=== PATIENT | female | born 1940 | race Caucasian/White ===

== ENCOUNTER 2016-12-11 02:48 | Emergency (ER) | payer MEDICARE, MEDICAID ==
[~2016-12-11] VITALS: Ht 167.6 cm; Wt 68.0 kg
[~2016-12-11 02:48] MED LIST: ACYC800T PO; AMLO10TA82 PO; APIX5TAB PO; APIX5TAB2 PO; ASPI-933 PO; BISO1TAB39 PO; BISO1TAB6 PO; BUME0.5T3 PO; CALC-654 PO; CARV3.12 PO; CIPR500T4; CLN.1T PO; CRV25T PO; DIGO250T PO; DILT120C PO; DILT240C53 PO; DLT120CCR PO; FURO20TA4 PO; HCT25T PO; HYDR-34 PO; HYDR25TA4 PO; IRBE300T13 PO; LOSA100T7 PO; MAGN400C PO; MECL25TA56 PO; METH4TAB PO; METO-333 PO; METO100T2 PO; MINO2.5T PO; NF-VAL40T PO; NITR-65 PO; OMG1KC PO; PITA1TAB2 PO; POTA8TAB6 PO; RT-ALBUINH INH; TIOT4MIS2 INH; VALS80TA30 PO; ZINC50TA51 PO
[2016-12-11] MEDS ORDERED: POTA8TAB6 PO (03:05)
[2016-12-11] MEDS ORDERED: HYDR-3812 PO (03:05)
[2016-12-11] MEDS ORDERED: TIOT4MIS2 INH (03:05)
[2016-12-11] MEDS ORDERED: VALS80TA PO (03:05)
[2016-12-11] MEDS ORDERED: RT-ALBUINH INH (03:05)
[2016-12-11] MEDS ORDERED: cloNIDine 0.1 MG (CATAPRES) TAB PO ONE ×2 (03:15→04:00)
--- NOTE | 2016-12-11 03:20 | ED Cardiac General ---
History of Present Illness General Chief Complaint: Cardiac/General Problems Stated Complaint: HIGH BLOOD PRESSURE Nursing Triage Note: REPORTS HYPERTENSION. Source: patient (SOMEWHAT LIMITED HISTORIAN) History of Present Illness Time seen by provider: 02:55 Initial Comments PT ARRIVES VIA POV FROM HOME C/O ELEVATED BP--WAS 200/100 PT COMPLETELY ASYMPTOMATIC--NO CHEST PAIN, NO PALPITATIONS, NO SHORTNESS OF BREATH, NO HEADACHE, NO VISION CHANGES, NO DIZZINESS, NO NAUSEA/VOMITING, NO PARESTHESIAS OR MOTOR DEFICITS PT STATES SHE TOOK HER BP MEDS AT 0900 YESTERDAY AM, AND SECOND DOSE AN HOUR AGO STATES SHE NORMALLY SLEEPS DURING THE DAY AND IS AWAKE AT NIGHT, WAS GETTING READY TO GO TO BED JUST PRIOR TO ARRIVAL AND DECIDED TO CHECK HER BP AND IT WAS ELEVATED, SO SHE CAME HERE PT HAS LUNG CANCER, AND HAD SURGERY ON RIGHT LUNG 2 1/2 YEARS AGO. NO CHEMO OR RADIATION AT THAT TIME. PT RECENTLY HAS HAD A RECURRENCE AND WAS AT ONCOLOGIST OFFICE YESTERDAY AM AT 10 :00 TO ARRANGE FOR RADIATION TREATMENTS. WAS TOLD HER BP WAS "HIGH" AT THAT TIME , BUT DOES NOT REMEMBER HOW HIGH IT WAS PT HAS A LONG HISTORY OF HTN, CHF AND ATRIAL FIBRILLATION AND TAKES ELIQUIS, ASPIRIN 81 MG, CARDIZEM 240 MG, LASIX 20 MG, METOPROLOL 100 MG BID PT HAS BEEN TO ER SEVERAL TIMES FOR THIS SAME COMPLAINT OF ELEVATED BP PCP: ALCIDES BARNARD CYLINDER HONER: DR. OLIVO ONCOLOGY: INES KEARNEY Allergies and Home Medications Allergies Coded Allergies: Penicillins (Unverified Allergy, Mild, RASH, 09/24/10) RUPAL Inhibitors (Verified Allergy, Unknown, HIVES, 12/11/16) atorvastatin (Verified Allergy, Unknown, HIVES, 12/11/16) iodine (Verified Allergy, Unknown, HIVES, 12/11/16) Home Medications Albuterol Sulfate 18 Gm Hfa.aer.ad #18 1 INHALER INH UD (Reported) Apixaban 5 Mg Tablet 5 MG PO BID (Reported) LAST FILLED #60 6-16 Aspirin 81 Mg Tablet.dr 81 MG PO HS (Reported) Calcium Carbonate/Vitamin D3 1 Each Tablet 1 TAB PO HS (Reported) Diltiazem HCl 240 Mg Cap.er.24h 240 MG PO DAILY (Reported) LAST FILLED #30 6-9-16 Furosemide 20 Mg Tablet #30 20 MG PO DAILY Prescribed by: LICHA ANDERSON on 07/10/16 0953 Hydrocodone/Acetaminophen 1 Each Tablet #60 1 TAB PO UD (Reported) Magnesium Oxide 400 Mg Capsule 800 MG PO HS (Reported) TAKES 2 (400MG) CAPSULES Metoprolol Tartrate 100 Mg Tablet 100 MG PO BID (Reported) LAST FILLED #180 3-6-16 [place] 3 Polyunsat Fatty Acids 1,000 Mg Cap 3,000 MG PO HS (Reported) TAKES 3 (1000MG) CAPSULES Potassium Chloride 8 Meq Tablet.er #30 1 TAB PO UD (Reported) Tiotropium [place] 4 Gm Mist.inhal #4 1 INHALER INH UD (Reported) Valsartan 80 Mg Tablet 80 MG PO UD (Reported) Review of Systems Constitutional: no symptoms reported Respiratory: No Symptoms Reported Cardiovascular: See HPIDenies Chest Pain, Denies Edema, Denies Irregular Heart Rate, Denies Lightheadedness, Denies Palpitations, Denies Syncope Gastrointestinal: No Symptoms Reported Genitourinary: No Symptoms Reported Musculoskeletal: no symptoms reported Skin: no symptoms reported Psychiatric/Neurological: No Symptoms Reported Endocrine: No Symptoms Reported Hematologic/Lymphatic: No Symptoms Reported Past Iovcbzz-Woklmq-Blrnmq Hx Patient Social History Alcohol Use: Denies Use Recreational Drug Use: No Smoking Status: Former Smoker Type Used: Cigarettes Former Smoker/When Quit: Mar 15, 1982 Recent Foreign Travel: No Contact w/Someone Who Travel: No Recent Infectious Disease Expo: No Recent Hopitalizations: No Physical Abuse Screen: No Sexual Abuse: No Immunizations Up To Date Date of Pneumonia Vaccine: Aug 17, 2013 Date of Influenza Vaccine: Sep 07, 2013 Seasonal Allergies Seasonal Allergies: No Surgeries HX Surgeries: Yes (CARDIAC CATH; RIGHT LUNG RESECTION/TUMOR REMOVAL) Surgeries: Cardiac, Gallbladder, Hysterectomy, Lobectomy, Tonsillectomy Respiratory Hx Respiratory Disorders: Yes (+ 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. 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 Genitourinary Hx Genitourinary Disorders: Yes Genitourinary Disorders: Bladder Infection Gastrointestinal Hx Gastrointestinal Disorders: Yes (HAD GALL BLADDER DISEASE - REMOVED A LONG TIME AGO) Gastrointestinal Disorders: Gall Bladder Disease Musculoskeletal Hx Musculoskeletal Disorders: No Endocrine Hx Endocrine Disorders: No HEENT HX ENT Disorders: Yes HEENT Disorders: Cataract Cancer Hx Cancer: Yes (S/P RIGHT LUNG RESECTION) Cancer: Lung Psychosocial Hx Psychiatric Problems: Yes Behavioral Health Disorders: Anxiety, Bipolar, Depression Integumentary HX Skin/Integumentary Disorder: No Blood Transfusions Hx Blood Disorders: No Adverse Reaction to a Blood Tr: No Family Medical History Family Medial History: Patient reports no known family medical history. Physical Exam Vital Signs Vital Sign - Last 12Hours 12/11/16 03:05 Temp 97.8 Pulse 97 Resp 18 B/P 183/97 Pulse Ox 98 O2 Delivery Room Air Capillary Refill : Less Than 3 Seconds General Appearance: No Apparent Distress Anxious HEENT: PERRL/EOMI Neck: Full Range of Motion Normal Inspection Non Tender SuppleNo Carotid Bruit , No JVD Respiratory: Normal Breath Sounds No Accessory Muscle Use No Respiratory Distress Cardiovascular: No Edema No JVD No Murmur Normal Peripheral Pulses Irregularly Irregular Gastrointestinal: Normal Bowel Sounds No Organomegaly No Pulsatile Mass Non Tender Soft Extremity: Normal Capillary Refill Normal Inspection Normal Range of Motion Non Tender No Calf Tenderness Neurologic/Psychiatric: Alert Oriented x3 No Motor/Sensory 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 DTR'S INTACT. ) Skin: Normal Color Warm/Dry Progress/Results/Core Measures Results/Orders My Orders Orders-JASPREET OWENS DO Clonidine Tablet (Catapres Tablet) (12/11/16 03:15) Clonidine Tablet (Catapres Tablet) (12/11/16 04:00) Medications Given in ED Current Medications Medications Dose Ordered Sig/Ayan Route Start Time Stop Time Status Last Admin Dose Admin Clonidine HCl 0.1 mg ONCE ONCE PO 12/11/16 03:15 12/11/16 03:17 DC 12/11/16 03:19 0.1 MG Clonidine HCl 0.1 mg ONCE ONCE PO 12/11/16 04:00 12/11/16 04:01 DC 12/11/16 04:15 0.1 MG Vital Signs/I&O Vital Sign - Last 12Hours 12/11/16 12/11/16 12/11/16 12/11/16 03:05 03:31 03:46 04:00 Temp 97.8 Pulse 97 86 92 91 Resp 18 16 16 23 B/P 183/97 156/99 161/102 155/96 Pulse Ox 98 98 96 97 O2 Delivery Room Air Room Air Room Air Room Air 12/11/16 04:30 Pulse 90 Resp 22 B/P 143/86 Pulse Ox 97 O2 Delivery Room Air Blood Pressure Mean: 125 Progress Note : Progress Note BP DOWN TO 143/86 AT DISMISSAL PT RESTING QUIETLY FOR REMAINDER OF ER STAY Departure Impression Impression: Primary Impression: Hypertensive urgency Disposition: HOME, SELF-CARE Condition: Improved Departure-Patient Inst. Referrals: SANDY MAJANO DO (PCP) Primary Care Physician Patient Instructions: Heart Healthy Diet, High Blood Pressure (DC), High Blood Pressure Emergencies Add. Discharge Instructions: TAKE YOUR MEDICATIONS EXACTLY PRESCRIBED FOLLOW UP WITH DR. OLIVO THIS WEEK FOR FURTHER CARE RETURN TO ER IF PROBLEMS WORSEN All discharge instructions reviewed with patient and/or family. Voiced understanding. JASPREET OWENS DO Dec 11, 2016 03:20
[2016-12-11 03:31] VITALS: BP 156/99
[2016-12-11 03:46] VITALS: BP 161/102
[2016-12-11 04:00] VITALS: BP 155/96
[2016-12-11 04:30] VITALS: BP 143/86
[2016-12-11 04:41] VITALS: BP 143/86
== END 2016-12-11 04:40 | disposition home or self-care (01) ==
LOC: EDUNIT# 02:48 → ER 02:51
DX: I16.0 Hypertensive urgency (principal); I48.2 Chronic atrial fibrillation; I50.9 Heart failure, unspecified; C34.90 Malignant neoplasm of unspecified part of unspecified bronchus or lung; Z87.891 Personal history of nicotine dependence; Z79.82 Long term (current) use of aspirin; Z79.01 Long term (current) use of anticoagulants; Z79.899 Other long term (current) drug therapy
CPT/HCPCS: 99283

== ENCOUNTER 2017-03-06 21:33 | Inpatient (IN) | payer MEDICARE, MEDICAID ==
[~2017-03-06] VITALS: Ht 166.4 cm; Wt 76.3 kg
[~2017-03-06 21:33] MED LIST changes: +HYDR-3812 PO; +VALS80TA PO
[2017-03-06 21:45] VITALS: BP 150/79
--- NOTE | 2017-03-06 21:57 | Diagnostic Imaging Report ---
INDICATION: Right-sided weakness and headache. EXAMINATION: Frontal chest was obtained at 9:51 p.m. COMPARISON: 10/14/16. FINDINGS: There is cardiomegaly. There is minimal central vascular prominence. There is some residual scarring or parenchymal density in the right base which is similar to the prior study. The left lung is clear. There is biapical bullous disease. IMPRESSION: Cardiomegaly. COPD changes. Stable parenchymal scarring or density in the right base compared with 10/14/16. Dictated by: Dictated on workstation # [id number]
--- NOTE | 2017-03-06 21:58 | Diagnostic Imaging Report ---
INDICATION: Right-sided weakness and headache. EXAMINATION: Noncontrast brain CT was performed. COMPARISON: 05/28/13. FINDINGS: There are mild atrophic changes. There is no focal parenchymal abnormality in the brain. There is no extra-axial fluid collection. Ventricles are normal in size and position. Calvarial windows are unremarkable. The visualized portions of the orbits and sinuses appear unremarkable. IMPRESSION: Mild atrophic changes with no acute intracranial abnormality. Stable appearance compared with 05/28/13. Dictated by: Dictated on workstation # [id number]
--- NOTE | 2017-03-06 22:14 | ED Neurological Problem ---
General Chief Complaint: Neuro-Stroke Like Symptoms Stated Complaint: WEAKNESS Source: patient Exam Limitations: no limitations History of Present Illness Time seen by provider: 21:38 Initial Comments This 76 year old woman presents to the ER with headache, dizziness, SOA, and right-sided leg weakness. Last known well time was about 04:00 when she went to bed. The headache, dizziness and shortness of air have been present all day since waking at around 13:00. The right leg weakness/ataxia started about 30 minutes prior to arrival. Patient is on Eliquis and therefore is not a TPA candidate. She has a significant cardiac history including atrial fibrillation and congestive heart failure. She also has a history of lung cancer. 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 Her primary care provider is Dr. Donato in [place]. Her oncologist is Dr. Mejía in [place]. A partial NIH was performed before CT scan with a score of 2 for ataxia and right leg weakness. Upon returning from CT, a full NIH stroke assessment was performed with a score of 2 for right leg ataxia and dysarthria. Patient's reports her speech is a little slurred from usual. The strength in the leg improved while in CT. Allergies and Home Medications Allergies Coded Allergies: Penicillins (Unverified Allergy, Mild, RASH, 09/24/10) RUPAL Inhibitors (Verified Allergy, Unknown, HIVES, 12/11/16) atorvastatin (Verified Allergy, Unknown, HIVES, 12/11/16) iodine (Verified Allergy, Unknown, HIVES, 12/11/16) Home Medications Albuterol Sulfate 18 Gm Hfa.aer.ad, 1 INHALER INH UD, #18 (Reported) Apixaban 5 Mg Tablet, 5 MG PO BID, (Reported) LAST FILLED #60 05-14-16 Aspirin 81 Mg Tablet.dr, 81 MG PO HS, (Reported) Calcium Carbonate/Vitamin D3 1 Each Tablet, 1 TAB PO HS, (Reported) Diltiazem HCl 240 Mg Cap.er.24h, 240 MG PO DAILY, (Reported) LAST FILLED #30 05-03-16 Furosemide 20 Mg Tablet, 20 MG PO DAILY, #30 Ref 11 Prescribed by: LICHA ANDERSON on 07/10/16 0953 Hydrocodone/Acetaminophen 1 Each Tablet, 1 TAB PO UD, #60 (Reported) Magnesium Oxide 400 Mg Capsule, 800 MG PO HS, (Reported) TAKES 2 (400MG) CAPSULES Metoprolol Tartrate 100 Mg Tablet, 100 MG PO BID, (Reported) LAST FILLED #180 3-6-16 [place] 3 Polyunsat Fatty Acids 1,000 Mg Cap, 3,000 MG PO HS, (Reported) TAKES 3 (1000MG) CAPSULES Potassium Chloride 8 Meq Tablet.er, 1 TAB PO UD, #30 (Reported) Tiotropium [place] 4 Gm Mist.inhal, 1 INHALER INH UD, #4 (Reported) Valsartan 80 Mg Tablet, 80 MG PO UD, (Reported) Constitutional: no symptoms reported Eyes: No Symptoms Reported Ears, Nose, Mouth, Throat: no symptoms reported Respiratory: see HPI Cardiovascular: see HPI Gastrointestinal: no symptoms reported Genitourinary: no symptoms reported : No Musculoskeletal: no symptoms reported Skin: no symptoms reported Psychiatric/Neurological: See HPI Endocrine: No Symptoms Reported Hematologic/Lymphatic: No Symptoms Reported Past Bjjfdrw-Nuxuib-Zgmuic Hx Patient Social History Type Used: Cigarettes Former Smoker/When Quit: Mar 15, 1982 Recent Hopitalizations: No Immunizations Up To Date Date of Pneumonia Vaccine: Aug 17, 2013 Date of Influenza Vaccine: Sep 07, 2013 Seasonal Allergies Seasonal Allergies: No Surgeries HX Surgeries: Yes (CARDIAC CATH; RIGHT LUNG RESECTION/TUMOR REMOVAL) Surgeries: Cardiac (cardiac catheter 2012), Gallbladder, Hysterectomy, Lobectomy, Tonsillectomy Respiratory Hx Respiratory Disorders: Yes (+ 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. 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 Genitourinary Hx Genitourinary Disorders: Yes Genitourinary Disorders: Bladder Infection Gastrointestinal Hx Gastrointestinal Disorders: Yes (HAD GALL BLADDER DISEASE - REMOVED A LONG TIME AGO) Gastrointestinal Disorders: Gall Bladder Disease Musculoskeletal Hx Musculoskeletal Disorders: No Endocrine Hx Endocrine Disorders: No HEENT HX ENT Disorders: Yes HEENT Disorders: Cataract Cancer Hx Cancer: Yes (LBBB, LVH, chf, diastolic heart failure) Cancer: Lung Psychosocial Hx Psychiatric Problems: Yes Behavioral Health Disorders: Anxiety, Bipolar, Depression Integumentary HX Skin/Integumentary Disorder: No Blood Transfusions Hx Blood Disorders: No Adverse Reaction to a Blood Tr: No Family Medical History Family Medial History: Patient reports no known family medical history. Physical Exam Vital Signs Vital Sign - Last 12Hours 03/06/17 03/06/17 03/06/17 21:35 21:45 22:03 Temp 99.3 Pulse 72 Resp 18 B/P (MAP) 150/79 Pulse Ox 99 O2 Delivery Nasal Cannula O2 Flow Rate 2.00 Capillary Refill : General Appearance: WD/WN, no apparent distress HEENT: PERRL/EOMI, normal ENT inspection, pharynx normal Neck: normal inspection Respiratory: lungs clear, normal breath sounds, no respiratory distress, no accessory muscle use Cardiovascular: no edema, no murmur, irregularly irregular Gastrointestinal: normal bowel sounds, non tender, soft Extremities: non-tender, normal inspection, no pedal edema Neurologic/Psychiatric: measurement advisor II-XII nml as tested, alert, normal mood/affect, oriented x 3, abnormal cerebellar tests (slight ataxia of the right lower extremity), abnormal gait (unable to coordinate and bear weight appropriately on the right lower extremity), motor weakness (drift of the right lower extremity) Crainal Nerves: normal hearing, PERRL, abnormal speech (slight dysarthria) Coordination/Gait: normal finger to nose, abnormal gait Motor/Sensory: no sensory deficit, no pronator drift Skin: normal color, warm/dry Progress/Results/Core Measures Results/Orders Lab Results Laboratory Tests Test 03/06/17 21:59 03/06/17 22:00 03/06/17 22:16 03/06/17 22:25 Range/Units Glucometer 128 H 70-110 MG/DL White Blood Count 7.7 4.3-11.0 10^3/uL Red Blood Count 4.06 L 4.35-5.85 10^6/uL Hemoglobin 12.0 11.5-16.0 G/DL Hematocrit 38 35-52 % Mean Corpuscular Volume 93 80-99 FL Mean Corpuscular Hemoglobin 30 25-34 PG Mean Corpuscular Hemoglobin Concent 32 32-36 G/DL Red Cell Distribution Width 13.9 10.0-14.5 % Platelet Count 348 130-400 10^3/uL Mean Platelet Volume 9.7 7.4-10.4 FL Neutrophils (%) (Auto) 70 42-75 % Lymphocytes (%) (Auto) 18 12-44 % Monocytes (%) (Auto) 10 0-12 % Eosinophils (%) (Auto) 2 0-10 % Basophils (%) (Auto) 0 0-10 % Neutrophils # (Auto) 5.4 1.8-7.8 X 10^3 Lymphocytes # (Auto) 1.4 1.0-4.0 X 10^3 Monocytes # (Auto) 0.7 0.0-1.0 X 10^3 Eosinophils # (Auto) 0.2 0.0-0.3 10^3/uL Basophils # (Auto) 0.0 0.0-0.1 10^3/uL Sodium Level 138 135-145 MMOL/L Potassium Level 5.7 H 3.6-5.0 MMOL/L Chloride Level 105 98-107 MMOL/L Carbon Dioxide Level 18 L 21-32 MMOL/L Anion Gap 15 H 5-14 MMOL/L Blood Urea Nitrogen 26 H 7-18 MG/DL Creatinine 1.46 H 0.60-1.30 MG/DL Estimat Glomerular Filtration Rate 35 BUN/Creatinine Ratio 18 Glucose Level 116 H 70-105 MG/DL Calcium Level 9.3 8.5-10.1 MG/DL Magnesium Level 2.3 1.8-2.4 MG/DL Total Bilirubin 0.3 0.1-1.0 MG/DL Aspartate Amino Transf (AST/SGOT) 28 5-34 U/L Alanine Aminotransferase (ALT/SGPT) 16 0-55 U/L Alkaline Phosphatase 104 40-136 U/L Troponin I < 0.30 <0.30 NG/ML B-Type Natriuretic Peptide 412.8 H <100.0 PG/ML Total Protein 7.9 6.4-8.2 G/DL Albumin 4.1 3.2-4.5 G/DL Prothrombin Time 13.3 12.2-14.7 SEC INR Comment 1.0 0.8-1.4 Activated Partial Thromboplast Time 30 24-35 SEC D-Dimer 0.33 0.00-0.49 UG/ML Urine Color YELLOW Urine Clarity CLEAR Urine pH 6 5-9 Urine Specific [place] 1.015 L 1.016-1.022 Urine Protein 3+ H NEGATIVE Urine Glucose (UA) NEGATIVE NEGATIVE Urine Ketones NEGATIVE NEGATIVE Urine Nitrite NEGATIVE NEGATIVE Urine Bilirubin NEGATIVE NEGATIVE Urine Urobilinogen NORMAL NORMAL MG/DL Urine Leukocyte Esterase 3+ H NEGATIVE Urine RBC (Auto) NEGATIVE NEGATIVE Urine RBC NONE /HPF Urine WBC 10-25 H /HPF Urine Squamous Epithelial Cells 10-25 H /HPF Urine Crystals PRESENT H /LPF Urine Calcium Oxalate Crystals FEW H /LPF Urine Bacteria FEW H /HPF Urine Casts PRESENT /LPF Urine Hyaline Casts 5-10 H /LPF Urine Mucus NEGATIVE /LPF Urine Culture Indicated YES My Orders Orders - ZULY BRYANT MD Cbc With Automated Diff (03/06/17 21:39) Protime With Inr (03/06/17 21:39) Partial Thromboplastin Time (03/06/17 21:39) Comprehensive Metabolic Panel (03/06/17 21:39) Fibrin Degradation Products (03/06/17 21:39) Troponin I (03/06/17 21:39) Ua Culture If Indicated (03/06/17 21:39) Chest 1 View, Ap/Pa Only (03/06/17 21:39) Ekg Tracing (03/06/17 21:39) Accucheck Stat ONCE (03/06/17 21:39) Saline Lock/Iv-Start (03/06/17 21:39) Saline Lock/Iv-Start (03/06/17 21:39) Vital Signs-Stroke Q1H (03/06/17 21:39) Ct Head Wo-R/O Stroke (03/06/17 21:39) O2 (03/06/17 21:39) Intake & Output 06,14,22 (03/06/17 21:39) Monitor-Rhythm Ecg Trace Only (03/06/17 21:39) Dysphagia Screening Tool (03/06/17 21:39) Magnesium (03/06/17 22:15) BNP (03/06/17 22:15) Ns Iv 1000 Ml (Sodium Chloride 0.9%) (03/06/17 22:46) Urine Culture (03/06/17 22:25) Ciprofloxacin Iv 400mg/200ml (Cipro Iv S (03/06/17 23:30) Acetaminophen Tablet (Tylenol Tablet) (03/06/17 23:30) Aspirin Tablet (Aspirin Tablet) (03/06/17 23:30) Medications Given in ED Current Medications Medications Dose Ordered Sig/Ayan Route Start Time Stop Time Status Last Admin Dose Admin Acetaminophen 1,000 mg ONCE ONCE PO 03/06/17 23:30 03/06/17 23:31 DC 03/06/17 23:36 1,000 MG Aspirin 325 mg ONCE ONCE PO 03/06/17 23:30 03/06/17 23:31 DC 03/06/17 23:35 325 MG Ciprofloxacin/ Dextrose 200 ml @ 200 mls/hr ONCE ONCE IV 03/06/17 23:30 03/07/17 00:29 DC 03/06/17 23:37 200 MLS/HR Sodium Chloride 1,000 ml @ 0 mls/hr Q0M ONCE IV 03/06/17 22:46 03/06/17 22:47 DC 03/06/17 22:55 1,000 MLS/HR Vital Signs/I&O Vital Sign - Last 12Hours 03/06/17 03/06/17 03/06/17 03/06/17 21:35 21:45 22:03 22:15 Temp 99.3 Pulse 72 78 74 Resp 18 18 13 B/P (MAP) 150/79 150/79 150/71 Pulse Ox 99 99 99 O2 Delivery Nasal Cannula Nasal Cannula O2 Flow Rate 2.00 2.00 03/06/17 03/06/17 22:45 23:15 Pulse 58 52 Resp 15 19 B/P (MAP) 173/73 173/73 Pulse Ox 99 96 Point of Care Testing Finger Stick Blood Glucose: 128 Blood Glucose Action Taken: RN NOTIFIED Progress Note #1: Time: 22:48 Progress Note Stroke activation was paged shortly after patient's arrival. CT showed no evidence of CVA or hemorrhage. Patient was found to be hyperkalemic and in acute renal failure. A liter of IV saline was ordered. Progress Note #2: Progress Note Weakness and ataxia of the right lower extremity improved the patient was still unsteady on her feet. Patient was found to have urinary tract infection and Cipro was given. Tylenol was given for headache. ECG Initial ECG Impression Date: Mar 06, 2017 Initial ECG Impression Time: 22:03 Initial ECG Rate: 76 Initial ECG Rhythm: A Fib/Flutter Comment Atrial fibrillation/flutter with controlled rate at 76. No acute ST elevation or depression. Chronic left bundle branch block. Diagnostic Imaging Diagonstic Imaging: CT Plain Films/CT/US/NM/MRI: head Comments CT head viewed by me and report reviewed. See report below: NAME: [facility] REC#: [id number] PT STATUS: REG ER : 1940 PHYSICIAN: ZULY BRYANT MD ADMIT DATE: 03/06/17/ER Signed Date of Exam: 03/06/17 CT HEAD WO-R/O STROKE INDICATION: Right-sided weakness and headache. EXAMINATION: Noncontrast brain CT was performed. COMPARISON: 05/28/13. FINDINGS: There are mild atrophic changes. There is no focal parenchymal abnormality in the brain. There is no extra-axial fluid collection. Ventricles are normal in size and position. Calvarial windows are unremarkable. The visualized portions of the orbits and sinuses appear unremarkable. IMPRESSION: Mild atrophic changes with no acute intracranial abnormality. Stable appearance compared with 05/28/13. Dictated by: Dictated on workstation # [id number] <Dictated by JUN COTA MD> Diagonstic Imaging: Xray Plain Films/CT/US/NM/MRI: chest Comments Chest x-ray viewed by me and report reviewed. See report below: NAME: [facility] REC#: [id number] PT STATUS: REG ER : 1940 PHYSICIAN: ZULY BRYANT MD ADMIT DATE: 03/06/17/ER Signed Date of Exam:03/06/17 CHEST 1 VIEW, AP/PA ONLY INDICATION: Right-sided weakness and headache. EXAMINATION: Frontal chest was obtained at 9:51 p.m. COMPARISON: 10/14/16. FINDINGS: There is cardiomegaly. There is minimal central vascular prominence. There is some residual scarring or parenchymal density in the right base which is similar to the prior study. The left lung is clear. There is biapical bullous disease. IMPRESSION: Cardiomegaly. COPD changes. Stable parenchymal scarring or density in the right base compared with 10/14/16. Dictated by: Dictated on workstation # [id number] Dict: 03/[id number] Trans: 03/06/172158 [facility] [id number] Interpreted by: JUN COTA MD Electronically signed by: JUN COTA MD 03/06/17 [id number] Departure Communication Time/Spoke to Admitting Phy: 23:[address] Lee Communication/Consulting Dr. Rdz was also consulted due to patient's chronic cardiac problems. Impression Impression: Primary Impression: Ataxia Additional Impressions: Hyperkalemia Urinary tract infection Qualified Codes: N39.0 - Urinary tract infection, site not specified Headache Qualified Codes: R51 - Headache Acute renal insufficiency Disposition: ADMITTED INPATIENT Condition: Improved Decision to Admit Reason: Admit from ER (General) Decision to Admit/Date: Mar 06, 2017 Time/Decision to Admit Time: 22:00 Departure-Patient Inst. Referrals: NO,LOCAL PHYSICIAN (PCP/Family) Primary Care Physician ZULY BRYANT MD Mar 06, 2017 22:14
[2017-03-06 22:15] VITALS: BP 150/71
[2017-03-06 22:19] LABS: RED BLOOD COUNT 4.06 10^6/uL (4.35-5.85); WHITE BLOOD COUNT 7.7 10^3/uL (4.3-11.0)
[2017-03-06 22:20] LABS: BASOPHILS % (AUTO) 0 % (0-10); EOSINOPHILS # (AUTO) 0.2 10^3/uL (0.0-0.3); EOSINOPHILS % (AUTO) 2 % (0-10); LYMPHOCYTES # (AUTO) 1.4 X 10^3 (1.0-4.0); LYMPHOCYTES % (AUTO) 18 % (12-44); MEAN CORPUSCULAR HEMOGLOBIN 30 PG (25-34); MEAN CORPUSCULAR HGB CONC 32 G/DL (32-36); MEAN CORPUSCULAR VOLUME 93 FL (80-99); MEAN PLATELET VOLUME 9.7 FL (7.4-10.4); MONOCYTES # (AUTO) 0.7 X 10^3 (0.0-1.0); MONOCYTES % (AUTO) 10 % (0-12); NEUTROPHILS # (AUTO) 5.4 X 10^3 (1.8-7.8); NEUTROPHILS % (AUTO) 70 % (42-75); PLATELET COUNT 348 10^3/uL (130-400); RED CELL DISTRIBUTION WIDTH 13.9 % (10.0-14.5)
[2017-03-06 22:33] LABS: BILIRUBIN,URINE NEGATIVE (NEGATIVE); KETONES,URINE NEGATIVE (NEGATIVE); LEUKOCYTE ESTERASE ,URINE 3+ (NEGATIVE); NITRITE,URINE NEGATIVE (NEGATIVE); PH,URINE 6 (5-9); PROTEIN,URINE 3+ (NEGATIVE); UROBILINOGEN,URINE NORMAL (NORMAL)
[2017-03-06 22:37] LABS: ALANINE AMINOTRANSFERASE 16 U/L (0-55); ALBUMIN 4.1 G/DL (3.2-4.5); ANION GAP 15 MMOL/L (5-14); ASPARTATE AMINO TRANSFERASE 28 U/L (5-34); BILIRUBIN,TOTAL 0.3 MG/DL (0.1-1.0); BLOOD UREA NITROGEN 26 MG/DL (7-18); BUN/CREATININE RATIO 18; CALCIUM 9.3 MG/DL (8.5-10.1); CARBON DIOXIDE 18 MMOL/L (21-32); CHLORIDE 105 MMOL/L (98-107); CREATININE SERUM 1.46 MG/DL (0.60-1.30); GFR ESTIMATED 35; GLUCOSE 116 MG/DL (70-105); POTASSIUM 5.7 MMOL/L (3.6-5.0); SODIUM 138 MMOL/L (135-145); TOTAL PROTEIN 7.9 G/DL (6.4-8.2)
[2017-03-06 22:38] LABS: PROTHROMBIN TIME PATIENT 13.3 SEC (12.2-14.7)
[2017-03-06 22:43] LABS: TROPONIN I < 0.30 NG/ML (<0.30)
[2017-03-06 22:45] VITALS: BP 173/73
[2017-03-06] MEDS ORDERED: NS IV 1000 ML 1,000 ML IV ONE (22:46)
[2017-03-06 22:50] LABS: CALCIUM OXALATE CRYSTALS,UR FEW /LPF
[2017-03-06 23:15] VITALS: BP 173/73
[2017-03-06] MEDS ORDERED: ACETAMINOPHEN 500 MG TAB (TYLENOL) PO ONE (23:30)
[2017-03-06] MEDS ORDERED: CIPROFLOXACIN IV 400MG/200ML 200 ML IV ONE (23:30)
[2017-03-06] MEDS ORDERED: ASPIRIN 325 MG (5 GR) TABLET PO ONE (23:30)
[2017-03-06 23:45] VITALS: BP 169/79
[2017-03-07] VITALS (9 sets, daily range): BP systolic 136–173; BP diastolic 63–82
[2017-03-07] MEDS ORDERED: NS IV 1000 ML 1,000 ML IV SCH (01:15)
[2017-03-07 05:11] LABS: BASOPHILS % (AUTO) 0 % (0-10); EOSINOPHILS # (AUTO) 0.1 10^3/uL (0.0-0.3); EOSINOPHILS % (AUTO) 1 % (0-10); LYMPHOCYTES # (AUTO) 0.8 X 10^3 (1.0-4.0); LYMPHOCYTES % (AUTO) 11 % (12-44); MEAN CORPUSCULAR HEMOGLOBIN 29 PG (25-34); MEAN CORPUSCULAR HGB CONC 32 G/DL (32-36); MEAN CORPUSCULAR VOLUME 92 FL (80-99); MEAN PLATELET VOLUME 9.6 FL (7.4-10.4); MONOCYTES # (AUTO) 0.3 X 10^3 (0.0-1.0); MONOCYTES % (AUTO) 4 % (0-12); NEUTROPHILS # (AUTO) 6.4 X 10^3 (1.8-7.8); NEUTROPHILS % (AUTO) 84 % (42-75); PLATELET COUNT 273 10^3/uL (130-400); RED BLOOD COUNT 3.54 10^6/uL (4.35-5.85); RED CELL DISTRIBUTION WIDTH 13.7 % (10.0-14.5); WHITE BLOOD COUNT 7.6 10^3/uL (4.3-11.0)
[2017-03-07 05:26] LABS: CALCIUM 8.3 MG/DL (8.5-10.1); MAGNESIUM 1.7 MG/DL (1.8-2.4); POTASSIUM 4.4 MMOL/L (3.6-5.0)
[2017-03-07] MEDS: CIPROFLOXACIN 400 MG/D5W 200 ML (PRE-MIX) IV SCH ×2 (08:32→20:50)
[2017-03-07] MEDS ORDERED: meTOprolol TARTRATE 50 MG (LOPRESSOR) TAB PO SCH (09:00)
[2017-03-07] MEDS ORDERED: APIXABAN 5 MG (ELIQUIS) TABLET PO SCH (09:00)
[2017-03-07] MEDS ORDERED: DILTIAZEM 240 MG (CARDIZEM CD) CAP PO SCH (09:00)
[2017-03-07] MEDS ORDERED: ASPI325T32 PO (09:17)
[2017-03-07] MEDS ORDERED: FURO20TA4 PO (09:17)
[2017-03-07] MEDS ORDERED: TIOT4MIS2 IH (09:17)
[2017-03-07] MEDS ORDERED: VALS80TA30 PO (09:17)
[2017-03-07] MEDS ORDERED: BUDE10.2 INH (09:17)
[2017-03-07] MEDS ORDERED: RT-ALBUTEROL SULF 2.5 MG/3 ML PRE-MIX VIAL IH PRN (10:15)
[2017-03-07] MEDS ORDERED: HYDROcodone/APAP 5 MG/325 MG (LORTAB) TAB PO PRN (10:15)
--- NOTE | 2017-03-07 10:39 | Consultation-Cardiology ---
HPI-Cardiology Cardiology Consultation: Date of Consultation 03/07/17 Date of Admission Attending Physician Anita Lee DO Admitting Physician Amanda,Local Physician Consulting Physician Barber RDZ MD HPI: Chief Complaint: Stroke This is a 76-year-old lady with history of [id number] coronary artery disease, paroxysmal atrial fibrillation, diastolic congestive heart failure who presents with TIA/stroke. There is no residual neurological deficit at the time of my interview. She denies any significant chest pain however complains of mild shortness of breath. She denies any syncope, near-syncope or palpitations. She has been compliant with her Eliquis therapy. Review of Systems-Cardiology Review of Systems Constitutional: No As described under HPI, No no symptoms reported, No chills, No fever, No lightheadedness, No malaise, No tiredness, No weight loss, No weight gain, No other Eyes: No As described under HPI, No no symptoms reported, No blindness, No blurred vision, No contact lenses, No drainage, No decreased acuity, No foreign body sensation, No glasses, No inflammation, No pain, No photophobia, No previous injury, No shadows, No tunnel vision, No other, No vision change Ears/Nose/Throat: No As described under HPI, No no symptoms reported, No chronic hearing loss, No epistaxis, No ear discharge, No ear pain, No loose teeth, No mouth pain, No mouth swelling, No nasal drainage, No nose pain, No recent hearing loss, No throat pain, No throat swelling, No ulcerations, No other Respiratory: No no symptoms reported, No As described under HPI, No cough, No orthopnea, No shortness of breath, SOB with excertion, No SOB at rest, No stridor, No wheezing, No other Cardiovascular: No no symptoms reported, No As described under HPI, No chest pain, No edema, No irregular heart rate, No lightheadedness, No palpitations, No syncope, No other Gastrointestinal: No no symptoms reported, No As described under HPI, No abdomen distended, No abdominal pain, No blood streaked bowels, No constipation , No diarrhea, No difficulty swallowing, No nausea, No poor appetite, No poor fluid intake, No rectal bleeding, No vomiting, No other, No nausea/vomiting/ diarrhea, No stool coloration changes Genitourinary: No no symptoms reported, No As described under HPI, No burning, No dysuria, No discharge, No frequency, No flank pain, No hematuria, No incontinence, No pain, No urgency, No other, No urine frequency changes, No urine coloration changes : No Musculoskeletal: No no symptoms reported, No As describe under HPI, No back pain, No gout, No joint pain, No joint swelling, No muscle pain, No muscle stiffness, No neck pain, No other Skin: No no symptoms reported, No As described under HPI, No change in color, No change in hair/nails, No dryness, No lesions, No lumps, No rash, No other, No skin related problems, No ulcerations, No rash on exposed areas, No ulcerations on exposed areas Psychiatric/Neurological: As described under HPI Hematologic: No no symptoms reported, No As described under HPI, No anemia, No blood clots, No easy bleeding, No easy bruising, No swollen glands, No other, No bleeding abnormalities [id number] Hx Patient Social History Alcohol Use: Denies Use Recreational Drug Use: No Smoking Status: Former Smoker Former smoker/When Quit: Mar 15, 1982 Type Used: Cigarettes Recent Foreign Travel: No Recent Infectious Disease Expo: No Physical Abuse Screen: No Sexual Abuse: No Immunizations Up To Date Date of Pneumonia Vaccine: Aug 17, 2013 Date of Influenza Vaccine: Sep 07, 2013 Past Medical History PMH As described under Assessment. Family Medical History Family History: Patient reports no known family medical history. Allergies and Home Medications Allergies Coded Allergies: Penicillins (Unverified Allergy, Mild, RASH, 09/24/10) RUPAL Inhibitors (Verified Allergy, Unknown, HIVES, 12/11/16) atorvastatin (Verified Allergy, Unknown, HIVES, 12/11/16) iodine (Verified Allergy, Unknown, HIVES, 12/11/16) Home Medications Albuterol Sulfate 18 Gm Hfa.aer.ad, 2 PUFF INH Q4H PRN for SHORTNESS OF BREATH, (Reported) Apixaban 5 Mg Tablet, 5 MG PO BID, (Reported) LAST FILLED #60 01-20-17 Aspirin 325 Mg Tablet.dr, 325 MG PO DAILY, (Reported) Budesonide/Formoterol Fumarate 10.2 Gm Hfa.aer.ad, 2 PUFF INH BID, (Reported) Diltiazem HCl 240 Mg Cap.er.24h, 240 MG PO DAILY, (Reported) Furosemide 20 Mg Tablet, 20 MG PO DAILY, (Reported) LAST FILLED #60 01-06-17 Hydrocodone/Acetaminophen 1 Each Tablet, 1 TAB PO DAILY PRN for PAIN-SEVERE, ( Reported) Metoprolol Tartrate 100 Mg Tablet, 100 MG PO BID, (Reported) Potassium Chloride 8 Meq Tablet.er, 8 MEQ PO DAILY, (Reported) Tiotropium [place] 4 Gm Mist.inhal, 2 PUFF IH DAILY, (Reported) Valsartan 80 Mg Tablet, 80 MG PO BID, (Reported) LAST FILLED #60 01-13-17 Physical Exam-Cardiology Physical Exam Vital Signs/I&O Vital Sign - Last 12Hours 03/07/17 03/07/17 03/07/17 03/07/17 04:00 07:00 08:00 09:00 Temp 97.5 96.5 Pulse 56 58 58 Resp 18 20 B/P (MAP) 164/82 165/77 Pulse Ox 93 95 95 O2 Delivery Room Air Room Air Nasal Cannula O2 Flow Rate 2.00 03/07/17 03/07/17 03/07/17 11:15 12:00 13:00 Temp 97.5 Pulse 56 61 45 Resp 18 20 B/P (MAP) 139/70 154/69 Pulse Ox 96 92 O2 Delivery Room Air Nasal Cannula O2 Flow Rate 2.00 Capillary Refill : Less Than 3 Seconds Constitutional: No appears stated age, No AAO x 3, No apparent distress, No PERRL, No well-developed, No well-nourished, No other HEENT: No PERRL, No normal ENT inspection, No TMs normal, No pharynx normal, No scleral icterus (R), No scleral icterus (L), No pale conjunctivae (R), No pale conjunctivae (L), No photophobia, No TM abnormal (R), No TM abnormal (L), No pharyngeal erythema, No tonsillar exudate, No other, No discharge, No EOMI, No hearing is well preserved, No hard of hearing, No oral hygience is good, No ulceration, No xanthelasmas are seen Neck: No non-tender, No full range of motion, No supple, No normal inspection, No carotid bruit, No limited range of motion, No lymphadenopathy (R), No lymphadenopathy (L), No tender lateral, No tender midline, No thyromegaly, No other, No carotid pulses are 2 + bilaterally, No with good upstrokes Respiratory: No accessory muscle use, No respiratory distress, No chest tender , No chest expansion is symmetric, No chest is bilaterally symmetric, No lungs clear to percussion, No lungs clear to auscultation, No crackles, No rhonchi, No rales, No stridor, No wheezing, No pleural rub, No other Cardiovascular: No regular rate-rhythm, No irregularly irregular, No extra beats, No parasternal heave is noted, No JVD, No edema, No bradycardia, No tachycardia, No point of maximal impulse, No cardiac thrills are palpable, No S1 and S2, No gallop/S3, No gallop/S4, No diastolic murmur, No systolic murmur, No friction rub, No click, No other Gastrointestinal: No tender, No soft, No round, No distended, No pulsatile mass , No organomegaly, No guarding, No rebound, No tenderness, No hernia, No mass, No audible bowel sounds, No abnormal bowel sounds, No abdominal bruits, No spleenomegaly, No other Rectal: deferred Extremities: No normal range of motion, No non-tender, No normal inspection, No pedal edema, No calf tenderness, No normal capillary refill, No pelvis stable , No calf tenderness, No inflammation, No pedal edema, No slow capillary refill , No swelling, No other, No abrasion, No clubbing, No cyanosis, No ecchymosis, No laceration, No no lower extremity edema bilateral, No significant edema, No tenderness, No wound Neurologic/Psychiatric: alert, normal mood/affect, oriented x 3 Skin: No normal color, No warm/dry, No cyanosis, No cool, No diaphoresis, No damp, No ecchymosis, No jaundice, No mottled, No pallor, No rash, No tattoos/ piercings, No ulcerations, No rash on exposed areas, No ulcerations on exposed areas, No other Data Review Labs Laboratory Tests 03/06/17 21:59: Glucometer 128H 03/06/17 22:00: White Blood Count 7.7, Red Blood Count 4.06L, Hemoglobin 12.0, Hematocrit 38, Mean Corpuscular Volume 93, Mean Corpuscular Hemoglobin 30, Mean Corpuscular Hemoglobin Concent 32, Red Cell Distribution Width 13.9, Platelet Count 348, Mean Platelet Volume 9.7, Neutrophils (%) (Auto) 70, Lymphocytes (%) (Auto) 18, Monocytes (%) (Auto) 10, Eosinophils (%) (Auto) 2, Basophils (%) (Auto) 0, Neutrophils # (Auto) 5.4, Lymphocytes # (Auto) 1.4, Monocytes # (Auto) 0.7, Eosinophils # (Auto) 0.2, Basophils # (Auto) 0.0, Sodium Level 138, Potassium Level 5.7H, Chloride Level 105, Carbon Dioxide Level 18L, Anion Gap 15H, Blood Urea Nitrogen 26H, Creatinine 1.46H, Estimat Glomerular Filtration Rate 35, BUN/ Creatinine Ratio 18, Glucose Level 116H, Calcium Level 9.3, Magnesium Level 2.3 , Total Bilirubin 0.3, Aspartate Amino Transf (AST/SGOT) 28, Alanine Aminotransferase (ALT/SGPT) 16, Alkaline Phosphatase 104, Troponin I < 0.30, B- Type Natriuretic Peptide 412.8H, Total Protein 7.9, Albumin 4.1 03/06/17 22:16: Prothrombin Time 13.3, INR Comment 1.0, Activated Partial Thromboplast Time 30, D-Dimer 0.33 03/06/17 22:25: Urine Color YELLOW, Urine Clarity CLEAR, Urine pH 6, Urine Specific [place] 1.015L, Urine Protein 3+H, Urine Glucose (UA) NEGATIVE, Urine Ketones NEGATIVE, Urine Nitrite NEGATIVE, Urine Bilirubin NEGATIVE, Urine Urobilinogen NORMAL, Urine Leukocyte Esterase 3+H, Urine RBC (Auto) NEGATIVE, Urine RBC NONE, Urine WBC 10-25H, Urine Squamous Epithelial Cells 10-25H, Urine Crystals PRESENTH, Urine Calcium Oxalate Crystals FEWH, Urine Bacteria FEWH, Urine Casts PRESENT, Urine Hyaline Casts 5-10H, Urine Mucus NEGATIVE, Urine Culture Indicated YES 03/07/17 04:55: White Blood Count 7.6, Red Blood Count 3.54L, Hemoglobin 10.3L, Hematocrit 33L, Mean Corpuscular Volume 92, Mean Corpuscular Hemoglobin 29, Mean Corpuscular Hemoglobin Concent 32, Red Cell Distribution Width 13.7, Platelet Count 273, Mean Platelet Volume 9.6, Neutrophils (%) (Auto) 84H, Lymphocytes (%) (Auto) 11L , Monocytes (%) (Auto) 4, Eosinophils (%) (Auto) 1, Basophils (%) (Auto) 0, Neutrophils # (Auto) 6.4, Lymphocytes # (Auto) 0.8L, Monocytes # (Auto) 0.3, Eosinophils # (Auto) 0.1, Basophils # (Auto) 0.0, Sodium Level 138, Potassium Level 4.4, Chloride Level 107, Carbon Dioxide Level 21, Anion Gap 10, Blood Urea Nitrogen 21H, Creatinine 1.00, Estimat Glomerular Filtration Rate 54, BUN/ Creatinine Ratio 21, Glucose Level 117H, Calcium Level 8.3L, Magnesium Level 1.7L, B-Type Natriuretic Peptide 509.5H Radiology Echo 06/2016 IN CONCLUSION: 1. Normal left ventricular size and systolic function. Estimated ejection fraction 65%. Diastolic dysfunction is suggested by Doppler. 2. 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 3. Aortic valve sclerosis. No aortic stenosis. 4. Estimated pulmonary artery pressure of 10 mmHg. Nuclear stress test 12/2015: No perfusion abnormalities, normal LV function. ECG Impression ECG Initial ECG Rhythm: Normal Sinus A/P-Cardiology Assessment/Admission Diagnosis Acute stroke - unclear source. History of Acute CHF, diastolic (per echocardiogram of 07-09-16, LVEF 65%) - clinically compensated Normal left ventricular size and systolic function. Estimated ejection fraction 65%. Diastolic dysfunction is suggested by Doppler. 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 Aortic valve sclerosis. No aortic stenosis. Estimated pulmonary artery pressure of 10 mmHg. Per echocardiogram of June by Dr. Kmi Coronary artery disease, moderate in the left coronary system and moderate to moderately severe in the right coronary system on cardiac catheterization of . MPI of 01/17/16 did not show any significant ischemia and LVEF was 64%. 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 The patient is following with Dr Bradford of the Oncology services at [facility] History of hyperlipidemia being treated with statin therapy. Left bundle branch block. No evidence of any significant valvular heart disease on echocardiography of July 2013 Paroxysmal A. Fib, s/p elec cardioversion to sinus rhythm on09/06/13. Documented again on a visit of 05/20/14. Holter of 05/26/14 showed NSR with PACs and PVCs and episodes of PAF with ventricular rates upto 110 bpm and average vent rate 84 bpm. There was no VT or siginificant bradycardia. Presentation to ER on 03/02/15 with A fib/flutter with RVR, improved after addition of long- acting dilt to regimen Apixaban therapy for stroke prophylaxis Plan Patient with history of diastolic congestive heart failure, atrial fibrillation who presents with acute stroke with significant residual neurological deficit at this point in time. She has been on Eliquis for stroke prophylaxis. It is therefore unlikely that atrial fibrillation is the reason for her stroke. Other causes need to be evaluated. We repeated an echocardiogram with bubble study as well as contrast imaging. There was no evidence of intracardiac shunting. Contrast echocardiogram also did not reveal any LV clot. We'll recommend continuing current medical therapy which includes Eliquis. Thank you for your consultation. Please call me if you have any questions. Roc Rdz MD, FACP, FACC, FSCAI, FHRS, CCDS Interventional Cardiology Cardiac Electrophysiology Vascular Medicine and Endovascular Interventions Clinical Quality Measures DVT/VTE Risk/Contraindication: Risk Factor Score Per Nursin RFS Level Per Nursing on Admit: 4+=Very High Barber RDZ MD Mar 07, 2017 10:39 am
--- NOTE | 2017-03-07 10:41 | History & Physical-Hospitalist ---
HPI History of Present Illness: HPI/Chief Complaint CC: Ataxia with UTI HPI: This is a 76[address] pt of [address] Donato that presents to ER with dizziness and COLEY with right sided leg weakness. She has AF and on Eliquis and was not a TPA candidate. 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 Pt sees Dr. Cruz regularly for AF. Pt confirms hx of lung CA but states that radiology was effective in resolving CA. Pt is previous smoker. Pt confirms that Dr. Donato is PCP. Pt uses [facility]. Pt states that she vomited last night, and she still has some nausea and a minor COLEY. Pt also feels slightly dizzy. Pt congested. Pt denies hx of migraines. Physical exam stable. 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 Pt lives with at home. Pt received walker from PT, but does not have a walker at home. Pt does not have pacemaker or any metal in body. Pt previously had MRIs during CA treatment. Dr. Velasquez discusses obtaining MRI of brain, and pt is agreeable with this. Pt has not yet seen Dr. Rdz today. Scribed by Aleksander Rivas under the direct supervision of Dr. Velasquez. Source: patient, caregiver Date Seen 03/07/17 Attending Physician Anita Velasquez DO PCP No,Local Physician Referring Physician Date of Admission Mar 06, 2017 at 23:34 Home Medications & Allergies Home Medications Reviewed patient Home Medication Reconciliation Form Allergies Allergies Coded Allergies Penicillins (Unverified Allergy, Mild, RASH, 09/24/10) RUPAL Inhibitors (Verified Allergy, Unknown, HIVES, 12/11/16) atorvastatin (Verified Allergy, Unknown, HIVES, 12/11/16) iodine (Verified Allergy, Unknown, HIVES, 12/11/16) Past Udtnbuc-[id number]-Ttlfxo Hx Patient Social History Marrital Status: Employed/Student: retired ([place] mentally handic[employer] ) Alcohol Use: Denies Use Recreational Drug Use: No Smoking Status: Former Smoker Former smoker/When Quit: Mar 15, 1982 Type Used: Cigarettes Physical Abuse Screen: No Sexual Abuse: No Recent Foreign Travel: No Contact w/other who traveled: No Recent Hopitalizations: No Recent Infectious Disease Expo: No Immunizations Up To Date Date of Pneumonia Vaccine: Aug 17, 2013 Date of Influenza Vaccine: Sep 07, 2013 Seasonal Allergies Seasonal Allergies: No Surgeries HX Surgeries: Yes (CARDIAC CATH; RIGHT LUNG RESECTION/TUMOR REMOVAL) Surgeries: Cardiac (cardiac catheter 2012), Gallbladder, Hysterectomy, Lobectomy, Tonsillectomy Respiratory Hx Respiratory Disorders: Yes (+ 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. ) Cardiovascular Hx Cardiovascular Disorders: Yes (LBBB, LVH, chf) Cardiac Disorders: Atrial Fibrillation, Coronary Artery Disease, Hypertension Neurological Hx Neurological Disorders: No Reproductive System Hx Reproductive Disorders: No Sexually Transmitted Disease: No HIV/AIDS: No Genitourinary Hx Genitourinary Disorders: Yes Genitourinary Disorders: Bladder Infection Gastrointestinal Hx Gastrointestinal Disorders: Yes (HAD GALL BLADDER DISEASE - REMOVED A LONG TIME AGO) Gastrointestinal Disorders: Gall Bladder Disease Musculoskeletal Hx Musculoskeletal Disorders: No Endocrine Hx Endocrine Disorders: No HEENT HX ENT Disorders: Yes HEENT Disorders: Cataract Cancer Hx Cancer: Yes (LBBB, LVH, chf, diastolic heart failure) Cancer: Lung Psychosocial Hx Psychiatric Problems: Yes Behavioral Health Disorders: Anxiety, Bipolar, Depression Integumentary HX Skin/Integumentary Disorder: No Blood Transfusions Hx Blood Disorders: No Adverse Reaction to a Blood Tr: No Family Medical History Family Hx: Patient reports no known family medical history. Review of Systems Constitutional: see HPI EENTM: no symptoms reported Respiratory: no symptoms reported Cardiovascular: no symptoms reported Gastrointestinal: no symptoms reported Genitourinary: no symptoms reported Musculoskeletal: back pain Skin: no symptoms reported Psychiatric/Neurological: Numbness, Paresthesia, Tingling, Tremors, Weakness All Other Systems Reviewed Negative Unless Noted: Yes Physical Exam Physical Exam Vital Signs Vital Sign - Last 12Hours 03/06/17 03/06/17 03/06/17 21:35 21:45 22:03 Temp 99.3 Pulse 72 Resp 18 B/P (MAP) 150/79 Pulse Ox 99 O2 Delivery Nasal Cannula O2 Flow Rate 2.00 Capillary Refill : Less Than 3 Seconds General Appearance: No Apparent Distress, WD/WN, Chronically ill Eyes: Bilateral Eye Normal Inspection, Bilateral Eye PERRL HEENT: PERRL/EOMI, Normal ENT Inspection, Pharynx Normal Neck: Full Range of Motion, Normal Inspection, Non Tender, Supple, Carotid Bruit Respiratory: Chest Non Tender, No Accessory Muscle Use, No Respiratory Distress , Crackles, Decreased Breath Sounds Cardiovascular: No Edema, No Gallop, No JVD, No Murmur, Normal Peripheral Pulses, Irregularly Irregular Gastrointestinal: Normal Bowel Sounds, No Organomegaly, No Pulsatile Mass, Non Tender, Soft Back: Normal Inspection, No CVA Tenderness, No Vertebral Tenderness Extremity: Normal Capillary Refill, Normal Inspection, Normal Range of Motion, Non Tender, No Calf Tenderness, No Pedal Edema Neurologic/Psychiatric: Alert, Oriented x3, No Motor/Sensory Deficits, Normal Mood/Affect, Motor Weakness (slight weakness in right leg 4/5) Skin: Normal Color, Warm/Dry Lymphatic: No Adenopathy Results Results/Procedures Lab Laboratory Tests 03/06/17 22:00 03/07/17 04:55 Assessment/Plan Admission Diagnosis Assessment: Acute CVA with right leg paralysis now resolving but ataxia remains UTI Hyperkalemia now resolved Lung CA AF on Eliquis CHF with elevated BNP ARF Creat 1.46 now 1.0 Assessment and Plan Plan: Stop IV fluid due to volume overload tendency MRI of brain with and without IV contrast Check labs in AM Maintain telemetry Speech therapy Restart home meds Consult Dr. Rdz. Possible DC tomorrow Clinical Quality Measures DVT/VTE Risk/Contraindication: Risk Factor Score Per Nursin RFS Level Per Nursing on Admit: 4+=Very High ANITA VELASQUEZ DO Mar 07, 2017 10:41
[2017-03-07] MEDS ORDERED: FUROSEMIDE 20 MG (LASIX) TAB ONE (10:50)
[2017-03-07] MEDS: FUROSEMIDE 20 MG (LASIX) TAB PO SCH (10:53)
--- NOTE | 2017-03-07 10:57 | Physical Therapy Evaluation ---
PT Evaluation-General Medical Diagnosis Admission Date Mar 06, 2017 at 23:34 Medical Diagnosis: right LE ataxia/UTI Onset Date: Mar 06, 2017 Therapy Diagnosis Therapy Diagnosis: generalized weakness Height/Weight Height (Feet): 5 Height (Inches): 5.50 Weight (Pounds): 168 Weight (Ounces): 5.0 Precautions Precautions/Isolations: Standard Precautions Referral Physician: Rosa Reason for Referral: Evaluation/Treatment Medical History Pertinent Medical History: Atrial Fib, CAD, COPD, Heart Failure, HTN Additional Medical History lung cancer Current History to ER with COLEY, SOA, dizziness and right LE weakness/ataxia Reviewed History: Yes Social History Home: Apartment Current Living Status: Significant Other Entry Into Home: Level Entry Prior/Core FIM Prior Level of Function Functional [place] Measure 0=Not Assessed/NA 4=Minimal Assistance 1=Total Assistance 5=Supervision or Setup 2=Maximal Assistance 6=Modified [place] 3=Moderate Assistance 7=Complete [place] Bed Mobility: 7 Transfers (B,C,W/C) (FIM): 7 Gait: 7 PT Evaluation-Current Subjective Patient states, "I'm getting back to normal." Patient agrees to PT. Pain Numeric Pain Scale: 0-No Pain Location: No Pain Reported Objective Patient Orientation: Normal For Age Problem Solving: Good Attachments: IV ROM/Strength ROM Lower Extremities bilateral LE WFL Strenght Lower Extremities right knee flexion/extension 5/5; hip flexion 5/5; ankle dorsi/plantarflexion 5/ 5 left knee flexion/extension 5/5; hip flexion 5/5; ankle dorsi/plantarflexion 5/5 Integumentary/Posture Integumentary refer to nursing notes Bowel Incontinence: No Bladder Incontinence: No Posture WNL Neuromuscular (Tone, Coordination, Reflexes) diminished coordination with ambulation with episodes of LOB with self correction. Sensory Vision: Functional Hearing: Functional Sensation Right Lower Extremit: Intact Sensation Left Lower Extremity: Intact Transfers Functional [place] Measure 0=Not Assessed/NA 4=Minimal Assistance 1=Total Assistance 5=Supervision or Setup 2=Maximal Assistance 6=Modified [place] 3=Moderate Assistance 7=Complete [place] Transfers (B, C, W/C) (FIM): 6 Scootin Sit to/from Stand: 6 Gait Mode of Locomotion: Walk Anticipated Mode of Locomotion: Walk Gait (FIM): 5 Distance (FIM): 3=150 ft Distance: 275' Gait Level of Assist: 5 Gait Persons Needed: 1 Gait Assistive Device: FWW Comments/Gait Description Patient displays unsteady gait without FWW; with FWW improvement noted with safe and functional gait sequence Balance Sitting Static: Normal Sitting Dynamic: Normal Standing Static: Fair Standing Dynamic: Fair Assessment/Needs 76 y.o. female, will benefit from skilled PT to address functional mobility to improve current LOF. Patient displays increase in LOB and unsteady gait without AD. This PT recommends a FWW or 4WW upon dismissal from hospital to improve safety concerns. Rehab Potential: Good PT Short Term Goals Short Term Goals Time Frame: Mar 12, 2017 Transfers (B,C,W/C) (FIM): 6 Gait (FIM): 6 Distance (FIM): 3=150 ft Gait Level of Assist: 6 PT Plan Problem List Problem List: Balance Treatment/Plan Treatment Plan: Continue Plan of Care Treatment Plan: Education, Functional Activity Phil, Functional Strength, Gait , Safety, Therapeutic Exercise, Transfers Treatment Duration: Mar 12, 2017 # of days/week 5 Visits Per Week: 5 Pt/Family Agrees w/Plan: Yes Safety Risks/Education Patient Education: Gait Training, Safety Issues Teaching Recipient: Patient, Family Teaching Methods: Demonstration, Discussion Response to Teaching: Verbalize Understanding, Return Demonstration Discharge Recommendations Therapy D/C Recommendations: Home w/ Family Support Equpiment Recommendations-D/C: Front Wheeled Walker Time/GCodes Time In: 935 Time Out: 950 Total Billed Treatment Time: 15 Total Billed Treatment 1 visit EVLowC 15 min LYLE SUAZO PT Mar 07, 2017 10:56
--- NOTE | 2017-03-07 13:27 | ST Dysphagia Evaluation ---
Speech Evaluation-General Medical Diagnosis right LE ataxia/UTI Onset Date: Mar 06, 2017 Therapy Diagnosis Therapy Diagnosis: Oropharyngeal Swallow WFL Precautions Precautions/Isolations: Standard Precautions Referral Referring Physician: Dr. Anita Lee Reason for Referral: Evaluation/Treatment Clinical Bedside Swallowing Evaluation Medical History Pertinent Medical History: Atrial Fib, CAD, COPD, Heart Failure, HTN Lung CA Reviewed History: Yes Social History Current Living Status: Significant Other Speech PLF/Current-Dysphagia Prior Level of Function The patient reported intermittent difficulty swallowing large pills at home. Per patient, her vitamins appear to "stick" in her throat upon swallowing. The patient reports she is able to clear the lodged material with a subsequent swallow of thin liquid. The patient currently consumes a regular diet with thin liquids at home. Subjective The patient was recently admitted to [facility] with a diagnosis of right lower extremity ataxia, acute renal insufficiency, and an UTI. The patient and greeted the clinician appropriately upon entrance. The patient was agreeable to the dysphagia evaluation on this date. CXR: 03/06/17: Cardiomegaly. COPD changes. Stable parenchymal scarring or density in the right base. Cognitive Status Patient Orientation: Person, Place Oral Motor Skills Dentition: Natural Current Food Consistancy: Regular (Heart Healthy), Thin Liquids Ability to Follow Directions: Good Oral Expression Ability: Mild Impairment Voice Voice Phonatory-Based Quality: [place] Voice Pitch: Normal Voice Loudness: Normal Face Facial Symmetry: Symmetrical Oral-Facial Assessment Oral-Facial Dentition: Normal Labial Seal Description: Normal Smile: Normal Puff Cheeks: Normal Lingual Protrusion: Normal Lingual ROM: Normal Lingual Strength: Normal Pharynx Velopharyngeal Move.: Normal Volitional Dry Swallow: Yes Voluntary Cough: Yes Dysphagia Evaluation Consistencies Presented: Regular, Thin Liquid, Pureed - No oral phase impairments were noted during the assessment. - No pharyngeal stage impairments were noted throughout the evaluation. - No signs/symptoms of aspiration were demonstrated with multiple boluses of thin liquid (via teaspoon, cup sip, straw), puree, or solid consistencies tested. The patient's vocal quality remained clear throughout the evaluation. Dietary Recommendations: Regular Liquid Recommendations: Thin Swallowing Precautions: Small Bites and Sips, Sitting 90 Degrees 30 Post Intake 1. Crush large medication and place in puree for administration. Dysphagia Evaluation Summary The patient demonstrated an oropharyngeal swallow function grossly within normal limits. Speech-Plan Treatment Plan Speech Therapy Treatment Plan: Discontinue ST Evaluation, only. Rehab Potential: Good Safety Risks/Education Teaching Recipient: Patient, Significant Other Teaching Methods: Discussion Response to Teaching: Verbalize Understanding Education Topics Provided: Results, Recommendations, Plan of Care Time Speech Therapy Time In: 10:50 Speech Therapy Time Out: 11:10 Total Billed Time: 20 Billed Treatment Time 1, ZAY FLANAGAN Mar 07, 2017 13:27
--- NOTE | 2017-03-07 14:01 | Occupational Therapy Eval ---
OT Evaluation-General/PLF Medical Diagnosis Admission Date Mar 06, 2017 at 23:34 Medical Diagnosis: right LE ataxia/UTI Onset Date: Mar 06, 2017 Therapy Diagnosis Therapy Diagnosis: decreased self care Height/Weight Height (Feet): 5 Height (Inches): 5.50 Weight (Pounds): 168 Weight (Ounces): 5.0 Precautions Precautions/Isolations: Standard Precautions Safety Interventions: Bed Exit Alarm Referral Physician: Rosa Medical History Pertinent Medical History: Atrial Fib, CAD, COPD, Heart Failure, HTN Additional Medical History lung cancer, anxiety, depression Social History Home: Multilevel Current Living Status: Spouse Entry Into Home: Stairs With Railing Steps Into Home: 2 ADL-Prior Level of Function ADL PLOF Comments Pt reports being independent with basic self care and mobility DME/Equipment: Tub/Shower Drive Self: Yes OT Current Status Subjective Pt sitting in chair, agrees to treatment. Pt states she is feeling better today. Mental Status/Objective Patient Orientation: Person, Place, Situation Attachments: IV Current Glasses/Contacts: Yes Hand Dominance: Right Upper Extremity ROM Grossly WFL Upper Extremity Coordination Intact Upper Extremity Strength Grossly WFL ADL-Treatment ADL-Current Pt participated in UE assessment while seated in chair. Pt states she has already completed grooming tasks after set up. Pt states she requires assist to open some packages during meals, but then is able to feed herself. Pt demonstrated ability to doff/don sock and shoes with SBA. Pt performed sit to stand and transfers with SBA using FWW. Pt sitting in chair with needs met and spouse present after session. Functional [place] Measure 0=Not Assessed/NA 4=Minimal Assistance 1=Total Assistance 5=Supervision or Setup 2=Maximal Assistance 6=Modified [place] 3=Moderate Assistance 7=Complete IndependenceIRFPAI Quality Coding Scale 6 Independent with activity with or without an assistive device 5 Patient requires set up or clean up by helper. Patient completes activity by themselves 4 Supervision or touching assist (CGA). [place] provide cues , steadying assist 3 The helper provides less than half the effort to complete the activity 2 The helper provides more than half the effort to complete the activity 1 Dependent. The helper does all the effort to complete an activity 7 Patient refused to complete or attempt activity 9 The patient did not perform the activity before the current illness or injury 88 Not attempted due to Medical conditions or safety concerns Eating (FIM): 5 (by report) Grooming (FIM): 5 (by report) Lower Body Dressing (FIM): 5 (socks and shoes only) Education OT Patient Education: Rehab process Teaching Recipient: Patient Teaching Methods: Discussion Response to Teaching: Verbalize Understanding OT Short Term Goals Short Term Goals Transfers (B,C,W/C) (FIM): 6 1=Demonstrate adherence to instructed precautions during ADL tasks. 2=Patient will verbalize/demonstrate understanding of assistive devices/ modifications for ADL. 3=Patient will improve strength/tolerance for activity to enable patient to perform ADL's. OT Skilled Nursing Goals Skilled Nursing Goals Time Frame: Mar 14, 2017 Eating (FIM): 6 Grooming(FIM): 6 Upper Body Dressing(FIM): 6 Lower Body Dressing(FIM): 6 Toileting(FIM): 6 Toilet/Commode Transfer(FIM): 6 1=Demonstrate adherence to instructed precautions during ADL tasks. 2=Patient will verbalize/demonstrate understanding of assistive devices/ modifications for ADL. 3=Patient will improve strength/tolerance for activity to enable patient to perform ADL's. OT Education/Plan Problem List/Assessment Assessment: Dependent Transfers, Impaired Self-Care Skills Pt to benefit from skilled OT intervention for ADL training, transfers, strengthening, and home safety education to maximize level of function and allow safe return home. Discharge Recommendations Plan/Recommendations: Continue POC Treatment Plan/Plan of Care Treatment,Training & Education: Yes Patient would benefit from OT for education, treatment and training to promote independence in ADL's, mobility, safety and/or upper extremity function for ADL' s. Plan of Care: ADL Retraining, Functional Mobility, UE Funct Exercise/Act Treatment Duration: Mar 14, 2017 # of days/week 5 Visits Per Week: 5 Agreement: Yes Rehab Potential: Good Time/GCodes Start Time: 10:10 Stop Time: 10:30 Total Time Billed (hr/min): 20 Billed Treatment Time 1 visit, PARISA(20minutes) MIREYA GODOY OT Mar 07, 2017 14:01
[2017-03-07] MEDS ORDERED: GADOBUTROL 7.5 MMOL/7.5 ML (GADAVIST) VIAL IV ONE (15:00)
--- NOTE | 2017-03-07 17:31 | Diagnostic Imaging Report ---
PROCEDURE: MR imaging of the brain with and without contrast. TECHNIQUE: Multiplanar, multisequence MR imaging of the brain was performed with and without contrast. INDICATION: Headache, dizziness and nausea. History of lung cancer. 7 mL of Gadovist is administered intravenously. FINDINGS: There is no diffusion restriction to suggest an acute infarct or other diffusion abnormality. There are periventricular, deep and subcortical white matter T2 hyperintense signal abnormalities not associated with mass effect or postcontrast enhancement. These are compatible with chronic microvascular ischemic changes and are commonly seen at the patient's age. There is no hydrocephalus. The pituitary gland is normal in size. No hypothalamic or pineal region mass. Central vascular flow voids appear grossly unremarkable. The internal auditory canals and inner ear structures appear unremarkable. No hydrocephalus. No extra-axial fluid collection is seen. No enhancing mass. The orbits and the paranasal sinuses appear grossly unremarkable. IMPRESSION: No acute infarct or enhancing mass. Dictated by: Dictated on workstation # [id number]
[2017-03-07] MEDS: RT-ADVAIR HFA 115/21 MCG PER PUFF IH SCH (19:24)
[2017-03-07] MEDS: meTOprolol TARTRATE 50 MG (LOPRESSOR) TAB PO SCH (20:50)
[2017-03-07] MEDS: APIXABAN 5 MG (ELIQUIS) TABLET PO SCH (20:50)
[2017-03-07] MEDS: VALSARTAN 80 MG (DIOVAN) TAB PO SCH (20:50)
[2017-03-08 00:16] VITALS: BP 123/65
[2017-03-08 04:00] VITALS: BP 125/62
[2017-03-08 04:56] LABS: BASOPHILS % (AUTO) 0 % (0-10); EOSINOPHILS # (AUTO) 0.2 10^3/uL (0.0-0.3); EOSINOPHILS % (AUTO) 3 % (0-10); LYMPHOCYTES # (AUTO) 1.4 X 10^3 (1.0-4.0); LYMPHOCYTES % (AUTO) 19 % (12-44); MEAN CORPUSCULAR HEMOGLOBIN 29 PG (25-34); MEAN CORPUSCULAR HGB CONC 32 G/DL (32-36); MEAN CORPUSCULAR VOLUME 92 FL (80-99); MEAN PLATELET VOLUME 9.4 FL (7.4-10.4); MONOCYTES # (AUTO) 0.7 X 10^3 (0.0-1.0); MONOCYTES % (AUTO) 9 % (0-12); NEUTROPHILS # (AUTO) 5.1 X 10^3 (1.8-7.8); NEUTROPHILS % (AUTO) 69 % (42-75); PLATELET COUNT 282 10^3/uL (130-400); RED BLOOD COUNT 3.71 10^6/uL (4.35-5.85); RED CELL DISTRIBUTION WIDTH 13.6 % (10.0-14.5); WHITE BLOOD COUNT 7.3 10^3/uL (4.3-11.0)
[2017-03-08 05:12] LABS: ANION GAP 9 MMOL/L (5-14); BLOOD UREA NITROGEN 14 MG/DL (7-18); CARBON DIOXIDE 23 MMOL/L (21-32); CHLORIDE 107 MMOL/L (98-107); POTASSIUM 3.6 MMOL/L (3.6-5.0); SODIUM 139 MMOL/L (135-145)
[2017-03-08 05:13] LABS: ALANINE AMINOTRANSFERASE 14 U/L (0-55); ALBUMIN 3.4 G/DL (3.2-4.5); ASPARTATE AMINO TRANSFERASE 16 U/L (5-34); BILIRUBIN,TOTAL 0.6 MG/DL (0.1-1.0); BUN/CREATININE RATIO 16; CALCIUM 8.8 MG/DL (8.5-10.1); CHOLESTEROL 198 MG/DL (< 200); CREATININE SERUM 0.87 MG/DL (0.60-1.30); DIRECT LDL 119 MG/DL (1-129); GFR ESTIMATED > 60; GLUCOSE 94 MG/DL (70-105); TOTAL PROTEIN 6.3 G/DL (6.4-8.2); TRIGLYCERIDES 105 MG/DL (<150); VLDL CHOLESTEROL 21 MG/DL (5-40)
[2017-03-08] MEDS: RT-ADVAIR HFA 115/21 MCG PER PUFF IH SCH (06:59)
[2017-03-08] MEDS ORDERED: KCL 8 MEQ (MICRO K) TABLET PO SCH (07:00)
[2017-03-08 08:00] VITALS: BP 151/72
[2017-03-08] MEDS ORDERED: UMECLIDINIUM BROMIDE (INCRUSE ELLIPTA) 7'S IH SCH (08:00)
--- NOTE | 2017-03-08 08:45 | ECHOCARDIOGRAPHY REPORT ---
DATE OF SERVICE: 2D ECHOCARDIOGRAM DATE OF SERVICE: 03/07/2017 ATTENDING PHYSICIAN: Dr. Anita Lee. ORDERING PHYSICIAN: Dr. Roc Rdz. DIAGNOSIS: Possible cerebrovascular accident. FINDINGS: 1. Sinus rhythm. 2. Left atrial dimensions are enlarged. Left atrial diameter is 5.4 cm. 3. Aortic root dimensions are normal. 4. Left ventricular systolic function is normal. Left ventricular ejection fraction is 60%. Mild concentric LVH is present with diastolic interventricular septal diameter 1.2 cm. 5. Normal wall motions. 6. Right heart size and function is normal. 7. Complete diastolic evaluation was not performed. 8. IVC is dilated with a diameter of 2.7 cm which may suggest increased right atrial pressure. VALVULAR STRUCTURES OF THE HEART There is mild tricuspid regurgitation with RVSP of 55 mmHg. There is at least moderate mitral regurgitation with peak velocity of 4.92 meters per second. There is no significant aortic or pulmonary valve pathology. Bubble study was performed which was negative. Contrast was also given which did not show any LV thrombus. CONCLUSION: 1. Left ventricular size and function is normal. 2. Left ventricular function is 60%. 3. Mild concentric left ventricular hypertrophy with left atrial enlargement. 4. There is moderate to severe pulmonary hypertension with RVSP of 55 mmHg. 5. There is at least moderate mitral regurgitation with velocity of 4.92 meters per second. The severity of mitral regurgitation may be underestimated. 6. There is right atrial enlargement as well. 7. Bubble study was negative, contrast echocardiogram showed no left ventricular thrombus. 8. Transthoracic echocardiogram has moderate sensitivity and specificity to rule out cardiac etiology of possible stroke. Transesophageal echocardiogram is recommended if there is no other source of the stroke. Job ID: [id number] DocumentID: [id number] Dictated Date: 03/07/2017 16:24:28 [employer] Date: 03/07/2017 17:16:47 Dictated By: WIN RDZ MD
[2017-03-08] MEDS ORDERED: CIPROFLOXACIN 500 MG (CIPRO) TABLET PO SCH (09:00)
[2017-03-08] MEDS ORDERED: DILTIAZEM 240 MG (CARDIZEM CD) CAP PO SCH (09:00)
[2017-03-08] MEDS ORDERED: ASPIRIN E.C. 325 MG (ECOTRIN) TABLET PO SCH (09:00)
[2017-03-08] MEDS: VALSARTAN 80 MG (DIOVAN) TAB PO SCH (09:09)
[2017-03-08] MEDS: APIXABAN 5 MG (ELIQUIS) TABLET PO SCH (09:10)
[2017-03-08] MEDS: meTOprolol TARTRATE 50 MG (LOPRESSOR) TAB PO SCH (09:10)
[2017-03-08] MEDS: FUROSEMIDE 20 MG (LASIX) TAB PO SCH (09:10)
--- NOTE | 2017-03-08 09:53 | Discharge Instructions ---
Discharge Instructions Discharge Medications New, Converted or Re-Newed RX: Other (no new meds) Continued Medications: Albuterol Sulfate (Ventolin Hfa) 18 Gm Hfa.aer.ad 2 PUFF INH Q4H PRN for SHORTNESS OF BREATH, INHALER Apixaban (Eliquis) 5 Mg Tablet 5 MG PO BID, TAB LAST FILLED #60 01-20-17 Aspirin (Aspirin EC) 325 Mg Tablet.dr 325 MG PO DAILY, TAB Budesonide/Formoterol Fumarate (Symbicort 160-4.5 Mcg Inhaler) 10.2 Gm Hfa.aer.ad 2 PUFF INH BID, INHALER Diltiazem HCl (Cartia Xt) 240 Mg Cap.er.24h 240 MG PO DAILY, CAP Furosemide (Furosemide) 20 Mg Tablet 20 MG PO DAILY, TAB LAST FILLED #60 01-06-17 Hydrocodone/Acetaminophen (Hydrocodon -Acetaminophen 5-325) 1 Each Tablet 1 TAB PO DAILY PRN for PAIN-SEVERE, TAB Metoprolol Tartrate (Metoprolol Tartrate) 100 Mg Tablet 100 MG PO BID, TAB Potassium Chloride (Potassium Chloride) 8 Meq Tablet.er 8 MEQ PO DAILY, TAB Tiotropium [place] (Spiriva Respimat) 4 Gm Mist.inhal 2 PUFF IH DAILY, INH Valsartan (Valsartan) 80 Mg Tablet 80 MG PO BID, TAB LAST FILLED #60 01-13-17 Patient Instructions Goal/Follow Up Appt: Obtain appointment with Dr. Donato in 1 week Activity & Diet Discharge Diet: Cardiac Diet Activity as Tolerated: Yes MARIA GUADALUPE VELASQUEZ DO Mar 08, 2017 09:53
--- NOTE | 2017-03-08 09:55 | Discharge Summary-Hospitalist ---
Diagnosis/Chief Complaint Date of Admission Mar 06, 2017 at 23:34 Date of Discharge Discharge Date: Mar 08, 2017 Admission Diagnosis Assessment: Acute CVA with right leg paralysis now resolving but ataxia remains UTI Hyperkalemia now resolved Lung CA AF on Eliquis CHF with elevated BNP ARF Creat 1.46 now 1.0 Discharge Diagnosis Assessment: TIA versus migraine headache w/right leg paresis now resolved with normal MRI UTI Hyperkalemia now resolved Lung CA AF on Eliquis CHF with elevated BNP ARF Creat 1.46 now 1.0 Plan: Stop IV fluid due to volume overload tendency MRI of brain with and without IV contrast Check labs in AM Maintain telemetry Speech therapy Restart home meds Consult Dr. Rdz. Possible DC tomorrow Reason Hospital Visit/Course CC: Ataxia with UTI HPI: This is a 76[address]WF pt of Dr. Donato that presents to ER with dizziness and COLEY with right sided leg weakness. She has AF and on Eliquis and was not a TPA candidate. 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 Pt sees Dr. Cruz regularly for AF. Pt confirms hx of lung CA but states that radiology was effective in resolving CA. Pt is previous smoker. Pt confirms that Dr. Donato is PCP. Pt uses [facility]. Pt states that she vomited last night, and she still has some nausea and a minor COLEY. Pt also feels slightly dizzy. Pt congested. Pt denies hx of migraines. Physical exam stable. 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 Pt lives with at home. Pt received walker from PT, but does not have a walker at home. Pt does not have pacemaker or any metal in body. Pt previously had MRIs during CA treatment. Dr. Velasquez discusses obtaining MRI of brain, and pt is agreeable with this. Pt has not yet seen Dr. Rdz today. Scribed by Aleksander Rivas under the direct supervision of Dr. Velasquez. Note from 03/08/17: Patient doing well and has had complete resolution of the leg weakness and able to walk without difficulty and does not even require a walker. I updated her on the results bit her episode could've been due to a TIA versus a migraine headache since she had presented with headache and dizziness and nausea but unclear exactly what the episode was from considering MRI was negative for any type of stroke and the fact that she has complete resolution of symptoms I am labeling this is a TIA versus a migraine variant. She is been maintained on anticoagulation and aspirin therapy per cardiology so she is been optimized to try to prevent any additional neurological deficits issue of a close follow-up with Dr. Donato for further evaluation. Discharge Summary Discharge Physical Examination Allergies: Coded Allergies: Penicillins (Unverified Allergy, Mild, RASH, 09/24/10) RUPAL Inhibitors (Verified Allergy, Unknown, HIVES, 12/11/16) atorvastatin (Verified Allergy, Unknown, HIVES, 12/11/16) iodine (Verified Allergy, Unknown, HIVES, 12/11/16) Vitals & I&Os Vital Signs Date Time Temp Pulse Resp B/P (MAP) Pulse Ox O2 Delivery O2 Flow Rate FiO2 03/08/17 09:09 69 03/08/17 08:00 97.0 20 151/72 97 Nasal Cannula 2.00 Hospital Course Labs (last 24 hrs) Laboratory Tests 03/08/17 04:40: White Blood Count 7.3, Red Blood Count 3.71L, Hemoglobin 10.8L, Hematocrit 34L, Mean Corpuscular Volume 92, Mean Corpuscular Hemoglobin 29, Mean Corpuscular Hemoglobin Concent 32, Red Cell Distribution Width 13.6, Platelet Count 282, Mean Platelet Volume 9.4, Neutrophils (%) (Auto) 69, Lymphocytes (%) (Auto) 19, Monocytes (%) (Auto) 9, Eosinophils (%) (Auto) 3, Basophils (%) (Auto) 0, Neutrophils # (Auto) 5.1, Lymphocytes # (Auto) 1.4, Monocytes # (Auto) 0.7, Eosinophils # (Auto) 0.2, Basophils # (Auto) 0.0, Sodium Level 139, Potassium Level 3.6, Chloride Level 107, Carbon Dioxide Level 23, Anion Gap 9, Blood Urea Nitrogen 14, Creatinine 0.87, Estimat Glomerular Filtration Rate > 60, BUN/ Creatinine Ratio 16, Glucose Level 94, Calcium Level 8.8, Total Bilirubin 0.6, Aspartate Amino Transf (AST/SGOT) 16, Alanine Aminotransferase (ALT/SGPT) 14, Alkaline Phosphatase 91, Total Protein 6.3L, Albumin 3.4, Triglycerides Level 105, Cholesterol Level 198, LDL Cholesterol Direct 119, VLDL Cholesterol 21, HDL Cholesterol 53 Microbiology 03/06/17 Urine Culture - Preliminary, Resulted NO GROWTH Pending Labs Laboratory Tests 03/08/17 04:40: White Blood Count 7.3, Red Blood Count 3.71, Hemoglobin 10.8, Hematocrit 34, Mean Corpuscular Volume 92, Mean Corpuscular Hemoglobin 29, Mean Corpuscular Hemoglobin Concent 32, Red Cell Distribution Width 13.6, Platelet Count 282, Mean Platelet Volume 9.4, Neutrophils (%) (Auto) 69, Lymphocytes (%) (Auto) 19, Monocytes (%) (Auto) 9, Eosinophils (%) (Auto) 3, Basophils (%) (Auto) 0, Neutrophils # (Auto) 5.1, Lymphocytes # (Auto) 1.4, Monocytes # (Auto) 0.7, Eosinophils # (Auto) 0.2, Basophils # (Auto) 0.0, Sodium Level 139, Potassium Level 3.6, Chloride Level 107, Carbon Dioxide Level 23, Anion Gap 9, Blood Urea Nitrogen 14, Creatinine 0.87, Estimat Glomerular Filtration Rate > 60, BUN/ Creatinine Ratio 16, Glucose Level 94, Calcium Level 8.8, Total Bilirubin 0.6, Aspartate Amino Transf (AST/SGOT) 16, Alanine Aminotransferase (ALT/SGPT) 14, Alkaline Phosphatase 91, Total Protein 6.3, Albumin 3.4, Triglycerides Level 105 , Cholesterol Level 198, LDL Cholesterol Direct 119, VLDL Cholesterol 21, HDL Cholesterol 53 Discharge Home Medications: Active Scripts Active Reported Valsartan 80 Mg Tablet 80 Mg PO BID LAST FILLED #60 01-13-17 Aspirin EC (Aspirin) 325 Mg Tablet.dr 325 Mg PO DAILY Spiriva Respimat (Tiotropium [place]) 4 Gm Mist.inhal 2 Puff IH DAILY Symbicort 160-4.5 Mcg Inhaler (Budesonide/Formoterol Fumarate) 10.2 Gm Hfa.aer.ad 2 Puff INH BID Furosemide 20 Mg Tablet 20 Mg PO DAILY LAST FILLED #60 01-06-17 Ventolin Hfa (Albuterol Sulfate) 18 Gm Hfa.aer.ad 2 Puff INH Q4H PRN Hydrocodon -Acetaminophen 5-325 (Hydrocodone/Acetaminophen) 1 Each Tablet 1 Tab PO DAILY PRN Potassium Chloride 8 Meq Tablet.er 8 Meq PO DAILY Metoprolol Tartrate 100 Mg Tablet 100 Mg PO BID Cartia Xt (Diltiazem HCl) 240 Mg Cap.er.24h 240 Mg PO DAILY Eliquis (Apixaban) 5 Mg Tablet 5 Mg PO BID LAST FILLED #60 2-26-17 Instructions to patient/family Please see electonic discharge instructions given to patient. Clinical Quality Measures DVT/VTE Risk/Contraindication: Risk Factor Score Per Nursin RFS Level Per Nursing on Admit: 4+=Very High MARIA GUADALUPE VELASQUEZ DO Mar 08, 2017 09:55
--- NOTE | 2017-03-08 11:24 | Physical Therapy Daily Note ---
PT Daily Note-Current Subjective Patient agrees to therapy and states she is going home on this date. Pain Numeric Pain Scale: 0-No Pain Location: No Pain Reported Mental Status Patient Orientation: Normal For Age Transfers Functional [place] Measure 0=Not Assessed/NA 4=Minimal Assistance 1=Total Assistance 5=Supervision or Setup 2=Maximal Assistance 6=Modified [place] 3=Moderate Assistance 7=Complete IndependenceIRFPAI Quality Coding Scale 6 Independent with activity with or without an assistive device 5 Patient requires set up or clean up by helper. Patient completes activity by themselves 4 Supervision or touching assist (CGA). [place] provide cues , steadying assist 3 The helper provides less than half the effort to complete the activity 2 The helper provides more than half the effort to complete the activity 1 Dependent. The helper does all the effort to complete an activity 7 Patient refused to complete or attempt activity 9 The patient did not perform the activity before the current illness or injury 88 Not attempted due to Medical conditions or safety concerns Transfers (B, C, W/C) (FIM): 7 Scootin Rollin Supine to/from Sit: 7 Sit to/from Stand: 7 Gait Training Gait (FIM): 7 Distance (FIM): 3=150 ft Distance: 500' Gait Level of Assist: 7 Gait Assistive Device: None Good balance and functional gait sequence. Assessment Patient is currently at independent LOF and will dismiss to home on this date with goals met. PT Short Term Goals Short Term Goals Time Frame: Mar 12, 2017 Transfers (B,C,W/C) (FIM): 6 Gait (FIM): 6 Distance (FIM): 3=150 ft Gait Level of Assist: 6 PT Plan Treatment/Plan Treatment Plan: Discontinue PT, goals met Treatment Plan: Education, Functional Activity Phil, Functional Strength, Gait , Safety, Therapeutic Exercise, Transfers Treatment Duration: Mar 12, 2017 Visits Per Week: 5 Time/GCodes Time In: 1040 Time Out: 1050 Total Billed Treatment Time: 10 Total Billed Treatment 1 visit FA 10 min LYLE SUAZO PT Mar 08, 2017 11:24
--- NOTE | 2017-03-08 12:41 | Cardiology Progress Note ---
Cardiology SOAP Progress Note Subjective: no cardiac complaints Objective: I&O/Vital Signs Vital Sign - Last 12Hours 03/08/17 03/08/17 03/08/17 03/08/17 01:21 04:00 07:00 07:05 Temp 96.7 Pulse 76 85 Resp 16 B/P (MAP) 125/62 Pulse Ox 96 95 95 O2 Delivery Nasal Cannula O2 Flow Rate 2.00 03/08/17 03/08/17 03/08/17 07:07 08:00 09:09 Temp 97.0 Pulse 93 55 69 Resp 20 B/P (MAP) 151/72 Pulse Ox 97 O2 Delivery Nasal Cannula O2 Flow Rate 2.00 Intake and Output 03/08/17 00:00 Intake Total 2560 ml Output Total 2400 ml Balance 160 ml Weight (Pounds): 168 Weight (Ounces): 2.0 Weight (Calculated Kilograms): [id number] Constitutional: No appears stated age, No AAO x 3, No apparent distress, No PERRL, No well-developed, No well-nourished, No other Respiratory: No accessory muscle use, No respiratory distress, No chest tender , No chest expansion is symmetric, No chest is bilaterally symmetric, No lungs clear to percussion, No lungs clear to auscultation, No crackles, No rhonchi, No rales, No stridor, No wheezing, No pleural rub, No other Cardiovascular: No regular rate-rhythm, No irregularly irregular, No extra beats, No parasternal heave is noted, No JVD, No edema, No bradycardia, No tachycardia, No point of maximal impulse, No cardiac thrills are palpable, No S1 and S2, No gallop/S3, No gallop/S4, No diastolic murmur, No systolic murmur, No friction rub, No click, No other Gastrointestional: No tender, No soft, No round, No distended, No pulsatile mass, No organomegaly, No guarding, No rebound, No tenderness, No hernia, No mass, No audible bowel sounds, No abnormal bowel sounds, No abdominal bruits, No spleenomegaly, No other Extremities: No normal range of motion, No non-tender, No normal inspection, No pedal edema, No calf tenderness, No normal capillary refill, No pelvis stable , No calf tenderness, No inflammation, No pedal edema, No slow capillary refill , No swelling, No other, No abrasion, No clubbing, No cyanosis, No ecchymosis, No laceration, No no lower extremity edema bilateral, No significant edema, No tenderness, No wound Neurologic/Psychiatric: alert, normal mood/affect, oriented x 3 Skin: No normal color, No warm/dry, No cyanosis, No cool, No diaphoresis, No damp, No ecchymosis, No jaundice, No mottled, No pallor, No rash, No tattoos/ piercings, No ulcerations, No rash on exposed areas, No ulcerations on exposed areas, No other Results/Procedures: Labs Laboratory Tests 03/08/17 04:40: White Blood Count 7.3, Red Blood Count 3.71L, Hemoglobin 10.8L, Hematocrit 34L, Mean Corpuscular Volume 92, Mean Corpuscular Hemoglobin 29, Mean Corpuscular Hemoglobin Concent 32, Red Cell Distribution Width 13.6, Platelet Count 282, Mean Platelet Volume 9.4, Neutrophils (%) (Auto) 69, Lymphocytes (%) (Auto) 19, Monocytes (%) (Auto) 9, Eosinophils (%) (Auto) 3, Basophils (%) (Auto) 0, Neutrophils # (Auto) 5.1, Lymphocytes # (Auto) 1.4, Monocytes # (Auto) 0.7, Eosinophils # (Auto) 0.2, Basophils # (Auto) 0.0, Sodium Level 139, Potassium Level 3.6, Chloride Level 107, Carbon Dioxide Level 23, Anion Gap 9, Blood Urea Nitrogen 14, Creatinine 0.87, Estimat Glomerular Filtration Rate > 60, BUN/ Creatinine Ratio 16, Glucose Level 94, Calcium Level 8.8, Total Bilirubin 0.6, Aspartate Amino Transf (AST/SGOT) 16, Alanine Aminotransferase (ALT/SGPT) 14, Alkaline Phosphatase 91, Total Protein 6.3L, Albumin 3.4, Triglycerides Level 105, Cholesterol Level 198, LDL Cholesterol Direct 119, VLDL Cholesterol 21, HDL Cholesterol 53 Microbiology 03/06/17 Urine Culture - Final, Complete A/P: Assessment/Dx: Acute stroke - unclear source. History of Acute CHF, diastolic (per echocardiogram of 07-09-16, LVEF 65%) - clinically compensated Normal left ventricular size and systolic function. Estimated ejection fraction 65%. Diastolic dysfunction is suggested by Doppler. 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 Aortic valve sclerosis. No aortic stenosis. Estimated pulmonary artery pressure of 10 mmHg. Per echocardiogram of June by Dr. Kim Coronary artery disease, moderate in the left coronary system and moderate to moderately severe in the right coronary system on cardiac catheterization of . MPI of 01/17/16 did not show any significant ischemia and LVEF was 64%. 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 The patient is following with Dr Bradford of the Oncology services at [facility] History of hyperlipidemia being treated with statin therapy. Left bundle branch block. No evidence of any significant valvular heart disease on echocardiography of July 2013 Paroxysmal A. Fib, s/p elec cardioversion to sinus rhythm on09/06/13. Documented again on a visit of 05/20/14. Holter of 05/26/14 showed NSR with PACs and PVCs and episodes of PAF with ventricular rates upto 110 bpm and average vent rate 84 bpm. There was no VT or siginificant bradycardia. Presentation to ER on 03/02/15 with A fib/flutter with RVR, improved after addition of long- acting dilt to regimen Apixaban therapy for stroke prophylaxis Plan: Patient with history of diastolic congestive heart failure, atrial fibrillation who presents with acute stroke with significant residual neurological deficit at this point in time. She has been on Eliquis for stroke prophylaxis. It is therefore unlikely that atrial fibrillation is the reason for her stroke. Other causes need to be evaluated. We repeated an echocardiogram with bubble study as well as contrast imaging. There was no evidence of intracardiac shunting. Contrast echocardiogram also did not reveal any LV clot. We'll recommend continuing current medical therapy which includes Eliquis. she can be discharged to follow-up with Dr. Cruz as an outpatient. Thank you for your consultation. Please call me if you have any questions. Roc Rdz MD, FACP, FACC, FSCAI, FHRS, CCDS Interventional Cardiology Cardiac Electrophysiology Vascular Medicine and Endovascular Interventions Barber RDZ MD Mar 08, 2017 12:41 pm
== END 2017-03-08 13:15 | disposition home or self-care (01) | DRG 69 ==
LOC: EDUNIT# 21:33 → ER 21:35 → 4TH 23:34
PROVIDERS: ADMIT Internal Medicine; ATTEND Internal Medicine
DX: G45.9 Transient cerebral ischemic attack, unspecified (principal); G43.909 Migraine, unspecified, not intractable, without status migrainosus; G81.91 Hemiplegia, unspecified affecting right dominant side; N39.0 Urinary tract infection, site not specified; I11.0 Hypertensive heart disease with heart failure; I50.31 Acute diastolic (congestive) heart failure; N17.9 Acute kidney failure, unspecified; I48.92 Unspecified atrial flutter; R47.1 Dysarthria and anarthria; R27.0 Ataxia, unspecified; I48.91 Unspecified atrial fibrillation; R29.702 NIHSS score 2; J44.9 Chronic obstructive pulmonary disease, unspecified; I25.10 Atherosclerotic heart disease of native coronary artery without angina pectoris; N28.9 Disorder of kidney and ureter, unspecified; E87.5 Hyperkalemia; F41.9 Anxiety disorder, unspecified; F31.9 Bipolar disorder, unspecified; Z85.118 Personal history of other malignant neoplasm of bronchus and lung; Z90.2 Acquired absence of lung [part of]; Z79.01 Long term (current) use of anticoagulants; Z87.891 Personal history of nicotine dependence
CPT/HCPCS: 36415; 70450; 70553; 71010; 80048; 80053; 80061; 81000; 82962; 83735; 83880; 84484; 85025; 85379; 85610; 85730; 87088; 93005; 93041; 94640; 94664; 94760; 96365

== ENCOUNTER 2017-03-27 23:29 | Emergency (ER) | payer MEDICARE, MEDICAID ==
[~2017-03-27] VITALS: Ht 167.6 cm; Wt 67.1 kg
[~2017-03-27 23:29] MED LIST changes: +ASPI325T32 PO; +BUDE10.2 INH; +TIOT4MIS2 IH
--- NOTE | 2017-03-28 00:10 | ED General ---
General Chief Complaint: Glucose Problems Stated Complaint: HIGH BLOOD PRESSURE Nursing Triage Note: PT TO ED 7 W/ C/O ELEVATED BP ONSET THIS AM, WORSE TONIGHT. DOES REPORT TAKING HER MEDS BUT DENIES IMPROVEMENT Nursing Sepsis Screen: No Definite Risk Source of Information: Patient (VERY VAGUE AND DIFFICULT AND LIMITED HISTORIAN) History of Present Illness Time Seen by Provider: 23:50 Initial Comments PT ARRIVES VIA POV FROM HOME C/O ELEVATED BP STATES SHE CHECKS HER BP EVERY DAY STATES THIS AM, AND THINKS IT WAS AROUND 170 SYSTOLIC-"LESS THAN 200", AND DOES NOT KNOWN WHAT DIASTOLIC READING WAS BUT THINKS IT WAS "LESS THAN 100" , THEN TOOK HER REGULAR MEDICATIONS THIS AM USUAL STATES SHE CHECKED HER BP 20 MINUTES AGO "TO SEE IF IT HAD COME DOWN" AND > 200 SYSTOLIC / > 100 DIASTOLIC--PT UNABLE TO GIVE MORE EXACT READINGS PT STATES SHE HAS NOT HAD ANY OF HER MEDICATIONS OR DOSES CHANGED RECENTLY PT STATES SHE HAS BEEN A LITTLE SHORT OF BREATH, AND "MAYBE" FEELS A LITTLE PRESSURE IN HER CHEST, AND HAS BEEN DIZZY--"MAYBE WHEN I WALK" NO HEADACHE NO VISION CHANGES NO PARESTHESIAS OR MOTOR DEFICITS NO NAUSEA/VOMITING NO SWELLING IN LEGS/ FEET OR PAIN IN CALVES PT STATES SHE HAD LUNG CANCER, HAD RIGHT LUNG RESECTION, THEN HAD A RECURRENCE AND TREATED WITH RADIATION, WHICH SHE COMPLETED EARLIER THIS YEAR PT HAS HAD MULTIPLE ER VISITS FOR THIS SAME COMPLAINT OF ELEVATED BP PT ADMITTED 03/06-03/08 FOR POSSIBLE TIA HAD RIGHT LEG PARALYSIS/ATAXIA-THOSE SYMPTOMS HAVE RESOLVED PT DENIES FEELING ANXIOUS, BUT APPEARS TO BE VERY ANXIOUS. PT STATES SHE SAW DR. ALMARAZ AT [facility], EARLIER TODAY--FOR SECOND VISIT. PT DENIES SHE HAS ANY MENTAL HEALTH PROBLEMS, AND DOES NOT KNOW WHY SHE WAS REFERRED THERE STATES > 10 YEARS AGO A DX HER WITH BIPOLAR, BUT PT STATES SHE WAS HAVING DOMESTIC PROBLEMS WITH HER SPOUSE AT THAT TIME AND THAT IS WHY THEY DX HER WITH BEING BIPOLAR. 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 OLIVO Allergies and Home Medications Allergies Coded Allergies: Penicillins (Unverified Allergy, Mild, RASH, 09/24/10) RUPAL Inhibitors (Verified Allergy, Unknown, HIVES, 12/11/16) atorvastatin (Verified Allergy, Unknown, HIVES, 12/11/16) iodine (Verified Allergy, Unknown, HIVES, 12/11/16) Home Medications Albuterol Sulfate 18 Gm Hfa.aer.ad, 2 PUFF INH Q4H PRN for SHORTNESS OF BREATH, (Reported) Apixaban 5 Mg Tablet, 5 MG PO BID, (Reported) LAST FILLED #60 01-20-17 Aspirin 325 Mg Tablet.dr, 325 MG PO DAILY, (Reported) Budesonide/Formoterol Fumarate 10.2 Gm Hfa.aer.ad, 2 PUFF INH BID, (Reported) Diltiazem HCl 240 Mg Cap.er.24h, 240 MG PO DAILY, (Reported) Furosemide 20 Mg Tablet, 20 MG PO DAILY, (Reported) LAST FILLED #60 01-06-17 Hydrocodone/Acetaminophen 1 Each Tablet, 1 TAB PO DAILY PRN for PAIN-SEVERE, ( Reported) Metoprolol Tartrate 100 Mg Tablet, 100 MG PO BID, (Reported) Potassium Chloride 8 Meq Tablet.er, 8 MEQ PO DAILY, (Reported) Tiotropium [employer] 4 Gm Mist.inhal, 2 PUFF IH DAILY, (Reported) Valsartan 80 Mg Tablet, 80 MG PO BID, (Reported) LAST FILLED #60 01-13-17 Constitutional: dizziness EENTM: no symptoms reported Respiratory: see HPI, dyspnea on exertion Cardiovascular: see HPI, chest pain, No edema, No palpitations, No syncope Gastrointestinal: no symptoms reported Genitourinary: no symptoms reported Musculoskeletal: no symptoms reported Skin: no symptoms reported Psychiatric/Neurological: Anxiety, Denies Headache, Denies Numbness, Denies Paresthesia, Denies Weakness Hematologic/Lymphatic: No Symptoms Reported Immunological/Allergic: no symptoms reported Past Otddglf-Rpoprl-Grdync Hx Patient Social History Alcohol Use: Denies Use Recreational Drug Use: No Smoking Status: Former Smoker Type Used: Cigarettes Former Smoker/When Quit: Mar 15, 1982 Recent Foreign Travel: No Contact w/Someone Who Travel: No Recent Infectious Disease Expo: No Recent Hopitalizations: No Immunizations Up To Date Date of Pneumonia Vaccine: Aug 17, 2013 Date of Influenza Vaccine: Sep 07, 2013 Seasonal Allergies Seasonal Allergies: No Surgeries HX Surgeries: Yes (CARDIAC CATH; RIGHT LUNG RESECTION/TUMOR REMOVAL) Surgeries: Cardiac, Gallbladder, Hysterectomy, Lobectomy, Tonsillectomy Respiratory Hx Respiratory Disorders: Yes (+ 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. 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 Genitourinary Hx Genitourinary Disorders: Yes Genitourinary Disorders: Bladder Infection Gastrointestinal Hx Gastrointestinal Disorders: Yes (S/P SOCORRO) Gastrointestinal Disorders: Gall Bladder Disease Musculoskeletal Hx Musculoskeletal Disorders: No Endocrine Hx Endocrine Disorders: No HEENT HX ENT Disorders: Yes HEENT Disorders: Cataract Cancer Hx Cancer: Yes (LUNG CA--S/P RIGHT LUNG RESECTION, LATER RECURRENCE AND COMPLETED RADIATION TREATMENTS EARLY 2016) Cancer: Lung Psychosocial Hx Psychiatric Problems: Yes Behavioral Health Disorders: Anxiety, Bipolar, Depression Integumentary HX Skin/Integumentary Disorder: No Blood Transfusions Hx Blood Disorders: No Adverse Reaction to a Blood Tr: No Family Medical History Family Medial History: Patient reports no known family medical history. Physical Exam Vital Signs Vital Sign - Last 12Hours 03/27/17 23:45 Temp 98.6 Pulse 67 Resp 20 B/P (MAP) 234/119 Pulse Ox 99 O2 Delivery Room Air Capillary Refill : Less Than 3 Seconds General Appearance: No Apparent Distress, WD/WN, Anxious (VERY ANXIOUS, WITH CONSTANT MOVEMENTS OF HANDS AND FEET AND ALSO FACIAL MUSCLES OF EYEBROWS AND MOUTH), Other (TALKS NON-STOP AT LENGTH. ) Neck: Full Range of Motion, Normal Inspection, Non Tender, Supple, No Carotid Bruit, No JVD Respiratory: Normal Breath Sounds, No Accessory Muscle Use, No Respiratory Distress Cardiovascular: Regular Rate, Rhythm, No Edema, No JVD, No Murmur, Normal Peripheral Pulses Gastrointestinal: Normal Bowel Sounds, No Organomegaly, No Pulsatile Mass, Non Tender, Soft Back: No CVA Tenderness Extremity: Normal Capillary Refill, Normal Inspection, Normal Range of Motion, Non Tender, No Calf Tenderness, No Pedal Edema Neurologic/Psychiatric: Alert, Oriented x3, No Motor/Sensory Deficits, yarn man II- XII Norm as Tested, Other (ANXIOUS) Skin: Normal Color, Warm/Dry Progress/Results/Core Measures Results/Orders Lab Results Laboratory Tests Test 03/28/17 00:30 Range/Units White Blood Count 4.5 4.3-11.0 10^3/uL Red Blood Count 3.95 L 4.35-5.85 10^6/uL Hemoglobin 11.8 11.5-16.0 G/DL Hematocrit 36 35-52 % Mean Corpuscular Volume 90 80-99 FL Mean Corpuscular Hemoglobin 30 25-34 PG Mean Corpuscular Hemoglobin Concent 33 32-36 G/DL Red Cell Distribution Width 13.5 10.0-14.5 % Platelet Count 266 130-400 10^3/uL Mean Platelet Volume 9.6 7.4-10.4 FL Neutrophils (%) (Auto) 62 42-75 % Lymphocytes (%) (Auto) 24 12-44 % Monocytes (%) (Auto) 10 0-12 % Eosinophils (%) (Auto) 5 0-10 % Basophils (%) (Auto) 0 0-10 % Neutrophils # (Auto) 2.8 1.8-7.8 X 10^3 Lymphocytes # (Auto) 1.1 1.0-4.0 X 10^3 Monocytes # (Auto) 0.4 0.0-1.0 X 10^3 Eosinophils # (Auto) 0.2 0.0-0.3 10^3/uL Basophils # (Auto) 0.0 0.0-0.1 10^3/uL Prothrombin Time 13.6 12.2-14.7 SEC INR Comment 1.1 0.8-1.4 Activated Partial Thromboplast Time 32 24-35 SEC Sodium Level 140 135-145 MMOL/L Potassium Level 4.0 3.6-5.0 MMOL/L Chloride Level 105 98-107 MMOL/L Carbon Dioxide Level 25 21-32 MMOL/L Anion Gap 10 5-14 MMOL/L Blood Urea Nitrogen 18 7-18 MG/DL Creatinine 0.84 0.60-1.30 MG/DL Estimat Glomerular Filtration Rate > 60 BUN/Creatinine Ratio 21 Glucose Level 118 H 70-105 MG/DL Calcium Level 9.5 8.5-10.1 MG/DL Magnesium Level 1.8 1.8-2.4 MG/DL Total Bilirubin 0.4 0.1-1.0 MG/DL Aspartate Amino Transf (AST/SGOT) 22 5-34 U/L Alanine Aminotransferase (ALT/SGPT) 11 0-55 U/L Alkaline Phosphatase 94 40-136 U/L Troponin I < 0.30 <0.30 NG/ML B-Type Natriuretic Peptide 534.0 H <100.0 PG/ML Total Protein 7.3 6.4-8.2 G/DL Albumin 4.0 3.2-4.5 G/DL Free Thyroxine 1.10 0.70-1.48 NG/DL TSH Gila Testing 0.17 L 0.35-4.94 UIU/ML My Orders Orders - JASPREET OWENS DO Saline Lock/Iv-Start (03/28/17 00:08) Ekg Tracing (03/28/17 00:08) Monitor-Rhythm Ecg Trace Only (03/28/17 00:08) BNP (03/28/17 00:08) Cbc With Automated Diff (03/28/17:08) Comprehensive Metabolic Panel (03/28/17 00:08) Magnesium (03/28/17 00:08) Protime With Inr (03/28/17 00:08) Partial Thromboplastin Time (03/28/17 00:08) Thyroid Analyzer (03/28/17 00:08) Troponin I (03/28/17 00:08) Chest Pa/Lat (2 View) (03/28/17 00:08) Nitroglycerin Ointment (Nitrobid Ointme (03/28/17 00:15) Free T4 (Free Thyroxine) (03/28/17 00:30) Medications Given in ED Current Medications Medications Dose Ordered Sig/Ayan Route Start Time Stop Time Status Last Admin Dose Admin Nitroglycerin 1 inch ONCE ONCE TOP 03/28/17 00:15 03/28/17 00:16 DC 03/28/17 00:13 1 INCH Vital Signs/I&O Vital Sign - Last 12Hours 03/27/17 03/28/17 23:45 02:14 Temp 98.6 Pulse 67 57 Resp 20 18 B/P (MAP) 234/119 Pulse Ox 99 98 O2 Delivery Room Air Blood Pressure Mean: 157 Progress Note : Progress Note PT DID GO IN AND OUT OF ATRIAL FIBRILLATION DURING ER STAY BP DOWN WITH NITROPASTE, AND PT COMFORTABLE GOING HOME PT HAD NO SYMPTOMS OF ANY KIND DURING ER STAY ECG Initial ECG Impression Time: 00:18 Initial ECG Rate: 61 Initial ECG Rhythm: Normal Sinus (LBBB) Initial ECG Comparisson: Unchanged Departure Impression Impression: Primary Impression: Hypertensive urgency Additional Impressions: Anxiety CHRONIC INTERMITTENT ATRIAL FIBRILLATION Low TSH level Disposition: 01 HOME, SELF-CARE Condition: Improved Departure-Patient Inst. Referrals: JIM OLIVO MD FACP FAC CCDS NO,LOCAL PHYSICIAN (PCP) Primary Care Physician Patient Instructions: Anxiety, Adult (DC), DASH Diet, High Blood Pressure (DC) , Thyroid Stimulating Hormone Test Add. Discharge Instructions: CONTINUE YOUR MEDICATIONS PRESCRIBED FOLLOW UP WITH DR. OLIVO THIS WEEK FOR FURTHER CARE OF BLOOD PRESSURE FOLLOW UP WITH DR. MAJANO THIS WEEK FOR FURTHER CARE AND TO RECHECK THYROID All discharge instructions reviewed with patient and/or family. Voiced understanding. JASPREET OWENS DO March 28, 2017 00:10
[2017-03-28] MEDS: NITROGLYCERIN 2% OINT 1 GM UNIT DOSE PACKET TOP ONE (00:13)
[2017-03-28 00:43] LABS: BASOPHILS % (AUTO) 0 % (0-10); EOSINOPHILS # (AUTO) 0.2 10^3/uL (0.0-0.3); EOSINOPHILS % (AUTO) 5 % (0-10); LYMPHOCYTES # (AUTO) 1.1 X 10^3 (1.0-4.0); LYMPHOCYTES % (AUTO) 24 % (12-44); MEAN CORPUSCULAR HEMOGLOBIN 30 PG (25-34); MEAN CORPUSCULAR HGB CONC 33 G/DL (32-36); MEAN CORPUSCULAR VOLUME 90 FL (80-99); MEAN PLATELET VOLUME 9.6 FL (7.4-10.4); MONOCYTES # (AUTO) 0.4 X 10^3 (0.0-1.0); MONOCYTES % (AUTO) 10 % (0-12); NEUTROPHILS # (AUTO) 2.8 X 10^3 (1.8-7.8); NEUTROPHILS % (AUTO) 62 % (42-75); PLATELET COUNT 266 10^3/uL (130-400); RED BLOOD COUNT 3.95 10^6/uL (4.35-5.85); RED CELL DISTRIBUTION WIDTH 13.5 % (10.0-14.5); WHITE BLOOD COUNT 4.5 10^3/uL (4.3-11.0)
[2017-03-28 00:47] LABS: INR 1.1 (0.8-1.4); PROTHROMBIN TIME PATIENT 13.6 SEC (12.2-14.7)
[2017-03-28 00:56] LABS: ALANINE AMINOTRANSFERASE 11 U/L (0-55); ANION GAP 10 MMOL/L (5-14); ASPARTATE AMINO TRANSFERASE 22 U/L (5-34); BILIRUBIN,TOTAL 0.4 MG/DL (0.1-1.0); BLOOD UREA NITROGEN 18 MG/DL (7-18); BUN/CREATININE RATIO 21; CALCIUM 9.5 MG/DL (8.5-10.1); CARBON DIOXIDE 25 MMOL/L (21-32); CHLORIDE 105 MMOL/L (98-107); CREATININE SERUM 0.84 MG/DL (0.60-1.30); GFR ESTIMATED > 60; GLUCOSE 118 MG/DL (70-105); MAGNESIUM 1.8 MG/DL (1.8-2.4); SODIUM 140 MMOL/L (135-145); TOTAL PROTEIN 7.3 G/DL (6.4-8.2)
[2017-03-28 01:15] LABS: TROPONIN I < 0.30 NG/ML (<0.30)
[2017-03-28 02:14] VITALS: BP 195/85
--- NOTE | 2017-03-28 07:28 | Diagnostic Imaging Report ---
INDICATION: Shortness of breath. COMPARISON: 03/06/2017 and correlated with chest CT performed 07/08/2016. FINDINGS: An irregular parenchymal opacity in the right lower lobe is more dense and conspicuous radiographically than compared with prior roughly 2.3 cm. Air trapping and COPD chronic. Upper limits heart size stable. No vascular congestion. No effusion or pneumothorax. IMPRESSION: Irregular parenchymal opacity in the right lower lobe more conspicuous radiographically than when compared with the recent chest radiograph mass at that level noted on the older CT. COPD chronic. No failure. Dictated by: Dictated on workstation # [id number]
== END 2017-03-28 02:14 | disposition home or self-care (01) ==
LOC: EDUNIT# 23:29 → ER 23:31
DX: I16.0 Hypertensive urgency (principal); I48.2 Chronic atrial fibrillation; F41.9 Anxiety disorder, unspecified; R94.8 Abnormal results of function studies of other organs and systems; F17.210 Nicotine dependence, cigarettes, uncomplicated; Z85.118 Personal history of other malignant neoplasm of bronchus and lung; F31.9 Bipolar disorder, unspecified; I25.10 Atherosclerotic heart disease of native coronary artery without angina pectoris
CPT/HCPCS: 36415; 71020; 80053; 83735; 83880; 84439; 84443; 84484; 85025; 85610; 85730; 93005

== ENCOUNTER 2017-04-13 14:48 | Emergency (ER) | payer MEDICARE, MEDICAID ==
[~2017-04-13] VITALS: Ht 167.6 cm; Wt 65.8 kg
[2017-04-13 15:17] LABS: BASOPHILS % (AUTO) 0 % (0-10); EOSINOPHILS # (AUTO) 0.2 10^3/uL (0.0-0.3); EOSINOPHILS % (AUTO) 4 % (0-10); LYMPHOCYTES # (AUTO) 0.8 X 10^3 (1.0-4.0); LYMPHOCYTES % (AUTO) 17 % (12-44); MEAN CORPUSCULAR HEMOGLOBIN 29 PG (25-34); MEAN CORPUSCULAR HGB CONC 33 G/DL (32-36); MEAN CORPUSCULAR VOLUME 90 FL (80-99); MEAN PLATELET VOLUME 9.6 FL (7.4-10.4); MONOCYTES # (AUTO) 0.3 X 10^3 (0.0-1.0); MONOCYTES % (AUTO) 7 % (0-12); NEUTROPHILS # (AUTO) 3.3 X 10^3 (1.8-7.8); NEUTROPHILS % (AUTO) 72 % (42-75); PLATELET COUNT 340 10^3/uL (130-400); RED BLOOD COUNT 4.29 10^6/uL (4.35-5.85); RED CELL DISTRIBUTION WIDTH 13.5 % (10.0-14.5); WHITE BLOOD COUNT 4.6 10^3/uL (4.3-11.0)
[2017-04-13 15:34] LABS: ANION GAP 12 MMOL/L (5-14); ASPARTATE AMINO TRANSFERASE 21 U/L (5-34); BILIRUBIN,TOTAL 0.7 MG/DL (0.1-1.0); BLOOD UREA NITROGEN 21 MG/DL (7-18); BUN/CREATININE RATIO 22; CALCIUM 9.9 MG/DL (8.5-10.1); CARBON DIOXIDE 22 MMOL/L (21-32); CHLORIDE 107 MMOL/L (98-107); CREATININE SERUM 0.94 MG/DL (0.60-1.30); GFR ESTIMATED 58; GLUCOSE 112 MG/DL (70-105); POTASSIUM 3.9 MMOL/L (3.6-5.0); SODIUM 141 MMOL/L (135-145)
[2017-04-13 15:35] LABS: ALANINE AMINOTRANSFERASE 14 U/L (0-55); ALBUMIN 4.1 G/DL (3.2-4.5); TOTAL PROTEIN 7.3 G/DL (6.4-8.2)
[2017-04-13 15:40] LABS: TROPONIN I < 0.30 NG/ML (<0.30)
--- NOTE | 2017-04-13 15:49 | ED Cardiac General ---
History of Present Illness General Chief Complaint: Respiratory Problems Stated Complaint: SOA/ANXIETY Nursing Triage Note: TO ROOM 08 VIA AMBULANCE FROM HOME. CALLED DUE TO SOA. EMS REPORTS PT BEING IN AFIB WHEN THEY PICKED HER UP ET SHE CONVERTED ON THE WAY TO HOSPITAL. PT STATES SHE FEELS FINE NOW. Source: patient Exam Limitations: no limitations History of Present Illness Time seen by provider: 15:15 Initial Comments The patient is a 76-year-old white female who reports that she felt her heart pounding at home. She felt very anxious and in fact noted a sense of impending doom. She feared that she would . She was admitted here approximately one month ago and that was noted to have atrial fibrillation at that time. She was placed on Eliquis and a beta coby. Monitor strips from the ambulance showed atrial fibrillation at a rate of 135-150. Shortly after arriving here she converted to a sinus rhythm and feels much better. Timing/Duration: 1-3 hours Activities at Onset: none Allergies and Home Medications Allergies Coded Allergies: Penicillins (Unverified Allergy, Mild, RASH, 09/24/10) RUPAL Inhibitors (Verified Allergy, Unknown, HIVES, 12/11/16) atorvastatin (Verified Allergy, Unknown, HIVES, 12/11/16) iodine (Verified Allergy, Unknown, HIVES, 12/11/16) Home Medications Albuterol Sulfate 18 Gm Hfa.aer.ad, 2 PUFF INH Q4H PRN for SHORTNESS OF BREATH, (Reported) Apixaban 5 Mg Tablet, 5 MG PO BID, (Reported) LAST FILLED #60 01-20-17 Aspirin 325 Mg Tablet.dr, 325 MG PO DAILY, (Reported) Budesonide/Formoterol Fumarate 10.2 Gm Hfa.aer.ad, 2 PUFF INH BID, (Reported) Diltiazem HCl 240 Mg Cap.er.24h, 240 MG PO DAILY, (Reported) Furosemide 20 Mg Tablet, 20 MG PO DAILY, (Reported) LAST FILLED #60 17 Hydrocodone/Acetaminophen 1 Each Tablet, 1 TAB PO DAILY PRN for PAIN-SEVERE, ( Reported) Metoprolol Tartrate 100 Mg Tablet, 100 MG PO BID, (Reported) Potassium Chloride 8 Meq Tablet.er, 8 MEQ PO DAILY, (Reported) Tiotropium [place] 4 Gm Mist.inhal, 2 PUFF IH DAILY, (Reported) Valsartan 80 Mg Tablet, 80 MG PO BID, (Reported) LAST FILLED #60 01-13-17 Review of Systems Constitutional: see HPI EENTM: No Symptoms Reported Respiratory: SOA With Exertion Cardiovascular: Palpitations Gastrointestinal: No Symptoms Reported Genitourinary: No Symptoms Reported Musculoskeletal: no symptoms reported Skin: no symptoms reported Psychiatric/Neurological: No Symptoms Reported Endocrine: No Symptoms Reported Hematologic/Lymphatic: No Symptoms Reported Past Djemgrf-Sbnyri-Udnckp Hx Patient Social History Alcohol Use: Denies Use Recreational Drug Use: No Smoking Status: Former Smoker Type Used: Cigarettes Former Smoker/When Quit: Mar 15, 1982 Recent Foreign Travel: No Contact w/Someone Who Travel: No Recent Infectious Disease Expo: No Recent Hopitalizations: Yes Immunizations Up To Date Date of Pneumonia Vaccine: Aug 17, 2013 Date of Influenza Vaccine: Sep 07, 2013 Seasonal Allergies Seasonal Allergies: No Surgeries HX Surgeries: Yes (CARDIAC CATH; RIGHT LUNG RESECTION/TUMOR REMOVAL) Surgeries: Cardiac, Gallbladder, Hysterectomy, Lobectomy, Tonsillectomy Respiratory Hx Respiratory Disorders: Yes (+ 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. 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 Genitourinary Hx Genitourinary Disorders: Yes Genitourinary Disorders: Bladder Infection Gastrointestinal Hx Gastrointestinal Disorders: Yes (S/P SOCORRO) Gastrointestinal Disorders: Gall Bladder Disease Musculoskeletal Hx Musculoskeletal Disorders: No Endocrine Hx Endocrine Disorders: No HEENT HX ENT Disorders: Yes HEENT Disorders: Cataract Cancer Hx Cancer: Yes Cancer: Lung Psychosocial Hx Psychiatric Problems: Yes Behavioral Health Disorders: Anxiety, Bipolar, Depression Integumentary HX Skin/Integumentary Disorder: No Blood Transfusions Hx Blood Disorders: No Adverse Reaction to a Blood Tr: No Family Medical History Family Medial History: Patient reports no known family medical history. Physical Exam Vital Signs Vital Sign - Last 12Hours 04/13/17 14:53 Pulse 93 Resp 16 B/P (MAP) 142/80 Pulse Ox 96 Capillary Refill : Less Than 3 Seconds General Appearance: No Apparent Distress, WD/WN HEENT: Normal ENT Inspection Neck: Normal Inspection Respiratory: Chest Non Tender, Lungs Clear, Normal Breath Sounds, No Accessory Muscle Use, No Respiratory Distress Cardiovascular: Regular Rate, Rhythm, No Edema, No Gallop, No JVD, No Murmur, Normal Peripheral Pulses Gastrointestinal: Normal Bowel Sounds, No Organomegaly, No Pulsatile Mass, Non Tender Extremity: Normal Capillary Refill, Normal Inspection, Normal Range of Motion, Non Tender, No Calf Tenderness, No Pedal Edema Neurologic/Psychiatric: Alert, Oriented x3, No Motor/Sensory Deficits, Normal Mood/Affect Skin: Normal Color, Warm/Dry Lymphatic: No Adenopathy Progress/Results/Core Measures Results/Orders Lab Results Laboratory Tests Test 04/13/17 15:08 Range/Units White Blood Count 4.6 4.3-11.0 10^3/uL Red Blood Count 4.29 L 4.35-5.85 10^6/uL Hemoglobin 12.6 11.5-16.0 G/DL Hematocrit 39 35-52 % Mean Corpuscular Volume 90 80-99 FL Mean Corpuscular Hemoglobin 29 25-34 PG Mean Corpuscular Hemoglobin Concent 33 32-36 G/DL Red Cell Distribution Width 13.5 10.0-14.5 % Platelet Count 340 130-400 10^3/uL Mean Platelet Volume 9.6 7.4-10.4 FL Neutrophils (%) (Auto) 72 42-75 % Lymphocytes (%) (Auto) 17 12-44 % Monocytes (%) (Auto) 7 0-12 % Eosinophils (%) (Auto) 4 0-10 % Basophils (%) (Auto) 0 0-10 % Neutrophils # (Auto) 3.3 1.8-7.8 X 10^3 Lymphocytes # (Auto) 0.8 L 1.0-4.0 X 10^3 Monocytes # (Auto) 0.3 0.0-1.0 X 10^3 Eosinophils # (Auto) 0.2 0.0-0.3 10^3/uL Basophils # (Auto) 0.0 0.0-0.1 10^3/uL Sodium Level 141 135-145 MMOL/L Potassium Level 3.9 3.6-5.0 MMOL/L Chloride Level 107 98-107 MMOL/L Carbon Dioxide Level 22 21-32 MMOL/L Anion Gap 12 5-14 MMOL/L Blood Urea Nitrogen 21 H 7-18 MG/DL Creatinine 0.94 0.60-1.30 MG/DL Estimat Glomerular Filtration Rate 58 BUN/Creatinine Ratio 22 Glucose Level 112 H 70-105 MG/DL Calcium Level 9.9 8.5-10.1 MG/DL Total Bilirubin 0.7 0.1-1.0 MG/DL Aspartate Amino Transf (AST/SGOT) 21 5-34 U/L Alanine Aminotransferase (ALT/SGPT) 14 0-55 U/L Alkaline Phosphatase 93 40-136 U/L Troponin I < 0.30 <0.30 NG/ML B-Type Natriuretic Peptide 79.4 <100.0 PG/ML Total Protein 7.3 6.4-8.2 G/DL Albumin 4.1 3.2-4.5 G/DL Vital Signs/I&O Vital Sign - Last 12Hours 04/13/17 14:53 Pulse 93 Resp 16 B/P (MAP) 142/80 Pulse Ox 96 Blood Pressure Mean: 100 Departure Communication Progress Notes [id number] discussed with JIM Corona. The patient is currently in sinus rhythm. She is chronically on Eliquis. She will be discharged on an increased dose of metoprolol and asked to see him in the office on Saturday Impression Impression: Primary Impression: atrial fibrillation with rapid ventricular response Additional Impression: conversion to sinus rhythm Disposition: 01 HOME, SELF-CARE Condition: Improved Departure-Patient Inst. Referrals: NO,LOCAL PHYSICIAN (PCP/Family) Primary Care Physician Add. Discharge Instructions: All discharge instructions reviewed with patient and/or family. Voiced understanding. Increase metoprolol to 200 mg twice daily Call JIM Corona's office, [phone] on Saturday for appointment to see him on Saturday DARIUS LAW MD April 13, 2017 15:49
--- NOTE | 2017-04-13 15:59 | Diagnostic Imaging Report ---
INDICATION: Shortness of breath. COMPARISON: 03/28/2017. FINDINGS: Upright portable view of the chest is obtained. Heart size is enlarged but unchanged. There is no central venous congestion or evidence of failure. No pneumothorax or pleural fluid. The irregular parenchymal density in the right lower chest is moderately improved when compared to the prior study. There is a persistent 1.6 cm nodular focus at the center of this density, possibly scarring or infection. However, continued followup is suggested to document complete resolution as underlying nodule is not excluded. The left lung remains clear. No new abnormality is seen. IMPRESSION: Irregular parenchymal density in the right lower lobe has improved since the recent prior study; however, there is some residual nodular density centrally within this region. This may represent some resolving infiltrate and/or some underlying chronic scarring. Focal pulmonary nodule is not excluded, however, and continued followup is suggested. No new abnormality is seen. Dictated by: Dictated on workstation # [id number]
[2017-04-13 16:04] VITALS: BP 123/62
== END 2017-04-13 16:04 | disposition home or self-care (01) ==
LOC: EDUNIT# 14:48 → ER 14:49
DX: I48.2 Chronic atrial fibrillation (principal); I10 Essential (primary) hypertension; I25.10 Atherosclerotic heart disease of native coronary artery without angina pectoris; J44.9 Chronic obstructive pulmonary disease, unspecified; Z79.01 Long term (current) use of anticoagulants; Z79.82 Long term (current) use of aspirin; Z79.899 Other long term (current) drug therapy; Z87.891 Personal history of nicotine dependence
CPT/HCPCS: 36415; 71010; 80053; 83880; 84484; 85025; 93005

== ENCOUNTER 2017-04-20 15:16 | Inpatient (IN) | payer MEDICARE, MEDICAID ==
[~2017-04-20] VITALS: Ht 167.6 cm; Wt 70.3 kg
--- NOTE | 2017-04-20 16:04 | ED Cardiac General ---
History of Present Illness General Chief Complaint: Cardiac/General Problems Stated Complaint: SOB/DIZZY Nursing Triage Note: C/O RAPID HEART RATE (RESOLVED) X 90MIN. Source: patient Exam Limitations: no limitations History of Present Illness Time seen by provider: 16:04 Initial Comments 76-year-old female patient presents to the emergency department complaints of palpitations for approximately 90 minutes. Patient reports symptoms worse with ambulation. States she tried to walk down to the cafeteria before checking in to see if symptoms resolve, but states she had to stop several times for shortness of air on the way to and from the cafeteria. States she is diagnosed with atrial fibrillation approximately 3 weeks ago. Just prior to symptoms occurring, patient states her . Patient reports she has not been sleeping well due to worrying about not waking up in the morning. Patient was seen here on April 13 for recurrent symptoms and was discharged to home after increasing her metoprolol. Timing/Duration: 1-3 hours, gone now Activities at Onset: none Prior CP/Workup: echocardiography Modifying Factors: worse with exercise, improves with rest NTG SL KICK BOXER: No ASA po KICK BOXER: No Allergies and Home Medications Allergies Coded Allergies: Penicillins (Unverified Allergy, Mild, RASH, 09/24/10) RUPAL Inhibitors (Verified Allergy, Unknown, HIVES, 12/11/16) atorvastatin (Verified Allergy, Unknown, HIVES, 12/11/16) iodine (Verified Allergy, Unknown, HIVES, 12/11/16) Home Medications Albuterol Sulfate 18 Gm Hfa.aer.ad, 2 PUFF INH Q4H PRN for SHORTNESS OF BREATH, (Reported) Apixaban 5 Mg Tablet, 5 MG PO BID, (Reported) LAST FILLED #60 01-20-17 Aspirin 325 Mg Tablet.dr, 325 MG PO DAILY, (Reported) Budesonide/Formoterol Fumarate 10.2 Gm Hfa.aer.ad, 2 PUFF INH BID, (Reported) Diltiazem HCl 240 Mg Cap.er.24h, 240 MG PO DAILY, (Reported) Furosemide 20 Mg Tablet, 20 MG PO DAILY, (Reported) LAST FILLED #60 01-06-17 Metoprolol Tartrate 100 Mg Tablet, 100 MG PO BID, (Reported) Potassium Chloride 8 Meq Tablet.er, 8 MEQ PO DAILY, (Reported) Tiotropium [place] 4 Gm Mist.inhal, 2 PUFF IH DAILY, (Reported) Valsartan 80 Mg Tablet, 80 MG PO BID, (Reported) LAST FILLED #60 01-13-17 Review of Systems Constitutional: No chills, No diaphoresis, No dizziness, No fever, No malaise, weakness EENTM: No Symptoms Reported Respiratory: Denies Cough, Denies Orthopnea, SOA With Exertion, Denies SOA at Rest Cardiovascular: Denies Chest Pain, Denies Edema, Irregular Heart Rate, Denies Lightheadedness, Palpitations, Denies Syncope Gastrointestinal: No Symptoms Reported Genitourinary: No Symptoms Reported Musculoskeletal: no symptoms reported Skin: no symptoms reported Psychiatric/Neurological: Denies Headache, Denies Numbness, Denies Paresthesia , Denies Seizure, Denies Tingling, Denies Weakness All Other Systems Reviewed Negative Unless Noted: Yes (Negative excepted noted.) Past Hqcwdvk-Irgcma-Unurlz Hx Patient Social History Alcohol Use: Denies Use Recreational Drug Use: No Smoking Status: Former Smoker Type Used: Cigarettes Former Smoker/When Quit: Mar 15, 1982 2nd Hand Smoke Exposure: No Recent Foreign Travel: No Contact w/Someone Who Travel: No Recent Infectious Disease Expo: No Recent Hopitalizations: No Immunizations Up To Date Date of Pneumonia Vaccine: Aug 17, 2013 Date of Influenza Vaccine: Sep 07, 2013 Seasonal Allergies Seasonal Allergies: No Surgeries HX Surgeries: Yes (CARDIAC CATH; RIGHT LUNG RESECTION/TUMOR REMOVAL) Surgeries: Cardiac, Gallbladder, Hysterectomy, Lobectomy, Tonsillectomy Respiratory Hx Respiratory Disorders: Yes (+ 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. 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 Genitourinary Hx Genitourinary Disorders: Yes Genitourinary Disorders: Bladder Infection Gastrointestinal Hx Gastrointestinal Disorders: Yes (S/P SOCORRO) Gastrointestinal Disorders: Gall Bladder Disease Musculoskeletal Hx Musculoskeletal Disorders: No Endocrine Hx Endocrine Disorders: No HEENT HX ENT Disorders: Yes HEENT Disorders: Cataract Cancer Hx Cancer: Yes Cancer: Lung Psychosocial Hx Psychiatric Problems: Yes Behavioral Health Disorders: Anxiety, Bipolar, Depression Integumentary HX Skin/Integumentary Disorder: No Blood Transfusions Hx Blood Disorders: No Adverse Reaction to a Blood Tr: No Reviewed Nursing Assessment Reviewed/Agree w Nursing PMH: Yes Family Medical History Significant Family History: No Pertinent Family Hx Family Medial History: Patient reports no known family medical history. Physical Exam Vital Signs Vital Sign - Last 12Hours 04/20/17 04/20/17 08:05 15:37 Temp 97.4 Pulse 87 Resp 18 B/P (MAP) 98/71 Pulse Ox 97 O2 Delivery Room Air Capillary Refill : Less Than 3 Seconds General Appearance: Anxious, Chronically ill HEENT: PERRL/EOMI, TMs Normal, Normal ENT Inspection, Pharynx Normal Neck: Normal Inspection, Supple Respiratory: Lungs Clear, Normal Breath Sounds, No Accessory Muscle Use, No Respiratory Distress Cardiovascular: No Edema, No Murmur, Normal Peripheral Pulses, Irregularly Irregular Gastrointestinal: Normal Bowel Sounds, No Organomegaly, No Pulsatile Mass, Non Tender, Soft, No Distended Extremity: Normal Capillary Refill, No Calf Tenderness, No Pedal Edema Neurologic/Psychiatric: Alert, Oriented x3, No Motor/Sensory Deficits, shirt marker II- XII Norm as Tested, Other (anxious) Skin: Normal Color, Warm/Dry Progress/Results/Core Measures Results/Orders Lab Results Laboratory Tests Test 04/20/17 15:50 Range/Units White Blood Count 7.8 4.3-11.0 10^3/uL Red Blood Count 4.56 4.35-5.85 10^6/uL Hemoglobin 13.3 11.5-16.0 G/DL Hematocrit 41 35-52 % Mean Corpuscular Volume 90 80-99 FL Mean Corpuscular Hemoglobin 29 25-34 PG Mean Corpuscular Hemoglobin Concent 32 32-36 G/DL Red Cell Distribution Width 13.9 10.0-14.5 % Platelet Count 348 130-400 10^3/uL Mean Platelet Volume 9.8 7.4-10.4 FL Neutrophils (%) (Auto) 79 H 42-75 % Lymphocytes (%) (Auto) 13 12-44 % Monocytes (%) (Auto) 6 0-12 % Eosinophils (%) (Auto) 2 0-10 % Basophils (%) (Auto) 0 0-10 % Neutrophils # (Auto) 6.2 1.8-7.8 X 10^3 Lymphocytes # (Auto) 1.0 1.0-4.0 X 10^3 Monocytes # (Auto) 0.5 0.0-1.0 X 10^3 Eosinophils # (Auto) 0.2 0.0-0.3 10^3/uL Basophils # (Auto) 0.0 0.0-0.1 10^3/uL Sodium Level 138 135-145 MMOL/L Potassium Level 4.4 3.6-5.0 MMOL/L Chloride Level 105 98-107 MMOL/L Carbon Dioxide Level 17 L 21-32 MMOL/L Anion Gap 16 H 5-14 MMOL/L Blood Urea Nitrogen 23 H 7-18 MG/DL Creatinine 1.21 0.60-1.30 MG/DL Estimat Glomerular Filtration Rate 43 BUN/Creatinine Ratio 19 Glucose Level 112 H 70-105 MG/DL Calcium Level 9.8 8.5-10.1 MG/DL Total Bilirubin 0.5 0.1-1.0 MG/DL Aspartate Amino Transf (AST/SGOT) 23 5-34 U/L Alanine Aminotransferase (ALT/SGPT) 15 0-55 U/L Alkaline Phosphatase 92 40-136 U/L Troponin I < 0.30 <0.30 NG/ML Total Protein 7.9 6.4-8.2 G/DL Albumin 4.1 3.2-4.5 G/DL Free Thyroxine 1.33 0.70-1.48 NG/DL TSH [place] Testing 0.02 L 0.35-4.94 UIU/ML My Orders Orders - MECHE MCARTHUR Saline Lock/Iv-Start (04/20/17 15:42) Ekg Tracing (04/20/17 15:42) Monitor-Rhythm Ecg Trace Only (04/20/17 15:42) Troponin I (04/20/17 15:42) Chest 1 View, Ap/Pa Only (04/20/17 15:42) Cbc With Automated Diff (04/20/17 15:42) Comprehensive Metabolic Panel (04/20/17 15:42) Thyroid Analyzer (04/20/17 17:03) Free T4 (Free Thyroxine) (04/20/17 15:50) Vital Signs/I&O Vital Sign - Last 12Hours 04/20/17 04/20/17 04/20/17 08:05 15:37 18:28 Temp 97.4 Pulse 87 112 89 Resp 18 13 B/P (MAP) 98/71 138/76 Pulse Ox 97 O2 Delivery Room Air Room Air Blood Pressure Mean: 80 ECG Initial ECG Impression Date: April 20, 2017 Initial ECG Impression Time: 15:42 Initial ECG Rate: 97 Initial ECG Rhythm: A Fib/Flutter Initial ECG Comparisson: Unchanged Comment Atrial flutter and left bundle branch block. Similar to ECG from 03/06/17. ECG reviewed and discussed with Dr. Jered Coats. Diagnostic Imaging Diagonstic Imaging: Xray Plain Films/CT/US/NM/MRI: chest Comments FINDINGS: Heart size is normal. The pulmonary vessels appear unremarkable. There is no pneumothorax or pleural fluid suspected. Irregular parenchymal density in the right lower lobe persists, perhaps minimally improved from the prior study. There are postoperative changes of the right midlung, which are unchanged. The left lung remains well-aerated. No significant new abnormality is seen. IMPRESSION: Perhaps minimally improved but persistent irregular parenchymal density in the right mid to lower chest may represent scarring or resolving pneumonia. No significant new abnormality is demonstrated. Dictated by : Dictated on workstation # [id number] Reviewed: Reviewed by Me (radiology report reviewed by me) Departure Communication Time/Spoke to Admitting Phy: 18:[address] Quiñonez graciously accepts this patient to her internal medicine service for IV fluids, thyroid ultrasound in a.m., and further management. Request consult of cardiology. Time/Spoke to Consulting Physi: 18:45 Communication/Consulting Dr. Rdz notified of consult Progress Notes All laboratory findings, diagnostic study findings, plan for admission discussed with the patient. Patient voices understanding and wishes to proceed. Patient case discussed with Dr. Mooney, he agrees with the plan of care. Impression Impression: Primary Impression: Atrial fibrillation Qualified Codes: I48.0 - Paroxysmal atrial fibrillation Additional Impressions: VIRK (dyspnea on exertion) Hyperthyroidism Anxiety Disposition: 09 ADMITTED INPATIENT Condition: Stable Decision to Admit Reason: Admit from ER (General) Decision to Admit/Date: April 20, 2017 Time/Decision to Admit Time: 18:20 Departure-Patient Inst. Referrals: NO,LOCAL PHYSICIAN (PCP/Family) Primary Care Physician MECHE MCARTHUR April 20, 2017 16:04
[2017-04-20 16:06] LABS: BASOPHILS % (AUTO) 0 % (0-10); EOSINOPHILS # (AUTO) 0.2 10^3/uL (0.0-0.3); EOSINOPHILS % (AUTO) 2 % (0-10); LYMPHOCYTES % (AUTO) 13 % (12-44); MEAN CORPUSCULAR HEMOGLOBIN 29 PG (25-34); MEAN CORPUSCULAR HGB CONC 32 G/DL (32-36); MEAN CORPUSCULAR VOLUME 90 FL (80-99); MEAN PLATELET VOLUME 9.8 FL (7.4-10.4); MONOCYTES # (AUTO) 0.5 X 10^3 (0.0-1.0); MONOCYTES % (AUTO) 6 % (0-12); NEUTROPHILS # (AUTO) 6.2 X 10^3 (1.8-7.8); NEUTROPHILS % (AUTO) 79 % (42-75); PLATELET COUNT 348 10^3/uL (130-400); RED BLOOD COUNT 4.56 10^6/uL (4.35-5.85); RED CELL DISTRIBUTION WIDTH 13.9 % (10.0-14.5); WHITE BLOOD COUNT 7.8 10^3/uL (4.3-11.0)
--- NOTE | 2017-04-20 16:20 | Diagnostic Imaging Report ---
INDICATION: History of lung cancer. CHF. Rapid heart rate. COMPARISON: 04/13/2017. EXAMINATION: Upright portable view of the chest was obtained. FINDINGS: Heart size is normal. The pulmonary vessels appear unremarkable. There is no pneumothorax or pleural fluid suspected. Irregular parenchymal density in the right lower lobe persists, perhaps minimally improved from the prior study. There are postoperative changes of the right midlung, which are unchanged. The left lung remains well-aerated. No significant new abnormality is seen. IMPRESSION: Perhaps minimally improved but persistent irregular parenchymal density in the right mid to lower chest may represent scarring or resolving pneumonia. No significant new abnormality is demonstrated. Dictated by: Dictated on workstation # [id number]
[2017-04-20 16:24] LABS: ALBUMIN 4.1 G/DL (3.2-4.5); BILIRUBIN,TOTAL 0.5 MG/DL (0.1-1.0); CALCIUM 9.8 MG/DL (8.5-10.1); CREATININE SERUM 1.21 MG/DL (0.60-1.30); POTASSIUM 4.4 MMOL/L (3.6-5.0); TOTAL PROTEIN 7.9 G/DL (6.4-8.2)
[2017-04-20] MEDS ORDERED: ONDANSETRON 4 MG/2 ML (SDV) Z0FRAN IV PRN (20:15)
[2017-04-20 20:16] VITALS: BP 128/68
[2017-04-20] MEDS ORDERED: CATHETER FLUSH 10 ML SYR IV PRN (20:30)
[2017-04-20] MEDS: CATHETER FLUSH 10 ML SYR IV SCH (21:07)
[2017-04-20] MEDS: NS IV 1000 ML 1,000 ML IV SCH (21:07)
[2017-04-20] MEDS ORDERED: meTOprolol TARTRATE 50 MG (LOPRESSOR) TAB ONE (21:43)
[2017-04-20] MEDS ORDERED: APIXABAN 5 MG (ELIQUIS) TABLET ONE (21:43)
[2017-04-20] MEDS: APIXABAN 5 MG (ELIQUIS) TABLET PO SCH (21:50)
[2017-04-20] MEDS: meTOprolol TARTRATE 25 MG (LOPRESSOR) TABLET PO SCH (21:51)
[2017-04-21] VITALS: BP 113/55
[2017-04-21 04:00] VITALS: BP 110/56
[2017-04-21] MEDS: NS IV 1000 ML 1,000 ML IV SCH ×3 (04:39→20:05)
[2017-04-21] MEDS: CATHETER FLUSH 10 ML SYR IV SCH ×3 (05:25→20:05)
[2017-04-21 06:34] LABS: BASOPHILS % (AUTO) 0 % (0-10); EOSINOPHILS # (AUTO) 0.3 10^3/uL (0.0-0.3); EOSINOPHILS % (AUTO) 5 % (0-10); LYMPHOCYTES # (AUTO) 1.3 X 10^3 (1.0-4.0); LYMPHOCYTES % (AUTO) 22 % (12-44); MEAN CORPUSCULAR HEMOGLOBIN 30 PG (25-34); MEAN CORPUSCULAR HGB CONC 33 G/DL (32-36); MEAN CORPUSCULAR VOLUME 91 FL (80-99); MEAN PLATELET VOLUME 10.1 FL (7.4-10.4); MONOCYTES # (AUTO) 0.4 X 10^3 (0.0-1.0); MONOCYTES % (AUTO) 8 % (0-12); NEUTROPHILS # (AUTO) 3.7 X 10^3 (1.8-7.8); NEUTROPHILS % (AUTO) 65 % (42-75); PLATELET COUNT 280 10^3/uL (130-400); RED CELL DISTRIBUTION WIDTH 13.8 % (10.0-14.5); WHITE BLOOD COUNT 5.7 10^3/uL (4.3-11.0)
[2017-04-21 06:51] LABS: ALBUMIN 3.5 G/DL (3.2-4.5); BILIRUBIN,TOTAL 0.6 MG/DL (0.1-1.0); CALCIUM 9.1 MG/DL (8.5-10.1); CREATININE SERUM 0.93 MG/DL (0.60-1.30); POTASSIUM 3.7 MMOL/L (3.6-5.0); TOTAL PROTEIN 6.5 G/DL (6.4-8.2)
[2017-04-21 08:00] VITALS: BP 133/60
[2017-04-21] MEDS: meTOprolol TARTRATE 25 MG (LOPRESSOR) TABLET PO SCH ×2 (08:55→16:22)
[2017-04-21] MEDS: APIXABAN 5 MG (ELIQUIS) TABLET PO SCH ×2 (09:34→20:05)
--- NOTE | 2017-04-21 09:58 | History & Physical-Hospitalist ---
HPI History of Present Illness: HPI/Chief Complaint Pt is a 76yoCF with PMH of a-fib, subclinical hyperthyroidism, and lung cancer s /p lobectomy and radiation who presented to the ER with CC of SULLY. She has been seen in the ER multiple times for palpitations mostly recently 04/13 where her metoprolol dose was increased. She suddenly felt short of breath yesterday and felt her "heart was jumping out of her chest.' It improved with rest on the drive her but then worsened with ambulation to the cafeteria. She was found to be in a-fib with RVR and admitted for further management as she was persistently symptomatic. Source: patient, RN/MD, old records Exam Limitations: no limitations Date Seen 04/21/17 Attending Physician Anita Lee DO PCP No,Local Physician Referring Physician Date of Admission April 20, 2017 at 18:45 Home Medications & Allergies Home Medications Reviewed patient Home Medication Reconciliation Form Allergies Allergies Coded Allergies Penicillins (Unverified Allergy, Mild, RASH, 09/24/10) RUPAL Inhibitors (Verified Allergy, Unknown, HIVES, 12/11/16) atorvastatin (Verified Allergy, Unknown, HIVES, 12/11/16) iodine (Verified Allergy, Unknown, HIVES, 12/11/16) Past Jxbffso-Zfdmaf-Groywv Hx Patient Social History Marrital Status: Alcohol Use: Denies Use Recreational Drug Use: No Smoking Status: Former Smoker Former smoker/When Quit: Mar 15, 1982 Type Used: Cigarettes 2nd Hand Smoke Exposure: No Physical Abuse Screen: No Sexual Abuse: No Recent Foreign Travel: No Contact w/other who traveled: No Recent Hopitalizations: Yes Recent Infectious Disease Expo: No Immunizations Up To Date Date of Pneumonia Vaccine: Aug 17, 2013 Date of Influenza Vaccine: Sep 07, 2013 Seasonal Allergies Seasonal Allergies: No Surgeries HX Surgeries: Yes (CARDIAC CATH; RIGHT LUNG RESECTION/TUMOR REMOVAL) Surgeries: Cardiac, Gallbladder, Hysterectomy, Lobectomy, Tonsillectomy Respiratory Hx Respiratory Disorders: Yes (+ 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, s/p lobectomy) Cardiovascular Hx Cardiovascular Disorders: Yes (LBBB, LVH, CHF) Cardiac Disorders: Atrial Fibrillation, Coronary Artery Disease, Hypertension, Palpitations Neurological Hx Neurological Disorders: Yes Neurological Disorders: TIA Reproductive System Hx Reproductive Disorders: No Sexually Transmitted Disease: No HIV/AIDS: No Genitourinary Hx Genitourinary Disorders: Yes Genitourinary Disorders: Bladder Infection Gastrointestinal Hx Gastrointestinal Disorders: Yes (S/P SOCORRO) Gastrointestinal Disorders: Gall Bladder Disease (s/p cholectomy) Musculoskeletal Hx Musculoskeletal Disorders: No Musculoskeletal Disorders: Arthritis, Chronic Back Pain Endocrine Hx Endocrine Disorders: Yes Endocrine Disorders: Hyperthyroidism HEENT HX ENT Disorders: Yes HEENT Disorders: Cataract Cancer Hx Cancer: Yes Cancer: Lung Psychosocial Hx Psychiatric Problems: Yes Behavioral Health Disorders: Anxiety, Depression Integumentary HX Skin/Integumentary Disorder: No Blood Transfusions Hx Blood Disorders: No Adverse Reaction to a Blood Tr: No Reviewed Nursing Assessment Reviewed/Agree w Nursing PMH: Yes Family Medical History Significant Family History: No Pertinent Family Hx Other Significan Family Hx: Mother: 95yo alive and well, sister 71yo alive and well Review of Systems Constitutional: No diaphoresis, dizziness, No fever, weakness EENTM: No blurred vision, No vision loss Respiratory: No cough, dyspnea on exertion, No phlegm, short of breath Cardiovascular: No chest pain, No edema, palpitations Gastrointestinal: No diarrhea, nausea, No vomiting Genitourinary: No dysuria Musculoskeletal: back pain Psychiatric/Neurological: Anxiety Physical Exam Physical Exam Vital Signs Vital Sign - Last 12Hours 04/20/17 04/20/17 08:05 15:37 Temp 97.4 Pulse 87 Resp 18 B/P (MAP) 98/71 Pulse Ox 97 O2 Delivery Room Air Capillary Refill : Less Than 3 Seconds General Appearance: No Apparent Distress, WD/WN HEENT: PERRL/EOMI, No Scleral Icterus (L), No Scleral Icterus (R) Neck: Non Tender, Supple, No Thyromegaly Respiratory: Chest Non Tender, Normal Breath Sounds, No Accessory Muscle Use, No Respiratory Distress Cardiovascular: No No JVD, No No Murmur, Bradycardia Gastrointestinal: Normal Bowel Sounds, Non Tender, Soft Back: Normal Inspection Neurologic/Psychiatric: Alert, Oriented x3, Other (tangential) Skin: Normal Color, Warm/Dry Results Results/Procedures Lab Laboratory Tests 04/20/17 15:50 04/21/17 06:10 Assessment/Plan Admission Diagnosis A-fib with RVR Assessment and Plan A-fib with RVR - Bradycardiac now, sounds regular on my exam will get EKG to change for a-fib with slow ventricular rate vs bradycardia - Cardiology consulted, appreciate recs - Hold metoprolol and HR dropped to 38 this AM (pt asymptomatic) Subclinical hyperthyroidism - TSH low but normal T4 - Will get thyroid usg - No indicate for medications but will need to follow with her PCP for monitoring h/o Lung Ca - reports in remission HTN, currently hypo/normotensive - reports labile at home between 90/60 and 200/110 - Monitor here, holding metoprolol/diltiazem for bradycardia - Hold parameters in place Dispo: Await cardiology recs. Judson Quiñonez MD Clinical Quality Measures AMI/AHF: ASA po Prior to arrival: No DVT/VTE Risk/Contraindication: Risk Factor Score Per Nursin RFS Level Per Nursing on Admit: 2=Moderate JUDSON QUIÑONEZ MD April 21, 2017 09:58
--- NOTE | 2017-04-21 10:16 | Diagnostic Imaging Report ---
PROCEDURE: US Thyroid. TECHNIQUE: Multiple real-time grayscale images were obtained of the thyroid in various projections. INDICATION: Hypothyroidism. COMPARISON: No priors. FINDINGS: Right thyroid lobe 4.5 x 2.0 x 1.9 cm, left lobe 4.4 x 1.8 x 1.6 cm. Both lobes are within normal limits. No abnormal elevated color Doppler blood flow. There are multiple bilateral thyroid nodules predominantly solid some of which showing elements of intralesional cystic degeneration. The largest on the right is in the lower pole 2.6 x 1.8 x 1.7 cm with an upper pole nodule on the right measuring long axis of 1.3 cm. The largest mass on the left measures 1.0 x 2.0 x 1.3 cm. Additional 1-1.5 cm nodules at its mid and upper pole present. IMPRESSION: Multiple bilateral thyroid nodules predominately solid and showed varying degrees of elements of intralesional cystic degeneration. Their multiplicity and appearance is most suggestive of multiple adenomas and goiterous disease. The dominant mass in the lower pole of the right lobe shows some lobulation of its fairly well-defined borders as well as some coarse intralesional calcifications. I would suggest either short-term followup in 6-12 months versus consideration for needle sampling of that mass as further workup. Dictated by: Dictated on workstation # [id number]
[2017-04-21 12:00] VITALS: BP 130/78
--- NOTE | 2017-04-21 12:42 | Consultation-Cardiology ---
HPI-Cardiology Cardiology Consultation: Date of Consultation 04/21/17 Date of Admission Attending Physician Anita Lee DO Admitting Physician Amanda,Local Physician Consulting Physician Barber RDZ MD HPI: Chief Complaint: Atrial fibrillation This is a 76-year-old lady with history of lung cancer, paroxysmal atrial fibrillation, [id number] coronary artery disease, recent TIA. She presented with the complaints of shortness of breath and palpitations. She was found to be in atrial fibrillation. She continues to be on metoprolol and Eliquis. Overnight she was noted to have bradycardia with heart rates of 38 bpm. The patient complains of occasional dizziness. Review of Systems-Cardiology Review of Systems Constitutional: No As described under HPI, No no symptoms reported, No chills, No fever, No lightheadedness, No malaise, No tiredness, No weight loss, No weight gain, No other Eyes: No As described under HPI, No no symptoms reported, No blindness, No blurred vision, No contact lenses, No drainage, No decreased acuity, No foreign body sensation, No glasses, No inflammation, No pain, No photophobia, No previous injury, No shadows, No tunnel vision, No other, No vision change Ears/Nose/Throat: No As described under HPI, No no symptoms reported, No chronic hearing loss, No epistaxis, No ear discharge, No ear pain, No loose teeth, No mouth pain, No mouth swelling, No nasal drainage, No nose pain, No recent hearing loss, No throat pain, No throat swelling, No ulcerations, No other Respiratory: shortness of breath Cardiovascular: palpitations Gastrointestinal: No no symptoms reported, No As described under HPI, No abdomen distended, No abdominal pain, No blood streaked bowels, No constipation , No diarrhea, No difficulty swallowing, No nausea, No poor appetite, No poor fluid intake, No rectal bleeding, No vomiting, No other, No nausea/vomiting/ diarrhea, No stool coloration changes Genitourinary: No no symptoms reported, No As described under HPI, No burning, No dysuria, No discharge, No frequency, No flank pain, No hematuria, No incontinence, No pain, No urgency, No other, No urine frequency changes, No urine coloration changes Musculoskeletal: No no symptoms reported, No As describe under HPI, No back pain, No gout, No joint pain, No joint swelling, No muscle pain, No muscle stiffness, No neck pain, No other Skin: No no symptoms reported, No As described under HPI, No change in color, No change in hair/nails, No dryness, No lesions, No lumps, No rash, No other, No skin related problems, No ulcerations, No rash on exposed areas, No ulcerations on exposed areas All Other Systems Reviewed Negative Unless Noted: Yes (Negative excepted noted.) [id number]-Ncgjqb Hx Patient Social History Marrital Status: Alcohol Use: Denies Use Recreational Drug Use: No Smoking Status: Former Smoker Former smoker/When Quit: Mar 15, 1982 Type Used: Cigarettes 2nd Hand Smoke Exposure: No Recent Foreign Travel: No Recent Infectious Disease Expo: No Hospitalization with Isolation: Denies Physical Abuse Screen: No Sexual Abuse: No Immunizations Up To Date Date of Pneumonia Vaccine: Aug 17, 2013 Date of Influenza Vaccine: Sep 07, 2013 Past Medical History PMH As described under Assessment. Family Medical History Family History: Patient reports no known family medical history. Allergies and Home Medications Allergies Coded Allergies: Penicillins (Unverified Allergy, Mild, RASH, 09/24/10) RUPAL Inhibitors (Verified Allergy, Unknown, HIVES, 12/11/16) atorvastatin (Verified Allergy, Unknown, HIVES, 12/11/16) iodine (Verified Allergy, Unknown, HIVES, 12/11/16) Home Medications Albuterol Sulfate 18 Gm Hfa.aer.ad, 2 PUFF INH Q4H PRN for SHORTNESS OF BREATH, (Reported) Apixaban 5 Mg Tablet, 5 MG PO BID, (Reported) LAST FILLED #60 01-20-17 Aspirin 325 Mg Tablet.dr, 325 MG PO DAILY, (Reported) Budesonide/Formoterol Fumarate 10.2 Gm Hfa.aer.ad, 2 PUFF INH BID, (Reported) Diltiazem HCl 240 Mg Cap.er.24h, 240 MG PO DAILY, (Reported) Furosemide 20 Mg Tablet, 20 MG PO DAILY, (Reported) LAST FILLED #60 01-06-17 Metoprolol Tartrate 100 Mg Tablet, 100 MG PO BID, (Reported) Potassium Chloride 8 Meq Tablet.er, 8 MEQ PO DAILY, (Reported) Tiotropium [place] 4 Gm Mist.inhal, 2 PUFF IH DAILY, (Reported) Valsartan 80 Mg Tablet, 80 MG PO BID, (Reported) LAST FILLED #60 01-13-17 Physical Exam-Cardiology Physical Exam Vital Signs/I&O Vital Sign - Last 12Hours 04/21/17 04/21/17 04/21/17 04/21/17 01:00 04:00 08:00 08:20 Temp 98.0 97.7 Pulse 43 47 50 40 Resp 18 18 B/P (MAP) 110/56 133/60 Pulse Ox 98 97 04/21/17 12:00 Temp 97.6 Pulse 59 Resp 18 B/P (MAP) 130/78 Pulse Ox 98 Intake and Output 04/20/17 23:59 Intake Total 240 ml Output Total 0 ml Balance 240 ml Capillary Refill : Less Than 3 Seconds Constitutional: No appears stated age, No AAO x 3, No apparent distress, No PERRL, No well-developed, No well-nourished, No other HEENT: No PERRL, No normal ENT inspection, No TMs normal, No pharynx normal, No scleral icterus (R), No scleral icterus (L), No pale conjunctivae (R), No pale conjunctivae (L), No photophobia, No TM abnormal (R), No TM abnormal (L), No pharyngeal erythema, No tonsillar exudate, No other, No discharge, No EOMI, No hearing is well preserved, No hard of hearing, No oral hygience is good, No ulceration, No xanthelasmas are seen Neck: No non-tender, No full range of motion, No supple, No normal inspection, No carotid bruit, No limited range of motion, No lymphadenopathy (R), No lymphadenopathy (L), No tender lateral, No tender midline, No thyromegaly, No other, No carotid pulses are 2 + bilaterally, No with good upstrokes Respiratory: No accessory muscle use, No respiratory distress, No chest tender , No chest expansion is symmetric, No chest is bilaterally symmetric, No lungs clear to percussion, No lungs clear to auscultation, No crackles, No rhonchi, No rales, No stridor, No wheezing, No pleural rub, No other Cardiovascular: No regular rate-rhythm, irregularly irregular, No extra beats, No parasternal heave is noted, No JVD, No edema, No bradycardia, No tachycardia , No point of maximal impulse, No cardiac thrills are palpable, S1 and S2, No gallop/S3, No gallop/S4, No diastolic murmur, No systolic murmur, No friction rub, No click, No other Gastrointestinal: No tender, No soft, No round, No distended, No pulsatile mass , No organomegaly, No guarding, No rebound, No tenderness, No hernia, No mass, No audible bowel sounds, No abnormal bowel sounds, No abdominal bruits, No spleenomegaly, No other Rectal: deferred Extremities: No normal range of motion, No non-tender, No normal inspection, No pedal edema, No calf tenderness, No normal capillary refill, No pelvis stable , No calf tenderness, No inflammation, No pedal edema, No slow capillary refill , No swelling, No other, No abrasion, No clubbing, No cyanosis, No ecchymosis, No laceration, No no lower extremity edema bilateral, No significant edema, No tenderness, No wound Neurologic/Psychiatric: No hearing officer II-XII nml as tested, No no motor/sensory deficits, No alert, No normal mood/affect, No oriented x 3, No abnormal cerebellar tests, No abnormal hearing officer II-XII, No abnormal gait, No aphasia, No EOM palsy, No facial droop, No motor weakness, No sensory deficit, No depressed affect, No disoriented x 3, No other, No grossly intact, No power is 5/5 both on sides Skin: No normal color, No warm/dry, No cyanosis, No cool, No diaphoresis, No damp, No ecchymosis, No jaundice, No mottled, No pallor, No rash, No tattoos/ piercings, No ulcerations, No rash on exposed areas, No ulcerations on exposed areas, No other Data Review Labs Laboratory Tests 04/20/17 15:50: White Blood Count 7.8, Red Blood Count 4.56, Hemoglobin 13.3, Hematocrit 41, Mean Corpuscular Volume 90, Mean Corpuscular Hemoglobin 29, Mean Corpuscular Hemoglobin Concent 32, Red Cell Distribution Width 13.9, Platelet Count 348, Mean Platelet Volume 9.8, Neutrophils (%) (Auto) 79H, Lymphocytes (%) (Auto) 13 , Monocytes (%) (Auto) 6, Eosinophils (%) (Auto) 2, Basophils (%) (Auto) 0, Neutrophils # (Auto) 6.2, Lymphocytes # (Auto) 1.0, Monocytes # (Auto) 0.5, Eosinophils # (Auto) 0.2, Basophils # (Auto) 0.0, Sodium Level 138, Potassium Level 4.4, Chloride Level 105, Carbon Dioxide Level 17L, Anion Gap 16H, Blood Urea Nitrogen 23H, Creatinine 1.21, Estimat Glomerular Filtration Rate 43, BUN/ Creatinine Ratio 19, Glucose Level 112H, Calcium Level 9.8, Total Bilirubin 0.5 , Aspartate Amino Transf (AST/SGOT) 23, Alanine Aminotransferase (ALT/SGPT) 15, Alkaline Phosphatase 92, Troponin I < 0.30, Total Protein 7.9, Albumin 4.1, Free Thyroxine 1.33, TSH [place] Testing 0.02L 04/21/17 06:10: White Blood Count 5.7, Red Blood Count 4.00L, Hemoglobin 11.9, Hematocrit 37, Mean Corpuscular Volume 91, Mean Corpuscular Hemoglobin 30, Mean Corpuscular Hemoglobin Concent 33, Red Cell Distribution Width 13.8, Platelet Count 280, Mean Platelet Volume 10.1, Neutrophils (%) (Auto) 65, Lymphocytes (%) (Auto) 22 , Monocytes (%) (Auto) 8, Eosinophils (%) (Auto) 5, Basophils (%) (Auto) 0, Neutrophils # (Auto) 3.7, Lymphocytes # (Auto) 1.3, Monocytes # (Auto) 0.4, Eosinophils # (Auto) 0.3, Basophils # (Auto) 0.0, Sodium Level 139, Potassium Level 3.7, Chloride Level 107, Carbon Dioxide Level 20L, Anion Gap 12, Blood Urea Nitrogen 24H, Creatinine 0.93, Estimat Glomerular Filtration Rate 59, BUN/ Creatinine Ratio 26, Glucose Level 87, Calcium Level 9.1, Total Bilirubin 0.6, Aspartate Amino Transf (AST/SGOT) 18, Alanine Aminotransferase (ALT/SGPT) 13, Alkaline Phosphatase 77, Total Protein 6.5, Albumin 3.5 ECG Impression ECG Initial ECG Impression: Atrial Fibrillation A/P-Cardiology Assessment/Admission Diagnosis Paroxysmal atrial fibrillation with bradycardia History of Acute CHF, diastolic (per echocardiogram of 07-09-16, LVEF 65%) - clinically compensated Normal left ventricular size and systolic function. Estimated ejection fraction 65%. Diastolic dysfunction is suggested by Doppler. 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 Aortic valve sclerosis. No aortic stenosis. Estimated pulmonary artery pressure of 10 mmHg. Per echocardiogram of June by Dr. Kim Coronary artery disease, moderate in the left coronary system and moderate to moderately severe in the right coronary system on cardiac catheterization of . MPI of 01/17/16 did not show any significant ischemia and LVEF was 64%. 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 The patient is following with Dr Bradford of the Oncology services at [facility] History of hyperlipidemia being treated with statin therapy. Left bundle branch block. No evidence of any significant valvular heart disease on echocardiography of July 2013 Paroxysmal A. Fib, s/p elec cardioversion to sinus rhythm on09/06/13. Documented again on a visit of 05/20/14. Holter of 05/26/14 showed NSR with PACs and PVCs and episodes of PAF with ventricular rates upto 110 bpm and average vent rate 84 bpm. There was no VT or significant bradycardia. Presentation to ER on 03/02/15 with A fib/flutter with RVR, improved after addition of long- acting dilt to regimen Apixaban therapy for stroke prophylaxis Plan Atrial fibrillation with bradycardia: Symptomatic with dizziness. Will hold metoprolol. Since morning her heart rate has improved in the late 50s and early 60s. We'll do an event monitor for 30 days if she continues to have episodes of bradycardia with symptoms despite discontinuing metoprolol, then she 'll be a candidate for dual-chamber permanent pacemaker. She will continue Eliquis. History of diastolic heart failure: Compensated. Recent history of acute stroke: No further issues. Mild to moderate coronary artery disease: Continue outpatient medical therapy including statin. Follow-up with outpatient buck presser. Thank you for your consultation. Please call me if you have any questions. Roc Rdz MD, FACP, FACC, FSCAI, FHRS, CCDS Interventional Cardiology Cardiac Electrophysiology Vascular Medicine and Endovascular Interventions Clinical Quality Measures AMI/AHF: ASA po Prior to arrival: No DVT/VTE Risk/Contraindication: Risk Factor Score Per Nursin RFS Level Per Nursing on Admit: 2=Moderate Barber RDZ MD April 21, 2017 12:42 pm
[2017-04-21 16:00] VITALS: BP 135/65
[2017-04-21 20:02] VITALS: BP 149/77
[2017-04-22] VITALS (29 sets, daily range): BP systolic 105–170; BP diastolic 54–125
[2017-04-22] MEDS: CATHETER FLUSH 10 ML SYR IV SCH ×3 (04:00→22:00)
[2017-04-22] MEDS: NS IV 1000 ML 1,000 ML IV SCH ×3 (04:21→20:07)
[2017-04-22] MEDS: LORazepam INJ 2 MG/ML (ATIVAN) VIAL IV PRN (04:51)
[2017-04-22] MEDS ORDERED: amLODIPine 10 MG (NORVASC) TAB PO ONE (05:15)
[2017-04-22] MEDS ORDERED: meTOprolol 5 MG/5 ML (LOPRESSOR) VIAL IV ONE ×2 (05:15→18:00)
[2017-04-22] MEDS ORDERED: NITROGLYCERIN SUBLINGUAL 0.4 MG TAB (NITROSTAT) SL ONE ×2 (05:24→05:45)
[2017-04-22 05:28] LABS: BASOPHILS % (AUTO) 0 % (0-10); EOSINOPHILS # (AUTO) 0.3 10^3/uL (0.0-0.3); EOSINOPHILS % (AUTO) 5 % (0-10); LYMPHOCYTES # (AUTO) 1.6 X 10^3 (1.0-4.0); LYMPHOCYTES % (AUTO) 29 % (12-44); MEAN CORPUSCULAR HEMOGLOBIN 30 PG (25-34); MEAN CORPUSCULAR HGB CONC 33 G/DL (32-36); MEAN CORPUSCULAR VOLUME 90 FL (80-99); MEAN PLATELET VOLUME 9.6 FL (7.4-10.4); MONOCYTES # (AUTO) 0.5 X 10^3 (0.0-1.0); MONOCYTES % (AUTO) 10 % (0-12); NEUTROPHILS # (AUTO) 3.1 X 10^3 (1.8-7.8); NEUTROPHILS % (AUTO) 56 % (42-75); PLATELET COUNT 280 10^3/uL (130-400); RED CELL DISTRIBUTION WIDTH 13.7 % (10.0-14.5); WHITE BLOOD COUNT 5.5 10^3/uL (4.3-11.0)
[2017-04-22] MEDS ORDERED: NITROGLYCERIN DRIP 25 MG/D5W 250 ML IV ONE (05:28)
[2017-04-22 05:46] LABS: BAND NEUTROPHILS 0 %; BASOPHILS % (MANUAL) 0 %; EOSINOPHILS % (MANUAL) 6 %; LYMPHOCYTES % (MANUAL) 18 %; NEUTROPHILS % (MANUAL) 62 %; REACTIVE LYMPHOCYTES 9 %
[2017-04-22] MEDS: NITROGLYCERIN DRIP 25 MG/D5W 250 ML IV SCH (05:46)
[2017-04-22 05:48] LABS: ALANINE AMINOTRANSFERASE 14 U/L (0-55); ALBUMIN 3.9 G/DL (3.2-4.5); ANION GAP 13 MMOL/L (5-14); ASPARTATE AMINO TRANSFERASE 19 U/L (5-34); BILIRUBIN,TOTAL 0.5 MG/DL (0.1-1.0); BLOOD UREA NITROGEN 18 MG/DL (7-18); BUN/CREATININE RATIO 21; CALCIUM 9.2 MG/DL (8.5-10.1); CARBON DIOXIDE 17 MMOL/L (21-32); CHLORIDE 109 MMOL/L (98-107); CREATININE SERUM 0.87 MG/DL (0.60-1.30); GFR ESTIMATED > 60; GLUCOSE 97 MG/DL (70-105); POTASSIUM 3.4 MMOL/L (3.6-5.0); SODIUM 139 MMOL/L (135-145); TOTAL PROTEIN 7.2 G/DL (6.4-8.2)
[2017-04-22] MEDS ORDERED: methylPREDNISolone 125 MG (Solu-MEDROL) VIAL IVP ONE (06:15)
[2017-04-22] MEDS ORDERED: diphenhydrAMINE 50 MG/ML INJ (BENADRYL) IVP ONE (06:15)
[2017-04-22] MEDS ORDERED: NS 100 ML (IVPB) BAG IV ONE (07:00)
[2017-04-22] MEDS ORDERED: IOHEXOL 350 MG/ML 150 ML (OMNIPAQUE 350) VIAL IV ONE (07:00)
--- NOTE | 2017-04-22 07:29 | Diagnostic Imaging Report ---
INDICATION: Chest pain COMPARISON: 04/20/2017 FINDINGS: Single frontal view of the chest obtained. Heart size and pulmonary vasculature are stable. There is no pneumothorax or pleural fluid demonstrated. Irregular coarse opacities seen within the right midlung persists, fairly similar to the recent prior study. There are postoperative changes demonstrated here as well. This may represent underlying scarring that is nonspecific. The lungs are otherwise clear. No significant new abnormality is demonstrated in the chest. IMPRESSION: Overall, fairly stable chest compared to the recent prior study. The irregular opacity in the right midlung with adjacent postoperative findings are stable. This could be related to some underlying scarring or residual infiltrate. No new abnormality is seen. Dictated by: Dictated on workstation # [id number]
[2017-04-22] MEDS ORDERED: KCL 20 MEQ TAB (K-DUR) PO NR (07:45)
--- NOTE | 2017-04-22 08:02 | Diagnostic Imaging Report ---
PROCEDURE: CT angiography of the chest with contrast. TECHNIQUE: Multiple contiguous axial images were obtained through the chest after uneventful bolus administration of intravenous contrast. Reconstructed CTA MIP acquisitions were also performed. INDICATION: History of lung cancer. Chest pain. Possible aortic dissection. COMPARISON: 07/08/2016 FINDINGS: There is no evidence of pulmonary embolus or thoracic aortic dissection. There is mild atherosclerosis of the thoracic aorta without aneurysm. Coronary artery calcifications are noted. There are multiple low-density nodules with calcifications in the thyroid gland, nonspecific. There is no significant mediastinal, hilar or axillary adenopathy. There is no pneumothorax. Although this is moderately decreased from the prior study. Some coarse linear areas of scarring or atelectasis are again noted. No significant new pulmonary parenchymal abnormality is suspected. There is patchy bilateral basilar atelectasis. There are postoperative changes of the right lower lobe. There is an ill-defined 3.2 cm x 2.7 cm parenchymal density associated with the postoperative changes best seen on series 4 image 90, which is unchanged from the prior CT. Some minimal pleural fluid here. IMPRESSION: 1. No evidence of thoracic aortic dissection or other acute vascular abnormality. 2. Postoperative findings in the right chest with irregular parenchymal density along the suture line similar to the prior exam. Interval decrease in size of a small right pleural effusion 3. No significant new abnormality is suspected when compared to the prior CT. Dictated by: Dictated on workstation # [id number]
--- NOTE | 2017-04-22 08:10 | Pulmonary Consultation ---
History of Present Illness History of Present Illness Date of Consultation 04/22/17 08:05 Date of Admission History of Present Illness 76yo with hx of lung cancer s/p lobectomy, radiation therapy presented to ED secondary to worsening palpitaions and SOB especially with exertion. Pt does have a hx of Afib and cardiology is consulted. She was in AFIB RVR upon ED admission. I am consulted for ICU management. Labs and radiology reviewed. Allergies and Home Medications Allergies Coded Allergies: Penicillins (Unverified Allergy, Mild, RASH, 09/24/10) RUPAL Inhibitors (Verified Allergy, Unknown, HIVES, 12/11/16) atorvastatin (Verified Allergy, Unknown, HIVES, 12/11/16) iodine (Verified Allergy, Unknown, HIVES, 12/11/16) Home Medications Albuterol Sulfate 18 Gm Hfa.aer.ad, 2 PUFF INH Q4H PRN for SHORTNESS OF BREATH, (Reported) Apixaban 5 Mg Tablet, 5 MG PO BID, (Reported) LAST FILLED #60 01-20-17 Aspirin 325 Mg Tablet.dr, 325 MG PO DAILY, (Reported) Budesonide/Formoterol Fumarate 10.2 Gm Hfa.aer.ad, 2 PUFF INH BID, (Reported) Diltiazem HCl 240 Mg Cap.er.24h, 240 MG PO DAILY, (Reported) Furosemide 20 Mg Tablet, 20 MG PO DAILY, (Reported) LAST FILLED #60 01-06-17 Metoprolol Tartrate 100 Mg Tablet, 100 MG PO BID, (Reported) Potassium Chloride 8 Meq Tablet.er, 8 MEQ PO DAILY, (Reported) Tiotropium Gallion 4 Gm Mist.inhal, 2 PUFF IH DAILY, (Reported) Valsartan 80 Mg Tablet, 80 MG PO BID, (Reported) LAST FILLED #60 01-13-17 Past Gqjonib-Csagod-Sfivbz Hx Patient Social History Alcohol Use: Denies Use Recreational Drug Use: No Smoking Status: Former Smoker Type Used: Cigarettes Former Smoker/When Quit: Mar 15, 1982 2nd Hand Smoke Exposure: No Recent Foreign Travel: No Contact w/Someone Who Travel: No Recent Infectious Disease Expo: No Recent Hopitalizations: Yes Physical Abuse Screen: No Sexual Abuse: No Immunizations Up To Date Date of Pneumonia Vaccine: Aug 17, 2013 Date of Influenza Vaccine: Sep 07, 2013 Seasonal Allergies Seasonal Allergies: No Surgeries HX Surgeries: Yes (CARDIAC CATH; RIGHT LUNG RESECTION/TUMOR REMOVAL) Surgeries: Cardiac, Gallbladder, Hysterectomy, Lobectomy, Tonsillectomy Respiratory Hx Respiratory Disorders: Yes (+ 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, s/p lobectomy) Respiratory Disorders: COPD, Emphysema Cardiovascular Hx Cardiac Disorders: Yes (LBBB, LVH, CHF) Cardiac Disorders: Atrial Fibrillation, Coronary Artery Disease, Hypertension, Palpitations Neurological Hx Neurological Disorders: Yes Neurological Disorders: TIA Reproductive System Hx Reproductive Disorders: No Sexually Transmitted Disease: No HIV/AIDS: No RIDE ATTENDANT History: Menopausal Genitourinary Hx Genitourinary Disorders: Yes Genitourinary Disorders: Bladder Infection Gastrointestinal Hx Gastrointestinal Disorders: Yes (S/P SOCORRO) Gastrointestinal Disorders: Gall Bladder Disease (s/p cholectomy) Musculoskeletal Hx Musculoskeletal Disorders: No Musculoskeletal Disorders: Arthritis, Chronic Back Pain Endocrine Hx Endocrine Disorders: Yes Endocrine Disorders: Hyperthyroidism HEENT HX ENT Disorders: Yes HEENT Disorders: Cataract Cancer Hx Cancer: Yes Cancer: Lung Psychosocial Hx Psychiatric Problems: Yes Behavioral Health Disorders: Anxiety, Depression Integumentary HX Skin/Integumentary Disorder: No Blood Transfusions Hx Blood Disorders: No Adverse Reaction to a Blood Tr: No Reviewed Nursing Assessment Reviewed/Agree w Nursing PMH: Yes Family Medical History Significant Family History: No Pertinent Family Hx Family Medial History: Patient reports no known family medical history. Review of Systems Constitutional: Malaise, Sweats, Weakness Eyes: No: Conjunctivae inflammation, Eyelid inflammation, Other, Pain, Redness , Vision change ENT: Nose congestion, No: Ear discharge, Ear pain, Mouth pain, Mouth swelling, Nose discharge, Nose pain, Other, Throat pain, Throat swelling Respiratory: Cough, Dry, SOB with excertion, Shortness of breath Cardiovascular: Chest Pain, Lt Headedness, Orthopnea, Palpitations, Paroxysmal Noc. Dyspnea Gastrointestinal: No: Abdominal Pain, Constipation, Diarrhea, Hematochezia, Melena, Nausea, Other, Vomiting Genitourinary: No Dysuria, No Frequency, No Incontinence, No Hematuria, No Retention, No Other Neurological: Confusion, Incoordination Exam Exam Vital Signs Date Time Temp Pulse Resp B/P (MAP) Pulse Ox O2 Delivery O2 Flow Rate FiO2 04/22/17 07:40 3.00 04/22/17 06:00 80 19 135/69 99 04/22/17 05:46 101 137/84 04/22/17 05:33 108 04/22/17 05:33 108 20 137/84 99 04/22/17 04:19 96.7 96 18 160/81 96 04/22/17 01:00 68 04/22/17 00:14 97.0 86 20 166/75 96 04/21/17 20:02 98.1 94 18 149/77 99 04/21/17 19:00 91 04/21/17 16:00 98.5 76 18 135/65 97 04/21/17 12:00 97.6 59 18 130/78 98 04/21/17 08:20 40 I & O 04/22/17 07:00 Intake Total 2950 ml Output Total 1950 ml Balance 1000 ml General Appearance: No Apparent Distress, WD/WN HEENT: PERRL/EOMI, No Scleral Icterus (L), No Scleral Icterus (R) Neck: Non Tender, Supple, No Thyromegaly Respiratory: Chest Non Tender, Normal Breath Sounds, No Accessory Muscle Use, No Respiratory Distress Cardiovascular: No No JVD, No No Murmur, Bradycardia Capillary Refill: Less Than 3 Seconds Extremity: Normal Capillary Refill, No Calf Tenderness, No Pedal Edema Neurologic/Psychiatric: Alert, Oriented x3, Other (tangential) Skin: Normal Color, Warm/Dry Results Lab Laboratory Tests 04/20/17 15:50 04/21/17 06:10 04/22/17 05:18 Assessment/Plan Assessment/Plan Afib RVR -Cardilogy consulted Hx of lung cancer -monitor 254 Clinical Quality Measures AMI/AHF: ASA po Prior to arrival: No DVT/VTE Risk/Contraindication: Risk Factor Score Per Nursin RFS Level Per Nursing on Admit: 2=Moderate DAVION ZAMORA DO April 22, 2017 08:10
[2017-04-22] MEDS: APIXABAN 5 MG (ELIQUIS) TABLET PO SCH ×2 (08:30→21:02)
--- NOTE | 2017-04-22 10:10 | Progress Note-Hospitalist ---
Progress Note HPI/CC on Admission Pt is a 76yoCF with PMH of a-fib, subclinical hyperthyroidism, and lung cancer s /p lobectomy and radiation who presented to the ER with CC of VIRK. She has been seen in the ER multiple times for palpitations mostly recently 04/13 where her metoprolol dose was increased. She suddenly felt short of breath yesterday and felt her "heart was jumping out of her chest.' It improved with rest on the drive her but then worsened with ambulation to the cafeteria. She was found to be in a-fib with RVR and admitted for further management as she was persistently symptomatic. Progress Notes/Assess & Plan Date Seen 04/22/17 Diagonsis/Assessment & Plan Patient is doing much better but transferred up to the ICU for atrophic fibrillation with rapid ventricular response Currently stable but weak and overall Patient appears to be very frail and chronically ill will likely need disposition prior to discharge Prognosis is poor given the advanced comorbidity she has including lung cancer that she reports she is in remission No fever, vital signs stable, pleasant, flat affect, frail, chronically ill Irregular irregular rhythm with tachycardia, clear to auscultation bilaterally diminished in the bases No edema Laboratory Tests 04/22/17 05:18 A-fib with RVR -required transfer to ICU last night per Cardiology Dyspnea- CT chest angiogram revealed no PE Subclinical hyperthyroidism - TSH low but normal T4 - Will get thyroid usg when stable - No indicate for medications but will need to follow with her PCP for monitoring h/o Lung Ca - reports in remission? HTN, labile Hypokalemia Plan: Appreciate Cardiology and Pulmonology Monitor labs OOB if possible Prognosis is poor PCP is on [facility] Change to in-pt MARIA GUADALUPE VELASQUEZ DO April 22, 2017 10:10
--- NOTE | 2017-04-22 12:44 | Cardiology Progress Note ---
Cardiology SOAP Progress Note Subjective: events of overnight noted. Patient is not having any symptoms on my history. She denies any chest pain. Objective: I&O/Vital Signs Vital Sign - Last 12Hours 04/22/17 04/22/17 04/22/17 04/22/17 01:00 04:19 05:33 05:33 Temp 96.7 Pulse 68 96 108 108 Resp 18 20 B/P (MAP) 160/81 137/84 Pulse Ox 96 99 04/22/17 04/22/17 04/22/17 04/22/17 05:46 06:00 07:00 07:00 Pulse 101 80 95 96 Resp 19 23 B/P (MAP) 137/84 135/69 154/82 Pulse Ox 99 99 04/22/17 04/22/17 04/22/17 04/22/17 07:40 08:00 08:00 08:30 Pulse 97 Resp 21 B/P (MAP) 105/54 102/59 Pulse Ox 99 99 O2 Flow Rate 3.00 2.00 04/22/17 04/22/17 04/22/17 04/22/17 08:35 09:00 09:31 10:00 Pulse 98 98 Resp 19 17 B/P (MAP) 115/62 124/66 118/65 123/67 Pulse Ox 99 99 O2 Flow Rate 2.00 2.00 04/22/17 04/22/17 04/22/17 04/22/17 11:00 11:53 11:58 12:00 Temp 98.9 Pulse 101 100 Resp 19 20 B/P (MAP) 154/78 129/80 Pulse Ox 99 99 100 99 O2 Flow Rate 2.00 2.00 2.00 2.00 Intake and Output 04/22/17 00:00 Intake Total 1250 ml Output Total 750 ml Balance 500 ml Weight (Pounds): 147 Weight (Ounces): 7.0 Weight (Calculated Kilograms): [id number] Constitutional: No appears stated age, No AAO x 3, No apparent distress, No PERRL, No well-developed, No well-nourished, No other Respiratory: No accessory muscle use, No respiratory distress, No chest tender , No chest expansion is symmetric, No chest is bilaterally symmetric, No lungs clear to percussion, No lungs clear to auscultation, No crackles, No rhonchi, No rales, No stridor, No wheezing, No pleural rub, No other Cardiovascular: No regular rate-rhythm, irregularly irregular, No extra beats, No parasternal heave is noted, No JVD, No edema, No bradycardia, No tachycardia , No point of maximal impulse, No cardiac thrills are palpable, S1 and S2, No gallop/S3, No gallop/S4, No diastolic murmur, No systolic murmur, No friction rub, No click, No other Gastrointestional: No tender, No soft, No round, No distended, No pulsatile mass, No organomegaly, No guarding, No rebound, No tenderness, No hernia, No mass, No audible bowel sounds, No abnormal bowel sounds, No abdominal bruits, No spleenomegaly, No other Extremities: No normal range of motion, No non-tender, No normal inspection, No pedal edema, No calf tenderness, No normal capillary refill, No pelvis stable , No calf tenderness, No inflammation, No pedal edema, No slow capillary refill , No swelling, No other, No abrasion, No clubbing, No cyanosis, No ecchymosis, No laceration, No no lower extremity edema bilateral, No significant edema, No tenderness, No wound Neurologic/Psychiatric: No patient observation assistant II-XII nml as tested, No no motor/sensory deficits, No alert, No normal mood/affect, No oriented x 3, No abnormal cerebellar tests, No abnormal patient observation assistant II-XII, No abnormal gait, No aphasia, No EOM palsy, No facial droop, No motor weakness, No sensory deficit, No depressed affect, No disoriented x 3, No other, No grossly intact, No power is 5/5 both on sides Skin: No normal color, No warm/dry, No cyanosis, No cool, No diaphoresis, No damp, No ecchymosis, No jaundice, No mottled, No pallor, No rash, No tattoos/ piercings, No ulcerations, No rash on exposed areas, No ulcerations on exposed areas, No other Results/Procedures: Labs Laboratory Tests 04/22/17 05:18: White Blood Count 5.5, Red Blood Count 4.20L, Hemoglobin 12.5, Hematocrit 38, Mean Corpuscular Volume 90, Mean Corpuscular Hemoglobin 30, Mean Corpuscular Hemoglobin Concent 33, Red Cell Distribution Width 13.7, Platelet Count 280, Mean Platelet Volume 9.6, Neutrophils (%) (Auto) 56, Lymphocytes (%) (Auto) 29, Monocytes (%) (Auto) 10, Eosinophils (%) (Auto) 5, Basophils (%) (Auto) 0, Neutrophils # (Auto) 3.1, Lymphocytes # (Auto) 1.6, Monocytes # (Auto) 0.5, Eosinophils # (Auto) 0.3, Basophils # (Auto) 0.0, Neutrophils % (Manual) 62, Lymphocytes % (Manual) 18, Monocytes % (Manual) 5, Eosinophils % (Manual) 6, Basophils % (Manual) 0, Band Neutrophils 0, Reactive Lymphocytes 9, Blood Morphology Comment NORMAL, Sodium Level 139, Potassium Level 3.4L, Chloride Level 109H, Carbon Dioxide Level 17L, Anion Gap 13, Blood Urea Nitrogen 18, Creatinine 0.87, Estimat Glomerular Filtration Rate > 60, BUN/Creatinine Ratio 21, Glucose Level 97, Calcium Level 9.2, Total Bilirubin 0.5, Aspartate Amino Transf (AST/SGOT) 19, Alanine Aminotransferase (ALT/SGPT) 14, Alkaline Phosphatase 87, Troponin I < 0.30, Total Protein 7.2, Albumin 3.9 04/22/17 11:38: Troponin I < 0.30 A/P: Assessment/Dx: Paroxysmal atrial fibrillation with bradycardia severe chest pain with significantly increased blood pressure this morning. History of Acute CHF, diastolic (per echocardiogram of 07-09-16, LVEF 65%) - clinically compensated Normal left ventricular size and systolic function. Estimated ejection fraction 65%. Diastolic dysfunction is suggested by Doppler. 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 Aortic valve sclerosis. No aortic stenosis. Estimated pulmonary artery pressure of 10 mmHg. Per echocardiogram of June by Dr. Kim Coronary artery disease, moderate in the left coronary system and moderate to moderately severe in the right coronary system on cardiac catheterization of . MPI of 01/17/16 did not show any significant ischemia and LVEF was 64%. 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 The patient is following with Dr Bradford of the Oncology services at [facility] History of hyperlipidemia being treated with statin therapy. Left bundle branch block. No evidence of any significant valvular heart disease on echocardiography of July 2013 Paroxysmal A. Fib, s/p elec cardioversion to sinus rhythm on09/06/13. Documented again on a visit of 05/20/14. Holter of 05/26/14 showed NSR with PACs and PVCs and episodes of PAF with ventricular rates upto 110 bpm and average vent rate 84 bpm. There was no VT or significant bradycardia. Presentation to ER on 03/02/15 with A fib/flutter with RVR, improved after addition of long- acting dilt to regimen Apixaban therapy for stroke prophylaxis Plan: Atrial fibrillation with bradycardia: Symptomatic with dizziness. Will hold metoprolol. Since morning her heart rate has improved in the late 50s and early 60s. We'll do an event monitor for 30 days if she continues to have episodes of bradycardia with symptoms despite discontinuing metoprolol, then she 'll be a candidate for dual-chamber permanent pacemaker. She will continue Eliquis. severe chest pain this morning with significantly elevated blood pressure; atrial fibrillation with rapid ventricular rate. CT chest angiography was negative for PE and aortic dissection. First troponin was negative. She will require nuclear stress test tomorrow. EKG shows atrial fibrillation with left bundle branch block; this is not a new left bundle branch block. she was started on a nitro drip. Blood pressure much better today. I will start Norvasc 10 mg daily. Discontinue nitro drip. History of diastolic heart failure: Compensated. Recent history of acute stroke: No further issues. Mild to moderate coronary artery disease: Continue outpatient medical therapy including statin. stress test tomorrow. Follow-up with outpatient properties supervisor. Thank you for your consultation. Please call me if you have any questions. Roc Rdz MD, FACP, FACC, FSCAI, FHRS, CCDS Interventional Cardiology Cardiac Electrophysiology Vascular Medicine and Endovascular Interventions Clinical Quality Measures AMI/AHF: ASA po Prior to arrival: Barber Cormier MD April 22, 2017 12:44 pm
[2017-04-22] MEDS ORDERED: ALPRAZolam 0.25 MG (XANAX) TAB PO SCH (22:00)
[2017-04-22] MEDS ORDERED: DILTIAZEM 100 MG/VIAL (CARDIZEM) ADD-VANTAGE IV ONE (22:01)
[2017-04-22] MEDS ORDERED: SODIUM CHLORIDE (ADD-VANTAGE) 100 ML IV ONE (22:02)
[2017-04-22] MEDS ORDERED: DILTIAZEM DRIP 100 MG in SODIUM CHLORIDE (ADD-VANTAGE) 100 ML IV SCH (22:15)
[2017-04-22] MEDS ORDERED: VALSARTAN 80 MG (DIOVAN) TAB PO ONE (22:15)
[2017-04-23] VITALS (42 sets, daily range): BP systolic 122–163; BP diastolic 70–99
[2017-04-23] MEDS: NS IV 1000 ML 1,000 ML IV SCH ×2 (04:29→12:25)
[2017-04-23 04:43] LABS: BASOPHILS % (AUTO) 0 % (0-10); EOSINOPHILS % (AUTO) 0 % (0-10); LYMPHOCYTES # (AUTO) 0.6 X 10^3 (1.0-4.0); LYMPHOCYTES % (AUTO) 6 % (12-44); MEAN CORPUSCULAR HEMOGLOBIN 30 PG (25-34); MEAN CORPUSCULAR HGB CONC 33 G/DL (32-36); MEAN CORPUSCULAR VOLUME 91 FL (80-99); MONOCYTES # (AUTO) 0.5 X 10^3 (0.0-1.0); MONOCYTES % (AUTO) 5 % (0-12); NEUTROPHILS # (AUTO) 8.7 X 10^3 (1.8-7.8); NEUTROPHILS % (AUTO) 89 % (42-75); PLATELET COUNT 259 10^3/uL (130-400); RED BLOOD COUNT 3.78 10^6/uL (4.35-5.85); RED CELL DISTRIBUTION WIDTH 13.8 % (10.0-14.5); WHITE BLOOD COUNT 9.9 10^3/uL (4.3-11.0)
[2017-04-23 05:16] LABS: ANION GAP 10 MMOL/L (5-14); BLOOD UREA NITROGEN 21 MG/DL (7-18); BUN/CREATININE RATIO 26; CALCIUM 9.2 MG/DL (8.5-10.1); CARBON DIOXIDE 18 MMOL/L (21-32); CHLORIDE 110 MMOL/L (98-107); CREATININE SERUM 0.81 MG/DL (0.60-1.30); GFR ESTIMATED > 60; GLUCOSE 125 MG/DL (70-105); MAGNESIUM 1.6 MG/DL (1.8-2.4); POTASSIUM 4.4 MMOL/L (3.6-5.0); SODIUM 138 MMOL/L (135-145)
[2017-04-23 05:32] LABS: ANISOCYTOSIS SLIGHT; BAND NEUTROPHILS 0 %; BASOPHILS % (MANUAL) 0 %; EOSINOPHILS % (MANUAL) 0 %; LYMPHOCYTES % (MANUAL) 4 %; MICROCYTOSIS SLIGHT; NEUTROPHILS % (MANUAL) 90 %
[2017-04-23] MEDS: NITROGLYCERIN DRIP 25 MG/D5W 250 ML IV SCH (05:45)
[2017-04-23] MEDS: KCL 20 MEQ TAB (K-DUR) PO SCH (06:00)
[2017-04-23] MEDS ORDERED: POTASSIUM CL 10MEQ/50ML IVPB 50 ML IV SCH (06:00)
[2017-04-23] MEDS ORDERED: MAGNESIUM 1 GM/100 ML IVPB 100 ML IV SCH (06:00)
[2017-04-23] MEDS: CATHETER FLUSH 10 ML SYR IV SCH ×2 (06:00→14:27)
[2017-04-23] MEDS: MAGNESIUM 1 GM/100 ML IVPB 100 ML IV SCH ×2 (06:01→07:23)
--- NOTE | 2017-04-23 07:16 | Pulmonary Progress Note ---
Subjective Subjective/Events-last exam Pt is still on Cardizem she has no complaints. Exam Exam Vital Signs Date Time Temp Pulse Resp B/P (MAP) Pulse Ox O2 Delivery O2 Flow Rate FiO2 04/23/17 06:45 99 17 131/76 99 2.00 04/23/17 06:30 101 19 139/79 99 2.00 04/23/17 06:15 101 18 147/78 99 2.00 04/23/17 06:00 101 19 148/78 99 2.00 04/23/17 05:45 101 17 143/80 98 2.00 04/23/17 05:30 101 18 138/75 99 2.00 04/23/17 05:15 98 18 144/75 99 2.00 04/23/17 05:00 101 17 141/75 100 2.00 04/23/17 04:45 101 15 138/72 98 2.00 04/23/17 04:30 102 8 151/81 99 2.00 04/23/17 04:15 101 8 153/75 99 2.00 04/23/17 04:00 97.0 99 16 154/83 99 2.00 04/23/17 04:00 100 2.00 04/23/17 03:45 100 12 142/75 99 2.00 04/23/17 03:30 101 18 136/74 99 2.00 04/23/17 03:15 101 18 134/72 99 2.00 04/23/17 03:00 100 16 137/73 98 2.00 04/23/17 02:45 101 6 130/77 98 2.00 04/23/17 02:30 101 21 122/93 95 2.00 04/23/17 02:15 99 6 128/71 94 2.00 04/23/17 02:00 100 11 137/73 96 2.00 04/23/17 01:45 99 24 144/71 95 2.00 04/23/17 01:30 99 20 144/71 96 2.00 04/23/17 01:15 99 20 154/70 99 2.00 04/23/17 01:00 100 04/23/17 01:00 98 18 141/76 99 2.00 04/23/17 00:45 100 19 142/73 99 2.00 04/23/17 00:30 103 18 146/74 100 2.00 5/30/17 00:15 98 19 136/75 98 2.00 04/23/17 00:00 97.4 96 18 141/77 98 2.00 04/23/17 00:00 100 2.00 04/22/17 23:45 100 17 144/74 100 2.00 04/22/17 23:30 99 18 135/75 98 2.00 04/22/17 23:15 101 25 146/76 99 2.00 04/22/17 23:00 98 19 131/69 98 2.00 04/22/17 22:45 100 19 126/65 98 2.00 04/22/17 22:30 99 23 143/69 98 2.00 04/22/17 22:15 120 14 149/81 98 2.00 04/22/17 22:13 115 27 147/98 99 2.00 04/22/17 22:00 144 11 170/81 99 2.00 04/22/17 21:45 111 16 170/81 99 2.00 04/22/17 21:30 130 56 154/125 98 2.00 04/22/17 21:00 100 22 132/74 99 3.00 04/22/17 20:53 86 04/22/17 20:00 98.6 99 16 146/81 100 3.00 04/22/17 20:00 100 2.00 04/22/17 19:00 110 25 167/79 100 3.00 04/22/17 19:00 117 04/22/17 18:00 106 25 145/96 100 2.00 04/22/17 17:00 98 16 151/78 100 2.00 04/22/17 16:05 100 2.00 04/22/17 16:05 98.4 100 2.00 04/22/17 16:00 98 17 130/71 99 2.00 04/22/17 15:00 95 17 134/81 99 2.00 04/22/17 14:00 101 16 125/78 99 2.00 04/22/17 13:00 100 17 138/78 100 2.00 04/22/17 13:00 100 04/22/17 12:00 100 20 129/80 99 2.00 04/22/17 11:58 98.9 100 2.00 04/22/17 11:53 99 2.00 04/22/17 11:00 101 19 154/78 99 2.00 04/22/17 10:00 98 17 123/67 99 2.00 04/22/17 09:31 118/65 04/22/17 09:00 98 19 124/66 99 2.00 04/22/17 08:35 115/62 04/22/17 08:30 102/59 04/22/17 08:00 99 2.00 04/22/17 08:00 97 21 105/54 99 04/22/17 08:00 98.3 2.00 04/22/17 07:40 3.00 I & O 04/23/17 07:00 Intake Total 2880 ml Output Total 2550 ml Balance 330 ml General Appearance: No Apparent Distress, WD/WN HEENT: PERRL/EOMI, No Scleral Icterus (L), No Scleral Icterus (R) Neck: Non Tender, Supple, No Thyromegaly Respiratory: Chest Non Tender, Normal Breath Sounds, No Accessory Muscle Use, No Respiratory Distress Cardiovascular: No No JVD, No No Murmur, Bradycardia Capillary Refill: Less Than 3 Seconds Extremity: Normal Capillary Refill, No Calf Tenderness, No Pedal Edema Neurologic/Psychiatric: Alert, Oriented x3, Other (tangential) Skin: Normal Color, Warm/Dry Results Lab Laboratory Tests 04/22/17 05:18 04/23/17 04:15 Assessment/Plan Assessment/Plan Afib RVR -Cardilogy consulted ?hyperthyriod -hospitalist management Hx of lung cancer - CT scan shows irregular mass - possibly secondary to surgical changes -Pt will need out patient F/u 232 Clinical Quality Measures AMI/AHF: ASA po Prior to arrival: No DVT/VTE Risk/Contraindication: Risk Factor Score Per Nursin RFS Level Per Nursing on Admit: 2=Moderate DAVION ZAMORA DO April 23, 2017 07:16
--- NOTE | 2017-04-23 08:01 | Diagnostic Imaging Report ---
INDICATION: Shortness of breath. Portable chest 5:10 AM FINDINGS: Heart size and pulmonary vascularity are normal. There is a focal area of consolidation in the right lower lung. Left lung is clear. IMPRESSION: Focal area of consolidation right lower lung approximately 3.5 cm in diameter. This appears similar to the previous days comparison exam. Dictated by: Dictated on workstation # [id number]
[2017-04-23] MEDS ORDERED: amLODIPine 10 MG (NORVASC) TAB PO SCH ×2 (09:00)
[2017-04-23] MEDS ORDERED: REGADENOSON 0.4 MG/5 ML SYR (LEXISCAN) IV ONE ×2 (09:07→09:45)
--- NOTE | 2017-04-23 09:13 | Progress Note-Cardiology ---
Cardiology SOAP Progress Note Subjective: C/O feeling generally unwell. C/O back pain. Anxious. No c/o CP. C/O palpitations and dyspnea. Objective: I&O/Vital Signs Vital Sign - Last 12Hours 04/23/17 04/23/17 04/23/17 04/23/17 02:15 02:30 02:45 03:00 Pulse 99 101 101 100 Resp 6 21 6 16 B/P (MAP) 128/71 122/93 130/77 137/73 Pulse Ox 94 95 98 98 O2 Flow Rate 2.00 2.00 2.00 2.00 04/23/17 04/23/17 04/23/17 04/23/17 03:15 03:30 03:45 04:00 Pulse 101 101 100 Resp 18 18 12 B/P (MAP) 134/72 136/74 142/75 Pulse Ox 99 99 99 100 O2 Flow Rate 2.00 2.00 2.00 2.00 04/23/17 04/23/17 04/23/17 04/23/17 04:00 04:15 04:30 04:45 Temp 97.0 Pulse 99 101 102 101 Resp 16 8 8 15 B/P (MAP) 154/83 153/75 151/81 138/72 Pulse Ox 99 99 99 98 O2 Flow Rate 2.00 2.00 2.00 2.00 04/23/17 04/23/17 04/23/17 04/23/17 05:00 05:15 05:30 05:45 Pulse 101 98 101 101 Resp 17 18 18 17 B/P (MAP) 141/75 144/75 138/75 143/80 Pulse Ox 100 99 99 98 O2 Flow Rate 2.00 2.00 2.00 2.00 04/23/17 04/23/17 04/23/17 04/23/17 06:00 06:15 06:30 06:45 Pulse 101 101 101 99 Resp 19 18 19 17 B/P (MAP) 148/78 147/78 139/79 131/76 Pulse Ox 99 99 99 99 O2 Flow Rate 2.00 2.00 2.00 2.00 04/23/17 04/23/17 04/23/17 04/23/17 07:00 08:00 08:26 09:31 Temp 97.7 Pulse 101 102 B/P (MAP) 163/77 Pulse Ox 99 O2 Flow Rate 2.00 04/23/17 04/23/17 04/23/17 04/23/17 09:35 09:38 12:00 12:54 Temp 98.1 Pulse 104 103 B/P (MAP) 147/74 162/82 Pulse Ox 99 99 99 O2 Flow Rate 2.00 04/23/17 12:54 Temp 98.1 Intake and Output 04/23/17 00:00 Intake Total 1385 ml Output Total 450 ml Balance 935 ml Weight (Pounds): 150 Weight (Ounces): 1.6 Weight (Calculated Kilograms): 68.414995 Constitutional: AAO x 3 (but mildly confused) Respiratory: lungs clear to auscultation Cardiovascular: irregularly irregular, S1 and S2 Gastrointestional: soft, audible bowel sounds Extremities: no lower extremity edema bilateral Neurologic/Psychiatric: grossly intact Skin: No rash, No ulcerations Results/Procedures: Labs Laboratory Tests 04/23/17 04:15: White Blood Count 9.9, Red Blood Count 3.78L, Hemoglobin 11.2L, Hematocrit 34L, Mean Corpuscular Volume 91, Mean Corpuscular Hemoglobin 30, Mean Corpuscular Hemoglobin Concent 33, Red Cell Distribution Width 13.8, Platelet Count 259, Mean Platelet Volume 10.0, Neutrophils (%) (Auto) 89H, Lymphocytes (%) (Auto) 6L , Monocytes (%) (Auto) 5, Eosinophils (%) (Auto) 0, Basophils (%) (Auto) 0, Neutrophils # (Auto) 8.7H, Lymphocytes # (Auto) 0.6L, Monocytes # (Auto) 0.5, Eosinophils # (Auto) 0.0, Basophils # (Auto) 0.0, Neutrophils % (Manual) 90, Lymphocytes % (Manual) 4, Monocytes % (Manual) 6, Eosinophils % (Manual) 0, Basophils % (Manual) 0, Band Neutrophils 0, Anisocytosis SLIGHT, Microcytosis SLIGHT, Elliptocytes SLIGHT, Sodium Level 138, Potassium Level 4.4, Chloride Level 110H, Carbon Dioxide Level 18L, Anion Gap 10, Blood Urea Nitrogen 21H, Creatinine 0.81, Estimat Glomerular Filtration Rate > 60, BUN/Creatinine Ratio 26, Glucose Level 125H, Calcium Level 9.2, Phosphorus Level 3.0, Magnesium Level 1.6L, Free Thyroxine 1.04 Laboratory Tests 04/22/17 05:18 04/23/17 04:15 Procedures NAME: BILLY FERRARA [facility] REC#: [id number] PT STATUS: ADM Ren : 1940 PHYSICIAN: JUDSON MICHAEL MD ADMIT DATE: 04/20/17/ Signed Date of Exam: 04/21/17 US THYROID [id number] PROCEDURE: US Thyroid. TECHNIQUE: Multiple real-time grayscale images were obtained of the thyroid in various projections. INDICATION: Hypothyroidism. COMPARISON: No priors. FINDINGS: Right thyroid lobe 4.5 x 2.0 x 1.9 cm, left lobe 4.4 x 1.8 x 1.6 cm. Both lobes are within normal limits. No abnormal elevated color Doppler blood flow. There are multiple bilateral thyroid nodules predominantly solid some of which showing elements of intralesional cystic degeneration. The largest on the right is in the lower pole 2.6 x 1.8 x 1.7 cm with an upper pole nodule on the right measuring long axis of 1.3 cm. The largest mass on the left measures 1.0 x 2.0 x 1.3 cm. Additional 1-1.5 cm nodules at its mid and upper pole present. IMPRESSION: Multiple bilateral thyroid nodules predominately solid and showed varying degrees of elements of intralesional cystic degeneration. Their multiplicity and appearance is most suggestive of multiple adenomas and goiterous disease. The dominant mass in the lower pole of the right lobe shows some lobulation of its fairly well-defined borders as well as some coarse intralesional calcifications. I would suggest either short-term followup in 6-12 months versus consideration for needle sampling of that mass as further workup. Dictated by: Dictated on workstation # [id number] Dict: 04/21/17 1009 Trans: 04/21/17 1032 Interpreted by: GRABIEL FOSTER Electronically signed by: GRABIEL FOSTER 04/21/17 1032 NAME: BILLY FERRARA [facility] REC#: [id number] PT STATUS: ADM IN : 1940 PHYSICIAN: WIN RDZ MD ADMIT DATE: 04/22/17/ICU Signed Date of Exam: 04/22/17 CT ANGIO CHEST W PROCEDURE: CT angiography of the chest with contrast. TECHNIQUE: Multiple contiguous axial images were obtained through the chest after uneventful bolus administration of intravenous contrast. Reconstructed CTA MIP acquisitions were also performed. INDICATION: History of lung cancer. Chest pain. Possible aortic dissection. COMPARISON: 07/08/2016 FINDINGS: There is no evidence of pulmonary embolus or thoracic aortic dissection. There is mild atherosclerosis of the thoracic aorta without aneurysm. Coronary artery calcifications are noted. There are multiple low-density nodules with calcifications in the thyroid gland, nonspecific. There is no significant mediastinal, hilar or axillary adenopathy. There is no pneumothorax. Although this is moderately decreased from the prior study. Some coarse linear areas of scarring or atelectasis are again noted. No significant new pulmonary parenchymal abnormality is suspected. There is patchy bilateral basilar atelectasis. There are postoperative changes of the right lower lobe. There is an ill-defined 3.2 cm x 2.7 cm parenchymal density associated with the postoperative changes best seen on series 4 image 90, which is unchanged from the prior CT. Some minimal pleural fluid here. IMPRESSION: 1. No evidence of thoracic aortic dissection or other acute vascular abnormality. 2. Postoperative findings in the right chest with irregular parenchymal density along the suture line similar to the prior exam. Interval decrease in size of a small right pleural effusion 3. No significant new abnormality is suspected when compared to the prior CT. Dictated by: Dictated on workstation # [id number] Dict: 04/22/17 0715 Trans: 04/22/17 1106 Interpreted by: ALENA OBANDO DO Electronically signed by: ALENA OBANDO DO 04/22/17 1106 NAME: [facility] REC#: [id number] PT STATUS: ADM IN : 1940 PHYSICIAN: MARIA GUADALUPE VELASQUEZ DO ADMIT DATE: 04/22/17/ICU Signed Date of Exam: 04/23/17 CHEST 1 VIEW, AP/PA ONLY INDICATION: Shortness of breath. Portable chest 5:10 AM FINDINGS: Heart size and pulmonary vascularity are normal. There is a focal area of consolidation in the right lower lung. Left lung is clear. IMPRESSION: Focal area of consolidation right lower lung approximately 3.5 cm in diameter. This appears similar to the previous days comparison exam. Dictated by: Dictated on workstation # [id number] Dict: 04/23/17 0755 Trans: 04/23/17823 Interpreted by: PHI HOPE Electronically signed by: PHI HOPE 04/23/17823 A/P: Assessment: A-fib with RVR (except one documented bradycardia in the early hours of 04-21-17 (HR 43); no recurrence) Marked hyperthyroidism, based on low TSH (0.17) of 03/28/17 and again TSH of (0.02 ) on lab of 04/20/17 Thryroid goiter: Thyroid u/s of 04/21/17: Multiple bilateral thyroid nodules predominately solid and showed varying degrees of elements of intralesional cystic degeneration. Their multiplicity and appearance is most suggestive of multiple adenomas and goiterous disease. The dominant mass in the lower pole of the right lobe shows some lobulation of its fairly well-defined borders as well as some coarse intralesional calcifications H/o Paroxysmal A. Fib, s/p elec cardioversion to sinus rhythm on09/06/13. Documented again on a visit of 05/20/14. Presentation to ER on 03/02/15 with A fib/ flutter with RVR again in February 2017, had improved after addition of long- acting dilt to regimen Coronary artery disease, moderate in the left coronary system and moderate to moderately severe in the right coronary system on cardiac catheterization of . MPI of 04/23/17 did not show any significant ischemia and LVEF was normal. Last echo of 03/07/[address] Rdz: LVEF 60%, mod to sev pulm htn with RVSP 55 mmHg, mod MR, NATASHA, no evidence of intracardiac shunt. H/o diastolic congestive heart failure which currently appears compensated. Hypertension with left ventricular hypertrophy Hypertension, labile. History of R lung wedge [facility] for [facility]-small cell carcinoma [facility] [address] [facility] The patient is following with Dr Mejía of the Oncology services at [facility] History of hyperlipidemia being treated with statin therapy. Left bundle branch block. 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 She has again had recurrent a-fib/flutter with RVR. Cardizem gtt has been initiated, rate improved. We will start oral Cardizem The other issue is that of BP. She is currently hypertensive, however on previous dose of Metoprolol (100mg BID) she had a documented episode of bradycardia (HR 43) around 7:00 a.m. for which no correlating symptoms were documented. We will restart BB for HR and BP control, however at a lower dose We will restart ARB She does report chest pressure with episodes of elevated HR - MPI earlier this morning - results pending Continue OAC Hyperthyroidism according to TSH of 03-28-17 and again on 04-20-17. Thyroid u/s of 04-21-17 showed multiple nodules suggestive of goitrous disease - medical services managing Replace magnesium Monitor lab closely Physician Assessment Physician Assessment Mildly confused Lungs: good bilat air entry Cor: irreg with a somewhat rapid vent response MPI today: WNL A&R * As documented in our note above that I updated at the time of this dictation * We have made several recommendations to the Medical Service taking care of her during this hosp: 1) consider pharmacologic treatment of hyperthyroidism; without that it will be very difficult to control heart rate and blood pressure ; 2) consider a work up for multiple endocrine neoplasia; consider Oncology consultation; 3) consider a work up for mental status changes (confusion) * Monitor closely for now Clinical Quality Measures AMI/AHF: ASA po Prior to arrival: MARIZA Eastman WELFARE WORKER April 23, 2017 09:13 JIM OLIVO MD FACP FAC CCDS April 23, 2017 14:14
[2017-04-23] MEDS: ACETAMINOPHEN 325 MG TABLET/CAPLET (TYLENOL) PO PRN (09:55)
[2017-04-23] MEDS ORDERED: ASPI-983 PO (11:14)
[2017-04-23] MEDS ORDERED: OMG1KC PO (11:14)
[2017-04-23] MEDS ORDERED: CALC-6 PO (11:14)
[2017-04-23] MEDS ORDERED: FURO20TA4 PO (11:22)
[2017-04-23] MEDS ORDERED: DILTIAZEM 240 MG (CARDIZEM CD) CAP PO NR (11:30)
[2017-04-23] MEDS ORDERED: VALSARTAN 80 MG (DIOVAN) TAB PO NR (11:30)
[2017-04-23] MEDS ORDERED: meTOprolol TARTRATE 50 MG (LOPRESSOR) TAB PO NR (11:30)
[2017-04-23] MEDS: APIXABAN 5 MG (ELIQUIS) TABLET PO SCH ×2 (11:33→20:04)
--- NOTE | 2017-04-23 15:37 | Progress Note-Hospitalist ---
Standard Progress Note Progress Notes/Assess & Plan Date Seen 04/23/17 Diagnosis A-fib with RVR Assess & Plan/Chief Complaint The patient is a 76-year-old white female known to me. I last saw her on 04/13 in the emergency room when she presented with atrial fibrillation and RVR. This rate disturbance resolved and her metoprolol was increased in hopes of controlling this. Subsequently she returned again on 04/21 and was admitted for A. fib plus RVR. Her rate is presently controlled. Of particular interest is the observation of a TSH of 0.02 suggesting hyperthyroidism. An ultrasound of the thyroid showed multiple nodules consistent with adenomas and therefore goiter. The free T4 was initially 1.33 and on repeat 1.04 which is in the mid to lower normal range. This would be of interest as hyperthyroidism might be a co factor for RVR. An attempt has been made this afternoon to contact a [place] brim shaper, and effort at this point not fruitful Physical exam: We have an elderly white female who was sleeping when I entered the room. Lungs were clear to auscultation. CV showed an irregular rhythm with atrial fibrillation on the monitor. The rate was controlled at less than 100 bpm. Impression: 1.atrial fibrillation with recurrent RVR. 2.history non-small cell carcinoma lung treated beginning in 2013. 3.suspicious thyroid dysfunction Plan: Transfer to floor. Labs Laboratory Tests 04/22/17 05:18 04/23/17 04:15 DARIUS LAW MD April 23, 2017 15:37
--- NOTE | 2017-04-23 19:09 | STRESS TEST ---
DATE OF SERVICE: 04/23/2017 RESTING AND POST REGADENOSON TECHNETIUM 99M SPECT CT IMAGING ORDERING PHYSICIAN: Saul Rdz MD PRIMARY PHYSICIAN: Shivam Lee MD CLINICAL DIAGNOSIS: Chest pain, atrial fibrillation. Baseline images were carried out after injection of 10.66 mCi of technetium 99M Tetrofosmin This was followed by 0.4 mCi of adenosine and 31.9 mCi of technetium 99M Tetrofosmin for stress imaging. The electrocardiogram showed atrial fibrillation/flutter with a somewhat rapid ventricular response throughout the study. There was bundle branch block present. The electrocardiogram did not change significantly with the regadenoson infusion. Review of images at rest and following stress does not indicate any significant perfusion defects consistent with significant myocardial ischemia or infarction. Gated images show normal global left ventricular systolic function with normal regional wall motion. Left ventricular ejection fraction is calculated to be 69%. Left ventricular end diastolic volume is 50 mL. TID is absent (1.1). CONCLUSIONS: 1. No evidence of any significant myocardial ischemia or infarction on this study. 2. Normal regional wall motion. 3. Normal global left ventricular systolic function with a calculated ejection fraction of 69%. 4. Normal left ventricular cavity size. Job ID: [id number] DocumentID: [id number] Dictated Date: 04/23/2017 13:20:57 Bundle Person Date: 04/23/2017 17:01:00 Dictated By: JIM OLIVO MD, MA, FACP, FACC,
[2017-04-23] MEDS: meTOprolol TARTRATE 50 MG (LOPRESSOR) TAB PO SCH (20:04)
[2017-04-23] MEDS: VALSARTAN 80 MG (DIOVAN) TAB PO SCH (20:04)
[2017-04-23] MEDS: LORazepam INJ 2 MG/ML (ATIVAN) VIAL IV PRN (22:41)
[2017-04-23] MEDS ORDERED: FUROSEMIDE 40 MG (LASIX) TAB PO ONE (23:15)
[2017-04-24 00:59] VITALS: BP 157/72
[2017-04-24] MEDS: meTOprolol TARTRATE 50 MG (LOPRESSOR) TAB PO SCH (02:19)
[2017-04-24] MEDS: NS IV 1000 ML 1,000 ML IV SCH (02:52)
[2017-04-24] MEDS: ACETAMINOPHEN 325 MG TABLET/CAPLET (TYLENOL) PO PRN (03:06)
[2017-04-24 04:12] VITALS: BP 125/63
[2017-04-24] MEDS: KCL 20 MEQ TAB (K-DUR) PO SCH (05:16)
[2017-04-24] MEDS: LORazepam INJ 2 MG/ML (ATIVAN) VIAL IV PRN (05:26)
[2017-04-24 07:00] LABS: ANION GAP 13 MMOL/L (5-14); BLOOD UREA NITROGEN 17 MG/DL (7-18); BUN/CREATININE RATIO 22; CALCIUM 9.3 MG/DL (8.5-10.1); CARBON DIOXIDE 19 MMOL/L (21-32); CHLORIDE 105 MMOL/L (98-107); CREATININE SERUM 0.76 MG/DL (0.60-1.30); GFR ESTIMATED > 60; GLUCOSE 87 MG/DL (70-105); POTASSIUM 3.9 MMOL/L (3.6-5.0); SODIUM 137 MMOL/L (135-145)
--- NOTE | 2017-04-24 08:32 | Pulmonary Progress Note ---
Exam Exam Vital Signs Date Time Temp Pulse Resp B/P (MAP) Pulse Ox O2 Delivery O2 Flow Rate FiO2 04/24/17 04:12 99.2 99 22 125/63 94 2.00 04/24/17 00:59 98.4 94 20 157/72 98 2.00 04/24/17 00:48 98 04/23/17 23:24 2.00 04/23/17 22:00 98.8 104 22 146/77 96 2.00 04/23/17 21:16 101 04/23/17 20:00 2.00 04/23/17 19:34 98.2 87 18 139/79 100 04/23/17 16:21 2.00 04/23/17 15:25 97.0 101 18 142/81 94 04/23/17 15:00 101 15 151/81 96 2.00 04/23/17 15:00 101 15 151/81 96 2.00 04/23/17 14:00 100 17 128/74 93 2.00 04/23/17 13:00 100 04/23/17 13:00 96 17 142/92 99 2.00 04/23/17 12:54 98.1 04/23/17 12:54 98.1 04/23/17 12:00 99 2.00 04/23/17 12:00 100 16 144/79 100 2.00 04/23/17 11:00 101 17 148/74 04/23/17 10:00 143/75 04/23/17 09:38 103 162/82 99 04/23/17 09:35 104 147/74 99 04/23/17 09:31 102 163/77 I & O 04/24/17 07:00 Intake Total 3354 ml Output Total 2800 ml Balance 554 ml General Appearance: No Apparent Distress, WD/WN HEENT: PERRL/EOMI, No Scleral Icterus (L), No Scleral Icterus (R) Neck: Non Tender, Supple, No Thyromegaly Respiratory: Chest Non Tender, Normal Breath Sounds, No Accessory Muscle Use, No Respiratory Distress Cardiovascular: No No JVD, No No Murmur, Bradycardia Capillary Refill: Less Than 3 Seconds Extremity: Normal Capillary Refill, No Calf Tenderness, No Pedal Edema Neurologic/Psychiatric: Alert, Oriented x3, Other (tangential) Skin: Normal Color, Warm/Dry Results Lab Laboratory Tests 04/23/17 04:15 04/24/17 05:24 Assessment/Plan Assessment/Plan Afib -Cardilogy consulted ?hyperthyriod -hospitalist management Hx of lung cancer - CT scan shows irregular mass - possibly secondary to surgical changes hx of right lung wedge resection 04/07 -Pt will need out patient F/u -Pt follows with oncology at [place] [address] Clinical Quality Measures AMI/AHF: ASA po Prior to arrival: No DVT/VTE Risk/Contraindication: Risk Factor Score Per Nursin RFS Level Per Nursing on Admit: 2=Moderate DAVION ZAMORA DO April 24, 2017 08:32
[2017-04-24 09:00] VITALS: BP 137/78
[2017-04-24] MEDS ORDERED: DILTIAZEM 240 MG (CARDIZEM CD) CAP PO SCH (09:00)
[2017-04-24] MEDS: VALSARTAN 80 MG (DIOVAN) TAB PO SCH (09:33)
[2017-04-24] MEDS: APIXABAN 5 MG (ELIQUIS) TABLET PO SCH (09:33)
--- NOTE | 2017-04-24 09:51 | Progress Note-Cardiology ---
Cardiology SOAP Progress Note Subjective: Denies cp or palp or syncope Feels weak Objective: I&O/Vital Signs Vital Sign - Last 12Hours 04/23/17 04/23/17 04/24/17 04/24/17 22:00 23:24 00:48 00:59 Temp 98.8 98.4 Pulse 104 98 94 Resp 22 20 B/P (MAP) 146/77 157/72 Pulse Ox 96 98 O2 Flow Rate 2.00 2.00 2.00 04/24/17 04/24/17 04:12 07:35 Temp 99.2 Pulse 99 101 Resp 22 B/P (MAP) 125/63 Pulse Ox 94 O2 Flow Rate 2.00 Intake and Output 04/24/17 00:00 Intake Total 2954 ml Output Total 1600 ml Balance 1354 ml Weight (Pounds): 155 Weight (Ounces): 0.5 Weight (Calculated Kilograms): 70.967387 Constitutional: AAO x 3 (but mildly confused) Respiratory: lungs clear to auscultation Cardiovascular: irregularly irregular, S1 and S2 Gastrointestional: soft, audible bowel sounds Extremities: no lower extremity edema bilateral Neurologic/Psychiatric: grossly intact Skin: No rash, No ulcerations Results/Procedures: Labs Laboratory Tests 04/24/17 05:24: Sodium Level 137, Potassium Level 3.9, Chloride Level 105, Carbon Dioxide Level 19L, Anion Gap 13, Blood Urea Nitrogen 17, Creatinine 0.76, Estimat Glomerular Filtration Rate > 60, BUN/Creatinine Ratio 22, Glucose Level 87, Calcium Level 9.3 Microbiology 04/22/17 MRSA Screen - Final, Complete MRSA not isolated Laboratory Tests 04/23/17 04:15 04/24/17 05:24 A/P: Assessment: Mild confusion (mental status change) A-fib with RVR (except one documented bradycardia in the early hours of 04-21-17 (HR 43); no recurrence) Marked hyperthyroidism, based on low TSH (0.17) of 03/28/17 and again TSH of (0.02 ) on lab of 04/20/17 Thryroid goiter: Thyroid u/s of 04/21/17: Multiple bilateral thyroid nodules predominately solid and showed varying degrees of elements of intralesional cystic degeneration. Their multiplicity and appearance is most suggestive of multiple adenomas and goiterous disease. The dominant mass in the lower pole of the right lobe shows some lobulation of its fairly well-defined borders as well as some coarse intralesional calcifications H/o Paroxysmal A. Fib, s/p elec cardioversion to sinus rhythm on09/06/13. Documented again on a visit of 05/20/14. Presentation to ER on 03/02/15 with A fib/ flutter with RVR again in February 2017, had improved after addition of long- acting dilt to regimen Coronary artery disease, moderate in the left coronary system and moderate to moderately severe in the right coronary system on cardiac catheterization of . MPI of 04/23/17 did not show any significant ischemia and LVEF was normal. Last echo of 03/07/[address] Rdz: LVEF 60%, mod to sev pulm htn with RVSP 55 mmHg, mod MR, NATASHA, no evidence of intracardiac shunt. H/o diastolic congestive heart failure which currently appears compensated. Hypertension with left ventricular hypertrophy Hypertension, labile. History of R lung wedge resection for non-small cell carcinoma in March [address] Mccord at [facility]. The patient is following with Dr Mejía of the Oncology services at [facility] History of hyperlipidemia being treated with statin therapy. Left bundle branch block. 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 Dr Coats will make that decision * We will order CT head with contrast, given mental status changes * Monitor labs * Increase Dilt to provide better heart rate control Clinical Quality Measures AMI/AHF: ASA po Prior to arrival: JIM Donnelly MD FACP FAC CCDS April 24, 2017 09:51
[2017-04-24] MEDS ORDERED: CATHETER FLUSH 10 ML SYR IV PRN ×2 (10:00→12:45)
[2017-04-24] MEDS ORDERED: NS 100 ML (IVPB) BAG IV ONE ×2 (10:00→12:45)
[2017-04-24] MEDS ORDERED: methylPREDNISolone 125 MG (Solu-MEDROL) VIAL IM ONE (10:00)
[2017-04-24] MEDS ORDERED: diphenhydrAMINE 50 MG/ML INJ (BENADRYL) IVP ONE (10:00)
[2017-04-24] MEDS ORDERED: IOHEXOL 350 MG/ML 100 ML (OMNIPAQUE 350) VIAL IV ONE ×2 (10:00→12:45)
[2017-04-24] MEDS ORDERED: DILTIAZEM 120 MG (CARDIZEM CD) CAP PO NR (10:03)
--- NOTE | 2017-04-24 11:49 | Progress Note-Hospitalist ---
Standard Progress Note Progress Notes/Assess & Plan Date Seen 04/24/17 Diagnosis A-fib with RVR Assess & Plan/Chief Complaint The patient reports she is feeling better today. She believes that her energy level is down. There has been no recurrence of her tachycardia arrhythmia. Although her TSH is low and would suggest the possibility of hyperthyroidism, her free T4 is normal and her T3 is low. This certainly does not speak to clinical hyperthyroidism. Her ultrasound suggested adenoma or goiter. Outpatient endocrinology evaluation would appear to be reasonable. This does not present a convincing picture for an aggravating factor to her recurrent RVR. Accordingly she will be discharged after completion of her CT scan of the head today. Physical exam: She was sleeping when I entered the room. Lungs are clear to auscultation. CV is irregular but with a controlled rate. Ankles show no pedal edema. Vital signs are appropriate. Impression: Atrial fibrillation with recurrent RVR now controlled. 2.past history of a non-small cell carcinoma of the lung. 3.thyroid abnormalities as detailed above. Plan: Discharge. Follow-up with JIM Corona relative to atrial fibrillation and bradycardia and hypotension concerns. She was strongly urged to affiliate with a local physician in order to address her other issues. Labs Laboratory Tests 04/23/17 04:15 04/24/17 05:24 Final Diagnosis 1.atrial fibrillation with rapid ventricular response. 2.thyroid/pituitary dysfunction. 3.past history non-small cell carcinoma of the lung. DARIUS LAW MD April 24, 2017 11:49
--- NOTE | 2017-04-24 11:55 | Discharge Instructions ---
Discharge Instructions Patient Instructions Goal/Follow Up Appt: Take medications as detailed on your discharge sequence. Your strongly encouraged to establish a local physician. Dr. Raciel Dias, phone number [phone]. It would be our recommendation that an outpatient appointment be made with an storage facility housekeeper to evaluate your thyroid function. Return to The Hospital For: Recurrence of symptoms Activity & Diet Discharge Diet: No Restrictions Activity as Tolerated: Yes DARIUS LAW MD April 24, 2017 11:55
[2017-04-24 12:00] VITALS: BP 154/78
[2017-04-24] MEDS ORDERED: diphenhydrAMINE 50 MG/ML INJ (BENADRYL) IVP NR (14:29)
[2017-04-24] MEDS ORDERED: methylPREDNISolone 125 MG (Solu-MEDROL) VIAL IM NR (14:29)
--- NOTE | 2017-04-24 15:10 | Diagnostic Imaging Report ---
PROCEDURE: CT head with and without contrast. TECHNIQUE: Multiple contiguous axial images were obtained through the brain before and after the administration of intravenous contrast. INDICATION: Confusion. 80 mL of Omnipaque 350 is administered intravenously. FINDINGS: The unenhanced phase demonstrates no intracranial hemorrhage, edema or mass effect. There is periventricular and deep white hypodensities without associated contrast enhancement to suggest an underlying mass, suggestive of chronic microvascular ischemic changes. No hydrocephalus. No extra-axial fluid collection is seen. The calvarium, the paranasal sinuses and orbits visualized portions appear grossly unremarkable. IMPRESSION: White matter findings are suggestive of chronic microvascular ischemic changes. No enhancing mass. Dictated by: Dictated on workstation # [id number]
[2017-04-24 15:18] VITALS: BP 143/72
[2017-04-24] MEDS ORDERED: METO50TA2 PO (16:25)
[2017-04-24] MEDS ORDERED: DILT180C64 PO (16:25)
[2017-04-24 18:05] VITALS: BP 143/72
[2017-04-25] MEDS ORDERED: DILTIAZEM 180 MG (CARDIZEM CD) CAP PO SCH (09:00)
== END 2017-04-24 18:05 | disposition home or self-care (01) | DRG 309 ==
LOC: EDUNIT# 15:16 → ER 15:17 → 4TH 18:45 → UNDOADMOB 18:45 → 4TH 19:25 → ICU 04-22 06:01 → INTOOBSV 04-22 10:00 → OBSVTOIN 04-22 10:00 → 4TH 04-23 15:24
PROVIDERS: ADMIT Internal Medicine; ATTEND Internal Medicine
DX: I48.0 Paroxysmal atrial fibrillation (principal); R00.1 Bradycardia, unspecified; J44.9 Chronic obstructive pulmonary disease, unspecified; I11.0 Hypertensive heart disease with heart failure; I50.32 Chronic diastolic (congestive) heart failure; E05.20 Thyrotoxicosis with toxic multinodular goiter without thyrotoxic crisis or storm; I25.10 Atherosclerotic heart disease of native coronary artery without angina pectoris; F41.9 Anxiety disorder, unspecified; F32.9 Major depressive disorder, single episode, unspecified; M19.91 Primary osteoarthritis, unspecified site; M54.9 Dorsalgia, unspecified; I44.7 Left bundle-branch block, unspecified; I08.1 Rheumatic disorders of both mitral and tricuspid valves; E78.5 Hyperlipidemia, unspecified; E87.6 Hypokalemia; E83.42 Hypomagnesemia; Z85.118 Personal history of other malignant neoplasm of bronchus and lung; Z90.2 Acquired absence of lung [part of]; Z87.891 Personal history of nicotine dependence; Z86.73 Personal history of transient ischemic attack (TIA), and cerebral infarction without residual deficits
CPT/HCPCS: 36415; 70470; 71010; 71275; 76536; 78452; 80048; 80053; 83735; 84100; 84439; 84443; 84481; 84484; 85007; 85025; 85027; 87081; 93005; 93017; 93041; G0378

== ENCOUNTER 2017-05-16 09:57 | Emergency (ER) | payer MEDICARE, MEDICAID ==
[~2017-05-16] VITALS: Ht 167.6 cm; Wt 61.2 kg
[~2017-05-16 09:57] MED LIST changes: +ASPI-983 PO; +CALC-6 PO; +DILT180C64 PO; +METO50TA2 PO
[2017-05-16 11:02] LABS: BASOPHILS % (AUTO) 0 % (0-10); EOSINOPHILS # (AUTO) 0.2 10^3/uL (0.0-0.3); EOSINOPHILS % (AUTO) 4 % (0-10); LYMPHOCYTES # (AUTO) 0.6 X 10^3 (1.0-4.0); LYMPHOCYTES % (AUTO) 12 % (12-44); MEAN CORPUSCULAR HEMOGLOBIN 30 PG (25-34); MEAN CORPUSCULAR HGB CONC 33 G/DL (32-36); MEAN CORPUSCULAR VOLUME 91 FL (80-99); MEAN PLATELET VOLUME 9.6 FL (7.4-10.4); MONOCYTES # (AUTO) 0.4 X 10^3 (0.0-1.0); MONOCYTES % (AUTO) 9 % (0-12); NEUTROPHILS # (AUTO) 3.4 X 10^3 (1.8-7.8); NEUTROPHILS % (AUTO) 74 % (42-75); PLATELET COUNT 312 10^3/uL (130-400); RED BLOOD COUNT 3.83 10^6/uL (4.35-5.85); RED CELL DISTRIBUTION WIDTH 14.4 % (10.0-14.5); WHITE BLOOD COUNT 4.6 10^3/uL (4.3-11.0)
--- NOTE | 2017-05-16 11:04 | ED Cardiac General ---
History of Present Illness General Chief Complaint: Cardiac/General Problems Stated Complaint: PALPITATIONS Nursing Triage Note: EMS CALLED TO PT'S HOME FOR PALPITATIONS WHICH WAS NOTICIECD WHEN SHE WOKE UP. EMS REPORTS PT BEING IN AFIB THAT RESOLVED IN ROUTE. PT STATES SHE FEELS FINE AT THIS TIME. Source: patient Exam Limitations: no limitations History of Present Illness Time seen by provider: 11:02 Initial Comments To ER per EMS from home with reports of shakiness and high blood pressure. Patient states that she saw Dr. Mccord in [place] for follow-up as he removed part of her lung after her lung cancer years ago. This morning she felt very shaky and noticed her blood pressure to be high, she states that it was 280/ 160. Yesterday Dr. Whalen office she states it was 60/40. EMS noted a brief appearance of atrial fibrillation on the complementary health therapists which resolved. Upon arrival to ER patient reports that she feels back to normal with no chest pain, no shortness of breath and no palpitations. Blood pressure 160/87. Heart rate 70s sinus. She is on Eliquis, Cardizem, metoprolol, Lasix for history of atrial fibrillation and congestive heart failure. Timing/Duration: 1-2 days Severity: moderate NTG SL OPERATING ROOM REGISTERED NURSE: No ASA po OPERATING ROOM REGISTERED NURSE: No Associated Systoms: No Chest Pain Allergies and Home Medications Allergies Coded Allergies: Penicillins (Unverified Allergy, Mild, RASH, 09/24/10) RUPAL Inhibitors (Verified Allergy, Unknown, HIVES, 12/11/16) atorvastatin (Verified Allergy, Unknown, HIVES, 12/11/16) iodine (Verified Allergy, Unknown, HIVES, 12/11/16) Home Medications Albuterol Sulfate 18 Gm Hfa.aer.ad, 2 PUFF INH Q4H PRN for SHORTNESS OF BREATH, (Reported) Apixaban 5 Mg Tablet, 5 MG PO BID, (Reported) LAST FILLED #60 17 Aspirin 81 Mg Tablet.dr, 81 MG PO DAILY, (Reported) Budesonide/Formoterol Fumarate 10.2 Gm Hfa.aer.ad, 2 PUFF INH BID, (Reported) Calcium Carbonate/Vitamin D3 1 Each Tablet, 1 TAB PO DAILY, (Reported) Diltiazem HCl 240 Mg Cap.er.24h, 240 MG PO DAILY, (Reported) LAST FILLED 02-28-17 #30 Diltiazem HCl 180 Mg Cap.er.24h, 360 MG PO DAILY, #30 Prescribed by: SANDY VASQUEZ on 04/24/17 1625 Furosemide 20 Mg Tablet, 20 MG PO DAILY, (Reported) Furosemide 20 Mg Tablet, 20 MG PO HS PRN for SWELLING , (Reported) Metoprolol Tartrate 50 Mg Tablet, 50 MG PO BID, #60 Prescribed by: SANDY VASQUEZ on 04/24/17 1625 [place] 3 Polyunsat Fatty Acids 1,000 Mg Cap, 3,000 MG PO DAILY, (Reported) TAKES 3 (1000MG) CAPSULES Potassium Chloride 8 Meq Tablet.er, 8 MEQ PO HS PRN for IF TAKING 2ND DOSE FUROSEMIDE, (Reported) LAST FILLED #30 02-27-17 Tiotropium [place] 4 Gm Mist.inhal, 2 PUFF IH DAILY, (Reported) Valsartan 80 Mg Tablet, 80 MG PO BID, (Reported) LAST FILLED #60 03-10-17 Review of Systems Constitutional: see HPI EENTM: No Symptoms Reported Respiratory: No Symptoms Reported Cardiovascular: See HPI, Denies Chest Pain, Denies Edema, Irregular Heart Rate , Denies Lightheadedness, Palpitations, Denies Syncope Gastrointestinal: See HPI Genitourinary: No Symptoms Reported Musculoskeletal: no symptoms reported, No back pain Skin: no symptoms reported Psychiatric/Neurological: No Symptoms Reported Past Sxkwueg-Oyrnsx-Nciqpk Hx Patient Social History Alcohol Use: Denies Use Recreational Drug Use: No Smoking Status: Former Smoker Type Used: Cigarettes Former Smoker/When Quit: Mar 15, 1982 2nd Hand Smoke Exposure: No Recent Foreign Travel: No Contact w/Someone Who Travel: No Recent Infectious Disease Expo: No Recent Hopitalizations: Yes Immunizations Up To Date Tetanus Booster (TDap): Unknown Date of Pneumonia Vaccine: Aug 17, 2013 Date of Influenza Vaccine: Sep 07, 2013 Seasonal Allergies Seasonal Allergies: No Surgeries HX Surgeries: Yes (CARDIAC CATH; RIGHT LUNG RESECTION/TUMOR REMOVAL) Surgeries: Cardiac, Gallbladder, Hysterectomy, Lobectomy, Tonsillectomy Respiratory Hx Respiratory Disorders: Yes (+ 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 Genitourinary Hx Genitourinary Disorders: Yes Genitourinary Disorders: Bladder Infection Gastrointestinal Hx Gastrointestinal Disorders: Yes (S/P SOCORRO) Gastrointestinal Disorders: Gall Bladder Disease Musculoskeletal Hx Musculoskeletal Disorders: No Musculoskeletal Disorders: Arthritis, Chronic Back Pain Endocrine Hx Endocrine Disorders: Yes Endocrine Disorders: Hyperthyroidism HEENT HX ENT Disorders: Yes HEENT Disorders: Cataract Cancer Hx Cancer: Yes Cancer: Lung Psychosocial Hx Psychiatric Problems: Yes Behavioral Health Disorders: Anxiety, Depression Integumentary HX Skin/Integumentary Disorder: No Blood Transfusions Hx Blood Disorders: No Adverse Reaction to a Blood Tr: No Family Medical History Significant Family History: No Pertinent Family Hx Family Medial History: Patient reports no known family medical history. Physical Exam Vital Signs Vital Sign - Last 12Hours 05/16/17 09:57 Temp 98.2 Pulse 74 Resp 18 B/P (MAP) 160/70 Pulse Ox 97 O2 Delivery Room Air Capillary Refill : Less Than 3 Seconds General Appearance: WD/WN HEENT: PERRL/EOMI, TMs Normal Neck: Full Range of Motion, Normal Inspection Respiratory: Normal Breath Sounds, No Accessory Muscle Use, No Respiratory Distress Cardiovascular: Regular Rate, Rhythm, Normal Peripheral Pulses Gastrointestinal: Normal Bowel Sounds, Non Tender, Soft Extremity: Normal Capillary Refill, Normal Inspection Neurologic/Psychiatric: Alert, Oriented x3 Skin: Normal Color, Warm/Dry Progress/Results/Core Measures Results/Orders Lab Results Laboratory Tests Test 05/16/17 10:53 Range/Units White Blood Count 4.6 4.3-11.0 10^3/uL Red Blood Count 3.83 L 4.35-5.85 10^6/uL Hemoglobin 11.5 11.5-16.0 G/DL Hematocrit 35 35-52 % Mean Corpuscular Volume 91 80-99 FL Mean Corpuscular Hemoglobin 30 25-34 PG Mean Corpuscular Hemoglobin Concent 33 32-36 G/DL Red Cell Distribution Width 14.4 10.0-14.5 % Platelet Count 312 130-400 10^3/uL Mean Platelet Volume 9.6 7.4-10.4 FL Neutrophils (%) (Auto) 74 42-75 % Lymphocytes (%) (Auto) 12 12-44 % Monocytes (%) (Auto) 9 0-12 % Eosinophils (%) (Auto) 4 0-10 % Basophils (%) (Auto) 0 0-10 % Neutrophils # (Auto) 3.4 1.8-7.8 X 10^3 Lymphocytes # (Auto) 0.6 L 1.0-4.0 X 10^3 Monocytes # (Auto) 0.4 0.0-1.0 X 10^3 Eosinophils # (Auto) 0.2 0.0-0.3 10^3/uL Basophils # (Auto) 0.0 0.0-0.1 10^3/uL Sodium Level 140 135-145 MMOL/L Potassium Level 3.5 L 3.6-5.0 MMOL/L Chloride Level 105 98-107 MMOL/L Carbon Dioxide Level 26 21-32 MMOL/L Anion Gap 9 5-14 MMOL/L Blood Urea Nitrogen 25 H 7-18 MG/DL Creatinine 1.08 0.60-1.30 MG/DL Estimat Glomerular Filtration Rate 49 BUN/Creatinine Ratio 23 H 0-20 Glucose Level 105 70-105 MG/DL Calcium Level 9.8 8.5-10.1 MG/DL Magnesium Level 1.6 L 1.8-2.4 MG/DL Total Bilirubin 0.4 0.1-1.0 MG/DL Aspartate Amino Transf (AST/SGOT) 21 5-34 U/L Alanine Aminotransferase (ALT/SGPT) 15 0-55 U/L Alkaline Phosphatase 91 40-136 U/L Troponin I < 0.30 <0.30 NG/ML Total Protein 7.3 6.4-8.2 GM/DL Albumin 3.9 3.2-4.5 GM/DL Thyroid Stimulating Hormone (TSH) 0.31 L 0.35-4.94 UIU/ML My Orders Orders - ZAYNAB AVILA APRN Cbc With Automated Diff (05/16/17 10:39) Comprehensive Metabolic Panel (05/16/17 10:39) Chest 1 View, Ap/Pa Only (05/16/17 10:39) Magnesium (05/16/17 10:39) Troponin I (05/16/17 10:39) Thyroid Stimulating Hormone (05/16/17 10:39) Free T4 (Free Thyroxine) (05/16/17 11:52) Vital Signs/I&O Vital Sign - Last 12Hours 05/16/17 09:57 Temp 98.2 Pulse 74 Resp 18 B/P (MAP) 160/70 Pulse Ox 97 O2 Delivery Room Air Blood Pressure Mean: 100 Diagnostic Imaging Diagonstic Imaging: CT Comments NAME: BILLY FERRARA [facility] REC#: [id number] PT STATUS: REG ER : 1940 PHYSICIAN: ZAYNAB AVILA APRN ADMIT DATE: 05/16/17/ER Draft Date of Exam:05/16/17 CHEST 1 VIEW, AP/PA ONLY EXAMINATION: Portable upright radiograph of the chest. INDICATION: Atrial fibrillation. Palpitations. FINDINGS: The lungs are hyperinflated. The heart size is enlarged. There is a similar slightly smaller opacity seen in the right infrahilar region noted when compared to 04/23/2017. This is seen on older exams including 08/14/2016 and could potentially relate to a nodule or scarring. No effusion or pneumothorax. Mediastinum and david appear unremarkable. IMPRESSION: Cardiomegaly. COPD. Slightly smaller right infrahilar opacity seen on multiple prior exams could relate to a nodule or scarring. Dictated on workstation # [id number] Dict: 05/16/17 1105 Trans: 05/16/17 1115 [facility] [id number] Interpreted by: CHUCK SAM MD Electronically signed by: Departure Impression Impression: Primary Impression: Paroxysmal atrial fibrillation Disposition: 01 HOME, SELF-CARE Condition: Stable Departure-Patient Inst. Decision time for Depature: 11:53 Referrals: NO,LOCAL PHYSICIAN (PCP/Family) Primary Care Physician Patient Instructions: NO INSTRUCTIONS GIVEN Copy Copies To 1: JIM OLIVO MD FACP [facility]; LUI KRUEGER MD, PETER J APRN May 16, 2017 11:04
--- NOTE | 2017-05-16 11:16 | Diagnostic Imaging Report ---
EXAMINATION: Portable upright radiograph of the chest. INDICATION: Atrial fibrillation. Palpitations. FINDINGS: The lungs are hyperinflated. The heart size is enlarged. There is a similar slightly smaller opacity seen in the right infrahilar region noted when compared to 04/23/2017. This is seen on older exams including 08/14/2016 and could potentially relate to a nodule or scarring. No effusion or pneumothorax. Mediastinum and david appear unremarkable. IMPRESSION: Cardiomegaly. COPD. Slightly smaller right infrahilar opacity seen on multiple prior exams could relate to a nodule or scarring. Dictated by: Dictated on workstation # [id number]
[2017-05-16 11:23] LABS: ALANINE AMINOTRANSFERASE 15 U/L (0-55); ALBUMIN 3.9 GM/DL (3.2-4.5); ANION GAP 9 MMOL/L (5-14); ASPARTATE AMINO TRANSFERASE 21 U/L (5-34); BILIRUBIN,TOTAL 0.4 MG/DL (0.1-1.0); BLOOD UREA NITROGEN 25 MG/DL (7-18); BUN/CREATININE RATIO 23 (0-20); CALCIUM 9.8 MG/DL (8.5-10.1); CARBON DIOXIDE 26 MMOL/L (21-32); CHLORIDE 105 MMOL/L (98-107); CREATININE SERUM 1.08 MG/DL (0.60-1.30); GFR ESTIMATED 49; GLUCOSE 105 MG/DL (70-105); HEMOLYSIS 2 (-100-29); ICTERUS 0.6 (-100-1.9); LIPEMIA 14 (-100-49); MAGNESIUM 1.6 MG/DL (1.8-2.4); POTASSIUM 3.5 MMOL/L (3.6-5.0); SODIUM 140 MMOL/L (135-145); TOTAL PROTEIN 7.3 GM/DL (6.4-8.2)
[2017-05-16 11:43] LABS: THYROID STIMULATING HORMONE 0.31 UIU/ML (0.35-4.94); TROPONIN I < 0.30 NG/ML (<0.30)
[2017-05-16 12:11] VITALS: BP 159/85
--- OUTSIDE RECORDS SUMMARY | 2017-05-20 13:38 | XMS REPORT | Continuity of Care Document ---
Author Author [facility] Organization [facility] Address Unknown Phone Unavailable Allergies Active Description Code Type Severity Reaction Onset Reported/Identified Relationship to Patient Clinical Status Yes Penicillins [id number] Drug Allergy Mild RASH 09/24/2010 Yes RUPAL Inhibitors [id number] Drug Allergy Unknown HIVES 2016 Yes atorvastatin [id number] Drug Allergy Unknown HIVES 2016 Yes iodine [id number] Drug Allergy Unknown HIVES 2016 Medications Problems Date Dx Coded Attending Type Code Diagnosis Diagnosed By 10/24/1140 SANDY MAJANO DO Ot M54.5 LOW BACK PAIN 10/24/1699 SANDY MAJANO DO Ot M54.5 LOW BACK PAIN 09/24/2010 Ot 053.9 09/24/2010 Ot 782.1 10/15/2012 Ot 729.81 SWELLING OF LIMB 10/15/2012 Ot 782.3 EDEMA 10/15/2012 Ot 793.19 OTHER NONSPECIFIC ABNORMAL FINDING OF GABY 05/28/2013 GISELLA HANLEY, KEVIN Hansen Ot 401.9 HYPERTENSION NOS 05/28/2013 KEVIN OBANDO MD Ot 780.4 DIZZINESS AND GIDDINESS 05/28/2013 KEVIN OBANDO MD Ot V58.69 OTH MED,LT,CURRENT USE 07/07/2013 ANNETTE HANLEY, ZULY Meade Ot 401.9 HYPERTENSION NOS 08/10/2013 MARLON STERLING MD Ot 241.0 NONTOX UNINODULAR GOITER 08/10/2013 MARLON STERLING MD Ot 272.4 HYPERLIPIDEMIA NEC/NOS 08/10/2013 MARLON STERLING MD Ot 275.2 DIS MAGNESIUM METABOLISM 08/10/2013 MARLON STERLING MD Ot 300.00 ANXIETY STATE NOS 08/10/2013 MARLON STERLING MD Ot 401.9 HYPERTENSION NOS 08/10/2013 MARLON STERLING MD Ot 414.01 CORONARY ATHEROSCLEROSIS OF [place] CORON 08/10/2013 MARLON STERLING MD Ot 426.3 LEFT BB BLOCK NEC 08/10/2013 MARLON STERLING MD Ot 428.0 CONGESTIVE HEART FAILURE NOS 08/10/2013 MARLON STERLING MD Ot 428.31 ACUTE DIASTOLIC HRT FAILURE 08/10/2013 MARLON STERLING MD Ot 593.9 RENAL URETERAL DIS NOS 08/10/2013 MARLON STERLING MD Ot 786.59 CHEST PAIN NEC 08/10/2013 MARLON STERLING MD Ot 793.11 SOLITARY PULMONARY NODULE 08/10/2013 MARLON STERLING MD Ot V03.82 PROPHYLACTIC VACC AGAINST STREPTOCOCCUS 08/10/2013 MARLON STERLING MD Ot V15.82 HISTORY OF TOBACCO USE 08/11/2013 KEVIN OBANDO MD Ot 401.9 HYPERTENSION NOS 08/13/2013 KEVIN OBANDO MD Ot 401.9 HYPERTENSION NOS 09/07/2013 MICHELLE MACHUCA MD Ot 272.4 HYPERLIPIDEMIA NEC/NOS 09/07/2013 MICHELLE MACHUCA MD Ot 275.2 DIS MAGNESIUM METABOLISM 09/07/2013 MICHELLE MAHCUCA MD Ot 285.9 ANEMIA NOS 09/07/2013 MICHELLE MACHUCA MD Ot 401.9 HYPERTENSION NOS 09/07/2013 MICHELLE MACHUCA MD Ot 414.01 CORONARY ATHEROSCLEROSIS OF [place] CORON 09/07/2013 MICHELLE MACHUCA MD Ot 427.31 ATRIAL FIBRILLATION 09/07/2013 MICHELLE MACHUCA MD Ot 428.0 CONGESTIVE HEART FAILURE NOS 09/07/2013 MICHELLE MACHUCA MD Ot 428.33 ACUTE CHRONIC DIASTOLIC HRT FAILURE 09/07/2013 MICHELLE MACHUCA MD Ot 458.9 HYPOTENSION NOS 09/07/2013 MICHELLE MACHUCA MD Ot 790.5 ABN SERUM ENZY LEVEL NEC 09/07/2013 MICHELLE MACHUCA MD Ot V04.81 ND FOR PROPHYLACTIC VACCIN AND INOCULATI 10/27/2013 SANDY MAJANO DO Ot 401.9 HYPERTENSION NOS 11/12/2014 GEOVANI HANLEY FACC, JIM OLIVIAP CCDS Ot 162.9 11/12/2014 GEOVANI HANLEY FACC, ALI FACP CCDS Ot 272.4 11/12/2014 GEOVANI HANLEY FACC, ALI FACP CCDS Ot 402.90 11/12/2014 GEOVANI HANLEY FACC, ALI FACP CCDS Ot 414.00 11/12/2014 GEOVANI HANLEY FACC, ALI FACP CCDS Ot 426.3 11/12/2014 GEOVANI HANLEY FACC, ALI FACP CCDS Ot 427.31 11/12/2014 GEOVANI HANLEY FACC, ALI FACP CCDS Ot 427.89 03/02/2015 KEVIN OBANDO MD Ot 401.9 HYPERTENSION NOS 03/02/2015 KEVIN OBANDO MD Ot 427.31 ATRIAL FIBRILLATION 05/05/2015 GEOVANI HANLEY FACC, ALI FACP CCDS Ot 272.4 05/05/2015 GEOVANI HANLEY FACC, ALI FACP CCDS Ot 402.90 05/05/2015 GEOVANI HANLEY FACC, ALI FACP CCDS Ot 414.00 05/05/2015 GEOVANI HANLEY FACC, ALI FACP CCDS Ot 426.3 05/05/2015 GEOVANI HANLEY FACC, ALI FACP CCDS Ot 427.31 01/05/2016 GEOVANI HANLEY FACC, ALI FACP CCDS Ot I10 01/05/2016 GEOVANI HANLEY FACC, ALI FACP CCDS Ot I25.10 01/05/2016 GEOVANI HANLEY FACC, ALI FACP CCDS Ot I44.7 01/05/2016 GEOVANI HANLEY FACC, ALI FACP CCDS Ot I48.0 01/05/2016 GEOVANI HANLEY FACC, ALI FACP CCDS Ot R00.2 01/17/2016 Ot 413.9 01/17/2016 Ot 785.2 01/17/2016 Ot 786.09 01/17/2016 Ot 786.50 01/17/2016 GEOVANI HANLEY FACC, ALI FACP CCDS Ot 272.4 01/17/2016 GEOVANI HANLEY FACC, ALI FACP CCDS Ot 401.9 01/17/2016 GEOVANI HANLEY FACC, ALI FACP CCDS Ot 414.01 01/17/2016 GEOVANI HANLEY FACC, ALI FACP CCDS Ot 786.09 01/17/2016 GEOVANI HANLEY FACC, ALI FACP CCDS Ot V58.69 01/17/2016 MARIZA BAEZ BOTTOM TURNER Ot 414.00 01/17/2016 MARIZA BAEZ BOTTOM TURNER Ot 426.3 01/17/2016 MAIRZA BAEZP Ot 427.1 01/17/2016 JAMSHIDMARIZA RUSESLL BOTTOM TURNER Ot 428.31 01/17/2016 Ot 401.9 01/17/2016 GEOVANI HANLEY FACC, ALI FACP CCDS Ot 402.90 01/17/2016 GEOVANI HANLEY FACC, ALI FACP CCDS Ot 414.00 01/17/2016 GEOVANI HANLEY FACC, ALI FACP CCDS Ot 426.3 01/17/2016 GEOVANI HANLEY FACC, ALI FACP CCDS Ot 427.31 01/17/2016 GEOVANI HANLEY FACC, ALI FACP CCDS Ot 272.4 01/17/2016 GEOVANI HANLEY FACC, ALI FACP CCDS Ot 402.90 01/17/2016 GEOVANI HANLEY FACC, ALI FACP CCDS Ot 414.00 01/17/2016 GEOVANI HANLEY FACC, ALI FACP CCDS Ot 426.3 01/17/2016 GEOVANI HANLEY FACC, ALI FACP CCDS Ot 427.31 01/17/2016 GEOVANI HANLEY FACC, ALI FACP CCDS Ot 414.00 01/17/2016 GEOVANI HANLEY FACC, ALI FACP CCDS Ot 426.3 01/17/2016 GEOVANI HANLEY FACC, ALI FACP CCDS Ot 427.31 01/17/2016 GEOVANI HANLEY FACC, ALI FACP CCDS Ot 785.1 01/17/2016 GEOVANI HANLEY FACC, ALI FACP CCDS Ot 272.4 01/17/2016 GEOVANI HANLEY FACC, ALI FACP CCDS Ot 402.90 01/17/2016 GEOVANI HANLEY FACC, ALI FACP CCDS Ot 414.00 01/17/2016 GEOVANI HANLEY FACC, ALI FACP CCDS Ot 426.3 01/17/2016 GEOVANI HANLEY FACC, ALI FACP CCDS Ot 427.31 01/17/2016 GEOVANI HANLEY FACC, ALI FACP CCDS Ot 785.1 01/17/2016 GEOVANI HANLEY FACC, ALI FACP CCDS Ot 162.9 01/17/2016 GEOVANI HANLEY FACC, ALI FACP CCDS Ot 272.4 01/17/2016 GEOVANI HANLEY FACC, ALI FACP CCDS Ot 402.90 01/17/2016 GEOVANI HANLEY FACC, ALI FACP CCDS Ot 414.00 01/17/2016 GEOVANI HANLEY FAC, ALI FACP CCDS Ot 426.3 01/17/2016 GEOVANI HANLEY FACC, ALI FACP CCDS Ot 427.31 01/17/2016 GEOVANI HANLEY FACC, ALI FACP CCDS Ot 427.89 01/17/2016 GEOVANI HANLEY FACC, ALI FACP CCDS Ot I10 01/17/2016 GEOVANI HANLEY FACC, ALI FACP CCDS Ot I25.10 01/17/2016 GEOVANI HANLEY FAC, ALI FACP CCDS Ot I44.7 01/17/2016 GEOVANI HANLEY FAC, ALI FACP CCDS Ot I48.0 01/17/2016 GEOVANI HANLEY FAC, ALI FACP CCDS Ot R00.2 01/25/2016 GEOVANI HANLEY FAC, ALI FACP CCDS Ot I10 01/25/2016 GEOVANI HANLEY FAC, ALI FACP CCDS Ot I25.10 01/25/2016 GEOVANI HANLEY FAC, ALI FACP CCDS Ot I44.7 01/25/2016 GEOVANI HANLEY FAC, ALI FACP CCDS Ot I48.0 01/25/2016 GEOVANI HANLEY FAC, ALI FACP CCDS Ot R00.2 02/02/2016 GEOVANI HANLEY FAC, ALI FACP CCDS Ot I10 02/02/2016 GEOVANI HANLEY [facility], ALI FACP CCDS Ot I25.10 02/02/2016 GEOVANI HANLEY FAC, ALI FACP CCDS Ot I44.7 02/02/2016 GEOVANI HANLEY FAC, ALI FACP CCDS Ot I48.0 02/02/2016 GEOVANI HANLEY FAC, ALI FACP CCDS Ot R00.2 02/09/2016 GEOVANI HANLEY FAC, ALI FACP CCDS Ot E78.4 02/09/2016 GEOVANI HANLEY FACC, ALI FACP CCDS Ot I10 02/09/2016 GEOVANI HANLEY FACC, ALI FACP CCDS Ot I25.10 02/09/2016 GEOVANI HANLEY FACC, ALI FACP CCDS Ot I48.0 02/21/2016 GEOVNAI HANLEY FACC, ALI FACP CCDS Ot E78.4 02/21/2016 GEOVANI HANLEY FACC, ALI FACP CCDS Ot I10 02/21/2016 GEOVANI HANLEY FACC, ALI FACP CCDS Ot I25.10 02/21/2016 GEOVANI HANLEY FACC, ALI FACP CCDS Ot I48.0 07/10/2016 DARIUS LAW MD Ot 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 07/10/2016 DARIUS LAW MD Ot E78.5 HYPERLIPIDEMIA, UNSPECIFIED 07/10/2016 DARIUS LAW MD Ot I10 ESSENTIAL (PRIMARY) HYPERTENSION 07/10/2016 DARIUS LAW MD Ot I11.0 HYPERTENSIVE HEART DISEASE WITH HEART FA 07/10/2016 DARIUS LAW MD Ot I25.10 ATHSCL HEART DISEASE OF [place] CORONARY 07/10/2016 DARIUS LAW MD Ot I44.7 LEFT BUNDLE-BRANCH BLOCK, UNSPECIFIED 07/10/2016 DARIUS LAW MD Ot I48.0 PAROXYSMAL ATRIAL FIBRILLATION 07/10/2016 DARIUS LAW MD Ot I50.33 ACUTE ON CHRONIC DIASTOLIC (CONGESTIVE) 07/10/2016 DARIUS LAW MD Ot J44.9 CHRONIC OBSTRUCTIVE PULMONARY DISEASE, U 07/10/2016 DARIUS LAW MD Ot J45.909 UNSPECIFIED ASTHMA, UNCOMPLICATED 07/10/2016 DARIUS LAW MD Ot R59.1 GENERALIZED ENLARGED LYMPH NODES 07/10/2016 DARIUS LAW MD Ot R91.8 OTHER NONSPECIFIC ABNORMAL FINDING OF GABY 07/10/2016 DARIUS LAW MD Ot Z85.118 PERSONAL HISTORY OF MALIGNANT NEOPLASM O 07/10/2016 DARIUS LAW MD Ot Z87.891 PERSONAL HISTORY OF NICOTINE DEPENDENCE 07/10/2016 DARIUS LAW MD Ot Z90.2 ACQUIRED ABSENCE OF LUNG [PART OF] 07/13/2016 GISELLA HANLEY, KEVIN A Ot I10 ESSENTIAL (PRIMARY) HYPERTENSION 07/13/2016 KEVIN OBANDO MD A Ot I50.32 CHRONIC DIASTOLIC (CONGESTIVE) HEART [place] 07/16/2016 KEVIN OBANDO MD A Ot I10 ESSENTIAL (PRIMARY) HYPERTENSION 07/16/2016 JUAN DIEGO OBANDO MDNT A Ot I50.32 CHRONIC DIASTOLIC (CONGESTIVE) HEART [place] 07/16/2016 KEVIN OBANDO MD A Ot I10 ESSENTIAL (PRIMARY) HYPERTENSION 07/16/2016 JUAN DIEGO OBANDO MDNT A Ot I50.32 CHRONIC DIASTOLIC (CONGESTIVE) HEART [place] 07/21/2016 KEVIN OBANDO MD Ot I10 ESSENTIAL (PRIMARY) HYPERTENSION 07/21/2016 KEVIN OBANDO MD Ot I50.32 CHRONIC DIASTOLIC (CONGESTIVE) HEART [place] 08/03/2016 KEVIN OBANDO MD A Ot I10 ESSENTIAL (PRIMARY) HYPERTENSION 08/03/2016 KEVIN OBANDO MD A Ot J44.9 CHRONIC OBSTRUCTIVE PULMONARY DISEASE, U 08/03/2016 KEVIN OBANDO MD A Ot N39.0 URINARY TRACT INFECTION, SITE NOT SPECIF 08/03/2016 KEVIN OBANDO MD A Ot Z79.82 FDC (CURRENT) USE OF ASPIRIN 08/03/2016 KEVIN OBANDO MD A Ot Z79.899 OTHER FDC (CURRENT) DRUG THERAPY 08/03/2016 KEVIN OBANDO MD A Ot Z87.891 PERSONAL HISTORY OF NICOTINE DEPENDENCE 08/06/2016 KEVIN OBANDO MD Ot I10 ESSENTIAL (PRIMARY) HYPERTENSION 08/06/2016 KEVIN OBANDO MD Ot J44.9 CHRONIC OBSTRUCTIVE PULMONARY DISEASE, U 08/06/2016 KEVIN OBANDO MD Ot N39.0 URINARY TRACT INFECTION, SITE NOT SPECIF 08/06/2016 KEVIN OBANDO MD Ot Z79.82 FDC (CURRENT) USE OF ASPIRIN 08/06/2016 KEVIN OBANDO MD A Ot Z79.899 OTHER WALLPAPER HANGER (CURRENT) DRUG THERAPY 08/06/2016 JUAN DIEGO OBANDO MDNT A Ot Z87.891 PERSONAL HISTORY OF NICOTINE DEPENDENCE 08/14/2016 Ot 413.9 ANGINA PECTORIS NEC/NOS 08/14/2016 Ot 785.2 CARDIAC MURMURS NEC 08/14/2016 Ot 786.09 RESPIRATORY ABNORM NEC 08/14/2016 Ot 786.50 CHEST PAIN NOS 08/14/2016 GEOVANI HANLEY FACC, JIM FACP CCDS Ot 272.4 HYPERLIPIDEMIA NEC/NOS 08/14/2016 GEOVANI HANLEY FACC, JIM FACP CCDS Ot 401.9 HYPERTENSION NOS 08/14/2016 JIM OLIVO MD, FACC FACP CCDS Ot 414.01 CORONARY ATHEROSCLEROSIS OF [place] CORON 08/14/2016 JIM OLIVO MD, FACC FACP CCDS Ot 786.09 RESPIRATORY ABNORM NEC 08/14/2016 JIM OLIVO MD, FACC FACP CCDS Ot V58.69 OTH MED,LT,CURRENT USE 08/14/2016 MARIZA BAEZ BOTTOM TURNER Ot 414.00 CORON ATHEROSCLER NOS TYPE VESSEL, NATIV 08/14/2016 MARIZA BAEZ BOTTOM TURNER Ot 426.3 LEFT BB BLOCK NEC 08/14/2016 MARIZA BAEZ BOTTOM TURNER Ot 427.1 PAROX VENTRIC TACHYCARD 08/14/2016 MARIZA BAEZ BOTTOM TURNER Ot 428.31 ACUTE DIASTOLIC HRT FAILURE 08/14/2016 Ot 401.9 HYPERTENSION NOS 08/14/2016 GEOVANI HANLEY FACC, ALI FACP CCDS Ot 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 08/14/2016 GEOVANI OLIVIAC, ALI FACP CCDS Ot 414.00 CORON ATHEROSCLER NOS TYPE VESSEL, NATIV 08/14/2016 GEOVANI HANLEY FACC, ALI FACP CCDS Ot 426.3 LEFT BB BLOCK NEC 08/14/2016 GEOVANI HANLEY FACC, ALI FACP CCDS Ot 427.31 ATRIAL FIBRILLATION 08/14/2016 GEOVANI HANLEY FACC, ALI FACP CCDS Ot 272.4 HYPERLIPIDEMIA NEC/NOS 08/14/2016 GEOVANI HANLEY FACC, ALI FACP CCDS Ot 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 08/14/2016 GEOVANI OLIVIAC, ALI FACP CCDS Ot 414.00 CORON ATHEROSCLER NOS TYPE VESSEL, NATIV 08/14/2016 GEOVANI HANLEY FACC, ALI FACP CCDS Ot 426.3 LEFT BB BLOCK NEC 08/14/2016 GEOVANI HANLEY FACC, ALI FACP CCDS Ot 427.31 ATRIAL FIBRILLATION 08/14/2016 GEOVANI HANLEY FACC, ALI FACP CCDS Ot 414.00 CORON ATHEROSCLER NOS TYPE VESSEL, NATIV 08/14/2016 GEOVANI HANLEY FACC, ALI FACP CCDS Ot 426.3 LEFT BB BLOCK NEC 08/14/2016 GEOVANI OLIVIAC, ALI FACP CCDS Ot 427.31 ATRIAL FIBRILLATION 08/14/2016 GEOVANI HANLEY FACC, ALI FACP CCDS Ot 785.1 PALPITATIONS 08/14/2016 GEOVANI OLIVIAC, ALI FACP CCDS Ot 272.4 HYPERLIPIDEMIA NEC/NOS 08/14/2016 GEOVANI HANLEY FACC, ALI FACP CCDS Ot 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 08/14/2016 GEOVANI HANLEY FACC, ALI FACP CCDS Ot 414.00 CORON ATHEROSCLER NOS TYPE VESSEL, NATIV 08/14/2016 GEOVANI HANLEY FACC, ALI FACP CCDS Ot 426.3 LEFT BB BLOCK NEC 08/14/2016 GEOVANI OLIVIAC, ALI FACP CCDS Ot 427.31 ATRIAL FIBRILLATION 08/14/2016 GEOVANI HANLEY FACC, ALI FACP CCDS Ot 785.1 PALPITATIONS 08/14/2016 GEOVANI OLIVIAC, ALI FACP CCDS Ot 162.9 MAL DEBBIE BRONCH/LUNG NOS 08/14/2016 GEOVANI OLIVIAC, ALI FACP CCDS Ot 272.4 HYPERLIPIDEMIA NEC/NOS 08/14/2016 GEOVANI HANLEY FACC, ALI FACP CCDS Ot 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 08/14/2016 GEOVANI HANLEY FACC, ALI FACP CCDS Ot 414.00 CORON ATHEROSCLER NOS TYPE VESSEL, NATIV 08/14/2016 GEOVANI HANLEY FACC, ALI FACP CCDS Ot 426.3 LEFT BB BLOCK NEC 08/14/2016 GEOVANI HANLEY FACC, ALI FACP CCDS Ot 427.31 ATRIAL FIBRILLATION 08/14/2016 GEOVANI HANLEY FACC, ALI FACP CCDS Ot 427.89 CARDIAC DYSRHYTHMIAS NEC 08/14/2016 GEOVANI HANLEY FACC, ALI FACP CCDS Ot I10 ESSENTIAL (PRIMARY) HYPERTENSION 08/14/2016 GEOVANI HANLEY FACC, ALI FACP CCDS Ot I25.10 ATHSCL HEART DISEASE OF [place] CORONARY 08/14/2016 GEOVANI HANLEY FACC ALI FACP CCDS Ot I44.7 LEFT BUNDLE-BRANCH BLOCK, UNSPECIFIED 08/14/2016 GEOVANI HANLEY FACC, ALI FACP CCDS Ot I48.0 PAROXYSMAL ATRIAL FIBRILLATION 08/14/2016 GEOVANI HANLEY FACC, ALI FACP CCDS Ot R00.2 PALPITATIONS 08/14/2016 GEOVANI HANLEY FACC, ALI FACP CCDS Ot E78.4 OTHER HYPERLIPIDEMIA 08/14/2016 GEOVANI HANLEY FACC, ALI FACP CCDS Ot I10 ESSENTIAL (PRIMARY) HYPERTENSION 08/14/2016 GEOVANI HANLEY FACC, ALI FACP CCDS Ot I25.10 ATHSCL HEART DISEASE OF [place] CORONARY 08/14/2016 GEOVANI HANLEY FACC, ALI FACP CCDS Ot I48.0 PAROXYSMAL ATRIAL FIBRILLATION 08/15/2016 SANDY MAJANO DO Ot I50.21 ACUTE SYSTOLIC (CONGESTIVE) HEART FAILUR 08/15/2016 MELECIO PATTON, SANDY S Ot M54.5 LOW BACK PAIN 08/20/2016 MELECIO DO, SANDY S Ot M54.5 LOW BACK PAIN 08/24/2016 MELECIO DO, SANDY Butler Ot M54.5 LOW BACK PAIN 08/29/2016 MELECIO PATTON, SANDY Butler Ot M54.5 LOW BACK PAIN 09/05/2016 SANDY MAJANO DO Ot I50.21 ACUTE SYSTOLIC (CONGESTIVE) HEART FAILUR 09/05/2016 MELECIO PATTON, SANDY Butler Ot M54.5 LOW BACK PAIN 09/12/2016 MELECIO PATTON, SANDY Butler Ot I50.21 ACUTE SYSTOLIC (CONGESTIVE) HEART FAILUR 09/12/2016 SANDY MAJANO DO Ot M54.5 LOW BACK PAIN 09/18/2016 SANDY MAJANO DO Ot M54.5 LOW BACK PAIN 10/14/2016 ZAYNAB AVILA APRN Ot I10 ESSENTIAL (PRIMARY) HYPERTENSION 10/14/2016 ZAYNAB AVILA HOST/HOSTESS Ot I16.0 HYPERTENSIVE URGENCY 10/14/2016 ZAYNAB AVILA HOST/HOSTESS Ot J44.9 CHRONIC OBSTRUCTIVE PULMONARY DISEASE, U 10/14/2016 ZAYNAB AVILA HOST/HOSTESS Ot Z79.82 WALLPAPER HANGER (CURRENT) USE OF ASPIRIN 10/14/2016 ZAYNAB AVILA HOST/HOSTESS Ot Z79.899 OTHER FDC (CURRENT) DRUG THERAPY 10/14/2016 ZAYNAB AVILA HOST/HOSTESS Ot Z85.118 PERSONAL HISTORY OF MALIGNANT NEOPLASM O 10/16/2016 SANDY MAJANO DO S Ot M54.5 LOW BACK PAIN 10/24/2016 SANDY MAJANO DO S Ot M54.5 LOW BACK PAIN 10/31/2016 MELECIO PATTON, SANDY S Ot M54.5 LOW BACK PAIN 11/15/2016 SANDY MAJANO DO Ot M54.5 LOW BACK PAIN 2016 Ot 413.9 ANGINA PECTORIS NEC/NOS 2016 Ot 785.2 CARDIAC MURMURS NEC 2016 Ot 786.09 RESPIRATORY ABNORM NEC 2016 Ot 786.50 CHEST PAIN NOS 2016 GEOVANI HANLEY FACC, JIM SCHULTE CCDS Ot 272.4 HYPERLIPIDEMIA NEC/NOS 2016 GEOVANI HANLEY FACC, JIM SCHULTE CCDS Ot 401.9 HYPERTENSION NOS 2016 GEOVANI HANLEY FACC, ALI FACP CCDS Ot 414.01 CORONARY ATHEROSCLEROSIS OF [place] CORON 2016 GEOVANI HANLEY FACC, ALI FACP CCDS Ot 786.09 RESPIRATORY ABNORM NEC 2016 GEOVANI HANLEY FACC, ALI FACP CCDS Ot V58.69 OTH MED,LT,CURRENT USE 2016 BAIMA, MARIZA L BOTTOM TURNER Ot 414.00 CORON ATHEROSCLER NOS TYPE VESSEL, NATIV 2016 BAIMA, MARIZA L BOTTOM TURNER Ot 426.3 LEFT BB BLOCK NEC 2016 BAIMA, MARIZA L BOTTOM TURNER Ot 427.1 PAROX VENTRIC TACHYCARD 2016 BAIMA, MARIZA L BOTTOM TURNER Ot 428.31 ACUTE DIASTOLIC HRT FAILURE 2016 Ot 401.9 HYPERTENSION NOS 2016 GEOVANI HANLEY FACC, ALI FACP CCDS Ot 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 2016 GEOVANI HANLEY FACC, ALI FACP CCDS Ot 414.00 CORON ATHEROSCLER NOS TYPE VESSEL, NATIV 2016 GEOVANI HANLEY FACC, ALI FACP CCDS Ot 426.3 LEFT BB BLOCK NEC 2016 GEOVANI HANLEY FACC, ALI FACP CCDS Ot 427.31 ATRIAL FIBRILLATION 2016 GEOVANI HANLEY FACC, ALI FACP CCDS Ot 272.4 HYPERLIPIDEMIA NEC/NOS 2016 GEOVANI HANLEY FACC, ALI FACP CCDS Ot 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 2016 GEOVANI HANLEY FACC, JIM FACP CCDS Ot 414.00 CORON ATHEROSCLER NOS TYPE VESSEL, NATIV 2016 GEOVANI HANLEY FACC, ALI FACP CCDS Ot 426.3 LEFT BB BLOCK NEC 2016 GEOVANI HANLEY FACC, ALI FACP CCDS Ot 427.31 ATRIAL FIBRILLATION 2016 GEOVANI HANLEY FACC, ALI FACP CCDS Ot 414.00 CORON ATHEROSCLER NOS TYPE VESSEL, NATIV 2016 GEOVANI HANLEY FACC, ALI FACP CCDS Ot 426.3 LEFT BB BLOCK NEC 2016 GEOVANI HANLEY FACC, ALI FACP CCDS Ot 427.31 ATRIAL FIBRILLATION 2016 GEOVANI HANLEY FACC, ALI FACP CCDS Ot 785.1 PALPITATIONS 2016 GEOVANI HANLEY FACC, ALI FACP CCDS Ot 272.4 HYPERLIPIDEMIA NEC/NOS 2016 GEOVANI HANLEY FACC, ALI FACP CCDS Ot 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 2016 GEOVANI OLIVIAC, ALI FACP CCDS Ot 414.00 CORON ATHEROSCLER NOS TYPE VESSEL, NATIV 2016 GEOVANI OLIVIAC, ALI FACP CCDS Ot 426.3 LEFT BB BLOCK NEC 2016 GEOVANI HANLEY FACC, ALI FACP CCDS Ot 427.31 ATRIAL FIBRILLATION 2016 GEOVANI HANLEY FACC, ALI FACP CCDS Ot 785.1 PALPITATIONS 2016 GEOVANI HANLEY FACC, ALI FACP CCDS Ot 162.9 MAL DEBBIE BRONCH/LUNG NOS 2016 GEOVANI HANLEY FACC, ALI FACP CCDS Ot 272.4 HYPERLIPIDEMIA NEC/NOS 2016 GEOVANI HANLEY FACC, ALI FACP CCDS Ot 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 2016 GEOVANI HANLEY FACC, ALI FACP CCDS Ot 414.00 CORON ATHEROSCLER NOS TYPE VESSEL, NATIV 2016 GEOVANI HANLEY FACC, ALI FACP CCDS Ot 426.3 LEFT BB BLOCK NEC 2016 GEOVANI HANLEY FACC, ALI FACP CCDS Ot 427.31 ATRIAL FIBRILLATION 2016 GEOVANI HANLEY FACC, ALI FACP CCDS Ot 427.89 CARDIAC DYSRHYTHMIAS NEC 2016 GEOVANI HANLEY FACC, JIM FACP CCDS Ot I10 ESSENTIAL (PRIMARY) HYPERTENSION 2016 GEOVANI HANLEY FACC, ALI FACP CCDS Ot I25.10 ATHSCL HEART DISEASE OF [place] CORONARY 2016 GEOVANI HANLEY FACC, ALI FACP CCDS Ot I44.7 LEFT BUNDLE-BRANCH BLOCK, UNSPECIFIED 2016 GEOVANI HANLEY FACC, ALI FACP CCDS Ot I48.0 PAROXYSMAL ATRIAL FIBRILLATION 2016 GEOVANI HANLEY FACC, ALI FACP CCDS Ot R00.2 PALPITATIONS 2016 GEOVANI HANLEY FACC, ALI FACP CCDS Ot E78.4 OTHER HYPERLIPIDEMIA 2016 GEOVANI HANLEY FACC, ALI FACP CCDS Ot I10 ESSENTIAL (PRIMARY) HYPERTENSION 2016 GEOVANI HANLEY [facility] CCDS Ot I25.10 ATHSCL HEART DISEASE OF [place] CORONARY 2016 GEOVANI HANLEY [facility] CCDS Ot I48.0 PAROXYSMAL ATRIAL FIBRILLATION 2016 SANDY MAJANO DO Ot I50.21 ACUTE SYSTOLIC (CONGESTIVE) HEART FAILUR 2016 SANDY MAJANO DO Ot M54.5 LOW BACK PAIN 2016 Ot 401.9 HYPERTENSION NOS 2016 ROMAN DO, JASPREET K Ot C34.90 MALIGNANT NEOPLASM OF [facility] PART OF [facility] 2016 ROMAN DO, JASPREET K Ot I10 ESSENTIAL (PRIMARY) HYPERTENSION 2016 ROMAN DO, JASPREET K Ot I16.0 HYPERTENSIVE URGENCY 2016 ROMAN DO, JASPREET K Ot I48.2 CHRONIC ATRIAL FIBRILLATION 2016 ROMAN DO, JASPREET K Ot I50.9 HEART FAILURE, UNSPECIFIED 2016 ROMAN DO, JASPREET K Ot Z79.01 WALLPAPER HANGER (CURRENT) USE OF ANTICOAGULANT 2016 ROMAN DO, JASPREET K Ot Z79.82 FDC (CURRENT) USE OF ASPIRIN 2016 ROMAN DO, JASPREET K Ot Z79.899 OTHER WALLPAPER HANGER (CURRENT) DRUG THERAPY 2016 ROMAN DO, JASPREET K Ot Z87.891 PERSONAL HISTORY OF NICOTINE DEPENDENCE 12/12/2016 ROMAN DO, JASPREET K Ot C34.90 MALIGNANT NEOPLASM OF [facility] 12/12/2016 ROMAN DO, JASPREET K Ot I10 ESSENTIAL (PRIMARY) HYPERTENSION 12/12/2016 ROMAN DO, JASPREET K Ot I16.0 HYPERTENSIVE URGENCY 12/12/2016 ROMAN DO, JASPREET K Ot I48.2 CHRONIC ATRIAL FIBRILLATION 12/12/2016 ROMAN DO, JASPREET K Ot I50.9 HEART FAILURE, UNSPECIFIED 12/12/2016 ROMAN DO, JASPREET K Ot Z79.01 FDC (CURRENT) USE OF ANTICOAGULANT 12/12/2016 ROMAN DO, JASPREET K Ot Z79.82 WALLPAPER HANGER (CURRENT) USE OF ASPIRIN 12/12/2016 ROMAN DO, JASPREET K Ot Z79.899 OTHER FDC (CURRENT) DRUG THERAPY 12/12/2016 ROMAN JASPREET Ot Z87.891 PERSONAL HISTORY OF NICOTINE DEPENDENCE 03/08/2017 MARIA GUADALUPE VELASQUEZ DO Ot E87.5 HYPERKALEMIA 03/08/2017 MARIA GUADALUPE VELASQUEZ DO Ot F31.9 BIPOLAR DISORDER, UNSPECIFIED 03/08/2017 MARIA GUADALUPE VELASQUEZ DO Ot F41.9 ANXIETY DISORDER, UNSPECIFIED 03/08/2017 MARIA GUADALUPE VELASQUEZ DO Ot G81.91 HEMIPLEGIA, UNSPECIFIED AFFECTING RIGHT 03/08/2017 MARIA GUADALUPE VELASQUEZ DO Ot I11.0 HYPERTENSIVE HEART DISEASE WITH HEART FA 03/08/2017 MARIA GUADALUPE VELASQUEZ DO Ot I25.10 ATHSCL HEART DISEASE OF [place] CORONARY 03/08/2017 MARIA GUADALUPE VELASQUEZ DO Ot I48.91 UNSPECIFIED ATRIAL FIBRILLATION 03/08/2017 AMRITA VELASQUEZ DOI Ot I48.92 UNSPECIFIED ATRIAL FLUTTER 03/08/2017 MARIA GUADALUPE VELASQUEZ DO Ot I50.30 UNSPECIFIED DIASTOLIC (CONGESTIVE) HEART 03/08/2017 MARIA GUADALUPE VELASQUEZ DO Ot J44.9 CHRONIC OBSTRUCTIVE PULMONARY DISEASE, U 03/08/2017 MARIA GUADALUPE VELASQUEZ DO Ot N28.9 DISORDER OF KIDNEY AND URETER, UNSPECIFI 03/08/2017 MARIA GUADALUPE VELASQUEZ DO Ot N39.0 URINARY TRACT INFECTION, SITE NOT SPECIF 03/08/2017 MARIA GUADALUPE VELASQUEZ DO Ot R06.02 SHORTNESS OF BREATH 03/08/2017 MARIA GUADALUPE VELASQUEZ DO Ot R27.0 ATAXIA, UNSPECIFIED 03/08/2017 MARIA GUADALUPE VELASQUEZ DO Ot R29.702 NIHSS SCORE 2 03/08/2017 MARIA GUADALUPE VELASQUEZ DO Ot R42 DIZZINESS AND GIDDINESS 03/08/2017 MARIA GUADALUPE VELASQUEZ DO Ot R47.1 DYSARTHRIA AND ANARTHRIA 03/08/2017 MARIA GUADALUPE VELASQUEZ DO Ot R51 HEADACHE 03/08/2017 MARIA GUADALUPE VELASQUEZ DO Ot Z79.01 WALLPAPER HANGER (CURRENT) USE OF ANTICOAGULANT 03/08/2017 MARIA GUADALUPE VELASQUEZ DO Ot Z85.118 PERSONAL HISTORY OF MALIGNANT NEOPLASM O 03/08/2017 MARIA GUADALUPE VELASQUEZ DO Ot Z87.891 PERSONAL HISTORY OF NICOTINE DEPENDENCE 03/08/2017 MARIA GUADALUPE VELASQUEZ DO Ot Z90.2 ACQUIRED ABSENCE OF LUNG [PART OF] 03/08/2017 MARIA GUADALUPE VELASQUEZ DO Ot E87.5 HYPERKALEMIA 03/08/2017 MARIA GUADALUPE VELASQUEZ DO Ot F31.9 BIPOLAR DISORDER, UNSPECIFIED 03/08/2017 MARIA GUADALUPE VELASQUEZ DO Ot F41.9 ANXIETY DISORDER, UNSPECIFIED 03/08/2017 MARIA GUADALUPE VELASQUEZ DO Ot G43.909 MIGRAINE, UNSP, NOT INTRACTABLE, WITHOUT 03/08/2017 AMRITA VELASQUEZ DOI Ot G45.9 TRANSIENT CEREBRAL ISCHEMIC ATTACK, UNSP 03/08/2017 AMRITA VELASQUEZ DOI Ot G81.91 HEMIPLEGIA, UNSPECIFIED AFFECTING RIGHT 03/08/2017 AMRITA VELASQUEZ DOI Ot I11.0 HYPERTENSIVE HEART DISEASE WITH HEART FA 03/08/2017 MARIA GUADALUPE VELASQUEZ DO Ot I25.10 ATHSCL HEART DISEASE OF [place] CORONARY 03/08/2017 AMRITA VELASQUEZ DOI Ot I48.91 UNSPECIFIED ATRIAL FIBRILLATION 03/08/2017 AMRITA VELASQUEZ DOI Ot I48.92 UNSPECIFIED ATRIAL FLUTTER 03/08/2017 AMRITA VELASQUEZ DOI Ot I50.30 UNSPECIFIED DIASTOLIC (CONGESTIVE) HEART 03/08/2017 AMRITA VELASQUEZ DOI Ot I50.31 ACUTE DIASTOLIC (CONGESTIVE) HEART FAILU 03/08/2017 MARIA GUADALUPE VELASQUEZ DO Ot J44.9 CHRONIC OBSTRUCTIVE PULMONARY DISEASE, U 03/08/2017 AMRITA VELASQUEZ DOI Ot N17.9 ACUTE KIDNEY FAILURE, UNSPECIFIED 03/08/2017 AMRITA VELASQUEZ DOI Ot N28.9 DISORDER OF KIDNEY AND URETER, UNSPECIFI 03/08/2017 MARIA GUADALUPE VELASQUEZ DO Ot N39.0 URINARY TRACT INFECTION, SITE NOT SPECIF 03/08/2017 MARIA GUADALUPE VELASQUEZ DO Ot R06.02 SHORTNESS OF BREATH 03/08/2017 AMRITA VELASQUEZ DOI Ot R27.0 ATAXIA, UNSPECIFIED 03/08/2017 MARIA GUADALUPE VELASQUEZ DO Ot R29.702 NIHSS SCORE 2 03/08/2017 MARIA GUADALUPE VELASQUEZ DO Ot R42 DIZZINESS AND GIDDINESS 03/08/2017 MARIA GUADALUPE VELASQUEZ DO Ot R47.1 DYSARTHRIA AND ANARTHRIA 03/08/2017 AMRITA VELASQUEZ DOI Ot R51 HEADACHE 03/08/2017 MARIA GUADALUPE VELASQUEZ DO Ot Z79.01 WALLPAPER HANGER (CURRENT) USE OF ANTICOAGULANT 03/08/2017 MARIA GUADALUPE VELASQUEZ DO Ot Z85.118 PERSONAL HISTORY OF MALIGNANT NEOPLASM O 03/08/2017 MARIA GUADALUPE VELASQUEZ DO Ot Z87.891 PERSONAL HISTORY OF NICOTINE DEPENDENCE 03/08/2017 MARIA GUADALUPE VELASQUEZ DO Ot Z90.2 ACQUIRED ABSENCE OF LUNG [PART OF] 03/28/2017 JASPREET OWENS DO K Ot F17.210 NICOTINE DEPENDENCE, CIGARETTES, UNCOMPL 03/28/2017 SHABBIR OWENS DOA K Ot F31.9 BIPOLAR DISORDER, UNSPECIFIED 03/28/2017 ROMAN PATTON, JASPREET K Ot F41.9 ANXIETY DISORDER, UNSPECIFIED 03/28/2017 SHABBIR OWENS DOA K Ot I16.0 HYPERTENSIVE URGENCY 03/28/2017 ROMAN PATTON, JASPREET K Ot I25.10 ATHSCL HEART DISEASE OF [place] CORONARY 03/28/2017 ROMAN PATTON JASPREET K Ot I48.2 CHRONIC ATRIAL FIBRILLATION 03/28/2017 ROMAN PATTON JASPREET K Ot R94.8 ABNORMAL RESULTS OF FUNCTION STUDIES OF 03/28/2017 JASPREET OWENS DO K Ot Z85.118 PERSONAL HISTORY OF MALIGNANT NEOPLASM O 03/31/2017 JASPREET OWENS DO K Ot F17.210 NICOTINE DEPENDENCE, CIGARETTES, UNCOMPL 03/31/2017 SHABBIR OWENS DOA K Ot F31.9 BIPOLAR DISORDER, UNSPECIFIED 03/31/2017 ROMAN PATTON, JASPREET K Ot F41.9 ANXIETY DISORDER, UNSPECIFIED 03/31/2017 ROMAN PATTON, JASPREET K Ot I16.0 HYPERTENSIVE URGENCY 03/31/2017 ROMAN PATTON, JASPREET K Ot I25.10 ATHSCL HEART DISEASE OF [place] CORONARY 03/31/2017 ROMAN PATTON, JASPREET K Ot I48.2 CHRONIC ATRIAL FIBRILLATION 03/31/2017 ROMAN , JASPREET K Ot R94.8 ABNORMAL RESULTS OF FUNCTION STUDIES OF 03/31/2017 JASPREET OWENS DO K Ot Z85.118 PERSONAL HISTORY OF MALIGNANT NEOPLASM O 04/13/2017 DARIUS LAW MD Ot I10 ESSENTIAL (PRIMARY) HYPERTENSION 04/13/2017 DARIUS LAW MD, Ot I25.10 ATHSCL HEART DISEASE OF [place] CORONARY 04/13/2017 DARIUS LAW MD Ot I48.2 CHRONIC ATRIAL FIBRILLATION 04/13/2017 DARIUS LAW MD Ot J44.9 CHRONIC OBSTRUCTIVE PULMONARY DISEASE, U 04/13/2017 DARIUS LAW MD Ot Z79.01 W[employer] HANGER (CURRENT) USE OF ANTICOAGULANT 04/13/2017 DARIUS LAW MD Ot Z79.82 [facility] (CURRENT) USE OF ASPIRIN 04/13/2017 DARIUS LAW MD Ot Z79.899 OTHER [facility] (CURRENT) DRUG THERAPY 04/13/2017 DARIUS LAW MD Ot Z87.891 PERSONAL HISTORY OF NICOTINE DEPENDENCE 04/24/2017 MARIA GUADALUPE VELASQUEZ DO Ot 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 04/24/2017 MARIA GUADALUPE VELASQUEZ DO Ot E78.5 HYPERLIPIDEMIA, UNSPECIFIED 04/24/2017 MARIA GUADALUPE VELASQUEZ DO Ot E83.42 HYPOMAGNESEMIA 04/24/2017 AMRITA VELASQUEZ DOI Ot E87.6 HYPOKALEMIA 04/24/2017 MARIA GUADALUPE VELASQUEZ DO Ot F32.9 MAJOR DEPRESSIVE DISORDER, SINGLE EPISOD 04/24/2017 MARIA GUADALUPE VELASQUEZ DO Ot F41.9 ANXIETY DISORDER, UNSPECIFIED 04/24/2017 MARIA GUADALUPE VELASQUEZ DO Ot I08.1 RHEUMATIC DISORDERS OF BOTH [place] AND T 04/24/2017 AMRITA VELASQUEZ DOI Ot I11.0 HYPERTENSIVE HEART DISEASE WITH HEART FA 04/24/2017 AMRITA VELASQUEZ DOI Ot I25.10 ATHSCL HEART DISEASE OF [place] CORONARY 04/24/2017 AMRITA VELASQUEZ DOI Ot I44.7 LEFT BUNDLE-BRANCH BLOCK, UNSPECIFIED 04/24/2017 MARIA GUADALUPE VELASQUEZ DO Ot I48.0 PAROXYSMAL ATRIAL FIBRILLATION 04/24/2017 AMRITA VELASQUEZ DOI Ot I50.32 CHRONIC DIASTOLIC (CONGESTIVE) HEART [place] 04/24/2017 MARIA GUADALUPE VELASQUEZ DO Ot J44.9 CHRONIC OBSTRUCTIVE PULMONARY DISEASE, U 04/24/2017 MARIA GUADALUPE VELASQUEZ DO Ot M19.91 PRIMARY OSTEOARTHRITIS, UNSPECIFIED SITE 04/24/2017 MARIA GUADALUPE VELASQUEZ DO Ot M54.9 DORSALGIA, UNSPECIFIED 04/24/2017 MARIA GUADALUPE VELASQUEZ DO Ot R00.1 BRADYCARDIA, UNSPECIFIED 04/24/2017 MARIA GUADALUPE VELASQUEZ DO Ot Z85.118 PERSONAL HISTORY OF MALIGNANT NEOPLASM O 04/24/2017 VELASQUEZ DO, MARIA GUADALUPE Ot Z86.73 PRSNL HX OF TIA (TIA), AND CEREB INFRC W 04/24/2017 VELASQUEZ DO MARIA GUADALUPE Ot Z87.891 PERSONAL HISTORY OF NICOTINE DEPENDENCE 04/24/2017 RON PATTON MARIA GUADALUPE Ot Z90.2 ACQUIRED ABSENCE OF LUNG [PART OF] 04/29/2017 RON PATTON MARIA GUADALUPE Ot 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 04/29/2017 RON DO MARIA GUADALUPE Ot E78.5 HYPERLIPIDEMIA, UNSPECIFIED 04/29/2017 VELASQUEZ DO MARIA GUADALUPE Ot E83.42 HYPOMAGNESEMIA 04/29/2017 VELASQUEZ DO MARIA GUADALUPE Ot E87.6 HYPOKALEMIA 04/29/2017 RON PATTON MARIA GUADALUPE Ot F32.9 MAJOR DEPRESSIVE DISORDER, SINGLE EPISOD 04/29/2017 RON DO MARIA GUADALUPE Ot F41.9 ANXIETY DISORDER, UNSPECIFIED 04/29/2017 RON PATTON MARIA GUADALUPE Ot I08.1 RHEUMATIC DISORDERS OF BOTH [place] AND T 04/29/2017 RON DO MARIA GUADALUPE Ot I11.0 HYPERTENSIVE HEART DISEASE WITH HEART FA 04/29/2017 RON PATTON MARIA GUADALUPE Ot I25.10 ATHSCL HEART DISEASE OF [place] CORONARY 04/29/2017 RON PATTON MARIA GUADALUPE Ot I44.7 LEFT BUNDLE-BRANCH BLOCK, UNSPECIFIED 04/29/2017 RON PATTON MARIA GUADALUPE Ot I48.0 PAROXYSMAL ATRIAL FIBRILLATION 04/29/2017 RON PATTON MARIA GUADALUPE Ot I50.32 CHRONIC DIASTOLIC (CONGESTIVE) HEART DOMING[place] 04/29/2017 RON PATTON MARIA GUADALUPE Ot J44.9 CHRONIC OBSTRUCTIVE PULMONARY DISEASE, U 04/29/2017 RON DO MARIA GUADALUPE Ot M19.91 PRIMARY OSTEOARTHRITIS, UNSPECIFIED SITE 04/29/2017 VELASQUEZ DO MARIA GUADALUPE Ot M54.9 DORSALGIA, UNSPECIFIED 04/29/2017 RON DO MARIA GUADALUPE Ot R00.1 BRADYCARDIA, UNSPECIFIED 04/29/2017 RON DO MARIA GUADALUPE Ot Z85.118 PERSONAL HISTORY OF MALIGNANT NEOPLASM O 04/29/2017 RON DO MARIA GUADALUPE Ot Z86.73 PRSNL HX OF TIA (TIA), AND CEREB INFRC W 04/29/2017 RON DO MARIA GUADALUPE Ot Z87.891 PERSONAL HISTORY OF NICOTINE DEPENDENCE 04/29/2017 AMRITA VELASQUEZ DOI Ot Z90.2 ACQUIRED ABSENCE OF LUNG [PART OF] 04/29/2017 AMRITA VELASQUEZ DOI Ot 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 04/29/2017 AMRITA VELASQUEZ DOI Ot E78.5 HYPERLIPIDEMIA, UNSPECIFIED 04/29/2017 AMRITA VELASQUEZ DOI Ot E83.42 HYPOMAGNESEMIA 04/29/2017 AMRITA VELASQUEZ DOI Ot E87.6 HYPOKALEMIA 04/29/2017 AMRITA VELASQUEZ DOI Ot F32.9 MAJOR DEPRESSIVE DISORDER, SINGLE EPISOD 04/29/2017 RON PATTON MARIA GUADALUPE Ot F41.9 ANXIETY DISORDER, UNSPECIFIED 04/29/2017 AMRITA VELASQUEZ DOI Ot I08.1 RHEUMATIC DISORDERS OF BOTH [place] AND T 04/29/2017 AMRITA VELASQUEZ DOI Ot I11.0 HYPERTENSIVE HEART DISEASE WITH HEART FA 04/29/2017 AMRITA VELASQUEZ DOI Ot I25.10 ATHSCL HEART DISEASE OF [place] CORONARY 04/29/2017 AMRITA VELASQUEZ DOI Ot I44.7 LEFT BUNDLE-BRANCH BLOCK, UNSPECIFIED 04/29/2017 AMRITA VELASQUEZ DOI Ot I48.0 PAROXYSMAL ATRIAL FIBRILLATION 04/29/2017 AMRITA VELASQUEZ DOI Ot I50.32 CHRONIC DIASTOLIC (CONGESTIVE) HEART [place] 04/29/2017 AMRITA VELASQUEZ DOI Ot J44.9 CHRONIC OBSTRUCTIVE PULMONARY DISEASE, U 04/29/2017 AMRITA VELASQUEZ DOI Ot M19.91 PRIMARY OSTEOARTHRITIS, UNSPECIFIED SITE 04/29/2017 MARIA GUADALUPE VELASQUEZ DO Ot M54.9 DORSALGIA, UNSPECIFIED 04/29/2017 MARIA GUADALUPE VELASQUEZ DO Ot R00.1 BRADYCARDIA, UNSPECIFIED 04/29/2017 RON PATTON MARIA GUADALUPE Ot Z85.118 PERSONAL HISTORY OF MALIGNANT NEOPLASM O 04/29/2017 AMRITA VELASQUEZ DOI Ot Z86.73 PRSNL HX OF TIA (TIA), AND CEREB INFRC W 04/29/2017 AMRITA VELASQUEZ DOI Ot Z87.891 PERSONAL HISTORY OF NICOTINE DEPENDENCE 04/29/2017 MARIA GUADALUPE VELASQUEZ DO Ot Z90.2 ACQUIRED ABSENCE OF LUNG [PART OF] 04/29/2017 AMRITA VELASQUEZ DOI Ot 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 04/29/2017 RON PATTON MARIA GUADALUPE Ot E78.5 HYPERLIPIDEMIA, UNSPECIFIED 04/29/2017 RON PATTON MARIA GUADALUPE Ot E83.42 HYPOMAGNESEMIA 04/29/2017 RON PATTON MARIA GUADALUPE Ot E87.6 HYPOKALEMIA 04/29/2017 RON PATTON MARIA GUADALUPE Ot F32.9 MAJOR DEPRESSIVE DISORDER, SINGLE EPISOD 04/29/2017 RON PATTON MARIA GUADALUPE Ot F41.9 ANXIETY DISORDER, UNSPECIFIED 04/29/2017 RON PATTON MARIA GUADALUPE Ot I08.1 RHEUMATIC DISORDERS OF BOTH [place] AND T 04/29/2017 RON PATTON MARIA GUADALUPE Ot I11.0 HYPERTENSIVE HEART DISEASE WITH HEART FA 04/29/2017 RON PATTON MARIA GUADALUPE Ot I25.10 ATHSCL HEART DISEASE OF [place] CORONARY 04/29/2017 RON PATTON MARIA GUADALUPE Ot I44.7 LEFT BUNDLE-BRANCH BLOCK, UNSPECIFIED 04/29/2017 RON PATTON MARIA GUADALUPE Ot I48.0 PAROXYSMAL ATRIAL FIBRILLATION 04/29/2017 RON PATTON MARIA GUADALUPE Ot I50.32 CHRONIC DIASTOLIC (CONGESTIVE) HEART DOMINGUEZ 04/29/2017 RON PATTON MARIA GUADALUPE Ot J44.9 CHRONIC OBSTRUCTIVE PULMONARY DISEASE, U 04/29/2017 RON PATTON MARIA GUADALUPE Ot M19.91 PRIMARY OSTEOARTHRITIS, UNSPECIFIED SITE 04/29/2017 RON PATTON MARIA GUADALUPE Ot M54.9 DORSALGIA, UNSPECIFIED 04/29/2017 RON PATTON MARIA GUADALUPE Ot R00.1 BRADYCARDIA, UNSPECIFIED 04/29/2017 RON PATTON MARIA GUADALUPE Ot Z85.118 PERSONAL HISTORY OF MALIGNANT NEOPLASM O 04/29/2017 RON PATTON MARIA GUADALUPE Ot Z86.73 PRSNL HX OF TIA (TIA), AND CEREB INFRC W 04/29/2017 RON PATTON MARIA GUADALUPE Ot Z87.891 PERSONAL HISTORY OF NICOTINE DEPENDENCE 04/29/2017 RON PATTON MARIA GUADALUPE Ot Z90.2 ACQUIRED ABSENCE OF LUNG [PART OF] 04/29/2017 RON PATTON MARIA GUADALUPE Ot 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 04/29/2017 RON PATTON MARIA GUADALUPE Ot E78.5 HYPERLIPIDEMIA, UNSPECIFIED 04/29/2017 RON PATTON MARIA GUADALUPE Ot E83.42 HYPOMAGNESEMIA 04/29/2017 RON PATTON MARIA GUADALUPE Ot E87.6 HYPOKALEMIA 04/29/2017 RON PATTON MARIA GUADALUPE Ot F32.9 MAJOR DEPRESSIVE DISORDER, SINGLE EPISOD 04/29/2017 RON PATTON MARIA GUADALUPE Ot F41.9 ANXIETY DISORDER, UNSPECIFIED 04/29/2017 RON PATTON MARIA GUADALUPE Ot I08.1 RHEUMATIC DISORDERS OF BOTH [place] AND T 04/29/2017 RON PATTON MARIA GUADALUPE Ot I11.0 HYPERTENSIVE HEART DISEASE WITH HEART FA 04/29/2017 RON PATTON MARIA GUADALUPE Ot I25.10 ATHSCL HEART DISEASE OF [place] CORONARY 04/29/2017 RON PATTON MARIA GUADALUPE Ot I44.7 LEFT BUNDLE-BRANCH BLOCK, UNSPECIFIED 04/29/2017 RON PATTON MARIA GUADALUPE Ot I48.0 PAROXYSMAL ATRIAL FIBRILLATION 04/29/2017 RON PATTON MARIA GUADALUPE Ot I50.32 CHRONIC DIASTOLIC (CONGESTIVE) HEART DOMINGEUZ 04/29/2017 AMRITA VELASQUEZ DOI Ot J44.9 CHRONIC OBSTRUCTIVE PULMONARY DISEASE, U 04/29/2017 AMRITA VELASQUEZ DOI Ot M19.91 PRIMARY OSTEOARTHRITIS, UNSPECIFIED SITE 04/29/2017 RON PATTON MARIA GUADALUPE Ot M54.9 DORSALGIA, UNSPECIFIED 04/29/2017 RON PATTON MARIA GUADALUPE Ot R00.1 BRADYCARDIA, UNSPECIFIED 04/29/2017 RON PATTON MARIA GUADALUPE Ot Z85.118 PERSONAL HISTORY OF MALIGNANT NEOPLASM O 04/29/2017 RON PATTON MARIA GUADALUPE Ot Z86.73 PRSNL HX OF TIA (TIA), AND CEREB INFRC W 04/29/2017 AMRITA VELASQUEZ DOI Ot Z87.891 PERSONAL HISTORY OF NICOTINE DEPENDENCE 04/29/2017 RON PATTON MARIA GUADALUPE Ot Z90.2 ACQUIRED ABSENCE OF LUNG [PART OF] Procedures Code Description Performed By Performed On 37.23 RT/LEFT HEART CARD CATH 08/10/2013 88.54 RT LT HEART ANGIOCARD 08/10/2013 88.56 CORONAR ARTERIOGR-2 CATH 08/10/2013 99.62 HEART COUNTERSHOCK NEC 09/06/2013 Results Test Result Range Complete blood count (CBC) with automated white blood cell (WBC) differential - 07/08/16 19:40 Blood leukocytes automated count (number/volume) 7.4 10*3/ uL 4.3-11.0 Blood erythrocytes automated count (number/volume) 3.86 10*6 /uL 4.35-5.85 Venous blood hemoglobin measurement (mass/volume) 11.7 g/dL 11.5-16.0 Blood hematocrit (volume fraction) 35 % 35-52 Automated erythrocyte mean corpuscular volume 92 [foz_us] 80-99 Automated erythrocyte mean corpuscular hemoglobin (mass per erythrocyte) 30 pg 25-34 Automated erythrocyte mean corpuscular hemoglobin concentration measurement ( mass/volume) 33 g/dL 32-36 Automated erythrocyte distribution width ratio 13.5 % 10.0-14.5 Automated blood platelet count (count/volume) 343 10*3/uL 130-400 Automated blood platelet mean volume measurement 9.7 [foz_us ] 7.4-10.4 Automated blood neutrophils/100 leukocytes 72 % 42-75 Automated blood lymphocytes/100 leukocytes 17 % 12-44 Blood monocytes/100 leukocytes 7 % 0-12 Automated blood eosinophils/100 leukocytes 4 % 0-10 Automated blood basophils/100 leukocytes 0 % 0-10 Blood neutrophils automated count (number/volume) 5.3 10*3 1.8-7.8 Blood lymphocytes automated count (number/volume) 1.2 10*3 1.0-4.0 Blood monocytes automated count (number/volume) 0.5 10*3 0.0-1.0 Automated eosinophil count 0.3 10*3/uL 0.0-0.3 Automated blood basophil count (count/volume) 0.0 10*3/uL 0.0-0.1 Comprehensive metabolic panel - 07/08/16 19:40 Serum or plasma sodium measurement (moles/volume) 140 mmol/ L 135-145 Serum or plasma potassium measurement (moles/volume) 4.3 mmol/L 3.6-5.0 Serum or plasma chloride measurement (moles/volume) 109 mmol /L 98-107 Carbon dioxide 21 mmol/L 21-32 Serum or plasma anion gap determination (moles/volume) 10 mmol/L 5-14 Serum or plasma urea nitrogen measurement (mass/volume) 14 mg/dL 7-18 Serum or plasma creatinine measurement (mass/volume) 0.89 mg /dL 0.60-1.30 Serum or plasma urea nitrogen/creatinine mass ratio 16 NRG Serum or plasma creatinine measurement with calculation of estimated glomerular filtration rate > NRG Serum or plasma glucose measurement (mass/volume) 103 mg/dL 70-105 Serum or plasma calcium measurement (mass/volume) 9.2 mg/dL 8.5-10.1 Serum or plasma total bilirubin measurement (mass/volume) 0.3 mg/dL 0.1-1.0 Serum or plasma alkaline phosphatase measurement (enzymatic activity/volume) 126 U/L 40-136 Serum or plasma aspartate aminotransferase measurement (enzymatic activity/ volume) 96 U/L 5-34 Serum or plasma alanine aminotransferase measurement (enzymatic activity/volume ) 58 U/L 0-55 Serum or plasma protein measurement (mass/volume) 7.1 g/dL 6.4-8.2 Serum or plasma albumin measurement (mass/volume) 3.9 g/dL 3.2-4.5 Magnesium - 07/08/16 19:40 Magnesium 2.1 mg/dL 1.8-2.4 Serum or plasma troponin i.cardiac measurement (mass/volume) - 07/08/16 19:40 Serum or plasma troponin i.cardiac measurement (mass/volume) < ng/mL <0.30 Fibrin D-dimer FEU measurement in platelet poor plasma (mass/volume) - 20:33 Fibrin D-dimer FEU measurement in platelet poor plasma (mass/volume) 0.61 ug/mL 0.00-0.49 Serum or plasma lithium measurement (moles/volume) - 07/08/16 20:33 BNP level 678.5 pg/mL <100.0 Complete urinalysis with reflex to culture - 07/08/16 21:10 Urine color determination YELLOW NRG Urine clarity determination CLEAR NRG Urine pH measurement by test strip 7 5- 9 Specific gravity of urine by test strip 1.005 1.016-1.022 Urine protein assay by test strip, semi-quantitative 2+ NEGATIVE Urine glucose detection by automated test strip NEGATIVE NEGATIVE Erythrocytes detection in urine sediment by light microscopy NEGATIVE NEGATIVE Urine ketones detection by automated test strip NEGATIVE NEGATIVE Urine nitrite detection by test strip NEGATIVE NEGATIVE Urine total bilirubin detection by test strip NEGATIVE NEGATIVE Urine urobilinogen measurement by automated test strip (mass/volume) NORMAL NORMAL Urine leukocyte esterase detection by dipstick NEGATIVE NEGATIVE Automated urine sediment erythrocyte count by microscopy (number/high power field) NONE NRG Automated urine sediment leukocyte count by microscopy (number/high power field ) RARE NRG Bacteria detection in urine sediment by light microscopy NONE NRG Squamous epithelial cells detection in urine sediment by light microscopy 0-2 NRG Crystals detection in urine sediment by light microscopy NONE NRG Casts detection in urine sediment by light microscopy NONE NRG Mucus detection in urine sediment by light microscopy NEGATIVE NRG Complete urinalysis with reflex to culture NO NRG Complete blood count (CBC) with automated white blood cell (WBC) differential - 07/10/16 05:34 Blood leukocytes automated count (number/volume) 5.7 10*3/ uL 4.3-11.0 Blood erythrocytes automated count (number/volume) 3.67 10*6 /uL 4.35-5.85 Venous blood hemoglobin measurement (mass/volume) 11.0 g/dL 11.5-16.0 Blood hematocrit (volume fraction) 33 % 35-52 Automated erythrocyte mean corpuscular volume 90 [foz_us] 80-99 Automated erythrocyte mean corpuscular hemoglobin (mass per erythrocyte) 30 pg 25-34 Automated erythrocyte mean corpuscular hemoglobin concentration measurement ( mass/volume) 33 g/dL 32-36 Automated erythrocyte distribution width ratio 13.4 % 10.0-14.5 Automated blood platelet count (count/volume) 296 10*3/uL 130-400 Automated blood platelet mean volume measurement 10.1 [foz_ us] 7.4-10.4 Automated blood neutrophils/100 leukocytes 59 % 42-75 Automated blood lymphocytes/100 leukocytes 26 % 12-44 Blood monocytes/100 leukocytes 10 % 0-12 Automated blood eosinophils/100 leukocytes 5 % 0-10 Automated blood basophils/100 leukocytes 0 % 0-10 Blood neutrophils automated count (number/volume) 3.4 10*3 1.8-7.8 Blood lymphocytes automated count (number/volume) 1.5 10*3 1.0-4.0 Blood monocytes automated count (number/volume) 0.6 10*3 0.0-1.0 Automated eosinophil count 0.3 10*3/uL 0.0-0.3 Automated blood basophil count (count/volume) 0.0 10*3/uL 0.0-0.1 Comprehensive metabolic panel - 07/10/16 05:34 Serum or plasma sodium measurement (moles/volume) 136 mmol/ L 135-145 Serum or plasma potassium measurement (moles/volume) 3.8 mmol/L 3.6-5.0 Serum or plasma chloride measurement (moles/volume) 101 mmol /L 98-107 Carbon dioxide 24 mmol/L 21-32 Serum or plasma anion gap determination (moles/volume) 11 mmol/L 5-14 Serum or plasma urea nitrogen measurement (mass/volume) 21 mg/dL 7-18 Serum or plasma creatinine measurement (mass/volume) 0.91 mg /dL 0.60-1.30 Serum or plasma urea nitrogen/creatinine mass ratio 23 NRG Serum or plasma creatinine measurement with calculation of estimated glomerular filtration rate 60 NRG Serum or plasma glucose measurement (mass/volume) 92 mg/dL 70-105 Serum or plasma calcium measurement (mass/volume) 9.0 mg/dL 8.5-10.1 Serum or plasma total bilirubin measurement (mass/volume) 0.5 mg/dL 0.1-1.0 Serum or plasma alkaline phosphatase measurement (enzymatic activity/volume) 96 U/L 40-136 Serum or plasma aspartate aminotransferase measurement (enzymatic activity/ volume) 25 U/L 5-34 Serum or plasma alanine aminotransferase measurement (enzymatic activity/volume ) 28 U/L 0-55 Serum or plasma protein measurement (mass/volume) 6.2 g/dL 6.4-8.2 Serum or plasma albumin measurement (mass/volume) 3.5 g/dL 3.2-4.5 Serum or plasma lithium measurement (moles/volume) - 07/10/16 05:34 BNP level 139.9 pg/mL <100.0 Complete blood count (CBC) with automated white blood cell (WBC) differential - 07/13/16 10:36 Blood leukocytes automated count (number/volume) 6.0 10*3/ uL 4.3-11.0 Blood erythrocytes automated count (number/volume) 4.29 10*6 /uL 4.35-5.85 Venous blood hemoglobin measurement (mass/volume) 12.7 g/dL 11.5-16.0 Blood hematocrit (volume fraction) 39 % 35-52 Automated erythrocyte mean corpuscular volume 91 [foz_us] 80-99 Automated erythrocyte mean corpuscular hemoglobin (mass per erythrocyte) 30 pg 25-34 Automated erythrocyte mean corpuscular hemoglobin concentration measurement ( mass/volume) 33 g/dL 32-36 Automated erythrocyte distribution width ratio 13.4 % 10.0-14.5 Automated blood platelet count (count/volume) 396 10*3/uL 130-400 Automated blood platelet mean volume measurement 9.9 [foz_us ] 7.4-10.4 Automated blood neutrophils/100 leukocytes 59 % 42-75 Automated blood lymphocytes/100 leukocytes 23 % 12-44 Blood monocytes/100 leukocytes 12 % 0-12 Automated blood eosinophils/100 leukocytes 6 % 0-10 Automated blood basophils/100 leukocytes 0 % 0-10 Blood neutrophils automated count (number/volume) 3.5 10*3 1.8-7.8 Blood lymphocytes automated count (number/volume) 1.4 10*3 1.0-4.0 Blood monocytes automated count (number/volume) 0.7 10*3 0.0-1.0 Automated eosinophil count 0.3 10*3/uL 0.0-0.3 Automated blood basophil count (count/volume) 0.0 10*3/uL 0.0-0.1 Comprehensive metabolic panel - 07/13/16 10:36 Serum or plasma sodium measurement (moles/volume) 135 mmol/ L 135-145 Serum or plasma potassium measurement (moles/volume) 4.3 mmol/L 3.6-5.0 Serum or plasma chloride measurement (moles/volume) 102 mmol /L 98-107 Carbon dioxide 24 mmol/L 21-32 Serum or plasma anion gap determination (moles/volume) 9 mmol/L 5-14 Serum or plasma urea nitrogen measurement (mass/volume) 26 mg/dL 7-18 Serum or plasma creatinine measurement (mass/volume) 1.07 mg /dL 0.60-1.30 Serum or plasma urea nitrogen/creatinine mass ratio 24 NRG Serum or plasma creatinine measurement with calculation of estimated glomerular filtration rate 50 NRG Serum or plasma glucose measurement (mass/volume) 100 mg/dL 70-105 Serum or plasma calcium measurement (mass/volume) 10.0 mg/ dL 8.5-10.1 Serum or plasma total bilirubin measurement (mass/volume) 0.3 mg/dL 0.1-1.0 Serum or plasma alkaline phosphatase measurement (enzymatic activity/volume) 128 U/L 40-136 Serum or plasma aspartate aminotransferase measurement (enzymatic activity/ volume) 28 U/L 5-34 Serum or plasma alanine aminotransferase measurement (enzymatic activity/volume ) 27 U/L 0-55 Serum or plasma protein measurement (mass/volume) 8.0 g/dL 6.4-8.2 Serum or plasma albumin measurement (mass/volume) 4.3 g/dL 3.2-4.5 Magnesium - 07/13/16 10:36 Magnesium 2.4 mg/dL 1.8-2.4 Serum or plasma troponin i.cardiac measurement (mass/volume) - 07/13/16 10:36 Serum or plasma troponin i.cardiac measurement (mass/volume) < ng/mL <0.30 Myoglobin, serum - 07/13/16 10:36 Myoglobin, serum 51.9 ng/mL 10.0-92.0 Serum or plasma lithium measurement (moles/volume) - 07/13/16 10:36 BNP level 392.3 pg/mL <100.0 Comprehensive metabolic panel - 08/14/16 14:23 Serum or plasma sodium measurement (moles/volume) 138 mmol/ L 135-145 Serum or plasma potassium measurement (moles/volume) 4.5 mmol/L 3.6-5.0 Serum or plasma chloride measurement (moles/volume) 106 mmol /L 98-107 Carbon dioxide 22 mmol/L 21-32 Serum or plasma anion gap determination (moles/volume) 10 mmol/L 5-14 Serum or plasma urea nitrogen measurement (mass/volume) 34 mg/dL 7-18 Serum or plasma creatinine measurement (mass/volume) 1.19 mg /dL 0.60-1.30 Serum or plasma urea nitrogen/creatinine mass ratio 29 NRG Serum or plasma creatinine measurement with calculation of estimated glomerular filtration rate 44 NRG Serum or plasma glucose measurement (mass/volume) 100 mg/dL 70-105 Serum or plasma calcium measurement (mass/volume) 10.0 mg/ dL 8.5-10.1 Serum or plasma total bilirubin measurement (mass/volume) 0.5 mg/dL 0.1-1.0 Serum or plasma alkaline phosphatase measurement (enzymatic activity/volume) 118 U/L 40-136 Serum or plasma aspartate aminotransferase measurement (enzymatic activity/ volume) 22 U/L 5-34 Serum or plasma alanine aminotransferase measurement (enzymatic activity/volume ) 15 U/L 0-55 Serum or plasma protein measurement (mass/volume) 7.2 g/dL 6.4-8.2 Serum or plasma albumin measurement (mass/volume) 4.2 g/dL 3.2-4.5 Serum or plasma lithium measurement (moles/volume) - 08/14/16 14:23 BNP level 204.8 pg/mL <100.0 Complete blood count (CBC) with automated white blood cell (WBC) differential - 10/14/16 21:08 Blood leukocytes automated count (number/volume) 6.2 10*3/ uL 4.3-11.0 Blood erythrocytes automated count (number/volume) 3.52 10*6 /uL 4.35-5.85 Venous blood hemoglobin measurement (mass/volume) 10.4 g/dL 11.5-16.0 Blood hematocrit (volume fraction) 33 % 35-52 Automated erythrocyte mean corpuscular volume 93 [foz_us] 80-99 Automated erythrocyte mean corpuscular hemoglobin (mass per erythrocyte) 30 pg 25-34 Automated erythrocyte mean corpuscular hemoglobin concentration measurement ( mass/volume) 32 g/dL 32-36 Automated erythrocyte distribution width ratio 13.8 % 10.0-14.5 Automated blood platelet count (count/volume) 352 10*3/uL 130-400 Automated blood platelet mean volume measurement 9.8 [foz_us ] 7.4-10.4 Automated blood neutrophils/100 leukocytes 66 % 42-75 Automated blood lymphocytes/100 leukocytes 22 % 12-44 Blood monocytes/100 leukocytes 6 % 0-12 Automated blood eosinophils/100 leukocytes 6 % 0-10 Automated blood basophils/100 leukocytes 1 % 0-10 Blood neutrophils automated count (number/volume) 4.1 10*3 1.8-7.8 Blood lymphocytes automated count (number/volume) 1.3 10*3 1.0-4.0 Blood monocytes automated count (number/volume) 0.4 10*3 0.0-1.0 Automated eosinophil count 0.4 10*3/uL 0.0-0.3 Automated blood basophil count (count/volume) 0.0 10*3/uL 0.0-0.1 Whole blood basic metabolic panel - 10/14/16 21:08 Serum or plasma sodium measurement (moles/volume) 138 mmol/ L 135-145 Serum or plasma potassium measurement (moles/volume) 4.4 mmol/L 3.6-5.0 Serum or plasma chloride measurement (moles/volume) 104 mmol /L 98-107 Carbon dioxide 24 mmol/L 21-32 Serum or plasma anion gap determination (moles/volume) 10 mmol/L 5-14 Serum or plasma urea nitrogen measurement (mass/volume) 26 mg/dL 7-18 Serum or plasma creatinine measurement (mass/volume) 1.11 mg /dL 0.60-1.30 Serum or plasma urea nitrogen/creatinine mass ratio 23 NRG Serum or plasma creatinine measurement with calculation of estimated glomerular filtration rate 48 NRG Serum or plasma glucose measurement (mass/volume) 95 mg/dL 70-105 Serum or plasma calcium measurement (mass/volume) 9.7 mg/dL 8.5-10.1 Capillary blood glucose measurement by glucometer (mass/volume) - 03/06/17 21: 59 Capillary blood glucose measurement by glucometer (mass/volume) 128 mg/dL 70-110 Complete blood count (CBC) with automated white blood cell (WBC) differential - 03/06/17 22:00 Blood leukocytes automated count (number/volume) 7.7 10*3/ uL 4.3-11.0 Blood erythrocytes automated count (number/volume) 4.06 10*6 /uL 4.35-5.85 Venous blood hemoglobin measurement (mass/volume) 12.0 g/dL 11.5-16.0 Blood hematocrit (volume fraction) 38 % 35-52 Automated erythrocyte mean corpuscular volume 93 [foz_us] 80-99 Automated erythrocyte mean corpuscular hemoglobin (mass per erythrocyte) 30 pg 25-34 Automated erythrocyte mean corpuscular hemoglobin concentration measurement ( mass/volume) 32 g/dL 32-36 Automated erythrocyte distribution width ratio 13.9 % 10.0-14.5 Automated blood platelet count (count/volume) 348 10*3/uL 130-400 Automated blood platelet mean volume measurement 9.7 [foz_us ] 7.4-10.4 Automated blood neutrophils/100 leukocytes 70 % 42-75 Automated blood lymphocytes/100 leukocytes 18 % 12-44 Blood monocytes/100 leukocytes 10 % 0-12 Automated blood eosinophils/100 leukocytes 2 % 0-10 Automated blood basophils/100 leukocytes 0 % 0-10 Blood neutrophils automated count (number/volume) 5.4 10*3 1.8-7.8 Blood lymphocytes automated count (number/volume) 1.4 10*3 1.0-4.0 Blood monocytes automated count (number/volume) 0.7 10*3 0.0-1.0 Automated eosinophil count 0.2 10*3/uL 0.0-0.3 Automated blood basophil count (count/volume) 0.0 10*3/uL 0.0-0.1 Comprehensive metabolic panel - 03/06/17 22:00 Serum or plasma sodium measurement (moles/volume) 138 mmol/ L 135-145 Serum or plasma potassium measurement (moles/volume) 5.7 mmol/L 3.6-5.0 Serum or plasma chloride measurement (moles/volume) 105 mmol /L 98-107 Carbon dioxide 18 mmol/L 21-32 Serum or plasma anion gap determination (moles/volume) 15 mmol/L 5-14 Serum or plasma urea nitrogen measurement (mass/volume) 26 mg/dL 7-18 Serum or plasma creatinine measurement (mass/volume) 1.46 mg /dL 0.60-1.30 Serum or plasma urea nitrogen/creatinine mass ratio 18 NRG Serum or plasma creatinine measurement with calculation of estimated glomerular filtration rate 35 NRG Serum or plasma glucose measurement (mass/volume) 116 mg/dL 70-105 Serum or plasma calcium measurement (mass/volume) 9.3 mg/dL 8.5-10.1 Serum or plasma total bilirubin measurement (mass/volume) 0.3 mg/dL 0.1-1.0 Serum or plasma alkaline phosphatase measurement (enzymatic activity/volume) 104 U/L 40-136 Serum or plasma aspartate aminotransferase measurement (enzymatic activity/ volume) 28 U/L 5-34 Serum or plasma alanine aminotransferase measurement (enzymatic activity/volume ) 16 U/L 0-55 Serum or plasma protein measurement (mass/volume) 7.9 g/dL 6.4-8.2 Serum or plasma albumin measurement (mass/volume) 4.1 g/dL 3.2-4.5 Magnesium - 03/06/17 22:00 Magnesium 2.3 mg/dL 1.8-2.4 Serum or plasma troponin i.cardiac measurement (mass/volume) - 03/06/17 22:00 Serum or plasma troponin i.cardiac measurement (mass/volume) < ng/mL <0.30 Serum or plasma lithium measurement (moles/volume) - 03/06/17 22:00 BNP level 412.8 pg/mL <100.0 PT panel in platelet poor plasma by coagulation assay - 03/06/17 22:16 Prothrombin time (PT) in platelet poor plasma by coagulation assay 13.3 s 12.2-14.7 INR in platelet poor plasma or blood by coagulation assay 1.0 0.8-1.4 Activated partial thromboplastin time (aPTT) in platelet poor plasma bycoagulation assay - 03/06/17 22:16 Activated partial thromboplastin time (aPTT) in platelet poor plasma bycoagulation assay 30 s 24-35 Fibrin D-dimer FEU measurement in platelet poor plasma (mass/volume) - 22:16 Fibrin D-dimer FEU measurement in platelet poor plasma (mass/volume) 0.33 ug/mL 0.00-0.49 Complete urinalysis with reflex to culture - 03/06/17 22:25 Urine color determination YELLOW NRG Urine clarity determination CLEAR NRG Urine pH measurement by test strip 6 5- 9 Specific gravity of urine by test strip 1.015 1.016-1.022 Urine protein assay by test strip, semi-quantitative 3+ NEGATIVE Urine glucose detection by automated test strip NEGATIVE NEGATIVE Erythrocytes detection in urine sediment by light microscopy NEGATIVE NEGATIVE Urine ketones detection by automated test strip NEGATIVE NEGATIVE Urine nitrite detection by test strip NEGATIVE NEGATIVE Urine total bilirubin detection by test strip NEGATIVE NEGATIVE Urine urobilinogen measurement by automated test strip (mass/volume) NORMAL NORMAL Urine leukocyte esterase detection by dipstick 3+ NEGATIVE Automated urine sediment erythrocyte count by microscopy (number/high power field) NONE NRG Automated urine sediment leukocyte count by microscopy (number/high power field ) [HPF] NRG Bacteria detection in urine sediment by light microscopy FEW NRG Squamous epithelial cells detection in urine sediment by light microscopy 10-25 NRG Crystals detection in urine sediment by light microscopy PRESENT NRG Casts detection in urine sediment by light microscopy PRESENT NRG Mucus detection in urine sediment by light microscopy NEGATIVE NRG Complete urinalysis with reflex to culture YES NRG Hyaline casts detection in urine sediment by light microscopy 5-10 NRG Calcium oxalate crystals detection in urine sediment by light microscopy FEW NRG Bacterial urine culture - 03/06/17 22:25 URINE CULTURE RESULTS <10,000/ML NRG Complete blood count (CBC) with automated white blood cell (WBC) differential - 03/07/17 04:55 Blood leukocytes automated count (number/volume) 7.6 10*3/ uL 4.3-11.0 Blood erythrocytes automated count (number/volume) 3.54 10*6 /uL 4.35-5.85 Venous blood hemoglobin measurement (mass/volume) 10.3 g/dL 11.5-16.0 Blood hematocrit (volume fraction) 33 % 35-52 Automated erythrocyte mean corpuscular volume 92 [foz_us] 80-99 Automated erythrocyte mean corpuscular hemoglobin (mass per erythrocyte) 29 pg 25-34 Automated erythrocyte mean corpuscular hemoglobin concentration measurement ( mass/volume) 32 g/dL 32-36 Automated erythrocyte distribution width ratio 13.7 % 10.0-14.5 Automated blood platelet count (count/volume) 273 10*3/uL 130-400 Automated blood platelet mean volume measurement 9.6 [foz_us ] 7.4-10.4 Automated blood neutrophils/100 leukocytes 84 % 42-75 Automated blood lymphocytes/100 leukocytes 11 % 12-44 Blood monocytes/100 leukocytes 4 % 0-12 Automated blood eosinophils/100 leukocytes 1 % 0-10 Automated blood basophils/100 leukocytes 0 % 0-10 Blood neutrophils automated count (number/volume) 6.4 10*3 1.8-7.8 Blood lymphocytes automated count (number/volume) 0.8 10*3 1.0-4.0 Blood monocytes automated count (number/volume) 0.3 10*3 0.0-1.0 Automated eosinophil count 0.1 10*3/uL 0.0-0.3 Automated blood basophil count (count/volume) 0.0 10*3/uL 0.0-0.1 Whole blood basic metabolic panel - 03/07/17 04:55 Serum or plasma sodium measurement (moles/volume) 138 mmol/ L 135-145 Serum or plasma potassium measurement (moles/volume) 4.4 mmol/L 3.6-5.0 Serum or plasma chloride measurement (moles/volume) 107 mmol /L 98-107 Carbon dioxide 21 mmol/L 21-32 Serum or plasma anion gap determination (moles/volume) 10 mmol/L 5-14 Serum or plasma urea nitrogen measurement (mass/volume) 21 mg/dL 7-18 Serum or plasma creatinine measurement (mass/volume) 1.00 mg /dL 0.60-1.30 Serum or plasma urea nitrogen/creatinine mass ratio 21 NRG Serum or plasma creatinine measurement with calculation of estimated glomerular filtration rate 54 NRG Serum or plasma glucose measurement (mass/volume) 117 mg/dL 70-105 Serum or plasma calcium measurement (mass/volume) 8.3 mg/dL 8.5-10.1 Magnesium - 03/07/17 04:55 Magnesium 1.7 mg/dL 1.8-2.4 Serum or plasma lithium measurement (moles/volume) - 03/07/17 04:55 BNP level 509.5 pg/mL <100.0 Complete blood count (CBC) with automated white blood cell (WBC) differential - 03/08/17 04:40 Blood leukocytes automated count (number/volume) 7.3 10*3/ uL 4.3-11.0 Blood erythrocytes automated count (number/volume) 3.71 10*6 /uL 4.35-5.85 Venous blood hemoglobin measurement (mass/volume) 10.8 g/dL 11.5-16.0 Blood hematocrit (volume fraction) 34 % 35-52 Automated erythrocyte mean corpuscular volume 92 [foz_us] 80-99 Automated erythrocyte mean corpuscular hemoglobin (mass per erythrocyte) 29 pg 25-34 Automated erythrocyte mean corpuscular hemoglobin concentration measurement ( mass/volume) 32 g/dL 32-36 Automated erythrocyte distribution width ratio 13.6 % 10.0-14.5 Automated blood platelet count (count/volume) 282 10*3/uL 130-400 Automated blood platelet mean volume measurement 9.4 [foz_us ] 7.4-10.4 Automated blood neutrophils/100 leukocytes 69 % 42-75 Automated blood lymphocytes/100 leukocytes 19 % 12-44 Blood monocytes/100 leukocytes 9 % 0-12 Automated blood eosinophils/100 leukocytes 3 % 0-10 Automated blood basophils/100 leukocytes 0 % 0-10 Blood neutrophils automated count (number/volume) 5.1 10*3 1.8-7.8 Blood lymphocytes automated count (number/volume) 1.4 10*3 1.0-4.0 Blood monocytes automated count (number/volume) 0.7 10*3 0.0-1.0 Automated eosinophil count 0.2 10*3/uL 0.0-0.3 Automated blood basophil count (count/volume) 0.0 10*3/uL 0.0-0.1 Comprehensive metabolic panel - 03/08/17 04:40 Serum or plasma sodium measurement (moles/volume) 139 mmol/ L 135-145 Serum or plasma potassium measurement (moles/volume) 3.6 mmol/L 3.6-5.0 Serum or plasma chloride measurement (moles/volume) 107 mmol /L 98-107 Carbon dioxide 23 mmol/L 21-32 Serum or plasma anion gap determination (moles/volume) 9 mmol/L 5-14 Serum or plasma urea nitrogen measurement (mass/volume) 14 mg/dL 7-18 Serum or plasma creatinine measurement (mass/volume) 0.87 mg /dL 0.60-1.30 Serum or plasma urea nitrogen/creatinine mass ratio 16 NRG Serum or plasma creatinine measurement with calculation of estimated glomerular filtration rate > NRG Serum or plasma glucose measurement (mass/volume) 94 mg/dL 70-105 Serum or plasma calcium measurement (mass/volume) 8.8 mg/dL 8.5-10.1 Serum or plasma total bilirubin measurement (mass/volume) 0.6 mg/dL 0.1-1.0 Serum or plasma alkaline phosphatase measurement (enzymatic activity/volume) 91 U/L 40-136 Serum or plasma aspartate aminotransferase measurement (enzymatic activity/ volume) 16 U/L 5-34 Serum or plasma alanine aminotransferase measurement (enzymatic activity/volume ) 14 U/L 0-55 Serum or plasma protein measurement (mass/volume) 6.3 g/dL 6.4-8.2 Serum or plasma albumin measurement (mass/volume) 3.4 g/dL 3.2-4.5 Lipid 1996 panel - 03/08/17 04:40 Serum or plasma triglyceride measurement (mass/volume) 105 mg/dL <150 Serum or plasma cholesterol measurement (mass/volume) 198 mg /dL < 200 Serum or plasma cholesterol in HDL measurement (mass/volume) 53 mg/dL 40-60 Cholesterol in LDL [mass/volume] in serum or plasma by direct assay 119 mg/dL 1-129 Serum or plasma cholesterol in VLDL measurement (mass/volume) 21 mg/dL 5-40 Complete blood count (CBC) with automated white blood cell (WBC) differential - 03/28/17 00:30 Blood leukocytes automated count (number/volume) 4.5 10*3/ uL 4.3-11.0 Blood erythrocytes automated count (number/volume) 3.95 10*6 /uL 4.35-5.85 Venous blood hemoglobin measurement (mass/volume) 11.8 g/dL 11.5-16.0 Blood hematocrit (volume fraction) 36 % 35-52 Automated erythrocyte mean corpuscular volume 90 [foz_us] 80-99 Automated erythrocyte mean corpuscular hemoglobin (mass per erythrocyte) 30 pg 25-34 Automated erythrocyte mean corpuscular hemoglobin concentration measurement ( mass/volume) 33 g/dL 32-36 Automated erythrocyte distribution width ratio 13.5 % 10.0-14.5 Automated blood platelet count (count/volume) 266 10*3/uL 130-400 Automated blood platelet mean volume measurement 9.6 [foz_us ] 7.4-10.4 Automated blood neutrophils/100 leukocytes 62 % 42-75 Automated blood lymphocytes/100 leukocytes 24 % 12-44 Blood monocytes/100 leukocytes 10 % 0-12 Automated blood eosinophils/100 leukocytes 5 % 0-10 Automated blood basophils/100 leukocytes 0 % 0-10 Blood neutrophils automated count (number/volume) 2.8 10*3 1.8-7.8 Blood lymphocytes automated count (number/volume) 1.1 10*3 1.0-4.0 Blood monocytes automated count (number/volume) 0.4 10*3 0.0-1.0 Automated eosinophil count 0.2 10*3/uL 0.0-0.3 Automated blood basophil count (count/volume) 0.0 10*3/uL 0.0-0.1 Comprehensive metabolic panel - 03/28/17 00:30 Serum or plasma sodium measurement (moles/volume) 140 mmol/ L 135-145 Serum or plasma potassium measurement (moles/volume) 4.0 mmol/L 3.6-5.0 Serum or plasma chloride measurement (moles/volume) 105 mmol /L 98-107 Carbon dioxide 25 mmol/L 21-32 Serum or plasma anion gap determination (moles/volume) 10 mmol/L 5-14 Serum or plasma urea nitrogen measurement (mass/volume) 18 mg/dL 7-18 Serum or plasma creatinine measurement (mass/volume) 0.84 mg /dL 0.60-1.30 Serum or plasma urea nitrogen/creatinine mass ratio 21 NRG Serum or plasma creatinine measurement with calculation of estimated glomerular filtration rate > NRG Serum or plasma glucose measurement (mass/volume) 118 mg/dL 70-105 Serum or plasma calcium measurement (mass/volume) 9.5 mg/dL 8.5-10.1 Serum or plasma total bilirubin measurement (mass/volume) 0.4 mg/dL 0.1-1.0 Serum or plasma alkaline phosphatase measurement (enzymatic activity/volume) 94 U/L 40-136 Serum or plasma aspartate aminotransferase measurement (enzymatic activity/ volume) 22 U/L 5-34 Serum or plasma alanine aminotransferase measurement (enzymatic activity/volume ) 11 U/L 0-55 Serum or plasma protein measurement (mass/volume) 7.3 g/dL 6.4-8.2 Serum or plasma albumin measurement (mass/volume) 4.0 g/dL 3.2-4.5 Magnesium - 03/28/17 00:30 Magnesium 1.8 mg/dL 1.8-2.4 PT panel in platelet poor plasma by coagulation assay - 03/28/17 00:30 Prothrombin time (PT) in platelet poor plasma by coagulation assay 13.6 s 12.2-14.7 INR in platelet poor plasma or blood by coagulation assay 1.1 0.8-1.4 Activated partial thromboplastin time (aPTT) in platelet poor plasma bycoagulation assay - 03/28/17 00:30 Activated partial thromboplastin time (aPTT) in platelet poor plasma bycoagulation assay 32 s 24-35 Serum or plasma lithium measurement (moles/volume) - 03/28/17 00:30 BNP level 534.0 pg/mL <100.0 Serum or plasma troponin i.cardiac measurement (mass/volume) - 03/28/17 00:30 Serum or plasma troponin i.cardiac measurement (mass/volume) < ng/mL <0.30 Serum or plasma thyroxine (T4) free measurement (mass/volume) - 03/28/17 00:30 Serum or plasma thyroxine (T4) free measurement (mass/volume) 1.10 ng/dL 0.70-1.48 Serum or plasma thyrotropin measurement by detection limit <=0.05 miu/l (units/ volume) - 03/28/17 00:30 Serum or plasma thyrotropin measurement by detection limit <=0.05 miu/l (units/ volume) 0.17 u[iU]/mL 0.35-4.94 Complete blood count (CBC) with automated white blood cell (WBC) differential - 04/13/17 15:08 Blood leukocytes automated count (number/volume) 4.6 10*3/ uL 4.3-11.0 Blood erythrocytes automated count (number/volume) 4.29 10*6 /uL 4.35-5.85 Venous blood hemoglobin measurement (mass/volume) 12.6 g/dL 11.5-16.0 Blood hematocrit (volume fraction) 39 % 35-52 Automated erythrocyte mean corpuscular volume 90 [foz_us] 80-99 Automated erythrocyte mean corpuscular hemoglobin (mass per erythrocyte) 29 pg 25-34 Automated erythrocyte mean corpuscular hemoglobin concentration measurement ( mass/volume) 33 g/dL 32-36 Automated erythrocyte distribution width ratio 13.5 % 10.0-14.5 Automated blood platelet count (count/volume) 340 10*3/uL 130-400 Automated blood platelet mean volume measurement 9.6 [foz_us ] 7.4-10.4 Automated blood neutrophils/100 leukocytes 72 % 42-75 Automated blood lymphocytes/100 leukocytes 17 % 12-44 Blood monocytes/100 leukocytes 7 % 0-12 Automated blood eosinophils/100 leukocytes 4 % 0-10 Automated blood basophils/100 leukocytes 0 % 0-10 Blood neutrophils automated count (number/volume) 3.3 10*3 1.8-7.8 Blood lymphocytes automated count (number/volume) 0.8 10*3 1.0-4.0 Blood monocytes automated count (number/volume) 0.3 10*3 0.0-1.0 Automated eosinophil count 0.2 10*3/uL 0.0-0.3 Automated blood basophil count (count/volume) 0.0 10*3/uL 0.0-0.1 Comprehensive metabolic panel - 04/13/17 15:08 Serum or plasma sodium measurement (moles/volume) 141 mmol/ L 135-145 Serum or plasma potassium measurement (moles/volume) 3.9 mmol/L 3.6-5.0 Serum or plasma chloride measurement (moles/volume) 107 mmol /L 98-107 Carbon dioxide 22 mmol/L 21-32 Serum or plasma anion gap determination (moles/volume) 12 mmol/L 5-14 Serum or plasma urea nitrogen measurement (mass/volume) 21 mg/dL 7-18 Serum or plasma creatinine measurement (mass/volume) 0.94 mg /dL 0.60-1.30 Serum or plasma urea nitrogen/creatinine mass ratio 22 NRG Serum or plasma creatinine measurement with calculation of estimated glomerular filtration rate 58 NRG Serum or plasma glucose measurement (mass/volume) 112 mg/dL 70-105 Serum or plasma calcium measurement (mass/volume) 9.9 mg/dL 8.5-10.1 Serum or plasma total bilirubin measurement (mass/volume) 0.7 mg/dL 0.1-1.0 Serum or plasma alkaline phosphatase measurement (enzymatic activity/volume) 93 U/L 40-136 Serum or plasma aspartate aminotransferase measurement (enzymatic activity/ volume) 21 U/L 5-34 Serum or plasma alanine aminotransferase measurement (enzymatic activity/volume ) 14 U/L 0-55 Serum or plasma protein measurement (mass/volume) 7.3 g/dL 6.4-8.2 Serum or plasma albumin measurement (mass/volume) 4.1 g/dL 3.2-4.5 Serum or plasma troponin i.cardiac measurement (mass/volume) - 04/13/17 15:08 Serum or plasma troponin i.cardiac measurement (mass/volume) < ng/mL <0.30 Serum or plasma lithium measurement (moles/volume) - 04/13/17 15:08 BNP level 79.4 pg/mL <100.0 Complete blood count (CBC) with automated white blood cell (WBC) differential - 04/20/17 15:50 Blood leukocytes automated count (number/volume) 7.8 10*3/ uL 4.3-11.0 Blood erythrocytes automated count (number/volume) 4.56 10*6 /uL 4.35-5.85 Venous blood hemoglobin measurement (mass/volume) 13.3 g/dL 11.5-16.0 Blood hematocrit (volume fraction) 41 % 35-52 Automated erythrocyte mean corpuscular volume 90 [foz_us] 80-99 Automated erythrocyte mean corpuscular hemoglobin (mass per erythrocyte) 29 pg 25-34 Automated erythrocyte mean corpuscular hemoglobin concentration measurement ( mass/volume) 32 g/dL 32-36 Automated erythrocyte distribution width ratio 13.9 % 10.0-14.5 Automated blood platelet count (count/volume) 348 10*3/uL 130-400 Automated blood platelet mean volume measurement 9.8 [foz_us ] 7.4-10.4 Automated blood neutrophils/100 leukocytes 79 % 42-75 Automated blood lymphocytes/100 leukocytes 13 % 12-44 Blood monocytes/100 leukocytes 6 % 0-12 Automated blood eosinophils/100 leukocytes 2 % 0-10 Automated blood basophils/100 leukocytes 0 % 0-10 Blood neutrophils automated count (number/volume) 6.2 10*3 1.8-7.8 Blood lymphocytes automated count (number/volume) 1.0 10*3 1.0-4.0 Blood monocytes automated count (number/volume) 0.5 10*3 0.0-1.0 Automated eosinophil count 0.2 10*3/uL 0.0-0.3 Automated blood basophil count (count/volume) 0.0 10*3/uL 0.0-0.1 Comprehensive metabolic panel - 04/20/17 15:50 Serum or plasma sodium measurement (moles/volume) 138 mmol/ L 135-145 Serum or plasma potassium measurement (moles/volume) 4.4 mmol/L 3.6-5.0 Serum or plasma chloride measurement (moles/volume) 105 mmol /L 98-107 Carbon dioxide 17 mmol/L 21-32 Serum or plasma anion gap determination (moles/volume) 16 mmol/L 5-14 Serum or plasma urea nitrogen measurement (mass/volume) 23 mg/dL 7-18 Serum or plasma creatinine measurement (mass/volume) 1.21 mg /dL 0.60-1.30 Serum or plasma urea nitrogen/creatinine mass ratio 19 NRG Serum or plasma creatinine measurement with calculation of estimated glomerular filtration rate 43 NRG Serum or plasma glucose measurement (mass/volume) 112 mg/dL 70-105 Serum or plasma calcium measurement (mass/volume) 9.8 mg/dL 8.5-10.1 Serum or plasma total bilirubin measurement (mass/volume) 0.5 mg/dL 0.1-1.0 Serum or plasma alkaline phosphatase measurement (enzymatic activity/volume) 92 U/L 40-136 Serum or plasma aspartate aminotransferase measurement (enzymatic activity/ volume) 23 U/L 5-34 Serum or plasma alanine aminotransferase measurement (enzymatic activity/volume ) 15 U/L 0-55 Serum or plasma protein measurement (mass/volume) 7.9 g/dL 6.4-8.2 Serum or plasma albumin measurement (mass/volume) 4.1 g/dL 3.2-4.5 Serum or plasma troponin i.cardiac measurement (mass/volume) - 04/20/17 15:50 Serum or plasma troponin i.cardiac measurement (mass/volume) < ng/mL <0.30 Serum or plasma thyroxine (T4) free measurement (mass/volume) - 04/20/17 15:50 Serum or plasma thyroxine (T4) free measurement (mass/volume) 1.33 ng/dL 0.70-1.48 Serum or plasma thyrotropin measurement by detection limit <=0.05 miu/l (units/ volume) - 04/20/17 15:50 Serum or plasma thyrotropin measurement by detection limit <=0.05 miu/l (units/ volume) 0.02 u[iU]/mL 0.35-4.94 Complete blood count (CBC) with automated white blood cell (WBC) differential - 04/21/17 06:10 Blood leukocytes automated count (number/volume) 5.7 10*3/ uL 4.3-11.0 Blood erythrocytes automated count (number/volume) 4.00 10*6 /uL 4.35-5.85 Venous blood hemoglobin measurement (mass/volume) 11.9 g/dL 11.5-16.0 Blood hematocrit (volume fraction) 37 % 35-52 Automated erythrocyte mean corpuscular volume 91 [foz_us] 80-99 Automated erythrocyte mean corpuscular hemoglobin (mass per erythrocyte) 30 pg 25-34 Automated erythrocyte mean corpuscular hemoglobin concentration measurement ( mass/volume) 33 g/dL 32-36 Automated erythrocyte distribution width ratio 13.8 % 10.0-14.5 Automated blood platelet count (count/volume) 280 10*3/uL 130-400 Automated blood platelet mean volume measurement 10.1 [foz_ us] 7.4-10.4 Automated blood neutrophils/100 leukocytes 65 % 42-75 Automated blood lymphocytes/100 leukocytes 22 % 12-44 Blood monocytes/100 leukocytes 8 % 0-12 Automated blood eosinophils/100 leukocytes 5 % 0-10 Automated blood basophils/100 leukocytes 0 % 0-10 Blood neutrophils automated count (number/volume) 3.7 10*3 1.8-7.8 Blood lymphocytes automated count (number/volume) 1.3 10*3 1.0-4.0 Blood monocytes automated count (number/volume) 0.4 10*3 0.0-1.0 Automated eosinophil count 0.3 10*3/uL 0.0-0.3 Automated blood basophil count (count/volume) 0.0 10*3/uL 0.0-0.1 Comprehensive metabolic panel - 04/21/17 06:10 Serum or plasma sodium measurement (moles/volume) 139 mmol/ L 135-145 Serum or plasma potassium measurement (moles/volume) 3.7 mmol/L 3.6-5.0 Serum or plasma chloride measurement (moles/volume) 107 mmol /L 98-107 Carbon dioxide 20 mmol/L 21-32 Serum or plasma anion gap determination (moles/volume) 12 mmol/L 5-14 Serum or plasma urea nitrogen measurement (mass/volume) 24 mg/dL 7-18 Serum or plasma creatinine measurement (mass/volume) 0.93 mg /dL 0.60-1.30 Serum or plasma urea nitrogen/creatinine mass ratio 26 NRG Serum or plasma creatinine measurement with calculation of estimated glomerular filtration rate 59 NRG Serum or plasma glucose measurement (mass/volume) 87 mg/dL 70-105 Serum or plasma calcium measurement (mass/volume) 9.1 mg/dL 8.5-10.1 Serum or plasma total bilirubin measurement (mass/volume) 0.6 mg/dL 0.1-1.0 Serum or plasma alkaline phosphatase measurement (enzymatic activity/volume) 77 U/L 40-136 Serum or plasma aspartate aminotransferase measurement (enzymatic activity/ volume) 18 U/L 5-34 Serum or plasma alanine aminotransferase measurement (enzymatic activity/volume ) 13 U/L 0-55 Serum or plasma protein measurement (mass/volume) 6.5 g/dL 6.4-8.2 Serum or plasma albumin measurement (mass/volume) 3.5 g/dL 3.2-4.5 Blood CBC with ordered manual differential panel - 04/22/17 05:18 Blood leukocytes automated count (number/volume) 5.5 10*3/ uL 4.3-11.0 Blood erythrocytes automated count (number/volume) 4.20 10*6 /uL 4.35-5.85 Venous blood hemoglobin measurement (mass/volume) 12.5 g/dL 11.5-16.0 Blood hematocrit (volume fraction) 38 % 35-52 Automated erythrocyte mean corpuscular volume 90 [foz_us] 80-99 Automated erythrocyte mean corpuscular hemoglobin (mass per erythrocyte) 30 pg 25-34 Automated erythrocyte mean corpuscular hemoglobin concentration measurement ( mass/volume) 33 g/dL 32-36 Automated erythrocyte distribution width ratio 13.7 % 10.0-14.5 Automated blood platelet count (count/volume) 280 10*3/uL 130-400 Automated blood platelet mean volume measurement 9.6 [foz_us ] 7.4-10.4 Automated blood neutrophils/100 leukocytes 56 % 42-75 Automated blood lymphocytes/100 leukocytes 29 % 12-44 Blood monocytes/100 leukocytes 5 % NRG Automated blood eosinophils/100 leukocytes 5 % 0-10 Automated blood basophils/100 leukocytes 0 % 0-10 Blood neutrophils automated count (number/volume) 3.1 10*3 1.8-7.8 Blood lymphocytes automated count (number/volume) 1.6 10*3 1.0-4.0 Blood monocytes automated count (number/volume) 0.5 10*3 0.0-1.0 Automated eosinophil count 0.3 10*3/uL 0.0-0.3 Automated blood basophil count (count/volume) 0.0 10*3/uL 0.0-0.1 Manual blood segmented neutrophils/100 leukocytes 62 % NRG Blood band neutrophils/100 leukocytes 0 % NRG Manual blood lymphocytes/100 leukocytes 18 % NRG Manual eosinophils/100 leukocytes in nose 6 % NRG Manual blood basophils/100 leukocytes 0 % NRG Blood lymphocytes variant/100 leukocytes 9 % NRG Blood erythrocyte morphology finding identification [facility] Comprehensive metabolic panel - 04/22/17 05:18 Serum or plasma sodium measurement (moles/volume) 139 mmol/ L 135-145 Serum or plasma potassium measurement (moles/volume) 3.4 mmol/L 3.6-5.0 Serum or plasma chloride measurement (moles/volume) 109 mmol /L 98-107 Carbon dioxide 17 mmol/L 21-32 Serum or plasma anion gap determination (moles/volume) 13 mmol/L 5-14 Serum or plasma urea nitrogen measurement (mass/volume) 18 mg/dL 7-18 Serum or plasma creatinine measurement (mass/volume) 0.87 mg /dL 0.60-1.30 Serum or plasma urea nitrogen/creatinine mass ratio 21 NRG Serum or plasma creatinine measurement with calculation of estimated glomerular filtration rate > NRG Serum or plasma glucose measurement (mass/volume) 97 mg/dL 70-105 Serum or plasma calcium measurement (mass/volume) 9.2 mg/dL 8.5-10.1 Serum or plasma total bilirubin measurement (mass/volume) 0.5 mg/dL 0.1-1.0 Serum or plasma alkaline phosphatase measurement (enzymatic activity/volume) 87 U/L 40-136 Serum or plasma aspartate aminotransferase measurement (enzymatic activity/ volume) 19 U/L 5-34 Serum or plasma alanine aminotransferase measurement (enzymatic activity/volume ) 14 U/L 0-55 Serum or plasma protein measurement (mass/volume) 7.2 g/dL 6.4-8.2 Serum or plasma albumin measurement (mass/volume) 3.9 g/dL 3.2-4.5 Serum or plasma troponin i.cardiac measurement (mass/volume) - 04/22/17 05:18 Serum or plasma troponin i.cardiac measurement (mass/volume) < ng/mL <0.30 Methicillin resistant Staphylococcus aureus (MRSA) screening culture - 08:40 Methicillin resistant Staphylococcus aureus (MRSA) screening culture NEG NRG Serum or plasma troponin i.cardiac measurement (mass/volume) - 04/22/17 11:38 Serum or plasma troponin i.cardiac measurement (mass/volume) < ng/mL <0.30 Complete blood count (CBC) with automated white blood cell (WBC) differential - 04/23/17 04:15 Blood leukocytes automated count (number/volume) 9.9 10*3/ uL 4.3-11.0 Blood erythrocytes automated count (number/volume) 3.78 10*6 /uL 4.35-5.85 Venous blood hemoglobin measurement (mass/volume) 11.2 g/dL 11.5-16.0 Blood hematocrit (volume fraction) 34 % 35-52 Automated erythrocyte mean corpuscular volume 91 [foz_us] 80-99 Automated erythrocyte mean corpuscular hemoglobin (mass per erythrocyte) 30 pg 25-34 Automated erythrocyte mean corpuscular hemoglobin concentration measurement ( mass/volume) 33 g/dL 32-36 Automated erythrocyte distribution width ratio 13.8 % 10.0-14.5 Automated blood platelet count (count/volume) 259 10*3/uL 130-400 Automated blood platelet mean volume measurement 10.0 [foz_ us] 7.4-10.4 Automated blood neutrophils/100 leukocytes 89 % 42-75 Automated blood lymphocytes/100 leukocytes 6 % 12-44 Blood monocytes/100 leukocytes 5 % 0-12 Automated blood eosinophils/100 leukocytes 0 % 0-10 Automated blood basophils/100 leukocytes 0 % 0-10 Blood neutrophils automated count (number/volume) 8.7 10*3 1.8-7.8 Blood lymphocytes automated count (number/volume) 0.6 10*3 1.0-4.0 Blood monocytes automated count (number/volume) 0.5 10*3 0.0-1.0 Automated eosinophil count 0.0 10*3/uL 0.0-0.3 Automated blood basophil count (count/volume) 0.0 10*3/uL 0.0-0.1 Serum or plasma phosphate measurement (mass/volume) - 04/23/17 04:15 Serum or plasma phosphate measurement (mass/volume) 3.0 mg/ dL 2.3-4.7 Whole blood basic metabolic panel - 04/23/17 04:15 Serum or plasma sodium measurement (moles/volume) 138 mmol/ L 135-145 Serum or plasma potassium measurement (moles/volume) 4.4 mmol/L 3.6-5.0 Serum or plasma chloride measurement (moles/volume) 110 mmol /L 98-107 Carbon dioxide 18 mmol/L 21-32 Serum or plasma anion gap determination (moles/volume) 10 mmol/L 5-14 Serum or plasma urea nitrogen measurement (mass/volume) 21 mg/dL 7-18 Serum or plasma creatinine measurement (mass/volume) 0.81 mg /dL 0.60-1.30 Serum or plasma urea nitrogen/creatinine mass ratio 26 NRG Serum or plasma creatinine measurement with calculation of estimated glomerular filtration rate > NRG Serum or plasma glucose measurement (mass/volume) 125 mg/dL 70-105 Serum or plasma calcium measurement (mass/volume) 9.2 mg/dL 8.5-10.1 Magnesium - 04/23/17 04:15 Magnesium 1.6 mg/dL 1.8-2.4 Blood manual differential performed detection - 04/23/17 04:15 Blood monocytes/100 leukocytes 6 % NRG Manual blood segmented neutrophils/100 leukocytes 90 % NRG Blood band neutrophils/100 leukocytes 0 % NRG Manual blood lymphocytes/100 leukocytes 4 % NRG Manual eosinophils/100 leukocytes in nose 0 % NRG Manual blood basophils/100 leukocytes 0 % NRG Blood anisocytosis detection by light microscopy SLIGHT NRG Blood ovalocytes detection by light microscopy SLIGHT NRG Blood microcytes detection by light microscopy SLIGHT NRG THYROID STIMULATING HORMONE - 04/23/17 04:15 THYROID STIMULATING HORMONE 0.07 u[iU]/mL 0.35-4.94 Serum or plasma thyroxine (T4) free measurement (mass/volume) - 04/23/17 04:15 Serum or plasma thyroxine (T4) free measurement (mass/volume) 1.04 ng/dL 0.70-1.48 Serum or plasma thyroxine (T4) free measurement (mass/volume) - 04/23/17 04:15 Serum or plasma thyroxine (T4) free measurement (mass/volume) 1.04 ng/dL 0.70-1.48 TRIIODOTHRYONINE T3 FREE - 04/23/17 04:15 TRIIODOTHYRONINE T3 FREE 2.3 pg/mL 2.4- 4.5 Whole blood basic metabolic panel - 04/24/17 05:24 Serum or plasma sodium measurement (moles/volume) 137 mmol/ L 135-145 Serum or plasma potassium measurement (moles/volume) 3.9 mmol/L 3.6-5.0 Serum or plasma chloride measurement (moles/volume) 105 mmol /L 98-107 Carbon dioxide 19 mmol/L 21-32 Serum or plasma anion gap determination (moles/volume) 13 mmol/L 5-14 Serum or plasma urea nitrogen measurement (mass/volume) 17 mg/dL 7-18 Serum or plasma creatinine measurement (mass/volume) 0.76 mg /dL 0.60-1.30 Serum or plasma urea nitrogen/creatinine mass ratio 22 NRG Serum or plasma creatinine measurement with calculation of estimated glomerular filtration rate > NRG Serum or plasma glucose measurement (mass/volume) 87 mg/dL 70-105 Serum or plasma calcium measurement (mass/volume) 9.3 mg/dL 8.5-10.1 Complete blood count (CBC) with automated white blood cell (WBC) differential - 05/16/17 10:53 Blood leukocytes automated count (number/volume) 4.6 10*3/ uL 4.3-11.0 Blood erythrocytes automated count (number/volume) 3.83 10*6 /uL 4.35-5.85 Venous blood hemoglobin measurement (mass/volume) 11.5 g/dL 11.5-16.0 Blood hematocrit (volume fraction) 35 % 35-52 Automated erythrocyte mean corpuscular volume 91 [foz_us] 80-99 Automated erythrocyte mean corpuscular hemoglobin (mass per erythrocyte) 30 pg 25-34 Automated erythrocyte mean corpuscular hemoglobin concentration measurement ( mass/volume) 33 g/dL 32-36 Automated erythrocyte distribution width ratio 14.4 % 10.0-14.5 Automated blood platelet count (count/volume) 312 10*3/uL 130-400 Automated blood platelet mean volume measurement 9.6 [foz_us ] 7.4-10.4 Automated blood neutrophils/100 leukocytes 74 % 42-75 Automated blood lymphocytes/100 leukocytes 12 % 12-44 Blood monocytes/100 leukocytes 9 % 0-12 Automated blood eosinophils/100 leukocytes 4 % 0-10 Automated blood basophils/100 leukocytes 0 % 0-10 Blood neutrophils automated count (number/volume) 3.4 10*3 1.8-7.8 Blood lymphocytes automated count (number/volume) 0.6 10*3 1.0-4.0 Blood monocytes automated count (number/volume) 0.4 10*3 0.0-1.0 Automated eosinophil count 0.2 10*3/uL 0.0-0.3 Automated blood basophil count (count/volume) 0.0 10*3/uL 0.0-0.1 Comprehensive metabolic panel - 05/16/17 10:53 Serum or plasma sodium measurement (moles/volume) 140 mmol/ L 135-145 Serum or plasma potassium measurement (moles/volume) 3.5 mmol/L 3.6-5.0 Serum or plasma chloride measurement (moles/volume) 105 mmol /L 98-107 Carbon dioxide 26 mmol/L 21-32 Serum or plasma anion gap determination (moles/volume) 9 mmol/L 5-14 Serum or plasma urea nitrogen measurement (mass/volume) 25 mg/dL 7-18 Serum or plasma creatinine measurement (mass/volume) 1.08 mg /dL 0.60-1.30 Serum or plasma urea nitrogen/creatinine mass ratio 23 0-20 Serum or plasma creatinine measurement with calculation of estimated glomerular filtration rate 49 NRG Serum or plasma glucose measurement (mass/volume) 105 mg/dL 70-105 Serum or plasma calcium measurement (mass/volume) 9.8 mg/dL 8.5-10.1 Serum or plasma total bilirubin measurement (mass/volume) 0.4 mg/dL 0.1-1.0 Serum or plasma alkaline phosphatase measurement (enzymatic activity/volume) 91 U/L 40-136 Serum or plasma aspartate aminotransferase measurement (enzymatic activity/ volume) 21 U/L 5-34 Serum or plasma alanine aminotransferase measurement (enzymatic activity/volume ) 15 U/L 0-55 Serum or plasma protein measurement (mass/volume) 7.3 g/dL 6.4-8.2 Serum or plasma albumin measurement (mass/volume) 3.9 g/dL 3.2-4.5 Magnesium - 05/16/17 10:53 Magnesium 1.6 mg/dL 1.8-2.4 Serum or plasma troponin i.cardiac measurement (mass/volume) - 05/16/17 10:53 Serum or plasma troponin i.cardiac measurement (mass/volume) < ng/mL <0.30 THYROID STIMULATING HORMONE - 05/16/17 10:53 THYROID STIMULATING HORMONE 0.31 u[iU]/mL 0.35-4.94 Serum or plasma thyroxine (T4) free measurement (mass/volume) - 05/16/17 10:53 Serum or plasma thyroxine (T4) free measurement (mass/volume) 1.07 ng/dL 0.70-1.48 Encounters ACCT No. Visit Date/Time Discharge Status Pt. Type Provider Facility Loc./Unit Complaint [id number] 05/16/2017 09:59:00 2016 12:11:00 DIS Emergency ZAYNAB AVILA APRN [facility] ER PALPITATIONS [id number] 04/22/2017 10:00:00 2016 18:05:00 DIS Outpatient MARIA GUADALUPE VELASQUEZ DO [facility] 4TH AFIB,VIRK,HYPERTHYROIDISM [id number] 04/13/2017 14:49:00 2016 16:04:00 DIS Emergency DARIUS LAW MD [facility] ER SOA/ANXIETY [id number] 03/27/2017 23:31:00 2016 02:14:00 DIS Emergency JASPREET OWENS DO [facility] ER HIGH BLOOD PRESSURE [id number] 03/06/2017 23:34:00 2016 13:15:00 DIS Inpatient MARIA GUADALUPE VELASQUEZ DO [facility] 4TH RLE ATAXIA,UTI,HYPERKALEMIA,H/A,ACUTE RENAL INSUFF [id number] 2016 02:51:00 2016 04:40:00 DIS Emergency ROMAN DO JASPREET Javier [facility] ER HIGH BLOOD PRESSURE [id number] 10/22/2016 13:23:00 2015 11:41:00 DIS Outpatient MELECIO PATTON SANDY Luke [facility] REHAB LUMBAR BACK PAIN [id number] 10/14/2016 20:01:00 2015 22:10:00 DIS Emergency ZAYNAB AVILA Alexus SOLANO [facility] ER BLOOD PRESSURE CHECK [id number] 08/23/2016 14:08:00 2015 17:00:00 DIS Outpatient SANDY MAJANO DO [facility] REHAB LUMBAR BACK PAIN [id number] 08/03/2016 20:56:00 2015 21:54:00 DIS Emergency KEVIN OBANDO MD [facility] ER UTI/SOA [id number] 07/13/2016 09:34:00 2015 12:47:00 DIS Emergency KEVIN OBANDO MD [facility] ER ELEV BP/SOA [id number] 07/08/2016 23:10:00 2015 12:53:00 DIS Inpatient DARIUS LAW MD [facility] 4TH DYSPNEA; HTW URGENCY (IMPROVED); UTI; LUNG MASS [id number] 03/02/2015 03:22:00 2014 05:02:00 DIS Emergency KEVIN OBANDO MD [facility] ER HIGH BLOOD PRESSURE [id number] 09/20/2014 16:27:00 2013 23:59:59 CLS Outpatient JIM OLIVO MD, FACC, FACP CCDS [facility] LAB PAF,HTN,HYPERLIPADEMA [id number] 05/26/2014 13:37:00 2013 23:59:59 CLS Outpatient JIM OLIVO MD, FACC, FACP CCDS [facility] CARD A FIB, PALP [id number] 05/24/2014 14:05:00 2013 23:59:59 CLS Outpatient GEOVANI HANLEY FACC, ALI FACP CCDS [facility] LAB PAF,L [place] HYPERTROPHY,LBUNDLE BRACH BLOCK, [id number] 05/19/2014 13:06:00 2013 23:59:59 CLS Outpatient GEOVANI HANLEY FACRupert, ALI FACP CCDS [facility] LAB PAF,HYPERTENSION,CAD, HYPERLIPIDEMIA [id number] 10/29/2013 16:41:00 2012 23:59:59 CLS Outpatient GEOVANI HANLEY FACC, ALI FACP CCDS [facility] LAB PAF,HYPERTENSIVE HEART DISEASE,OTHER LEFT BUNDLE B [id number] 07/31/2013 09:12:00 2012 00:01:00 DIS Outpatient SANDY MAJANO DO [facility] LAB SEVERE HYPERTENSION [id number] 09/05/2013 14:38:00 2012 12:35:00 DIS Inpatient MICHELLE MACHUCA MD [facility] CSD CHF; HTN [id number] 09/01/2013 11:22:00 2012 23:59:59 CLS Outpatient MARIZA BAEZ [facility] LAB A-FIB,CAD,CHF,HTN, [id number] 08/14/2013 06:48:00 2012 23:59:59 CLS Outpatient GEOVANI HANLEY FACC, ALI FACP CCDS [facility] RAD CHF,HTN [id number] 08/12/2013 22:49:00 2012 00:10:00 DIS Emergency KEVIN OBANDO MD [facility] ER ELEVATED BP [id number] 08/11/2013 22:04:00 2012 22:57:00 DIS Emergency KEVIN OBANDO MD [facility] ER ELEVATED BP [id number] 08/08/2013 12:16:00 2012 21:06:00 DIS Inpatient MARLON STERLING MD [facility] ICU CHF/LP [id number] 07/06/2013 23:33:00 2012 00:59:00 DIS Emergency ANNETTE HANLEY, ZULY Meade [facility] ER HG BLOOD PRESSURE [id number] 05/28/2013 20:13:00 2012 21:55:00 DIS Emergency GISELLA HANLEY, KEVIN Hansen [facility] ER HIGH BLOOD PRESSURE [id number] 05/17/2017 07:00:00 ACT Outpatient CAMILLA CASTRO APRN [facility] SLEEP OBSERVED APNEA, SNORING, CHOKING/GASPING IN SLEEP [id number] 08/14/2016 13:09:00 ACT Outpatient SANDY MAJANO DO [facility] RAD ACUTE SYSTOLIC HEART FAILURE,LOWER BCK PAIN [id number] 01/17/2016 11:19:00 ACT Outpatient GEOVANI HANLEY FACC, JIM SCHULTE CCDS [facility] CARD AFIB, CAD [id number] 01/02/2016 16:05:00 ACT Outpatient GEOVANI HANLEY FACRupert, JIM SCHULTE CCDS [facility] LAB PALPITATIONS,PAF,CAD,CANCER OF LUNG, HYPERTENSION [id number] 10/28/2013 00:00:00 Document Registration [id number] 11/10/2012 11:04:00 Document Registration [id number] 10/15/2012 00:45:00 Document Registration [id number] 09/24/2010 20:11:00 Document Registration
== END 2017-05-16 12:11 | disposition home or self-care (01) ==
LOC: EDUNIT# 09:57 → ER 09:59
DX: I48.0 Paroxysmal atrial fibrillation (principal); I25.10 Atherosclerotic heart disease of native coronary artery without angina pectoris; J43.9 Emphysema, unspecified; I11.0 Hypertensive heart disease with heart failure; I50.9 Heart failure, unspecified; F41.9 Anxiety disorder, unspecified; F32.9 Major depressive disorder, single episode, unspecified; Z85.118 Personal history of other malignant neoplasm of bronchus and lung; Z79.02 Long term (current) use of antithrombotics/antiplatelets; Z86.73 Personal history of transient ischemic attack (TIA), and cerebral infarction without residual deficits; Z79.82 Long term (current) use of aspirin; Z87.891 Personal history of nicotine dependence; Z90.2 Acquired absence of lung [part of]
CPT/HCPCS: 36415; 71010; 80053; 83735; 84439; 84443; 84484; 85025; 93005

== ENCOUNTER 2017-05-17 07:00 | Outpatient (CLI) | payer MEDICARE, MEDICAID | END 2017-05-17 16:45 | disposition home or self-care (01) | LOC: SLEEP 07:00 | PROVIDERS: ATTEND Nurse Practitioner | DX: G47.30 Sleep apnea, unspecified (principal); R06.83 Snoring; I50.9 Heart failure, unspecified; I48.91 Unspecified atrial fibrillation ==

== ENCOUNTER 2017-06-17 23:57 | Day surgery (SDC) | payer MEDICARE, MEDICAID ==
[~2017-06-17] VITALS: Ht 162.6 cm; Wt 63.0 kg
[~2017-06-17 23:57] MED LIST changes: -DILT180C64 PO; +DILT180C90 PO
[2017-06-18] MEDS ORDERED: NS (IVPB) 250 ML IV ONE (02:31)
--- NOTE | 2017-06-18 02:31 | ED Cardiac General ---
History of Present Illness General Chief Complaint: General Problems/Pain Stated Complaint: LOW HEART RATE Nursing Triage Note: pt was walking in [facility] and started feeling weak, states she was feeling dizziness on arrival to ED, but feeling better now. Source: patient Exam Limitations: no limitations History of Present Illness Time seen by provider: 02:27 Initial Comments Patient came in the ER today because she is feeling weak while walking around the store and was scared to go home alone because she no she has a history of atrial fibrillation with RVR as well as bradycardia. She is on beta blockers twice daily and she did take them last night. She is also wearing a heart monitor on her belt. When she checked her blood pressure she said her systolic was 75/40 and her heart rate was in the 40s. She is not having any chest pain or shortness of breath just feeling very lightheaded and weak. She says she's also had problems with anemia and is seeing a nurse ob in [place] who has not talk to her about any A. fib defibrillator or pacemaker placement. She does have thyroid problems and said that her nurse ob referred her to an deputy register of deeds but she has not seen the deputy register of deeds yet. She used to smoke but quit in the 80s. She has not had a heart attack but she has had TIA. Allergies and Home Medications Allergies Coded Allergies: Penicillins (Unverified Allergy, Mild, RASH, 09/24/10) RUPAL Inhibitors (Verified Allergy, Unknown, HIVES, 12/11/16) atorvastatin (Verified Allergy, Unknown, HIVES, 12/11/16) iodine (Verified Allergy, Unknown, HIVES, 12/11/16) Home Medications Albuterol Sulfate 18 Gm Hfa.aer.ad, 2 PUFF INH Q4H PRN for SHORTNESS OF BREATH, (Reported) Apixaban 5 Mg Tablet, 5 MG PO BID, (Reported) LAST FILLED #60 03-14-17 Aspirin 81 Mg Tablet.dr, 81 MG PO DAILY, (Reported) Budesonide/Formoterol Fumarate 10.2 Gm Hfa.aer.ad, 2 PUFF INH BID, (Reported) Calcium Carbonate/Vitamin D3 1 Each Tablet, 1 TAB PO DAILY, (Reported) Diltiazem HCl 240 Mg Cap.er.24h, 240 MG PO DAILY, (Reported) LAST FILLED 02-28-17 #30 Diltiazem HCl 180 Mg Cap.er.24h, 360 MG PO DAILY, #30 Prescribed by: SANDY Bhavana PEDRO on 04/24/17 1625 Furosemide 20 Mg Tablet, 20 MG PO DAILY, (Reported) Furosemide 20 Mg Tablet, 20 MG PO HS PRN for SWELLING , (Reported) Metoprolol Tartrate 50 Mg Tablet, 50 MG PO BID, #60 Prescribed by: SANDY Bhavana PEDRO on 04/24/17 1625 [place] 3 Polyunsat Fatty Acids 1,000 Mg Cap, 3,000 MG PO DAILY, (Reported) TAKES 3 (1000MG) CAPSULES Potassium Chloride 8 Meq Tablet.er, 8 MEQ PO HS PRN for IF TAKING 2ND DOSE FUROSEMIDE, (Reported) LAST FILLED #30 02-27-17 Tiotropium [place] 4 Gm Mist.inhal, 2 PUFF IH DAILY, (Reported) Valsartan 80 Mg Tablet, 80 MG PO BID, (Reported) LAST FILLED #60 03-10-17 Review of Systems Constitutional: No chills, No diaphoresis, dizziness, No fever, malaise, weight loss (intentional) EENTM: No Blurred Vision, No Eye Pain Respiratory: Denies Cough, Denies Shortness of Air Cardiovascular: Denies Chest Pain, Denies Edema, Denies Irregular Heart Rate, Lightheadedness Gastrointestinal: Denies Abdominal Pain, Denies Diarrhea, Denies Nausea Genitourinary: Denies Burning, Denies Discharge Musculoskeletal: No back pain, No joint pain Skin: No pruritus, No rash Psychiatric/Neurological: Denies Headache, Denies Numbness Past Thgkapv-Lerllv-Crrsrg Hx Patient Social History Alcohol Use: Denies Use Recreational Drug Use: No Type Used: Cigarettes Former Smoker/When Quit: Mar 15, 1982 2nd Hand Smoke Exposure: No Recent Foreign Travel: No Contact w/Someone Who Travel: No Recent Infectious Disease Expo: No Recent Hopitalizations: Yes Immunizations Up To Date Tetanus Booster (TDap): Unknown Date of Pneumonia Vaccine: Aug 17, 2013 Date of Influenza Vaccine: Sep 07, 2013 Seasonal Allergies Seasonal Allergies: No Surgeries HX Surgeries: Yes (CARDIAC CATH; RIGHT LUNG RESECTION/TUMOR REMOVAL) Surgeries: Cardiac, Gallbladder, Hysterectomy, Lobectomy, Tonsillectomy Respiratory Hx Respiratory Disorders: Yes (+ 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 Genitourinary Hx Genitourinary Disorders: Yes Genitourinary Disorders: Bladder Infection Gastrointestinal Hx Gastrointestinal Disorders: Yes (S/P SOCORRO) Gastrointestinal Disorders: Gall Bladder Disease Musculoskeletal Hx Musculoskeletal Disorders: No Musculoskeletal Disorders: Arthritis, Chronic Back Pain Endocrine Hx Endocrine Disorders: Yes Endocrine Disorders: Hyperthyroidism HEENT HX ENT Disorders: Yes HEENT Disorders: Cataract Cancer Hx Cancer: Yes Cancer: Lung Psychosocial Hx Psychiatric Problems: Yes Behavioral Health Disorders: Anxiety, Depression Integumentary HX Skin/Integumentary Disorder: No Blood Transfusions Hx Blood Disorders: No Adverse Reaction to a Blood Tr: No Family Medical History Significant Family History: No Pertinent Family Hx Family Medial History: Patient reports no known family medical history. Physical Exam Vital Signs Vital Sign - Last 12Hours 06/18/17 01:22 Temp 98.4 Pulse 48 Resp 18 B/P (MAP) 138/61 Pulse Ox 100 O2 Delivery Room Air Capillary Refill : Less Than 3 Seconds General Appearance: No Apparent Distress, WD/WN, Anxious HEENT: PERRL/EOMI, Pharynx Normal Neck: Normal Inspection, Supple Respiratory: Lungs Clear, Normal Breath Sounds Cardiovascular: Regular Rate, Rhythm, No Edema, Normal Peripheral Pulses Gastrointestinal: Normal Bowel Sounds, Non Tender, Soft Extremity: Normal Capillary Refill, Normal Inspection, No Calf Tenderness, No Pedal Edema Neurologic/Psychiatric: Alert, Oriented x3 Skin: Normal Color, Warm/Dry Progress/Results/Core Measures Results/Orders Lab Results Laboratory Tests Test 06/18/17 02:40 Range/Units White Blood Count 8.1 4.3-11.0 10^3/uL Red Blood Count 3.51 L 4.35-5.85 10^6/uL Hemoglobin 10.6 L 11.5-16.0 G/DL Hematocrit 33 L 35-52 % Mean Corpuscular Volume 93 80-99 FL Mean Corpuscular Hemoglobin 30 25-34 PG Mean Corpuscular Hemoglobin Concent 32 32-36 G/DL Red Cell Distribution Width 14.2 10.0-14.5 % Platelet Count 378 130-400 10^3/uL Mean Platelet Volume 9.7 7.4-10.4 FL Neutrophils (%) (Auto) 66 42-75 % Lymphocytes (%) (Auto) 22 12-44 % Monocytes (%) (Auto) 9 0-12 % Eosinophils (%) (Auto) 4 0-10 % Basophils (%) (Auto) 0 0-10 % Neutrophils # (Auto) 5.3 1.8-7.8 X 10^3 Lymphocytes # (Auto) 1.7 1.0-4.0 X 10^3 Monocytes # (Auto) 0.7 0.0-1.0 X 10^3 Eosinophils # (Auto) 0.3 0.0-0.3 10^3/uL Basophils # (Auto) 0.0 0.0-0.1 10^3/uL Sodium Level 138 135-145 MMOL/L Potassium Level 3.9 3.6-5.0 MMOL/L Chloride Level 102 98-107 MMOL/L Carbon Dioxide Level 21 21-32 MMOL/L Anion Gap 15 H 5-14 MMOL/L Blood Urea Nitrogen 45 H 7-18 MG/DL Creatinine 1.83 H 0.60-1.30 MG/DL Estimat Glomerular Filtration Rate 27 BUN/Creatinine Ratio 25 Glucose Level 115 H 70-105 MG/DL Calcium Level 9.2 8.5-10.1 MG/DL Magnesium Level 2.2 1.8-2.4 MG/DL Total Bilirubin 0.3 0.1-1.0 MG/DL Aspartate Amino Transf (AST/SGOT) 17 5-34 U/L Alanine Aminotransferase (ALT/SGPT) 15 0-55 U/L Alkaline Phosphatase 102 40-136 U/L Troponin I < 0.30 <0.30 NG/ML Total Protein 7.3 6.4-8.2 GM/DL Albumin 3.8 3.2-4.5 GM/DL Thyroid Stimulating Hormone (TSH) 0.87 0.35-4.94 UIU/ML My Orders Orders - VEE CERRATO Troponin I (06/18/17 02:31) Chest 1 View, Ap/Pa Only (06/18/17 02:31) Ekg Tracing (06/18/17 02:31) Monitor-Rhythm Ecg Trace Only (06/18/17 02:31) Cbc With Automated Diff (06/18/17 02:31) Comprehensive Metabolic Panel (06/18/17 02:31) Magnesium (06/18/17 02:31) Thyroid Stimulating Hormone (06/18/17 02:31) Saline Lock/Iv-Start (06/18/17 02:31) Ns (Ivpb) (Sodium Chloride 0.9%) (06/18/17 02:31) Medications Given in ED Current Medications Medications Dose Ordered Sig/Ayan Route Start Time Stop Time Status Last Admin Dose Admin Sodium Chloride 250 ml @ 0 mls/hr Q0M ONCE IV 06/18/17 02:31 06/18/17 02:34 DC 06/18/17 02:41 0 MLS/HR Vital Signs/I&O Vital Sign - Last 12Hours 06/18/17 01:22 Temp 98.4 Pulse 48 Resp 18 B/P (MAP) 138/61 Pulse Ox 100 O2 Delivery Room Air Blood Pressure Mean: 86 ECG Initial ECG Impression Date: Jun 18, 2017 Initial ECG Impression Time: 02:21 Initial ECG Rate: 41 Initial ECG Rhythm: S.Brandon Initial ECG Intervals: Normal Initial ECG Impression: Sinus Bradycardia Initial ECG Comparisson: Unchanged Comment No T-wave elevation or depression. Diagnostic Imaging Diagonstic Imaging: Xray Plain Films/CT/US/NM/MRI: chest Comments No acute cardiopulmonary processes. Stable compared to 05/16/17 right lower lobe infiltrate/nodule. Reviewed: Reviewed by Me Departure Communication Time/Spoke to Admitting Phy: 04:[address] Rdz; discussed the case the patient's staying in symptomatic sinus bradycardia despite fluids. Blood pressure is been good. Discussed labs and normal troponin. Discussed the ADAM. He is willing to take the patient observation and see her in the morning. Impression Impression: Primary Impression: Symptomatic sinus bradycardia Disposition: ADMITTED INPATIENT Condition: Stable Decision to Admit Reason: Admit from ER (General) Decision to Admit/Date: Jun 18, 2017 Time/Decision to Admit Time: 04:04 Departure-Patient Inst. Referrals: NO,LOCAL PHYSICIAN (PCP/Family) Primary Care Physician Copy Copies To 1: JIM OLIVO MD FACP FACC VEE CABRERA Jun 18, 2017 02:31
[2017-06-18 02:53] LABS: BASOPHILS % (AUTO) 0 % (0-10); EOSINOPHILS # (AUTO) 0.3 10^3/uL (0.0-0.3); EOSINOPHILS % (AUTO) 4 % (0-10); LYMPHOCYTES # (AUTO) 1.7 X 10^3 (1.0-4.0); LYMPHOCYTES % (AUTO) 22 % (12-44); MEAN CORPUSCULAR HEMOGLOBIN 30 PG (25-34); MEAN CORPUSCULAR HGB CONC 32 G/DL (32-36); MEAN CORPUSCULAR VOLUME 93 FL (80-99); MEAN PLATELET VOLUME 9.7 FL (7.4-10.4); MONOCYTES # (AUTO) 0.7 X 10^3 (0.0-1.0); MONOCYTES % (AUTO) 9 % (0-12); NEUTROPHILS # (AUTO) 5.3 X 10^3 (1.8-7.8); NEUTROPHILS % (AUTO) 66 % (42-75); PLATELET COUNT 378 10^3/uL (130-400); RED BLOOD COUNT 3.51 10^6/uL (4.35-5.85); RED CELL DISTRIBUTION WIDTH 14.2 % (10.0-14.5); WHITE BLOOD COUNT 8.1 10^3/uL (4.3-11.0)
[2017-06-18 03:20] LABS: ALBUMIN 3.8 GM/DL (3.2-4.5); BILIRUBIN,TOTAL 0.3 MG/DL (0.1-1.0); CALCIUM 9.2 MG/DL (8.5-10.1); CREATININE SERUM 1.83 MG/DL (0.60-1.30); MAGNESIUM 2.2 MG/DL (1.8-2.4); POTASSIUM 3.9 MMOL/L (3.6-5.0); TOTAL PROTEIN 7.3 GM/DL (6.4-8.2)
[2017-06-18 03:43] LABS: THYROID STIMULATING HORMONE 0.87 UIU/ML (0.35-4.94)
[2017-06-18 04:45] VITALS: BP 136/67
[2017-06-18] MEDS ORDERED: ONDANSETRON 4 MG/2 ML (SDV) Z0FRAN IV PRN (05:30)
[2017-06-18 08:00] VITALS: BP 111/43
--- NOTE | 2017-06-18 08:41 | Diagnostic Imaging Report ---
INDICATION: Weakness. COMPARISON: 05/16/2017. FINDINGS: There is mild cardiomegaly. There is no pulmonary edema. The lungs are well-aerated. The perihilar density on the right is again noted with little overall change. No hilar adenopathy is noted. No pneumothorax or pleural effusion. IMPRESSION: The right infrahilar mass is again noted without appreciable change since the previous exam. Dictated by: Dictated on workstation # [id number]
[2017-06-18] MEDS ORDERED: METO100T2 PO (11:15)
[2017-06-18] MEDS ORDERED: DILT180C54 PO (11:15)
[2017-06-18] MEDS ORDERED: ALBU18HF2 IH (11:15)
[2017-06-18 11:30] VITALS: BP 139/67
--- NOTE | 2017-06-18 13:17 | Consultation-Cardiology ---
HPI-Cardiology Cardiology Consultation: Date of Consultation 06/18/17 Date of Admission Attending Physician Barber Rdz MD Admitting Physician Amanda,Local Physician Consulting Physician Barber RDZ MD HPI: Time Seen by Provider: 09:30 Chief Complaint: Near syncope This is a 76-year-old lady with history of atrial fibrillation. She also has history of stroke. She has an event monitor placed. Yesterday while she was walking in a store she felt very weak and near syncope. According to the patient her heart rate was 36. In the ER she had bradycardia as well with heart rate below 40. She is on Cardizem and metoprolol. Which was discontinued. Review of Systems-Cardiology Review of Systems Constitutional: No As described under HPI, No no symptoms reported, No chills, No fever, lightheadedness, malaise, tiredness, No weight loss, No weight gain, No other Eyes: No As described under HPI, No no symptoms reported, No blindness, No blurred vision, No contact lenses, No drainage, No decreased acuity, No foreign body sensation, No glasses, No inflammation, No pain, No photophobia, No previous injury, No shadows, No tunnel vision, No other, No vision change Ears/Nose/Throat: No As described under HPI, No no symptoms reported, No chronic hearing loss, No epistaxis, No ear discharge, No ear pain, No loose teeth, No mouth pain, No mouth swelling, No nasal drainage, No nose pain, No recent hearing loss, No throat pain, No throat swelling, No ulcerations, No other Respiratory: No no symptoms reported, No As described under HPI, No cough, No orthopnea, No shortness of breath, No SOB with excertion, No SOB at rest, No stridor, No wheezing, No other Cardiovascular: irregular heart rate (near syncope), other Gastrointestinal: No no symptoms reported, No As described under HPI, No abdomen distended, No abdominal pain, No blood streaked bowels, No constipation , No diarrhea, No difficulty swallowing, No nausea, No poor appetite, No poor fluid intake, No rectal bleeding, No vomiting, No other, No nausea/vomiting/ diarrhea, No stool coloration changes Genitourinary: No no symptoms reported, No As described under HPI, No burning, No dysuria, No discharge, No frequency, No flank pain, No hematuria, No incontinence, No pain, No urgency, No other, No urine frequency changes, No urine coloration changes Musculoskeletal: No no symptoms reported, No As describe under HPI, No back pain, No gout, No joint pain, No joint swelling, No muscle pain, No muscle stiffness, No neck pain, No other Skin: No no symptoms reported, No As described under HPI, No change in color, No change in hair/nails, No dryness, No lesions, No lumps, No rash, No other, No skin related problems, No ulcerations, No rash on exposed areas, No ulcerations on exposed areas Psychiatric/Neurological: No As described under HPI, No anxiety, No depression , No emotional problems, No focal weakness, No headache, No no symptoms reported , No numbness, No other, No pre-existing deficit, No seizure, No syncope, No tingling, No tremors, No weakness Hematologic: No no symptoms reported, No As described under HPI, No anemia, No blood clots, No easy bleeding, No easy bruising, No swollen glands, No other, No bleeding abnormalities QRG-[id number] Hx Patient Social History Alcohol Use: Denies Use Recreational Drug Use: No Smoking Status: Former Smoker Former smoker/When Quit: Mar 15, 1982 Type Used: Cigarettes 2nd Hand Smoke Exposure: No Recent Foreign Travel: No Recent Infectious Disease Expo: No Hospitalization with Isolation: Denies Physical Abuse Screen: No Sexual Abuse: No Immunizations Up To Date Tetanus Booster (TDap): Unknown Date of Pneumonia Vaccine: Aug 17, 2013 Date of Influenza Vaccine: Sep 07, 2013 Past Medical History PMH As described under Assessment. Family Medical History Family History: Patient reports no known family medical history. Allergies and Home Medications Allergies Coded Allergies: Penicillins (Unverified Allergy, Mild, RASH, 09/24/10) RUPAL Inhibitors (Verified Allergy, Unknown, HIVES, 12/11/16) atorvastatin (Verified Allergy, Unknown, HIVES, 12/11/16) iodine (Verified Allergy, Unknown, HIVES, 12/11/16) Home Medications Albuterol Sulfate 18 Gm Hfa.aer.ad, 2 PUFF IH Q4H PRN for SHORTNESS OF BREATH, ( Reported) Apixaban 5 Mg Tablet, 5 MG PO BID, (Reported) Aspirin 81 Mg Tablet.dr, 81 MG PO DAILY, (Reported) Budesonide/Formoterol Fumarate 10.2 Gm Hfa.aer.ad, 2 PUFF INH BID PRN for SHORTNESS OF BREATH, (Reported) LAST FILLED 04/02/17 #1 INHALER Diltiazem HCl 180 Mg Cap.er.24h, 180 MG PO BID, (Reported) Furosemide 20 Mg Tablet, 20 MG PO DAILY, (Reported) Furosemide 20 Mg Tablet, 20 MG PO HS PRN for SWELLING , (Reported) Metoprolol Tartrate 100 Mg Tablet, 100 MG PO BID, (Reported) Potassium Chloride 8 Meq Tablet.er, 8 MEQ PO HS PRN for IF TAKING 2ND DOSE FUROSEMIDE, (Reported) LAST FILLED #30 02-27-17 Tiotropium [place] 4 Gm Mist.inhal, 2 PUFF IH DAILY PRN for SHORTNESS OF BREATH, (Reported) LAST FILLED 04/02/17 #1 INHALER Valsartan 80 Mg Tablet, 80 MG PO BID, (Reported) Physical Exam-Cardiology Physical Exam Vital Signs/I&O Vital Sign - Last 12Hours 06/18/17 06/18/17 06/18/17 06/18/17 01:22 04:25 04:45 07:00 Temp 98.4 98.4 98.7 Pulse 48 40 39 43 Resp 18 18 16 B/P (MAP) 138/61 136/67 Pulse Ox 100 98 96 O2 Delivery Room Air Room Air Room Air 06/18/17 06/18/17 06/18/17 08:00 08:50 11:30 Temp 97.8 98.1 Pulse 42 41 Resp 14 16 B/P (MAP) 111/43 139/67 Pulse Ox 98 98 O2 Delivery Room Air Room Air Room Air Capillary Refill : Less Than 3 Seconds Constitutional: No appears stated age, No AAO x 3, No apparent distress, No PERRL, No well-developed, No well-nourished, No other HEENT: No PERRL, No normal ENT inspection, No TMs normal, No pharynx normal, No scleral icterus (R), No scleral icterus (L), No pale conjunctivae (R), No pale conjunctivae (L), No photophobia, No TM abnormal (R), No TM abnormal (L), No pharyngeal erythema, No tonsillar exudate, No other, No discharge, No EOMI, No hearing is well preserved, No hard of hearing, No oral hygience is good, No ulceration, No xanthelasmas are seen Neck: No non-tender, No full range of motion, No supple, No normal inspection, No carotid bruit, No limited range of motion, No lymphadenopathy (R), No lymphadenopathy (L), No tender lateral, No tender midline, No thyromegaly, No other, No carotid pulses are 2 + bilaterally, No with good upstrokes Respiratory: No accessory muscle use, No respiratory distress, No chest tender , No chest expansion is symmetric, No chest is bilaterally symmetric, No lungs clear to percussion, No lungs clear to auscultation, No crackles, No rhonchi, No rales, No stridor, No wheezing, No pleural rub, No other Cardiovascular: bradycardia, S1 and S2 Gastrointestinal: No tender, No soft, No round, No distended, No pulsatile mass , No organomegaly, No guarding, No rebound, No tenderness, No hernia, No mass, No audible bowel sounds, No abnormal bowel sounds, No abdominal bruits, No spleenomegaly, No other Rectal: deferred Extremities: No normal range of motion, No non-tender, No normal inspection, No pedal edema, No calf tenderness, No normal capillary refill, No pelvis stable , No calf tenderness, No inflammation, No pedal edema, No slow capillary refill , No swelling, No other, No abrasion, No clubbing, No cyanosis, No ecchymosis, No laceration, No no lower extremity edema bilateral, No significant edema, No tenderness, No wound Neurologic/Psychiatric: No fabric and accessories estimator II-XII nml as tested, No no motor/sensory deficits, No alert, No normal mood/affect, No oriented x 3, No abnormal cerebellar tests, No abnormal fabric and accessories estimator II-XII, No abnormal gait, No aphasia, No EOM palsy, No facial droop, No motor weakness, No sensory deficit, No depressed affect, No disoriented x 3, No other, No grossly intact, No power is 5/5 both on sides Skin: No normal color, No warm/dry, No cyanosis, No cool, No diaphoresis, No damp, No ecchymosis, No jaundice, No mottled, No pallor, No rash, No tattoos/ piercings, No ulcerations, No rash on exposed areas, No ulcerations on exposed areas, No other Data Review Labs Laboratory Tests 06/18/17 02:40: White Blood Count 8.1, Red Blood Count 3.51L, Hemoglobin 10.6L, Hematocrit 33L, Mean Corpuscular Volume 93, Mean Corpuscular Hemoglobin 30, Mean Corpuscular Hemoglobin Concent 32, Red Cell Distribution Width 14.2, Platelet Count 378, Mean Platelet Volume 9.7, Neutrophils (%) (Auto) 66, Lymphocytes (%) (Auto) 22, Monocytes (%) (Auto) 9, Eosinophils (%) (Auto) 4, Basophils (%) (Auto) 0, Neutrophils # (Auto) 5.3, Lymphocytes # (Auto) 1.7, Monocytes # (Auto) 0.7, Eosinophils # (Auto) 0.3, Basophils # (Auto) 0.0, Sodium Level 138, Potassium Level 3.9, Chloride Level 102, Carbon Dioxide Level 21, Anion Gap 15H, Blood Urea Nitrogen 45H, Creatinine 1.83H, Estimat Glomerular Filtration Rate 27, BUN/ Creatinine Ratio 25, Glucose Level 115H, Calcium Level 9.2, Magnesium Level 2.2 , Total Bilirubin 0.3, Aspartate Amino Transf (AST/SGOT) 17, Alanine Aminotransferase (ALT/SGPT) 15, Alkaline Phosphatase 102, Troponin I < 0.30, Total Protein 7.3, Albumin 3.8, Thyroid Stimulating Hormone (TSH) 0.87 ECG Impression ECG Initial ECG Impression: Sinus Bradycardia A/P-Cardiology Assessment/Admission Diagnosis Symptomatic bradycardia, Atrial fibrillation, TIA/CVA history of Plan This is a patient who requires Cardizem and beta coby for atrial fibrillation due to episodes of atrial fibrillation with rapid ventricular rate. However she developed symptomatic bradycardia; I have discontinued Cardizem and beta coby. She has an event monitor. We are waiting for the strips to be provided by the event monitor. However if we find significant bradycardia she may be a candidate for permanent pacemaker since she requires rate control for episodes of atrial fibrillation with RVR, however rate controlling agents given her significant symptomatic bradycardia. Her primary supervising appraiser is Dr. Cruz. Thank you for your consultation. Please call me if you have any questions. Roc Rdz MD, FACP, FACC, FSCAI, FHRS, CCDS Interventional Cardiology Cardiac Electrophysiology Vascular Medicine and Endovascular Interventions Clinical Quality Measures DVT/VTE Risk/Contraindication: Risk Factor Score Per Nursin RFS Level Per Nursing on Admit: 4+=Very High Barber RDZ MD Jun 18, 2017 13:17
[2017-06-18 16:47] VITALS: BP 147/68
[2017-06-18 20:00] VITALS: BP 146/94
[2017-06-18 23:15] VITALS: BP 184/79
[2017-06-18] MEDS ORDERED: amLODIPine 10 MG (NORVASC) TAB PO ONE (23:30)
[2017-06-19] VITALS (7 sets, daily range): BP systolic 128–188; BP diastolic 60–82
--- NOTE | 2017-06-19 08:30 | Progress Note-Cardiology ---
Cardiology SOAP Progress Note Subjective: Sitting up in bed. States she feels better this morning. She states yesterday she felt poorly most of the day. She reports dizziness and lightheadedness. She reports she felt as thought she might pass out, but did not. No c/o n/v/d, fever or chills. She currently is wearing a 30 day event monitor and she reports she received a call yesterday and was told her HR was 34. She denies any CP, palpitations or dyspnea. She lives at home alone. Objective: I&O/Vital Signs Vital Sign - Last 12Hours 06/18/17 06/19/17 06/19/17 06/19/17 23:15 00:30 01:00 01:53 Temp 98.6 Pulse 59 64 71 73 Resp 20 B/P (MAP) 184/79 188/77 166/78 Pulse Ox 98 O2 Delivery Room Air 06/19/17 06/19/17 04:00 07:00 Temp 98.0 Pulse 67 55 Resp 20 B/P (MAP) 134/70 Pulse Ox 98 O2 Delivery Room Air Intake and Output 06/19/17 00:00 Intake Total 450 ml Output Total 650 ml Balance -200 ml Weight (Pounds): 139 Weight (Ounces): 0.0 Weight (Calculated Kilograms): 63.032786 Constitutional: AAO x 3, well-developed Respiratory: No accessory muscle use, No respiratory distress, chest expansion is symmetric, chest is bilaterally symmetric, lungs clear to auscultation Cardiovascular: regular rate-rhythm, No JVD, S1 and S2 Gastrointestional: No tender, soft, round, audible bowel sounds Extremities: no lower extremity edema bilateral Neurologic/Psychiatric: grossly intact Skin: No ulcerations, No rash on exposed areas Results/Procedures: Labs Laboratory Tests 06/19/17 08:46: A/P: Assessment: Symptomatic bradycardia, recurrent, beta-coby therapy contributing Hypertension Marked hyperthyroidism, based on low TSH (0.17) of 03/28/17 and again TSH of 0.02 on labs of 04/20/17, followed and treated by her pcp Continuing need for beta-blockers to treat hypertension and PAF and hyperthyroidism Late March 2017 hospitalization with confusion; CT head with and w/o contrast did not show acute findings PAF. A-fib with RVR during hospitalization of March 2017, currently controlled Acute renal insufficiency likely d/t volume depletion d/t diuretics Thyroid goiter: Thyroid u/s of 04/21/17: Multiple bilateral thyroid nodules predominately solid and showed varying degrees of elements of intralesional cystic degeneration. Their multiplicity and appearance is most suggestive of multiple adenomas and goiterous disease. The dominant mass in the lower pole of the right lobe shows some lobulation of its fairly well-defined borders as well as some coarse intralesional calcifications Coronary artery disease, moderate in the left coronary system and moderate to moderately severe in the right coronary system on cardiac catheterization of . MPI of 04/23/17 did not show any significant ischemia and LVEF was normal. Last echo of 03/07/[address] Rdz: LVEF 60%, mod to sev pulm htn with RVSP 55 mmHg, mod MR, NATASHA, no evidence of intracardiac shunt. H/o diastolic congestive heart failure which currently appears compensated. Hypertension with left ventricular hypertrophy Hypertension, labile. 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. The patient is following with Dr Mejía of the Oncology services at [facility] History of hyperlipidemia being treated with statin therapy. Left bundle branch block. 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, now clinically resolved Impaired fasting glucose, followed by pcp Plan: Complex management issue. There is a continued need for BB tx to control HR and d/t uncontrolled hyperthyroidism. However, in the setting of symptomatic bradycardia we will first of all decrease BB dose for now. We do advise dual chamber PPM implantation to prevent symptomatic bradycardia. We will continue home dose of Diovan for blood pressure control. We will repeat lab this morning. We will hold Lasix d/t acute renal insufficiency. We will give her Eliquis this morning. We will consult her PCP Dr. Raciel Dias d/t hyperthyroidism. Monitor lab. This consult is being scribed by Dimitry Nolasco APRN on behalf of Dr. Cruz after discussion regarding plan of care. Physician Assessment Physician Assessment Feels better today, but reports marked symptoms of recurrent near-syncope at home Lungs: clear Cor: reg Ext: no edema or cyanosis A&P * As documented in our note above that I updated at the time of this writing * I spoke with her in detail today. There is a continuing need for beta- blockers for control of a fib and hypertension and also for control of her marked hyperthyroidism (for which she is still on no other therapy). This need for bb is in the setting of symptomatic lilliana episodes. Thus, pacemaker placement appears appropriated * I discussed this issue with Dr Rdz of the EPS on the phone. He also recommend proceeding with pacemaker placement * I discussed the rationale, procedure, risks, benefits, potential complications and alternatives of perm pacemaker placement with her in detail. She understands all issues and wishes to proceed * We are continuing low dose bb for now. Will increase to full dose after pm placement * Med consult for treatment of hyperthyroidism MARIZA NOLASCO Jun 19, 2017 08:30 JIM CRUZ MD FACP [facility] Jun 19, 2017 09:24
[2017-06-19] MEDS ORDERED: NS IV 1000 ML 1,000 ML IV ONE (09:01)
[2017-06-19] MEDS ORDERED: BACITRACIN INJECTION 50,000 UNIT, SODIUM CHLORIDE 0.9% IRRIGATIO 500 ML IR ONE ×2 (09:15)
[2017-06-19 09:19] LABS: ALBUMIN 3.9 GM/DL (3.2-4.5); BILIRUBIN,TOTAL 0.6 MG/DL (0.1-1.0); CALCIUM 9.8 MG/DL (8.5-10.1); CREATININE SERUM 1.07 MG/DL (0.60-1.30); MAGNESIUM 1.9 MG/DL (1.8-2.4)
[2017-06-19] MEDS ORDERED: APIXABAN 5 MG (ELIQUIS) TABLET PO NR (09:20)
[2017-06-19 09:39] LABS: THYROID STIMULATING HORMONE 0.64 UIU/ML (0.35-4.94)
[2017-06-19] MEDS: ACETAMINOPHEN 500 MG TAB (TYLENOL) PO PRN (12:30)
[2017-06-19] MEDS ORDERED: meTOprolol TARTRATE 25 MG (LOPRESSOR) TABLET PO NR (13:15)
--- NOTE | 2017-06-19 13:19 | Consultation ---
History of Present Illness History of Present Illness Patient Consulted On(deshawn/time) 06/19/17 13:18 Date Seen by Provider: Jun 19, 2017 Time Seen by Provider: 13:00 Reason for Visit: Consulted for hyperthyroidism History of Present Illness 76 yo F admitted with bradycardia and hypotension- Given previous history of admissions regarding paroxysmal afib and labs, and multiple goiter- patient may have hyperthyroidism as underlying cause. Pt has not been able to get into Dr. Stark office for endocrinology consult. I was consulted for medical recommendations of hyperthyroidism Allergies and Home Medications Allergies Coded Allergies: Penicillins (Unverified Allergy, Mild, RASH, 09/24/10) RUPAL Inhibitors (Verified Allergy, Unknown, HIVES, 12/11/16) atorvastatin (Verified Allergy, Unknown, HIVES, 12/11/16) iodine (Verified Allergy, Unknown, HIVES, 12/11/16) Home Medications Albuterol Sulfate 18 Gm Hfa.aer.ad, 2 PUFF IH Q4H PRN for SHORTNESS OF BREATH, ( Reported) Budesonide/Formoterol Fumarate 10.2 Gm Hfa.aer.ad, 2 PUFF INH BID PRN for SHORTNESS OF BREATH, (Reported) LAST FILLED 04/02/17 #1 INHALER Ciprofloxacin HCl 500 Mg Tablet, 500 MG PO BID, #10 Prescribed by: JIM OLIVO on 06/21/17 1303 Diltiazem HCl 180 Mg Cap.er.24h, 180 MG PO BID, (Reported) Furosemide 20 Mg Tablet, 20 MG PO DAILY, (Reported) Furosemide 20 Mg Tablet, 20 MG PO HS PRN for SWELLING , (Reported) Metoprolol Tartrate 100 Mg Tablet, 100 MG PO BID, (Reported) Potassium Chloride 8 Meq Tablet.er, 8 MEQ PO HS PRN for IF TAKING 2ND DOSE FUROSEMIDE, (Reported) LAST FILLED #30 02-27-17 Tiotropium [place] 4 Gm Mist.inhal, 2 PUFF IH DAILY PRN for SHORTNESS OF BREATH, (Reported) LAST FILLED 04/02/17 #1 INHALER Valsartan 80 Mg Tablet, 80 MG PO BID, (Reported) Past Yigkfag-Ryykhk-Wchkiy Hx Patient Social History Alcohol Use: Denies Use Recreational Drug Use: No Smoking Status: Former Smoker Type Used: Cigarettes Former Smoker/When Quit: Mar 15, 1982 2nd Hand Smoke Exposure: No Recent Foreign Travel: No Contact w/Someone Who Travel: No Recent Infectious Disease Expo: No Recent Hopitalizations: Yes Physical Abuse Screen: No Sexual Abuse: No Immunizations Up To Date Tetanus Booster (TDap): Unknown Date of Pneumonia Vaccine: Aug 17, 2013 Date of Influenza Vaccine: Sep 07, 2013 Seasonal Allergies Seasonal Allergies: No Surgeries HX Surgeries: Yes (CARDIAC CATH; RIGHT LUNG RESECTION/TUMOR REMOVAL) Surgeries: Cardiac, Gallbladder, Hysterectomy, Lobectomy, Tonsillectomy Respiratory Hx Respiratory Disorders: Yes (+ 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 Genitourinary Hx Genitourinary Disorders: Yes Genitourinary Disorders: Bladder Infection Gastrointestinal Hx Gastrointestinal Disorders: Yes (S/P SOCORRO) Gastrointestinal Disorders: Gall Bladder Disease Musculoskeletal Hx Musculoskeletal Disorders: No Musculoskeletal Disorders: Arthritis, Chronic Back Pain Endocrine Hx Endocrine Disorders: Yes Endocrine Disorders: Hyperthyroidism HEENT HX ENT Disorders: Yes HEENT Disorders: Cataract Cancer Hx Cancer: Yes Cancer: Lung Psychosocial Hx Psychiatric Problems: Yes Behavioral Health Disorders: Anxiety, Depression Integumentary HX Skin/Integumentary Disorder: No Blood Transfusions Hx Blood Disorders: No Adverse Reaction to a Blood Tr: No Family Medical History Significant Family History: No Pertinent Family Hx Family Medial History: Patient reports no known family medical history. Review of Systems Review of Systems General: No Chills, No Night Sweats HEENT: No Head Aches Pulmonary: No Dyspnea, No Cough Cardiovascular: No: Chest Pain, Palpitations Gastrointestinal: No: Abdominal Pain, Nausea, Vomiting Genitourinary: No Dysuria, No Frequency Musculoskeletal: No: neck pain, shoulder pain Neurological: No: Incoordination, Numbness, Weakness Physical Exam Vital Signs Vital Sign - Last 12Hours 06/18/17 01:22 Temp 98.4 Pulse 48 Resp 18 B/P (MAP) 138/61 Pulse Ox 100 O2 Delivery Room Air Capillary Refill : Less Than 3 Seconds General Appearance: No Apparent Distress, WD/WN HEENT: PERRL/EOMI Neck: Full Range of Motion, Non Tender, Supple Respiratory: Chest Non Tender, Lungs Clear, Normal Breath Sounds Cardiovascular: Other (irregular rhythm normal rate) Gastrointestinal: Normal Bowel Sounds, Non Tender, Soft Rectal: Deferred Back: Normal Inspection, No CVA Tenderness, No Vertebral Tenderness Extremity: Normal Inspection, Normal Range of Motion, Non Tender Neurologic/Psychiatric: Alert, Oriented x3 Skin: Normal Color, Warm/Dry Assessment/Plan Assessment/Plan Assessment/Plan 76 yo F *suspected hyperthyroidism- contacted Dr. Stark office- they have received referral and thyroid sono- discussed case with Dr. Stark- no intervention right now as pt is not having a thyroid storm- no need for methimazole. -further discussion Dr. Stark's office has been trying to contact another pt with last name of Jeimy- they have not tried to call Brandi- Pt has an appt scheduled for October 2017- I talked with Dr. Stark and she will try to move her up sooner given recent admission. *paroxysmal atrial fibrillation- cardiology *bradycardia- cardiology *hypotension- cardiology Dispo: pt is undergoing pacemaker placement 06/20/17 I will follow along. Problems: Clinical Quality Measures DVT/VTE Risk/Contraindication: Risk Factor Score Per Nursin RFS Level Per Nursing on Admit: 4+=Very High LUI KRUEGER MD Jun 19, 2017 13:19
[2017-06-19] MEDS ORDERED: RT-ALBUTEROL SULF 2.5 MG/3 ML PRE-MIX VIAL IH PRN (13:45)
[2017-06-19] MEDS: LORazepam 0.5 MG (ATIVAN) TABLET PO PRN (13:59)
[2017-06-19] MEDS: VALSARTAN 80 MG (DIOVAN) TAB PO SCH (20:40)
[2017-06-19] MEDS ORDERED: meTOprolol TARTRATE 25 MG (LOPRESSOR) TABLET PO SCH (21:00)
[2017-06-20] VITALS (13 sets, daily range): BP systolic 109–173; BP diastolic 62–90
[2017-06-20 04:14] LABS: MEAN PLATELET VOLUME 9.6 FL (7.4-10.4); RED BLOOD COUNT 3.63 10^6/uL (4.35-5.85); RED CELL DISTRIBUTION WIDTH 13.8 % (10.0-14.5); WHITE BLOOD COUNT 6.7 10^3/uL (4.3-11.0)
[2017-06-20 04:22] LABS: INR 1.1 (0.8-1.4); PROTHROMBIN TIME PATIENT 14.2 SEC (12.2-14.7)
[2017-06-20 04:36] LABS: ALBUMIN 3.9 GM/DL (3.2-4.5); BILIRUBIN,TOTAL 0.6 MG/DL (0.1-1.0); CALCIUM 9.7 MG/DL (8.5-10.1); CREATININE SERUM 1.07 MG/DL (0.60-1.30); POTASSIUM 4.1 MMOL/L (3.6-5.0); TOTAL PROTEIN 7.4 GM/DL (6.4-8.2)
[2017-06-20] MEDS: VANCOMYCIN INJECTION 1,000 MG in NS (IVPB) 250 ML IV NR ×2 (06:28→11:00)
[2017-06-20] MEDS ORDERED: HEParin (CATH LAB) 1,000 ML IV ONE (06:43)
[2017-06-20] MEDS ORDERED: NS IV 1000 ML 1,000 ML ONE (06:43)
[2017-06-20] MEDS ORDERED: VANCOMYCIN 1000 MG/VIAL ONE (10:38)
[2017-06-20] MEDS ORDERED: NS (IVPB) 250 ML ONE (10:39)
[2017-06-20] MEDS ORDERED: NS IV 1000 ML 1,000 ML IV ONE (11:00)
[2017-06-20] MEDS ORDERED: VANCOMYCIN INJECTION 1,000 MG in NS (IVPB) 250 ML IV ONE (12:00)
[2017-06-20] MEDS ORDERED: MIDAZOLAM 2 MG/2 ML (VERSED) VIAL ONE (12:19)
[2017-06-20] MEDS ORDERED: NEO/POLY/BAC (NEOSPORIN) OINT 15 GM TUBE ONE (12:54)
[2017-06-20] MEDS ORDERED: NS IV 1000 ML 1,000 ML IV SCH (13:19)
--- NOTE | 2017-06-20 13:24 | Progress Note-Cardiology ---
Cardiology SOAP Progress Note Subjective: No cp or palp or syncope Objective: I&O/Vital Signs Vital Sign - Last 12Hours 06/20/17 06/20/17 06/20/17 06/20/17 04:00 07:00 08:15 09:32 Temp 97.9 98.2 Pulse 40 57 64 Resp 20 14 B/P (MAP) 138/62 132/78 Pulse Ox 97 98 O2 Delivery Room Air Room Air Room Air Intake and Output 06/20/17 00:00 Intake Total 830 ml Output Total 1850 ml Balance -1020 ml Weight (Pounds): 139 Weight (Ounces): 0.0 Weight (Calculated Kilograms): 63.901177 Constitutional: AAO x 3, well-developed Respiratory: No accessory muscle use, No respiratory distress, chest expansion is symmetric, chest is bilaterally symmetric, lungs clear to auscultation Cardiovascular: regular rate-rhythm, No JVD, S1 and S2 Gastrointestional: No tender, soft, round, audible bowel sounds Extremities: no lower extremity edema bilateral Neurologic/Psychiatric: grossly intact Skin: No ulcerations, No rash on exposed areas Results/Procedures: Labs Laboratory Tests 06/20/17 03:40: White Blood Count 6.7, Red Blood Count 3.63L, Hemoglobin 10.9L, Hematocrit 34L, Mean Corpuscular Volume 93, Mean Corpuscular Hemoglobin 30, Mean Corpuscular Hemoglobin Concent 32, Red Cell Distribution Width 13.8, Platelet Count 330, Mean Platelet Volume 9.6, Prothrombin Time 14.2, INR Comment 1.1, Sodium Level 137, Potassium Level 4.1, Chloride Level 105, Carbon Dioxide Level 19L, Anion Gap 13, Blood Urea Nitrogen 26H, Creatinine 1.07, Estimat Glomerular Filtration Rate 50, BUN/Creatinine Ratio 24, Glucose Level 80, Calcium Level 9.7, Magnesium Level 2.0, Total Bilirubin 0.6, Aspartate Amino Transf (AST/SGOT) 17, Alanine Aminotransferase (ALT/SGPT) 13, Alkaline Phosphatase 104, Total Protein 7.4, Albumin 3.9 Laboratory Tests 06/19/17 08:46 06/20/17 03:40 A/P: Assessment: Symptomatic bradycardia, recurrent, beta-coby therapy contributing, corrected with MRI-compatible, dual chamber pacemaker implantation on 06/20/17 ( RV lead RVOT, RA lead RA appendage) Hypertension Marked hyperthyroidism, based on low TSH (0.17) of 03/28/17 and again TSH of 0.02 on labs of 04/20/17, followed and treated by her pcp Continuing need for beta-blockers to treat hypertension and PAF and hyperthyroidism Late March 2017 hospitalization with confusion; CT head with and w/o contrast did not show acute findings PAF. A-fib with RVR during hospitalization of March 2017, currently controlled Acute renal insufficiency likely d/t volume depletion d/t diuretics Thyroid goiter: Thyroid u/s of 04/21/17: Multiple bilateral thyroid nodules predominately solid and showed varying degrees of elements of intralesional cystic degeneration. Their multiplicity and appearance is most suggestive of multiple adenomas and goiterous disease. The dominant mass in the lower pole of the right lobe shows some lobulation of its fairly well-defined borders as well as some coarse intralesional calcifications Coronary artery disease, moderate in the left coronary system and moderate to moderately severe in the right coronary system on cardiac catheterization of . MPI of 04/23/17 did not show any significant ischemia and LVEF was normal. Last echo of 03/07/[address] Rdz: LVEF 60%, mod to sev pulm htn with RVSP 55 mmHg, mod MR, NATASHA, no evidence of intracardiac shunt. H/o diastolic congestive heart failure which currently appears compensated. Hypertension with left ventricular hypertrophy Hypertension, labile. History of R lung wedge resection for non-small cell carcinoma in March [address] Mccord at [facility]. The patient is following with Dr Mejía of the Oncology services at [facility] History of hyperlipidemia being treated with statin therapy. Left bundle branch block. 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
[2017-06-20] MEDS ORDERED: PATIENT MAY USE OWN MEDS, ALL PO SCH (13:30)
[2017-06-20] MEDS: ASPIRIN E.C. 81 MG (ECOTRIN) TAB PO SCH (13:59)
[2017-06-20] MEDS: VALSARTAN 80 MG (DIOVAN) TAB PO SCH ×2 (14:00→20:30)
--- NOTE | 2017-06-20 15:21 | Diagnostic Imaging Report ---
EXAMINATION: AP and lateral views of the chest. INDICATION: Post cardiac device placement. FINDINGS: There is a left perihilar curvilinear opacity similar to 06/20/17, likely related to atelectasis. The rest of the lungs appear clear with hyperinflation; however, suggestive of background COPD. No effusion or pneumothorax. The mediastinum and david appear unremarkable. There is a pacemaker with two cardiac leads seen. No pneumothorax. IMPRESSION: COPD. Right perihilar atelectasis. Dictated by: Dictated on workstation # [id number]
[2017-06-20] MEDS: ACETAMINOPHEN 500 MG TAB (TYLENOL) PO PRN ×2 (17:29→20:31)
[2017-06-20] MEDS: CIPROFLOXACIN 500 MG (CIPRO) TABLET PO SCH (20:30)
[2017-06-20] MEDS: meTOprolol TARTRATE 50 MG (LOPRESSOR) TAB PO SCH (20:30)
[2017-06-20] MEDS: LORazepam 0.5 MG (ATIVAN) TABLET PO PRN (20:31)
[2017-06-21] VITALS: BP 114/65
[2017-06-21 04:00] VITALS: BP 134/66
[2017-06-21 04:01] LABS: BASOPHILS % (AUTO) 0 % (0-10); EOSINOPHILS # (AUTO) 0.2 10^3/uL (0.0-0.3); EOSINOPHILS % (AUTO) 3 % (0-10); LYMPHOCYTES # (AUTO) 0.9 X 10^3 (1.0-4.0); LYMPHOCYTES % (AUTO) 13 % (12-44); MEAN CORPUSCULAR HEMOGLOBIN 30 PG (25-34); MEAN CORPUSCULAR HGB CONC 33 G/DL (32-36); MEAN CORPUSCULAR VOLUME 93 FL (80-99); MEAN PLATELET VOLUME 9.2 FL (7.4-10.4); MONOCYTES # (AUTO) 0.5 X 10^3 (0.0-1.0); MONOCYTES % (AUTO) 8 % (0-12); NEUTROPHILS % (AUTO) 76 % (42-75); PLATELET COUNT 277 10^3/uL (130-400); RED BLOOD COUNT 3.35 10^6/uL (4.35-5.85); RED CELL DISTRIBUTION WIDTH 13.7 % (10.0-14.5); WHITE BLOOD COUNT 6.6 10^3/uL (4.3-11.0)
[2017-06-21 04:24] LABS: ALANINE AMINOTRANSFERASE 13 U/L (0-55); ALBUMIN 3.3 GM/DL (3.2-4.5); ANION GAP 12 MMOL/L (5-14); ASPARTATE AMINO TRANSFERASE 18 U/L (5-34); BILIRUBIN,TOTAL 0.9 MG/DL (0.1-1.0); BLOOD UREA NITROGEN 24 MG/DL (7-18); BUN/CREATININE RATIO 28; CALCIUM 9.1 MG/DL (8.5-10.1); CARBON DIOXIDE 18 MMOL/L (21-32); CHLORIDE 107 MMOL/L (98-107); CREATININE SERUM 0.87 MG/DL (0.60-1.30); GFR ESTIMATED > 60; MAGNESIUM 1.8 MG/DL (1.8-2.4); POTASSIUM 4.3 MMOL/L (3.6-5.0); SODIUM 137 MMOL/L (135-145); TOTAL PROTEIN 6.3 GM/DL (6.4-8.2)
[2017-06-21 04:29] LABS: GLUCOSE 56 MG/DL (70-105)
[2017-06-21 08:00] VITALS: BP 161/81
[2017-06-21] MEDS: CIPROFLOXACIN 500 MG (CIPRO) TABLET PO SCH (08:53)
[2017-06-21] MEDS: meTOprolol TARTRATE 50 MG (LOPRESSOR) TAB PO SCH (08:53)
[2017-06-21] MEDS: ASPIRIN E.C. 81 MG (ECOTRIN) TAB PO SCH (08:53)
[2017-06-21] MEDS: VALSARTAN 80 MG (DIOVAN) TAB PO SCH (08:53)
[2017-06-21] MEDS ORDERED: VANCOMYCIN INJECTION 1,000 MG in NS (IVPB) 250 ML IV SCH (09:00)
[2017-06-21 12:37] VITALS: BP 156/76
--- NOTE | 2017-06-21 13:01 | Progress Note-Cardiology ---
Cardiology SOAP Progress Note Objective: I&O/Vital Signs Vital Sign - Last 12Hours 06/21/17 06/21/17 06/21/17 06/21/17 01:00 04:00 07:00 08:00 Temp 97.2 Pulse 69 63 64 B/P (MAP) 134/66 Pulse Ox 99 O2 Delivery Room Air Room Air 06/21/17 06/21/17 08:00 12:37 Temp 99.3 98.2 Pulse 77 75 Resp 18 20 B/P (MAP) 161/81 156/76 Pulse Ox 97 98 O2 Delivery Room Air Room Air Intake and Output 06/21/17 00:00 Intake Total 540 ml Output Total 2300 ml Balance -1760 ml Weight (Pounds): 139 Weight (Ounces): 0.0 Weight (Calculated Kilograms): 63.431136 Device Insertion Site: no signs of inflammation, other Swelling: moderate amount of swelling (mod bruising and swelling) Constitutional: AAO x 3, well-developed Respiratory: No accessory muscle use, No respiratory distress, chest expansion is symmetric, chest is bilaterally symmetric, lungs clear to auscultation Cardiovascular: regular rate-rhythm, No JVD, S1 and S2 Gastrointestional: No tender, soft, round, audible bowel sounds Extremities: no lower extremity edema bilateral Neurologic/Psychiatric: grossly intact Skin: No ulcerations, No rash on exposed areas Results/Procedures: Labs Laboratory Tests 06/21/17 03:52: White Blood Count 6.6, Red Blood Count 3.35L, Hemoglobin 10.1L, Hematocrit 31L, Mean Corpuscular Volume 93, Mean Corpuscular Hemoglobin 30, Mean Corpuscular Hemoglobin Concent 33, Red Cell Distribution Width 13.7, Platelet Count 277, Mean Platelet Volume 9.2, Neutrophils (%) (Auto) 76H, Lymphocytes (%) (Auto) 13 , Monocytes (%) (Auto) 8, Eosinophils (%) (Auto) 3, Basophils (%) (Auto) 0, Neutrophils # (Auto) 5.0, Lymphocytes # (Auto) 0.9L, Monocytes # (Auto) 0.5, Eosinophils # (Auto) 0.2, Basophils # (Auto) 0.0, Sodium Level 137, Potassium Level 4.3, Chloride Level 107, Carbon Dioxide Level 18L, Anion Gap 12, Blood Urea Nitrogen 24H, Creatinine 0.87, Estimat Glomerular Filtration Rate > 60, BUN /Creatinine Ratio 28, Glucose Level 56*L, Calcium Level 9.1, Magnesium Level 1.8 , Total Bilirubin 0.9, Aspartate Amino Transf (AST/SGOT) 18, Alanine Aminotransferase (ALT/SGPT) 13, Alkaline Phosphatase 106, Total Protein 6.3L, Albumin 3.3 06/21/17 05:21: Glucometer 111H Laboratory Tests 06/20/17 03:40 06/21/17 03:52 A/P: Assessment: Symptomatic bradycardia, recurrent, beta-coby therapy contributing, corrected with MRI-compatible, dual chamber pacemaker implantation on 06/20/17 ( RV lead RVOT, RA lead RA appendage). The device is functioning normally on interrogation of 06/21/17 Moderate hematoma at site of pacemaker. No signs of inflammation Hypertension Marked hyperthyroidism, based on low TSH (0.17) of 03/28/17 and again TSH of 0.02 on labs of 04/20/17, followed and treated by her pcp Continuing need for beta-blockers to treat hypertension and PAF and hyperthyroidism Late March 2017 hospitalization with confusion; CT head with and w/o contrast did not show acute findings PAF. A-fib with RVR during hospitalization of March 2017, currently controlled Acute renal insufficiency likely d/t volume depletion d/t diuretics Thyroid goiter: Thyroid u/s of 04/21/17: Multiple bilateral thyroid nodules predominately solid and showed varying degrees of elements of intralesional cystic degeneration. Their multiplicity and appearance is most suggestive of multiple adenomas and goiterous disease. The dominant mass in the lower pole of the right lobe shows some lobulation of its fairly well-defined borders as well as some coarse intralesional calcifications Coronary artery disease, moderate in the left coronary system and moderate to moderately severe in the right coronary system on cardiac catheterization of . MPI of 04/23/17 did not show any significant ischemia and LVEF was normal. Last echo of 03/07/[address] Rdz: LVEF 60%, mod to sev pulm htn with RVSP 55 mmHg, mod MR, NATASHA, no evidence of intracardiac shunt. H/o diastolic congestive heart failure which currently appears compensated. Hypertension with left ventricular hypertrophy Hypertension, labile. History of R lung wedge resection for non-small cell carcinoma in March [address] Mccord at [facility]. The patient is following with Dr Mejía of the Oncology services at [facility] History of hyperlipidemia being treated with statin therapy. Left bundle branch block. 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
[2017-06-21] MEDS ORDERED: CIPR-225 PO (13:03)
--- NOTE | 2017-06-21 13:04 | Discharge Inst-Post Device ---
Discharge Inst-Post Device Follow up/Plan F/u with Dr Cruz on June 24 Heart Healthy Diet Do not lift arm on side of device placement above head for 4 weeks. Do not push and pull heavy objects for 4 weeks. Activity as tolerated. Leave dressing on until follow up at the office. JIM CRUZ MD FACP [facility] Jun 21, 2017 13:04
--- NOTE | 2017-06-21 13:09 | Cardiology Discharge Summary ---
Diagnosis/Chief Complaint Date of Admission Jun 18, 2017 at 04:40 Date of Discharge 06/21/17 Final/Discharge Diagnosis Symptomatic bradycardia, recurrent, beta-coby therapy contributing, corrected with MRI-compatible, dual chamber pacemaker implantation on 06/20/17 ( RV lead RVOT, RA lead RA appendage). The device is functioning normally on interrogation of 06/21/17 Moderate hematoma at site of pacemaker. No signs of inflammation Hypertension Marked hyperthyroidism, based on low TSH (0.17) of 03/28/17 and again TSH of 0.02 on labs of 04/20/17, followed and treated by her pcp Continuing need for beta-blockers to treat hypertension and PAF and hyperthyroidism Late March 2017 hospitalization with confusion; CT head with and w/o contrast did not show acute findings PAF. A-fib with RVR during hospitalization of March 2017, currently controlled Acute renal insufficiency likely d/t volume depletion d/t diuretics Thyroid goiter: Thyroid u/s of 04/21/17: Multiple bilateral thyroid nodules predominately solid and showed varying degrees of elements of intralesional cystic degeneration. Their multiplicity and appearance is most suggestive of multiple adenomas and goiterous disease. The dominant mass in the lower pole of the right lobe shows some lobulation of its fairly well-defined borders as well as some coarse intralesional calcifications Coronary artery disease, moderate in the left coronary system and moderate to moderately severe in the right coronary system on cardiac catheterization of . MPI of 04/23/17 did not show any significant ischemia and LVEF was normal. Last echo of 03/07/[address] Rdz: LVEF 60%, mod to sev pulm htn with RVSP 55 mmHg, mod MR, NATASHA, no evidence of intracardiac shunt. H/o diastolic congestive heart failure which currently appears compensated. Hypertension with left ventricular hypertrophy Hypertension, labile. History of R lung wedge resection for non-small cell carcinoma in March [address] Mccord at [facility]. The patient is following with Dr Mejía of the Oncology services at [facility] History of hyperlipidemia being treated with statin therapy. Left bundle branch block. 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, now clinically resolved Impaired fasting glucose, followed by pcp Chief Complaint/HPI Chief Complaint/HPI Please see progress note of 06/21/17 for condition at discharge and a discussion of plan Face to face time spent with patient at this visit and discharge: 12:35 pm - 1: 10 pm Discharge Summary Procedures Dual chamber pacemaker implantation on 06/20/17 Hospital Course Pending Labs Laboratory Tests 06/21/17 05:21: Glucometer 111 Discussion & Recommendations Home Medications Reviewed patient Home Medication Reconciliation Form Discharge Home Medications: Reviewed and agree with Discharge Medication list on patient's Discharge Instruction sheet Instructions to patient/family F/u with Dr Cruz on June 24 Clinical Quality Measures DVT/VTE Risk/Contraindication: Risk Factor Score Per Nursin RFS Level Per Nursing on Admit: 4+=Very High JIM CRUZ MD FACP FAC CCDS Jun 21, 2017 13:09
[2017-06-21] MEDS: LORazepam 0.5 MG (ATIVAN) TABLET PO PRN (13:27)
[2017-06-22] MEDS ORDERED: TROUGH ORDER-PHARMACY XX NR (08:00)
[2017-06-22] MEDS ORDERED: HYDR-3812 PO (16:54)
--- NOTE | 2017-06-25 13:06 | OPERATIVE REPORT ---
DATE OF SERVICE: 06/20/2017 PREOPERATIVE DIAGNOSIS: Symptomatic bradycardia. POSTOPERATIVE DIAGNOSIS: Symptomatic bradycardia. PROCEDURE: Dual chamber pacemaker implantation (MRI compatible). Right ventricular lead is at the right ventricular outflow tract position and the right atrial lead is at the right atrial appendage. ESTIMATED BLOOD LOSS: Approximately 20 milliliters. The patient is a 76-year-old lady with symptomatic bradycardia who underwent dual chamber pacemaker implantation after having obtained an informed consent. She was brought to the cardiac catheterization laboratory in a fasting state. The left prepectoral area was prepared and draped in the usual sterile fashion. One percent Lidocaine was used for local anesthesia. Modified Seldinger technique was used to advance 2 guidewires into the right subclavian vein and the tip of the guidewires was placed in the right atrium. Sharp and blunt dissection was used to make a pacemaker pocket. Good hemostasis was assured. The packerhead machine operator was packed with gauze soaked in an antibiotic solution. The guidewires were used to advance the sheaths and the guidewires were removed. The sheaths were used to advance leads and the sheaths were removed. All lead manipulation was carried out under fluoroscopy. The right ventricular lead is an active fixation lead and it was placed at the right ventricular outflow tract. This lead is Biotronik Solia model [id number] with serial number [id number]. The pacing impedance is 720 ohms and the R waves were sensed at 9.7 millivolts. Ventricular capture threshold was 0.5 volts at 0.5 milliseconds. There was no diaphragmatic stimulation at 10 volts. The atrial lead is Biotronik Solia S-53 with reference number [id number] and serial number [id number]. It was placed at the right atrial appendage and actively fixed. The lead impedance is 678 ohms. EP P waves were sensed at 3.5 millivolts. Atrial capture threshold is 1.2 volts at 0.5 milliseconds. There was no diaphragmatic stimulation at 10 volts. The leads were attached to a dual chamber pacemaker. This is Biotronik Eluna 8 with reference number [id number] and serial number [id number]. The pacemaker pocket was again inspected before putting the pacemaker in the pocket. The antibiotic gauze was removed. Five milliliters of D-stat flowable was injected to treat mild oozing in the pocket. The pacemaker and the leads were then placed in the pocket and the pocket was closed in 2 layers using 3.0 Vicryl. At the time of lead positioning, we secured the leads at the prepectoral fascia with sleeves and non-absorbable suture over the sleeves. The pacemaker leads were inspected at the time of final placement and all leads were found to be correctly positioned. The patient was transferred out of the cardiac catheterization laboratory in a stable condition and she tolerated the procedure well. Job ID: [id number] DocumentID: [id number] Dictated Date: 06/20/2017 13:15:41 Financial Institution Manager Date: 06/25/2017 13:06:05 Dictated By: JIM OLIVO MD, MA, FACP, FACC,
== END 2017-06-21 15:15 | disposition home or self-care (01) ==
LOC: EDUNIT# 23:57 → ER 06-18 00:05 → UNDOADMOB 06-18 04:00 → ICU 06-18 04:00 → UNDOADMOB 06-18 04:40 → ICU 06-18 04:40 → SDC 06-18 04:40 → ICU 06-18 04:40 → SDC 06-21 15:15 → UNDODISOB 06-21 15:15
PROVIDERS: ATTEND Internal Medicine Interventional Cardiology
DX: R00.1 Bradycardia, unspecified (principal); E05.90 Thyrotoxicosis, unspecified without thyrotoxic crisis or storm; I25.10 Atherosclerotic heart disease of native coronary artery without angina pectoris; I11.0 Hypertensive heart disease with heart failure; I48.0 Paroxysmal atrial fibrillation; N28.9 Disorder of kidney and ureter, unspecified; I44.7 Left bundle-branch block, unspecified; I50.32 Chronic diastolic (congestive) heart failure; J44.9 Chronic obstructive pulmonary disease, unspecified; Z79.82 Long term (current) use of aspirin; Z79.01 Long term (current) use of anticoagulants; Z79.899 Other long term (current) drug therapy; Z87.891 Personal history of nicotine dependence; Z86.73 Personal history of transient ischemic attack (TIA), and cerebral infarction without residual deficits
CPT/HCPCS: 33208; 36415; 71010; 71020; 80053; 82962; 83735; 84443; 84484; 85025; 85027; 85610; 93005; 93041; 96360; G0378

== ENCOUNTER 2017-06-22 13:29 | Emergency (ER) | payer MEDICARE, MEDICAID ==
[~2017-06-22] VITALS: Ht 162.6 cm; Wt 59.9 kg
[~2017-06-22 13:29] MED LIST changes: +ALBU18HF2 IH; +CIPR-225 PO; +DILT180C54 PO; +DILT180C64 PO; -DILT180C90 PO
[2017-06-22] MEDS ORDERED: fentaNYL INJECTION 100 MCG/2 ML AMP IVP STA (14:34)
--- NOTE | 2017-06-22 14:34 | ED Chest Pain ---
General Chief Complaint: General Problems/Pain Stated Complaint: PAIN WHERE PACE MAKER PLACED Nursing Triage Note: pain at pacemaker site, placed 06/20/17 Nursing Sepsis Screen: No Definite Risk Source: patient Exam Limitations: no limitations History of Present Illness Time seen by provider: 14:29 Initial Comments Patient presents to ER by private conveyance with a chief complaint of waking up this morning with pain and pressure over her left chest over the site where she had a pacemaker placed 2 days ago. She was put in for bradycardia and by Dr. Nath. Patient has not been wearing her sling very well. When she presented to the ER she was wearing around her neck but her arm was not in it. She was on eloquent some aspirin prior to the surgery and has a hematoma over the side of the pacemaker there is a line drawn around the hematoma proximally from discharge. Patient denies any shortness of breath nausea or sweats or chills fever or diarrhea. She rates the pain at a 4 out of 10 right now. She states this morning she was having pressure and heat over her left chest but also palpitations. She felt like her heart was racing again. She has discontinued the Cardizem per her discharge instructions and picked up the ciprofloxacin and started taking it. Allergies and Home Medications Allergies Coded Allergies: Penicillins (Unverified Allergy, Mild, RASH, 09/24/10) RUPAL Inhibitors (Verified Allergy, Unknown, HIVES, 12/11/16) atorvastatin (Verified Allergy, Unknown, HIVES, 12/11/16) iodine (Verified Allergy, Unknown, HIVES, 12/11/16) Home Medications Albuterol Sulfate 18 Gm Hfa.aer.ad, 2 PUFF IH Q4H PRN for SHORTNESS OF BREATH, ( Reported) Budesonide/Formoterol Fumarate 10.2 Gm Hfa.aer.ad, 2 PUFF INH BID PRN for SHORTNESS OF BREATH, (Reported) LAST FILLED 04/02/17 #1 INHALER Diltiazem HCl 180 Mg Cap.er.24h, 180 MG PO BID, (Reported) Furosemide 20 Mg Tablet, 20 MG PO DAILY, (Reported) Furosemide 20 Mg Tablet, 20 MG PO HS PRN for SWELLING , (Reported) Metoprolol Tartrate 100 Mg Tablet, 100 MG PO BID, (Reported) Potassium Chloride 8 Meq Tablet.er, 8 MEQ PO HS PRN for IF TAKING 2ND DOSE FUROSEMIDE, (Reported) LAST FILLED #30 02-27-17 Tiotropium [place] 4 Gm Mist.inhal, 2 PUFF IH DAILY PRN for SHORTNESS OF BREATH, (Reported) LAST FILLED 04/02/17 #1 INHALER Valsartan 80 Mg Tablet, 80 MG PO BID, (Reported) Review of Systems Constitutional: No chills, No diaphoresis, No fever, No malaise Respiratory: Denies Cough, Denies Shortness of Air Cardiovascular: See HPI, Chest Pain, Denies Edema, Palpitations, Denies Syncope Gastrointestinal: Denies Abdominal Pain, Denies Nausea Genitourinary: Denies Burning, Denies Discharge Musculoskeletal: No back pain, No joint pain Skin: No pruritus, No rash Psychiatric/Neurological: Denies Headache, Denies Numbness Past Lkeatud-Lmtsnl-Qpoxfc Hx Patient Social History Alcohol Use: Denies Use Recreational Drug Use: No Smoking Status: Former Smoker Type Used: Cigarettes Former Smoker/When Quit: Mar 15, 1982 2nd Hand Smoke Exposure: No Recent Foreign Travel: No Contact w/Someone Who Travel: No Recent Infectious Disease Expo: No Recent Hopitalizations: Yes (pacemaker placement) Immunizations Up To Date Tetanus Booster (TDap): Unknown Date of Pneumonia Vaccine: Aug 17, 2013 Date of Influenza Vaccine: Sep 07, 2013 Seasonal Allergies Seasonal Allergies: No Surgeries HX Surgeries: Yes (CARDIAC CATH; RIGHT LUNG RESECTION/TUMOR REMOVAL) Surgeries: Cardiac, Gallbladder, Hysterectomy, Lobectomy, Tonsillectomy Respiratory Hx Respiratory Disorders: Yes (+ 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 Genitourinary Hx Genitourinary Disorders: Yes Genitourinary Disorders: Bladder Infection Gastrointestinal Hx Gastrointestinal Disorders: Yes (S/P SOCORRO) Gastrointestinal Disorders: Gall Bladder Disease Musculoskeletal Hx Musculoskeletal Disorders: No Musculoskeletal Disorders: Arthritis, Chronic Back Pain Endocrine Hx Endocrine Disorders: Yes Endocrine Disorders: Hyperthyroidism HEENT HX ENT Disorders: Yes HEENT Disorders: Cataract Cancer Hx Cancer: Yes Cancer: Lung Psychosocial Hx Psychiatric Problems: Yes Behavioral Health Disorders: Anxiety, Depression Integumentary HX Skin/Integumentary Disorder: No Blood Transfusions Hx Blood Disorders: No Adverse Reaction to a Blood Tr: No Family Medical History Significant Family History: No Pertinent Family Hx Family Medial History: Patient reports no known family medical history. Physical Exam Vital Signs Vital Sign - Last 12Hours 06/22/17 06/22/17 14:00 14:45 Temp 98.0 Pulse 85 Resp 18 B/P (MAP) 164/107 Pulse Ox 98 O2 Delivery Room Air O2 Flow Rate 2.00 Capillary Refill : Less Than 3 Seconds General Appearance: No Apparent Distress, WD/WN HEENT: PERRL/EOMI, Pharynx Normal Neck: Normal Inspection, Supple Respiratory: Lungs Clear, Normal Breath Sounds, Other (tender palpation over the left upper chest where there is a large dressed hematoma with marker outline that still contains the same border.) Cardiovascular: Regular Rate, Rhythm, No No Edema, No Murmur, Normal Peripheral Pulses Gastrointestinal: Normal Bowel Sounds, Non Tender, Soft Extremity: Normal Capillary Refill, Normal Inspection, No Pedal Edema Neurologic/Psychiatric: Alert, Oriented x3 Skin: Normal Color, Warm/Dry Progress/Results/Core Measures Results/Orders Lab Results Laboratory Tests Test 06/22/17 14:43 Range/Units White Blood Count 6.9 4.3-11.0 10^3/uL Red Blood Count 3.19 L 4.35-5.85 10^6/uL Hemoglobin 9.7 L 11.5-16.0 G/DL Hematocrit 29 L 35-52 % Mean Corpuscular Volume 91 80-99 FL Mean Corpuscular Hemoglobin 30 25-34 PG Mean Corpuscular Hemoglobin Concent 33 32-36 G/DL Red Cell Distribution Width 13.5 10.0-14.5 % Platelet Count 271 130-400 10^3/uL Mean Platelet Volume 9.2 7.4-10.4 FL Neutrophils (%) (Auto) 77 H 42-75 % Lymphocytes (%) (Auto) 9 L 12-44 % Monocytes (%) (Auto) 11 0-12 % Eosinophils (%) (Auto) 3 0-10 % Basophils (%) (Auto) 0 0-10 % Neutrophils # (Auto) 5.3 1.8-7.8 X 10^3 Lymphocytes # (Auto) 0.6 L 1.0-4.0 X 10^3 Monocytes # (Auto) 0.7 0.0-1.0 X 10^3 Eosinophils # (Auto) 0.2 0.0-0.3 10^3/uL Basophils # (Auto) 0.0 0.0-0.1 10^3/uL Sodium Level 136 135-145 MMOL/L Potassium Level 3.8 3.6-5.0 MMOL/L Chloride Level 104 98-107 MMOL/L Carbon Dioxide Level 19 L 21-32 MMOL/L Anion Gap 13 5-14 MMOL/L Blood Urea Nitrogen 24 H 7-18 MG/DL Creatinine 1.17 0.60-1.30 MG/DL Estimat Glomerular Filtration Rate 45 BUN/Creatinine Ratio 21 Glucose Level 101 70-105 MG/DL Calcium Level 9.3 8.5-10.1 MG/DL Magnesium Level 1.7 L 1.8-2.4 MG/DL Total Bilirubin 0.5 0.1-1.0 MG/DL Aspartate Amino Transf (AST/SGOT) 17 5-34 U/L Alanine Aminotransferase (ALT/SGPT) 14 0-55 U/L Alkaline Phosphatase 109 40-136 U/L Troponin I < 0.30 <0.30 NG/ML Total Protein 6.8 6.4-8.2 GM/DL Albumin 3.7 3.2-4.5 GM/DL My Orders Orders - VEE CERRATO Cbc With Automated Diff (06/22/17 14:34) Magnesium (06/22/17 14:34) Chest 1 View, Ap/Pa Only (06/22/17 14:34) Ekg Tracing (06/22/17 14:34) Comprehensive Metabolic Panel (06/22/17 14:34) O2 (06/22/17 14:34) Monitor-Rhythm Ecg Trace Only (06/22/17 14:34) Saline Lock/Iv-Start (06/22/17 14:34) Fentanyl Injection (Sublimaze Injection (06/22/17 14:34) Troponin I (06/22/17 15:15) Magnesium Oxide Tablet (Mag Ox Tablet) (06/22/17 16:45) Vital Signs/I&O Vital Sign - Last 12Hours 06/22/17 06/22/17 14:00 14:45 Temp 98.0 Pulse 85 Resp 18 B/P (MAP) 164/107 Pulse Ox 98 94 O2 Delivery Room Air Nasal Cannula O2 Flow Rate 2.00 Blood Pressure Mean: 126 Progress Note : Time: 15:08 Progress Note Patient presents today after discharge with a Tylenol over the site of her pacemaker placement. She may have gone into A. fib with RVR. She is not on her Cardizem anymore however she is still on the metoprolol. She is on her antibiotics appropriately the wound looks okay it is contained it is not draining anything significant and the dressing is dry clean and intact. There is a small possibility that there could be some cardiac strain to get troponins and EKG. ECG Initial ECG Impression Date: Jun 22, 2017 Initial ECG Impression Time: 14:41 Initial ECG Rate: 72 Initial ECG Rhythm: Normal Sinus Initial ECG Intervals: QT (522 ms) Initial ECG Intervals Prolonged QTC Initial ECG Impression: Nonspecific Changes (left bundle branch block) Initial ECG Comparisson: Unchanged Comment No ST-T wave elevation or depression. Diagnostic Imaging Diagonstic Imaging: Xray Plain Films/CT/US/NM/MRI: chest Comments Stable right perihilar atelectasis noted on previous exam. NAME: BILLY FERRARA MED REC#: [id number] PHYSICIAN: VEE CERRATO MD CC: DESIREE PIÑA; VEE CERRATO Page 1 of 1 RADIOLOGY REPORT VIA [facility]. [place], [place] CC: DESIREE PIÑA; VEE CERRATO Page 1 of 1 RADIOLOGY REPORT NAME: BILLY FERRARA MED REC#: [id number] PT STATUS: REG ER : 1940 PHYSICIAN: VEE CERRATO MD ADMIT DATE: 06/22/17/ER Signed Date of Exam: 06/22/17 CHEST 1 VIEW, AP/PA ONLY INDICATION: Pacemaker placement, excision and pain. COMPARISON: 06/20/17. FINDINGS: Single view of the chest demonstrates stable pacemaker. Both leads appear to be in stable position. There is no pneumothorax, effusion or new infiltrate. Heart is prominent without pulmonary edema. IMPRESSION: No acute cardiopulmonary findings. No pneumothorax. Dictated by: Dictated on workstation # [id number] Dict: 06/22/17 1533 Trans: 06/22/17 1542 Interpreted by: DESIREE PIÑA Electronically signed by: DESIREE PIÑA 06/22/17 1542 Reviewed: Reviewed by Me Consults Consults : Consulting Physician: JIM CRUZ MD [facility] Consults Notes I spoke with Dr. Fernandes he recommends that the patient after hearing her labs x- ray and story should continue Cipro continue the Cardizem 180 mg CD daily and continue the metoprolol the dose she was discharged on. He says if the pain is not well controlled Tylenol then he would recommend some hydrocodone. Ice pack. Follow-up at her scheduled appointment on Saturday. Departure Impression Impression: Primary Impression: Chest pain Qualified Codes: R07.89 - Other chest pain Additional Impressions: Heart palpitations Hematoma Disposition: HOME, SELF-CARE Condition: Stable Departure-Patient Inst. Decision time for Depature: 16:52 Referrals: NO,LOCAL PHYSICIAN (PCP/Family) Primary Care Physician Patient Instructions: HEMATOMA Add. Discharge Instructions: If you're having pain over the swelling in your left chest you can apply an ice pack up to 4 times a day for 20 minutes. You can also take Tylenol 1000 mg every 8 hours. If this is not working for you then We'll send you a prescription for hydrocodone to be taken once every 6 hours as needed to control your pain. Hydrocodone can cause drowsiness as well as constipation. You should take MiraLAX daily to control the constipation. Do not operate heavy machinery or driving long distances while under the influence of hydrocodone. Follow-up at your prescheduled appointment Saturday with Dr. Cruz. Continue taking the metoprolol at the dose your prescribed. Resume taking the Cardizem CD 180 mg daily. All discharge instructions reviewed with patient and/or family. Voiced understanding. Scripts Hydrocodone/Acetaminophen (Hydrocodon -Acetaminophen 5-325) 1 Each Tablet 1 EACH PO Q6H Y for BREAKTHROUGH PAIN for 14 Days, #15 TAB 0 Refills Prov: VEE CERRATO 06/22/17 Copy Copies To 1: JIM CRUZ MD [facility] VEE CERRATO Jun 22, 2017 14:34
[2017-06-22 14:52] LABS: BASOPHILS % (AUTO) 0 % (0-10); EOSINOPHILS # (AUTO) 0.2 10^3/uL (0.0-0.3); EOSINOPHILS % (AUTO) 3 % (0-10); LYMPHOCYTES # (AUTO) 0.6 X 10^3 (1.0-4.0); LYMPHOCYTES % (AUTO) 9 % (12-44); MEAN CORPUSCULAR HEMOGLOBIN 30 PG (25-34); MEAN CORPUSCULAR HGB CONC 33 G/DL (32-36); MEAN CORPUSCULAR VOLUME 91 FL (80-99); MEAN PLATELET VOLUME 9.2 FL (7.4-10.4); MONOCYTES # (AUTO) 0.7 X 10^3 (0.0-1.0); MONOCYTES % (AUTO) 11 % (0-12); NEUTROPHILS # (AUTO) 5.3 X 10^3 (1.8-7.8); NEUTROPHILS % (AUTO) 77 % (42-75); PLATELET COUNT 271 10^3/uL (130-400); RED BLOOD COUNT 3.19 10^6/uL (4.35-5.85); RED CELL DISTRIBUTION WIDTH 13.5 % (10.0-14.5); WHITE BLOOD COUNT 6.9 10^3/uL (4.3-11.0)
[2017-06-22 15:11] LABS: ALBUMIN 3.7 GM/DL (3.2-4.5); BILIRUBIN,TOTAL 0.5 MG/DL (0.1-1.0); CALCIUM 9.3 MG/DL (8.5-10.1); CREATININE SERUM 1.17 MG/DL (0.60-1.30); MAGNESIUM 1.7 MG/DL (1.8-2.4); POTASSIUM 3.8 MMOL/L (3.6-5.0); TOTAL PROTEIN 6.8 GM/DL (6.4-8.2)
--- NOTE | 2017-06-22 15:39 | Diagnostic Imaging Report ---
INDICATION: Pacemaker placement, excision and pain. COMPARISON: 06/20/17. FINDINGS: Single view of the chest demonstrates stable pacemaker. Both leads appear to be in stable position. There is no pneumothorax, effusion or new infiltrate. Heart is prominent without pulmonary edema. IMPRESSION: No acute cardiopulmonary findings. No pneumothorax. Dictated by: Dictated on workstation # [id number]
[2017-06-22] MEDS ORDERED: MAGNESIUM OXIDE (MAG-OX)400 MG TAB PO ONE (16:45)
[2017-06-22] MEDS ORDERED: HYDR-3812 PO (16:54)
[2017-06-22 17:00] VITALS: BP 123/72
== END 2017-06-22 16:59 | disposition home or self-care (01) ==
LOC: EDUNIT# 13:29 → ER 13:30
DX: R07.89 Other chest pain (principal); R00.2 Palpitations; M79.81 Nontraumatic hematoma of soft tissue; J43.9 Emphysema, unspecified; I48.91 Unspecified atrial fibrillation; I25.10 Atherosclerotic heart disease of native coronary artery without angina pectoris; I11.0 Hypertensive heart disease with heart failure; I50.9 Heart failure, unspecified; M19.90 Unspecified osteoarthritis, unspecified site; F41.9 Anxiety disorder, unspecified; F32.9 Major depressive disorder, single episode, unspecified; Z86.73 Personal history of transient ischemic attack (TIA), and cerebral infarction without residual deficits; Z95.0 Presence of cardiac pacemaker; Z87.891 Personal history of nicotine dependence; Z90.710 Acquired absence of both cervix and uterus; Z85.118 Personal history of other malignant neoplasm of bronchus and lung
CPT/HCPCS: 36415; 71010; 80053; 83735; 84484; 85025; 93041

== ENCOUNTER 2017-07-01 08:06 | Outpatient (RCR) | payer MEDICARE, MEDICAID | END 2017-08-24 | disposition home or self-care (01) | LOC: CARD 08:06 | PROVIDERS: ATTEND Internal Medicine Interventional Cardiology | DX: I48.0 Paroxysmal atrial fibrillation (principal); R00.1 Bradycardia, unspecified | CPT/HCPCS: 93270 ==

== ENCOUNTER → 2017-12-05 | Outpatient (CLI) | payer MEDICARE, MEDICAID ==
[~2017-12-05] MED LIST changes: +ACHD5005 PO; -DILT180C64 PO; +DILT180C90 PO; -HYDR-3812 PO; +METO100T12 PO; -METO100T2 PO; +METO50TA15 PO; -METO50TA2 PO
[2017-12-05 16:31] LABS: FREE T4 (FREE THYROXINE) 1.17 NG/DL (0.70-1.48)
== END ==
LOC: LAB 15:22
PROVIDERS: ATTEND Internal Medicine Endocrinology, Diabetes & Metabolism
DX: E04.2 Nontoxic multinodular goiter (principal)
CPT/HCPCS: 36415; 84439; 84443; 84480

== ENCOUNTER 2018-04-23 14:32 | Outpatient (RCR) | payer MEDICARE, MEDICAID | END 2018-04-23 15:09 | disposition home or self-care (01) | PROVIDERS: ATTEND Internal Medicine Hematology & Oncology | DX: M54.5 Low back pain (principal); G89.29 Other chronic pain ==

== ENCOUNTER → 2018-12-08 | Outpatient (CLI) | payer MEDICAID, MEDICARE ==
[~2018-12-08] MED LIST changes: -VALS80TA30 PO; +VALS80TA31 PO
== END ==
LOC: CARD 12:02
PROVIDERS: ATTEND Nurse Practitioner Family
DX: I27.20 Pulmonary hypertension, unspecified (principal); R06.09 Other forms of dyspnea; I34.0 Nonrheumatic mitral (valve) insufficiency
CPT/HCPCS: 93306

== ENCOUNTER 2019-06-07 01:19 | Inpatient (IN) | payer MEDICARE ==
[~2019-06-07] VITALS: Ht 162.6 cm; Wt 53.3 kg
[2019-06-07] VITALS (9 sets, daily range): BP systolic 113–185; BP diastolic 61–143
[2019-06-07] MEDS ORDERED: NS IV 1000 ML 1,000 ML IV SCH ×2 (01:39→05:45)
[2019-06-07] MEDS ORDERED: ASPIRIN 81 MG CHEW (CHILDREN'S ASA) PO ONE (01:45)
--- NOTE | 2019-06-07 01:49 | ED Cardiac General ---
History of Present Illness General Stated Complaint: BLOOD PRESSURE CONCERNS Source: patient Exam Limitations: no limitations History of Present Illness Date Seen by Provider: Jun 07, 2019 Time Seen by Provider: 01:30 Initial Comments For the past 2-3 hours patient's been having some palpitations and fluttering in her chest. She said she also gets lightheaded when she exerts herself inserts to get some dull chest pain in the center of the chest that does not radiate. She does not have a history of heart attack but she does have a history of heart failure and atrial fibrillation for which she takes Eliquis. She is known to Dr. Cruz and she thinks to Dr. Raciel Krueger. She used to be with [facility] in [place] but she stopped seeing them. She still sees an oncologist in [place] for lung cancer with metastases to lymph nodes and bone. She is on chemotherapy. She quit smoking in the . She's not having any chest pain at present at rest. She says she is also known to be anemic and is taking medications from her oncologist to improve her hemoglobin. She uses Lasix. She has a history of a pacemaker, stroke with resultant right leg weakness and ataxia 2016, atrial fibrillation on Eliquis. History of compensated diastolic heart failure. 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 Mccord at [facility]. Hypertension. Allergies and Home Medications Allergies Coded Allergies: Penicillins (Unverified Allergy, Mild, RASH, 09/24/10) RUPAL Inhibitors (Verified Allergy, Unknown, HIVES, 12/11/16) atorvastatin (Verified Allergy, Unknown, HIVES, 12/11/16) iodine (Verified Allergy, Unknown, HIVES, 12/11/16) Home Medications Albuterol Sulfate 18 Gm Hfa.aer.ad, 2 PUFF IH Q4H PRN for SHORTNESS OF BREATH, (Reported) Budesonide/Formoterol Fumarate 10.2 Gm Hfa.aer.ad, 2 PUFF INH BID PRN for SHORTNESS OF BREATH, (Reported) LAST FILLED 04/02/17 #1 INHALER Diltiazem HCl 180 Mg Cap.er.24h, 180 MG PO BID, (Reported) Furosemide 20 Mg Tablet, 20 MG PO DAILY, (Reported) Furosemide 20 Mg Tablet, 20 MG PO HS PRN for SWELLING , (Reported) Hydrocodone Bit/Acetaminophen 1 Each Tablet, 1 EACH PO Q6H PRN for BREAKTHROUGH PAIN Prescribed by: VEE CERRATO on 06/22/17 9644 Metoprolol Tartrate 100 Mg Tablet, 100 MG PO BID, (Reported) Potassium Chloride 8 Meq Tablet.er, 8 MEQ PO HS PRN for IF TAKING 2ND DOSE FUROSEMIDE, (Reported) LAST FILLED #30 02-27-17 Tiotropium [place] 4 Gm Mist.inhal, 2 PUFF IH DAILY PRN for SHORTNESS OF BREATH, (Reported) LAST FILLED 04/02/17 #1 INHALER Valsartan 80 Mg Tablet, 80 MG PO BID, (Reported) Patient Home Medication List Home Medication List Reviewed: Yes Review of Systems Review of Systems Constitutional: No chills, No fever, No malaise EENTM: No Blurred Vision, No Double Vision Respiratory: Denies Cough, Denies Shortness of Air Cardiovascular: See HPI, Chest Pain (exertional); Denies Edema; Irregular Heart Rate, Lightheadedness, Palpitations; Denies Syncope Gastrointestinal: Denies Constipated, Denies Diarrhea, Denies Nausea Genitourinary: Denies Burning, Denies Discharge Musculoskeletal: No back pain, No joint pain Skin: No pruritus, No rash Psychiatric/Neurological: Denies Headache, Denies Numbness Past Szephiw-Mmxkqg-Ivbjuh Hx Patient Social History Alcohol Use: Denies Use Recreational Drug Use: No Smoking Status: Former Smoker Type Used: Cigarettes Former Smoker, Quit: Jul 09, 1982 2nd Hand Smoke Exposure: No Recent Foreign Travel: No Contact w/Someone Who Travel: No Recent Hopitalizations: Yes (pacemaker placement) Immunizations Up To Date Tetanus Booster (TDap): Unknown Date of Pneumonia Vaccine: Aug 17, 2013 Date of Influenza Vaccine: Sep 07, 2013 Seasonal Allergies Seasonal Allergies: No Past Medical History Surgeries: Yes (CARDIAC CATH; RIGHT LUNG RESECTION/TUMOR REMOVAL, placemaker) Cardiac, Gallbladder, Hysterectomy, Lobectomy, Tonsillectomy Respiratory: Yes (+ 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 No Pertinent Family Hx Mother: 95yo alive and well, sister 71yo alive and well Physical Exam Vital Signs Vital Signs - First Documented 06/07/19 01:28 Temp 97.9 Pulse 100 Resp 20 B/P (MAP) 163/83 (109) Pulse Ox 95 O2 Delivery Room Air Capillary Refill : Height, Weight, BMI Height: 5'4.00" Weight: 132lbs. 0.0oz. 59.863743dc; 23.9 BMI Method:Stated General Appearance: No Apparent Distress, WD/WN HEENT: PERRL/EOMI, Normal ENT Inspection, Pharynx Normal, Moist Mucous Membranes Neck: Full Range of Motion, Normal Inspection Respiratory: Chest Non Tender, Lungs Clear, Normal Breath Sounds, No Accessory Muscle Use, No Respiratory Distress Cardiovascular: No Edema, No Murmur, Normal Peripheral Pulses, Irregularly Irregular Gastrointestinal: Normal Bowel Sounds, Non Tender, Soft Neurologic/Psychiatric: Alert, Oriented x3, No Motor/Sensory Deficits Skin: Normal Color, Warm/Dry Progress/Results/Core Measures Results/Orders Lab Results Laboratory Tests Test 06/07/19 01:50 Range/Units White Blood Count 9.0 4.3-11.0 10^3/uL Red Blood Count 3.52 L 4.35-5.85 10^6/uL Hemoglobin 9.7 L 11.5-16.0 G/DL Hematocrit 31 L 35-52 % Mean Corpuscular Volume 88 80-99 FL Mean Corpuscular Hemoglobin 28 25-34 PG Mean Corpuscular Hemoglobin Concent 31 L 32-36 G/DL Red Cell Distribution Width 17.7 H 10.0-14.5 % Platelet Count 571 H 130-400 10^3/uL Mean Platelet Volume 8.6 7.4-10.4 FL Neutrophils (%) (Auto) 84 H 42-75 % Lymphocytes (%) (Auto) 8 L 12-44 % Monocytes (%) (Auto) 7 0-12 % Eosinophils (%) (Auto) 1 0-10 % Basophils (%) (Auto) 0 0-10 % Neutrophils # (Auto) 7.6 1.8-7.8 X 10^3 Lymphocytes # (Auto) 0.7 L 1.0-4.0 X 10^3 Monocytes # (Auto) 0.6 0.0-1.0 X 10^3 Eosinophils # (Auto) 0.1 0.0-0.3 10^3/uL Basophils # (Auto) 0.0 0.0-0.1 10^3/uL Prothrombin Time 16.5 H 12.2-14.7 SEC INR Comment 1.3 0.8-1.4 Activated Partial Thromboplast Time 40 H 24-35 SEC D-Dimer 0.71 H 0.00-0.49 UG/ML Sodium Level 137 135-145 MMOL/L Potassium Level 3.6 3.6-5.0 MMOL/L Chloride Level 102 98-107 MMOL/L Carbon Dioxide Level 20 L 21-32 MMOL/L Anion Gap 15 H 5-14 MMOL/L Blood Urea Nitrogen 27 H 7-18 MG/DL Creatinine 1.35 H 0.60-1.30 MG/DL Estimat Glomerular Filtration Rate 38 BUN/Creatinine Ratio 20 Glucose Level 151 H 70-105 MG/DL Calcium Level 9.0 8.5-10.1 MG/DL Corrected Calcium 9.0 8.5-10.1 MG/DL Magnesium Level 2.2 1.8-2.4 MG/DL Total Bilirubin 0.2 0.1-1.0 MG/DL Aspartate Amino Transf (AST/SGOT) 13 5-34 U/L Alanine Aminotransferase (ALT/SGPT) 14 0-55 U/L Alkaline Phosphatase 150 H 40-136 U/L Myoglobin 53.8 10.0-92.0 NG/ML Troponin I 0.028 <0.028 NG/ML B-Type Natriuretic Peptide 79.1 <100.0 PG/ML Total Protein 7.5 6.4-8.2 GM/DL Albumin 4.0 3.2-4.5 GM/DL My Orders Orders - VEE CERRATO Cbc With Automated Diff (06/07/19 01:39) Magnesium (06/07/19 01:39) Chest 1 View, Ap/Pa Only (06/07/19 01:39) Ekg Tracing (06/07/19 01:39) Cardiac Profile 1 (06/07/19 01:39) Comprehensive Metabolic Panel (06/07/19 01:39) Myoglobin Serum (06/07/19 01:39) Protime With Inr (06/07/19 01:39) Partial Thromboplastin Time (06/07/19 01:39) O2 (06/07/19 01:39) Monitor-Rhythm Ecg Trace Only (06/07/19 01:39) Lipid Panel (06/08/19 06:00) Ed Iv/Invasive Line Start (06/07/19 01:39) BNP (06/07/19 01:39) Fibrin Degradation Products (06/07/19 01:39) Aspirin Chewable Tablet (Baby Aspirin Ch (06/07/19 01:45) Ed Iv/Invasive Line Start (06/07/19 01:39) Ns Iv 1000 Ml (Sodium Chloride 0.9%) (06/07/19 01:39) Ua Culture If Indicated (06/07/19 01:55) Ns (Ivpb) (Sodium C... W/Diltiazem Iv Fo (06/07/19 02:00) Diltiazem Iv For Drip (Cardizem Iv For D (06/07/19 01:50) Ns (Ivpb) (Sodium Chloride 0.9% Ivpb Bag (06/07/19 01:51) Medications Given in ED Current Medications Medications Dose Ordered Sig/Ayan Route Start Time Stop Time Status Last Admin Dose Admin Aspirin 324 mg ONCE ONCE PO 06/07/19 01:45 06/07/19 01:46 DC 06/07/19 01:59 324 MG Sodium Chloride 100 ml @ STK-MED ONCE .ROUTE 06/07/19 01:51 06/07/19 01:57 DC 06/07/19 02:15 0 MLS/HR Vital Signs/I&O 06/07/19 06/07/19 06/07/19 01:28 01:32 02:10 Temp 97.9 Pulse 100 89 Resp 20 22 B/P (MAP) 163/83 (109) 142/80 Pulse Ox 95 98 O2 Delivery Room Air Room Air Progress Progress Note #1: Time: 01:46 Progress Note She appears to be in A. fib with rapid ventricular response with some exertional chest pain with some suggestion of demand ischemia on the EKG. She has some ST depression between 1 and 1.5 blocks in the inferior leads. Plan to give her some IV fluids. Echocardiogram November [address] Cruz: Concentric hypertrophy and mildly increased wall thickness. Cavity size is normal. Systolic EF is 55-60%. Progress Note #2: Time: 03:43 Progress Note The patient's chest x-ray does seem to have more prominent from infiltrate surrounding the lung mass with the patient is not having a cough or fever. Suspect that this is not guest services representative of an active pneumonia. Initial ECG Impression Date: Jun 07, 2019 Initial ECG Impression Time: 01:40 Initial ECG Rate: 115 Initial ECG Rhythm: A Fib/Flutter Initial ECG Intervals: QT (526) Initial ECG Impression: Nonspecific Changes, Atrial Fibrillation w/RVR Initial ECG Comparisson: Unchanged Comment 1 block depression inferiorly however could be due to rapid rate. Left bundle branch block stable. A. fib with rapid ventricular response. Diagnostic Imaging Diagonstic Imaging: Xray Plain Films/CT/US/NM/MRI: chest (1v) Comments Stable lung mass right lung Reviewed: Reviewed by Me Departure Communication (Admissions) Time/Spoke to Admitting Phy: 03:40 Discussed case lab EKG imaging with Dr. Hernandez and he agrees to [facility] Time/Spoke to Consulting Phy: 02:30 Discussed the case with Dr. Rdz and he agrees to consult on the patient. Impression Primary Impression: Chronic atrial fibrillation with RVR Additional Impressions: Exertional chest pain History of lung cancer in adulthood UTI (urinary tract infection) Qualified Codes: N30.00 - Acute cystitis without hematuria Disposition: ADMITTED INPATIENT Condition: Stable Admissions Decision to Admit Reason: Admit from ER (General) Decision to Admit/Date: Jun 07, 2019 Time/Decision to Admit Time: 03:00 Departure-Patient Inst. Referrals: RACIEL KRUEGER MD Primary Care Physician VEE CERRATO Jun 07, 2019 01:49
[2019-06-07] MEDS ORDERED: DILTIAZEM 125 MG/25 ML IV (CARDIZEM) IV ONE (01:50)
[2019-06-07] MEDS ORDERED: NS (IVPB) 100 ML ONE (01:51)
[2019-06-07 01:58] LABS: BASOPHILS % (AUTO) 0 % (0-10); EOSINOPHILS # (AUTO) 0.1 10^3/uL (0.0-0.3); EOSINOPHILS % (AUTO) 1 % (0-10); HEMATOCRIT 31 % (35-52); HEMOGLOBIN 9.7 G/DL (11.5-16.0); LYMPHOCYTES # (AUTO) 0.7 X 10^3 (1.0-4.0); LYMPHOCYTES % (AUTO) 8 % (12-44); MEAN CORPUSCULAR HEMOGLOBIN 28 PG (25-34); MEAN CORPUSCULAR HGB CONC 31 G/DL (32-36); MEAN CORPUSCULAR VOLUME 88 FL (80-99); MEAN PLATELET VOLUME 8.6 FL (7.4-10.4); MONOCYTES # (AUTO) 0.6 X 10^3 (0.0-1.0); MONOCYTES % (AUTO) 7 % (0-12); NEUTROPHILS # (AUTO) 7.6 X 10^3 (1.8-7.8); NEUTROPHILS % (AUTO) 84 % (42-75); PLATELET COUNT 571 10^3/uL (130-400); RED CELL DISTRIBUTION WIDTH 17.7 % (10.0-14.5)
[2019-06-07] MEDS ORDERED: DILTIAZEM IV FOR DRIP 125 MG in NS (IVPB) 100 ML IV SCH (02:00)
[2019-06-07 02:10] LABS: INR 1.3 (0.8-1.4); PROTHROMBIN TIME PATIENT 16.5 SEC (12.2-14.7)
[2019-06-07 02:19] LABS: BILIRUBIN,TOTAL 0.2 MG/DL (0.1-1.0); CREATININE SERUM 1.35 MG/DL (0.60-1.30); MAGNESIUM 2.2 MG/DL (1.8-2.4); POTASSIUM 3.6 MMOL/L (3.6-5.0); TOTAL PROTEIN 7.5 GM/DL (6.4-8.2)
[2019-06-07 03:51] LABS: BILIRUBIN,URINE NEGATIVE (NEGATIVE); CLARITY,URINE CLEAR; COLOR,URINE YELLOW; GLUCOSE, URINE (UA) NEGATIVE (NEGATIVE); KETONES,URINE NEGATIVE (NEGATIVE); LEUKOCYTE ESTERASE ,URINE 2+ (NEGATIVE); NITRITE,URINE NEGATIVE (NEGATIVE); PH,URINE 5 (5-9); PROTEIN,URINE 2+ (NEGATIVE); UROBILINOGEN,URINE NORMAL (NORMAL)
[2019-06-07 04:04] LABS: BACTERIA,URINE FEW /HPF
[2019-06-07] MEDS ORDERED: cefTRIAXone FOR IV USE 1,000 MG in WATER (STERILE) FOR INJECTION 10 ML IV ONE (04:15)
--- NOTE | 2019-06-07 04:25 | NUR ---
CAALLED FLOOR TO GIVE REPORT, NURSE NOT ASSIGNED TO PT AT THIS TIME, ICU STAFF STATE THEY WILL CALL BACK WHEN A NURSE IS READY TO REPORT
[2019-06-07] MEDS ORDERED: morphine INJ 4 MG/ML 1 ML (VIAL/SYRINGE) IV PRN (05:45)
[2019-06-07] MEDS ORDERED: ACETAMINOPHEN 500 MG TAB (TYLENOL) PO PRN (05:45)
[2019-06-07] MEDS ORDERED: ONDANSETRON 4 MG/2 ML (SDV) Z0FRAN IV PRN (05:45)
--- NOTE | 2019-06-07 05:54 | NUR ---
BILLY FERRARA admitted to room CU1-1, with an admitting diagnosis of CP r/o ACS,Afib with rvr, dehydration,UTI, on 06/07/19 from ED via stretcher, accompanied by .BILLY FERRARA introduced to surroundings, call light, bed controls, phone, TV, temperature control, lights, meal times, smoking policy, visitor policy, side rail policy, bathrooms and showers. Patient Rights given to patient in the handbook. BILLY FERRARA verbalizes understanding that [facility] is not responsible for the loss or damage to any personal effects or valuables that are kept in the patients possession during their hospitalization. The following Patient Care Plans were discussed with the patient: Discharge Planning. BILLY FERRARA verbalizes understanding of Interdisciplinary Patient Education. Patient and/or family were informed about the Rapid Response Team and its purpose.
[2019-06-07] MEDS ORDERED: MAGNESIUM 1 GM/100 ML IVPB 100 ML IV SCH (06:00)
[2019-06-07] MEDS ORDERED: KCL 20 MEQ TAB (K-DUR) PO SCH (06:00)
[2019-06-07] MEDS ORDERED: POTASSIUM CL 10MEQ/50ML IVPB 50 ML IV SCH (06:00)
--- NOTE | 2019-06-07 06:37 | Pulmonary Consultation ---
History of Present Illness History of Present Illness Date of Consultation 06/07/19 06:32 Time Seen by Provider: 06:33 Date of Admission History of Present Illness 78yo with hx of lung cancer with mets undergoing chemo (wedge resection 5yrs ago) , CAD, CHF, and AFib presented to ED secondary to palpitations, lightheadedness, dull nonradiating CP. She found to have Afib RVR and was placed on a cardizem gtt. She quit smoking in the . Allergies and Home Medications Allergies Coded Allergies: Penicillins (Unverified Allergy, Mild, RASH, 09/24/10) RUPAL Inhibitors (Verified Allergy, Unknown, HIVES, 12/11/16) atorvastatin (Verified Allergy, Unknown, HIVES, 12/11/16) iodine (Verified Allergy, Unknown, HIVES, 12/11/16) Home Medications Albuterol Sulfate 18 Gm Hfa.aer.ad, 2 PUFF IH Q4H PRN for SHORTNESS OF BREATH, (Reported) Apixaban 2.5 Mg Tablet, 2.5 MG PO BID Prescribed by: LICHA ANDERSON on 06/07/19 1236 Budesonide/Formoterol Fumarate 10.2 Gm Hfa.aer.ad, 2 PUFF INH BID PRN for SHORTNESS OF BREATH, (Reported) LAST FILLED 04/02/17 #1 INHALER Diltiazem HCl 180 Mg Cap.er.24h, 180 MG PO BID, (Reported) Furosemide 20 Mg Tablet, 20 MG PO DAILY, (Reported) Furosemide 20 Mg Tablet, 20 MG PO HS PRN for SWELLING , (Reported) Hydrocodone Bit/Acetaminophen 1 Each Tablet, 1 EACH PO Q6H PRN for BREAKTHROUGH PAIN Prescribed by: VEE CERRATO on 06/22/17 1654 Metoprolol Tartrate 100 Mg Tablet, 100 MG PO BID, (Reported) Potassium Chloride 8 Meq Tablet.er, 8 MEQ PO HS PRN for IF TAKING 2ND DOSE FUROSEMIDE, (Reported) LAST FILLED #30 02-27-17 Tiotropium [place] 4 Gm Mist.inhal, 2 PUFF IH DAILY PRN for SHORTNESS OF BREATH, (Reported) LAST FILLED 04/02/17 #1 INHALER Valsartan 80 Mg Tablet, 80 MG PO BID, (Reported) Past Xkiisvi-Xwpluf-Qefvfi Hx Patient Social History Alcohol Use: Denies Use Recreational Drug Use: No Smoking Status: Former Smoker Type Used: Cigarettes Former Smoker, Quit: Jul 09, 1982 2nd Hand Smoke Exposure: No Recent Foreign Travel: No Contact w/Someone Who Travel: No Recent Infectious Disease Expo: No Recent Hopitalizations: Yes (pacemaker placement) Immunizations Up To Date Tetanus Booster (TDap): Unknown PED Vaccines UTD: Yes Date of Pneumonia Vaccine: Aug 17, 2013 Date of Influenza Vaccine: Sep 07, 2013 Seasonal Allergies Seasonal Allergies: No Past Medical History Surgeries: Yes (CARDIAC CATH; RIGHT LUNG RESECTION/TUMOR REMOVAL, placemaker) Cardiac, Gallbladder, Hysterectomy, Lobectomy, Tonsillectomy Respiratory: Yes (+ 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 No Pertinent Family Hx Mother: 95yo alive and well, sister 71yo alive and well Review of Systems Time Seen by Provider: 09:47 Sepsis Event Evaluation Height, Weight, BMI Height: 5'4.00" Weight: 117lbs. 8.0oz. 53.884305ao; 20.2 BMI Method:Stated Exam Exam Vital Signs Date Time Temp Pulse Resp B/P (MAP) Pulse Ox O2 Delivery O2 Flow Rate FiO2 06/07/19 06:00 86 16 165/143 (150) 98 Room Air 06/07/19 05:48 99 Room Air 06/07/19 05:30 98.4 102 19 185/95 (125) 99 Room Air 06/07/19 05:12 97.9 92 22 141/64 (89) 98 Room Air 06/07/19 02:10 89 22 142/80 06/07/19 01:32 98 Room Air 06/07/19 01:28 97.9 100 20 163/83 (109) 95 Room Air I & O 06/07/19 07:00 Intake Total 1130 ml Balance 1130 ml Height & Weight Height: 5'4.00" Weight: 117lbs. 8.0oz. 53.538895ji; 20.2 BMI Method:Stated General Appearance: No Apparent Distress, WD/WN HEENT: PERRL/EOMI, Normal ENT Inspection, Pharynx Normal, Moist Mucous Membranes Neck: Full Range of Motion, Normal Inspection Respiratory: Chest Non Tender, Lungs Clear, Normal Breath Sounds, No Accessory Muscle Use, No Respiratory Distress Cardiovascular: No Edema, No Murmur, Normal Peripheral Pulses, Irregularly Irregular Capillary Refill: Less Than 3 Seconds Neurologic/Psychiatric: Alert, Oriented x3, No Motor/Sensory Deficits Skin: Normal Color, Warm/Dry Results Lab Laboratory Tests 06/07/19 01:50 Assessment/Plan Assessment/Plan Afib rvr -Cardizem gtt \\ Metabolic acidosis -Check LA -IVF NS 100cc/hr CP - now resolved -Cardiology following Lung cancer with mets hx of wedge resection -Currently undergoing chemo Acute renal failure -Monitor HTN -Monitor anemia -Monitor dehydration DAVION ZAMORA DO Jun 07, 2019 06:37
--- NOTE | 2019-06-07 07:48 | Diagnostic Imaging Report ---
INDICATION: Hypertension, blood pressure issues. TECHNIQUE: Single view chest 2:40 AM. CORRELATION STUDY: 06/22/2017 FINDINGS: Left-sided dual-chamber pacemaker is unchanged. Heart size, mediastinum and vasculature overall stable. Abnormal parenchymal density the right lung base is present, adversely changed from prior study. This is superimposed over apparent suture line. IMPRESSION: 1. New area of consolidation about the right mid to lower lung palacios, superimposed over an apparent suture line. This may very well reflect a consolidating pneumonia. However, followup imaging until complete resolution is recommended to exclude underlying mass lesion. Report given to patient's nurse (Heather) at 7:57 a.m. 06/07/2019/cb Dictated by: Dictated on workstation # [id number]
[2019-06-07] MEDS ORDERED: UMECLIDINIUM BROMIDE (INCRUSE ELLIPTA) 7'S IH SCH (08:00)
[2019-06-07] MEDS ORDERED: VALSARTAN 80 MG (DIOVAN) TAB PO SCH (09:00)
[2019-06-07] MEDS ORDERED: meTOprolol TARTRATE 50 MG (LOPRESSOR) TAB PO SCH (09:00)
[2019-06-07] MEDS ORDERED: ASPIRIN E.C. 81 MG (ECOTRIN) TAB PO SCH (09:00)
[2019-06-07] MEDS ORDERED: APIXABAN 2.5 MG (ELIQUIS) TABLET PO NR (09:24)
[2019-06-07] MEDS ORDERED: DILTIAZEM 180 MG (CARDIZEM CD) CAP PO NR (09:32)
--- NOTE | 2019-06-07 11:55 | Short Stay Summary-Hospitalist ---
History of Present Illness HPI/Chief Complaint Patient reports her roughly the last 48 hours she has had intermittent fluttering sensations in her chest. It is worse with activity and she reports history of paroxysmal fibrillation for which she has been seeing Dr. Cruz. She is also finished 4 cycles of chemotherapy for non-small cell lung cancer reporting lymph node in bone metastasis. On her home blood pressure cuff she was unable to obtain a blood pressure so she went to [facility] did not read a blood pressure there either so she reports she came to the emergency room just to try to get an accurate blood pressure reading over concerns of her inte rmittent fluttering. She denies sick appear presyncope with questionable chest discomfort with the fluttering sensation. She was unable to really tell me anything about her heart rate. She takes Eliquis but is only been doing so 5 mg in the morning due to increased bruising intermittent what sounds like low volume epistaxis and occasional bright red blood per rectum. She is due for another chemotherapy session this Saturday. She denies problems with cough night sweats chills or fever. Date Seen 06/07/19 Time Seen by a Provider: 08:00 Attending Physician Licha Hernandez MD PCP Eduardo Mejía MD Referring Physician Date of Admission Jun 07, 2019 at 02:20 Home Medications & Allergies Home Medications Reviewed patient Home Medication Reconciliation performed by pharmacy medication reconciliations electrical instrument technician and/or nursing. Patients Allergies have been reviewed. Allergies Allergies Coded Allergies Penicillins (Unverified Allergy, Mild, RASH, 09/24/10) RUPAL Inhibitors (Verified Allergy, Unknown, HIVES, 12/11/16) atorvastatin (Verified Allergy, Unknown, HIVES, 12/11/16) iodine (Verified Allergy, Unknown, HIVES, 12/11/16) Past Mmnnvfj-Mwapbu-Sdcspn Hx Past Med/Social Hx: Reviewed and Corrections made Patient Social History Alcohol Use: Denies Use Recreational Drug Use: No Smoking Status: Former Smoker Former Smoker, Quit: Jul 09, 1982 Type Used: Cigarettes 2nd Hand Smoke Exposure: No Recent Foreign Travel: No Contact w/other who traveled: No Recent Hopitalizations: Yes (pacemaker placement) Recent Infectious Disease Expo: No Immunizations Up To Date Tetanus Booster (TDap): Unknown Pediatric: Yes Date of Pneumonia Vaccine: Aug 17, 2013 Date of Influenza Vaccine: Sep 07, 2013 Seasonal Allergies Seasonal Allergies: No Past Medical History Surgeries: Cardiac, Gallbladder, Hysterectomy, Lobectomy, Tonsillectomy Currently Using CPAP: No Currently Using BIPAP: No Cardiac: Atrial Fibrillation, Coronary Artery Disease, Hypertension, Palpitations Neurological: TIA : No Reproductive: No Sexually Transmitted Disease: No HIV/AIDS: No Menopausal Genitourinary: Bladder Infection Gastrointestinal: Gall Bladder Disease Musculoskeletal: Arthritis, Chronic Back Pain Endocrine: Hyperthyroidism HEENT: Cataract Cancer: Lung What Type of Treatment Did You: Radiation, Surgical Intervention Psychosocial: Anxiety, Depression History of Blood Disorders: No Adverse Reaction to Blood Chamberlain: No Family History Patient reports no known family medical history. No Pertinent Family Hx Mother: 95yo alive and well, sister 71yo alive and well Review of Systems Constitutional: see HPI, weakness Respiratory: see HPI; No cough; dyspnea on exertion; No hemoptysis, No orthopnea, No phlegm, No short of breath, No stridor, No wheezing Cardiovascular: see HPI Physical Exam Physical Exam Vital Signs Vital Signs - First Documented 06/07/19 01:28 Temp 97.9 Pulse 100 Resp 20 B/P (MAP) 163/83 (109) Pulse Ox 95 O2 Delivery Room Air Capillary Refill : Less Than 3 Seconds Height, Weight, BMI Height: 5'4.00" Weight: 117lbs. 8.0oz. 53.178580ia; 20.2 BMI Method:Stated General Appearance: No Apparent Distress, WD/WN HEENT: PERRL/EOMI, Normal ENT Inspection, Pharynx Normal, Moist Mucous Membranes Neck: Full Range of Motion, Normal Inspection Respiratory: Chest Non Tender, Normal Breath Sounds, No Accessory Muscle Use, No Respiratory Distress, Other (Diminished breath sounds over right mid lung field with few rales) Cardiovascular: No Edema, No Murmur, Normal Peripheral Pulses, Irregularly Irregular Gastrointestinal: Normal Bowel Sounds, No Organomegaly, Non Tender, Soft Extremity: Non Tender, No Calf Tenderness, No Pedal Edema Neurologic/Psychiatric: Alert, Oriented x3, No Motor/Sensory Deficits Skin: Normal Color, Warm/Dry Results Results/Procedures Labs Laboratory Tests 06/07/19 01:50 Patient resulted labs reviewed. Short Stay Diagnosis Discharge Diagnosis-Short Stay Admission Diagnosis Patient was admitted with reported atrial fibrillation with rapid ventricular response. However I did not see any documented heart rates greater than 100 although I suspect there will probably some telemetry heart rates or higher. On review of her EKG she appears to be in an atrially paced rhythm no definitive atrial fibrillation noted by myself frequent PACs and PVCs are noted. She was admitted to the intensive care unit on a Cardizem drip but I'm in the process of switching this. I did discuss with the patient did be better to take 2.5 mg of AHLQUIST twice a day and then 5 mg once a day and see if this did not mitigate b leeding issues. Considering metastatic non-small cell lung cancer consideration for discontinuing therapy especially as her disease progresses or if there are any more significant bleeding issues. As long as the patient can ambulate and pending evaluation per Dr. Rdz if the patient does not exhibit complex arrhythmias consideration for discharge later today on diltiazem and metoprolol for rate control. Patient had no clinical signs or laboratory evaluation to suggest pneumonia abnormal chest x-ray secondary to lung cancer. Final Discharge Diagnosis A/P 1. Paroxysmal fibrillation with rapid ventricular response. 2. Non-small cell lung cancer with pulmonary and bony metastasis. Conclusion Plan See admission diagnosis Clinical Quality Measures DVT/VTE Risk/Contraindication: Risk Factor Score Per Nursin RFS Level Per Nursing on Admit: 4+=Very High LICHA HERNANDEZ MD Jun 07, 2019 11:55
[2019-06-07] MEDS ORDERED: APIX2.5T PO (12:36)
[2019-06-07] MEDS ORDERED: APIXABAN 2.5 MG (ELIQUIS) TABLET PO SCH (21:00)
[2019-06-07] MEDS ORDERED: DILTIAZEM 180 MG (CARDIZEM CD) CAP PO SCH (21:00)
[2019-06-08] MEDS ORDERED: cefTRIAXone 1,000 MG/SWFI 10 ML IV PUSH IV SCH ×2 (04:00)
== END 2019-06-07 13:15 | disposition home or self-care (01) | DRG 309 ==
LOC: EDUNIT# 01:19 → ER 01:21 → ICU 02:20
PROVIDERS: ADMIT Internal Medicine; ATTEND Internal Medicine
DX: I48.0 Paroxysmal atrial fibrillation (principal); C79.51 Secondary malignant neoplasm of bone; I11.0 Hypertensive heart disease with heart failure; I50.30 Unspecified diastolic (congestive) heart failure; E87.2 Acidosis; N17.9 Acute kidney failure, unspecified; N30.00 Acute cystitis without hematuria; I25.10 Atherosclerotic heart disease of native coronary artery without angina pectoris; E86.0 Dehydration; E05.90 Thyrotoxicosis, unspecified without thyrotoxic crisis or storm; M19.91 Primary osteoarthritis, unspecified site; J43.9 Emphysema, unspecified; F41.9 Anxiety disorder, unspecified; D64.9 Anemia, unspecified; F32.9 Major depressive disorder, single episode, unspecified; Z85.110 Personal history of malignant carcinoid tumor of bronchus and lung; Z92.3 Personal history of irradiation; Z92.21 Personal history of antineoplastic chemotherapy; Z79.01 Long term (current) use of anticoagulants; Z88.0 Allergy status to penicillin; Z95.0 Presence of cardiac pacemaker; Z87.891 Personal history of nicotine dependence
CPT/HCPCS: 36415; 71045; 80053; 81000; 83735; 83874; 83880; 84484; 85025; 85379; 85610; 85730; 87081; 87088; 93005; 93041; 96365; 96366; 96375

== ENCOUNTER 2019-07-19 20:26 | Observation (INO) | payer MEDICARE ==
[~2019-07-19] VITALS: Ht 162.6 cm; Wt 59.0 kg
[~2019-07-19 20:26] MED LIST changes: +APIX2.5T PO
--- NOTE | 2019-07-19 20:40 | ED General ---
General Chief Complaint: Respiratory Problems Stated Complaint: SOB Source of Information: Patient Exam Limitations: No Limitations History of Present Illness Date Seen by Provider: Jul 19, 2019 Time Seen by Provider: 20:38 Initial Comments To Er with c/o "heart fluttering when I walk", general malaise since starting a new medication for her cancer 3 days ago, states "Its to give you energy"(in reviewing her med list she is on a steroid taper). She cannot recall the name of it. Denies fevers or chills or nausea/vomiting. Does report nonbloody diarrhea anytime that she eats. She is on a steroid taper. Timing/Duration: 2-3 Days Severity: Moderate Associated Systoms: Malaise, Weakness Allergies and Home Medications Allergies Coded Allergies: Penicillins (Unverified Allergy, Mild, RASH, 09/24/10) RUPAL Inhibitors (Verified Allergy, Unknown, HIVES, 12/11/16) atorvastatin (Verified Allergy, Unknown, HIVES, 12/11/16) iodine (Verified Allergy, Unknown, HIVES, 12/11/16) Home Medications Albuterol Sulfate 18 Gm Hfa.aer.ad, 2 PUFF IH Q4H PRN for SHORTNESS OF BREATH, (Reported) Apixaban 2.5 Mg Tablet, 2.5 MG PO BID Prescribed by: LICHA ANDERSON on 06/07/19 1236 Budesonide/Formoterol Fumarate 10.2 Gm Hfa.aer.ad, 2 PUFF INH BID PRN for SHORTNESS OF BREATH, (Reported) LAST FILLED 04/02/17 #1 INHALER Diltiazem HCl 180 Mg Cap.er.24h, 180 MG PO BID, (Reported) Furosemide 20 Mg Tablet, 20 MG PO DAILY, (Reported) Furosemide 20 Mg Tablet, 20 MG PO HS PRN for SWELLING , (Reported) Hydrocodone Bit/Acetaminophen 1 Each Tablet, 1 EACH PO Q6H PRN for BREAKTHROUGH PAIN Prescribed by: VEE CERRATO on 06/22/17 1654 Metoprolol Tartrate 100 Mg Tablet, 100 MG PO BID, (Reported) Potassium Chloride 8 Meq Tablet.er, 8 MEQ PO HS PRN for IF TAKING 2ND DOSE FUROSEMIDE, (Reported) LAST FILLED #30 02-27-17 Tiotropium [place] 4 Gm Mist.inhal, 2 PUFF IH DAILY PRN for SHORTNESS OF BREATH, (Reported) LAST FILLED 04/02/17 #1 INHALER Valsartan 80 Mg Tablet, 80 MG PO BID, (Reported) Patient Home Medication List Home Medication List Reviewed: Yes Review of Systems Review of Systems Constitutional: see HPI EENTM: see HPI Respiratory: see HPI, dyspnea on exertion Cardiovascular: no symptoms reported; No chest pain Genitourinary: no symptoms reported Musculoskeletal: no symptoms reported Skin: no symptoms reported Psychiatric/Neurological: No Symptoms Reported Past Dsdldui-Ukwqem-Vgousq Hx Patient Social History Alcohol Use: Denies Use Recreational Drug Use: No Smoking Status: Former Smoker Type Used: Cigarettes Former Smoker, Quit: Jul 09, 1982 2nd Hand Smoke Exposure: No (quit 20 years ago) Recent Foreign Travel: No Contact w/Someone Who Travel: No Recent Hopitalizations: Yes (pacemaker placement) Immunizations Up To Date Tetanus Booster (TDap): Unknown PED Vaccines UTD: Yes Date of Pneumonia Vaccine: Aug 17, 2013 Date of Influenza Vaccine: Sep 07, 2013 Seasonal Allergies Seasonal Allergies: No Past Medical History Surgeries: Yes (CARDIAC CATH; RIGHT LUNG RESECTION/TUMOR REMOVAL, placemaker) Cardiac, Gallbladder, Hysterectomy, Lobectomy, Tonsillectomy Respiratory: Yes (+ 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 No Pertinent Family Hx Mother: 95yo alive and well, sister 71yo alive and well Physical Exam Vital Signs Vital Signs - First Documented 07/19/19 20:30 Temp 97.6 Pulse 119 Resp 27 B/P (MAP) 143/93 (110) Pulse Ox 100 O2 Delivery Room Air Capillary Refill : Height, Weight, BMI Height: 5'4.00" Weight: 117lbs. 8.0oz. 53.812188yg; 20.2 BMI Method:Stated General Appearance: No Apparent Distress, WD/WN Eyes: Bilateral Eye Normal Inspection, Bilateral Eye PERRL, Bilateral Eye EOMI HEENT: PERRL/EOMI, TMs Normal Respiratory: No Accessory Muscle Use, No Respiratory Distress Cardiovascular: No Edema, Irregularly Irregular, Tachycardia (rate 110-140 a-f ib. Pressures 140 systolic. Mentating just fine. ) Gastrointestinal: Non Tender, Soft Neurologic/Psychiatric: Alert, Oriented x3 Progress/Results/Core Measures Suspected Sepsis SIRS Temperature: Pulse: Respiratory Rate: Laboratory Tests 07/19/19 20:38: White Blood Count 15.1H Blood Pressure / Mean: Laboratory Tests 07/19/19 20:38: Creatinine 0.87, Platelet Count 461H, Total Bilirubin 0.4 Results/Orders Lab Results Laboratory Tests Test 07/19/19 20:38 Range/Units White Blood Count 15.1 H 4.3-11.0 10^3/uL Red Blood Count 2.69 L 4.35-5.85 10^6/uL Hemoglobin 7.6 L 11.5-16.0 G/DL Hematocrit 24 L 35-52 % Mean Corpuscular Volume 90 80-99 FL Mean Corpuscular Hemoglobin 28 25-34 PG Mean Corpuscular Hemoglobin Concent 31 L 32-36 G/DL Red Cell Distribution Width 18.7 H 10.0-14.5 % Platelet Count 461 H 130-400 10^3/uL Mean Platelet Volume 9.5 7.4-10.4 FL Neutrophils (%) (Auto) 80 H 42-75 % Lymphocytes (%) (Auto) 10 L 12-44 % Monocytes (%) (Auto) 8 0-12 % Eosinophils (%) (Auto) 2 0-10 % Basophils (%) (Auto) 0 0-10 % Neutrophils # (Auto) 12.1 H 1.8-7.8 X 10^3 Lymphocytes # (Auto) 1.5 1.0-4.0 X 10^3 Monocytes # (Auto) 1.2 H 0.0-1.0 X 10^3 Eosinophils # (Auto) 0.2 0.0-0.3 10^3/uL Basophils # (Auto) 0.0 0.0-0.1 10^3/uL Neutrophils % (Manual) 82 % Lymphocytes % (Manual) 6 % Monocytes % (Manual) 6 % Eosinophils % (Manual) 2 % Basophils % (Manual) 0 % Band Neutrophils 4 % Anisocytosis SLIGHT Sodium Level 137 135-145 MMOL/L Potassium Level 3.1 L 3.6-5.0 MMOL/L Chloride Level 99 98-107 MMOL/L Carbon Dioxide Level 22 21-32 MMOL/L Anion Gap 16 H 5-14 MMOL/L Blood Urea Nitrogen 26 H 7-18 MG/DL Creatinine 0.87 0.60-1.30 MG/DL Estimat Glomerular Filtration Rate > 60 BUN/Creatinine Ratio 30 Glucose Level 146 H 70-105 MG/DL Calcium Level 8.6 8.5-10.1 MG/DL Corrected Calcium 9.1 8.5-10.1 MG/DL Magnesium Level 2.0 1.6-2.4 MG/DL Total Bilirubin 0.4 0.1-1.0 MG/DL Aspartate Amino Transf (AST/SGOT) 13 5-34 U/L Alanine Aminotransferase (ALT/SGPT) 17 0-55 U/L Alkaline Phosphatase 110 40-136 U/L Troponin I < 0.028 <0.028 NG/ML B-Type Natriuretic Peptide 384.3 H <100.0 PG/ML Total Protein 5.9 L 6.4-8.2 GM/DL Albumin 3.4 3.2-4.5 GM/DL My Orders Orders - ZAYNAB AVILA APRN Diltiazem Cd 24 Hr Capsule (Cardizem Cd (07/19/19 20:45) Diltiazem Injection (Cardizem Injection) (07/19/19 20:45) Ns Iv 500 Ml (Sodium Chloride 0.9%) (07/19/19 20:45) Cbc With Automated Diff (07/19/19 20:42) BNP (07/19/19 20:42) Comprehensive Metabolic Panel (07/19/19 20:42) Troponin I (07/19/19 20:42) Chest 1 View, Ap/Pa Only (07/19/19 20:42) Ekg Tracing (07/19/19 20:42) Division Road Supervisor (07/19/19 20:42) Magnesium (07/19/19 20:42) Manual Differential (07/19/19 20:38) Potassium Chloride (Tablet) (Klor Con Ta (07/19/19 21:30) Vital Signs/I&O 07/19/19 20:30 Temp 97.6 Pulse 119 Resp 27 B/P (MAP) 143/93 (110) Pulse Ox 100 O2 Delivery Room Air Capillary Refill : Departure Communication (Admissions) Time/Spoke to Admitting Phy: 21:45 2143-Pt given cardizem po 120mg in addition to her dose that she'd taken at home already of 180mg daily. She also was given 10mg IV cardizem. HR now 84 a-fib, BP 138/74. 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 Impression Primary Impression: Symptomatic anemia Disposition: HOME, SELF-CARE Condition: Stable Admissions Decision to Admit Reason: Admit from ER (General) Decision to Admit/Date: Jul 19, 2019 Time/Decision to Admit Time: 21:45 Departure-Patient Inst. Referrals: MICHAEL HALEY MD (PCP/Family) Primary Care Physician ZAYNAB AVILA APRN Jul 19, 2019 20:40
[2019-07-19] MEDS ORDERED: DILTIAZEM 120 MG (CARDIZEM CD) CAP PO SCH (20:45)
[2019-07-19] MEDS ORDERED: DILTIAZEM 25 MG/5 ML INJ (CARDIZEM) VIAL IVP ONE (20:45)
[2019-07-19] MEDS ORDERED: NS IV 500 ML 500 ML IV SCH (20:45)
[2019-07-19 20:52] LABS: BASOPHILS % (AUTO) 0 % (0-10); EOSINOPHILS # (AUTO) 0.2 10^3/uL (0.0-0.3); EOSINOPHILS % (AUTO) 2 % (0-10); HEMATOCRIT 24 % (35-52); HEMOGLOBIN 7.6 G/DL (11.5-16.0); LYMPHOCYTES # (AUTO) 1.5 X 10^3 (1.0-4.0); LYMPHOCYTES % (AUTO) 10 % (12-44); MEAN CORPUSCULAR HEMOGLOBIN 28 PG (25-34); MEAN CORPUSCULAR HGB CONC 31 G/DL (32-36); MEAN CORPUSCULAR VOLUME 90 FL (80-99); MEAN PLATELET VOLUME 9.5 FL (7.4-10.4); MONOCYTES # (AUTO) 1.2 X 10^3 (0.0-1.0); MONOCYTES % (AUTO) 8 % (0-12); NEUTROPHILS # (AUTO) 12.1 X 10^3 (1.8-7.8); NEUTROPHILS % (AUTO) 80 % (42-75); PLATELET COUNT 461 10^3/uL (130-400); RED CELL DISTRIBUTION WIDTH 18.7 % (10.0-14.5); WHITE BLOOD COUNT 15.1 10^3/uL (4.3-11.0)
--- NOTE | 2019-07-19 20:58 | Diagnostic Imaging Report ---
EXAM: CHEST 1 VIEW, AP/PA ONLY INDICATION: Tachycardia. Anorexia. Unable to walk. COMPARISON: 06/07/2019. FINDINGS: Stable dense consolidation in the right lung base. No pleural effusion or pneumothorax. Stable prominent heart size with normal central pulmonary vascularity. Calcified aorta. Cardiac pacer. Right IJ tunnel port CVC tip low SVC. IMPRESSION: Persistent dense consolidation in the right lung base. Given the persistence for greater than one month, findings are suspicious for a mass. Dictated by: Dictated on workstation # [id number]
[2019-07-19 21:11] LABS: BAND NEUTROPHILS 4 %; BASOPHILS % (MANUAL) 0 %; EOSINOPHILS % (MANUAL) 2 %; LYMPHOCYTES % (MANUAL) 6 %; MONOCYTES % (MANUAL) 6 %; NEUTROPHILS % (MANUAL) 82 %
[2019-07-19 21:12] LABS: ANISOCYTOSIS SLIGHT
[2019-07-19 21:17] LABS: ALANINE AMINOTRANSFERASE 17 U/L (0-55); ALBUMIN 3.4 GM/DL (3.2-4.5); ALKALINE PHOSPHATASE 110 U/L (40-136); BILIRUBIN,TOTAL 0.4 MG/DL (0.1-1.0); BUN/CREATININE RATIO 30; CALCIUM 8.6 MG/DL (8.5-10.1); CARBON DIOXIDE 22 MMOL/L (21-32); CHLORIDE 99 MMOL/L (98-107); CREATININE SERUM 0.87 MG/DL (0.60-1.30); GFR ESTIMATED > 60; GLUCOSE 146 MG/DL (70-105); POTASSIUM 3.1 MMOL/L (3.6-5.0); SODIUM 137 MMOL/L (135-145); TOTAL PROTEIN 5.9 GM/DL (6.4-8.2)
[2019-07-19] MEDS ORDERED: KCL 10 MEQ TAB (MICRO K) PO ONE (21:30)
--- NOTE | 2019-07-19 23:17 | NUR ---
Admitted to room 426 per w/c.
[2019-07-19 23:20] VITALS: BP 157/70
[2019-07-19] MEDS ORDERED: NS IV 1000 ML 1,000 ML ONE (23:21)
[2019-07-19 23:37] VITALS: BP 157/70
[2019-07-19] MEDS ORDERED: FUROSEMIDE 40 MG/4 ML INJ (LASIX) IV ONE (23:45)
[2019-07-20] VITALS (13 sets, daily range): BP systolic 130–184; BP diastolic 70–90
[2019-07-20] MEDS ORDERED: FUROSEMIDE 40 MG/4 ML INJ (LASIX) IV ONE (03:30)
--- NOTE | 2019-07-20 06:49 | History & Physical ---
History of Present Illness History of Present Illness Reason for visit/HPI 78 yo F admitted for observation last night for atrial fibrillation with RVR likely from her hemoglobin being 7.6. Her baseline hemoglobin appears to be around 9-10. She is currently on chemotherapy every Saturday for metastatic breast cancer. Patient reports her son has been helping her more the last week due to increasing weakness. She reports the last 3 days have been terrible due to weakness and shortness of breath. She was going to try to go to [facility]lim yesterday but did not have the energy. Since she was getting worse she thought she needed to come to the ER. She was given diltiazem orally and IV and her pulse went from >100 to 80s. She is getting 2 units of pRBC for her symptomatic anemia. She reports she is feeling better this AM. She reports dark diarrhea stools that is worsened by the chemotherapy but then she will take antidiarrhea pills for a couple days and have normal bowel movements. Date of Admission Jul 19, 2019 at 22:35 Date Seen by a Provider: Jul 20, 2019 Time Seen by a Provider: 06:49 I consulted on this patient on 07/20/19 06:44 Attending Physician Ede Hernandez MD Admitting Physician Eduardo Mejía MD Consult Allergies and Home Medications Allergies Coded Allergies: Penicillins (Unverified Allergy, Mild, RASH, 09/24/10) RUPAL Inhibitors (Verified Allergy, Unknown, HIVES, 12/11/16) atorvastatin (Verified Allergy, Unknown, HIVES, 12/11/16) iodine (Verified Allergy, Unknown, HIVES, 12/11/16) Home Medications Albuterol Sulfate 18 Gm Hfa.aer.ad, 2 PUFF IH Q4H PRN for SHORTNESS OF BREATH, (Reported) Apixaban 2.5 Mg Tablet, 2.5 MG PO BID, (Reported) Aspirin 81 Mg Tablet.dr, 81 MG PO DAILY, (Reported) Budesonide/Formoterol Fumarate 10.2 Gm Hfa.aer.ad, 2 PUFF INH BID PRN for SHORTNESS OF BREATH, (Reported) LAST FILLED 04-07-2019 #1 INHALER Diltiazem HCl 180 Mg Cap.er.24h, 180 MG PO BID, (Reported) Folic Acid 1 Mg Tablet, 1 MG PO DAILY, (Reported) Furosemide 20 Mg Tablet, 20 MG PO DAILY, (Reported) Furosemide 20 Mg Tablet, 20 MG PO HS PRN for SWELLING , (Reported) Hydrocodone/Acetaminophen 1 Each Tablet, 1 TAB PO Q4H, (Reported) Metoprolol Tartrate 100 Mg Tablet, 100 MG PO BID, (Reported) Nitrofurantoin Monohyd/M-Cryst 100 Mg Capsule, 100 MG PO BID, (Reported) PICKED UP A 7 DAY SUPPLY ON 07-13-2019 Prochlorperazine Maleate 10 Mg Tablet, 10 MG PO Q6H PRN for NAUSEA/VOMITING-4TH LINE, (Reported) Patient Home Medication List Home Medication List Reviewed: Yes Past Uzcytno-Rlaqej-Mtgxit Hx Patient Social History Alcohol Use: Denies Use Recreational Drug Use: No Smoking Status: Former Smoker Former Smoker, Quit: Jul 09, 1982 Type Used: Cigarettes 2nd Hand Smoke Exposure: No (quit 20 years ago) Recent Foreign Travel: No Contact w/other who traveled: No Recent Hopitalizations: Yes (pacemaker placement) Recent Infectious Disease Expo: No Immunizations Up To Date Tetanus Booster (TDap): Unknown Pediatric: Yes Date of Pneumonia Vaccine: Aug 17, 2013 Date of Influenza Vaccine: Sep 07, 2013 Seasonal Allergies Seasonal Allergies: No Surgeries Yes (CARDIAC CATH; RIGHT LUNG RESECTION/TUMOR REMOVAL, placemaker) Cardiac, Gallbladder, Hysterectomy, Lobectomy, Tonsillectomy Respiratory Yes (+ 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, s/p lobectomy) Currently Using CPAP: No Currently Using BIPAP: No Cardiovascular Yes (LBBB, LVH, CHF) Atrial Fibrillation, Coronary Artery Disease, Hypertension, Palpitations Neurological Yes TIA Reproductive System Hx Reproductive Disorders: No Sexually Transmitted Disease: No HIV/AIDS: No PRIEST History: Menopausal Genitourinary Yes Bladder Infection Gastrointestinal Yes (S/P SOCORRO) Gall Bladder Disease Musculoskeletal Yes Arthritis, Chronic Back Pain Endocrine History of Endocrine Disorders: Yes Endocrine Disorders: Hyperthyroidism HEENT HEENT Disorders: Cataract Cancer Yes (LBBB, LVH, chf, diastolic heart failure) Lung Type of Treatment: Radiation, Surgical Intervention Psychosocial History of Psychiatric Problem: Yes Behavioral Health Disorders: Anxiety, Depression Integumentary History of Skin or Integumenta: No Blood Transfusions History of Blood Disorders: No Adverse Reaction to a Blood Tr: No Family Medical History Significant Family History: No Pertinent Family Hx Other Significan Family Hx: Mother: 95yo alive and well, sister 71yo alive and well Family Hx: Patient reports no known family medical history. Review of Systems Review of Systems General: No Chills; Fatigue, Malaise, Appetite (poor) HEENT: No Head Aches, No Visual Changes Pulmonary: Dyspnea; No Cough Cardiovascular: Palpitations; No: Chest Pain Gastrointestinal: No: Nausea, Vomiting, Abdominal Pain Genitourinary: No Dysuria Musculoskeletal: No: neck pain Neurological: Weakness Physical Exam Vital Signs Vital Signs - First Documented 07/19/19 20:30 Temp 97.6 Pulse 119 Resp 27 B/P (MAP) 143/93 (110) Pulse Ox 100 O2 Delivery Room Air Capillary Refill : Less Than 3 Seconds Height, Weight, BMI Height: 5'4.00" Weight: 128lbs. 1.0oz. 58.326372qb; 20.2 BMI Method:Stated General Appearance: Anxious, Chronically ill, Mild Distress HEENT: PERRL/EOMI Neck: Non Tender, Supple Respiratory: Chest Non Tender, Lungs Clear, Normal Breath Sounds Cardiovascular: Other (irregular rhythm, regular rate) Gastrointestinal: Normal Bowel Sounds, Non Tender, Soft Rectal: Deferred Extremity: Normal Inspection, Non Tender, No Calf Tenderness Neurologic/Psychiatric: Alert, Oriented x3, No Motor/Sensory Deficits, Normal Mood/Affect Skin: Warm/Dry Assessment/Plan Assessment/Plan Admission Dx symptomatic anemia atrial fibrillation with RVR Admission Status: Observation Assessment and Plan 07/20/19- no longer in RVR with dialtiazem. Transfusing 2 u pRBC and will recheck hemoglobin. FOBT pending. WBC elevated on admission will recheck. will order PT to walk patient today. -the question of continuing eliquis vs stopping it to be discussed with patient and medical team. -follow up with Dr. Mejía after discharge. Dispo: possible discharge to home 07/21/19- will recheck hgb tomorrow. Problems: (1) Non-small cell carcinoma of lung (2) Anemia of chronic disease Assessment & Plan: baseline hgb is around 9-10 (3) Atrial fibrillation with RVR Assessment & Plan: she is on eliquis (4) Symptomatic anemia Clinical Quality Measures DVT/VTE Risk/Contraindication: Risk Factor Score Per Nursin RFS Level Per Nursing on Admit: 4+=Very High LUI KRUEGER MD Jul 20, 2019 06:49
[2019-07-20] MEDS ORDERED: KCL 20 MEQ TAB (K-DUR) PO SCH (07:00)
[2019-07-20] MEDS ORDERED: PROC10TA10 PO (08:37)
[2019-07-20] MEDS ORDERED: NITR100C10 PO (08:37)
[2019-07-20] MEDS ORDERED: FOLI1TAB24 PO (08:37)
[2019-07-20] MEDS ORDERED: APIX2.5T PO (08:37)
[2019-07-20] MEDS ORDERED: HYDR-3812 PO (08:37)
[2019-07-20] MEDS ORDERED: ASPI-983 PO (08:40)
--- NOTE | 2019-07-20 08:41 | NUR ---
SPOKE WITH PT WELL GOING OVER THE EXT MED HISTORY TO COMPLETE THE MED REC. SYMBICORT AND FOLIC ACID ARE DUE FOR REFILLS PT IS AWARE THAT IS HAS BEEN AWHILE SINCE THESE HAVE BEEN FILLED, SHE INDICATES SHE HAS JUST NOT MADE IT TO THE PHARMACY TO PICK THEM UP. SHE INDICATES THESE ARE ONES THAT SHE USUALLY TAKES PREDNISONE AND FAMOTIDINE WERE GIVEN TO THE PATIENT RECENTLY BUT SHE INDICATES THAT SHE ONLY TOOK A FEW DOSES AND IT MADE HER FEEL SO WEEK THAT SHE DIDNT KEEP TAKING THEM OTC MEDS: ASPIRIN 81M DAILY
[2019-07-20] MEDS ORDERED: PANTOPRAZOLE 40 MG (PROTONIX) VIAL IV SCH (09:00)
[2019-07-20 09:58] LABS: BASOPHILS % (AUTO) 0 % (0-10); EOSINOPHILS # (AUTO) 0.4 10^3/uL (0.0-0.3); EOSINOPHILS % (AUTO) 3 % (0-10); HEMATOCRIT 30 % (35-52); HEMOGLOBIN 9.9 G/DL (11.5-16.0); LYMPHOCYTES # (AUTO) 0.6 X 10^3 (1.0-4.0); LYMPHOCYTES % (AUTO) 4 % (12-44); MEAN CORPUSCULAR HEMOGLOBIN 29 PG (25-34); MEAN CORPUSCULAR HGB CONC 33 G/DL (32-36); MEAN CORPUSCULAR VOLUME 89 FL (80-99); MEAN PLATELET VOLUME 9.5 FL (7.4-10.4); MONOCYTES # (AUTO) 1.2 X 10^3 (0.0-1.0); MONOCYTES % (AUTO) 8 % (0-12); NEUTROPHILS % (AUTO) 85 % (42-75); PLATELET COUNT 292 10^3/uL (130-400); RED CELL DISTRIBUTION WIDTH 17.2 % (10.0-14.5); WHITE BLOOD COUNT 15.2 10^3/uL (4.3-11.0)
[2019-07-20] MEDS ORDERED: FUROSEMIDE 20 MG (LASIX) TAB PO PRN (10:00)
[2019-07-20] MEDS ORDERED: KCL 10 MEQ TAB (MICRO K) PO SCH (10:00)
[2019-07-20] MEDS: meTOprolol TARTRATE 50 MG (LOPRESSOR) TAB PO SCH ×2 (10:46→20:25)
--- NOTE | 2019-07-20 10:54 | Physical Therapy Evaluation ---
PT Evaluation-General Medical Diagnosis Admission Date Jul 19, 2019 at 22:35 Medical Diagnosis: symptomatic anemia (A-fib) Onset Date: Jul 19, 2019 Therapy Diagnosis Therapy Diagnosis: debility/weakness Height/Weight Height (Feet): 5 Height (Inches): 4.00 Weight (Pounds): 128 Weight (Ounces): 1.0 Precautions Precautions/Isolations: Fall Prevention, Standard Precautions Weight Bear Status Right Lower Extremity: Right Weight Bearing/Tolerated Left Lower Extremity: Left Weight Bearing/Tolerated Referral Physician: Arun Reason for Referral: Evaluation/Treatment Medical History Pertinent Medical History: Atrial Fib, CAD, COPD, Heart Failure, HTN Additional Medical History metastatic breast cancer Current History ER with c/o "heart flutter" began new medication 3 days prior to increase energy Reviewed History: Yes Social History Home: Single Level Current Living Status: Other Family Prior/Core FIM Prior Level of Function Therapy Code Descriptions/Definitions Functional [place] Measure: 0=Not Assessed/NA 4=Minimal Assistance 1=Total Assistance 5=Supervision or Setup 2=Maximal Assistance 6=Modified [place] 3=Moderate Assistance 7=Complete [place] Therapy Quality Codes: 6 Independent with activity with or without an assistive device 5 Patient requires set up or clean up by helper. Patient completes activity by themselves 4 Supervision or touching assist (CGA). [place] provide cues , steadying assist 3 The helper provides less than half the effort to complete the activity 2 The helper provides more than half the effort to complete the activity 1 Dependent. The helper does all the effort to complete an activity 7 Patient refused to complete or attempt activity 9 The patient did not perform the activity before the current illness or injury 88 Not attempted due to Medical conditions or safety concerns Functional Abilities and Goals: Independent: Patient completed the activities by him/herself, with or without an assistive device, with no assistance from a helper. Needed Some Help: Patient needed partial assistance from another person to complete activities. Dependent: A helper completed the activities for the patient. Unknown: Not Applicable: Bed Mobility: 6 Transfers (B,C,W/C) (FIM): 6 Gait: 7 Stairs: 6 Indoor Mobility (Ambulation): Independent Stairs: Independent Prior Devices Use: None, Walker has a FWW but does not use it per son report PT Evaluation-Current Subjective Patient agrees to PT. Son present. Pain Numeric Pain Scale: 5-Moderate Pain Location: Lower Location Body Site: Back Pain Description: Chronic Objective Patient Orientation: Person, Time, Situation Problem Solving: Poor Attachments: IV ROM/Strength ROM Lower Extremities bilateral LE WFL Strength Lower Extremities 3/5 grossly bilateral LE Integumentary/Posture Integumentary refer to nursing notes Bowel Incontinence: No Bladder Incontinence: No Posture kyphotic Neuromuscular (Tone, Coordination, Reflexes) grossly intact Sensory Vision: Functional Hearing: Functional Sensation Right Lower Extremit: Impaired Sensation Left Lower Extremity: Impaired Transfers Therapy Code Descriptions/Definitions Functional [place] Measure: 0=Not Assessed/NA 4=Minimal Assistance 1=Total Assistance 5=Supervision or Setup 2=Maximal Assistance 6=Modified [place] 3=Moderate Assistance 7=Complete [place] Transfers (B, C, W/C) (FIM): 7 Scootin Rollin Supine to/from Sit: 7 Sit to/from Stand: 7 Gait Mode of Locomotion: Walk Anticipated Mode of Locomotion: Walk Gait (FIM): 6 Distance (FIM): 3=150 ft Distance: 600' Gait Level of Assist: 6 Gait Assistive Device: FWW Comments/Gait Description skilled VC's for body placement in FWW due to extended UE's Balance Sitting Static: Normal Sitting Dynamic: Normal Standing Static: Fair Standing Dynamic: Fair Assessment/Needs 78 y.o. female, will benefit from skilled PT to address functional strength and mobility to improve current LOF to safely return to home with family at maximum LOF. Rehab Potential: Guarded Post Rehab Potential-Barriers: metastatic cancer PT [facility] Goals Chief Of Internal Medicine Goals PT [facility] Goals Time Frame: Jul 25, 2019 Transfers (B,C,W/C) (FIM): 7 Gait (FIM): 6 Gait distance (FIM): 3=150 ft Gait Level of Assist: 6 Gait Assistive Device: FWW Stairs (FIM): 2 # of Steps: 6 Stairs Level Of Assist: 5 PT Plan Problem List Problem List: Activity Tolerance, Functional Strength, Safety, Balance, Gait Treatment/Plan Treatment Plan: Continue Plan of Care Treatment Plan: Bed Mobility, Education, Functional Activity Phil, Functional Strength, Gait, Safety, Therapeutic Exercise, Transfers Treatment Duration: Jul 25, 2019 Frequency: 6 times per week Estimated Hrs Per Day: .25 hour per day Patient and/or Family Agrees t: Yes Discharge Recommendations Therapy D/C Recommendations: Home w/ Family Support Time/GCodes Time In: 1025 Time Out: 1042 Total Billed Treatment Time: 17 Total Billed Treatment 1 visit EVModC 17 min LYLE SUAZO PT Jul 20, 2019 10:54
--- NOTE | 2019-07-20 15:32 | NUR ---
Initial visit: The pt shared that she is receiving treatments for cancer, is a [employer], and accepting of prayer. She is a member of [facility] religious and accepted my offer to contact her blueprint maker, Terrell Jaramillo. Pastor Jaramillo said he would visit the pt this afternoon.
[2019-07-20] MEDS: NITROFURANTOIN 100 MG (MACROBID) CAPSULE PO SCH (18:04)
[2019-07-20] MEDS: KCL 10 MEQ TAB (MICRO K) PO SCH (18:04)
[2019-07-20] MEDS ORDERED: RT-ADVAIR HFA 115/21 MCG PER PUFF IH PRN (20:00)
[2019-07-20] MEDS: APIXABAN 2.5 MG (ELIQUIS) TABLET PO SCH (20:25)
[2019-07-21] MEDS: PROCHLORPERAZINE 10 MG TAB (COMPAZINE) PO PRN ×2 (02:01→08:03)
[2019-07-21] MEDS: HYDROcodone/APAP 5 MG/325 MG (LORTAB) TAB PO PRN ×4 (03:14→20:36)
[2019-07-21 04:32] VITALS: BP 178/86
[2019-07-21] MEDS: FOLIC ACID 1 MG TAB PO SCH (05:46)
[2019-07-21] MEDS: NITROFURANTOIN 100 MG (MACROBID) CAPSULE PO SCH ×2 (05:46→16:28)
[2019-07-21] MEDS: KCL 10 MEQ TAB (MICRO K) PO SCH ×2 (05:47→16:28)
[2019-07-21 06:03] LABS: BASOPHILS % (AUTO) 0 % (0-10); EOSINOPHILS # (AUTO) 0.2 10^3/uL (0.0-0.3); EOSINOPHILS % (AUTO) 2 % (0-10); HEMATOCRIT 30 % (35-52); HEMOGLOBIN 9.8 G/DL (11.5-16.0); LYMPHOCYTES # (AUTO) 0.4 X 10^3 (1.0-4.0); LYMPHOCYTES % (AUTO) 3 % (12-44); MEAN CORPUSCULAR HEMOGLOBIN 29 PG (25-34); MEAN CORPUSCULAR HGB CONC 32 G/DL (32-36); MEAN CORPUSCULAR VOLUME 88 FL (80-99); MEAN PLATELET VOLUME 9.2 FL (7.4-10.4); MONOCYTES # (AUTO) 1.2 X 10^3 (0.0-1.0); MONOCYTES % (AUTO) 8 % (0-12); NEUTROPHILS # (AUTO) 12.7 X 10^3 (1.8-7.8); NEUTROPHILS % (AUTO) 87 % (42-75); PLATELET COUNT 267 10^3/uL (130-400); RED CELL DISTRIBUTION WIDTH 17.5 % (10.0-14.5); WHITE BLOOD COUNT 14.5 10^3/uL (4.3-11.0)
[2019-07-21 06:23] LABS: BUN/CREATININE RATIO 26; CALCIUM 8.6 MG/DL (8.5-10.1); CARBON DIOXIDE 20 MMOL/L (21-32); CHLORIDE 100 MMOL/L (98-107); CREATININE SERUM 0.66 MG/DL (0.60-1.30); GFR ESTIMATED > 60; GLUCOSE 118 MG/DL (70-105); MAGNESIUM 1.7 MG/DL (1.6-2.4); POTASSIUM 4.6 MMOL/L (3.6-5.0); SODIUM 131 MMOL/L (135-145)
--- NOTE | 2019-07-21 06:57 | Progress Note ---
Subjective Subjective Date Seen by Provider: Jul 21, 2019 Time Seen by Provider: 06:51 78 yo F labs have all improved. Hgb stable. Patient received her last doses of nitrofurantoin yesterday which seems to have triggered her to remember she was being treated for a UTI- so now she has dysuria. She also says she can not walk or get up. But she would be up and near the bathroom before nursing could respond to her call light. A little confused this AM. Review of Systems General: No Chills; Fatigue, Malaise, Appetite (poor) HEENT: No Head Aches, No Visual Changes Pulmonary: Dyspnea; No Cough Cardiovascular: Palpitations; No: Chest Pain Gastrointestinal: No: Nausea, Vomiting, Abdominal Pain Genitourinary: No Dysuria Musculoskeletal: No: neck pain Neurological: Weakness Objective Exam Vital Signs Vital Signs Date Time Temp Pulse Resp B/P (MAP) Pulse Ox O2 Delivery O2 Flow Rate FiO2 07/21/19 05:30 94 24 07/21/19 04:32 98.2 104 22 178/86 (116) 97 Room Air 07/20/19 23:41 98.3 89 20 180/77 (111) 99 Room Air 07/20/19 20:33 97.8 70 16 176/80 (112) 98 Room Air 07/20/19 20:00 0 Room Air 07/20/19 15:48 98.3 77 18 152/78 (102) 99 Room Air 07/20/19 12:00 97.6 86 20 145/73 (97) 100 Room Air 07/20/19 08:00 98 Room Air 07/20/19 08:00 97.2 86 20 184/90 98 Room Air 07/20/19 08:00 97.2 86 20 184/90 (121) 98 Room Air I & O 07/21/19 07:00 Intake Total 1690 ml Output Total 1600 ml Balance 90 ml General Appearance: Anxious, Chronically ill, Mild Distress Eyes: Bilateral Eye Normal Inspection, Bilateral Eye PERRL, Bilateral Eye EOMI HEENT: PERRL/EOMI Neck: Non Tender, Supple Respiratory: Chest Non Tender, Lungs Clear, Normal Breath Sounds Cardiovascular: Other (irregular rhythm, regular rate) Gastrointestinal: Normal Bowel Sounds, Non Tender, Soft Rectal: Deferred Extremity: Normal Inspection, Non Tender, No Calf Tenderness Neurologic/Psychiatric: Alert, Oriented x3, No Motor/Sensory Deficits, Normal Mood/Affect Skin: Warm/Dry Results Lab Laboratory Tests 07/20/19 09:45: White Blood Count 15.2H, Red Blood Count 3.42L, Hemoglobin 9.9#L, Hematocrit 30L , Mean Corpuscular Volume 89, Mean Corpuscular Hemoglobin 29, Mean Corpuscular Hemoglobin Concent 33, Red Cell Distribution Width 17.2H, Platelet Count 292, Mean Platelet Volume 9.5, Neutrophils (%) (Auto) 85H, Lymphocytes (%) (Auto) 4L, Monocytes (%) (Auto) 8, Eosinophils (%) (Auto) 3, Basophils (%) (Auto) 0, Neutrophils # (Auto) 13.0H, Lymphocytes # (Auto) 0.6L, Monocytes # (Auto) 1.2H, Eosinophils # (Auto) 0.4H, Basophils # (Auto) 0.0 07/20/19 11:33: Lab Scanned Report Transfusion Reaction Form 07/21/19 05:50: White Blood Count 14.5H, Red Blood Count 3.43L, Hemoglobin 9.8L, Hematocrit 30L, Mean Corpuscular Volume 88, Mean Corpuscular Hemoglobin 29, Mean Corpuscular Hemoglobin Concent 32, Red Cell Distribution Width 17.5H, Platelet Count 267, Mean Platelet Volume 9.2, Neutrophils (%) (Auto) 87H, Lymphocytes (%) (Auto) 3L, Monocytes (%) (Auto) 8, Eosinophils (%) (Auto) 2, Basophils (%) (Auto) 0, Neutrophils # (Auto) 12.7H, Lymphocytes # (Auto) 0.4L, Monocytes # (Auto) 1.2H, Eosinophils # (Auto) 0.2, Basophils # (Auto) 0.0, Sodium Level 131L, Potassium Level 4.6, Chloride Level 100, Carbon Dioxide Level 20L, Anion Gap 11, Blood Urea Nitrogen 17, Creatinine 0.66, Estimat Glomerular Filtration Rate > 60, BUN/Creatinine Ratio 26, Glucose Level 118H, Calcium Level 8.6, Magnesium Level 1.7 Assessment/Plan Assessment/Plan Admission Dx symptomatic anemia atrial fibrillation with RVR Assessment and Plan 07/20/19- no longer in RVR with dialtiazem. Transfusing 2 u pRBC and will re check hemoglobin. FOBT pending. WBC elevated on admission will recheck. will order PT to walk patient today. -the question of continuing eliquis vs stopping it to be discussed with patient and medical team. -follow up with Dr. Mejía after discharge. 07/21/19- hgb stable, potassium improved. WBC down to 14K. (she was recently placed on prednisone). She would benefit from SNU placement to help increase her odds of returning home safely. Ordering a UA since she now complains of dysuria. Dispo: Case management to work on placement in a SNU. Problems: (1) Non-small cell carcinoma of lung (2) Anemia of chronic disease Assessment & Plan: baseline hgb is around 9-10 (3) Atrial fibrillation with RVR Assessment & Plan: she is on eliquis (4) Symptomatic anemia Assessment & Plan: s/p 2 u pRBC 07/20/19 (5) Hypokalemia Assessment & Plan: replacing (6) Weakness Admission Dx symptomatic anemia atrial fibrillation with RVR Clinical Quality Measures Admission Status Admission Dx symptomatic anemia atrial fibrillation with RVR DVT/VTE Risk/Contraindication: Risk Factor Score Per Nursin RFS Level Per Nursing on Admit: 4+=Very High LUI KRUEGER MD Jul 21, 2019 06:57
[2019-07-21 08:00] VITALS: BP 153/82
[2019-07-21] MEDS: DILTIAZEM 180 MG (CARDIZEM CD) CAP PO SCH (08:00)
[2019-07-21] MEDS: ASPIRIN E.C. 81 MG (ECOTRIN) TAB PO SCH (08:00)
[2019-07-21] MEDS: meTOprolol TARTRATE 50 MG (LOPRESSOR) TAB PO SCH ×2 (08:01→20:35)
[2019-07-21] MEDS: FUROSEMIDE 20 MG (LASIX) TAB PO SCH (08:01)
[2019-07-21] MEDS: PANTOPRAZOLE 40 MG (PROTONIX) TAB PO SCH (08:01)
[2019-07-21] MEDS: APIXABAN 2.5 MG (ELIQUIS) TABLET PO SCH ×2 (08:01→20:35)
--- NOTE | 2019-07-21 08:55 | Physical Therapy Daily Note ---
PT Daily Note-Current Subjective Patient reports COLEY, back pain and abdominal pain. RN present. Pain Numeric Pain Scale: 10-Worst Possible Pain Pain Description: Ache, Pressure Comment: FLACC (head,back, abdomen) Mental Status Patient Orientation: Confused Transfers Therapy Code Descriptions/Definitions Functional [place] Measure: 0=Not Assessed/NA 4=Minimal Assistance 1=Total Assistance 5=Supervision or Setup 2=Maximal Assistance 6=Modified [place] 3=Moderate Assistance 7=Complete [place] Therapy Quality Codes: 6 Independent with activity with or without an assistive device 5 Patient requires set up or clean up by helper. Patient completes activity by themselves 4 Supervision or touching assist (CGA). [place] provide cues , steadying assist 3 The helper provides less than half the effort to complete the activity 2 The helper provides more than half the effort to complete the activity 1 Dependent. The helper does all the effort to complete an activity 7 Patient refused to complete or attempt activity 9 The patient did not perform the activity before the current illness or injury 88 Not attempted due to Medical conditions or safety concerns Transfers (B, C, W/C) (FIM): 4 Scootin Sit to/from Stand: 4 Weight Bearing Right Lower Extremity: Right Weight Bearing/Tolerated Left Lower Extremity: Left Weight Bearing/Tolerated Gait Training Gait (FIM): 1 Distance (FIM): 1=up to 49 ft Distance: 48' Gait Level of Assist: 3 Gait Persons Needed: 1 Gait Assistive Device: FWW Patient unable to tolerate ambulation due to uncontrolled pain. Assessment Patient is up in recliner with needs met. Warm blanket placed around shoulders/back and on lap. RN present in room during treatment to issue medication. PT Retirement Goals Retirement Goals PT Retirement Goals Time Frame: Jul 25, 2019 Transfers (B,C,W/C) (FIM): 7 Gait (FIM): 6 Gait distance (FIM): 3=150 ft Gait Level of Assist: 6 Gait Assistive Device: FWW Stairs (FIM): 2 # of Steps: 6 Stairs Level Of Assist: 5 PT Plan Treatment/Plan Treatment Plan: Continue Plan of Care Treatment Plan: Bed Mobility, Education, Functional Activity Phil, Functional Strength, Gait, Safety, Therapeutic Exercise, Transfers Treatment Duration: Jul 25, 2019 Frequency: 6 times per week Estimated Hrs Per Day: .25 hour per day Patient and/or Family Agrees t: Yes Time/GCodes Time In: 801 Time Out: 810 Total Billed Treatment Time: 9 Total Billed Treatment 1 visit FA 9 min LYLE SUAZO PT Jul 21, 2019 08:55
--- NOTE | 2019-07-21 09:12 | NUR ---
Follow up visit with the pt and her son, Aniket. The pt said her collator visited yesterday afternoon and prayed with her as requested. She reports feeling weak and was unable to walk far during her morning therapy. She said she struggles with sciatic pain, which makes her nauseated.
[2019-07-21 11:33] LABS: BILIRUBIN,URINE NEGATIVE (NEGATIVE); CLARITY,URINE CLEAR; COLOR,URINE YELLOW; GLUCOSE, URINE (UA) NEGATIVE (NEGATIVE); KETONES,URINE 1+ (NEGATIVE); LEUKOCYTE ESTERASE ,URINE NEGATIVE (NEGATIVE); NITRITE,URINE NEGATIVE (NEGATIVE); PH,URINE 6 (5-9); PROTEIN,URINE 3+ (NEGATIVE); UROBILINOGEN,URINE NORMAL (NORMAL)
[2019-07-21 11:43] LABS: BACTERIA,URINE NEGATIVE /HPF
[2019-07-21 12:00] VITALS: BP 105/66
--- NOTE | 2019-07-21 15:12 | NUR ---
Received referral from,Dr.Chad Dias concerning pt's possible continued care in a Shelter facility. Me with pt and her son Aniket Jackson and explained that since pt is currently considered Observation status she would lack the eligibility to have Medicare coverage in a Skilled facility. She could receive care in a Skilled facility but would be responsible for Room and Board charges. Both pt and son agreed that placement was not feasible. Both agree that pt is very weak and having difficulty with endurance,stability and safety at home. They were interested in being considered for possible admission to our Acute Rehab Units o she could regain previous functional level. Acute rehab evaluating and will provide decision.
[2019-07-21 15:33] VITALS: BP 120/74
--- NOTE | 2019-07-21 17:28 | NUR ---
Pt seems to sleep a lot during the day but son describes pt as a "night owl" as is known to do house work and shop at [employer] in the middle of the night. Both pt and son are hoping pt can be admitted to Acute Rehab to assist her in regaining strength and former function level. If pt not accepted, son is willing to assume her care full-time either at his home or hers. Two sisters live considerable distance and unable to assist with day to day care. One lives in [place] and the other in [place], [place]. If pt returns home with son's care both are willing to accept Home Health Care with Nursing and Physical Therapy, This addiction social worker won't be available tomorrow to assist but Jen OBRIEN and our Social Work Student,Linda can assist. Pt does have a Fornt Wheel walker at home.
[2019-07-21 20:14] VITALS: BP 149/77
[2019-07-22 00:50] VITALS: BP 144/72
[2019-07-22] MEDS: HYDROcodone/APAP 5 MG/325 MG (LORTAB) TAB PO PRN ×5 (01:28→22:11)
[2019-07-22 04:00] VITALS: BP 152/71
[2019-07-22] MEDS: FOLIC ACID 1 MG TAB PO SCH (06:26)
[2019-07-22] MEDS: KCL 10 MEQ TAB (MICRO K) PO SCH ×2 (06:26→18:10)
[2019-07-22 08:00] VITALS: BP 132/76
[2019-07-22] MEDS: meTOprolol TARTRATE 50 MG (LOPRESSOR) TAB PO SCH ×2 (08:41→20:24)
[2019-07-22] MEDS: PANTOPRAZOLE 40 MG (PROTONIX) TAB PO SCH (08:41)
[2019-07-22] MEDS: DILTIAZEM 180 MG (CARDIZEM CD) CAP PO SCH (08:41)
[2019-07-22] MEDS: APIXABAN 2.5 MG (ELIQUIS) TABLET PO SCH ×2 (08:41→20:24)
[2019-07-22] MEDS: FUROSEMIDE 20 MG (LASIX) TAB PO SCH (08:41)
[2019-07-22] MEDS: ASPIRIN E.C. 81 MG (ECOTRIN) TAB PO SCH (08:41)
--- NOTE | 2019-07-22 11:40 | NUR ---
IRF Evaluation Order received to evaluate patient for the ARU. Chart review complete and findings discussed with Dr. Lee - patient accepted for admission. Anticipate admission 07/23/19. Dr. Dias notified. Thank you for this referral.
--- NOTE | 2019-07-22 11:57 | Progress Note ---
Subjective Subjective Date Seen by Provider: Jul 22, 2019 Time Seen by Provider: 11:57 78 yo F doing well denies chest pain. Would like to go home and try on clothes to get ready for inpatient rehab. -her biggest issue is her left sciatic pain that radiates down to her left leg. Review of Systems General: No Chills; Fatigue, Malaise, Appetite (poor) HEENT: No Head Aches, No Visual Changes Pulmonary: Dyspnea; No Cough Cardiovascular: Palpitations; No: Chest Pain Gastrointestinal: No: Nausea, Vomiting, Abdominal Pain Genitourinary: No Dysuria Musculoskeletal: No: neck pain Neurological: Weakness Objective Exam Vital Signs Vital Signs Date Time Temp Pulse Resp B/P (MAP) Pulse Ox O2 Delivery O2 Flow Rate FiO2 07/22/19 08:00 98.3 110 20 132/76 (94) 97 Room Air 07/22/19 08:00 Room Air 07/22/19 04:00 99.4 92 20 152/71 (98) 98 Room Air 07/22/19 00:50 99.2 74 20 144/72 (96) 97 Room Air 07/21/19 20:14 99.9 88 20 149/77 (101) 98 Room Air 07/21/19 20:00 Room Air 07/21/19 15:33 99.0 89 18 120/74 (89) 98 Room Air 07/21/19 12:00 98.7 73 20 105/66 (79) 99 Room Air I & O 07/22/19 07:00 Intake Total 1330 ml Output Total 1800 ml Balance -470 ml General Appearance: Anxious, Chronically ill, Mild Distress Eyes: Bilateral Eye Normal Inspection, Bilateral Eye PERRL, Bilateral Eye EOMI HEENT: PERRL/EOMI Neck: Non Tender, Supple Respiratory: Chest Non Tender, Lungs Clear, Normal Breath Sounds Cardiovascular: Other (irregular rhythm, regular rate) Gastrointestinal: Normal Bowel Sounds, Non Tender, Soft Rectal: Deferred Extremity: Normal Inspection, Non Tender, No Calf Tenderness Neurologic/Psychiatric: Alert, Oriented x3, No Motor/Sensory Deficits, Normal Mood/Affect Skin: Warm/Dry Assessment/Plan Assessment/Plan Admission Dx symptomatic anemia atrial fibrillation with RVR Assessment and Plan 07/20/19- no longer in RVR with dialtiazem. Transfusing 2 u pRBC and will recheck hemoglobin. FOBT pending. WBC elevated on admission will recheck. will order PT to walk patient today. -the question of continuing eliquis vs stopping it to be discussed with patient and medical team. -follow up with Dr. Mejía after discharge. 07/21/19- hgb stable, potassium improved. WBC down to 14K. (she was recently placed on prednisone). 07/22/19- UA negative for infection- completed macrobid; Son will get her some clothes to change into. will check cbc, bmp tomorrow. Dispo: will discharge to inpatient rehab on 2nd floor 07/23/19 Problems: (1) Non-small cell carcinoma of lung Assessment & Plan: follows with Dr Yin (2) Anemia of chronic disease Assessment & Plan: baseline hgb is around 9-10 (3) Atrial fibrillation with RVR Assessment & Plan: she is on eliquis (4) Symptomatic anemia Assessment & Plan: s/p 2 u pRBC 07/20/19 (5) Hypokalemia Assessment & Plan: replacing (6) Weakness Assessment & Plan: plan to admit to inpatient rehab to increase her odds of returning home safely. Admission Dx symptomatic anemia atrial fibrillation with RVR Clinical Quality Measures Admission Status Admission Dx symptomatic anemia atrial fibrillation with RVR DVT/VTE Risk/Contraindication: Risk Factor Score Per Nursin RFS Level Per Nursing on Admit: 4+=Very High LUI KRUEGER MD Jul 22, 2019 11:57
[2019-07-22 12:00] VITALS: BP 135/77
--- NOTE | 2019-07-22 13:37 | Physical Therapy Daily Note ---
PT Daily Note-Current Subjective " If I could just get rid of this 'Psychiatric' nerve pain down my left leg" Pt. states this repeatedly. Rates at 7/10 nitza when walking Pain Numeric Pain Scale: 7 Location: Left Location Body Site: Hip Pain Description: Burning Mental Status Patient Orientation: Person, Place, Situation Transfers Therapy Code Descriptions/Definitions Functional [place] Measure: 0=Not Assessed/NA 4=Minimal Assistance 1=Total Assistance 5=Supervision or Setup 2=Maximal Assistance 6=Modified [place] 3=Moderate Assistance 7=Complete [place] Therapy Quality Codes: 6 Independent with activity with or without an assistive device 5 Patient requires set up or clean up by helper. Patient completes activity by themselves 4 Supervision or touching assist (CGA). [place] provide cues , steadying assist 3 The helper provides less than half the effort to complete the activity 2 The helper provides more than half the effort to complete the activity 1 Dependent. The helper does all the effort to complete an activity 7 Patient refused to complete or attempt activity 9 The patient did not perform the activity before the current illness or injury 88 Not attempted due to Medical conditions or safety concerns Transfers (B, C, W/C) (FIM): 5 Scootin Rollin Supine to/from Sit: 6 Sit to/from Stand: 5 Weight Bearing Right Lower Extremity: Right Weight Bearing/Tolerated Left Lower Extremity: Left Weight Bearing/Tolerated Gait Training Gait (FIM): 5 Distance (FIM): 3=150 ft (200) Gait Level of Assist: 5 Gait Persons Needed: 1 Gait Assistive Device: FWW required guidance only, flexed posture, good use of device Exercises Supine Ex: Bridging, Ankle pumps, Rolling, Heel Slides, Short Arc Quads, Scooting, Straight leg raise, Hip abd/add Supine Reps: 12 Treatments indep donned and doffed robe/sweatshirt Assessment Current Status: Good Progress good mobility, c/o left apparent sciatic pain but this did not inhibit gait or TRFs PT Tobacco Sweeper Goals Alf Goals PT Alf Goals Time Frame: Jul 25, 2019 Transfers (B,C,W/C) (FIM): 7 Gait (FIM): 6 Gait distance (FIM): 3=150 ft Gait Level of Assist: 6 Gait Assistive Device: FWW Stairs (FIM): 2 # of Steps: 6 Stairs Level Of Assist: 5 PT Plan Treatment/Plan Treatment Plan: Continue Plan of Care Treatment Plan: Bed Mobility, Education, Functional Activity Phil, Functional Strength, Gait, Safety, Therapeutic Exercise, Transfers Treatment Duration: Jul 25, 2019 Frequency: 6 times per week Estimated Hrs Per Day: .25 hour per day Patient and/or Family Agrees t: Yes Safety Risks/Education Patient Education: Gait Training, Transfer Techniques, Correct Positioning, Disease Process, Safety Issues Teaching Recipient: Patient Teaching Methods: Demonstration, Discussion Response to Teaching: Verbalize Understanding, Return Demonstration, Reinforcement Needed Time/GCodes Time In: 1305 Time Out: 1330 Total Billed Treatment Time: 25 Total Billed Treatment 1,EX10m,GT15m ALICIA BERNABE [employer] Jul 22, 2019 13:37
--- NOTE | 2019-07-22 13:56 | Physical Therapy Daily Note ---
PT Daily Note-Current Subjective Pt. needs much convincing to participate at any level. States she lives in a NH and she can do everything there she needs to do. "No one knows what it feels like to have neuropathy in their feet like I do" "youre trying to trick me by having me do just a little bit more all along" Pain Location: No Pain Reported Comment: pt. c/o nueropathy but does not rate discomfort Mental Status Patient Orientation: Person, Place, Time, Situation Transfers Therapy Code Descriptions/Definitions Functional Riley Measure: 0=Not Assessed/NA 4=Minimal Assistance 1=Total Assistance 5=Supervision or Setup 2=Maximal Assistance 6=Modified Riley 3=Moderate Assistance 7=Complete Riley Therapy Quality Codes: 6 Independent with activity with or without an assistive device 5 Patient requires set up or clean up by helper. Patient completes activity by themselves 4 Supervision or touching assist (CGA). [place] provide cues , steadying assist 3 The helper provides less than half the effort to complete the activity 2 The helper provides more than half the effort to complete the activity 1 Dependent. The helper does all the effort to complete an activity 7 Patient refused to complete or attempt activity 9 The patient did not perform the activity before the current illness or injury 88 Not attempted due to Medical conditions or safety concerns in out bed flat with no rails Mod I Weight Bearing Right Lower Extremity: Right Weight Bearing/Tolerated Left Lower Extremity: Left Weight Bearing/Tolerated Gait Training Gait (FIM): 1 Distance (FIM): 1=up to 49 ft (10ft) Gait Assistive Device: FWW SBA to CGA 10 ft no LOB, would not go further Exercises Supine Ex: Ankle pumps, Quad Set, Rolling, Glut sets, Heel Slides, Straight leg raise, Hip abd/add Supine Reps: 15 Assessment Current Status: Good Progress pt. mostly incooperative, unmotivated but appears she can move well when she conscents to do so PT Detention Goals Pulping Machine Operator Goals PT Pulping Machine Operator Goals Time Frame: Jul 25, 2019 Transfers (B,C,W/C) (FIM): 7 Gait (FIM): 6 Gait distance (FIM): 3=150 ft Gait Level of Assist: 6 Gait Assistive Device: FWW Stairs (FIM): 2 # of Steps: 6 Stairs Level Of Assist: 5 PT Plan Treatment/Plan Treatment Plan: Continue Plan of Care Treatment Plan: Bed Mobility, Education, Functional Activity Phil, Functional Strength, Gait, Safety, Therapeutic Exercise, Transfers Treatment Duration: Jul 25, 2019 Frequency: 6 times per week Estimated Hrs Per Day: .25 hour per day Patient and/or Family Agrees t: Yes Safety Risks/Education Patient Education: Gait Training, Transfer Techniques, Correct Positioning, Disease Process, Safety Issues Teaching Recipient: Patient Teaching Methods: Demonstration, Discussion Response to Teaching: Verbalize Understanding, Return Demonstration, Reinforcement Needed educated pt. on benefits of moving about and positive effects for circulation and lungs etc Time/GCodes Time In: 1335 Time Out: 1358 Total Billed Treatment Time: 23 Total Billed Treatment 1,FA13,EX10 ALICIA BERNABE RESTAURANT BARTENDER Jul 22, 2019 13:56
[2019-07-22 14:22] LABS: BASOPHILS % (AUTO) 0 % (0-10); EOSINOPHILS # (AUTO) 0.2 10^3/uL (0.0-0.3); EOSINOPHILS % (AUTO) 2 % (0-10); HEMATOCRIT 30 % (35-52); HEMOGLOBIN 9.7 G/DL (11.5-16.0); LYMPHOCYTES # (AUTO) 0.4 X 10^3 (1.0-4.0); LYMPHOCYTES % (AUTO) 4 % (12-44); MEAN CORPUSCULAR HEMOGLOBIN 29 PG (25-34); MEAN CORPUSCULAR HGB CONC 32 G/DL (32-36); MEAN CORPUSCULAR VOLUME 89 FL (80-99); MEAN PLATELET VOLUME 9.6 FL (7.4-10.4); MONOCYTES % (AUTO) 10 % (0-12); NEUTROPHILS % (AUTO) 84 % (42-75); PLATELET COUNT 243 10^3/uL (130-400); RED CELL DISTRIBUTION WIDTH 17.3 % (10.0-14.5); WHITE BLOOD COUNT 9.6 10^3/uL (4.3-11.0)
[2019-07-22 14:41] LABS: BUN/CREATININE RATIO 28; CALCIUM 8.1 MG/DL (8.5-10.1); CARBON DIOXIDE 25 MMOL/L (21-32); CHLORIDE 98 MMOL/L (98-107); CREATININE SERUM 0.75 MG/DL (0.60-1.30); GFR ESTIMATED > 60; GLUCOSE 133 MG/DL (70-105); SODIUM 130 MMOL/L (135-145)
[2019-07-22 15:27] LABS: BAND NEUTROPHILS 4 %; BASOPHILS % (MANUAL) 0 %; EOSINOPHILS % (MANUAL) 2 %; LYMPHOCYTES % (MANUAL) 3 %; MONOCYTES % (MANUAL) 3 %; NEUTROPHILS % (MANUAL) 88 %
[2019-07-22 15:28] LABS: ANISOCYTOSIS SLIGHT; ELLIPT/OVALOCYTES SLIGHT; HELMET/BITE CELLS SLIGHT; NUCLEATED RED BLOOD CELLS 1; POIKILOCYTOSIS SLIGHT
[2019-07-22 16:00] VITALS: BP 111/64
[2019-07-23 00:26] VITALS: BP 105/69
[2019-07-23] MEDS: HYDROcodone/APAP 5 MG/325 MG (LORTAB) TAB PO PRN ×2 (05:28→09:37)
[2019-07-23] MEDS: FOLIC ACID 1 MG TAB PO SCH (05:28)
[2019-07-23] MEDS: KCL 10 MEQ TAB (MICRO K) PO SCH (05:28)
[2019-07-23 08:00] VITALS: BP 162/75
[2019-07-23] MEDS: ASPIRIN E.C. 81 MG (ECOTRIN) TAB PO SCH (08:07)
[2019-07-23] MEDS: DILTIAZEM 180 MG (CARDIZEM CD) CAP PO SCH (08:08)
[2019-07-23] MEDS: meTOprolol TARTRATE 50 MG (LOPRESSOR) TAB PO SCH (08:08)
[2019-07-23] MEDS: PANTOPRAZOLE 40 MG (PROTONIX) TAB PO SCH (08:08)
[2019-07-23] MEDS: APIXABAN 2.5 MG (ELIQUIS) TABLET PO SCH (08:08)
[2019-07-23] MEDS: FUROSEMIDE 20 MG (LASIX) TAB PO SCH (08:08)
[2019-07-23] MEDS ORDERED: ACHD5005 PO (08:18)
[2019-07-23] MEDS ORDERED: POTA10TA6 PO (08:18)
--- NOTE | 2019-07-23 08:22 | Discharge Inst-Simple/Standard ---
Discharge Inst-Standard Discharge Medications New, Converted or Re-Newed RX: RX on Chart Patient Instructions/Follow Up Plan of Care/Instructions/FU: Transfer to IRF for her to regain her strength and have a safer return home. I suspect she will be in for less than 14 days. Follow up with [facility] in 2 weeks Follow up with Oncologist Activity as Tolerated: Yes Discharge Diet: Regular Diet Return to The Hospital For: return of symptoms of afib with rvr LUI KRUEGER MD Jul 23, 2019 08:22
--- NOTE | 2019-07-23 08:28 | Discharge Summary ---
Diagnosis/Chief Complaint Date of Admission Jul 19, 2019 at 23:20 Date of Discharge Jul 23, 2019 Admission Diagnosis Admission Diagnosis (1) Non-small cell carcinoma of lung (2) Anemia of chronic disease (3) Atrial fibrillation with RVR - resolved (4) Symptomatic anemia (5) Hypokalemia (6) Weakness Discharge Diagnosis (1) Non-small cell carcinoma of lung (2) Anemia of chronic disease (3) Atrial fibrillation with RVR - resolved (4) Symptomatic anemia (5) Hypokalemia (6) Weakness Reason Hospital Visit 78 yo F admitted for observation last night for atrial fibrillation with RVR likely from her hemoglobin being 7.6. Her baseline hemoglobin appears to be around 9-10. She is currently on chemotherapy every Saturday for metastatic breast cancer. Patient reports her son has been helping her more the last week due to increasing weakness. She reports the last 3 days have been terrible due to weakness and shortness of breath. She was going to try to go to taoism yesterday but did not have the energy. Since she was getting worse she thought she needed to come to the ER. She was given diltiazem orally and IV and her pulse went from >100 to 80s. She is getting 2 units of pRBC for her symptomatic anemia. She reports she is feeling better this AM. She reports dark diarrhea stools that is worsened by the chemotherapy but then she will take antidiarrhea pills for a couple days and have normal bowel movements. Discharge Summary Hospital Course Hospital Course 78 yo female admitted for Afib with RVR and anemia. She quickly improved after receiving diltiazem and 2 units of pRBC. AFib with RVR resolved and her hgb has been holding steady above 9. She is not acutely bleeding and her anemia is attributed to anemia of chronic disease. She does have metastatic nonsmall cell lung cancer and she has been having chemotherapy on Mondays with her oncologist. Given her co-morbidities along with staff and patient's own concerns about returning home alone she would benefit from some inpatient therapies where we can monitor her closer. She could go back into afib with RVR while in therapy; at this time we would consult cardiology. Patient follows with Dr. Cruz. Decision was made to transfer to inpatient rehab to increase her odds of a safe return home and decrease her fall risk. She does have a son that helps when she needs him. Labs Procedures None. Discharge Physical Examination Allergies: Coded Allergies: Penicillins (Unverified Allergy, Mild, RASH, 09/24/10) RUPAL Inhibitors (Verified Allergy, Unknown, HIVES, 12/11/16) atorvastatin (Verified Allergy, Unknown, HIVES, 12/11/16) iodine (Verified Allergy, Unknown, HIVES, 12/11/16) Vitals & I&Os Vital Signs Date Time Temp Pulse Resp B/P (MAP) Pulse Ox O2 Delivery O2 Flow Rate FiO2 07/23/19 08:00 Room Air 07/23/19 08:00 97.8 101 20 162/75 (104) 98 General Appearance: Alert, Oriented X3, Cooperative HEENT: Atraumatic Respiratory: Clear to Auscultation Cardiovascular: Regular Rate (irregular rhythm) Abdominal: Normal Bowel Sounds, Soft Psych/Mental Status: Mental Status NL Discharge Home Medications Reviewed and agree with Discharge Medication list on patient's Discharge In struction sheet Condition at Discharge improved stable Instructions to Patient/Family Please see electronic discharge instructions given to patient. Clinical Quality Measures DVT/VTE Risk/Contraindication: Risk Factor Score Per Nursin RFS Level Per Nursing on Admit: 4+=Very High LUI KRUEGER MD Jul 23, 2019 08:28
[2019-07-24] MEDS ORDERED: HYDR-3812 PO (08:36)
== END 2019-07-23 08:18 ==
LOC: EDUNIT# 20:26 → ER 20:29 → UNDOADMOB 22:35 → 4TH 22:35
PROVIDERS: ADMIT Internal Medicine; ATTEND Internal Medicine
DX: C34.90 Malignant neoplasm of unspecified part of unspecified bronchus or lung (principal); D64.9 Anemia, unspecified; I48.91 Unspecified atrial fibrillation; I11.0 Hypertensive heart disease with heart failure; I50.30 Unspecified diastolic (congestive) heart failure; I25.10 Atherosclerotic heart disease of native coronary artery without angina pectoris; M19.90 Unspecified osteoarthritis, unspecified site; G89.29 Other chronic pain; M54.9 Dorsalgia, unspecified; J44.9 Chronic obstructive pulmonary disease, unspecified; E03.9 Hypothyroidism, unspecified; H26.9 Unspecified cataract; I44.7 Left bundle-branch block, unspecified; F32.9 Major depressive disorder, single episode, unspecified; F41.9 Anxiety disorder, unspecified; F17.210 Nicotine dependence, cigarettes, uncomplicated; Z90.710 Acquired absence of both cervix and uterus; Z79.891 Long term (current) use of opiate analgesic; Z79.52 Long term (current) use of systemic steroids; Z79.899 Other long term (current) drug therapy; Z88.0 Allergy status to penicillin; Z88.8 Allergy status to other drugs, medicaments and biological substances; Z95.0 Presence of cardiac pacemaker; Z90.89 Acquired absence of other organs; Z90.49 Acquired absence of other specified parts of digestive tract
CPT/HCPCS: 36415; 71045; 80048; 80053; 81000; 83735; 83880; 84484; 85007; 85025; 85027; 86850; 86900; 86901; 86920; 93005; 96374; G0378

== ENCOUNTER 2019-07-23 10:20 | Inpatient (IN) | payer MEDICARE ==
[~2019-07-23] VITALS: Ht 160 cm; Wt 55.0 kg
[~2019-07-23 10:20] MED LIST changes: +FOLI1TAB24 PO; +HYDR-3812 PO; +NITR100C10 PO; +POTA10TA6 PO; +PROC10TA10 PO
--- NOTE | 2019-07-23 10:20 | NUR ---
Admitted to room 223, with an admitting diagnosis of debility, on 07-23-2019 [facility] , accompanied by .BILLY FERRARA introduced to surroundings, call light, bed controls, phone, TV, temperature control, lights, meal times, smoking policy, visitor policy, side rail policy, bathrooms and showers. Patient Rights given to patient in the handbook.BILLY FERRARA verbalizes understanding that [facility] is not responsible for the loss or damage to any personal effects or valuables that are kept in the patients posession during their hospitalization. The following Patient Care Plans were discussed with the : Discharge Planning, ,, and . BILLY FERRARA verbalizes understanding of Interdisciplinary Patient Education. Patient and/or family were informed about the Rapid Response Team and its purpose. Patient received Patient Rights Booklet, which includes Privacy Act Statement and Data Collection Information Summary.
[2019-07-23 11:00] VITALS: BP 120/64
--- NOTE | 2019-07-23 11:32 | Physical Therapy Evaluation ---
PT Evaluation-General Medical Diagnosis Admission Date 07/23/2019 Medical Diagnosis: chemotherapy neuropathy Onset Date: Jul 23, 2019 Therapy Diagnosis Therapy Diagnosis: abnormal gait Height/Weight Height (Feet): 5 Height (Inches): 4.00 Weight (Pounds): 131 Weight (Ounces): 0.4 Precautions Precautions/Isolations: Standard Precautions Referral Physician: Rosa Reason for Referral: Evaluation/Treatment Medical History Pertinent Medical History: Atrial Fib, CAD, COPD, Heart Failure, HTN Current History 78 yo F admitted for observation on acute for atrial fibrillation with RVR likely from her hemoglobin being 7.6. She is currently on chemotherapy every Saturday for metastatic breast cancer. Patient reports her son has been helping her more the last week due to increasing weakness. She reports the last few days have been terrible due to weakness and shortness of breath. She was given diltiazem orally and IV and her pulse went from >100 to 80s. She reports dark diarrhea stools that is worsened by the chemotherapy but then she will take antidiarrhea pills for a couple days and have normal bowel movements. Pt transferred to ARU for continued skilled therapy services to increase functional strength and allow her to return home with her son. Social History Home: Multilevel Current Living Status: Children (son) Entry Into Home: Stairs With Railing PT Steps Into Home: 3 PT Steps Inside Home: 12 There are handrails to both sets of stairs. Prior/Core FIM Prior Level of Function Therapy Code Descriptions/Definitions Functional [place] Measure: 0=Not Assessed/NA 4=Minimal Assistance 1=Total Assistance 5=Supervision or Setup 2=Maximal Assistance 6=Modified [place] 3=Moderate Assistance 7=Complete [place] Therapy Quality Codes: 6 Independent with activity with or without an assistive device 5 Patient requires set up or clean up by helper. Patient completes activity by themselves 4 Supervision or touching assist (CGA). [place] provide cues , steadying assist 3 The helper provides less than half the effort to complete the activity 2 The helper provides more than half the effort to complete the activity 1 Dependent. The helper does all the effort to complete an activity 7 Patient refused to complete or attempt activity 9 The patient did not perform the activity before the current illness or injury 88 Not attempted due to Medical conditions or safety concerns Functional Abilities and Goals: Independent: Patient completed the activities by him/herself, with or without an assistive device, with no assistance from a helper. Needed Some Help: Patient needed partial assistance from another person to complete activities. Dependent: A helper completed the activities for the patient. Unknown: Not Applicable: Bed Mobility: 7 Transfers (B,C,W/C) (FIM): 7 Gait: 7 Stairs: 7 Indoor Mobility (Ambulation): Independent Stairs: Independent Pt reports she still drives and often goes to [employer] to walk. Reprots she is able to go up/down her stairs but if she is tired, she sits down and goes on her bottom. PT Evaluation-Current Subjective Pt is agreeable to PT. Reports she plans to return to her son's home at discharge. Pain Numeric Pain Scale: 7 Location: Left Location Body Site: Hip (low back area with radicular symptoms; she did take a pain pill earlier) Pain Description: Ache, Pricking, Burning Comment: She denies pain at rest but has increased pain with walking Objective Patient Orientation: Person, Place, Time, Situation Problem Solving: Fair (pt is a bit impulsive up in her room; tends to abandon her walker) ROM/Strength ROM Lower Extremities WFL Strenght Lower Extremities WFL Integumentary/Posture Integumentary Refer to nursing notes. Bowel Incontinence: No Bladder Incontinence: No Posture rounded shoulders with slight thoracic kyphosis Neuromuscular (Tone, Coordination, Reflexes) intact and functional Sensory Vision: Wears Glasses Hearing: Functional Hand Dominance: Right Sensation Right Lower Extremit: Intact Sensation Left Lower Extremity: Intact Transfers Therapy Code Descriptions/Definitions Functional [place] Measure: 0=Not Assessed/NA 4=Minimal Assistance 1=Total Assistance 5=Supervision or Setup 2=Maximal Assistance 6=Modified [place] 3=Moderate Assistance 7=Complete [place] Therapy Quality Codes: 6 Independent with activity with or without an assistive device 5 Patient requires set up or clean up by helper. Patient completes activity by themselves 4 Supervision or touching assist (CGA). [place] provide cues , steadying assist 3 The helper provides less than half the effort to complete the activity 2 The helper provides more than half the effort to complete the activity 1 Dependent. The helper does all the effort to complete an activity 7 Patient refused to complete or attempt activity 9 The patient did not perform the activity before the current illness or injury 88 Not attempted due to Medical conditions or safety concerns Transfers (B, C, W/C) (FIM): 4 Roll Left to Right (QC): 5 Supine to/from Sit: 5 Sit to/from Stand: 4 (CGA for safety) Sit to Lying (QC): 5 Lying to Sitting/Side of Bed(Q: 5 Sit to Stand (QC): 4 (CGA for safety) Chair/Chf-er-Rwutm Xfer(QC): 4 Car Transfer (QC): 4 Gait Does the Patient Walk?: Yes Mode of Locomotion: Walk Anticipated Mode of Locomotion: Walk Gait (FIM): 4 (CGA for safety) Distance (FIM): 3=150 ft Walk 10 feet (QC): 4 Walk 50 ft with 2 Turns(QC): 4 Walk 150 ft (QC): 4 Walking 10ft/uneven surface-QC: 4 Gait Assistive Device: FWW Comments/Gait Description CGA with gait with skilled cues for safety and to use walker; pt tends to abandon her walker in her room. Wheelchair Training Does the Pt Use a Wheelchair?: No Stairs Stairs (FIM): 2 #of Steps: 4 Level of Assist: 4 1 Step (curb) (QC): 4 4 Steps (QC): 4 12 Steps (QC): 88 pt used B handrails for stairs. Balance Sitting Static: Normal Sitting Dynamic: Normal Standing Static: Fair Standing Dynamic: Fair Picking up an Object (QC): 88 Treatment Education on ARU expectations. Functional transfers throughout treatment wth CGA and skilled cues for safety and sequencing. Gait multiple attempts. Attempted gait with a cane and pt reported increased left hip pain using the cane; returned to using the FWW. Assessment/Needs Pt presents with decreased safety awareness and need for SB-CGa for functional mobiltiy for safety. She has decreased balance that impairs safety with transfers and gait. She will benefit from skilled PT to address safety awareness, functional mobiltiy and allow her to return home with her son at a mod indep level as before. Her son is supportive. Rehab Potential: Good PT Short Term Goals Short Term Goals Time Frame: Jul 30, 2019 Transfers (B,C,W/C) (FIM): 6 Gait (FIM): 5 PT Fpc Goals Fpc Goals PT Fpc Goals Time Frame: Aug 06, 2019 Transfers (B,C,W/C) (FIM): 7 Sit to Lying (QC): 6 Lying-Sitting on Side/Bed(QC): 6 Sit to Stand (QC): 6 Roll Left to Right (QC): 6 Chair/Uff-sd-Upajw Xfer(QC): 6 Car Transfer (QC): 6 Does the Patient Walk: Yes Gait (FIM): 6 Gait distance (FIM): 3=150 ft Walk 10 feet (QC): 6 Walk 10ft-Uneven Surface(QC): 6 Walk 50ft with 2 Turns (QC): 6 Walk 150 ft (QC): 6 Gait Assistive Device: FWW (or least restrictive device) Stairs (FIM): 5 # of Steps: 4 1 Step (curb) (QC): 6 4 Steps (QC): 6 12 Steps (QC): 6 Picking up an Object (QC): 88 PT Plan Problem List Problem List: Activity Tolerance, Functional Strength, Safety, Balance, Gait, Transfer, Bed Mobility Treatment/Plan Treatment Plan: Continue Plan of Care Treatment Plan: Bed Mobility, Education, Functional Activity Phil, Functional Strength, Group Therapy, Gait, Safety, Therapeutic Exercise, Transfers Treatment Duration: Aug 06, 2019 Frequency: At least 5 of 7 days/Wk (IRF) Estimated Hrs Per Day: 1.5 hours per day Patient and/or Family Agrees t: Yes Safety Risks/Education Patient Education: Gait Training, Safety Issues Teaching Recipient: Patient Teaching Methods: Discussion Response to Teaching: Reinforcement Needed Time/GCodes Time In: 1020 Time Out: 1130 Total Billed Treatment Time: 70 Total Billed Treatment visit EVM 15 FA 55 RADHA LASSITER PT Jul 23, 2019 11:32
--- NOTE | 2019-07-23 12:53 | PM&R H&P / Post Admit Assess ---
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 HPI: This is a 78yoWF clinic Pt of Dr. Raciel Dias who presents to the inpatient rehab after presenting to the hospital with severe weakness requiring a blood transfusion and monitoring atrial fibrillation. She is currently being treated for lung cancer at [facility] from Dr. Mejía, of which she quit smoking in the . Apparently her prior level of functioning was fully independent of her ADLs and ambulation with no assistive devices. She will be moving in to her son's house and he has multiple steps which will be worked on aggressively by PT in order for her to regain function in order for her to return to her sons house to live with him at discharge. At this current time Pt feels well, she is breathing well, she is just weak. Her bowels are moving. Source: patient, family, old records Exam Limitations: no limitations Date Seen 07/23/19 Time Seen by a Provider: 13:00 Attending Physician Anita Velasquez Samir M MD Referring Physician Date of Admission Jul 23, 2019 at 10:20 Home Medications & Allergies Home Medications Reviewed patient Home Medication Reconciliation performed by pharmacy medication reconciliations environmental sampling technician and/or nursing. Patients Allergies have been reviewed. Allergies Allergies Coded Allergies Penicillins (Unverified Allergy, Mild, RASH, 09/24/10) RUPAL Inhibitors (Verified Allergy, Unknown, HIVES, 12/11/16) atorvastatin (Verified Allergy, Unknown, HIVES, 12/11/16) iodine (Verified Allergy, Unknown, HIVES, 12/11/16) Past Sfpukiu-Qvatef-Eqrevk Hx Past Med/Social Hx: Reviewed Nursing Past Med/Soc Hx, Reviewed and Corrections made Patient Social History Marrital Status: single Employed/Student: retired Alcohol Use: Denies Use Recreational Drug Use: No Smoking Status: Former Smoker Former Smoker, Quit: Jul 23, 1999 Type Used: Cigarettes 2nd Hand Smoke Exposure: No (quit 20 years ago) Physical Abuse Screen: No Sexual Abuse: No Recent Foreign Travel: No Contact w/other who traveled: No Recent Hopitalizations: Yes (pacemaker placement) Recent Infectious Disease Expo: No Immunizations Up To Date Tetanus Booster (TDap): Unknown Pediatric: Yes Date of Pneumonia Vaccine: Aug 17, 2013 Date of Influenza Vaccine: Sep 07, 2013 Seasonal Allergies Seasonal Allergies: No Past Medical History Surgeries: Cardiac, Gallbladder, Hysterectomy, Lobectomy, Tonsillectomy Currently Using CPAP: No Currently Using BIPAP: No Cardiac: Atrial Fibrillation, Coronary Artery Disease, Hypertension, Palpitations Neurological: TIA : No Reproductive: No Sexually Transmitted Disease: No HIV/AIDS: No Menopausal Genitourinary: Bladder Infection Gastrointestinal: Gall Bladder Disease Musculoskeletal: Arthritis, Chronic Back Pain Endocrine: Hyperthyroidism HEENT: Cataract Cancer: Lung, Breast Did You Recieve Any Treatments: Yes What Type of Treatment Did You: Chemotherapy, Radiation, Surgical Intervention Psychosocial: Anxiety, Depression History of Blood Disorders: No Adverse Reaction to Blood Chamberlain: No Family History Patient reports no known family medical history. No Pertinent Family Hx Mother: 95yo alive and well, sister 71yo alive and well Review of Systems Constitutional: see HPI, weakness EENTM: no symptoms reported Respiratory: dyspnea on exertion Cardiovascular: palpitations Gastrointestinal: constipation, diarrhea Genitourinary: no symptoms reported Musculoskeletal: other (muscle weakness) Skin: no symptoms reported Psychiatric/Neurological: No Symptoms Reported All Other Systems Reviewed Negative Unless Noted: Yes Physical Exam Exam Vital Signs Vital Signs Date Time Temp Pulse Resp B/P (MAP) Pulse Ox O2 Delivery O2 Flow Rate FiO2 07/23/19 20:36 95 Room Air 07/23/19 17:11 96.4 85 16 106/67 (80) Capillary Refill : General Appearance: No Apparent Distress, WD/WN, Chronically ill HEENT: PERRL/EOMI, Normal ENT Inspection, Pharynx Normal, Moist Mucous Membranes Neck: Full Range of Motion, Normal Inspection, Non Tender, Supple Respiratory: Chest Non Tender, Lungs Clear, Normal Breath Sounds, No Accessory Muscle Use, No Respiratory Distress Cardiovascular: No Edema, No Gallop, No JVD, No Murmur, Irregularly Irregular Gastrointestinal: Normal Bowel Sounds, No Organomegaly, No Pulsatile Mass, Non Tender, Soft Back: Normal Inspection, No CVA Tenderness, No Vertebral Tenderness Extremity: Normal Capillary Refill, Normal Inspection, Normal Range of Motion, Non Tender, No Calf Tenderness, No Pedal Edema Neurologic/Psychiatric: Alert, Oriented x3, No Motor/Sensory Deficits, Normal Mood/Affect, Motor Weakness (generalized legs greater than arms) Skin: Normal Color, Warm/Dry Lymphatic: No Adenopathy Results Results/Procedures Labs Patient resulted labs reviewed. Assessment/Plan Assessment and Plan Assess & Plan/Chief Complaint Plan: Continue meds from 4th floor Monitor BP and HR for RVR Strengthen and work on stairs in order to go home with son Cancer treatment per Dr Mejía IRF protocol (1) Debility (2) Weakness (3) Afib (4) Anemia of chronic disease (5) Non-small cell carcinoma of lung (6) Hypokalemia (7) Diastolic dysfunction Status: Acute (8) Congestive heart failure Status: Acute (9) Anxiety Status: Acute Post Admission Physician Asses Date seen by provider: Jul 23, 2019 Time seen by provider: 13:00 Admisison Dx: (1) Debility The preadmission screen agrees with the post admission assessment that the patient is a good candidate for inpatient rehabilitation. The patient will have a comprehensive program of inpatient rehabilitation with a goal of maximizing level of functional independence prior to discharge home with family. The patient will have PT/OT ninety minutes per day, each discipline, five days a week for gait, strengthening, conditioning, balance, ADLs, any patient/family/caregiver training as necessary. Speech therapy to do cognitive assessment and treat as indicated. Rehabilitation nursing to assist with bowel, bladder, skin, wound care, medication administration, pain management. Supervisor Microwave to assist with discharge planning, community reentry. SCD's for DVT prophylaxis. She appears to be well motivated to participate in three hours of therapy a day. She should be able to tolerate three hours of therapy a day from a medical standpoint. She should benefit from the three hours of therapy a day. She has a reasonable discharge plan, reasonable discharge rehabilitation goals and a supportive family. She has various comorbidities that need to be closely monitored with medications and treatments adjusted on a daily basis as needed. These include: see list Barriers to discharge for this patient who had been independent prior to this are for her to be modified independent to supervision for ADLs and mobility skills prior to discharge home with family, so as to lessen the burden of the caregivers. Risks for this patient include: 1. Fall 2. Fracture 3. DVT 4. Pulmonary embolism 5. Wound infection 6. Skin breakdown 7. Contractures 8. Poorly controlled pain 9. Urinary retention 10. UTI 11. Respiratory infection 12. Aspiration Estimated Length of Stay: 5 days Prognosis: Rehab prognosis appears good for goal of discharge home with family modified independent to supervision for ADLs and mobility skills. ANITA VELASQUEZ DO Jul 23, 2019 12:53
--- NOTE | 2019-07-23 13:15 | Occupational Therapy Eval ---
OT Evaluation-General/PLF Medical Diagnosis Admission Date Jul 23, 2019 at 10:20 Medical Diagnosis: chemotherapy neuropathy Onset Date: Jul 23, 2019 Therapy Diagnosis Therapy Diagnosis: Weakness, Decreased ADL skills Height/Weight Height (Feet): 5 Height (Inches): 3.00 Weight (Pounds): 111 Weight (Ounces): 0.5 Precautions Precautions/Isolations: Fall Prevention, Standard Precautions, Pressure Ulcer Weight Bear Status Weight Bearing Restriction: Weight Bearing/Tolerated Referral Physician: Rosa Referral Reason: Activity Tolerance, Self Care, Evaluation/Treatment, Strengthening/ROM Medical History Pertinent Medical History: Atrial Fib, CAD, COPD, Heart Failure, HTN Additional Medical History Lung CA, lobectomy, 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 Reviewed History: Yes Social History Home: Multilevel (Pt. lives on main level and has to go downstairs to kitchen. States that son cooks for her and brings her food as needed.) Current Living Status: Children (son) Entry Into Home: Stairs With Railing Steps Into Home: 3 Steps Inside Home: 12 ADL-Prior Level of Function Therapy Code Descriptions/Definitions Functional [place] Measure: 0=Not Assessed/NA 4=Minimal Assistance 1=Total Assistance 5=Supervision or Setup 2=Maximal Assistance 6=Modified [place] 3=Moderate Assistance 7=Complete [place] Therapy Quality Codes: 6 Independent with activity with or without an assistive device 5 Patient requires set up or clean up by helper. Patient completes activity by themselves 4 Supervision or touching assist (CGA). [place] provide cues , steadying assist 3 The helper provides less than half the effort to complete the activity 2 The helper provides more than half the effort to complete the activity 1 Dependent. The helper does all the effort to complete an activity 7 Patient refused to complete or attempt activity 9 The patient did not perform the activity before the current illness or injury 88 Not attempted due to Medical conditions or safety concerns Functional Abilities and Goals: Independent: Patient completed the activities by him/herself, with or without an assistive device, with no assistance from a helper. Needed Some Help: Patient needed partial assistance from another person to complete activities. Dependent: A helper completed the activities for the patient. Unknown: Not Applicable: ADL PLOF Comments Prior to becoming ill, pt. states that she was independent with daily tasks. Self Care: Independent Functional Cognition: Unknown DME/Equipment: Bath Chair, Tub/Shower DME/Equipment Comments Pt. states that she usually sits down in the tub to bathe. Has a walker that she does not have to use. Drive Self: Yes OT Current Status Subjective Pt. reports pain in right hip from CA, and pain in left side from UTI. States that she has already had pain meds and does not give a pain level. Appearance Pt. up in chair. Agrees to work with therapy. Mental Status/Objective Patient Orientation: Person, Place, Time, Situation Current Hand Dominance: Right Upper Extremity ROM WFL ADL-Treatment Eating (FIM): 0 Eating (QC): 7 Grooming (FIM): 5 (per pt.) Oral Hygiene (QC): 4 Bathing (FIM): 0 (Pt. has already performed this elsewhere today.) Shower/Bathe Self (QC): 7 Upper Body Dressing (FIM): 5 Upper Body Dressing (QC): 5 Lower Body Dressing (FIM): 5 Lower Body Dressing (QC): 4 On/Off Footwear (QC): 4 Toileting (FIM): 0 Toileting Hygiene (QC): 7 Transfers (B, C, W/C) (FIM): 5 Toilet/Commode Transfer (FIM): 0 Toilet Transfer (QC): 7 Shower Transfer (FIM): 0 Education OT Patient Education: Correct positioning, Modified ADL techniques, Progress toward Goal/Update tx plan, Purpose of tx/functional activities, Reviewed precau tions, Rehab process, Transfer techniques Teaching Recipient: Patient, Family Teaching Methods: Demonstration, Discussion Response to Teaching: Verbalize Understanding, Return Demonstration OT Short Term Goals Short Term Goals Transfers (B,C,W/C) (FIM): 6 1=Demonstrate adherence to instructed precautions during ADL tasks. 2=Patient will verbalize/demonstrate understanding of assistive devices/scott fications for ADL. 3=Patient will improve strength/tolerance for activity to enable patient to perform ADL's. OT Fdc Goals Fdc Goals Time Frame: Aug 06, 2019 Eating (FIM): 6 Eating (QC): 6 Groomin Oral Hygiene (QC): 6 Bathing(FIM): 5 Shower/Bathe Self (QC): 4 Upper Body Dressing(FIM): 6 Upper Body Dressing (QC): 6 Lower Body Dressing(FIM): 6 Lower Body Dressing (QC): 6 On/Off Footwear (QC): 6 Toileting(FIM): 6 Toileting Hygiene (QC): 6 Transfers (B,C,W/C) (FIM): 6 Toilet/Commode Transfer(FIM): 6 Toilet/Commode Transfer (QC): 6 Additional Goals: 1-Demonstrate ADL Tasks, 2-Verbalize Understanding, 3- ImproveStrength/Phil 1=Demonstrate adherence to instructed precautions during ADL tasks. 2=Patient will verbalize/demonstrate understanding of assistive devices/modifications for ADL. 3=Patient will improve strength/tolerance for activity to enable patient to perform ADL's. OT Education/Plan Problem List/Assessment Assessment: Decreased Activ Tolerance, Impaired I ADL's, Impaired Self-Care Skills Discharge Recommendations Plan/Recommendations: Continue POC Therapy Discharge Recommendati: Homemaker Support Treatment Plan/Plan of Care Treatment,Training & Education: Yes Patient would benefit from OT for education, treatment and training to promote independence in ADL's, mobility, safety and/or upper extremity function for ADL's. Plan of Care: ADL Retraining, Functional Mobility, Group Exercise/Act as Ind, UE Funct Exercise/Act Treatment Duration: Aug 06, 2019 Frequency: At least 5 of 7 days/Wk (IRF) Estimated Hrs Per Day: 1.5 hours per day Agreement: Yes Rehab Potential: Good Time/GCodes Start Time: 11:30 Stop Time: 12:10 Total Time Billed (hr/min): 40 Billed Treatment Time 1, EVL x 10minutes, ADL x 30minutes KIMBERLY MARTÍNEZ OT Jul 23, 2019 13:15
--- NOTE | 2019-07-23 13:49 | Physical Therapy Daily Note ---
PT Daily Note-Current Subjective Pt sitting in recliner upon arrival. Pt agrees to PT for walk. Pain Location: No Pain Reported Mental Status Patient Orientation: Person, Place, Time, Situation Transfers Therapy Code Descriptions/Definitions Functional [place] Measure: 0=Not Assessed/NA 4=Minimal Assistance 1=Total Assistance 5=Supervision or Setup 2=Maximal Assistance 6=Modified [place] 3=Moderate Assistance 7=Complete [place] Therapy Quality Codes: 6 Independent with activity with or without an assistive device 5 Patient requires set up or clean up by helper. Patient completes activity by themselves 4 Supervision or touching assist (CGA). [place] provide cues , steadying assist 3 The helper provides less than half the effort to complete the activity 2 The helper provides more than half the effort to complete the activity 1 Dependent. The helper does all the effort to complete an activity 7 Patient refused to complete or attempt activity 9 The patient did not perform the activity before the current illness or injury 88 Not attempted due to Medical conditions or safety concerns Scootin Sit to/from Stand: 5 Sit to Stand (QC): 5 Weight Bearing Full Weight Bearing Full Weight Bearing Gait Training Does the Patient Walk?: Yes Gait (FIM): 5 Distance (FIM): 3=150 ft Distance: 350' Walk 10 feet (QC): 5 Walk 50 ft with 2 Turns(QC): 5 Walk 150 ft (QC): 5 Gait Level of Assist: 5 Gait Persons Needed: 1 Gait Assistive Device: FWW Pt fatigues and needs occasional RB to recover. Wheelchair Training Does the Pt Use a Wheelchair?: No Treatments Pt transfers from recliner and uses restroom. Pt then ambulates in hallway before returning to rest in recliner at end of tx. Pt has all needs met, call light next to pt. OT arrives at end of tx. Assessment Current Status: Good Progress Pt tolerates tx well. PT Short Term Goals Short Term Goals Time Frame: Jul 30, 2019 Transfers (B,C,W/C) (FIM): 6 Gait (FIM): 5 PT Long-Term Goals Long-Term Goals PT Herb Counselor Goals Time Frame: Aug 06, 2019 Transfers (B,C,W/C) (FIM): 7 Sit to Lying (QC): 6 Lying-Sitting on Side/Bed(QC): 6 Sit to Stand (QC): 6 Roll Left to Right (QC): 6 Chair/[id number] Xfer(QC): 6 Car Transfer (QC): 6 Does the Patient Walk: Yes Gait (FIM): 6 Gait distance (FIM): 3=150 ft Walk 10 feet (QC): 6 Walk 10ft-Uneven Surface(QC): 6 Walk 50ft with 2 Turns (QC): 6 Walk 150 ft (QC): 6 Gait Assistive Device: FWW (or least restrictive device) Stairs (FIM): 5 # of Steps: 4 1 Step (curb) (QC): 6 4 Steps (QC): 6 12 Steps (QC): 6 Picking up an Object (QC): 88 PT Plan Problem List Problem List: Activity Tolerance Treatment/Plan Treatment Plan: Continue Plan of Care Treatment Plan: Bed Mobility, Education, Functional Activity Phil, Functional Strength, Group Therapy, Gait, Safety, Therapeutic Exercise, Transfers Treatment Duration: Aug 06, 2019 Frequency: At least 5 of 7 days/Wk (IRF) Estimated Hrs Per Day: 1.5 hours per day Patient and/or Family Agrees t: Yes Safety Risks/Education Patient Education: Gait Training, Transfer Techniques Teaching Recipient: Patient Teaching Methods: Discussion Response to Teaching: Verbalize Understanding Time/GCodes Time In: 1325 Time Out: 1345 Total Billed Treatment Time: 20 Total Billed Treatment 1, GT (20m) JOSSELYN BATES RISK ASSESSOR Jul 23, 2019 13:49
--- NOTE | 2019-07-23 14:39 | Occupational Ther Daily Note ---
OT Current Status-Daily Note Subjective Pt seen in chair, alert and oriented x4. Pt c/o pain in L leg due to sciatic nerve pain rated 7/10 and pain in R hip with no value assigned. Pt stated R hip is fine when seated but L hip continuously is in pain. Pt agreed to OT tx session. Mental Status/Objective Patient Orientation: Normal For Age Therapy Code Descriptions/Definitions Functional [place] Measure: 0=Not Assessed/NA 4=Minimal Assistance 1=Total Assistance 5=Supervision or Setup 2=Maximal Assistance 6=Modified [place] 3=Moderate Assistance 7=Complete [place] ADL-Treatment Therapy Code Descriptions/Definitions Functional [place] Measure: 0=Not Assessed/NA 4=Minimal Assistance 1=Total Assistance 5=Supervision or Setup 2=Maximal Assistance 6=Modified [place] 3=Moderate Assistance 7=Complete [place] Therapy Quality Codes: 6 Independent with activity with or without an assistive device 5 Patient requires set up or clean up by helper. Patient completes activity by themselves 4 Supervision or touching assist (CGA). [place] provide cues , steadying assist 3 The helper provides less than half the effort to complete the activity 2 The helper provides more than half the effort to complete the activity 1 Dependent. The helper does all the effort to complete an activity 7 Patient refused to complete or attempt activity 9 The patient did not perform the activity before the current illness or injury 88 Not attempted due to Medical conditions or safety concerns Lower Body Dressing (FIM): 6 (Pt doffed/ donned shoes with increased time. ) On/Off Footwear (QC): 6 Other Treatment Pt walked with fair+ balance utilizing FWW to therapy gym with SBA. Pt c/o SOB when seated in gym. Pt stated she has experienced SOB at home, limiting ADL/IADL function. Pt educated and return demonstrated on stretches for sciatic nerve to decrease pain during activities. Pt stated sciatic pain has not resolved in 3 weeks. Pt completed abdominal exercises seated on mat- 3 reps of 10 exercises, in order to increase balance and strength. UE exercises focused on back- 3 sets of 15 reps with 1# weight. Pt stated she dances as hobby- pt stood and did the "laly laly" with stand by with good balance and no SOB for ~45 seconds. Pt sat EOM and addressed goals, pt desires to increase endurance, decrease pain in L leg, and improve posture. Pt stood 30 sec at FWW, c/o SOB; pt completed arm bike exercises seated for intervals of 1, 2, and 3 minutes with no c/o SOB. Pt returned to room with FWW and good balance, c/o SOB when seated. Pt educated on proper sitting techniques using FWW for safety. 02 sats taken: seated after 1 minute rest break (100% 02, HR 77 BPM), standing for 1 minute (100% 02, HR 84BPM), and after walking ~50 feet (100% 02, 100 BPM HR). Pt left with NETWORK ENGINEER ADMINISTRATOR at end of session, all needs met. Education OT Patient Education: Correct positioning, Energy conservation, Exercise program, Purpose of tx/functional activities, Rehab process, Safety issues, Transfer techniques Teaching Recipient: Patient Teaching Methods: Demonstration, Discussion Response to Teaching: Verbalize Understanding, Return Demonstration OT Short Term Goals Short Term Goals Transfers (B,C,W/C) (FIM): 6 1=Demonstrate adherence to instructed precautions during ADL tasks. 2=Patient will verbalize/demonstrate understanding of assistive devices/modifications for ADL. 3=Patient will improve strength/tolerance for activity to enable patient to perform ADL's. OT Shelter Goals Shelter Goals Time Frame: Aug 06, 2019 Eating (FIM): 6 Eating (QC): 6 Groomin Oral Hygiene (QC): 6 Bathing(FIM): 5 Shower/Bathe Self (QC): 4 Upper Body Dressing(FIM): 6 Upper Body Dressing (QC): 6 Lower Body Dressing(FIM): 6 Lower Body Dressing (QC): 6 On/Off Footwear (QC): 6 Toileting(FIM): 6 Toileting Hygiene (QC): 6 Transfers (B,C,W/C) (FIM): 6 Toilet/Commode Transfer(FIM): 6 Toilet/Commode Transfer (QC): 6 Additional Goals: 1-Demonstrate ADL Tasks, 2-Verbalize Understanding, 3- ImproveStrength/Phil 1=Demonstrate adherence to instructed precautions during ADL tasks. 2=Patient will verbalize/demonstrate understanding of assistive devices/modifications for ADL. 3=Patient will improve strength/tolerance for activity to enable patient to perform ADL's. OT Education/Plan Problem List/Assessment Assessment: Decreased Activ Tolerance, Decreased Safety Aware, Decreased UE Strength, Impaired Funct Balance, Impaired I ADL's, Impaired Self-Care Skills Discharge Recommendations Plan/Recommendations: Continue POC Treatment Plan/Plan of Care Treatment,Training & Education: Yes Patient would benefit from OT for education, treatment and training to promote independence in ADL's, mobility, safety and/or upper extremity function for ADL's. Plan of Care: ADL Retraining, Functional Mobility, Group Exercise/Act as Ind, UE Funct Exercise/Act Treatment Duration: Aug 06, 2019 Frequency: At least 5 of 7 days/Wk (IRF) Estimated Hrs Per Day: 1.5 hours per day Agreement: Yes Rehab Potential: Good Time/GCodes Start Time: 13:30 Stop Time: 14:20 Total Time Billed (hr/min): 50 Billed Treatment Time 1 EX 45 ADL 5 MARIZA NARVAEZ OTR Jul 23, 2019 14:38
--- NOTE | 2019-07-23 14:45 | ST Cognitive Linguistic Eval ---
Speech Evaluation-General Medical Diagnosis chemotherapy neuropathy Onset Date: Jul 23, 2019 Therapy Diagnosis Therapy Diagnosis: Cognitive-communication Precautions Precautions: Fall Precautions/Isolations: Fall Prevention, Standard Precautions, Pressure Ulcer Referral Referring Physician: Dr. 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 She was independent for some of her daily needs with assistance from her son as needed. Subjective The patient was pleasant and cooperative with the cognitive assessment. Language Eval: Auditory Comprehends Simple Yes/No Ques: Functional Indent/Objects [place]: Functional Ident/Pics in [place]: Functional Follows 1-Step Commands: Functional Follows Complex Directions: Mild Follows General Conversations: Functional Language Eval: Verbal Language Completes Spontaneous Greeting: Functional Produces Auto, Serial Info: Functional Imitates Simple Words/Phrases: Functional Word Finding: Functional Requests Basic Needs: Functional States Basic Personal Info: Functional Expresses Complex Ideas: Mild Objective Cognitive Domain Attention: WNL Memory: Moderate Problem Solving: Mild Executive Functions: Mild Visuospatial Skills: WNL Composite Severity Rating: Mild Clock Drawing Severity Rating: Mild Score: 21/30 Range: Mild Neurocognitive Disorder Objective Formal/Standardized Tests [facility] Mental Status ([facility]) Results 30, Mild Neurocognitive Disorder Oral Motor/Speech Production Within Functional Limits Impression The patient is a pleasant 78 year old female who was admitted to the ARU due to debility. The patient was assessed for her cognitive function level with the [facility]. She scored a 21/30 which falls in the MNCD range. The patient will receive skilled ST for cognitive function with focus on improving memory, problem solving and safety awareness. Communication/Social Cognition Comprehension: 6 Expression: 6 Social Interaction: 7 Problem Solvin Memory: 4 Speech Patient Assess Expression of Ideas/Wants: Exhibits (3) Understanding Verbal Content: Usually Understands (3) Brief Interview-Mental Status: Yes Repetition of Three Words: Three (3) Temporal Orientation: Year: Correct (3) Temporal Orientation: Month: Accurate within 5 days(2) Temporal Orientation: Day: Correct (1) Recall : Wear to say "Sock": Yes,after cueing (1) Recall : Color: No, could not recall (0) Recall : Bed: No, could not recall (0) Memory/Recall Ability: Current season, That he or she is in a hsp/hsp unit Speech Short Term Goals Short Term Goals Short Term Goals 1) The patient will complete memory tasks related to her daily needs at 90% or greater. 2) The patient will complete problem solving tasks related to her daily needs at 90% or greater. 3) The patient will complete safety awareness tasks related to her daily needs at 90% or greater. Speech Usp Goals Needle Setter Goals The patient will improve cognitive function so that she may return safely. Speech-Plan Patient/Family Goals Patient/Family Goals: The patient plans on returning to her son's home post rehab. Treatment Plan Speech Therapy Treatment Plan: Continue Plan of Care The patient will receive skilled ST services for improving cognitive function related to safety and independence. Treatment Duration: Aug 05, 2019 Frequency: 5 times per week Estimated Hrs Per Day: .5 hour per day Rehab Potential: Good Barriers to Learning: Patient has mild cognitive deficits Pt/Family Agrees to Plan: Yes Safety Risks/Education Teaching Recipient: Patient Teaching Methods: Discussion Response to Teaching: Verbalize Understanding Education Topics Provided: Safety within her room and utilization of the call light as needed. Time Speech Therapy Time In: 14:20 Speech Therapy Time Out: 14:35 Total Billed Time: 15 Billed Treatment Time 1, JEREMÍAS Diane Jul 23, 2019 14:45
[2019-07-23 17:11] VITALS: BP 106/67
[2019-07-23] MEDS: HYDROcodone/APAP 5 MG/325 MG (LORTAB) TAB PO PRN ×2 (17:37→22:29)
[2019-07-23] MEDS ORDERED: PROCHLORPERAZINE 10 MG TAB (COMPAZINE) PO PRN (18:45)
[2019-07-23] MEDS ORDERED: NON-FORMULARY MEDICATION 1 EA EA (Budesonide/Formoterol Fumarate (Symbicort 160-4.5 Mcg In INH PRN (18:45)
[2019-07-23] MEDS ORDERED: RT-ALBUTEROL SULF 2.5 MG/3 ML PRE-MIX VIAL IH PRN (18:45)
[2019-07-23] MEDS ORDERED: FUROSEMIDE 20 MG (LASIX) TAB PO PRN (18:45)
[2019-07-23] MEDS ORDERED: NON-FORMULARY MEDICATION 1 EA EA (Metoprolol Tartrate 100 MG) PO SCH (21:00)
[2019-07-23] MEDS ORDERED: NON-FORMULARY MEDICATION 1 EA EA (Diltiazem HCl (Cartia Xt) 180 MG) PO SCH (21:00)
[2019-07-23] MEDS: APIXABAN 2.5 MG (ELIQUIS) TABLET PO SCH (21:04)
[2019-07-23] MEDS: DILTIAZEM 180 MG (CARDIZEM CD) CAP PO SCH (21:05)
[2019-07-23] MEDS: meTOprolol TARTRATE 50 MG (LOPRESSOR) TAB PO SCH (21:05)
[2019-07-23] MEDS ORDERED: HYDROcodone/APAP 5 MG/325 MG (LORTAB) TAB PO PRN (22:00)
[2019-07-23] MEDS ORDERED: diphenhydrAMINE 25 MG TAB (BENADRYL) PO PRN (22:00)
[2019-07-23] MEDS ORDERED: CALCIUM CARBONATE 500 MG (TUMS) TAB.CHEW PO PRN (22:00)
[2019-07-23] MEDS ORDERED: ALPRAZolam 0.25 MG (XANAX) TAB PO PRN (22:00)
[2019-07-23] MEDS ORDERED: MELATONIN 3 MG TABLET PO PRN (22:00)
[2019-07-23] MEDS ORDERED: DOCUSATE SODIUM 100 MG (COLACE) CAP PO PRN (22:00)
[2019-07-23] MEDS ORDERED: ONDANSETRON 4 MG/2 ML (SDV) Z0FRAN IVP PRN (22:00)
[2019-07-24] MEDS: KCL 10 MEQ TAB (MICRO K) PO SCH ×2 (05:48→16:12)
[2019-07-24] MEDS: HYDROcodone/APAP 5 MG/325 MG (LORTAB) TAB PO PRN ×3 (05:50→20:39)
[2019-07-24 06:07] LABS: BASOPHILS % (AUTO) 0 % (0-10); EOSINOPHILS # (AUTO) 0.3 10^3/uL (0.0-0.3); EOSINOPHILS % (AUTO) 3 % (0-10); HEMATOCRIT 27 % (35-52); HEMOGLOBIN 8.8 G/DL (11.5-16.0); LYMPHOCYTES # (AUTO) 1.1 X 10^3 (1.0-4.0); LYMPHOCYTES % (AUTO) 9 % (12-44); MEAN CORPUSCULAR HEMOGLOBIN 29 PG (25-34); MEAN CORPUSCULAR HGB CONC 32 G/DL (32-36); MEAN CORPUSCULAR VOLUME 90 FL (80-99); MEAN PLATELET VOLUME 9.5 FL (7.4-10.4); MONOCYTES # (AUTO) 1.4 X 10^3 (0.0-1.0); MONOCYTES % (AUTO) 12 % (0-12); NEUTROPHILS # (AUTO) 8.6 X 10^3 (1.8-7.8); NEUTROPHILS % (AUTO) 76 % (42-75); PLATELET COUNT 259 10^3/uL (130-400); RED CELL DISTRIBUTION WIDTH 17.1 % (10.0-14.5); WHITE BLOOD COUNT 11.4 10^3/uL (4.3-11.0)
[2019-07-24 06:29] LABS: ALANINE AMINOTRANSFERASE 13 U/L (0-55); ALKALINE PHOSPHATASE 118 U/L (40-136); BILIRUBIN,TOTAL 0.3 MG/DL (0.1-1.0); BUN/CREATININE RATIO 38; CALCIUM 8.7 MG/DL (8.5-10.1); CARBON DIOXIDE 19 MMOL/L (21-32); CHLORIDE 101 MMOL/L (98-107); CREATININE SERUM 0.74 MG/DL (0.60-1.30); GFR ESTIMATED > 60; GLUCOSE 108 MG/DL (70-105); POTASSIUM 4.1 MMOL/L (3.6-5.0); SODIUM 133 MMOL/L (135-145); TOTAL PROTEIN 5.4 GM/DL (6.4-8.2)
[2019-07-24 06:43] VITALS: BP 128/71
[2019-07-24 08:00] VITALS: BP 99/58
[2019-07-24] MEDS ORDERED: HYDR-3812 PO (08:36)
--- NOTE | 2019-07-24 08:37 | NUR ---
UPDATED MED REC TO THE LIST OF MEDICATIONS REPORTED UPON ADMISSION TO 4TH FLOOR. THE FOLLOWING CHANGES WERE MADE WHEN THE PATIENT DISCHARGED TO REHAB THAT ARE NOT CURRENTLY REFLECTED ON THE HOME MED REC: START TAKING: POTASSIUM 10MEQ BID STOP TAKING: NITROFURANTOIN MONO/MAC 100MG BID 7 DAYS PICKED UP 07-13-19 (I DID NOT PUT THIS BACK ON THE MED REC AT THIS TIME)
--- NOTE | 2019-07-24 09:01 | Occupational Ther Daily Note ---
OT Current Status-Daily Note Subjective Pt alert, lying in bed. Pt anxious about taking shower and kept saying that she was told that there were some girls going to be in to help take a shower this morning. Pt agrees to therapy. Pt c/o SOA, nausea and dizziness throughout therapy, reported to nrsg. Mental Status/Objective Patient Orientation: Person, Place, Time, Situation Therapy Code Descriptions/Definitions Functional [place] Measure: 0=Not Assessed/NA 4=Minimal Assistance 1=Total Assistance 5=Supervision or Setup 2=Maximal Assistance 6=Modified [place] 3=Moderate Assistance 7=Complete [place] ADL-Treatment Pt tends to abandon walker during therapy session. Discussed with pt on using walker for safety and support, making sure pt understood to use call light to request assistance to get up. Pt would chavez to where she wanted to go then need to lay down for recovery break. Pt would leave walker to retrieve clothing, no LOB noted, with close SBA. 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 Therapy Code Descriptions/Definitions Functional [place] Measure: 0=Not Assessed/NA 4=Minimal Assistance 1=Total Assistance 5=Supervision or Setup 2=Maximal Assistance 6=Modified [place] 3=Moderate Assistance 7=Complete [place] Therapy Quality Codes: 6 Independent with activity with or without an assistive device 5 Patient requires set up or clean up by helper. Patient completes activity by themselves 4 Supervision or touching assist (CGA). [place] provide cues , steadying assist 3 The helper provides less than half the effort to complete the activity 2 The helper provides more than half the effort to complete the activity 1 Dependent. The helper does all the effort to complete an activity 7 Patient refused to complete or attempt activity 9 The patient did not perform the activity before the current illness or injury 88 Not attempted due to Medical conditions or safety concerns Grooming (FIM): 4 (Pt brushed hair sitting in room. Pt brushed teeth at sink, CGA ) Oral Hygiene (QC): 4 Bathing (FIM): 5 (Pt able to wash, rinse, and dry self, supervision. ) Bathing Location: L Arm, R Arm, L Upper Leg, R Upper Leg, L Lower Leg (including foot), R Lower Leg (including foot), Chest, Abdomen, Buttocks, Perineal Area Shower/Bathe Self (QC): 4 Upper Body (FIM): 5 (Pt able to don/doff bra and shirt by self. Supervision. ) Upper Body Dressing (QC): 4 Lower Body Dressing (FIM): 5 (Pt able to don/doff underwear, pants, socks, and shoes by self. Supervision. ) Lower Body Dressing (QC): 4 On/Off Footwear (QC): 4 Toileting (FIM): 5 (As charted per nrsg, pt is SBA for toileting.) Toileting Hygiene (QC): 4 Transfers (B, C, W/C) (FIM): 4 (Pt requires verbal cues to use walker and to slow down. CGA. ) Toilet/Commode Transfer (FIM): 5 (As charted per nrsg, pt is SBA for toilet transfers using FWW and grabbars.) Toilet Transfer (QC): 4 Shower Transfer(FIM): 4 (Pt required FWW, grab bar, hand held shower head, and shower bench. ) Other Treatment Pt ambulated self using FWW to therapy gym. Pt became nauseous and needed rest break. Pt ambulated back to room using FWW. Pt lying in bed, call light and phone in reach. All needs met. OT Short Term Goals Short Term Goals Transfers (B,C,W/C) (FIM): 6 1=Demonstrate adherence to instructed precautions during ADL tasks. 2=Patient will verbalize/demonstrate understanding of assistive devices/modifications for ADL. 3=Patient will improve strength/tolerance for activity to enable patient to perform ADL's. OT Longterm Goals Longterm Goals Time Frame: Aug 06, 2019 Eating (FIM): 6 Eating (QC): 6 Groomin Oral Hygiene (QC): 6 Bathing(FIM): 5 Shower/Bathe Self (QC): 4 Upper Body Dressing(FIM): 6 Upper Body Dressing (QC): 6 Lower Body Dressing(FIM): 6 Lower Body Dressing (QC): 6 On/Off Footwear (QC): 6 Toileting(FIM): 6 Toileting Hygiene (QC): 6 Transfers (B,C,W/C) (FIM): 6 Toilet/Commode Transfer(FIM): 6 Toilet/Commode Transfer (QC): 6 Additional Goals: 1-Demonstrate ADL Tasks, 2-Verbalize Understanding, 3-ImproveStrength/Phil 1=Demonstrate adherence to instructed precautions during ADL tasks. 2=Patient will verbalize/demonstrate understanding of assistive devices/modifications for ADL. 3=Patient will improve strength/tolerance for activity to enable patient to perform ADL's. OT Education/Plan Problem List/Assessment Assessment: Decreased Activ Tolerance, Decreased Safety Aware, Impaired Cognition, Impaired Funct Balance, Impaired Self-Care Skills Discharge Recommendations Plan/Recommendations: Continue POC Treatment Plan/Plan of Care Patient would benefit from OT for education, treatment and training to promote independence in ADL's, mobility, safety and/or upper extremity function for ADL's. Plan of Care: ADL Retraining, Functional Mobility, Group Exercise/Act as Ind, UE Funct Exercise/Act Treatment Duration: Aug 06, 2019 Frequency: At least 5 of 7 days/Wk (IRF) Estimated Hrs Per Day: 1.5 hours per day Agreement: Yes Rehab Potential: Good Time/GCodes Start Time: 08:00 Stop Time: 09:00 Total Time Billed (hr/min): 60 Billed Treatment Time 1 visit-ADL 4 (60 min) RADHA WITT Jul 24, 2019 09:01
[2019-07-24 09:30] VITALS: BP 110/69
--- NOTE | 2019-07-24 09:32 | PM&R Progress Note ---
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 HPI: This is a 78yoWF clinic Pt of Dr. Raciel Dias who presents to the inpatient rehab after presenting to the hospital with severe weakness requiring a blood transfusion and monitoring atrial fibrillation. She is currently being treated for lung cancer at [facility] from Dr. Mejía, of which she quit smoking in the . Apparently her prior level of functioning was fully independent of her ADLs and ambulation with no assistive devices. She will be moving in to her son's house and he has multiple steps which will be worked on aggressively by PT in order for her to regain function in order for her to return to her sons house to live with him at discharge. At this current time Pt feels well, she is breathing well, she is just weak. Her bowels are moving. Subjective/Events-last exam Patient having a really good day except for headache that really put her in a dark room just a few minutes ago Hemoglobin remained stable at 8.8 considering her chemotherapy maintenance Sodium level 133 Pain is overall okay Still short of breath when ambulating Had a bowel movement yesterday Conferred with RN Check meds and labs Reviewed therapy notes Tried to reassure the patient Cardiology consultation will be initiated for atrial fibrillation since she was on Cardizem twice daily at home Review of Systems General: Fatigue Pulmonary: Dyspnea Neurological: Weakness, Numbness, Incoordination Objective Exam Vital Signs Vital Signs Date Time Temp Pulse Resp B/P (MAP) Pulse Ox O2 Delivery O2 Flow Rate FiO2 07/24/19 09:00 Room Air 07/24/19 07:58 98 07/24/19 06:43 98.2 74 16 128/71 (90) Capillary Refill : General Appearance: No Apparent Distress, WD/WN, Chronically ill HEENT: PERRL/EOMI, Normal ENT Inspection, Pharynx Normal, Moist Mucous Membra eliud Neck: Full Range of Motion, Normal Inspection, Non Tender, Supple Respiratory: Chest Non Tender, Lungs Clear, Normal Breath Sounds, No Accessory Muscle Use, No Respiratory Distress Cardiovascular: No Edema, No Gallop, No JVD, No Murmur, Irregularly Irregular Gastrointestinal: Normal Bowel Sounds, No Organomegaly, No Pulsatile Mass, Non Tender, Soft Back: Normal Inspection, No CVA Tenderness, No Vertebral Tenderness Extremity: Normal Capillary Refill, Normal Inspection, Normal Range of Motion, Non Tender, No Calf Tenderness, No Pedal Edema Neurologic/Psychiatric: Alert, Oriented x3, No Motor/Sensory Deficits, Normal Mood/Affect, Motor Weakness (generalized legs greater than arms) Skin: Normal Color, Warm/Dry Lymphatic: No Adenopathy Results/Procedures Lab Laboratory Tests 07/24/19 06:00 Patient resulted labs reviewed. FIM Transfers Therapy Code Descriptions/Definitions Functional [place] Measure: 0=Not Assessed/NA 4=Minimal Assistance 1=Total Assistance 5=Supervision or Setup 2=Maximal Assistance 6=Modified [place] 3=Moderate Assistance 7=Complete [place] Therapy Quality Codes: 6 Independent with activity with or without an assistive device 5 Patient requires set up or clean up by helper. Patient completes activity by themselves 4 Supervision or touching assist (CGA). [place] provide cues , steadying assist 3 The helper provides less than half the effort to complete the activity 2 The helper provides more than half the effort to complete the activity 1 Dependent. The helper does all the effort to complete an activity 7 Patient refused to complete or attempt activity 9 The patient did not perform the activity before the current illness or injury 88 Not attempted due to Medical conditions or safety concerns Transfers (B, C, W/C) (FIM): 4 (Pt requires verbal cues to use walker and to slow down. CGA. ) Scootin Roll Left to Right (QC): 5 Supine to/from Sit: 5 Sit to/from Stand: 5 Sit to Lying (QC): 5 Sit to Stand (QC): 5 Chair/Opt-ho-Dnara Xfer(QC): 4 Car Transfer (QC): 4 Gait Training Does the Patient Walk?: Yes Gait (FIM): 5 Distance (FIM): 3=150 ft Distance: 350' Walk 10 feet (QC): 5 Walk 50 ft with 2 Turns(QC): 5 Walk 150 ft (QC): 5 Walking 10ft/uneven surface-QC: 4 Gait Level of Assist: 5 Gait Persons Needed: 1 Gait Assistive Device: FWW Wheelchair Training Does the Pt Use a Wheelchair?: No Stair Training Stairs (FIM): 2 #of Steps: 4 1 Step (curb) (QC): 4 4 Steps (QC): 4 12 Steps (QC): 88 Level of Assist: 4 Balance Picking up an Object (QC): 88 Mental Status/Objective Comprehension: 6 Expression: 6 Social Interaction: 7 Problem Solvin Memory: 4 ADL-Treatment Feedin Eating (QC): 7 Groomin (Pt brushed hair sitting in room. Pt brushed teeth at sink, CGA ) Oral Hygiene (QC): 4 Bathin (Pt able to wash, rinse, and dry self, supervision. ) Bathing Location: L Arm, R Arm, L Upper Leg, R Upper Leg, L Lower Leg (including foot), R Lower Leg (including foot), Chest, Abdomen, Buttocks, Perineal Area Shower/Bathe Self (QC): 4 Upper Extremity Dressin (Pt able to don/doff bra and shirt by self. Supervision. ) Upper Body Dressing (QC): 4 Lower Extremity Dressin (Pt able to don/doff underwear, pants, socks, and shoes by self. Supervision. ) Lower Body Dressing (QC): 4 On/Off Footwear (QC): 4 Toiletin Toileting Hygiene (QC): 7 Toilet/Commode Transfer: 0 Toilet Transfer (QC): 7 Shower: 4 (Pt required FWW, grab bar, hand held shower head, and shower bench. ) Assessment/Plan Assessment and Plan Assess & Plan/Chief Complaint Plan: Continue meds from 4th floor Monitor BP and HR for RVR Strengthen and work on stairs in order to go home with son Cancer treatment per Dr Mejía IRF protocol Cardiology consultation is appreciated Monitor hgb and sodium level (1) Debility (2) Atrial fibrillation with RVR (3) Congestive heart failure Status: Acute (4) Hypokalemia (5) Anemia of chronic disease (6) Weakness (7) Non-small cell carcinoma of lung (8) Diastolic dysfunction Status: Acute (9) Afib MARIA GUADALUPE VELASQUEZ DO Jul 24, 2019 09:32
--- NOTE | 2019-07-24 09:32 | Individualized Plan of Care ---
Individualized Plan of Care Rehab Nursing IPOC Order Admission Date Jul 23, 2019 at 10:20 Current Orders Orders Admission Order(Inpt,Obs,Sdc) (07/23/19 10:00) Vital Signs: Per Unit Policy ( 08,16,00 (07/23/19 10:00) Exercise Equipment Repair Technician-Inpt Rehab Con (07/23/19 10:00) Rehab Nursing Orders-Ipoc (07/23/19 10:00) Physical Therapy Rehab Orders (07/23/19 10:00) Occupational Therapy Rehab Ord (07/23/19 10:00) Speech Therapy Rehab Orders (07/23/19 10:00) Intake & Output 06,14,22 (07/23/19 10:00) Precautions (Aru) (07/23/19 10:00) Weekly Weight (Lbs) WEEK (07/23/19 10:00) Rehab-Intensity Of Therapy (07/23/19 10:00) Initiate Admission Nursing Pro .admission (07/23/19 10:00) Initiate Admission Nursing Pro .admission (07/23/19 10:00) Sodium 2g (2000 Mg) (07/23/19 Lunch) Transfer - Bed/Room/Location (07/23/19 10:20) Patient Visit (07/23/19 ) Pt Eval Moderate Complexity (07/23/19 ) Functional Activities, Ea 15 (07/23/19 ) Patient Visit (07/23/19 ) Gait Training, Ea 15 Min (07/23/19 ) Patient Visit (07/23/19 ) Speech Sound Lang Comp (07/23/19 ) Hydrocodone/Apap 5/325 Tablet (Lortab 5 (07/23/19 17:30) Potassium Chloride (Tablet) (Klor Con Ta (07/24/19 07:00) Albuterol Pre-Mix Nebs (Rt) (Proventil (07/23/19 18:45) Apixaban Tablet (Eliquis Tablet) (07/23/19 21:00) Aspirin Enteric Coated Tablet (Ecotrin T (07/24/19 09:00) Folic Acid Tablet (Folic Acid Tablet) (07/24/19 09:00) Furosemide Tablet (Lasix Tablet) (07/24/19 09:00) Furosemide Tablet (Lasix Tablet) (07/23/19 18:45) Prochlorperazine Tablet (Compazine Table (07/23/19 18:45) (Nf) Budesonide/Formoterol Fumarate (Sym (07/23/19 18:45) (Nf) Diltiazem Hcl (Cartia Xt) (07/23/19 21:00) (Nf) Metoprolol Tartrate (07/23/19 21:00) Fluticasone/Salmeterol Common (Advair 11 (07/23/19 18:45) Metoprolol Tartrate (Ir) Tab (Lopressor (07/23/19 21:00) Diltiazem Cd 24 Hr Capsule (Cardizem Cd (07/23/19 21:00) Cbc With Automated Diff (07/24/19 06:00) Comprehensive Metabolic Panel (07/24/19 06:00) Acetaminophen Tablet (Tylenol Tablet) (07/23/19 22:00) Alprazolam Tablet (Xanax Tablet) (07/23/19 22:00) Calcium Carbonate Chew Tablet (Antacid C (07/23/19 22:00) Diphenhydramine Tablet (Benadryl Tablet) (07/23/19 22:00) Docusate Sodium Capsule (Colace Capsule) (07/23/19 22:00) Hydrocodone/Apap 5/325 Tablet (Lortab 5 (07/23/19 22:00) Melatonin Tablet (Melatonin Tablet) (07/23/19 22:00) Ondansetron Injection (Zofran Injectio (07/23/19 22:00) Ondansetron Oral Dissolve Tab (Zofran (07/23/19 22:00) Senna S Tablet (Senokot S Tablet) (07/24/19 09:00) Pantoprazole Tablet (Protonix Tablet) (07/25/19 09:00) Consult Cardiology (07/24/19 11:30) Echo W Doppler/Color Flow (07/24/19 12:37) Ekg Tracing (07/24/19 12:37) Sodium Chloride Flush (Catheter Flush Sy (07/24/19 14:00) Sodium Chloride Flush (Catheter Flush Sy (07/24/19 14:00) Patient Visit (07/24/19 ) Functional Activities, Ea 15 (07/24/19 ) Exercise Therap, Ea 15 Min (07/24/19 ) Gait Training, Ea 15 Min (07/24/19 ) Cbc No Diff (07/25/19 05:00) Basic Metabolic Panel (07/25/19 05:00) Magnesium (07/25/19 05:00) Patient Visit (07/24/19 ) Treat. Speech/Lang/Voice (07/24/19 ) Rehab Nursing Orders: Ongoing Assess. of Cognitive Status, Ongoing Assess. of Function Status, Bladder Management, Bowel Management, Disease Management & Educaiton, DVT Prophylaxis, Fall Prevention, Fluid/Electrolyte/Nutrition Mgmt, Medication Management & Education, Management of Risks & Complications, Management of Skin Intergrity, Nutrition Management, Pain Management, Patient/Family Support, Safety Management Intensity of Therapy to be met Patient to be seen: Min.3h per day/5 of 7d PT IPOC Problem List: Activity Tolerance Treatment Plan: Continue Plan of Care Bed Mobility, Education, Functional Activity Phil, Functional Strength, Group Therapy, Gait, Safety, Therapeutic Exercise, Transfers Treatment Duration: Aug 06, 2019 Frequency: At least 5 of 7 days/Wk (IRF) Estimated Hrs Per Day: 1.5 hours per day OT IPOC Problems: Decreased Activ Tolerance, Decreased Safety Aware, Decreased UE Strength, Impaired Funct Balance, Impaired I ADL's, Impaired Self-Care Skills OT Treatment, Training and Edu: Yes Plan of Care: ADL Retraining, Functional Mobility, Group Exercise/Act as Ind, UE Funct Exercise/Act Treatment Duration: Aug 06, 2019 Frequency: At least 5 of 7 days/Wk (IRF) Estimated Hrs Per Day: 1.[address] IPOC Speech Therapy Treatment Plan: Continue Plan of Care Treatment Duration: Aug 05, 2019 Frequency: 5 times per week Estimated Hrs Per Day: .5 hour per day Exercise Equipment Repair Technician/Case Mgmt Exercise Equipment Repair Technician/Case Managemen: Discharge Planning Dietitian/Library Director Dietitian/Library Director to monitor nutritional status and make changes and/or recommendations as needed and work with speech pathology on dietary upgrades as the occur. Physician IPOC Medical Issues being managed closely and that require the 24 hour availability of a physician: Recent atrial fibrillation with RVR will require cardiology consultation and telemetry monitoring and monitoring shortness of breath with hypoxia due to lung cancer. Brief Synthesis of Preadmission Screen, Post-Admission Evaluation, and Therapy Evaluations: Physical therapy will focus on ambulation and using shortness of breath in addition to fall prevention in addition to stairclimbing Occupational Therapy will help regain independence with ADLs Speech therapy will evaluate for cognitive therapy Medical Prognosis: Good Anticipated Length of Stay: 7 days MARIA GUADALUPE VELASQUEZ DO Jul 24, 2019 09:32
[2019-07-24] MEDS: FOLIC ACID 1 MG TAB PO SCH (09:35)
[2019-07-24] MEDS: DILTIAZEM 180 MG (CARDIZEM CD) CAP PO SCH ×2 (09:35→20:38)
[2019-07-24] MEDS: meTOprolol TARTRATE 50 MG (LOPRESSOR) TAB PO SCH ×2 (09:35→20:38)
[2019-07-24] MEDS: FUROSEMIDE 20 MG (LASIX) TAB PO SCH (09:36)
[2019-07-24] MEDS: ASPIRIN E.C. 81 MG (ECOTRIN) TAB PO SCH (09:36)
[2019-07-24] MEDS: APIXABAN 2.5 MG (ELIQUIS) TABLET PO SCH ×2 (09:36→20:38)
[2019-07-24] MEDS: SENNA W/DOCUSATE (SENOKOT S) TABLET PO SCH ×2 (09:37→20:39)
--- NOTE | 2019-07-24 12:01 | Physical Therapy Daily Note ---
PT Daily Note-Current Subjective Pt. in bed and states she has had so much diarrhea and is still having "psychiatric pain" down her left leg. Pt. agrees to Rx as she can tolerate Pain Numeric Pain Scale: 4 Location: Left Location Body Site: Hip (and calf) Comment: after stretches pt. states radicular pain is gone Mental Status Patient Orientation: Person, Place, Time, Situation Transfers Therapy Code Descriptions/Definitions Functional [place] Measure: 0=Not Assessed/NA 4=Minimal Assistance 1=Total Assistance 5=Supervision or Setup 2=Maximal Assistance 6=Modified [place] 3=Moderate Assistance 7=Complete [place] Therapy Quality Codes: 6 Independent with activity with or without an assistive device 5 Patient requires set up or clean up by helper. Patient completes activity by themselves 4 Supervision or touching assist (CGA). [place] provide cues , steadying assist 3 The helper provides less than half the effort to complete the activity 2 The helper provides more than half the effort to complete the activity 1 Dependent. The helper does all the effort to complete an activity 7 Patient refused to complete or attempt activity 9 The patient did not perform the activity before the current illness or injury 88 Not attempted due to Medical conditions or safety concerns Transfers (B, C, W/C) (FIM): 6 Scootin Rollin Supine to/from Sit: 6 Sit to/from Stand: 6 Bed to/from Chair: 6 Weight Bearing Full Weight Bearing Full Weight Bearing Gait Training Does the Patient Walk?: Yes Gait (FIM): 2 Distance (FIM): 5=974-30 ft (125x2) Gait Level of Assist: 4 Gait Persons Needed: 1 Gait Assistive Device: FWW no LOB, needs instruction for safe use of AD. pt. c/o SOB and HR increased however all was checked and fine : BP113/70, HR87, O2sats 98% Exercises Supine Ex: Bridging, Ankle pumps, Quad Set, Rolling, Glut sets, Heel Slides, Short Arc Quads, Scooting, Straight leg raise, Hip abd/add Supine Reps: 15 Treatments toileted with lg diarrhea BM, changed LE clothes in sitting and donned brief. Assessment Current Status: Good Progress probable that anxiety limits participation at times, PT Short Term Goals Short Term Goals Time Frame: Jul 30, 2019 Transfers (B,C,W/C) (FIM): 6 Gait (FIM): 5 PT Training And Development Director Goals Training And Development Director Goals PT Longterm Goals Time Frame: Aug 06, 2019 Transfers (B,C,W/C) (FIM): 7 Sit to Lying (QC): 6 Lying-Sitting on Side/Bed(QC): 6 Sit to Stand (QC): 6 Roll Left to Right (QC): 6 Chair/Zmm-xo-Ducfx Xfer(QC): 6 Car Transfer (QC): 6 Does the Patient Walk: Yes Gait (FIM): 6 Gait distance (FIM): 3=150 ft Walk 10 feet (QC): 6 Walk 10ft-Uneven Surface(QC): 6 Walk 50ft with 2 Turns (QC): 6 Walk 150 ft (QC): 6 Gait Assistive Device: FWW (or least restrictive device) Stairs (FIM): 5 # of Steps: 4 1 Step (curb) (QC): 6 4 Steps (QC): 6 12 Steps (QC): 6 Picking up an Object (QC): 88 PT Plan Treatment/Plan Treatment Plan: Continue Plan of Care Treatment Plan: Bed Mobility, Education, Functional Activity Phil, Functional Strength, Group Therapy, Gait, Safety, Therapeutic Exercise, Transfers Treatment Duration: Aug 06, 2019 Frequency: At least 5 of 7 days/Wk (IRF) Estimated Hrs Per Day: 1.5 hours per day Patient and/or Family Agrees t: Yes Safety Risks/Education Patient Education: Gait Training, Transfer Techniques, Correct Positioning, Disease Process, Safety Issues Teaching Recipient: Patient Teaching Methods: Demonstration, Discussion Response to Teaching: Verbalize Understanding, Return Demonstration, Reinforcement Needed Time/GCodes Time In: 1100 Time Out: 1200 Total Billed Treatment Time: 60 Total Billed Treatment 1,FA30m,EX15m,GT15m ALICIA BERNABE OBSTETRICS/GYNECOLOGY NURSE Jul 24, 2019 12:01
--- NOTE | 2019-07-24 13:00 | NUR ---
[facility] REQUESTED DAY PASS TO TAKE MOTHER TO [facility] ON SATURDAY. DR. VELASQUEZ DENIED DUE TO NEEDING TO MONITOR AFIB THIS WEEKEND.
--- NOTE | 2019-07-24 13:23 | Consultation-Cardiology ---
HPI-Cardiology Cardiology Consultation: Date of Consultation 07/24/19 Time Seen by a Provider: 14:10 Date of Admission 07-24-19 Attending Physician Anita Lee DO Admitting Physician Eduardo Mejía MD Consulting Physician Alayna Cruz MD HPI: Chief Complaint: Chronic a-fib Ms. Munson is a 78 year old female admitted to [facility] for strengthening prior to being discharged home with her son. She reports prior to admission she was having blood in her urine, hematuria and note bleeds. She has had no further incidents since her admission. She is currently undergoing chemotherapy for javier ng cancer at [facility] in [place]. She denies any c/o CP, palpitations, syncope, near syncope or LE swelling. Review of Systems-Cardiology Review of Systems Constitutional: No chills, No fever; malaise Eyes: No vision change Ears/Nose/Throat: As described under HPI, epistaxis; No recent hearing loss Respiratory: As described under HPI Cardiovascular: As described under HPI Gastrointestinal: As described under HPI Genitourinary: hematuria Musculoskeletal: no symptoms reported Skin: No rash on exposed areas, No ulcerations on exposed areas Psychiatric/Neurological: No focal weakness, No syncope Hematologic: easy bleeding, easy bruising All Other Systems Reviewed Negative Unless Noted: Yes [id number] Hx Patient Social History Marrital Status: single Employed/Student: retired Alcohol Use: Denies Use Recreational Drug Use: No Smoking Status: Former Smoker Former smoker/When Quit: Mar 15, 1982 Type Used: Cigarettes 2nd Hand Smoke Exposure: No (quit 20 years ago) Recent Foreign Travel: No Recent Infectious Disease Expo: No Physical Abuse Screen: No Sexual Abuse: No Immunizations Up To Date Tetanus Booster (TDap): Unknown Date of Pneumonia Vaccine: Aug 17, 2013 Date of Influenza Vaccine: Sep 07, 2013 Past Medical History PMH As described under Assessment. Family Medical History Family History: Patient reports no known family medical history. Allergies and Home Medications Allergies Coded Allergies: Penicillins (Unverified Allergy, Mild, RASH, 09/24/10) RUPAL Inhibitors (Verified Allergy, Unknown, HIVES, 12/11/16) atorvastatin (Verified Allergy, Unknown, HIVES, 12/11/16) iodine (Verified Allergy, Unknown, HIVES, 12/11/16) Home Medications Albuterol Sulfate 18 Gm Hfa.aer.ad, 2 PUFF IH Q4H PRN for SHORTNESS OF BREATH, (Reported) Apixaban 2.5 Mg Tablet, 2.5 MG PO BID, (Reported) Aspirin 81 Mg Tablet.dr, 81 MG PO DAILY, (Reported) Budesonide/Formoterol Fumarate 10.2 Gm Hfa.aer.ad, 2 PUFF INH BID PRN for SHORTNESS OF BREATH, (Reported) LAST FILLED 04-07-2019 #1 INHALER Diltiazem HCl 180 Mg Cap.er.24h, 180 MG PO BID, (Reported) Folic Acid 1 Mg Tablet, 1 MG PO DAILY, (Reported) Furosemide 20 Mg Tablet, 20 MG PO DAILY, (Reported) Furosemide 20 Mg Tablet, 20 MG PO HS PRN for SWELLING , (Reported) Hydrocodone/Acetaminophen 1 Each Tablet, 1 TAB PO Q4H PRN for PAIN-MODERATE, (Reported) Metoprolol Tartrate 100 Mg Tablet, 100 MG PO BID, (Reported) Prochlorperazine Maleate 10 Mg Tablet, 10 MG PO Q6H PRN for NAUSEA/VOMITING-4TH LINE, (Reported) Patient Home Medication List Home Medication List Reviewed: Yes Physical Exam-Cardiology Physical Exam Vital Signs/I&O 07/28/19 07/28/19 07/28/19 05:55 06:42 09:10 Temp 97.7 Pulse 74 78 Resp 18 B/P (MAP) 111/65 (80) 104/46 (65) Pulse Ox 98 96 O2 Delivery Room Air Room Air Capillary Refill : Constitutional: AAO x 3, well-developed, well-nourished HEENT: PERRL, hearing is well preserved, oral hygience is good Neck: No carotid bruit; carotid pulses are 2 + bilaterally Respiratory: No accessory muscle use, No respiratory distress; chest expansion is symmetric, chest is bilaterally symmetric, lungs clear to auscultation Cardiovascular: irregularly irregular; No JVD; S1 and S2 Gastrointestinal: No tender; soft, round, audible bowel sounds Rectal: deferred Extremities: no lower extremity edema bilateral Neurologic/Psychiatric: grossly intact, power is 5/5 both on sides Skin: No rash on exposed areas, No ulcerations on exposed areas Data Review Labs Laboratory Tests 07/28/19 00:41: Stool Occult Blood Immunoassay POSITIVEH 07/28/19 06:55: White Blood Count 15.4H, Red Blood Count 3.06L, Hemoglobin 8.5#L, Hematocrit 26L , Mean Corpuscular Volume 86, Mean Corpuscular Hemoglobin 28, Mean Corpuscular Hemoglobin Concent 32, Red Cell Distribution Width 20.5H, Platelet Count 334, Mean Platelet Volume 9.7, Neutrophils (%) (Auto) 81H, Lymphocytes (%) (Auto) 8L, Monocytes (%) (Auto) 9, Eosinophils (%) (Auto) 2, Basophils (%) (Auto) 0, Neutrophils # (Auto) 12.6H, Lymphocytes # (Auto) 1.2, Monocytes # (Auto) 1.4H, Eosinophils # (Auto) 0.3, Basophils # (Auto) 0.0, Neutrophils % (Manual) 84, Lymphocytes % (Manual) 4, Monocytes % (Manual) 11, Eosinophils % (Manual) 1, Basophils % (Manual) 0, Band Neutrophils 0, Anisocytosis MODERATE, Elliptocytes SLIGHT, Sodium Level 130L, Potassium Level 5.1H, Chloride Level 100, Carbon Dioxide Level 21, Anion Gap 9, Blood Urea Nitrogen 19H, Creatinine 0.72, Estimat Glomerular Filtration Rate > 60, BUN/Creatinine Ratio 26, Glucose Level 98, Calcium Level 8.2L A/P-Cardiology Assessment/Admission Diagnosis Anemia of undetermined etiology - being managed by medical services 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 A-fib with RVR at time of admission - currently controlled Thryroid goiter: Thyroid u/s of 04/21/17: Multiple bilateral thyroid nodules predominately solid and showed varying degrees of elements of intralesional cystic degeneration. Their multiplicity and appearance is most suggestive of multiple adenomas and goiterous disease. The dominant mass in the lower pole of the right lobe shows some lobulation of its fairly well-defined borders as well as some coarse intralesional calcifications Coronary artery disease, moderate in the left coronary system and moderate to moderately severe in the right coronary system on cardiac catheterization of 08/10/2013. MPI of 04/23/17 did not show any significant ischemia and LVEF was normal. Last echo of 12/08/18: LVEF 55-60%, PASP 30 mmHg mmHg, mild MR H/o diastolic congestive heart failure which currently appears compensated. Hypertension with left ventricular hypertrophy Hypertension, labile. History of R lung wedge resection for non-small cell carcinoma in March [address] Mccord at [facility]. The patient is following with Dr Mejía of the Oncology services at [facility] History of hyperlipidemia being treated with statin therapy. Left bundle branch block. 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 We will give low dose d/t weight less than 60kg and continued anemia of which source is unclear Anemia of undetermined etiology being managed by medical services. Advise further work up to determine source of bleeding and that source be treated. Monitor lab closely Further recs will be based on her hospital course We would like to thank medical services for this consult Clinical Quality Measures DVT/VTE Risk/Contraindication: Risk Factor Score Per Nursin RFS Level Per Nursing on Admit: 4+=Very High MARIZA BAEZ Jul 24, 2019 13:23
[2019-07-24] MEDS ORDERED: CATHETER FLUSH 10 ML SYR IV PRN (14:00)
--- NOTE | 2019-07-24 14:00 | NUR ---
EKG AND ECHO HAVE BEEN DONE. DR. OLIVO WAS NOTIFIED OF CONSULT AT 1230.
[2019-07-24] MEDS: CATHETER FLUSH 10 ML SYR IV SCH ×2 (14:42→20:39)
--- NOTE | 2019-07-24 14:49 | Therapy Group Daily Note ---
Therapy Daily Group Note Patient Education Topic Home Safety, Fall Prevention, Home Safety, Exercises Exercises LE Seated Exercise, UE Exercise Session Ratio (pt:therapist): 4:1 Goal of Session: Education on ARU Expectations, Energy Conservation Tech., Home Safety Strategies, UE/LE Strengthing Goal Met for this Session: Yes Pt Benefit of Group: Contributions to Others, F/U Use of Strategies @Home, Increased Functional Safety, Increased Functional Strength, Improved Cognition, Recognition of Peers, Socialization Other/Notes Pt ambulated to [facility] for OT group. Group consisted of introductions (name and first car driven), socialization, home safety, and ARU expectations. Pt introduced self appropriately and actively listened to peers. Pt acknowledged understanding of educational topics of home safety consisting of Spinnakrdy game with categories on fall prevention, kitchen safety, bathroom safety, home modifications and mobile home park manager. pt engaged in session by listing appropriate answers to the question and providing discussion on ways they stay safe in their own house. Pt completed UE/LE exercises within group session. Pt listed one thing learned in today's group session, stating having adequate lighting in home is important.. After therapy, pt seated in recliner with call light/phone in reach. All needs met in room. Start Time: 13:00 Stop Time: 14:15 Total Billed Treatment Time: 75 Total Billed Treatment 1, GRP ORLANDO SPEARS OT Jul 24, 2019 14:49
--- NOTE | 2019-07-24 15:35 | Speech Therapy Daily Note ---
Speech Daily Progress Note Subjective Date Seen by Provider: Jul 24, 2019 Time Seen by Provider: 00:15 The patient had just finished a cardio test when I entered the room. Objective The patient completed verbally presented questions related to her daily needs with 80% accuracy given min to mod cues or repetitions. Assessment Assessment Current Status: Fair Progress Treatment Plan Continue Plan of Care Communication Comprehension: 6 Expression: 6 Social Cognition Social Interaction: 7 Problem Solvin Memory: 4 Speech Short Term Goals Short Term Goals Short Term Goals 1) The patient will complete memory tasks related to her daily needs at 90% or greater. 2) The patient will complete problem solving tasks related to her daily needs at 90% or greater. 3) The patient will complete safety awareness tasks related to her daily needs at 90% or greater. Speech Criminal Investigative Agent Goals Fpc Goals The patient will improve cognitive function so that she may return safely. Speech-Plan Patient/Family Goals Patient/Family Goals: The patient plans on returning home with family upon her discharge from rehab. Treatment Plan Speech Therapy Treatment Plan: Continue Plan of Care The patient was tired from all the therapy today. Treatment Duration: Aug 05, 2019 Frequency: 5 times per week Estimated Hrs Per Day: .5 hour per day Rehab Potential: Good Barriers to Learning: Patient is undergoing chemo treatments, cognitive deficits Pt/Family Agrees to Plan: Yes Safety Risks/Education Teaching Recipient: Patient Teaching Methods: Discussion Response to Teaching: Verbalize Understanding Education Topics Provided: Continued safety within her room Time Speech Therapy Time In: 15:15 Speech Therapy Time Out: 15:30 Total Billed Time: 15 Billed Treatment Time 1CARLY BETH[address]IA ST Jul 24, 2019 15:35
--- NOTE | 2019-07-24 15:49 | NUR ---
LIQUID HYDROGEN PLANT OPERATOR met with patient to complete initial assessment. Patient was alert and oriented and agreeable to assessment. 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 Nazario of [facility]. Prior to hospitalization patient resided alone in an apartment in [place], [place]; however, she intends to reside with her son Jitendra at discharge. Patient reports Jitendra's home has 3 steps at the entrance and 12 steps within the home all with railing. Patient can utilize the main level as needed. She reports independence with ambulation and ADLs; however, does possess a walker to utilize when feeling weak. Patient identifies son, Jitendra as primary contact at [phone] and daughterFarhana of [place], [place] at [phone] as secondary contact. PCP identified as Dr. Raciel Dias, fish filleter as Dr. Edy bach and hat presser as Dr. Slater. Insurance verified as Medicare. Patient reports previously having [place] Medicaid; however, this has lapsed and patient reapplied proximally one year ago. LIQUID HYDROGEN PLANT OPERATOR will assist patient in checking status of Medicaid. LIQUID HYDROGEN PLANT OPERATOR reviewed typical ARU length of stay and weekly team conferences. Patient originally requested day pass on Saturday; however, she continues to feel weak and unsteady with complaints of dizziness and pain, LIQUID HYDROGEN PLANT OPERATOR suggested the pass be canceled. Patient is agreeable to this. LIQUID HYDROGEN PLANT OPERATOR will continue to follow for additional needs.
--- NOTE | 2019-07-24 15:58 | Consultation-Cardiology ---
HPI-Cardiology Cardiology Consultation: Date of Consultation 07/24/19 Time Seen by a Provider: 15:30 Date of Admission Attending Physician Anita Lee DO Admitting Physician Eduardo Mejía MD Consulting Physician JIM OLIVO MD, MA, FACP, FACC, [facility], CCDS Physician requesting consult: Dr Lee HPI: Chief Complaint: Reason for consultation: A Fib HPI Ms. Munson is a 78 year old female admitted to [facility] for strengthening prior to being discharged home with her son. She reports prior to admission she was havi ng blood in her urine, hematuria and note bleeds. She has had no further incidents since her admission. She is currently undergoing chemotherapy for lung cancer at [facility] in [place]. She denies any c/o CP, palpitations, syncope, near syncope or LE swelling. Review of Systems-Cardiology Review of Systems Constitutional: No chills, No fever; malaise Eyes: No vision change Ears/Nose/Throat: As described under HPI, epistaxis; No recent hearing loss Respiratory: As described under HPI Cardiovascular: As described under HPI Gastrointestinal: As described under HPI Genitourinary: hematuria Musculoskeletal: no symptoms reported Skin: No rash on exposed areas, No ulcerations on exposed areas Psychiatric/Neurological: No focal weakness, No syncope Hematologic: easy bleeding, easy bruising All Other Systems Reviewed Negative Unless Noted: Yes [id number] Hx Patient Social History Marrital Status: single Employed/Student: retired Alcohol Use: Denies Use Recreational Drug Use: No Smoking Status: Former Smoker Former smoker/When Quit: Mar 15, 1982 Type Used: Cigarettes 2nd Hand Smoke Exposure: No (quit 20 years ago) Recent Foreign Travel: No Recent Infectious Disease Expo: No Physical Abuse Screen: No Sexual Abuse: No Immunizations Up To Date Tetanus Booster (TDap): Unknown Date of Pneumonia Vaccine: Aug 17, 2013 Date of Influenza Vaccine: Sep 07, 2013 Past Medical History PMH As described under Assessment. Family Medical History Family History: Patient reports no known family medical history. Allergies and Home Medications Allergies Coded Allergies: Penicillins (Unverified Allergy, Mild, RASH, 09/24/10) RUPAL Inhibitors (Verified Allergy, Unknown, HIVES, 12/11/16) atorvastatin (Verified Allergy, Unknown, HIVES, 12/11/16) iodine (Verified Allergy, Unknown, HIVES, 12/11/16) Home Medications Albuterol Sulfate 18 Gm Hfa.aer.ad, 2 PUFF IH Q4H PRN for SHORTNESS OF BREATH, (Reported) Apixaban 2.5 Mg Tablet, 2.5 MG PO BID, (Reported) Aspirin 81 Mg Tablet.dr, 81 MG PO DAILY, (Reported) Budesonide/Formoterol Fumarate 10.2 Gm Hfa.aer.ad, 2 PUFF INH BID PRN for S HORTNESS OF BREATH, (Reported) LAST FILLED 04-07-2019 #1 INHALER Diltiazem HCl 180 Mg Cap.er.24h, 180 MG PO BID, (Reported) Folic Acid 1 Mg Tablet, 1 MG PO DAILY, (Reported) Furosemide 20 Mg Tablet, 20 MG PO DAILY, (Reported) Furosemide 20 Mg Tablet, 20 MG PO HS PRN for SWELLING , (Reported) Hydrocodone/Acetaminophen 1 Each Tablet, 1 TAB PO Q4H PRN for PAIN-MODERATE, (Reported) Metoprolol Tartrate 100 Mg Tablet, 100 MG PO BID, (Reported) Prochlorperazine Maleate 10 Mg Tablet, 10 MG PO Q6H PRN for NAUSEA/VOMITING-4TH LINE, (Reported) Patient Home Medication List Home Medication List Reviewed: Yes Physical Exam-Cardiology Physical Exam Vital Signs/I&O 07/24/19 07/24/19 07/24/19 06:43 07:58 09:00 Temp 98.2 Pulse 74 Resp 16 B/P (MAP) 128/71 (90) Pulse Ox 95 98 O2 Delivery Room Air Room Air Room Air 07/24/19 00:00 Intake Total 500 ml Balance 500 ml Capillary Refill : Constitutional: AAO x 3, well-developed, well-nourished HEENT: PERRL, hearing is well preserved, oral hygience is good Neck: No carotid bruit; carotid pulses are 2 + bilaterally Respiratory: No accessory muscle use, No respiratory distress; chest expansion is symmetric, chest is bilaterally symmetric, lungs clear to auscultation Cardiovascular: irregularly irregular; No JVD; S1 and S2 Gastrointestinal: No tender; soft, round, audible bowel sounds Rectal: deferred Extremities: no lower extremity edema bilateral Neurologic/Psychiatric: grossly intact, power is 5/5 both on sides Skin: No rash on exposed areas, No ulcerations on exposed areas Data Review Labs Laboratory Tests 07/24/19 06:00: White Blood Count 11.4H, Red Blood Count 3.03L, Hemoglobin 8.8L, Hematocrit 27L, Mean Corpuscular Volume 90, Mean Corpuscular Hemoglobin 29, Mean Corpuscular Hemoglobin Concent 32, Red Cell Distribution Width 17.1H, Platelet Count 259, Mean Platelet Volume 9.5, Neutrophils (%) (Auto) 76H, Lymphocytes (%) (Auto) 9L, Monocytes (%) (Auto) 12, Eosinophils (%) (Auto) 3, Basophils (%) (Auto) 0, Neutrophils # (Auto) 8.6H, Lymphocytes # (Auto) 1.1, Monocytes # (Auto) 1.4H, Eosinophils # (Auto) 0.3, Basophils # (Auto) 0.0, Sodium Level 133L, Potassium Level 4.1, Chloride Level 101, Carbon Dioxide Level 19L, Anion Gap 13, Blood Urea Nitrogen 28H, Creatinine 0.74, Estimat Glomerular Filtration Rate > 60, BUN/Creatinine Ratio 38, Glucose Level 108H, Calcium Level 8.7, Corrected Calcium 9.5, Total Bilirubin 0.3, Aspartate Amino Transf (AST/SGOT) 12, Alanine Aminotransferase (ALT/SGPT) 13, Alkaline Phosphatase 118, Total Protein 5.4L, Albumin 3.0L Laboratory Tests 07/24/19 06:00 A/P-Cardiology Assessment/Admission Diagnosis Anemia of undetermined etiology - being managed by medical services 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 A-fib with RVR at time of admission - currently controlled Thryroid goiter: Thyroid u/s of 04/21/17: Multiple bilateral thyroid nodules predominately solid and showed varying degrees of elements of intralesional cystic degeneration. Their multiplicity and appearance is most suggestive of multiple adenomas and goiterous disease. The dominant mass in the lower pole of the right lobe shows some lobulation of its fairly well-defined borders as well as some coarse intralesional calcifications Coronary artery disease, moderate in the left coronary system and moderate to moderately severe in the right coronary system on cardiac catheterization of 08/10/2013. MPI of 04/23/17 did not show any significant ischemia and LVEF was normal. Last echo of 12/08/18: LVEF 55-60%, PASP 30 mmHg mmHg, mild MR H/o diastolic congestive heart failure which currently appears compensated. Hypertension with left ventricular hypertrophy Hypertension, labile. History of R lung wedge resection for non-small cell carcinoma in March [address] Mccord at [facility]. The patient is following with Dr Mejía of the Oncology services at [facility] History of hyperlipidemia being treated with statin therapy. Left bundle branch block. 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 We will give low dose d/t weight less than 60kg and continued anemia of which source is unclear * Anemia of undetermined etiology being managed by medical services. Advise further work up to determine source of bleeding and that source be treated. * Monitor lab closely * Dr Kim covering Card Svce over the weekend. Please call if needed Clinical Quality Measures DVT/VTE Risk/Contraindication: Risk Factor Score Per Nursin RFS Level Per Nursing on Admit: 4+=Very High JIM OLIVO MD FACP FAC CCDS Jul 24, 2019 15:58
[2019-07-24 17:02] VITALS: BP 107/67
[2019-07-24 20:37] VITALS: BP 137/70
[2019-07-25] MEDS: HYDROcodone/APAP 5 MG/325 MG (LORTAB) TAB PO PRN ×5 (00:50→21:35)
[2019-07-25 05:41] VITALS: BP 119/62
--- NOTE | 2019-07-25 06:00 | NUR ---
awake most of noc , amb in halls freq sba with fww.
[2019-07-25] MEDS: KCL 10 MEQ TAB (MICRO K) PO SCH ×2 (06:17→17:12)
[2019-07-25] MEDS: CATHETER FLUSH 10 ML SYR IV SCH ×3 (06:17→21:27)
[2019-07-25 07:10] LABS: HEMOGLOBIN 8.6 G/DL (11.5-16.0); MEAN PLATELET VOLUME 9.8 FL (7.4-10.4); RED CELL DISTRIBUTION WIDTH 17.5 % (10.0-14.5); WHITE BLOOD COUNT 16.6 10^3/uL (4.3-11.0)
[2019-07-25 07:29] LABS: CALCIUM 8.2 MG/DL (8.5-10.1); CREATININE SERUM 0.92 MG/DL (0.60-1.30); MAGNESIUM 1.2 MG/DL (1.6-2.4); POTASSIUM 4.5 MMOL/L (3.6-5.0)
[2019-07-25 08:00] VITALS: BP 119/70
[2019-07-25] MEDS: DILTIAZEM 180 MG (CARDIZEM CD) CAP PO SCH ×2 (09:24→21:26)
[2019-07-25] MEDS: FUROSEMIDE 20 MG (LASIX) TAB PO SCH (09:24)
[2019-07-25] MEDS: APIXABAN 2.5 MG (ELIQUIS) TABLET PO SCH ×2 (09:25→21:26)
[2019-07-25] MEDS: SENNA W/DOCUSATE (SENOKOT S) TABLET PO SCH ×2 (09:25→21:27)
[2019-07-25] MEDS: meTOprolol TARTRATE 50 MG (LOPRESSOR) TAB PO SCH ×2 (09:25→21:26)
[2019-07-25] MEDS: ASPIRIN E.C. 81 MG (ECOTRIN) TAB PO SCH (09:25)
[2019-07-25] MEDS: FOLIC ACID 1 MG TAB PO SCH (09:33)
[2019-07-25] MEDS: PANTOPRAZOLE 40 MG (PROTONIX) TAB PO SCH (09:33)
--- NOTE | 2019-07-25 10:30 | NUR ---
DR. VELASQUEZ AWARE OF HPONATREMIA AND FLUID RESTRICTION STARTED. DR. MACHUCA NOTIFIED OF HYPOMAGNESIUM. 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 COMPLAINS OF PAIN IN LEFT LEG AND LOWER BACK DUE TO SCIATICA.
--- NOTE | 2019-07-25 10:39 | PM&R Progress Note ---
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 HPI: This is a 78yoWF clinic Pt of Dr. Raciel Dias who presents to the inpatient rehab after presenting to the hospital with severe weakness requiring a blood transfusion and monitoring atrial fibrillation. She is currently being treated for lung cancer at [facility] from Dr. Mejía, of which she quit smoking in the . Apparently her prior level of functioning was fully independent of her ADLs and ambulation with no assistive devices. She will be moving in to her son's house and he has multiple steps which will be worked on aggressively by PT in order for her to regain function in order for her to return to her sons house to live with him at discharge. At this current time Pt feels well, she is breathing well, she is just weak. Her bowels are moving. Subjective/Events-last exam Patient has a very on sleep cycle she was up walking around the unit most of the night and now finally got to sleep Denies any headache today Has on eating times also and likes to eat at midnight Magnesium is 1.2 today so cardiology was notified White count is 6.6 without source or fever Sodium level 128 so added fluid restriction to 1500 cc a day Very somatic and very difficult to motivate and has very vague chronic pain syndrome complaints Son at the bedside and talks at the same time as the patient I cannot really understand both of them since they are very confusing when they talk at the same time Check meds and labs Conferred with RN Reviewed therapy notes Review of Systems General: Fatigue Gastrointestinal: Abdominal Pain Objective Exam Vital Signs Vital Signs Date Time Temp Pulse Resp B/P (MAP) Pulse Ox O2 Delivery O2 Flow Rate FiO2 07/25/19 17:00 96.2 80 14 110/72 (85) 97 Room Air Capillary Refill : General Appearance: No Apparent Distress, WD/WN, Chronically ill HEENT: PERRL/EOMI, Normal ENT Inspection, Pharynx Normal, Moist Mucous Membranes Neck: Full Range of Motion, Normal Inspection, Non Tender, Supple Respiratory: Chest Non Tender, Lungs Clear, Normal Breath Sounds, No Accessory Muscle Use, No Respiratory Distress Cardiovascular: No Edema, No Gallop, No JVD, No Murmur, Irregularly Irregular Gastrointestinal: Normal Bowel Sounds, No Organomegaly, No Pulsatile Mass, Non Tender, Soft Back: Normal Inspection, No CVA Tenderness, No Vertebral Tenderness Extremity: Normal Capillary Refill, Normal Inspection, Normal Range of Motion, Non Tender, No Calf Tenderness, No Pedal Edema Neurologic/Psychiatric: Alert, Oriented x3, No Motor/Sensory Deficits, Normal Mood/Affect, Motor Weakness (generalized legs greater than arms) Skin: Normal Color, Warm/Dry Lymphatic: No Adenopathy Results/Procedures Lab Laboratory Tests 07/25/19 06:55 Patient resulted labs reviewed. FIM Transfers Therapy Code Descriptions/Definitions Functional [place] Measure: 0=Not Assessed/NA 4=Minimal Assistance 1=Total Assistance 5=Supervision or Setup 2=Maximal Assistance 6=Modified [place] 3=Moderate Assistance 7=Complete [place] Therapy Quality Codes: 6 Independent with activity with or without an assistive device 5 Patient requires set up or clean up by helper. Patient completes activity by themselves 4 Supervision or touching assist (CGA). [place] provide cues , steadying assist 3 The helper provides less than half the effort to complete the activity 2 The helper provides more than half the effort to complete the activity 1 Dependent. The helper does all the effort to complete an activity 7 Patient refused to complete or attempt activity 9 The patient did not perform the activity before the current illness or injury 88 Not attempted due to Medical conditions or safety concerns Transfers (B, C, W/C) (FIM): 6 Scootin Rollin Roll Left to Right (QC): 5 Supine to/from Sit: 6 Sit to/from Stand: 6 Sit to Lying (QC): 5 Sit to Stand (QC): 5 Chair/Xjh-uj-[place] Xfer(QC): 4 Bed to/from Chair: 6 Car Transfer (QC): 4 Gait Training Does the Patient Walk?: Yes Gait (FIM): 2 Distance (FIM): 9=682-02 ft (125x2) Distance: 350' Walk 10 feet (QC): 5 Walk 50 ft with 2 Turns(QC): 5 Walk 150 ft (QC): 5 Walking 10ft/uneven surface-QC: 4 Gait Level of Assist: 4 Gait Persons Needed: 1 Gait Assistive Device: FWW Wheelchair Training Does the Pt Use a Wheelchair?: No Stair Training Stairs (FIM): 2 #of Steps: 4 1 Step (curb) (QC): 4 4 Steps (QC): 4 12 Steps (QC): 88 Level of Assist: 4 Balance Picking up an Object (QC): 88 Mental Status/Objective Comprehension: 6 Expression: 6 Social Interaction: 7 Problem Solvin Memory: 4 ADL-Treatment Feedin Eating (QC): 7 Groomin (Pt brushed hair sitting in room. Pt brushed teeth at sink, CGA ) Oral Hygiene (QC): 4 Bathin (Pt able to wash, rinse, and dry self, supervision. ) Bathing Location: L Arm, R Arm, L Upper Leg, R Upper Leg, L Lower Leg (including foot), R Lower Leg (including foot), Chest, Abdomen, Buttocks, Robyn ramsey Area Shower/Bathe Self (QC): 4 Upper Extremity Dressin (Pt able to don/doff bra and shirt by self. Supervision. ) Upper Body Dressing (QC): 4 Lower Extremity Dressin (Pt able to don/doff underwear, pants, socks, and shoes by self. Supervision. ) Lower Body Dressing (QC): 4 On/Off Footwear (QC): 4 Toiletin (As charted per nrsg, pt is SBA for toileting.) Toileting Hygiene (QC): 4 Toilet/Commode Transfer: 5 (As charted per nrsg, pt is SBA for toilet transfers using FWW and grabbars.) Toilet Transfer (QC): 4 Shower: 4 (Pt required FWW, grab bar, hand held shower head, and shower bench. ) Assessment/Plan Assessment and Plan Assess & Plan/Chief Complaint Plan: Continue meds from 4th floor Monitor BP and HR for RVR Strengthen and work on stairs in order to go home with son Cancer treatment per Dr Mejía IRF protocol Cardiology consultation is appreciated Monitor hgb and sodium level Fluid restriction Somatic complaints Very debilitated (1) Debility (2) Atrial fibrillation with RVR (3) Congestive heart failure Status: Acute (4) Hypokalemia (5) Anemia of chronic disease (6) Weakness (7) Non-small cell carcinoma of lung (8) Diastolic dysfunction Status: Acute (9) Afib MARIA GUADALUPE VELASQUEZ DO Jul 25, 2019 10:39
[2019-07-25] MEDS: MAGNESIUM 1 GM/100 ML IVPB 100 ML IV SCH ×2 (12:28→13:24)
--- NOTE | 2019-07-25 12:30 | Physical Therapy Daily Note ---
PT Daily Note-Current Subjective Pleasant and agreeable. Pt c/o sciatic pain (L) LE radiating to knee, 6/10 pain. Pain rated 5/10 post therapy session. Transfers Therapy Code Descriptions/Definitions Functional [place] Measure: 0=Not Assessed/NA 4=Minimal Assistance 1=Total Assistance 5=Supervision or Setup 2=Maximal Assistance 6=Modified [place] 3=Moderate Assistance 7=Complete [place] Therapy Quality Codes: 6 Independent with activity with or without an assistive device 5 Patient requires set up or clean up by helper. Patient completes activity by themselves 4 Supervision or touching assist (CGA). [place] provide cues , steadying assist 3 The helper provides less than half the effort to complete the activity 2 The helper provides more than half the effort to complete the activity 1 Dependent. The helper does all the effort to complete an activity 7 Patient refused to complete or attempt activity 9 The patient did not perform the activity before the current illness or injury 88 Not attempted due to Medical conditions or safety concerns Weight Bearing Full Weight Bearing Full Weight Bearing Treatments Pt amb with FWW and SBA at steady speed 500-700ft. Ther ex LAQ with DF for neural glide x 20 each. Seated figure 4 stretch 3 x 20 sec (B) LE. Pt resting in recliner post therapy, call light in reach and all needs met. Assessment Current Status: Good Progress Jose well. REsponded well to figure 4 stretch and neural glides. Pt with call light and all needs met. PT Short Term Goals Short Term Goals Time Frame: Jul 30, 2019 Transfers (B,C,W/C) (FIM): 6 Gait (FIM): 5 PT Long-Term Goals Long-Term Goals PT Long-Term Goals Time Frame: Aug 06, 2019 Transfers (B,C,W/C) (FIM): 7 Sit to Lying (QC): 6 Lying-Sitting on Side/Bed(QC): 6 Sit to Stand (QC): 6 Rollin Roll Left to Right (QC): 6 Chair/Edy-tu-Qoffi Xfer(QC): 6 Car Transfer (QC): 6 Does the Patient Walk: Yes Gait (FIM): 6 Gait distance (FIM): 3=150 ft Walk 10 feet (QC): 6 Walk 10ft-Uneven Surface(QC): 6 Walk 50ft with 2 Turns (QC): 6 Walk 150 ft (QC): 6 Gait Assistive Device: FWW (or least restrictive device) Stairs (FIM): 5 # of Steps: 4 1 Step (curb) (QC): 6 4 Steps (QC): 6 12 Steps (QC): 6 Picking up an Object (QC): 88 PT Plan Treatment/Plan Treatment Plan: Continue Plan of Care Treatment Plan: Bed Mobility, Education, Functional Activity Phil, Functional Strength, Group Therapy, Gait, Safety, Therapeutic Exercise, Transfers Treatment Duration: Aug 06, 2019 Frequency: At least 5 of 7 days/Wk (IRF) Estimated Hrs Per Day: 1.5 hours per day Patient and/or Family Agrees t: Yes Time/GCodes Time In: 815 Time Out: 830 Total Billed Treatment Time: 15 Total Billed Treatment 1, gait 10 min, ther ex 5 min HIMANSHU XAVIER CPTA Jul 25, 2019 12:30
[2019-07-25 17:00] VITALS: BP 110/72
[2019-07-25] MEDS: MAGNESIUM OXIDE (MAG-OX)400 MG TAB PO SCH (17:12)
--- NOTE | 2019-07-25 18:00 | NUR ---
PATIENT COMPLAINING OF LEFT GROIN PAIN THIS AFTERNOON AND STATES PAIN IS GETTING WORSE. SITE ASYMPTOMATIC. DR. VELASQUEZ NOTIFIED AND PATIENT AGREES TO TRY KPAD.
[2019-07-25 21:25] VITALS: BP 115/52
[2019-07-26] MEDS: HYDROcodone/APAP 5 MG/325 MG (LORTAB) TAB PO PRN ×4 (02:32→22:35)
[2019-07-26 05:45] VITALS: BP 135/75
[2019-07-26] MEDS: KCL 10 MEQ TAB (MICRO K) PO SCH ×2 (06:07→17:31)
[2019-07-26] MEDS: CATHETER FLUSH 10 ML SYR IV SCH ×3 (06:07→20:54)
[2019-07-26 08:00] VITALS: BP 110/68
--- NOTE | 2019-07-26 08:00 | NUR ---
COMPLAINS OF LEFT GROIN PAIN AGAIN THIS AM AND NURSE OFFERED KPAD. PATIENT STATES "RATHER HAVE IT ON MY BACK". FLUID RESTRICTION OBSERVED.
[2019-07-26] MEDS: ASPIRIN E.C. 81 MG (ECOTRIN) TAB PO SCH (08:44)
[2019-07-26] MEDS: MAGNESIUM OXIDE (MAG-OX)400 MG TAB PO SCH ×2 (08:44→17:31)
[2019-07-26] MEDS: DILTIAZEM 180 MG (CARDIZEM CD) CAP PO SCH ×2 (08:44→20:50)
[2019-07-26] MEDS: APIXABAN 2.5 MG (ELIQUIS) TABLET PO SCH ×2 (08:45→20:50)
[2019-07-26] MEDS: meTOprolol TARTRATE 50 MG (LOPRESSOR) TAB PO SCH ×2 (08:45→20:51)
[2019-07-26] MEDS: FOLIC ACID 1 MG TAB PO SCH (08:45)
[2019-07-26] MEDS: PANTOPRAZOLE 40 MG (PROTONIX) TAB PO SCH (08:45)
[2019-07-26] MEDS: FUROSEMIDE 20 MG (LASIX) TAB PO SCH (08:45)
[2019-07-26] MEDS: SENNA W/DOCUSATE (SENOKOT S) TABLET PO SCH ×2 (08:47→20:54)
--- NOTE | 2019-07-26 13:24 | PM&R Progress Note ---
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 HPI: This is a 78yoWF clinic Pt of Dr. Raciel Dias who presents to the inpatient rehab after presenting to the hospital with severe weakness requiring a blood transfusion and monitoring atrial fibrillation. She is currently being treated for lung cancer at [facility] from Dr. Mejía, of which she quit smoking in the . Apparently her prior level of functioning was fully independent of her ADLs and ambulation with no assistive devices. She will be moving in to her son's house and he has multiple steps which will be worked on aggressively by PT in order for her to regain function in order for her to return to her sons house to live with him at discharge. At this current time Pt feels well, she is breathing well, she is just weak. Her bowels are moving. Subjective/Events-last exam Patient becomes very somatic with the nurses during the afternoon and evening hours Reviewed slums score and it appears that she has deficit with score of 21/30 Left femoral pain without any type of exam findings was managed conservatively with both a K pad and ice pack but now denies any pain that that ever happened to me Maintain on anticoagulation of Eliquis low-dose Fluid restricted now for hyponatremia Very difficult to evaluate vague complaints and somatic issues Conferred with RN Reviewed therapy notes Checked meds and labs Review of Systems General: Fatigue Objective Exam Vital Signs Vital Signs Date Time Temp Pulse Resp B/P (MAP) Pulse Ox O2 Delivery O2 Flow Rate FiO2 07/26/19 19:48 Room Air 07/26/19 17:00 97.6 69 16 106/62 (77) 97 Capillary Refill : General Appearance: No Apparent Distress, WD/WN, Chronically ill HEENT: PERRL/EOMI, Normal ENT Inspection, Pharynx Normal, Moist Mucous Membranes Neck: Full Range of Motion, Normal Inspection, Non Tender, Supple Respiratory: Chest Non Tender, Lungs Clear, Normal Breath Sounds, No Accessory Muscle Use, No Respiratory Distress Cardiovascular: No Edema, No Gallop, No JVD, No Murmur, Irregularly Irregular Gastrointestinal: Normal Bowel Sounds, No Organomegaly, No Pulsatile Mass, Non Tender, Soft Back: Normal Inspection, No CVA Tenderness, No Vertebral Tenderness Extremity: Normal Capillary Refill, Normal Inspection, Normal Range of Motion, Non Tender, No Calf Tenderness, No Pedal Edema Neurologic/Psychiatric: Alert, Oriented x3, No Motor/Sensory Deficits, Normal Mood/Affect, Motor Weakness (generalized legs greater than arms) Skin: Normal Color, Warm/Dry Lymphatic: No Adenopathy Results/Procedures Lab Patient resulted labs reviewed. FIM Transfers Therapy Code Descriptions/Definitions Functional [place] Measure: 0=Not Assessed/NA 4=Minimal Assistance 1=Total Assistance 5=Supervision or Setup 2=Maximal Assistance 6=Modified [place] 3=Moderate Assistance 7=Complete [place] Therapy Quality Codes: 6 Independent with activity with or without an assistive device 5 Patient requires set up or clean up by helper. Patient completes activity by themselves 4 Supervision or touching assist (CGA). [place] provide cues , steadying assist 3 The helper provides less than half the effort to complete the activity 2 The helper provides more than half the effort to complete the activity 1 Dependent. The helper does all the effort to complete an activity 7 Patient refused to complete or attempt activity 9 The patient did not perform the activity before the current illness or injury 88 Not attempted due to Medical conditions or safety concerns Transfers (B, C, W/C) (FIM): 6 Scootin Rollin Roll Left to Right (QC): 5 Supine to/from Sit: 6 Sit to/from Stand: 6 Sit to Lying (QC): 5 Sit to Stand (QC): 5 Chair/Mex-tj-Fewhp Xfer(QC): 4 Bed to/from Chair: 6 Car Transfer (QC): 4 Gait Training Does the Patient Walk?: Yes Gait (FIM): 2 Distance (FIM): 5=897-30 ft (125x2) Distance: 350' Walk 10 feet (QC): 5 Walk 50 ft with 2 Turns(QC): 5 Walk 150 ft (QC): 5 Walking 10ft/uneven surface-QC: 4 Gait Level of Assist: 4 Gait Persons Needed: 1 Gait Assistive Device: FWW Wheelchair Training Does the Pt Use a Wheelchair?: No Stair Training Stairs (FIM): 2 #of Steps: 4 1 Step (curb) (QC): 4 4 Steps (QC): 4 12 Steps (QC): 88 Level of Assist: 4 Balance Picking up an Object (QC): 88 Mental Status/Objective Comprehension: 6 Expression: 6 Social Interaction: 7 Problem Solvin Memory: 4 ADL-Treatment Feedin Eating (QC): 7 Groomin (Pt brushed hair sitting in room. Pt brushed teeth at sink, CGA ) Oral Hygiene (QC): 4 Bathin (Pt able to wash, rinse, and dry self, supervision. ) Bathing Location: L Arm, R Arm, L Upper Leg, R Upper Leg, L Lower Leg (including foot), R Lower Leg (including foot), Chest, Abdomen, Buttocks, Robyn ramsey Area Shower/Bathe Self (QC): 4 Upper Extremity Dressin (Pt able to don/doff bra and shirt by self. Supervision. ) Upper Body Dressing (QC): 4 Lower Extremity Dressin (Pt able to don/doff underwear, pants, socks, and shoes by self. Supervision. ) Lower Body Dressing (QC): 4 On/Off Footwear (QC): 4 Toiletin (As charted per nrsg, pt is SBA for toileting.) Toileting Hygiene (QC): 4 Toilet/Commode Transfer: 5 (As charted per nrsg, pt is SBA for toilet transfers using FWW and grabbars.) Toilet Transfer (QC): 4 Shower: 4 (Pt required FWW, grab bar, hand held shower head, and shower bench. ) Assessment/Plan Assessment and Plan Assess & Plan/Chief Complaint Plan: Continued meds from 4th floor Monitor BP and HR for RVR Strengthen and work on stairs in order to go home with son Cancer treatment per Dr Mejía IRF protocol Cardiology consultation is appreciated Monitor hgb and sodium level Fluid restriction for now at 1500cc/day Somatic complaints Very debilitated (1) Debility (2) Atrial fibrillation with RVR (3) Congestive heart failure Status: Acute (4) Hypokalemia (5) Anemia of chronic disease (6) Weakness (7) Non-small cell carcinoma of lung (8) Diastolic dysfunction Status: Acute (9) MARIA GUADALUPE Casper DO Jul 26, 2019 13:24
[2019-07-26 17:00] VITALS: BP 106/62
[2019-07-26 20:51] VITALS: BP 103/68
[2019-07-27] MEDS: HYDROcodone/APAP 5 MG/325 MG (LORTAB) TAB PO PRN ×4 (02:32→22:35)
[2019-07-27 05:04] LABS: BASOPHILS % (AUTO) 0 % (0-10); EOSINOPHILS # (AUTO) 0.5 10^3/uL (0.0-0.3); EOSINOPHILS % (AUTO) 3 % (0-10); HEMATOCRIT 22 % (35-52); LYMPHOCYTES # (AUTO) 1.1 X 10^3 (1.0-4.0); LYMPHOCYTES % (AUTO) 8 % (12-44); MEAN CORPUSCULAR HEMOGLOBIN 29 PG (25-34); MEAN CORPUSCULAR HGB CONC 32 G/DL (32-36); MEAN CORPUSCULAR VOLUME 91 FL (80-99); MEAN PLATELET VOLUME 9.2 FL (7.4-10.4); MONOCYTES # (AUTO) 1.3 X 10^3 (0.0-1.0); MONOCYTES % (AUTO) 10 % (0-12); NEUTROPHILS # (AUTO) 10.9 X 10^3 (1.8-7.8); NEUTROPHILS % (AUTO) 79 % (42-75); PLATELET COUNT 289 10^3/uL (130-400); RED CELL DISTRIBUTION WIDTH 17.4 % (10.0-14.5); WHITE BLOOD COUNT 13.8 10^3/uL (4.3-11.0)
[2019-07-27 05:29] LABS: ALANINE AMINOTRANSFERASE 14 U/L (0-55); ALBUMIN 2.7 GM/DL (3.2-4.5); ALKALINE PHOSPHATASE 177 U/L (40-136); BILIRUBIN,TOTAL 0.3 MG/DL (0.1-1.0); BUN/CREATININE RATIO 29; CARBON DIOXIDE 22 MMOL/L (21-32); CHLORIDE 100 MMOL/L (98-107); CREATININE SERUM 0.73 MG/DL (0.60-1.30); GFR ESTIMATED > 60; GLUCOSE 114 MG/DL (70-105); POTASSIUM 4.8 MMOL/L (3.6-5.0); SODIUM 128 MMOL/L (135-145); TOTAL PROTEIN 5.1 GM/DL (6.4-8.2)
[2019-07-27] MEDS: CATHETER FLUSH 10 ML SYR IV SCH ×3 (05:32→20:15)
[2019-07-27] MEDS: KCL 10 MEQ TAB (MICRO K) PO SCH ×2 (05:32→18:00)
[2019-07-27 05:40] VITALS: BP 101/58
--- NOTE | 2019-07-27 06:24 | NUR ---
DR. VELASQUEZ NOTIFIED OF PATIENT'S HGB 7.0. NO NEW ORDERS AT THIS TIME.
[2019-07-27] MEDS: FUROSEMIDE 20 MG (LASIX) TAB PO SCH (08:57)
[2019-07-27] MEDS: FOLIC ACID 1 MG TAB PO SCH (08:57)
[2019-07-27] MEDS: ASPIRIN E.C. 81 MG (ECOTRIN) TAB PO SCH (08:57)
[2019-07-27] MEDS: PANTOPRAZOLE 40 MG (PROTONIX) TAB PO SCH (08:57)
[2019-07-27] MEDS: DILTIAZEM 180 MG (CARDIZEM CD) CAP PO SCH ×2 (08:57→20:14)
[2019-07-27] MEDS: SENNA W/DOCUSATE (SENOKOT S) TABLET PO SCH ×2 (08:58→20:14)
[2019-07-27] MEDS: MAGNESIUM OXIDE (MAG-OX)400 MG TAB PO SCH ×2 (08:58→18:00)
[2019-07-27] MEDS: meTOprolol TARTRATE 50 MG (LOPRESSOR) TAB PO SCH ×2 (08:59→20:14)
--- NOTE | 2019-07-27 08:59 | Occupational Ther Daily Note ---
OT Current Status-Daily Note Subjective Pt alert, sitting in recliner. Pt anxious about getting ready for therapy program today. LOPEZ explained about the therapy process and what OT does. Pt agrees to therapy. Pt requested pain pill after therapy, reported to nrsg. Mental Status/Objective Patient Orientation: Person, Place, Time, Situation Therapy Code Descriptions/Definitions Functional [place] Measure: 0=Not Assessed/NA 4=Minimal Assistance 1=Total Assistance 5=Supervision or Setup 2=Maximal Assistance 6=Modified [place] 3=Moderate Assistance 7=Complete [place] Attachments: Central Line ADL-Treatment Therapy Code Descriptions/Definitions Functional [place] Measure: 0=Not Assessed/NA 4=Minimal Assistance 1=Total Assistance 5=Supervision or Setup 2=Maximal Assistance 6=Modified [place] 3=Moderate Assistance 7=Complete [place] Therapy Quality Codes: 6 Independent with activity with or without an assistive device 5 Patient requires set up or clean up by helper. Patient completes activity by themselves 4 Supervision or touching assist (CGA). [place] provide cues , steadying assist 3 The helper provides less than half the effort to complete the activity 2 The helper provides more than half the effort to complete the activity 1 Dependent. The helper does all the effort to complete an activity 7 Patient refused to complete or attempt activity 9 The patient did not perform the activity before the current illness or injury 88 Not attempted due to Medical conditions or safety concerns Grooming (FIM): 5 (Supervision standing at sink using counter for support.) Oral Hygiene (QC): 4 Bathing (FIM): 5 (Using shower bench, grabbars and hand held shower pt able to complete with supervision. Pt cues to sit during shower for energy c onservation.) Bathing Location: L Arm, R Arm, L Upper Leg, R Upper Leg, L Lower Leg (including foot), R Lower Leg (including foot), Chest, Abdomen, Buttocks, Perineal Area Shower/Bathe Self (QC): 4 Upper Body (FIM): 5 (Supervision. Pt ambulated with FWW to closet then pt sat in chair to retrieve clothing and dress.) Upper Body Dressing (QC): 4 Lower Body Dressing (FIM): 5 (Pt ambulated to closet then sat in chair to retrieve clothing. Dressed lower body with supervision.) Lower Body Dressing (QC): 4 On/Off Footwear (QC): 6 Toileting (FIM): 5 (Supervision for safety. Pt uses FWW and grabbars to complete toileting.) Toileting Hygiene (QC): 4 Transfers (B, C, W/C) (FIM): 5 (Cues to remember to use FWW for transfers and ambulation. Pt tends to leave FWW behind.) Toilet/Commode Transfer (FIM): 5 (Supervision for safety. Pt uses FWW and grabbars.) Toilet Transfer (QC): 4 Shower Transfer(FIM): 5 (Supervision for safety using grabbars, FWW and shower bench.) Pt becomes fatigued very easily and takes recovery breaks frequently. After therapy, pt sitting in recliner with call light/phone in reach. All needs met in room. Safety measures on. OT Short Term Goals Short Term Goals Transfers (B,C,W/C) (FIM): 6 1=Demonstrate adherence to instructed precautions during ADL tasks. 2=Patient will verbalize/demonstrate understanding of assistive devices/modifications for ADL. 3=Patient will improve strength/tolerance for activity to enable patient to perform ADL's. OT Supervisor Soldering Goals Supervisor Soldering Goals Time Frame: Aug 06, 2019 Eating (FIM): 6 Eating (QC): 6 Groomin Oral Hygiene (QC): 6 Bathing(FIM): 5 Shower/Bathe Self (QC): 4 Upper Body Dressing(FIM): 6 Upper Body Dressing (QC): 6 Lower Body Dressing(FIM): 6 Lower Body Dressing (QC): 6 On/Off Footwear (QC): 6 Toileting(FIM): 6 Toileting Hygiene (QC): 6 Transfers (B,C,W/C) (FIM): 6 Toilet/Commode Transfer(FIM): 6 Toilet/Commode Transfer (QC): 6 Additional Goals: 1-Demonstrate ADL Tasks, 2-Verbalize Understanding, 3- ImproveStrength/Phil 1=Demonstrate adherence to instructed precautions during ADL tasks. 2=Patient will verbalize/demonstrate understanding of assistive devices/modifications for ADL. 3=Patient will improve strength/tolerance for activity to enable patient to perform ADL's. OT Education/Plan Problem List/Assessment Assessment: Decreased Activ Tolerance, Decreased Safety Aware, Impaired Cognition Discharge Recommendations Plan/Recommendations: Continue POC Treatment Plan/Plan of Care Patient would benefit from OT for education, treatment and training to promote independence in ADL's, mobility, safety and/or upper extremity function for ADL's. Plan of Care: ADL Retraining, Functional Mobility, Group Exercise/Act as Ind, UE Funct Exercise/Act Treatment Duration: Aug 06, 2019 Frequency: At least 5 of 7 days/Wk (IRF) Estimated Hrs Per Day: 1.5 hours per day Agreement: Yes Rehab Potential: Good Time/GCodes Start Time: 08:00 Stop Time: 09:00 Total Time Billed (hr/min): 60 Billed Treatment Time 1 visit-ADL 4 (60 min) RADHA WITT Jul 27, 2019 08:59
--- NOTE | 2019-07-27 10:02 | PM&R Progress Note ---
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 HPI: This is a 78yoWF clinic Pt of Dr. Raciel Dias who presents to the inpatient rehab after presenting to the hospital with severe weakness requiring a blood transfusion and monitoring atrial fibrillation. She is currently being treated for lung cancer at [facility] from Dr. Mejía, of which she quit smoking in the . Apparently her prior level of functioning was fully independent of her ADLs and ambulation with no assistive devices. She will be moving in to her son's house and he has multiple steps which will be worked on aggressively by PT in order for her to regain function in order for her to return to her sons house to live with him at discharge. At this current time Pt feels well, she is breathing well, she is just weak. Her bowels are moving. Subjective/Events-last exam Patient becomes very somatic with the nurses during the afternoon and evening hours and denies most of these issues with me Reviewed slums score and it appears that she has deficit with score of 21/30 so that could be a contributing factor with the somatic issues Left femoral pain now resolved without any major intervention Maintained on anticoagulation of Eliquis low-dose but will hold due to low Hgb and will need to give 1 unit of blood and she reports that her stools are dark so will hemoccult stools Fluid restricted now for hyponatremia and her sodium level remains at 128 so likely a factor is cancer treatment Very difficult to evaluate vague complaints and somatic issues but she seems to be stable although frail Conferred with RN Reviewed therapy notes Checked meds and labs Review of Systems General: Fatigue Gastrointestinal: Melena (??) Neurological: Confusion Objective Exam Vital Signs Vital Signs Date Time Temp Pulse Resp B/P (MAP) Pulse Ox O2 Delivery O2 Flow Rate FiO2 07/27/19 16:26 97.9 70 18 130/73 100 Room Air Capillary Refill : General Appearance: No Apparent Distress, WD/WN, Chronically ill HEENT: PERRL/EOMI, Normal ENT Inspection, Pharynx Normal, Moist Mucous Membranes Neck: Full Range of Motion, Normal Inspection, Non Tender, Supple Respiratory: Chest Non Tender, Lungs Clear, Normal Breath Sounds, No Accessory Muscle Use, No Respiratory Distress Cardiovascular: No Edema, No Gallop, No JVD, No Murmur, Irregularly Irregular Gastrointestinal: Normal Bowel Sounds, No Organomegaly, No Pulsatile Mass, Non Tender, Soft Back: Normal Inspection, No CVA Tenderness, No Vertebral Tenderness Extremity: Normal Capillary Refill, Normal Inspection, Normal Range of Motion, Non Tender, No Calf Tenderness, No Pedal Edema Neurologic/Psychiatric: Alert, Oriented x3, No Motor/Sensory Deficits, Normal Mood/Affect, Motor Weakness (generalized legs greater than arms) Skin: Normal Color, Warm/Dry Lymphatic: No Adenopathy Results/Procedures Lab Laboratory Tests 07/27/19 05:00 Patient resulted labs reviewed. FIM Transfers Therapy Code Descriptions/Definitions Functional [place] Measure: 0=Not Assessed/NA 4=Minimal Assistance 1=Total Assistance 5=Supervision or Setup 2=Maximal Assistance 6=Modified [place] 3=Moderate Assistance 7=Complete [place] Therapy Quality Codes: 6 Independent with activity with or without an assistive device 5 Patient requires set up or clean up by helper. Patient completes activity by themselves 4 Supervision or touching assist (CGA). [place] provide cues , steadying assist 3 The helper provides less than half the effort to complete the activity 2 The helper provides more than half the effort to complete the activity 1 Dependent. The helper does all the effort to complete an activity 7 Patient refused to complete or attempt activity 9 The patient did not perform the activity before the current illness or injury 88 Not attempted due to Medical conditions or safety concerns Transfers (B, C, W/C) (FIM): 5 (Cues to remember to use FWW for transfers and ambulation. Pt tends to leave FWW behind.) Scootin Rollin Roll Left to Right (QC): 5 Supine to/from Sit: 6 Sit to/from Stand: 6 Sit to Lying (QC): 5 Sit to Stand (QC): 5 Chair/Wfi-nx-Mdtxi Xfer(QC): 4 Bed to/from Chair: 6 Car Transfer (QC): 4 Gait Training Does the Patient Walk?: Yes Gait (FIM): 2 Distance (FIM): 4=438-50 ft (125x2) Distance: 350' Walk 10 feet (QC): 5 Walk 50 ft with 2 Turns(QC): 5 Walk 150 ft (QC): 5 Walking 10ft/uneven surface-QC: 4 Gait Level of Assist: 4 Gait Persons Needed: 1 Gait Assistive Device: FWW Wheelchair Training Does the Pt Use a Wheelchair?: No Stair Training Stairs (FIM): 2 #of Steps: 4 1 Step (curb) (QC): 4 4 Steps (QC): 4 12 Steps (QC): 88 Level of Assist: 4 Balance Picking up an Object (QC): 88 Mental Status/Objective Comprehension: 6 Expression: 6 Social Interaction: 7 Problem Solvin Memory: 4 ADL-Treatment Feedin Eating (QC): 7 Groomin (Supervision standing at sink using counter for support.) Oral Hygiene (QC): 4 Bathin (Using shower bench, grabbars and hand held shower pt able to complete with supervision. Pt cues to sit during shower for energy conservation.) Bathing Location: L Arm, R Arm, L Upper Leg, R Upper Leg, L Lower Leg (including foot), R Lower Leg (including foot), Chest, Abdomen, Buttocks, Perineal Area Shower/Bathe Self (QC): 4 Upper Extremity Dressin (Supervision. Pt ambulated with FWW to closet then pt sat in chair to retrieve clothing and dress.) Upper Body Dressing (QC): 4 Lower Extremity Dressin (Pt ambulated to closet then sat in chair to retrieve clothing. Dressed lower body with supervision.) Lower Body Dressing (QC): 4 On/Off Footwear (QC): 6 Toiletin (Supervision for safety. Pt uses FWW and grabbars to complete toileting.) Toileting Hygiene (QC): 4 Toilet/Commode Transfer: 5 (Supervision for safety. Pt uses FWW and grabbars.) Toilet Transfer (QC): 4 Shower: 5 (Supervision for safety using grabbars, FWW and shower bench.) Assessment/Plan Assessment and Plan Assess & Plan/Chief Complaint Plan: Continued meds from 4th floor Monitor BP and HR for RVR Strengthen and work on stairs in order to go home with son Cancer treatment per Dr Mejía IRF protocol Cardiology consultation is appreciated Monitor hgb and sodium level Fluid restriction for now at 1500cc/day but sodium level still at 128 Somatic complaints are continued Very debilitated may need NH Transfuse 1 unit of blood and hemoccult stools and hold Eliquis (1) Debility (2) Atrial fibrillation with RVR (3) Congestive heart failure Status: Acute (4) Hypokalemia (5) Anemia of chronic disease (6) Weakness (7) Non-small cell carcinoma of lung (8) Diastolic dysfunction Status: Acute (9) Afib (10) Transfusion of blood during current hospitalization (11) Dark stools (12) Dementia (13) Somatic complaints, multiple MARIA GUADALUPE VELASQUEZ DO Jul 27, 2019 10:02
--- NOTE | 2019-07-27 10:15 | Physical Therapy Daily Note ---
PT Daily Note-Current Subjective Pt in chair, agreeable. c/o groin pain upon arrival, not rated. When beginning to ambulate, Pt requested to return to room due to "something sharp in my pants, sticking me leg". Pt sat EOB, requested band-aids to cover mole and scab, reporting that was causing her pain. Mental Status Patient Orientation: Person, Place, Time, Situation Transfers Therapy Code Descriptions/Definitions Functional [place] Measure: 0=Not Assessed/NA 4=Minimal Assistance 1=Total Assistance 5=Supervision or Setup 2=Maximal Assistance 6=Modified [place] 3=Moderate Assistance 7=Complete [place] Therapy Quality Codes: 6 Independent with activity with or without an assistive device 5 Patient requires set up or clean up by helper. Patient completes activity by themselves 4 Supervision or touching assist (CGA). [place] provide cues , steadying assist 3 The helper provides less than half the effort to complete the activity 2 The helper provides more than half the effort to complete the activity 1 Dependent. The helper does all the effort to complete an activity 7 Patient refused to complete or attempt activity 9 The patient did not perform the activity before the current illness or injury 88 Not attempted due to Medical conditions or safety concerns Sit to/from Stand: 4 Weight Bearing Right Lower Extremity: Right Full Weight Bearing Left Lower Extremity: Left Full Weight Bearing Gait Training Does the Patient Walk?: Yes Gait (FIM): 4 Distance (FIM): 3=150 ft Distance: 150 Walk 10 feet (QC): 4 Walk 50 ft with 2 Turns(QC): 4 Walk 150 ft (QC): 4 Gait Level of Assist: 4 Gait Persons Needed: 1 Gait Assistive Device: FWW Skilled VCS, CGA for safety. Pt demonstrates poor safety awareness, frequently letting go of walker with one hand, abandoning walker. Exercises Seated Therapy Exercises: Long arc quads, Hip flexion, Hamstring Curls (RTB), Hip abd/add (RTB, pillow) Seated Reps: [address] Ex=Flex, Abd, Ext Standing Reps: 12 Treatments Gait training with FWW with skilled VCS for safety with transfers and gait. Pt donned/doffed pants with SBA x 1 at EOB due to n. pain in (L) LE. Ther ex for LE strengthening. Returned to chair with alarm activated. Assessment Current Status: Fair Progress Pt tolerated fair-well. Focused on (L) LE anterior thigh pain this date. Poor safety awareness. PT Short Term Goals Short Term Goals Time Frame: Jul 30, 2019 Transfers (B,C,W/C) (FIM): 6 Gait (FIM): 5 PT Heavy Duty Mechanic Goals Prison Goals PT Prison Goals Time Frame: Aug 06, 2019 Transfers (B,C,W/C) (FIM): 7 Sit to Lying (QC): 6 Lying-Sitting on Side/Bed(QC): 6 Sit to Stand (QC): 6 Rollin Roll Left to Right (QC): 6 Chair/Drk-mu-Iffrg Xfer(QC): 6 Car Transfer (QC): 6 Does the Patient Walk: Yes Gait (FIM): 6 Gait distance (FIM): 3=150 ft Walk 10 feet (QC): 6 Walk 10ft-Uneven Surface(QC): 6 Walk 50ft with 2 Turns (QC): 6 Walk 150 ft (QC): 6 Gait Assistive Device: FWW (or least restrictive device) Stairs (FIM): 5 # of Steps: 4 1 Step (curb) (QC): 6 4 Steps (QC): 6 12 Steps (QC): 6 Picking up an Object (QC): 88 PT Plan Problem List Problem List: Activity Tolerance, Functional Strength, Safety, Balance, Gait, Transfer, Bed Mobility Treatment/Plan Treatment Plan: Continue Plan of Care Treatment Plan: Bed Mobility, Education, Functional Activity Phil, Functional Strength, Group Therapy, Gait, Safety, Therapeutic Exercise, Transfers Treatment Duration: Aug 06, 2019 Frequency: At least 5 of 7 days/Wk (IRF) Estimated Hrs Per Day: 1.5 hours per day Patient and/or Family Agrees t: Yes Safety Risks/Education Patient Education: Gait Training Teaching Recipient: Patient Teaching Methods: Discussion Response to Teaching: Verbalize Understanding, Reinforcement Needed Time/GCodes Time In: 0922 Time Out: 1000 Total Billed Treatment Time: 38 Total Billed Treatment 1, Gt x 23', Ex x 15' RAYNE SHELBY DPHalina Jul 27, 2019 10:15
--- NOTE | 2019-07-27 10:54 | Speech Therapy Daily Note ---
Speech Daily Progress Note Subjective Date Seen by Provider: Jul 27, 2019 Time Seen by Provider: 00:30 The patient was resting in her recliner when I arrived. Objective The patient completed a series of memory tasks related to her daily needs at 75% with moderate cues. Communication Comprehension: 6 Expression: 6 Social Cognition Social Interaction: 7 Problem Solvin Memory: 4 Speech Short Term Goals Short Term Goals Short Term Goals 1) The patient will complete memory tasks related to her daily needs at 90% or greater. 2) The patient will complete problem solving tasks related to her daily needs at 90% or greater. 3) The patient will complete safety awareness tasks related to her daily needs at 90% or greater. Speech Human Resources Assistant Goals Group Home Goals The patient will improve cognitive function so that she may return safely. Speech-Plan Patient/Family Goals Patient/Family Goals: The patient plans on returning home post rehab. Treatment Plan Speech Therapy Treatment Plan: Continue Plan of Care The patient has made minimal progress thus far. Treatment Duration: Aug 05, 2019 Frequency: 5 times per week Estimated Hrs Per Day: .5 hour per day Rehab Potential: Good Barriers to Learning: Patient has cognitive deficits Pt/Family Agrees to Plan: Yes Safety Risks/Education Teaching Recipient: Patient Teaching Methods: Demonstration, Discussion Response to Teaching: Verbalize Understanding, Return Demonstration Education Topics Provided: Safety within her room Time Speech Therapy Time In: 10:00 Speech Therapy Time Out: 10:30 Total Billed Time: 30 Billed Treatment Time 1CARLY BETHANIA ST Jul 27, 2019 10:54
[2019-07-27] MEDS ORDERED: NS IV 500 ML 500 ML IV SCH (11:10)
[2019-07-27] MEDS: APIXABAN 2.5 MG (ELIQUIS) TABLET PO SCH (11:31)
--- NOTE | 2019-07-27 14:20 | Therapy Group Daily Note ---
Therapy Daily Group Note Patient Education Topic Exercises Exercises LE Seated Exercise, UE Exercise Session Ratio (pt:therapist): 3:1 Goal of Session: Education on ARU Expectations, UE/LE Strengthing Goal Met for this Session: Yes Pt Benefit of Group: Contributions to Others, Increased Functional Strength, Improved Cognition, Recognition of Peers, Socialization Other/Notes Pt ambulated using FWW to ARU commons for OT/PT group. Group consisted of introductions (name, place living, first job), socialization, description/expectations of ARU, benefits of exercise and pt lead exercises. Pt able to introduced self appropriately and actively listened to peers. Pt acknowledged understanding of educational topics by leading own exercise and giving personal experiences. Pt tolerated exercises well and actively participated when other pt's led exercises. Pt acknowledged understanding of ARU description by affirmative gestures. After therapy, pt sitting recliner. C all light/phone in reach. All needs met in room. Start Time: 12:40 Stop Time: 13:50 Total Billed Treatment Time: 70 Total Billed Treatment 1-RADHA CATALAN Jul 27, 2019 14:20
[2019-07-27 16:01] VITALS: BP 118/73
[2019-07-27 16:26] VITALS: BP 130/73
[2019-07-27 17:00] VITALS: BP 118/73
[2019-07-27 18:29] VITALS: BP 147/80
[2019-07-27 20:11] VITALS: BP 113/69
[2019-07-27] MEDS: ONDANSETRON 4 MG (ZOFRAN) ORAL DISSOLVE TAB PO PRN (21:07)
[2019-07-28] MEDS: HYDROcodone/APAP 5 MG/325 MG (LORTAB) TAB PO PRN ×4 (02:38→20:03)
--- NOTE | 2019-07-28 05:00 | NUR ---
pt c/o nausea zofran po given with relief noted see mar, no further c/o nausea
[2019-07-28 05:55] VITALS: BP 111/65
[2019-07-28] MEDS: CATHETER FLUSH 10 ML SYR IV SCH ×3 (06:29→20:18)
[2019-07-28] MEDS: KCL 10 MEQ TAB (MICRO K) PO SCH ×2 (06:29→17:22)
[2019-07-28] MEDS: RT-ADVAIR HFA 115/21 MCG PER PUFF IH PRN (06:42)
[2019-07-28 07:07] LABS: BASOPHILS % (AUTO) 0 % (0-10); EOSINOPHILS # (AUTO) 0.3 10^3/uL (0.0-0.3); EOSINOPHILS % (AUTO) 2 % (0-10); HEMATOCRIT 26 % (35-52); HEMOGLOBIN 8.5 G/DL (11.5-16.0); LYMPHOCYTES # (AUTO) 1.2 X 10^3 (1.0-4.0); LYMPHOCYTES % (AUTO) 8 % (12-44); MEAN CORPUSCULAR HEMOGLOBIN 28 PG (25-34); MEAN CORPUSCULAR HGB CONC 32 G/DL (32-36); MEAN CORPUSCULAR VOLUME 86 FL (80-99); MEAN PLATELET VOLUME 9.7 FL (7.4-10.4); MONOCYTES # (AUTO) 1.4 X 10^3 (0.0-1.0); MONOCYTES % (AUTO) 9 % (0-12); NEUTROPHILS # (AUTO) 12.6 X 10^3 (1.8-7.8); NEUTROPHILS % (AUTO) 81 % (42-75); PLATELET COUNT 334 10^3/uL (130-400); RED CELL DISTRIBUTION WIDTH 20.5 % (10.0-14.5); WHITE BLOOD COUNT 15.4 10^3/uL (4.3-11.0)
[2019-07-28 07:24] LABS: BUN/CREATININE RATIO 26; CALCIUM 8.2 MG/DL (8.5-10.1); CARBON DIOXIDE 21 MMOL/L (21-32); CHLORIDE 100 MMOL/L (98-107); CREATININE SERUM 0.72 MG/DL (0.60-1.30); GFR ESTIMATED > 60; GLUCOSE 98 MG/DL (70-105); POTASSIUM 5.1 MMOL/L (3.6-5.0); SODIUM 130 MMOL/L (135-145)
[2019-07-28 07:38] LABS: ANISOCYTOSIS MODERATE; BAND NEUTROPHILS 0 %; BASOPHILS % (MANUAL) 0 %; ELLIPT/OVALOCYTES SLIGHT; EOSINOPHILS % (MANUAL) 1 %; LYMPHOCYTES % (MANUAL) 4 %; MONOCYTES % (MANUAL) 11 %; NEUTROPHILS % (MANUAL) 84 %
--- NOTE | 2019-07-28 08:50 | Occupational Ther Daily Note ---
OT Current Status-Daily Note Subjective Pt alert, lying in bed. Pt c/o having diarrhea and vomiting last night. Pt anxious about not being ready before therapy session, LOPEZ explained what OT and PT does during therapy. Pt is impulsive and is difficult to redirect to use safety and energy conservation techniques during session. Pt has own routine that she is used to. Pt demonstrating STM issues with new information given. Mental Status/Objective Patient Orientation: Person, Place, Time, Situation Therapy Code Descriptions/Definitions Functional [place] Measure: 0=Not Assessed/NA 4=Minimal Assistance 1=Total Assistance 5=Supervision or Setup 2=Maximal Assistance 6=Modified [place] 3=Moderate Assistance 7=Complete [place] ADL-Treatment Pt requires frequent rest breaks due to decreased activity tolerance. Pt is impulsive and will leave FWW then walk fast to area. Therapy Code Descriptions/Definitions Functional [place] Measure: 0=Not Assessed/NA 4=Minimal Assistance 1=Total Assistance 5=Supervision or Setup 2=Maximal Assistance 6=Modified [place] 3=Moderate Assistance 7=Complete [place] Therapy Quality Codes: 6 Independent with activity with or without an assistive device 5 Patient requires set up or clean up by helper. Patient completes activity by themselves 4 Supervision or touching assist (CGA). [place] provide cues , steadying assist 3 The helper provides less than half the effort to complete the activity 2 The helper provides more than half the effort to complete the activity 1 Dependent. The helper does all the effort to complete an activity 7 Patient refused to complete or attempt activity 9 The patient did not perform the activity before the current illness or injury 88 Not attempted due to Medical conditions or safety concerns Grooming (FIM): 5 (Pt brushed hair and teeth standing at sink in room, SBA safety.) Oral Hygiene (QC): 4 Bathing (FIM): 5 (Pt able to wash, cleanse, and dry by self, supervision. SBA while standing.) Bathing Location: L Arm, R Arm, L Upper Leg, R Upper Leg, L Lower Leg (including foot), R Lower Leg (including foot), Chest, Abdomen, Buttocks, Perineal Area Shower/Bathe Self (QC): 4 Upper Body (FIM): 5 (Pt obtained clothing from closet using FWW. Pt doffed bra and shirt by self while sitting on shower bench. Pt donned bra and shirt by self sitting in chair in room, supervision. ) Upper Body Dressing (QC): 4 (Supervision) Lower Body Dressing (FIM): 5 (Pt able to obtain clothing from closet using FWW. Pt doffed underwear and pants by self sitting on shower bench, SBA for safety while standing. Pt donned briefs, pants, socks and shoes by self sitting in chair in room, SBA while standing to hike briefs and pants above waist, Supervision. ) Lower Body Dressing (QC): 4 On/Off Footwear (QC): 4 Toileting (FIM): 5 (Pt able to manage clothing properly before and after sitting. Pt able to cleanse self after voiding, SBA while standing, supervision. ) Toileting Hygiene (QC): 4 Transfers (B, C, W/C) (FIM): 4 (Pt required FWW. Pt needs verbal cues to use arm rests to push up on instead of FWW. CGA for safety.) Toilet/Commode Transfer (FIM): 4 (Pt requires FWW and grab bar, CGA assist due to safety. ) Toilet Transfer (QC): 4 Shower Transfer(FIM): 4 (Pt requires FWW, grab bar, and shower bench. CGA for safety. Pt does not reach behind before sitting, impulsive. Verbal cues needed.) Other Treatment Pt ambulated using FWW to therapy gym. Pt participated in arm bike exercise duration 15 min at 20 watt resistance to increase upper body strength for daily functional activity tasks. Pt ambulated back to room. Pt in bed with call light and phone in reach. All needs met. OT Short Term Goals Short Term Goals Transfers (B,C,W/C) (FIM): 6 1=Demonstrate adherence to instructed precautions during ADL tasks. 2=Patient will verbalize/demonstrate understanding of assistive devices/modifications for ADL. 3=Patient will improve strength/tolerance for activity to enable patient to perform ADL's. OT Snf Goals Process Improvement Analyst Goals Time Frame: Aug 06, 2019 Eating (FIM): 6 Eating (QC): 6 Groomin Oral Hygiene (QC): 6 Bathing(FIM): 5 Shower/Bathe Self (QC): 4 Upper Body Dressing(FIM): 6 Upper Body Dressing (QC): 6 Lower Body Dressing(FIM): 6 Lower Body Dressing (QC): 6 On/Off Footwear (QC): 6 Toileting(FIM): 6 Toileting Hygiene (QC): 6 Transfers (B,C,W/C) (FIM): 6 Toilet/Commode Transfer(FIM): 6 Toilet/Commode Transfer (QC): 6 Additional Goals: 1-Demonstrate ADL Tasks, 2-Verbalize Understanding, 3- ImproveStrength/Phil 1=Demonstrate adherence to instructed precautions during ADL tasks. 2=Patient will verbalize/demonstrate understanding of assistive devices/modifications for ADL. 3=Patient will improve strength/tolerance for activity to enable patient to perform ADL's. OT Education/Plan Problem List/Assessment Assessment: Decreased Activ Tolerance, Decreased Safety Aware Discharge Recommendations Plan/Recommendations: Continue POC Treatment Plan/Plan of Care Patient would benefit from OT for education, treatment and training to promote independence in ADL's, mobility, safety and/or upper extremity function for ADL's. Plan of Care: ADL Retraining, Functional Mobility, Group Exercise/Act as Ind, UE Funct Exercise/Act Treatment Duration: Aug 06, 2019 Frequency: At least 5 of 7 days/Wk (IRF) Estimated Hrs Per Day: 1.5 hours per day Agreement: Yes Rehab Potential: Good Time/GCodes Start Time: 08:15 Stop Time: 09:30 Total Time Billed (hr/min): 75 Billed Treatment Time 1 visit- ADL 4 (60 min) EX 1 (15 min) RADHA WITT Jul 28, 2019 08:50
[2019-07-28 09:10] VITALS: BP 104/46
[2019-07-28] MEDS: FOLIC ACID 1 MG TAB PO SCH (09:11)
[2019-07-28] MEDS: MAGNESIUM OXIDE (MAG-OX)400 MG TAB PO SCH ×2 (09:11→17:22)
[2019-07-28] MEDS: FUROSEMIDE 20 MG (LASIX) TAB PO SCH (09:11)
[2019-07-28] MEDS: DILTIAZEM 180 MG (CARDIZEM CD) CAP PO SCH ×2 (09:11→20:03)
[2019-07-28] MEDS: PANTOPRAZOLE 40 MG (PROTONIX) TAB PO SCH (09:11)
--- NOTE | 2019-07-28 09:46 | PM&R Progress Note ---
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 HPI: This is a 78yoWF clinic Pt of Dr. Raciel Dias who presents to the inpatient rehab after presenting to the hospital with severe weakness requiring a blood transfusion and monitoring atrial fibrillation. She is currently being treated for lung cancer at [facility] from Dr. Mejía, of which she quit smoking in the . Apparently her prior level of functioning was fully independent of her ADLs and ambulation with no assistive devices. She will be moving in to her son's house and he has multiple steps which will be worked on aggressively by PT in order for her to regain function in order for her to return to her sons house to live with him at discharge. At this current time Pt feels well, she is breathing well, she is just weak. Her bowels are moving. Subjective/Events-last exam Hgb was 7 yesterday so gave her one unit and her Hgb is now 8.5. Hemoccult stool is positive. She will talk to her oncologist Dr. Mejía at [facility] tomorrow at her regular appointment for chemotherapy, but I doubt that he is going to do chemotherapy since she is at such a weakened state. Sodium level is improved at 130. Holding Eliquis. She will talk to him about needing an EGD and colonoscopy at her appointment tomorrow and go from there. Very difficult to evaluate vague complaints and somatic issues but she seems to be stable although frail Conferred with RN Reviewed therapy notes Checked meds and labs Review of Systems General: Fatigue Gastrointestinal: Melena Objective Exam Vital Signs Vital Signs Date Time Temp Pulse Resp B/P (MAP) Pulse Ox O2 Delivery O2 Flow Rate FiO2 07/28/19 17:10 98.2 80 20 124/72 (89) 96 Room Air Capillary Refill : General Appearance: No Apparent Distress, WD/WN, Chronically ill, Cachetic, Thin HEENT: PERRL/EOMI, Normal ENT Inspection, Pharynx Normal, Moist Mucous Membranes Neck: Full Range of Motion, Normal Inspection, Non Tender, Supple Respiratory: Chest Non Tender, Lungs Clear, Normal Breath Sounds, No Accessory Muscle Use, No Respiratory Distress Cardiovascular: No Edema, No Gallop, No JVD, No Murmur, Irregularly Irregular Gastrointestinal: Normal Bowel Sounds, No Organomegaly, No Pulsatile Mass, Non Tender, Soft Back: Normal Inspection, No CVA Tenderness, No Vertebral Tenderness Extremity: Normal Capillary Refill, Normal Inspection, Normal Range of Motion, Non Tender, No Calf Tenderness, No Pedal Edema Neurologic/Psychiatric: Alert, Oriented x3, No Motor/Sensory Deficits, Normal Mood/Affect, Motor Weakness (generalized legs greater than arms) Skin: Normal Color, Warm/Dry Lymphatic: No Adenopathy Results/Procedures Lab Laboratory Tests 07/28/19 06:55 Patient resulted labs reviewed. FIM Transfers Therapy Code Descriptions/Definitions Functional [place] Measure: 0=Not Assessed/NA 4=Minimal Assistance 1=Total Assistance 5=Supervision or Setup 2=Maximal Assistance 6=Modified [place] 3=Moderate Assistance 7=Complete [place] Therapy Quality Codes: 6 Independent with activity with or without an assistive device 5 Patient requires set up or clean up by helper. Patient completes activity by themselves 4 Supervision or touching assist (CGA). [place] provide cues , steadying assist 3 The helper provides less than half the effort to complete the activity 2 The helper provides more than half the effort to complete the activity 1 Dependent. The helper does all the effort to complete an activity 7 Patient refused to complete or attempt activity 9 The patient did not perform the activity before the current illness or injury 88 Not attempted due to Medical conditions or safety concerns Transfers (B, C, W/C) (FIM): 4 (Pt required FWW. Pt needs verbal cues to use arm rests to push up on instead of FWW. CGA for safety.) Scootin Rollin Roll Left to Right (QC): 5 Supine to/from Sit: 6 Sit to/from Stand: 4 Sit to Lying (QC): 5 Sit to Stand (QC): 5 Chair/Vxr-qt-Ghabf Xfer(QC): 4 Bed to/from Chair: 6 Car Transfer (QC): 4 Gait Training Does the Patient Walk?: Yes Gait (FIM): 4 Distance (FIM): 3=150 ft Distance: 150 Walk 10 feet (QC): 4 Walk 50 ft with 2 Turns(QC): 4 Walk 150 ft (QC): 4 Walking 10ft/uneven surface-QC: 4 Gait Level of Assist: 4 Gait Persons Needed: 1 Gait Assistive Device: FWW Wheelchair Training Does the Pt Use a Wheelchair?: No Stair Training Stairs (FIM): 2 #of Steps: 4 1 Step (curb) (QC): 4 4 Steps (QC): 4 12 Steps (QC): 88 Level of Assist: 4 Balance Picking up an Object (QC): 88 Mental Status/Objective Comprehension: 6 Expression: 6 Social Interaction: 7 Problem Solvin Memory: 4 ADL-Treatment Feedin Eating (QC): 7 Groomin (Pt brushed hair and teeth standing at sink in room, SBA safety.) Oral Hygiene (QC): 4 Bathin (Pt able to wash, cleanse, and dry by self, supervision. SBA while standing. ) Bathing Location: L Arm, R Arm, L Upper Leg, R Upper Leg, L Lower Leg (including foot), R Lower Leg (including foot), Chest, Abdomen, Buttocks, Perineal Area Shower/Bathe Self (QC): 4 Upper Extremity Dressin (Pt obtained clothing from closet using FWW. Pt doffed bra and shirt by self while sitting on shower bench. Pt donned bra and shirt by self sitting in chair in room, supervision. ) Upper Body Dressing (QC): 4 (Supervision) Lower Extremity Dressin (Pt able to obtain clothing from closet using FWW. Pt doffed underwear and pants by self sitting on shower bench, SBA for safety wh ile standing. Pt donned briefs, pants, socks and shoes by self sitting in chair in room, SBA while standing to hike briefs and pants above waist, Supervision. ) Lower Body Dressing (QC): 4 On/Off Footwear (QC): 4 Toiletin (Pt able to manage clothing properly before and after sitting. Pt able to cleanse self after voiding, SBA while standing, supervision. ) Toileting Hygiene (QC): 4 Toilet/Commode Transfer: 5 (Supervision for safety. Pt uses FWW and grabbars.) Toilet Transfer (QC): 4 Shower: 5 (Supervision for safety using grabbars, FWW and shower bench.) Assessment/Plan Assessment and Plan Assess & Plan/Chief Complaint Plan: Continued meds from 4th floor Monitor BP and HR for RVR Strengthen and work on stairs in order to go home with son Cancer treatment per Dr Mejía IRF protocol Cardiology consultation is appreciated Monitor hgb and sodium level Fluid restriction for now at 1500cc/day and sodium level is 130 today Somatic complaints are continued Very debilitated may need NH Transfused 1 unit of blood and noted + hemoccult stools so holding Eliquis and she will speak to her Oncologist tomorrow regarding the need for endoscopy (1) Debility (2) Atrial fibrillation with RVR (3) Congestive heart failure Status: Acute (4) Hypokalemia (5) Anemia of chronic disease (6) Weakness (7) Non-small cell carcinoma of lung (8) Diastolic dysfunction Status: Acute (9) Afib (10) Transfusion of blood during current hospitalization (11) Dark stools (12) Dementia (13) Somatic complaints, multiple (14) Occult blood in stools MARIA GUADALUPE VELASQUEZ DO Jul 28, 2019 09:46
[2019-07-28] MEDS: meTOprolol TARTRATE 50 MG (LOPRESSOR) TAB PO SCH ×2 (09:52→20:03)
[2019-07-28] MEDS: SENNA W/DOCUSATE (SENOKOT S) TABLET PO SCH ×2 (09:54→20:19)
--- NOTE | 2019-07-28 10:25 | NUR ---
Pastoral care visit.
--- NOTE | 2019-07-28 10:31 | Physical Therapy Daily Note ---
PT Daily Note-Current Subjective Pt sitting in recliner upon arrival. Pt agrees to PT. Pain Numeric Pain Scale: 5-Moderate Pain Location: Right, Left Location Body Site: Hip Pain Description: Ache Comment: Pt reports pain for CA on R hip and Sciatic pain on L. Mental Status Patient Orientation: Person, Place, Situation Transfers Therapy Code Descriptions/Definitions Functional [place] Measure: 0=Not Assessed/NA 4=Minimal Assistance 1=Total Assistance 5=Supervision or Setup 2=Maximal Assistance 6=Modified [place] 3=Moderate Assistance 7=Complete [place] Therapy Quality Codes: 6 Independent with activity with or without an assistive device 5 Patient requires set up or clean up by helper. Patient completes activity by themselves 4 Supervision or touching assist (CGA). [place] provide cues , steadying assist 3 The helper provides less than half the effort to complete the activity 2 The helper provides more than half the effort to complete the activity 1 Dependent. The helper does all the effort to complete an activity 7 Patient refused to complete or attempt activity 9 The patient did not perform the activity before the current illness or injury 88 Not attempted due to Medical conditions or safety concerns Scootin Sit to/from Stand: 5 Sit to Stand (QC): 5 Weight Bearing Right Lower Extremity: Right Full Weight Bearing Left Lower Extremity: Left Full Weight Bearing Gait Training Does the Patient Walk?: Yes Gait (FIM): 5 Distance (FIM): 3=150 ft Distance: 175' Walk 10 feet (QC): 5 Walk 50 ft with 2 Turns(QC): 5 Walk 150 ft (QC): 5 Gait Level of Assist: 5 Gait Persons Needed: 1 Gait Assistive Device: FWW Pt needs VC for walking w/in FWW. Wheelchair Training Does the Pt Use a Wheelchair?: No Exercises Seated Therapy Exercises: Ankle pumps, Long arc quads, Hip flexion, Kicking activity, Hamstring Curls Seated Reps: 15 Standing: Hamstring curls, 3 way Ex=Flex, Abd, Ext Standing Reps: 15 Treatments Pt transfers from recliner to standing. Pt ambulates in hallway. Pt completes Seated Ex followed by Standing EX at //bars. Pt takes RB as needed for fatigue and pain. Pt returns to room to rest at end of tx with all needs met, call light next to pt. Assessment Current Status: Good Progress Pt reports feeling nauseated during tx, needing frequent RB. PT Short Term Goals Short Term Goals Time Frame: Jul 30, 2019 Transfers (B,C,W/C) (FIM): 6 Gait (FIM): 5 PT Low Altitude Air Defense Gunner Goals Half-Way Goals PT Half-Way Goals Time Frame: Aug 06, 2019 Transfers (B,C,W/C) (FIM): 7 Sit to Lying (QC): 6 Lying-Sitting on Side/Bed(QC): 6 Sit to Stand (QC): 6 Rollin Roll Left to Right (QC): 6 Chair/Klz-zk-Yvdzd Xfer(QC): 6 Car Transfer (QC): 6 Does the Patient Walk: Yes Gait (FIM): 6 Gait distance (FIM): 3=150 ft Walk 10 feet (QC): 6 Walk 10ft-Uneven Surface(QC): 6 Walk 50ft with 2 Turns (QC): 6 Walk 150 ft (QC): 6 Gait Assistive Device: FWW (or least restrictive device) Stairs (FIM): 5 # of Steps: 4 1 Step (curb) (QC): 6 4 Steps (QC): 6 12 Steps (QC): 6 Picking up an Object (QC): 88 PT Plan Problem List Problem List: Activity Tolerance, Functional Strength, Gait Treatment/Plan Treatment Plan: Continue Plan of Care Treatment Plan: Bed Mobility, Education, Functional Activity Phil, Functional Strength, Group Therapy, Gait, Safety, Therapeutic Exercise, Transfers Treatment Duration: Aug 06, 2019 Frequency: At least 5 of 7 days/Wk (IRF) Estimated Hrs Per Day: 1.5 hours per day Patient and/or Family Agrees t: Yes Safety Risks/Education Patient Education: Gait Training, Transfer Techniques, Correct Positioning, Safety Issues Teaching Recipient: Patient Teaching Methods: Discussion Response to Teaching: Verbalize Understanding Time/GCodes Time In: 945 Time Out: 1030 Total Billed Treatment Time: 45 Total Billed Treatment 1, GT (15m) & EX x2 (30m) JOSSELYN BATES PATIENT CARE PROVIDER Jul 28, 2019 10:31
--- NOTE | 2019-07-28 11:21 | Progress Note - Cardiology ---
Cardiology SOAP Progress Note Subjective: Sitting up in bed. States she has had dark, tarry, lose stools. No c/o CP, palpitations, syncope or near syncope. C/O nausea overnight. Objective: I&O/Vital Signs 07/28/19 07/28/19 07/28/19 05:55 06:42 09:10 Temp 97.7 Pulse 74 78 Resp 18 B/P (MAP) 111/65 (80) 104/46 (65) Pulse Ox 98 96 O2 Delivery Room Air Room Air Weight (Pounds): 121 Weight (Ounces): 4.0 Weight (Calculated Kilograms): 54.210273 Constitutional: AAO x 3, well-developed, well-nourished Respiratory: No accessory muscle use, No respiratory distress; chest expansion is symmetric, chest is bilaterally symmetric, lungs clear to auscultation Cardiovascular: irregularly irregular; No JVD; S1 and S2 Gastrointestional: No tender; soft, round, audible bowel sounds Extremities: no lower extremity edema bilateral Neurologic/Psychiatric: grossly intact, power is 5/5 both on sides Skin: No rash on exposed areas, No ulcerations on exposed areas Results/Procedures: Labs Laboratory Tests 07/28/19 00:41: Stool Occult Blood Immunoassay POSITIVEH 07/28/19 06:55: White Blood Count 15.4H, Red Blood Count 3.06L, Hemoglobin 8.5#L, Hematocrit 26L , Mean Corpuscular Volume 86, Mean Corpuscular Hemoglobin 28, Mean Corpuscular Hemoglobin Concent 32, Red Cell Distribution Width 20.5H, Platelet Count 334, Mean Platelet Volume 9.7, Neutrophils (%) (Auto) 81H, Lymphocytes (%) (Auto) 8L, Monocytes (%) (Auto) 9, Eosinophils (%) (Auto) 2, Basophils (%) (Auto) 0, Neutrophils # (Auto) 12.6H, Lymphocytes # (Auto) 1.2, Monocytes # (Auto) 1.4H, Eosinophils # (Auto) 0.3, Basophils # (Auto) 0.0, Neutrophils % (Manual) 84, Lymphocytes % (Manual) 4, Monocytes % (Manual) 11, Eosinophils % (Manual) 1, Basophils % (Manual) 0, Band Neutrophils 0, Anisocytosis MODERATE, Elliptocytes SLIGHT, Sodium Level 130L, Potassium Level 5.1H, Chloride Level 100, Carbon Dioxide Level 21, Anion Gap 9, Blood Urea Nitrogen 19H, Creatinine 0.72, Estimat Glomerular Filtration Rate > 60, BUN/Creatinine Ratio 26, Glucose Level 98, Calcium Level 8.2L A/P: Assessment: Anemia of undetermined etiology - GI bleeding suspected - managed by Dr Rosa HEREDIA with Eliquis - currently being withheld d/t worsening of anemia and melena 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 A-fib with RVR at time of admission - currently controlled Thryroid goiter: Thyroid u/s of 04/21/17: Multiple bilateral thyroid nodules predominately solid and showed varying degrees of elements of intralesional cystic degeneration. Their multiplicity and appearance is most suggestive of multiple adenomas and goiterous disease. The dominant mass in the lower pole of the right lobe shows some lobulation of its fairly well-defined borders as well as some coarse intralesional calcifications Coronary artery disease, moderate in the left coronary system and moderate to moderately severe in the right coronary system on cardiac catheterization of 08/10/2013. MPI of 04/23/17 did not show any significant ischemia and LVEF was normal. Last echo of 12/08/18: LVEF 55-60%, PASP 30 mmHg mmHg, mild MR H/o diastolic congestive heart failure which currently appears compensated. Hypertension with left ventricular hypertrophy Hypertension, labile. History of R lung wedge resection for non-small cell carcinoma in March [address] Mccord at [facility]. The patient is following with Dr Mejía of the Oncology services at [facility] History of hyperlipidemia being treated with statin therapy. Left bundle branch block. 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, now clinically resolved Impaired fasting glucose, followed by pcp AAA screen of June 04, 2017: No evidence of AAA Plan: * OAC currently on hold d/t another episode of melena and worsening of H/H requiring transfusion * Anemia of undetermined etiology being managed by medical services. Advise further work up as soon as possible to determine source of bleeding and so that the source may be treated. Management by medical services * Monitor lab closely Physician Assessment Physician Assessment No cp or palp or syncope Notes some improvement in shortness of breath Notes gen malaise and weakness Lungs: fair air entry, prolonged exp Cor: reg Ext: no c/c/e A&R * As documented in our note above that I updated (italics) and as noted below * We strongly recommend that the source of suspected blood loss be found and treated so that we can resume her oral anticoagulation for stroke prophylaxis. I explained this recommendation of ours to the patient as well. She understands and will discuss this with her primary care providers MARIZA BAEZ SCREW MACHINE ADJUSTER AUTOMATIC Jul 28, 2019 11:21 JIM OLIVO MD FACP FAC CCDS Jul 28, 2019 14:45
--- NOTE | 2019-07-28 11:49 | Speech Therapy Daily Note ---
Speech Daily Progress Note Subjective Date Seen by Provider: Jul 28, 2019 Time Seen by Provider: 00:30 The patient was dozing in her recliner when I entered her room. Objective The patient completed memory exercises with "fill in the blank" at 80% with moderate verbal cues. Assessment Assessment Current Status: Fair Progress Treatment Plan Continue Plan of Care Communication Comprehension: 6 Expression: 6 Social Cognition Social Interaction: 7 Problem Solvin Memory: 4 Speech Short Term Goals Short Term Goals Short Term Goals 1) The patient will complete memory tasks related to her daily needs at 90% or greater. 2) The patient will complete problem solving tasks related to her daily needs at 90% or greater. 3) The patient will complete safety awareness tasks related to her daily needs at 90% or greater. Speech Nuclear Operator Goals Custodial Goals The patient will improve cognitive function so that she may return safely. Speech-Plan Patient/Family Goals Patient/Family Goals: The patient plans on returning home post rehab. Her son is near by for any assistance she may need. Treatment Plan Speech Therapy Treatment Plan: Continue Plan of Care The patient is progressing toward meeting ST goals. Treatment Duration: Aug 07, 2019 Frequency: 5 times per week Estimated Hrs Per Day: .5 hour per day Rehab Potential: Good Barriers to Learning: Patient has cognitive deficits. Pt/Family Agrees to Plan: Yes Safety Risks/Education Teaching Recipient: Patient Teaching Methods: Demonstration, Discussion Response to Teaching: Verbalize Understanding, Return Demonstration Education Topics Provided: Continued communication of wants/needs Time Speech Therapy Time In: 10:30 Speech Therapy Time Out: 11:00 Total Billed Time: 30 Billed Treatment Time 1, JEREMÍAS Franz Jul 28, 2019 11:49
--- NOTE | 2019-07-28 13:07 | Physical Therapy Daily Note ---
PT Daily Note-Current Subjective Pt sitting in recliner finishing lunch upon arrival. Pt agrees to PT. Pain Numeric Pain Scale: 5-Moderate Pain Location: Left Location Body Site: Hip Pain Description: Ache Comment: Pt reports Sciatic pain in L hip while EX. Mental Status Patient Orientation: Person, Confused, Place Transfers Therapy Code Descriptions/Definitions Functional [place] Measure: 0=Not Assessed/NA 4=Minimal Assistance 1=Total Assistance 5=Supervision or Setup 2=Maximal Assistance 6=Modified [place] 3=Moderate Assistance 7=Complete [place] Therapy Quality Codes: 6 Independent with activity with or without an assistive device 5 Patient requires set up or clean up by helper. Patient completes activity by themselves 4 Supervision or touching assist (CGA). [place] provide cues , steadying assist 3 The helper provides less than half the effort to complete the activity 2 The helper provides more than half the effort to complete the activity 1 Dependent. The helper does all the effort to complete an activity 7 Patient refused to complete or attempt activity 9 The patient did not perform the activity before the current illness or injury 88 Not attempted due to Medical conditions or safety concerns Weight Bearing Right Lower Extremity: Right Full Weight Bearing Left Lower Extremity: Left Full Weight Bearing Exercises Supine Ex: Ankle pumps, Quad Set, Glut sets, Scooting, Straight leg raise, Hip abd/add Supine Reps: 20 (2 sets wih RB as needed) Treatments Pt completes Supine Ex in recliner with RB as needed for fatigue and Sciatic pain. Assessment Current Status: Fair Progress Pt is limited by pain during EX. PT Short Term Goals Short Term Goals Time Frame: Jul 30, 2019 Transfers (B,C,W/C) (FIM): 6 Gait (FIM): 5 PT Mcc Goals Personal Care Aid Goals PT Personal Care Aid Goals Time Frame: Aug 06, 2019 Transfers (B,C,W/C) (FIM): 7 Sit to Lying (QC): 6 Lying-Sitting on Side/Bed(QC): 6 Sit to Stand (QC): 6 Rollin Roll Left to Right (QC): 6 Chair/Pdb-gx-Zeytk Xfer(QC): 6 Car Transfer (QC): 6 Does the Patient Walk: Yes Gait (FIM): 6 Gait distance (FIM): 3=150 ft Walk 10 feet (QC): 6 Walk 10ft-Uneven Surface(QC): 6 Walk 50ft with 2 Turns (QC): 6 Walk 150 ft (QC): 6 Gait Assistive Device: FWW (or least restrictive device) Stairs (FIM): 5 # of Steps: 4 1 Step (curb) (QC): 6 4 Steps (QC): 6 12 Steps (QC): 6 Picking up an Object (QC): 88 PT Plan Problem List Problem List: Activity Tolerance, Functional Strength, Safety Treatment/Plan Treatment Plan: Continue Plan of Care Treatment Plan: Bed Mobility, Education, Functional Activity Phil, Functional Strength, Group Therapy, Gait, Safety, Therapeutic Exercise, Transfers Treatment Duration: Aug 06, 2019 Frequency: At least 5 of 7 days/Wk (IRF) Estimated Hrs Per Day: 1.5 hours per day Patient and/or Family Agrees t: Yes Safety Risks/Education Patient Education: Correct Positioning, Safety Issues Teaching Recipient: Patient Teaching Methods: Discussion Response to Teaching: Reinforcement Needed Time/GCodes Time In: 1245 Time Out: 1315 Total Billed Treatment Time: 30 Total Billed Treatment 1, EX x2 (30m) JOSSELYN BATES SUMMER ASSOCIATE Jul 28, 2019 13:07
--- NOTE | 2019-07-28 13:44 | NUR ---
Notified by CHARLY that patient is concerned about her ability to pay her monthly rent. This worker was successful in facilitating a phone call between patient and [facility]. This concern addressed and resolved.
--- NOTE | 2019-07-28 15:41 | NUR ---
Spoke with patient at Physician request about allowing a surgeon to investigate blood in stool, along with possiblility that surgeon may want to perform a colonoscopy. Patient is unsure of how long it has been since she had her last colonoscopy, stating she thinks it may have been two years ago. Patient prefers to discuss matters with her Oncologist, Dr. Mejía, at [facility] in [place] before proceeding. Dr. Lee notified. This nurse called Dr. Mejía's office to confirm appointment and inform them of positive Occult Blood at patient request. Release of information signed by patient. At Dr. Mejía's request, most recent labs faxed.
[2019-07-28 17:10] VITALS: BP 124/72
[2019-07-29] MEDS: HYDROcodone/APAP 5 MG/325 MG (LORTAB) TAB PO PRN ×5 (00:42→20:35)
[2019-07-29 05:15] LABS: HEMOGLOBIN 8.1 G/DL (11.5-16.0); MEAN PLATELET VOLUME 9.5 FL (7.4-10.4); WHITE BLOOD COUNT 13.3 10^3/uL (4.3-11.0)
[2019-07-29 05:38] LABS: BUN/CREATININE RATIO 23; CALCIUM 8.3 MG/DL (8.5-10.1); CARBON DIOXIDE 22 MMOL/L (21-32); CHLORIDE 101 MMOL/L (98-107); CREATININE SERUM 0.74 MG/DL (0.60-1.30); GFR ESTIMATED > 60; GLUCOSE 100 MG/DL (70-105); POTASSIUM 5.2 MMOL/L (3.6-5.0); SODIUM 132 MMOL/L (135-145)
[2019-07-29 05:52] VITALS: BP 126/65
--- NOTE | 2019-07-29 06:23 | Progress Note - Hospitalist ---
[facility] 07/29/19 0623: Progress Note Prior to Mrs. Munson hospitalization, she was able to mainly fulfill her ADLs independently with some assistance from her son managing the yard. The son has helped her do this since the passing of her second hubsand a few years ago. At that time she was starting to notice some decrease in strength, but wasn't enough to impede her ability to function. Since her hopsitalizaiton she has noticed a decrease in strength and loss of independence. She also states that her sciatica is affecting her more. She lives with her son in [place] where she was able to go up the 14 stairs that he has, but recently doesn't feel like she'd be able to go up those independently. She also has a home her in [place]. She also has a cat that lives with her named, Marcus. 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 She used to smoke, but quit in the 's. ANITA VELASQUEZ DO 07/29/19 1127: Supervisory-Addendum Brief Verification & Attestation Participated in pt care: history, MDM, physical Personally performed: exam, history, MDM, supervision of care Care discussed with: Medical Student Procedures: n/a Results interpretation: Verified all documentation Verification and Attestation of Medical Student E/M Service A medical student performed and documented this service in my presence. I reviewed and verified all information documented by the medical student and made modifications to such information, when appropriate. I personally performed the physical exam and medical decision making. Anita Velasquez, Jul 29, 2019,11:[address] [facility] Jul 29, 2019 06:23 ANITA VELASQUEZ DO Jul 29, 2019 11:27
[2019-07-29] MEDS: CATHETER FLUSH 10 ML SYR IV SCH ×3 (06:43→22:20)
--- NOTE | 2019-07-29 07:22 | Occupational Ther Daily Note ---
OT Current Status-Daily Note Subjective Pt alert, sleeping in bed. Pt agrees to therapy. Pt states that she is leaving at 10:00 for chemo. Explained to pt that she will get her therapies before she leaves. No c/o pain. Mental Status/Objective Patient Orientation: Person, Place, Time, Situation Therapy Code Descriptions/Definitions Functional [place] Measure: 0=Not Assessed/NA 4=Minimal Assistance 1=Total Assistance 5=Supervision or Setup 2=Maximal Assistance 6=Modified [place] 3=Moderate Assistance 7=Complete [place] Attachments: Central Line ADL-Treatment Pt tends to abandon the FWW in the room. Pt focuses on tasks to be completed then gets up walks quickly to area, needing cues to use FWW for safety and conserve energy. When pt uses FWW she slows down and is able to complete tasks longer without SOA and fatigue. Pt is impulsive and does not demonstrate education on new energy conservation techniques. Pt does sit down or places chairs to have a place for recovery breaks which has been her routine prior to rehab stay. Pt requires frequent rest breaks due decreased activity tolerance. Therapy Code Descriptions/Definitions Functional [place] Measure: 0=Not Assessed/NA 4=Minimal Assistance 1=Total Assistance 5=Supervision or Setup 2=Maximal Assistance 6=Modified [place] 3=Moderate Assistance 7=Complete [place] Therapy Quality Codes: 6 Independent with activity with or without an assistive device 5 Patient requires set up or clean up by helper. Patient completes activity by themselves 4 Supervision or touching assist (CGA). [place] provide cues , steadying assist 3 The helper provides less than half the effort to complete the activity 2 The helper provides more than half the effort to complete the activity 1 Dependent. The helper does all the effort to complete an activity 7 Patient refused to complete or attempt activity 9 The patient did not perform the activity before the current illness or inju ry 88 Not attempted due to Medical conditions or safety concerns Grooming (FIM): 5 (Pt sitting in chair at sink in room. Pt able to brush hair and teeth by self. Pt has difficulty with automatic water dispenser in room. ) Oral Hygiene (QC): 4 Bathing (FIM): 5 (Pt required long handled shower head and shower bench. Pt able to wash, rinse, and dry by self, supervision due to impulsiveness. ) Bathing Location: L Arm, R Arm, L Upper Leg, R Upper Leg, L Lower Leg (including foot), R Lower Leg (including foot), Chest, Abdomen, Buttocks, Perineal Area Shower/Bathe Self (QC): 4 Upper Body (FIM): 5 (Pt used FWW to obtain clothing from closet. Pt doffed shirt by self sitting on shower bench. Pt donned shirt by self sitting on chair in room by self, supervision. ) Upper Body Dressing (QC): 4 Lower Body Dressing (FIM): 5 (Pt obtained clothing from closet using FWW. Pt doffed underwear and pants sitting on shower bench. Pt donned underwear, pants, socks and shoes sitting on chair in room, supervision. ) Lower Body Dressing (QC): 4 On/Off Footwear (QC): 4 Toileting (FIM): 5 (Pt able to manage clothing properly before and after voiding. Pt able to cleanse self, supervision. ) Toileting Hygiene (QC): 4 Transfers (B, C, W/C) (FIM): 5 (Pt requires FWW, supervision.) Toilet/Commode Transfer (FIM): 5 (Pt requires FWW and grab bar, supervision due to impulsivness. ) Shower Transfer(FIM): 5 (Pt requires FWW, grab bar and shower bench, supervision. ) Other Treatment Pt ambulated using FWW to therapy gym. Pt participated upper body strengthening activity for duration 10 minutes at 20 watt resistance to increase L/R UE for daily functional activity tasks. Pt ambulated using FWW back to room. Pt in chair with call light and phone in reach. ST in room. Education OT Patient Education: Energy conservation, Safety issues Teaching Methods: Discussion Response to Teaching: Unable to Return Demonstration, Reinforcement Needed OT Short Term Goals Short Term Goals Transfers (B,C,W/C) (FIM): 6 1=Demonstrate adherence to instructed precautions during ADL tasks. 2=Patient will verbalize/demonstrate understanding of assistive devices/modifications for ADL. 3=Patient will improve strength/tolerance for activity to enable patient to perform ADL's. OT Dairy Equipment Mechanic Goals Long-Term Goals Time Frame: Aug 06, 2019 Eating (FIM): 6 Eating (QC): 6 Groomin Oral Hygiene (QC): 6 Bathing(FIM): 5 Shower/Bathe Self (QC): 4 Upper Body Dressing(FIM): 6 Upper Body Dressing (QC): 6 Lower Body Dressing(FIM): 6 Lower Body Dressing (QC): 6 On/Off Footwear (QC): 6 Toileting(FIM): 6 Toileting Hygiene (QC): 6 Transfers (B,C,W/C) (FIM): 6 Toilet/Commode Transfer(FIM): 6 Toilet/Commode Transfer (QC): 6 Additional Goals: 1-Demonstrate ADL Tasks, 2-Verbalize Understanding, 3- ImproveStrength/Phil 1=Demonstrate adherence to instructed precautions during ADL tasks. 2=Patient will verbalize/demonstrate understanding of assistive devices/modifications for ADL. 3=Patient will improve strength/tolerance for activity to enable patient to perform ADL's. OT Education/Plan Problem List/Assessment Assessment: Decreased Activ Tolerance, Decreased Safety Aware Discharge Recommendations Plan/Recommendations: Continue POC Treatment Plan/Plan of Care Patient would benefit from OT for education, treatment and training to promote independence in ADL's, mobility, safety and/or upper extremity function for ADL's. Plan of Care: ADL Retraining, Functional Mobility, Group Exercise/Act as Ind, UE Funct Exercise/Act Treatment Duration: Aug 06, 2019 Frequency: At least 5 of 7 days/Wk (IRF) Estimated Hrs Per Day: 1.5 hours per day Agreement: Yes Rehab Potential: Good Time/GCodes Start Time: 07:00 Stop Time: 08:15 Total Time Billed (hr/min): 75 Billed Treatment Time 1 visit- ADL 4 (60 min) EX 1 (15 min) RADHA WITT Jul 29, 2019 07:22
[2019-07-29] MEDS: MAGNESIUM OXIDE (MAG-OX)400 MG TAB PO SCH ×2 (08:19→19:08)
[2019-07-29] MEDS: FOLIC ACID 1 MG TAB PO SCH (08:19)
[2019-07-29] MEDS: meTOprolol TARTRATE 50 MG (LOPRESSOR) TAB PO SCH ×2 (08:20→20:34)
[2019-07-29] MEDS: FUROSEMIDE 20 MG (LASIX) TAB PO SCH (08:20)
[2019-07-29] MEDS: DILTIAZEM 180 MG (CARDIZEM CD) CAP PO SCH ×2 (08:21→20:34)
[2019-07-29 08:22] VITALS: BP 129/76
[2019-07-29] MEDS: PANTOPRAZOLE 40 MG (PROTONIX) TAB PO SCH (08:22)
[2019-07-29] MEDS: ONDANSETRON 4 MG (ZOFRAN) ORAL DISSOLVE TAB PO PRN (09:03)
--- NOTE | 2019-07-29 09:29 | Speech Therapy Daily Note ---
Speech Daily Progress Note Subjective Date Seen by Provider: Jul 29, 2019 Time Seen by Provider: 00:30 The patient is leaving at 10:00 for her weekly chemo treatment. She will return to the ARU this afternoon. Objective The patient completed safety awareness q/a which apply to her daily routine at 80% with moderate verbal cues and/or redirection. Treatment Plan Continue Plan of Care Communication Comprehension: 6 Expression: 6 Social Cognition Social Interaction: 7 Problem Solvin Memory: 4 Speech Short Term Goals Short Term Goals Short Term Goals 1) The patient will complete memory tasks related to her daily needs at 90% or greater. 2) The patient will complete problem solving tasks related to her daily needs at 90% or greater. 3) The patient will complete safety awareness tasks related to her daily needs at 90% or greater. Speech Payroll Associate Goals Payroll Associate Goals The patient will improve cognitive function so that she may return safely. Speech-Plan Patient/Family Goals Patient/Family Goals: The patient plans on returning home with her son's support post rehab. Treatment Plan Speech Therapy Treatment Plan: Continue Plan of Care The patient is progressing toward ST goals. Treatment Duration: Aug 07, 2019 Frequency: 5 times per week Estimated Hrs Per Day: .5 hour per day Rehab Potential: Good Barriers to Learning: The patient has cognitive deficits. Pt/Family Agrees to Plan: Yes Safety Risks/Education Teaching Recipient: Patient Teaching Methods: Discussion Response to Teaching: Verbalize Understanding Education Topics Provided: Safety within her room and during daily routine Time Speech Therapy Time In: 08:15 Speech Therapy Time Out: 08:45 Total Billed Time: 30 Billed Treatment Time 1CARLY BETHANIA ST Jul 29, 2019 09:29
[2019-07-29] MEDS: SENNA W/DOCUSATE (SENOKOT S) TABLET PO SCH ×2 (09:41→20:39)
--- NOTE | 2019-07-29 10:00 | NUR ---
Patient out of facility to appointment with Oncologist, Dr. Mejía at [facility] Oncology clinic in [place]. Accompanied by family members.
--- NOTE | 2019-07-29 11:05 | PM&R Progress Note ---
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 HPI: This is a 78yoWF clinic Pt of Dr. Raciel Dias who presents to the inpatient rehab after presenting to the hospital with severe weakness requiring a blood transfusion and monitoring atrial fibrillation. She is currently being treated for lung cancer at [facility] from Dr. Mejía, of which she quit smoking in the . Apparently her prior level of functioning was fully independent of her ADLs and ambulation with no assistive devices. She will be moving in to her son's house and he has multiple steps which will be worked on aggressively by PT in order for her to regain function in order for her to return to her sons house to live with him at discharge. At this current time Pt feels well, she is breathing well, she is just weak. Her bowels are moving. Subjective/Events-last exam Kym was seen today at 11:00 but did not see the doctor nor did she receive chemotherapy and she will not get chemo done until she is out of inpatient rehab Set Saturday for DC Safety concerns since she is so impulsive EGD and colonoscopy will be done as an outpatient and will consult Dr. Zapata since she doesn't have a preference Transfused 1 unit of blood to give her a boost Somatic issues continue Not full therapy hours today given the fact that she left for her oncology appointment in [place] today Loose stools so will hold bowel medications today Confusion discussed in team meeting which appears to be acute on chronic Conferred with RN Reviewed therapy notes Checked meds and labs Review of Systems General: Fatigue Neurological: Confusion Objective Exam Vital Signs Vital Signs Date Time Temp Pulse Resp B/P (MAP) Pulse Ox O2 Delivery O2 Flow Rate FiO2 07/29/19 19:20 Room Air 07/29/19 17:27 96.8 69 18 123/66 (85) 98 Capillary Refill : General Appearance: No Apparent Distress, WD/WN, Chronically ill, Cachetic, Thin HEENT: PERRL/EOMI, Normal ENT Inspection, Pharynx Normal, Moist Mucous Membranes Neck: Full Range of Motion, Normal Inspection, Non Tender, Supple Respiratory: Chest Non Tender, Lungs Clear, Normal Breath Sounds, No Accessory Muscle Use, No Respiratory Distress Cardiovascular: No Edema, No Gallop, No JVD, No Murmur, Irregularly Irregular Gastrointestinal: Normal Bowel Sounds, No Organomegaly, No Pulsatile Mass, Non Tender, Soft Back: Normal Inspection, No CVA Tenderness, No Vertebral Tenderness Extremity: Normal Capillary Refill, Normal Inspection, Normal Range of Motion, Non Tender, No Calf Tenderness, No Pedal Edema Neurologic/Psychiatric: Alert, Oriented x3, No Motor/Sensory Deficits, Normal Mood/Affect, Motor Weakness (generalized legs greater than arms) Skin: Normal Color, Warm/Dry Lymphatic: No Adenopathy Results/Procedures Lab Laboratory Tests 07/29/19 04:55 Patient resulted labs reviewed. FIM Transfers Therapy Code Descriptions/Definitions Functional [place] Measure: 0=Not Assessed/NA 4=Minimal Assistance 1=Total Assistance 5=Supervision or Setup 2=Maximal Assistance 6=Modified [place] 3=Moderate Assistance 7=Complete [place] Therapy Quality Codes: 6 Independent with activity with or without an assistive device 5 Patient requires set up or clean up by helper. Patient completes activity by themselves 4 Supervision or touching assist (CGA). [place] provide cues , steadying assist 3 The helper provides less than half the effort to complete the activity 2 The helper provides more than half the effort to complete the activity 1 Dependent. The helper does all the effort to complete an activity 7 Patient refused to complete or attempt activity 9 The patient did not perform the activity before the current illness or injury 88 Not attempted due to Medical conditions or safety concerns Transfers (B, C, W/C) (FIM): 5 (Pt requires FWW, supervision.) Scootin Rollin Roll Left to Right (QC): 5 Supine to/from Sit: 6 Sit to/from Stand: 5 Sit to Lying (QC): 5 Sit to Stand (QC): 5 Chair/Muj-tj-Dwzze Xfer(QC): 4 Bed to/from Chair: 6 Car Transfer (QC): 4 Gait Training Does the Patient Walk?: Yes Gait (FIM): 5 Distance (FIM): 3=150 ft Distance: 175' Walk 10 feet (QC): 5 Walk 50 ft with 2 Turns(QC): 5 Walk 150 ft (QC): 5 Walking 10ft/uneven surface-QC: 4 Gait Level of Assist: 5 Gait Persons Needed: 1 Gait Assistive Device: FWW Wheelchair Training Does the Pt Use a Wheelchair?: No Stair Training Stairs (FIM): 2 #of Steps: 4 1 Step (curb) (QC): 4 4 Steps (QC): 4 12 Steps (QC): 88 Level of Assist: 4 Balance Picking up an Object (QC): 88 Mental Status/Objective Comprehension: 6 Expression: 6 Social Interaction: 7 Problem Solvin Memory: 4 ADL-Treatment Feedin Eating (QC): 7 Groomin (Pt sitting in chair at sink in room. Pt able to brush hair and teeth by self. Pt has difficulty with automatic water dispenser in room. ) Oral Hygiene (QC): 4 Bathin (Pt required long handled shower head and shower bench. Pt able to wash, rinse, and dry by self, supervision due to impulsiveness. ) Bathing Location: L Arm, R Arm, L Upper Leg, R Upper Leg, L Lower Leg (including foot), R Lower Leg (including foot), Chest, Abdomen, Buttocks, Perineal Area Shower/Bathe Self (QC): 4 Upper Extremity Dressin (Pt used FWW to obtain clothing from closet. Pt doffed shirt by self sitting on shower bench. Pt donned shirt by self sitting on chair in room by self, supervision. ) Upper Body Dressing (QC): 4 Lower Extremity Dressin (Pt obtained clothing from closet using FWW. Pt doffed underwear and pants sitting on shower bench. Pt donned underwear, pants, socks and shoes sitting on chair in room, supervision. ) Lower Body Dressing (QC): 4 On/Off Footwear (QC): 4 Toiletin (Pt able to manage clothing properly before and after voiding. Pt able to cleanse self, supervision. ) Toileting Hygiene (QC): 4 Toilet/Commode Transfer: 5 (Pt requires FWW and grab bar, supervision due to impulsivness. ) Toilet Transfer (QC): 4 Shower: 5 (Pt requires FWW, grab bar and shower bench, supervision. ) Assessment/Plan Assessment and Plan Assess & Plan/Chief Complaint Plan: Continued meds from 4th floor Monitor BP and HR for RVR Strengthen and work on stairs in order to go home with son Cancer treatment per Dr Mejía IRF protocol Cardiology consultation is appreciated Monitor hgb and sodium level Fluid restriction for now at 1500cc/day and sodium level is 130 today Somatic complaints are continued Very debilitated may need NH Transfused 1 unit of blood and noted + hemoccult stools so holding Eliquis and she will speak to her Oncologist later regarding the need for endoscopy but he has recommended to obtain consult so will do that for outpatient scheduling (1) Debility (2) Atrial fibrillation with RVR (3) Congestive heart failure Status: Acute (4) Hypokalemia (5) Anemia of chronic disease (6) Weakness (7) Non-small cell carcinoma of lung (8) Diastolic dysfunction Status: Acute (9) Afib (10) Transfusion of blood during current hospitalization (11) Dark stools (12) Dementia (13) Somatic complaints, multiple (14) Occult blood in stools MARIA GUADALUPE VELASQUEZ DO Jul 29, 2019 11:05
--- NOTE | 2019-07-29 11:58 | Physical Therapy Daily Note ---
PT Daily Note-Current Subjective Pt sitting in chair in room upon arrival. Pt agrees to PT. 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 Mental Status Patient Orientation: Person, Confused, Place Transfers Therapy Code Descriptions/Definitions Functional [place] Measure: 0=Not Assessed/NA 4=Minimal Assistance 1=Total Assistance 5=Supervision or Setup 2=Maximal Assistance 6=Modified [place] 3=Moderate Assistance 7=Complete [place] Therapy Quality Codes: 6 Independent with activity with or without an assistive device 5 Patient requires set up or clean up by helper. Patient completes activity by themselves 4 Supervision or touching assist (CGA). [place] provide cues , steadying assist 3 The helper provides less than half the effort to complete the activity 2 The helper provides more than half the effort to complete the activity 1 Dependent. The helper does all the effort to complete an activity 7 Patient refused to complete or attempt activity 9 The patient did not perform the activity before the current illness or injury 88 Not attempted due to Medical conditions or safety concerns Scootin Sit to/from Stand: 5 Sit to Stand (QC): 5 Weight Bearing Right Lower Extremity: Right Full Weight Bearing Left Lower Extremity: Left Full Weight Bearing Gait Training Does the Patient Walk?: Yes Gait (FIM): 5 Distance (FIM): 3=150 ft Distance: 150' Walk 10 feet (QC): 5 Walk 50 ft with 2 Turns(QC): 5 Walk 150 ft (QC): 5 Gait Level of Assist: 5 Gait Persons Needed: 1 Gait Assistive Device: FWW Pt walks with slow antonia. Pt needs VC to keep FWW close & not leave it to side after transferring. Pt fatigues easily and needs frequent RB. Wheelchair Training Does the Pt Use a Wheelchair?: No Exercises Seated Therapy Exercises: Ankle pumps, Long arc quads, Hip flexion, Kicking activity, Glut set Seated Reps: 20 NuStep Minutes: 15 NuStep Workload: 4 Treatments Pt transfers from chair to standing then ambulates in hallway using FWW. Pt uses NuStep for 15m at WL 4 then takes RB. Pt completes Seated EX then returns to room to rest at end of tx. Pt has all needs met, call light next to pt. Assessment Current Status: Fair Progress Pt demonstrates confusion at times and needs VC for safety. Pt fatigues needing RB. PT Short Term Goals Short Term Goals Time Frame: Jul 30, 2019 Transfers (B,C,W/C) (FIM): 6 Gait (FIM): 5 PT Shelter Goals Pluck Separator Goals PT Pluck Separator Goals Time Frame: Aug 06, 2019 Transfers (B,C,W/C) (FIM): 7 Sit to Lying (QC): 6 Lying-Sitting on Side/Bed(QC): 6 Sit to Stand (QC): 6 Rollin Roll Left to Right (QC): 6 Chair/Wal-ws-Gmqub Xfer(QC): 6 Car Transfer (QC): 6 Does the Patient Walk: Yes Gait (FIM): 6 Gait distance (FIM): 3=150 ft Walk 10 feet (QC): 6 Walk 10ft-Uneven Surface(QC): 6 Walk 50ft with 2 Turns (QC): 6 Walk 150 ft (QC): 6 Gait Assistive Device: FWW (or least restrictive device) Stairs (FIM): 5 # of Steps: 4 1 Step (curb) (QC): 6 4 Steps (QC): 6 12 Steps (QC): 6 Picking up an Object (QC): 88 PT Plan Problem List Problem List: Activity Tolerance, Functional Strength, Safety Treatment/Plan Treatment Plan: Continue Plan of Care Treatment Plan: Bed Mobility, Education, Functional Activity Phil, Functional Strength, Group Therapy, Gait, Safety, Therapeutic Exercise, Transfers Treatment Duration: Aug 06, 2019 Frequency: At least 5 of 7 days/Wk (IRF) Estimated Hrs Per Day: 1.5 hours per day Patient and/or Family Agrees t: Yes Safety Risks/Education Patient Education: Gait Training, Transfer Techniques, Correct Positioning, Safety Issues Teaching Recipient: Patient Teaching Methods: Discussion Response to Teaching: Verbalize Understanding Time/GCodes Time In: 900 Time Out: 945 Total Billed Treatment Time: 45 Total Billed Treatment 1, GT (15m) & EX x2 (30m) JOSSELYN BATES PTA Jul 29, 2019 11:58
--- NOTE | 2019-07-29 15:15 | NUR ---
CASTING DIRECTOR met with patient to review team conference summary. As patient is standby assist with all activities, significantly close to baseline functioning, plans to reside with his son and is requesting discharge ZACH and order to resume chemotherapy treatments, team is recommended patient proceed with discharge on 96 with home health services for PT. Although patient is eager to discharge, she expresses extreme exhaustion from today's activities of therapy, oncology appointment in [place], lunch outing, and visit home. CASTING DIRECTOR and patient discussed how patient may have over exerted herself this day and reminded of the need to pace self. Patient is understanding of this. Patient is agreeable to discharge on 96. CASTING DIRECTOR will speak with patient's son to provide update in regards to recommendation.
--- NOTE | 2019-07-29 16:00 | NUR ---
Patient returned from appointment with son. Patient is fatigued. Son states that he does not feel patient is ready to go home. Patient and son express that they had stopped at their home to see her cats and they went out for lunch. States that getting up stairs was a struggle for patient. Visit to home occurred after doctor appoint and lunch outing. Reported to Therapy and Social work that patient had extended outing and was fatigued upon return. Educated Patient and Family that when a pass is given for a DrRomaine Appointment, they are to go to appointment and come right back to therapy.
[2019-07-29 17:27] VITALS: BP 123/66
--- NOTE | 2019-07-29 19:10 | NUR ---
bedside report received from ZAY HUERTA, assume care of pt
[2019-07-29 20:30] VITALS: BP 147/76
--- NOTE | 2019-07-29 20:34 | NUR ---
pt refused Senokot, c/o pain level 8/10 on numeric scale, Lortab 5 1 tab po given
--- NOTE | 2019-07-29 20:40 | NUR ---
assessments & interventions completed, see assessments & interventions
--- NOTE | 2019-07-29 21:35 | NUR ---
rates pain level 5/10 on numeric scale
[2019-07-29] MEDS: ACETAMINOPHEN 500 MG TAB (TYLENOL) PO PRN (22:20)
--- NOTE | 2019-07-29 22:20 | NUR ---
c/o pain level 8/10 on numeric scale, Tylenol 500mg po given
[2019-07-30] MEDS: HYDROcodone/APAP 5 MG/325 MG (LORTAB) TAB PO PRN ×5 (00:12→21:00)
--- NOTE | 2019-07-30 00:12 | NUR ---
c/o pain level 8/10 on numeric scale, Lortab 5 1 tab po given
--- NOTE | 2019-07-30 00:55 | NUR ---
resting quietly in bed, pain level 0/10 on flacc scale
[2019-07-30 06:00] VITALS: BP 132/69
--- NOTE | 2019-07-30 06:09 | NUR ---
c/o pain level 6/10 on numeric scale, Lortab 5 1 tab po given
[2019-07-30] MEDS: CATHETER FLUSH 10 ML SYR IV SCH ×3 (06:11→22:15)
--- NOTE | 2019-07-30 06:45 | NUR ---
resting quietly in bed, pain level 0/10 on flacc scale
--- NOTE | 2019-07-30 07:13 | NUR ---
bedside report given to ELYSSA HUERTA
[2019-07-30] MEDS: RT-ADVAIR HFA 115/21 MCG PER PUFF IH PRN ×2 (07:24→18:43)
--- NOTE | 2019-07-30 08:00 | NUR ---
STILL COMPLAINS OF LEFT LEG PAIN. STATES [facility] HELPS A LITTLE. TAKES PAIN MEDS REGULARLY FOR IT. STATES "YESTERDAY WORE ME OUT SO BAD ON MY PASS AND I'M STILL SO TIRED I COULD CRY".
--- NOTE | 2019-07-30 09:00 | NUR ---
DR. VARELA TEXTED ON NEW CONSULT.
--- NOTE | 2019-07-30 09:19 | Occupational Ther Daily Note ---
OT Current Status-Daily Note Subjective Pt in lying in bed. Nrsng in room upon OT arrival. Pt is feeling more tired today and wants to take things slow. Pt agrees to therapy. Mental Status/Objective Patient Orientation: Person, Place, Time, Situation Therapy Code Descriptions/Definitions Functional [place] Measure: 0=Not Assessed/NA 4=Minimal Assistance 1=Total Assistance 5=Supervision or Setup 2=Maximal Assistance 6=Modified [place] 3=Moderate Assistance 7=Complete [place] ADL-Treatment Pt requires rest break after every ADL activity due to decreased activity tolerance. Therapy Code Descriptions/Definitions Functional [place] Measure: 0=Not Assessed/NA 4=Minimal Assistance 1=Total Assistance 5=Supervision or Setup 2=Maximal Assistance 6=Modified [place] 3=Moderate Assistance 7=Complete [place] Therapy Quality Codes: 6 Independent with activity with or without an assistive device 5 Patient requires set up or clean up by helper. Patient completes activity by themselves 4 Supervision or touching assist (CGA). [place] provide cues , steadying assist 3 The helper provides less than half the effort to complete the activity 2 The helper provides more than half the effort to complete the activity 1 Dependent. The helper does all the effort to complete an activity 7 Patient refused to complete or attempt activity 9 The patient did not perform the activity before the current illness or injury 88 Not attempted due to Medical conditions or safety concerns Eating (FIM): 7 (Pt demonstrates ability to completes own set up and uses regular utensils.) Eating (QC): 6 Grooming (FIM): 6 (Pt stood at sink in room to brush teeth and hair. Safety concerns due to impulsivness. ) Oral Hygiene (QC): 6 Bathing (FIM): 6 (Pt able to wash, rinse and dry by self. Pt stands using grab bar to wash buttocks, SBA due to safety concerns for impuslivness. ) Bathing Location: L Arm, R Arm, L Upper Leg, R Upper Leg, L Lower Leg (including foot), R Lower Leg (including foot), Chest, Abdomen, Buttocks, Perineal Area Shower/Bathe Self (QC): 6 (safety concerns) Upper Body (FIM): 6 (Pt able to retrieve clothing from closet using FWW. Pt doffed shirt sitting on shower bench. Pt donned shirt sitting on chair in room. Safety concerns due to impulsivness. ) Upper Body Dressing (QC): 6 (Safety concerns) Lower Body Dressing (FIM): 6 (Pt retrieved clothing from closet using FWW. Pt doffed underwear and pants sitting on shower bench. Pt donned underwear and pants sitting in chair room. Pt able to don socks and shoes by sitting in chair. Safety concerns while standing due to impulsivness. ) Lower Body Dressing (QC): 6 (safety concerns) On/Off Footwear (QC): 6 Toileting (FIM): 6 (Pt able to manage clothing before and after voiding. Pt able to cleanse self after voiding. Safety concerns due to impulsivness. ) Toileting Hygiene (QC): 6 Transfers (B, C, W/C) (FIM): 6 (Pt requires FWW. Safety concerns due to impulsivness. ) Toilet/Commode Transfer (FIM): 6 (Pt requires FWW and grab bar. Safety concerns due to impulsivity. Pt plops down when sitting. ) Toilet Transfer (QC): 6 (safety concerns) Shower Transfer(FIM): 6 (Pt requires FWW, grab bar, and shower bench. Safety concerns due to impulsivity. Pt plops when sitting. ) Other Treatment Pt ambulated to therapy gym using FWW. Pt participated in shoulder ROM of arc to increase ROM to perform functional activity tasks. Pt participated in upper body strengthening exercise flexion/extension, abduction/adduction, and punches (triceps) 10 reps 2x each. Pt required frequent rest break due to being nauseous and fatigue from decreased activity tolerance. OT Short Term Goals Short Term Goals Transfers (B,C,W/C) (FIM): 6 1=Demonstrate adherence to instructed precautions during ADL tasks. 2=Patient will verbalize/demonstrate understanding of assistive devices/modifications for ADL. 3=Patient will improve strength/tolerance for activity to enable patient to perform ADL's. OT Usp Goals Usp Goals Time Frame: Aug 06, 2019 Eating (FIM): 6 (met-07/30/2019) Eating (QC): 6 (met-07/30/2019) Groomin (met-07/30/2019) Oral Hygiene (QC): 6 (met-07/30/2019) Bathing(FIM): 5 (met-07/30/2019) Shower/Bathe Self (QC): 4 (met-07/30/2019) Upper Body Dressing(FIM): 6 (met-07/30/2019) Upper Body Dressing (QC): 6 (-07/30/2019) Lower Body Dressing(FIM): 6 (-07/30/2019) Lower Body Dressing (QC): 6 (-07/30/2019) On/Off Footwear (QC): 6 (-07/30/2019) Toileting(FIM): 6 (met-07/30/2019) Toileting Hygiene (QC): 6 (met-07/30/2019) Transfers (B,C,W/C) (FIM): 6 (07/30/2019) Toilet/Commode Transfer(FIM): 6 (-07/30/2019) Toilet/Commode Transfer (QC): 6 (-07/30/2019) Additional Goals: 1-Demonstrate ADL Tasks, 2-Verbalize Understanding, 3- ImproveStrength/Phil 1=Demonstrate adherence to instructed precautions during ADL tasks. 2=Patient will verbalize/demonstrate understanding of assistive devices/modifications for ADL. 3=Patient will improve strength/tolerance for activity to enable patient to perform ADL's. OT Education/Plan Problem List/Assessment Assessment: Decreased Activ Tolerance Discharge Recommendations Plan/Recommendations: Continue POC Treatment Plan/Plan of Care Patient would benefit from OT for education, treatment and training to promote independence in ADL's, mobility, safety and/or upper extremity function for ADL's. Plan of Care: ADL Retraining, Functional Mobility, Group Exercise/Act as Ind, UE Funct Exercise/Act Treatment Duration: Aug 06, 2019 Frequency: At least 5 of 7 days/Wk (IRF) Estimated Hrs Per Day: 1.5 hours per day Agreement: Yes Rehab Potential: Good Time/GCodes Start Time: 08:00 Stop Time: 09:15 Total Time Billed (hr/min): 75 Billed Treatment Time 1 visit- ADL 3 (45 min) EX 2 (30 min) RADHA WITT Jul 30, 2019 09:19
--- NOTE | 2019-07-30 09:25 | PM&R Progress Note ---
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 HPI: This is a 78yoWF clinic Pt of Dr. Raciel Dias who presents to the inpatient rehab after presenting to the hospital with severe weakness requiring a blood transfusion and monitoring atrial fibrillation. She is currently being treated for lung cancer at [facility] from Dr. Mejía, of which she quit smoking in the . Apparently her prior level of functioning was fully independent of her ADLs and ambulation with no assistive devices. She will be moving in to her son's house and he has multiple steps which will be worked on aggressively by PT in order for her to regain function in order for her to return to her sons house to live with him at discharge. At this current time Pt feels well, she is breathing well, she is just weak. Her bowels are moving. Subjective/Events-last exam Somatic complaints continue. Pt may ultimately require halfway for additional support since she seems to need some additional security. Tired from day pass yesterday which she had lunch, she went to see her cat after she had seen her oncologist. Needs scope and that will be arranged as an outpatient with an EGD and colonoscopy. Hgb 8.1. Having bladder issues but her UA was done on the and was negative, nothing really has changed, she continues to have additional complaints. Vitals remain stable. No BM for two days but I did tell her we've stopped the Eliquis blood thinner due to bloody stools, melanin and hemoccult positive status and told her that the dark stools likely would improve now. Appetite still is very little and she is drinking a lot of water but she is still on fluid restriction of 1500 CCs because of the hyponatremia. Conferred with RN Reviewed therapy notes Checked meds and labs Review of Systems General: Fatigue, Appetite Musculoskeletal: back pain, foot pain Objective Exam Vital Signs Vital Signs Date Time Temp Pulse Resp B/P (MAP) Pulse Ox O2 Delivery O2 Flow Rate FiO2 07/30/19 18:43 97 Room Air 07/30/19 16:14 96.5 109 14 126/77 (93) Capillary Refill : General Appearance: No Apparent Distress, WD/WN, Chronically ill, Cachetic, Thin HEENT: PERRL/EOMI, Normal ENT Inspection, Pharynx Normal, Moist Mucous Membranes Neck: Full Range of Motion, Normal Inspection, Non Tender, Supple Respiratory: Chest Non Tender, Lungs Clear, Normal Breath Sounds, No Accessory Muscle Use, No Respiratory Distress Cardiovascular: No Edema, No Gallop, No JVD, No Murmur, Irregularly Irregular Gastrointestinal: Normal Bowel Sounds, No Organomegaly, No Pulsatile Mass, Non Tender, Soft Back: Normal Inspection, No CVA Tenderness, No Vertebral Tenderness Extremity: Normal Capillary Refill, Normal Inspection, Normal Range of Motion, Non Tender, No Calf Tenderness, No Pedal Edema Neurologic/Psychiatric: Alert, Oriented x3, No Motor/Sensory Deficits, Normal Mood/Affect, Motor Weakness (generalized legs greater than arms) Skin: Normal Color, Warm/Dry Lymphatic: No Adenopathy Results/Procedures Lab Patient resulted labs reviewed. FIM Transfers Therapy Code Descriptions/Definitions Functional [place] Measure: 0=Not Assessed/NA 4=Minimal Assistance 1=Total Assistance 5=Supervision or Setup 2=Maximal Assistance 6=Modified [place] 3=Moderate Assistance 7=Complete [place] Therapy Quality Codes: 6 Independent with activity with or without an assistive device 5 Patient requires set up or clean up by helper. Patient completes activity by themselves 4 Supervision or touching assist (CGA). [place] provide cues , steadying assist 3 The helper provides less than half the effort to complete the activity 2 The helper provides more than half the effort to complete the activity 1 Dependent. The helper does all the effort to complete an activity 7 Patient refused to complete or attempt activity 9 The patient did not perform the activity before the current illness or injury 88 Not attempted due to Medical conditions or safety concerns Transfers (B, C, W/C) (FIM): 5 (Pt requires FWW, supervision.) Scootin Rollin Roll Left to Right (QC): 5 Supine to/from Sit: 6 Sit to/from Stand: 5 Sit to Lying (QC): 5 Sit to Stand (QC): 5 Chair/Nkb-zs-Mrujh Xfer(QC): 4 Bed to/from Chair: 6 Car Transfer (QC): 4 Gait Training Does the Patient Walk?: Yes Gait (FIM): 5 Distance (FIM): 3=150 ft Distance: 150' Walk 10 feet (QC): 5 Walk 50 ft with 2 Turns(QC): 5 Walk 150 ft (QC): 5 Walking 10ft/uneven surface-QC: 4 Gait Level of Assist: 5 Gait Persons Needed: 1 Gait Assistive Device: FWW Wheelchair Training Does the Pt Use a Wheelchair?: No Stair Training Stairs (FIM): 2 #of Steps: 4 1 Step (curb) (QC): 4 4 Steps (QC): 4 12 Steps (QC): 88 Level of Assist: 4 Balance Picking up an Object (QC): 88 Mental Status/Objective Comprehension: 6 Expression: 6 Social Interaction: 7 Problem Solvin Memory: 4 ADL-Treatment Feedin Eating (QC): 7 Groomin (Pt sitting in chair at sink in room. Pt able to brush hair and teeth by self. Pt has difficulty with automatic water dispenser in room. ) Oral Hygiene (QC): 4 Bathin (Pt required long handled shower head and shower bench. Pt able to wash, rinse, and dry by self, supervision due to impulsiveness. ) Bathing Location: L Arm, R Arm, L Upper Leg, R Upper Leg, L Lower Leg (including foot), R Lower Leg (including foot), Chest, Abdomen, Buttocks, Perineal Area Shower/Bathe Self (QC): 4 Upper Extremity Dressin (Pt used FWW to obtain clothing from closet. Pt doffed shirt by self sitting on shower bench. Pt donned shirt by self sitting on chair in room by self, supervision. ) Upper Body Dressing (QC): 4 Lower Extremity Dressin (Pt obtained clothing from closet using FWW. Pt doffed underwear and pants sitting on shower bench. Pt donned underwear, pants, socks and shoes sitting on chair in room, supervision. ) Lower Body Dressing (QC): 4 On/Off Footwear (QC): 4 Toiletin (Pt able to manage clothing properly before and after voiding. Pt able to cleanse self, supervision. ) Toileting Hygiene (QC): 4 Toilet/Commode Transfer: 5 (Pt requires FWW and grab bar, supervision due to impulsivness. ) Toilet Transfer (QC): 4 Shower: 5 (Pt requires FWW, grab bar and shower bench, supervision. ) Assessment/Plan Assessment and Plan Assess & Plan/Chief Complaint Plan: Continued meds from 4th floor Monitor BP and HR for RVR Strengthen and work on stairs in order to go home with son Cancer treatment per Dr Mejía IRF protocol Cardiology consultation is appreciated Monitor hgb and sodium level Fluid restriction for now at 1500cc/day and sodium level is 130 last check Somatic complaints are continued Very debilitated may need NH Transfused 1 unit of blood and noted + hemoccult stools so holding Eliquis and she will speak to her Oncologist later regarding the need for endoscopy but he has recommended to obtain consult so will do that for outpatient scheduling (1) Debility (2) Atrial fibrillation with RVR (3) Congestive heart failure Status: Acute (4) Hypokalemia (5) Anemia of chronic disease (6) Weakness (7) Non-small cell carcinoma of lung (8) Diastolic dysfunction Status: Acute (9) Afib (10) Transfusion of blood during current hospitalization (11) Dark stools (12) Dementia (13) Somatic complaints, multiple (14) Occult blood in stools MARIA GUADALUPE VELASQUEZ DO Jul 30, 2019 09:25
[2019-07-30] MEDS: meTOprolol TARTRATE 50 MG (LOPRESSOR) TAB PO SCH ×2 (09:38→21:00)
[2019-07-30] MEDS: FUROSEMIDE 20 MG (LASIX) TAB PO SCH (09:38)
[2019-07-30] MEDS: FOLIC ACID 1 MG TAB PO SCH (09:39)
[2019-07-30] MEDS: DILTIAZEM 180 MG (CARDIZEM CD) CAP PO SCH ×2 (09:39→21:00)
[2019-07-30] MEDS: PANTOPRAZOLE 40 MG (PROTONIX) TAB PO SCH (09:39)
[2019-07-30] MEDS: SENNA W/DOCUSATE (SENOKOT S) TABLET PO SCH ×2 (09:41→21:04)
[2019-07-30] MEDS: MAGNESIUM OXIDE (MAG-OX)400 MG TAB PO SCH ×2 (09:43→17:13)
--- NOTE | 2019-07-30 10:00 | NUR ---
DR. OLIVO HERE TO SEE PATIENT.
--- NOTE | 2019-07-30 10:05 | Progress Note - Cardiology ---
Cardiology SOAP Progress Note Subjective: No cp or palp or syncope No shortness of breath at rest Gen malaise and weakness Objective: I&O/Vital Signs 07/30/19 07/30/19 07/30/19 06:00 07:23 09:00 Temp 98.1 Pulse 92 Resp 18 B/P (MAP) 132/69 (90) Pulse Ox 97 97 O2 Delivery Room Air Room Air Room Air 07/30/19 00:00 Intake Total 490 ml Balance 490 ml Weight (Pounds): 121 Weight (Ounces): 4.0 Weight (Calculated Kilograms): 54.178285 Constitutional: AAO x 3, well-developed, well-nourished Respiratory: No accessory muscle use, No respiratory distress; chest expansion is symmetric, chest is bilaterally symmetric, lungs clear to auscultation Cardiovascular: irregularly irregular; No JVD; S1 and S2 Gastrointestional: No tender; soft, round, audible bowel sounds Extremities: no lower extremity edema bilateral Neurologic/Psychiatric: grossly intact, power is 5/5 both on sides Skin: No rash on exposed areas, No ulcerations on exposed areas Results/Procedures: Labs Laboratory Tests 07/29/19 04:55 A/P: Assessment: Anemia of undetermined etiology - GI bleeding suspected - managed by Dr Lee OAC with Eliquis - currently being withheld d/t worsening of anemia and melena 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 A-fib with RVR at time of admission - currently controlled Thryroid goiter: Thyroid u/s of 04/21/17: Multiple bilateral thyroid nodules predominately solid and showed varying degrees of elements of intralesional cystic degeneration. Their multiplicity and appearance is most suggestive of multiple adenomas and goiterous disease. The dominant mass in the lower pole of the right lobe shows some lobulation of its fairly well-defined borders as well as some coarse intralesional calcifications Coronary artery disease, moderate in the left coronary system and moderate to moderately severe in the right coronary system on cardiac catheterization of 08/10/2013. MPI of 04/23/17 did not show any significant ischemia and LVEF was normal. Last echo of 12/08/18: LVEF 55-60%, PASP 30 mmHg mmHg, mild MR H/o diastolic congestive heart failure which currently appears compensated. Hypertension with left ventricular hypertrophy Hypertension, labile. History of R lung wedge resection for non-small cell carcinoma in March [address] Mccord at [facility]. The patient is following with Dr Mejía of the Oncology services at [facility] History of hyperlipidemia being treated with statin therapy. Left bundle branch block. 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 This issue is being managed by Dr Lee * Monitor lab closely JIM OLIVO MD FACP FAC CCDS Jul 30, 2019 10:05
--- NOTE | 2019-07-30 12:14 | Physical Therapy Daily Note ---
PT Daily Note-Current Subjective Pt sitting in recliner upon arrival. Pt agrees PT. 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 Mental Status Patient Orientation: Person, Confused, Place, Time Transfers Therapy Code Descriptions/Definitions Functional [place] Measure: 0=Not Assessed/NA 4=Minimal Assistance 1=Total Assistance 5=Supervision or Setup 2=Maximal Assistance 6=Modified [place] 3=Moderate Assistance 7=Complete [place] Therapy Quality Codes: 6 Independent with activity with or without an assistive device 5 Patient requires set up or clean up by helper. Patient completes activity by themselves 4 Supervision or touching assist (CGA). [place] provide cues , steadying assist 3 The helper provides less than half the effort to complete the activity 2 The helper provides more than half the effort to complete the activity 1 Dependent. The helper does all the effort to complete an activity 7 Patient refused to complete or attempt activity 9 The patient did not perform the activity before the current illness or injury 88 Not attempted due to Medical conditions or safety concerns Transfers (B, C, W/C) (FIM): 6 Scootin Rollin Roll Left to Right (QC): 6 Supine to/from Sit: 6 Sit to/from Stand: 6 Sit to Lying (QC): 6 Sit to Stand (QC): 6 Chair/Ayg-rw-Vexsy Xfer(QC): 6 Bed to/from Chair: 6 Car Transfer (QC): 6 Pt is Mod I with safety concerns. Pt is not always socially aware. Weight Bearing Right Lower Extremity: Right Full Weight Bearing Left Lower Extremity: Left Full Weight Bearing Gait Training Does the Patient Walk?: Yes Gait (FIM): 5 Distance (FIM): 3=150 ft Distance: 150' Walk 10 feet (QC): 5 Walk 50 ft with 2 Turns(QC): 5 Walk 150 ft (QC): 5 Walking 10ft/uneven surface-QC: 5 Gait Level of Assist: 5 Gait Persons Needed: 1 Gait Assistive Device: FWW Pt has tendency to walk with FWW out in front of her instead of w/in the FWW. Pt's son ask about 4WW for ambulation but EMPLOYEE COMMUNICATIONS MANAGER tried to discourage for safety of previously stated. Wheelchair Training Does the Pt Use a Wheelchair?: No Stair Training Stair Training: Handrails/: 2 handrails Stairs (FIM): 2 #of Steps: 4 1 Step (curb) (QC): 4 4 Steps (QC): 4 12 Steps (QC): 88 Stairs: Pattern: Step to Level of Assist: 4 Pt has difficulty following directions for safety and quickly fatigues. Balance Picking up an Object (QC): 88 Special Test Comments Pt gets dizzy at bending over, this is not attempted. Exercises NuStep Minutes: 15 NuStep Workload: 4 Treatments Pt transfers from recliner to standing then ambulates in hallway. Pt uses NuStep for 15m at WL 4. Pt returns to room to use restroom and rest in recliner. Pt has all needs met, call light in hand. Assessment Current Status: Good Progress Pt needs VC for safety, see above. PT Short Term Goals Short Term Goals Time Frame: Jul 30, 2019 Transfers (B,C,W/C) (FIM): 6 Gait (FIM): 5 PT Longterm Goals Longterm Goals PT Handle [place] Goals Time Frame: Aug 06, 2019 Transfers (B,C,W/C) (FIM): 7 Sit to Lying (QC): 6 Lying-Sitting on Side/Bed(QC): 6 Sit to Stand (QC): 6 Rollin Roll Left to Right (QC): 6 Chair/Mou-jd-Rmvqh Xfer(QC): 6 Car Transfer (QC): 6 Does the Patient Walk: Yes Gait (FIM): 6 Gait distance (FIM): 3=150 ft Walk 10 feet (QC): 6 Walk 10ft-Uneven Surface(QC): 6 Walk 50ft with 2 Turns (QC): 6 Walk 150 ft (QC): 6 Gait Assistive Device: FWW (or least restrictive device) Stairs (FIM): 5 # of Steps: 4 1 Step (curb) (QC): 6 4 Steps (QC): 6 12 Steps (QC): 6 Picking up an Object (QC): 88 PT Plan Problem List Problem List: Activity Tolerance, Safety, Gait Treatment/Plan Treatment Plan: Continue Plan of Care Treatment Plan: Bed Mobility, Education, Functional Activity Phil, Functional Strength, Group Therapy, Gait, Safety, Therapeutic Exercise, Transfers Treatment Duration: Aug 06, 2019 Frequency: At least 5 of 7 days/Wk (IRF) Estimated Hrs Per Day: 1.5 hours per day Patient and/or Family Agrees t: Yes Safety Risks/Education Patient Education: Gait Training, Transfer Techniques, Correct Positioning, Safety Issues Teaching Recipient: Patient Teaching Methods: Discussion Response to Teaching: Verbalize Understanding, Reinforcement Needed Time/GCodes Time In: 1045 Time Out: 1130 Total Billed Treatment Time: 45 Total Billed Treatment 1, EX (15m), GT (20m) & FA (10m) JOSSELYN BATES EMPLOYEE COMMUNICATIONS MANAGER Jul 30, 2019 12:14
--- NOTE | 2019-07-30 12:58 | Speech Therapy Daily Note ---
Speech Daily Progress Note Subjective Date Seen by Provider: Jul 30, 2019 Time Seen by Provider: 00:30 The patient was resting in her chair when I entered her room. She stated she was tired from going to [place] yesterday. Objective The patient completed problem solving tasks related to her daily routine upon her return home at 85% with minimal verbal cues. Assessment Assessment Current Status: Good Progress Treatment Plan Discontinue ST, Goals Met Communication Comprehension: 7 Expression: 6 Social Cognition Social Interaction: 7 Problem Solvin Memory: 6 Speech Short Term Goals Short Term Goals Short Term Goals 1) The patient will complete memory tasks related to her daily needs at 90% or greater. 2) The patient will complete problem solving tasks related to her daily needs at 90% or greater. 3) The patient will complete safety awareness tasks related to her daily needs at 90% or greater. Speech Childbirth Educator Goals Childbirth Educator Goals The patient will improve cognitive function so that she may return safely. Speech-Plan Patient/Family Goals Patient/Family Goals: The patient is returning home today with her son's support. Treatment Plan Speech Therapy Treatment Plan: Discontinue ST, Goals Met The patient is being discharged today. Treatment Duration: Jul 30, 2019 Frequency: 5 times per week Estimated Hrs Per Day: .5 hour per day Rehab Potential: Good Barriers to Learning: Patient has mild cognitive deficits Pt/Family Agrees to Plan: Yes Safety Risks/Education Teaching Recipient: Patient Teaching Methods: Discussion Response to Teaching: Verbalize Understanding Education Topics Provided: Continued safety upon her return home. Time Speech Therapy Time In: 10:00 Speech Therapy Time Out: 10:30 Total Billed Time: 30 Billed Treatment Time 1, JEREMÍAS Franz Jul 30, 2019 12:58
--- NOTE | 2019-07-30 13:02 | Therapy Team Discharge Summary ---
Therapy Discharge Summary Discharge Recommendations Date of Discharge Occupational Therapy Decreased Activ Tolerance Speech-Language Pathology The patient was admitted to the ARU due to debility from chemo treatments. The patient was initially given the SLUMS with scores indicating a MNCD range of function. The patient received skilled ST for improving cognitive function. The patient is discharging home with her son today. She is also discharging from ST with all goals met. PT Vending Machine Attendant Goals Vending Machine Attendant Goals PT Vending Machine Attendant Goals Time Frame: Aug 06, 2019 Transfers (B,C,W/C) (FIM): 7 Roll Left to Right (QC): 6 Sit to Lying (QC): 6 Lying-Sitting on Side/Bed(QC): 6 Sit to Stand (QC): 6 Chair/Gzn-of-Cguct Xfer(QC): 6 Car Transfer (QC): 6 Does the Patient Walk: Yes Gait (FIM): 6 Gait distance (FIM): 3=150 ft Walk 10 feet (QC): 6 Walk 10ft-Uneven Surface(QC): 6 Walk 50ft with 2 Turns (QC): 6 Walk 150 ft (QC): 6 Gait Assistive Device: FWW (or least restrictive device) Stairs (FIM): 5 # of Steps: 4 1 Step (curb) (QC): 6 4 Steps (QC): 6 12 Steps (QC): 6 Picking up an Object (QC): 88 OT Vending Machine Attendant Goals Custodial Goals Time Frame: Aug 06, 2019 Eating (FIM): 6 (met-07/30/2019) Eating (QC): 6 (met07/30/2019) Oral Hygiene (QC): 6 (07/30/2019) Grooming(FIM): 6 (07/30/2019) Bathing(FIM): 5 (07/30/2019) Shower/Bathe Self (QC): 4 (07/30/2019) Upper Body Dressing(FIM): 6 (met07/30/2019) Upper Body Dressing (QC): 6 (met07/30/2019) Lower Body Dressing(FIM): 6 (met07/30/2019) Lower Body Dressing (QC): 6 (07/30/2019) On/Off Footwear (QC): 6 (met07/30/2019) Toileting(FIM): 6 (met07/30/2019) Toileting Hygiene (QC): 6 ([facility]-07/30/2019) Transfers (B,C,W/C) (FIM): 6 ([facility]-07/30/2019) Toilet/Commode Transfer(FIM): 6 ([facility]-07/30/2019) Toilet/Commode Transfer (QC): 6 ([facility]-07/30/2019) Additional Goals: 1-Demonstrate ADL Tasks, 2-Verbalize Understanding, 3- ImproveStrength/Phil 1=Demonstrate adherence to instructed precautions during ADL tasks. 2=Patient will verbalize/demonstrate understanding of assistive devices/modifications for ADL. 3=Patient will improve strength/tolerance for activity to enable patient to perform ADL's. Speech Vending Machine Attendant Goals Custodial Goals The patient will improve cognitive function so that she may return safely. Met JEREMÍAS CHERRY Jul 30, 2019 13:02
--- NOTE | 2019-07-30 13:56 | Progress Note ---
[facility] 07/30/19 1356: Subjective Date Seen by a Provider: Jul 30, 2019 Time Seen by a Provider: 07:40 Subjective/Events-last exam Mrs. Munson is a 78 yo WF that is being managed in the rehab unit. She was treated with 2 units of packed red cells, resulting in an HgB of 8.1 and HCT of 26. This was an increase from 07/27 when her HgB dropped to 7. Her ASA and Abixaban have been on hold for this reason. Her platelet count is normal. Her WBC is elevated at 13.3. Her vitals were all stable and stating at 97 on room air. She is stating that she has the constant urge to void, with little to no urine being produced. She has been treated for a UTI previously and is worried that it may be coming back. She does state groin pain as well. She has not had a bowel movement since 07/27, which she stated was diarrhea-like, black and sticky. Since then she has had no drive to eat much. She states that she may eat a hot dog at most, but doesnt feel the desire to eat more. She is drinking constant water. She reporting being tired from her PT/OT session yesterday. This happened prior to her leaving for [place] to go to a chemo appointment which was cancelled. She reports SOB (likely due to a lobectomy) and positional syncope, stating it occurs upon standing up or laying down (possibly from anemia). She also states that she has N/V. She does deny F/C. She reports her Sciatica is affecting her ability to walk. She is frustrated at how reliant she has become to using the walker. Objective Exam Last Set of Vital Signs Vital Signs Date Time Temp Pulse Resp B/P (MAP) Pulse Ox O2 Delivery O2 Flow Rate FiO2 07/30/19 09:00 Room Air 07/30/19 07:23 97 07/30/19 06:00 98.1 92 18 132/69 (90) Capillary Refill : I&O Intake and Output 07/30/19 00:00 Intake Total 740 ml Balance 740 ml Intake Oral 730 ml IV Total 10 ml # Voids 5 General: Oriented X3, No Acute Distress Lungs: Clear to Auscultation, Normal Air Movement Heart: Regular Rate Abdomen: No Tenderness Assessment/Plan Assessment/Plan Assess & Plan/Chief Complaint Assessment: 1. Unable to maintain balance to ambulate effectively without walker. 2. Decrease strength in LE to effectively walk. 3. SOB upon active participation in PT/OT 4. Sciatica affecting L LE movement while walking 5. Somatic issues affecting grion and bladder, main complaints Plan: 1. Continue to work on walking and supporting self with walker to be more comfortable with it. 2. Stretching and possible PT for sciatica. NSAIDs if needed. 3. Continue breathing treatment. Possibly increase with PT/OT. 4. NSAIDs and reassurance for somatic issues. Clinical Quality Measures DVT/VTE Risk/Contraindication: Risk Factor Score Per Nursin RFS Level Per Nursing on Admit: 4+=Very High ANITA VELASQUEZ DO 07/30/192054: Subjective Review of Systems General: Fatigue Supervisory-Addendum Brief Verification & Attestation Participated in pt care: history, MDM, physical Personally performed: exam, history, MDM, supervision of care Care discussed with: Medical Student Procedures: n/a Results interpretation: Verified all documentation Verification and Attestation of Medical Student E/M Service A medical student performed and documented this service in my presence. I reviewed and verified all information documented by the medical student and made modifications to such information, when appropriate. I personally performed the physical exam and medical decision making. Anita Velasquez, Jul 30, 2019,20:54 [facility] R[facility] Jul 30, 2019 13:56 ANITA VELASQUEZ DO Jul 30, 2019 20:55
--- NOTE | 2019-07-30 15:54 | Physical Therapy Daily Note ---
PT Daily Note-Current Subjective Pt sitting in recliner with son present upon arrival. Pt agrees to PT. Son asks about use of 4WW, SOIL SURVEYOR discouraged. Pt also asked about use of bed/chair alarms. SOIL SURVEYOR advised did not have to be used if others are present but if alone, alarms needed used. Pain Numeric Pain Scale: 5-Moderate Pain Location: Left Location Body Site: Hip Pain Description: Ache, Tightness Mental Status Patient Orientation: Person, Confused, Place Transfers Therapy Code Descriptions/Definitions Functional [place] Measure: 0=Not Assessed/NA 4=Minimal Assistance 1=Total Assistance 5=Supervision or Setup 2=Maximal Assistance 6=Modified [place] 3=Moderate Assistance 7=Complete [place] Therapy Quality Codes: 6 Independent with activity with or without an assistive device 5 Patient requires set up or clean up by helper. Patient completes activity by themselves 4 Supervision or touching assist (CGA). [place] provide cues , steadying assist 3 The helper provides less than half the effort to complete the activity 2 The helper provides more than half the effort to complete the activity 1 Dependent. The helper does all the effort to complete an activity 7 Patient refused to complete or attempt activity 9 The patient did not perform the activity before the current illness or inj ury 88 Not attempted due to Medical conditions or safety concerns Transfers (B, C, W/C) (FIM): 6 Scootin Rollin Roll Left to Right (QC): 6 Supine to/from Sit: 6 Sit to/from Stand: 6 Sit to Lying (QC): 6 Sit to Stand (QC): 6 Chair/Hhm-xv-Ytora Xfer(QC): 6 Bed to/from Chair: 6 Car Transfer (QC): 6 Weight Bearing Right Lower Extremity: Right Full Weight Bearing Left Lower Extremity: Left Full Weight Bearing Gait Training Does the Patient Walk?: Yes Gait (FIM): 5 Distance (FIM): 3=150 ft Distance: 150' Walk 10 feet (QC): 5 Walk 50 ft with 2 Turns(QC): 5 Walk 150 ft (QC): 5 Walking 10ft/uneven surface-QC: 5 Gait Level of Assist: 5 Gait Persons Needed: 1 Gait Assistive Device: FWW Pt needs VC for safety, keeping FWW close to pt. Wheelchair Training Does the Pt Use a Wheelchair?: No Treatments Pt completes PT tx with transfers from sit to stand, bed mobility, car transfer and ambulation. Pt returns to room to rest at end of tx. Pt has all needs met, call light in hand. Assessment Current Status: Good Progress Social awareness is still difficult for pt, needs VC. PT Short Term Goals Short Term Goals Time Frame: Jul 30, 2019 Transfers (B,C,W/C) (FIM): 6 Gait (FIM): 5 PT Medical Economics Consultant Goals Medical Economics Consultant Goals PT Fpc Goals Time Frame: Aug 06, 2019 Transfers (B,C,W/C) (FIM): 7 Sit to Lying (QC): 6 Lying-Sitting on Side/Bed(QC): 6 Sit to Stand (QC): 6 Rollin Roll Left to Right (QC): 6 Chair/Uzk-mh-Xsiaj Xfer(QC): 6 Car Transfer (QC): 6 Does the Patient Walk: Yes Gait (FIM): 6 Gait distance (FIM): 3=150 ft Walk 10 feet (QC): 6 Walk 10ft-Uneven Surface(QC): 6 Walk 50ft with 2 Turns (QC): 6 Walk 150 ft (QC): 6 Gait Assistive Device: FWW (or least restrictive device) Stairs (FIM): 5 # of Steps: 4 1 Step (curb) (QC): 6 4 Steps (QC): 6 12 Steps (QC): 6 Picking up an Object (QC): 88 PT Plan Problem List Problem List: Activity Tolerance, Functional Strength, Safety Treatment/Plan Treatment Plan: Continue Plan of Care Treatment Plan: Bed Mobility, Education, Functional Activity Phil, Functional Strength, Group Therapy, Gait, Safety, Therapeutic Exercise, Transfers Treatment Duration: Aug 06, 2019 Frequency: At least 5 of 7 days/Wk (IRF) Estimated Hrs Per Day: 1.5 hours per day Patient and/or Family Agrees t: Yes Safety Risks/Education Patient Education: Gait Training, Transfer Techniques, Correct Positioning, Safety Issues Teaching Recipient: Patient Teaching Methods: Discussion Response to Teaching: Verbalize Understanding Time/GCodes Time In: 1300 Time Out: 1330 Total Billed Treatment Time: 30 Total Billed Treatment 1, FA x2 (30m) JOSSELYN BATES SOIL SURVEYOR Jul 30, 2019 15:54
--- NOTE | 2019-07-30 16:13 | Consultation - Surgery ---
History of Present Illness History of Present Illness Patient Consulted On(deshawn/time) 07/30/19 16:07 Time Seen by Provider: 13:01 History of Present Illness Surgery asked to consult regarding +Hemoccult test and anemia. HPI per IM: This is a 78yoWF clinic Pt of Dr. Raciel Dias who presents to the inpatient rehab after presenting to the hospital with severe weakness requiring a blood transfusion and monitoring atrial fibrillation. She is currently being treated for lung cancer at [facility] from Dr. Mejía, of which she quit smoking in the . Apparently her prior level of functioning was fully independent of her ADLs and ambulation with no assistive devices. She will be moving in to her son's house and he has multiple steps which will be worked on aggressively by PT in order for her to regain function in order for her to return to her sons house to live with him at discharge. At this current time Pt feels well, she is br eathing well, she is just weak. Her bowels are moving. Pt states she saw black stools, no blood and diarrhea that "floats". She thinks it started two weeks ago. Complains of LLQ pain, rated as 8 out of 10 with no radiation of pain; can't describe the pain "it just hurts". Nothing makes pain better or worse. Allergies and Home Medications Allergies Coded Allergies: Penicillins (Unverified Allergy, Mild, RASH, 09/24/10) RUPAL Inhibitors (Verified Allergy, Unknown, HIVES, 12/11/16) atorvastatin (Verified Allergy, Unknown, HIVES, 12/11/16) iodine (Verified Allergy, Unknown, HIVES, 12/11/16) Home Medications Albuterol Sulfate 18 Gm Hfa.aer.ad, 2 PUFF IH Q4H PRN for SHORTNESS OF BREATH, (Reported) Apixaban 2.5 Mg Tablet, 2.5 MG PO BID, (Reported) Aspirin 81 Mg Tablet.dr, 81 MG PO DAILY, (Reported) Budesonide/Formoterol Fumarate 10.2 Gm Hfa.aer.ad, 2 PUFF INH BID PRN for SHORTNESS OF BREATH, (Reported) LAST FILLED 04-07-2019 #1 INHALER Diltiazem HCl 180 Mg Cap.er.24h, 180 MG PO BID, (Reported) Folic Acid 1 Mg Tablet, 1 MG PO DAILY, (Reported) Furosemide 20 Mg Tablet, 20 MG PO DAILY, (Reported) Furosemide 20 Mg Tablet, 20 MG PO HS PRN for SWELLING , (Reported) Hydrocodone/Acetaminophen 1 Each Tablet, 1 TAB PO Q4H PRN for PAIN-MODERATE, (Reported) Metoprolol Tartrate 100 Mg Tablet, 100 MG PO BID, (Reported) Prochlorperazine Maleate 10 Mg Tablet, 10 MG PO Q6H PRN for NAUSEA/VOMITING-4TH LINE, (Reported) Patient Home Medication List Home Medication List Reviewed: Yes Past Uwdmrbx-Lsjspz-Bwicvz Hx Patient Social History Alcohol Use: Denies Use Recreational Drug Use: No Smoking Status: Former Smoker Former Smoker, Quit: Jul 23, 1999 Type Used: Cigarettes 2nd Hand Smoke Exposure: No (quit 20 years ago) Recent Foreign Travel: No Contact w/Someone Who Travel: No Recent Infectious Disease Expo: No Recent Hopitalizations: Yes (pacemaker placement) Physical Abuse Screen: No Sexual Abuse: No Immunizations Up To Date Tetanus Booster (TDap): Unknown PED Vaccines UTD: Yes Date of Pneumonia Vaccine: Aug 17, 2013 Date of Influenza Vaccine: Sep 07, 2013 Seasonal Allergies Seasonal Allergies: No Surgeries History of Surgeries: Yes (CARDIAC CATH; RIGHT LUNG RESECTION/TUMOR REMOVAL, placemaker) Surgeries: Cardiac, Gallbladder, Hysterectomy, Lobectomy, Tonsillectomy Respiratory History of Respiratory Disorde: Yes (+ 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 Genitourinary History of Genitourinary Disor: Yes Genitourinary Disorders: Bladder Infection Gastrointestinal History of Gastrointestinal Di: Yes (S/P SOCORRO) Gastrointestinal Disorders: Gall Bladder Disease Musculoskeletal History of Musculoskeletal Dis: Yes Musculoskeletal Disorders: Arthritis, Chronic Back Pain Endocrine History of Endocrine Disorders: Yes Endocrine Disorders: Hyperthyroidism HEENT HEENT Disorders: Cataract Cancer History of Cancer: Yes (LBBB, LVH, chf, diastolic heart failure) Cancer: Lung, Breast Psychosocial History of Psychiatric Problem: Yes Behavioral Health Disorders: Anxiety, Depression Integumentary History of Skin or Integumenta: No Blood Transfusions History of Blood Disorders: No Adverse Reaction to a Blood Tr: No Family Medical History Significant Family History: Cancer (pt denies), Other Conditions/Hx (Mother had dementia, Pt did not know Father) Family Medial History: Patient reports no known family medical history. Review of Systems-General Constitutional: No diaphoresis, No dizziness; weakness; No weight loss EENTM: No double vision, No mouth swelling, No epistaxis Respiratory: dyspnea on exertion, hemoptysis, short of breath Cardiovascular: No chest pain; palpitations Gastrointestinal: abdominal pain, diarrhea; No hematemesis; melena, nausea; No vomiting Genitourinary: No dysuria; frequency; No hematuria; other (urgency, but when she tries to urinate she can't) Musculoskeletal: back pain (lower - chronic), joint pain, joint swelling, muscle stiffness, muscle cramps Skin: No change in color, No change in hair/nails, No lesions Psychiatric/Neurological: Denies Anxiety, Denies Depressed; Numbness, Paresthesia, Pre-Existing Deficit, Tingling Other no abnormal bleeding or bruising Physical Exam-General Problems Physical Exam Vital Signs Vital Signs - First Documented 07/24/19 06:43 Temp 98.2 Pulse 74 Resp 16 B/P (MAP) 128/71 (90) Pulse Ox 95 O2 Delivery Room Air Capillary Refill : General Appearance: no apparent distress, thin Eyes: Bilateral Eye PERRL, Bilateral Eye EOMI HEENT: pharynx normal; No scleral icterus (R), No scleral icterus (L), No pale conjunctivae (R), No pale conjunctivae (L) Neck: non-tender, supple Respiratory: chest non-tender, lungs clear, normal breath sounds, no respiratory distress, no accessory muscle use Cardiovascular: no murmur, irregularly irregular Gastrointestinal: normal bowel sounds, non tender, soft, no organomegaly, no pulsatile mass Rectal: deferred Extremities: no calf tenderness, pedal edema (1+ bilaterally) Neurologic/Psychiatric: 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 Plan to begin prep tomorrow and do procedures on Saturday. The endoscopy may also help with determining reason for LLQ pain and nausea. Would restrict free water because of her hyponatremia and change fluids secondary to her Hyperkalemia. Clinical Quality Measures DVT/VTE Risk/Contraindication: Risk Factor Score Per Nursin RFS Level Per Nursing on Admit: 4+=Very High CAMERON VARELA DO Jul 30, 2019 16:13
[2019-07-30 16:14] VITALS: BP 126/77
--- NOTE | 2019-07-30 19:13 | NUR ---
bedside report received from JANET HUERTA, assume care of pt
[2019-07-30 20:55] VITALS: BP 112/65
--- NOTE | 2019-07-30 21:00 | NUR ---
c/o pain level 8/10 on numeric scale, Lortab 5 1 tab po given. pt refuses Senokot
--- NOTE | 2019-07-30 21:05 | NUR ---
assessments & interventions completed, see assessments & interventions, remains up in the chair
--- NOTE | 2019-07-30 21:40 | NUR ---
rates pain at 4/10 on numeric scale
[2019-07-31] MEDS: ACETAMINOPHEN 500 MG TAB (TYLENOL) PO PRN (00:19)
--- NOTE | 2019-07-31 00:19 | NUR ---
c/o pain level 9/10 on numeric scale, Tylenol 500mg po given
[2019-07-31] MEDS: HYDROcodone/APAP 5 MG/325 MG (LORTAB) TAB PO PRN (00:42)
--- NOTE | 2019-07-31 00:42 | NUR ---
rates pain level 6/10 on numeric scale, Lortab 5 1 tab po given
[2019-07-31 05:30] VITALS: BP 118/66
[2019-07-31 05:52] LABS: BASOPHILS % (AUTO) 0 % (0-10); EOSINOPHILS # (AUTO) 0.7 10^3/uL (0.0-0.3); EOSINOPHILS % (AUTO) 5 % (0-10); HEMATOCRIT 24 % (35-52); HEMOGLOBIN 7.4 G/DL (11.5-16.0); LYMPHOCYTES # (AUTO) 0.8 X 10^3 (1.0-4.0); LYMPHOCYTES % (AUTO) 6 % (12-44); MEAN CORPUSCULAR HEMOGLOBIN 28 PG (25-34); MEAN CORPUSCULAR HGB CONC 31 G/DL (32-36); MEAN CORPUSCULAR VOLUME 88 FL (80-99); MONOCYTES # (AUTO) 1.3 X 10^3 (0.0-1.0); MONOCYTES % (AUTO) 10 % (0-12); NEUTROPHILS # (AUTO) 10.6 X 10^3 (1.8-7.8); NEUTROPHILS % (AUTO) 79 % (42-75); PLATELET COUNT 333 10^3/uL (130-400); WHITE BLOOD COUNT 13.5 10^3/uL (4.3-11.0)
[2019-07-31] MEDS: CATHETER FLUSH 10 ML SYR IV SCH (06:00)
[2019-07-31 06:11] LABS: BUN/CREATININE RATIO 26; CALCIUM 8.1 MG/DL (8.5-10.1); CARBON DIOXIDE 23 MMOL/L (21-32); CHLORIDE 101 MMOL/L (98-107); CREATININE SERUM 0.69 MG/DL (0.60-1.30); GFR ESTIMATED > 60; GLUCOSE 98 MG/DL (70-105); MAGNESIUM 1.7 MG/DL (1.6-2.4); POTASSIUM 4.5 MMOL/L (3.6-5.0); SODIUM 132 MMOL/L (135-145)
--- NOTE | 2019-07-31 07:14 | NUR ---
bedside report given to ELYSSA HUERTA
--- NOTE | 2019-07-31 07:46 | Progress Note ---
[facility]A RAYO [facility] 07/31/19 0746: Subjective Date Seen by a Provider: Jul 31, 2019 Time Seen by a Provider: 07:00 Subjective/Events-last exam Brandi is tachycardic with normal vital sign. She is voiding well but still complaining urge to frequently go. She still complains of diarrhea that is painful, black and sticky. Her aspirin and apixaban are still being held. ROS: +: SOB/N/Syncope (positional)/ Sciatica -: Chest pain/F/C Appetite is ok, eats when she feels hungry but doesnt force herself to eat. She is thirsty, stating it is hot and dry She slept in spurts. She is pretty tired and not well rested She says that PT/OT wears her out and she is still tired from it. Objective Exam Last Set of Vital Signs Vital Signs Date Time Temp Pulse Resp B/P (MAP) Pulse Ox O2 Delivery O2 Flow Rate FiO2 07/31/19 05:30 97.3 110 20 118/66 (83) 96 Room Air Capillary Refill : I&O Intake and Output 07/31/19 00:00 Intake Total 965 ml Balance 965 ml Intake Oral 965 ml # Voids 6 General: Oriented X3, Cooperative, No Acute Distress Lungs: Clear to Auscultation, Normal Air Movement Heart: Regular Rate Abdomen: No Tenderness Results Lab Laboratory Tests 07/31/19 05:30: White Blood Count 13.5H, Red Blood Count 2.68L, Hemoglobin 7.4L, Hematocrit 24L, Mean Corpuscular Volume 88, Mean Corpuscular Hemoglobin 28, Mean Corpuscular Hemoglobin Concent 31L, Red Cell Distribution Width 19.0H, Platelet Count 333, Mean Platelet Volume 9.0, Neutrophils (%) (Auto) 79H, Lymphocytes (%) (Auto) 6L, Monocytes (%) (Auto) 10, Eosinophils (%) (Auto) 5, Basophils (%) (Auto) 0, Neutrophils # (Auto) 10.6H, Lymphocytes # (Auto) 0.8L, Monocytes # (Auto) 1.3H, Eosinophils # (Auto) 0.7H, Basophils # (Auto) 0.0, Sodium Level 132L, Potassium Level 4.5, Chloride Level 101, Carbon Dioxide Level 23, Anion Gap 8, Blood Urea Nitrogen 18, Creatinine 0.69, Estimat Glomerular Filtration Rate > 60, BUN/Creatinine Ratio 26, Glucose Level 98, Calcium Level 8.1L, Magnesium Level 1.7 Assessment/Plan Assessment/Plan Assess & Plan/Chief Complaint Assessment: 1. Unable to maintain balance to ambulate effectively without walker. 2. Decrease strength in LE to effectively walk. 3. SOB upon active participation in PT/OT 4. Sciatica affecting L LE movement while walking 5. Somatic issues affecting grion and bladder, main complaints Plan: 1. Continue to work on walking and supporting self with walker to be more comfortable with it. 2. Stretching and possible PT for sciatica. NSAIDs if needed. 3. Continue breathing treatment. Possibly increase with PT/OT. 4. NSAIDs and reassurance for somatic issues. Clinical Quality Measures DVT/VTE Risk/Contraindication: Risk Factor Score Per Nursin RFS Level Per Nursing on Admit: 4+=Very High ANITA VELASQUEZ DO 08/01/19 0825: Supervisory-Addendum Brief Verification & Attestation Participated in pt care: history, MDM, physical Personally performed: exam, history, MDM, supervision of care Care discussed with: Medical Student Procedures: n/a Results interpretation: Verified all documentation Verification and Attestation of Medical Student E/M Service A medical student performed and documented this service in my presence. I reviewed and verified all information documented by the medical student and made modifications to such information, when appropriate. I personally performed the physical exam and medical decision making. Anita Velasquez Aug 01, 2019,08:24 [facility] Jul 31, 2019 07:46 ANITA VELASQUEZ DO Aug 01, 2019 08:25
[2019-07-31 08:00] VITALS: BP 115/69
[2019-07-31] MEDS: DILTIAZEM 180 MG (CARDIZEM CD) CAP PO SCH (08:35)
[2019-07-31] MEDS: FOLIC ACID 1 MG TAB PO SCH (08:35)
[2019-07-31] MEDS: MAGNESIUM OXIDE (MAG-OX)400 MG TAB PO SCH (08:35)
[2019-07-31] MEDS: PANTOPRAZOLE 40 MG (PROTONIX) TAB PO SCH (08:36)
[2019-07-31] MEDS: meTOprolol TARTRATE 50 MG (LOPRESSOR) TAB PO SCH (08:36)
[2019-07-31] MEDS: FUROSEMIDE 20 MG (LASIX) TAB PO SCH (08:36)
--- NOTE | 2019-07-31 08:36 | Progress Note - Cardiology ---
Cardiology SOAP Progress Note Subjective: No cp or palp or syncope Gen weakness present Objective: I&O/Vital Signs 07/30/19 07/30/19 07/31/19 20:55 21:05 05:30 Temp 97.3 Pulse 114 110 Resp 20 20 B/P (MAP) 112/65 (81) 118/66 (83) Pulse Ox 97 96 O2 Delivery Room Air Room Air Room Air 07/31/19 00:00 Intake Total 640 ml Balance 640 ml Weight (Pounds): 121 Weight (Ounces): 4.0 Weight (Calculated Kilograms): 54.851884 Constitutional: AAO x 3, well-developed, well-nourished Respiratory: No accessory muscle use, No respiratory distress; chest expansion is symmetric, chest is bilaterally symmetric, lungs clear to auscultation Cardiovascular: irregularly irregular; No JVD; S1 and S2 Gastrointestional: No tender; soft, round, audible bowel sounds Extremities: no lower extremity edema bilateral Neurologic/Psychiatric: grossly intact, power is 5/5 both on sides Skin: No rash on exposed areas, No ulcerations on exposed areas Results/Procedures: Labs Laboratory Tests 07/31/19 05:30: White Blood Count 13.5H, Red Blood Count 2.68L, Hemoglobin 7.4L, Hematocrit 24L, Mean Corpuscular Volume 88, Mean Corpuscular Hemoglobin 28, Mean Corpuscular Hemoglobin Concent 31L, Red Cell Distribution Width 19.0H, Platelet Count 333, Mean Platelet Volume 9.0, Neutrophils (%) (Auto) 79H, Lymphocytes (%) (Auto) 6L, Monocytes (%) (Auto) 10, Eosinophils (%) (Auto) 5, Basophils (%) (Auto) 0, Neutrophils # (Auto) 10.6H, Lymphocytes # (Auto) 0.8L, Monocytes # (Auto) 1.3H, Eosinophils # (Auto) 0.7H, Basophils # (Auto) 0.0, Sodium Level 132L, Potassium Level 4.5, Chloride Level 101, Carbon Dioxide Level 23, Anion Gap 8, Blood Urea Nitrogen 18, Creatinine 0.69, Estimat Glomerular Filtration Rate > 60, BUN/Creatinine Ratio 26, Glucose Level 98, Calcium Level 8.1L, Magnesium Level 1.7 A/P: Assessment: Anemia of undetermined etiology - GI bleeding suspected - managed by Dr Lee OAC with Eliquis - currently being withheld d/t worsening of anemia and melena 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 A-fib with RVR at time of admission - currently controlled Thryroid goiter: Thyroid u/s of 04/21/17: Multiple bilateral thyroid nodules predominately solid and showed varying degrees of elements of intralesional cystic degeneration. Their multiplicity and appearance is most suggestive of multiple adenomas and goiterous disease. The dominant mass in the lower pole of the right lobe shows some lobulation of its fairly well-defined borders as well as some coarse intralesional calcifications Coronary artery disease, moderate in the left coronary system and moderate to moderately severe in the right coronary system on cardiac catheterization of 08/10/2013. MPI of 04/23/17 did not show any significant ischemia and LVEF was normal. Last echo of 12/08/18: LVEF 55-60%, PASP 30 mmHg mmHg, mild MR H/o diastolic congestive heart failure which currently appears compensated. Hypertension with left ventricular hypertrophy Hypertension, labile. History of R lung wedge resection for non-small cell carcinoma in March [address] Mccord at [facility]. The patient is following with Dr Mejía of the Oncology services at [facility] History of hyperlipidemia being treated with statin therapy. Left bundle branch block. 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 This issue is being managed by Dr Lee * Monitor lab closely * I discussed her CV issues with her * Close outpt f/u is advised JIM OLIVO MD FACP FAC CCDS Jul 31, 2019 08:36
[2019-07-31] MEDS: SENNA W/DOCUSATE (SENOKOT S) TABLET PO SCH (08:37)
[2019-07-31] MEDS ORDERED: HYDR-3812 PO (08:59)
[2019-07-31] MEDS ORDERED: MAGN400T6 PO (08:59)
[2019-07-31] MEDS ORDERED: PANT40TA3 PO (08:59)
--- NOTE | 2019-07-31 09:03 | D/C HH Face to Face Order ---
D/C Face to Face Orders Reconcile Patient Problems Problems Reviewed?: Yes Instructions for Patient Via [facility], Patient Instructions/FollowUp: Dr Dias in [address] Mejía in 1 week EGD/Colon as scheduled Physician to follow Patient: Dr Raciel Dias Discharge Diet for Home: No Restrictions Patient Problems: Lung Cancer Weight loss Anemia AF Goals for Patient: Return to independent living Patient Data-Allergies,Ht & Wt Patient Allergies: Coded Allergies: Penicillins (Unverified Allergy, Mild, RASH, 09/24/10) RUPAL Inhibitors (Verified Allergy, Unknown, HIVES, 12/11/16) atorvastatin (Verified Allergy, Unknown, HIVES, 12/11/16) iodine (Verified Allergy, Unknown, HIVES, 12/11/16) Height (Feet): 5 Height (Inches): 3.00 Weight (Pounds): 121 Weight (Ounces): 4.0 Home Health Need/Face to Face Date of Face to Face: Jul 31, 2019 Clinical Findings: Generalized weakness and fatigue, Instability, Muscle weakness, Pain with ambulation, Unsteady gait I have seen Pt [id number]: Yes Discharged To: Home Diagnosis/Conditions: Lung Cancer Weight loss Anemia AF Patient is Homebound due to: Muscle weakness, Pain w/ambulation Homebound Status Due to the above stated illness, injury or surgical procedure (medical condition or diagnosis) and associated clinical findings, the patient is homebound because of his/her inability to leave home except with aid of a supportive device and/or person AND leaving the home requires a considerable and taxing effort or is medically contraindicated. Pt req the following assistanc: [facility] Nursing Orders Home Health Services Order: Nursing Services, Research Program Coordinator-Evaluate & Treat, Physical Therapy-Evaluate & Treat Certify Stmt I certify that this patient is under my care and that I, a nurse practitioner or a physician; a loan officer assistant working with me, had a face to face encounter that - meets the physician face to face encounter requirements with this patient as dated. MARIA GUADALUPE VELASQUEZ DO Jul 31, 2019 09:03
--- NOTE | 2019-07-31 09:05 | Discharge Summary ---
Diagnosis/Chief Complaint Date of Admission Jul 23, 2019 at 10:20 Date of Discharge Discharge Date: Jul 31, 2019 Discharge Diagnosis Plan: Continued meds from 4th floor Monitor BP and HR for RVR Strengthen and work on stairs in order to go home with son Cancer treatment per Dr Mejía IRF protocol Cardiology consultation is appreciated Monitor hgb and sodium level Fluid restriction for now at 1500cc/day and sodium level is 130 last check Somatic complaints are continued Very debilitated may need NH Transfused 1 unit of blood and noted + hemoccult stools so holding Eliquis and she will speak to her Oncologist later regarding the need for endoscopy but he has recommended to obtain consult so will do that for outpatient scheduling (1) Debility (2) Atrial fibrillation with RVR (3) Congestive heart failure Status: Acute (4) Hypokalemia (5) Anemia of chronic disease (6) Weakness (7) Non-small cell carcinoma of lung (8) Diastolic dysfunction Status: Acute (9) Afib (10) Transfusion of blood during current hospitalization (11) Dark stools (12) Dementia (13) Somatic complaints, multiple (14) Occult blood in stools Discharge Summary Discharge Physical Examination Allergies: Coded Allergies: Penicillins (Unverified Allergy, Mild, RASH, 09/24/10) RUPAL Inhibitors (Verified Allergy, Unknown, HIVES, 12/11/16) atorvastatin (Verified Allergy, Unknown, HIVES, 12/11/16) iodine (Verified Allergy, Unknown, HIVES, 12/11/16) Vitals & I&Os Vital Signs Date Time Temp Pulse Resp B/P (MAP) Pulse Ox O2 Delivery O2 Flow Rate FiO2 07/31/19 11:10 110 20 118/66 96 Room Air 07/31/19 05:30 97.3 General Appearance: Alert, Oriented X3, Cooperative, Other (frail, pale, weak) Respiratory: Clear to Auscultation Cardiovascular: Regular Rate Psych/Mental Status: Mental Status NL, Mood NL Hospital Course Was the Problem List Reviewed?: Yes Hospital Course: Pt had a standard hospital course after she was admitted for debility and chemotherapy induced myopathy after she was admitted for severe anemia and required transfusion on 4th floor and in a addition received one unit of transfusion while she was hospitalized and two units of blood prior to DC from the inpatient rehab performed in day surg since planned DC at 10:00 so she participated in all PT and was able to regain a lot of function but her frail status and poor reserve due to the lung CA and subsequent chemotherapy and overall debility of atrial fibrillation and overall poor prognosis, she was deemed stable for DC with her son and she was able to go up and down stairs but somatic complaints continued throughout the hospital course and will arrange for shelter placement in case she fails at home that way she can continue supportive care if she is just too weak to function at home which in my opinion I feel like will occur but maybe giving the two units that cardiology ordered of blood will 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 She will follow up with Dr. Raciel Dias in one week and Dr. Mejía for lung cancer treatment. Labs (last 24 hrs) Laboratory Tests 07/24/19 06:00: White Blood Count 11.4H, Red Blood Count 3.03L, Hemoglobin 8.8L, Hematocrit 27L, Mean Corpuscular Volume 90, Mean Corpuscular Hemoglobin 29, Mean Corpuscular Hemoglobin Concent 32, Red Cell Distribution Width 17.1H, Platelet Count 259, Mean Platelet Volume 9.5, Neutrophils (%) (Auto) 76H, Lymphocytes (%) (Auto) 9L, Monocytes (%) (Auto) 12, Eosinophils (%) (Auto) 3, Basophils (%) (Auto) 0, Neutrophils # (Auto) 8.6H, Lymphocytes # (Auto) 1.1, Monocytes # (Auto) 1.4H, Eosinophils # (Auto) 0.3, Basophils # (Auto) 0.0, Sodium Level 133L, Potassium Level 4.1, Chloride Level 101, Carbon Dioxide Level 19L, Anion Gap 13, Blood Urea Nitrogen 28H, Creatinine 0.74, Estimat Glomerular Filtration Rate > 60, BUN/Creatinine Ratio 38, Glucose Level 108H, Calcium Level 8.7, Corrected Calcium 9.5, Total Bilirubin 0.3, Aspartate Amino Transf (AST/SGOT) 12, Alanine Aminotransferase (ALT/SGPT) 13, Alkaline Phosphatase 118, Total Protein 5.4L, Albumin 3.0L 07/25/19 06:55: White Blood Count 16.6H, Red Blood Count 2.97L, Hemoglobin 8.6L, Hematocrit 27L, Mean Corpuscular Volume 90, Mean Corpuscular Hemoglobin 29, Mean Corpuscular Hemoglobin Concent 32, Red Cell Distribution Width 17.5H, Platelet Count 303, Mean Platelet Volume 9.8, Sodium Level 128L, Potassium Level 4.5, Chloride Level 98, Carbon Dioxide Level 18L, Anion Gap 12, Blood Urea Nitrogen 32H, Creatinine 0.92, Estimat Glomerular Filtration Rate 59, BUN/Creatinine Ratio 35, Glucose Level 141H, Calcium Level 8.2L, Magnesium Level 1.2L 07/27/19 05:00: White Blood Count 13.8H, Red Blood Count 2.43L, Hemoglobin 7.0L, Hematocrit 22L, Mean Corpuscular Volume 91, Mean Corpuscular Hemoglobin 29, Mean Corpuscular Hemoglobin Concent 32, Red Cell Distribution Width 17.4H, Platelet Count 289, Mean Platelet Volume 9.2, Neutrophils (%) (Auto) 79H, Lymphocytes (%) (Auto) 8L, Monocytes (%) (Auto) 10, Eosinophils (%) (Auto) 3, Basophils (%) (Auto) 0, Neutrophils # (Auto) 10.9H, Lymphocytes # (Auto) 1.1, Monocytes # (Auto) 1.3H, Eosinophils # (Auto) 0.5H, Basophils # (Auto) 0.0, Sodium Level 128L, Potassium Level 4.8, Chloride Level 100, Carbon Dioxide Level 22, Anion Gap 6, Blood Urea Nitrogen 21H, Creatinine 0.73, Estimat Glomerular Filtration Rate > 60, BUN/Creatinine Ratio 29, Glucose Level 114H, Calcium Level 8.0L, Corrected Calcium 9.0, Total Bilirubin 0.3, Aspartate Amino Transf (AST/SGOT) 15, Alanine Aminotransferase (ALT/SGPT) 14, Alkaline Phosphatase 177H, Total Protein 5.1L, Albumin 2.7L 07/28/19 00:41: Stool Occult Blood Immunoassay POSITIVEH 07/28/19 06:55: White Blood Count 15.4H, Red Blood Count 3.06L, Hemoglobin 8.5#L, Hematocrit 26L , Mean Corpuscular Volume 86, Mean Corpuscular Hemoglobin 28, Mean Corpuscular Hemoglobin Concent 32, Red Cell Distribution Width 20.5H, Platelet Count 334, Mean Platelet Volume 9.7, Neutrophils (%) (Auto) 81H, Lymphocytes (%) (Auto) 8L, Monocytes (%) (Auto) 9, Eosinophils (%) (Auto) 2, Basophils (%) (Auto) 0, Neutrophils # (Auto) 12.6H, Lymphocytes # (Auto) 1.2, Monocytes # (Auto) 1.4H, Eosinophils # (Auto) 0.3, Basophils # (Auto) 0.0, Neutrophils % (Manual) 84, Lymphocytes % (Manual) 4, Monocytes % (Manual) 11, Eosinophils % (Manual) 1, Basophils % (Manual) 0, Band Neutrophils 0, Anisocytosis MODERATE, Elliptocytes SLIGHT, Sodium Level 130L, Potassium Level 5.1H, Chloride Level 100, Carbon Dioxide Level 21, Anion Gap 9, Blood Urea Nitrogen 19H, Creatinine 0.72, Estimat Glomerular Filtration Rate > 60, BUN/Creatinine Ratio 26, Glucose Level 98, Calcium Level 8.2L 07/29/19 04:55: White Blood Count 13.3H, Red Blood Count 2.99L, Hemoglobin 8.1L, Hematocrit 26L, Mean Corpuscular Volume 87, Mean Corpuscular Hemoglobin 27, Mean Corpuscular Hemoglobin Concent 31L, Red Cell Distribution Width 20.0H, Platelet Count 381, Mean Platelet Volume 9.5, Sodium Level 132L, Potassium Level 5.2H, Chloride Level 101, Carbon Dioxide Level 22, Anion Gap 9, Blood Urea Nitrogen 17, Creatinine 0.74, Estimat Glomerular Filtration Rate > 60, BUN/Creatinine Ratio 23, Glucose Level 100, Calcium Level 8.3L 07/31/19 05:30: White Blood Count 13.5H, Red Blood Count 2.68L, Hemoglobin 7.4L, Hematocrit 24L, Mean Corpuscular Volume 88, Mean Corpuscular Hemoglobin 28, Mean Corpuscular Hemoglobin Concent 31L, Red Cell Distribution Width 19.0H, Platelet Count 333, Mean Platelet Volume 9.0, Neutrophils (%) (Auto) 79H, Lymphocytes (%) (Auto) 6L, Monocytes (%) (Auto) 10, Eosinophils (%) (Auto) 5, Basophils (%) (Auto) 0, Neutrophils # (Auto) 10.6H, Lymphocytes # (Auto) 0.8L, Monocytes # (Auto) 1.3H, Eosinophils # (Auto) 0.7H, Basophils # (Auto) 0.0, Sodium Level 132L, Potassium Level 4.5, Chloride Level 101, Carbon Dioxide Level 23, Anion Gap 8, Blood Urea Nitrogen 18, Creatinine 0.69, Estimat Glomerular Filtration Rate > 60, BUN/Creatinine Ratio 26, Glucose Level 98, Calcium Level 8.1L, Magnesium Level 1.7 Pending Labs Laboratory Tests 07/24/19 06:00: White Blood Count 11.4, Red Blood Count 3.03, Hemoglobin 8.8, Hematocrit 27, Mean Corpuscular Volume 90, Mean Corpuscular Hemoglobin 29, Mean Corpuscular Hemoglobin Concent 32, Red Cell Distribution Width 17.1, Platelet Count 259, Mean Platelet Volume 9.5, Neutrophils (%) (Auto) 76, Lymphocytes (%) (Auto) 9, M onocytes (%) (Auto) 12, Eosinophils (%) (Auto) 3, Basophils (%) (Auto) 0, Neutrophils # (Auto) 8.6, Lymphocytes # (Auto) 1.1, Monocytes # (Auto) 1.4, Eosinophils # (Auto) 0.3, Basophils # (Auto) 0.0, Sodium Level 133, Potassium Level 4.1, Chloride Level 101, Carbon Dioxide Level 19, Anion Gap 13, Blood Urea Nitrogen 28, Creatinine 0.74, Estimat Glomerular Filtration Rate > 60, BUN/ Creatinine Ratio 38, Glucose Level 108, Calcium Level 8.7, Corrected Calcium 9.5, Total Bilirubin 0.3, Aspartate Amino Transf (AST/SGOT) 12, Alanine Aminotransferase (ALT/SGPT) 13, Alkaline Phosphatase 118, Total Protein 5.4, Albumin 3.0 07/25/19 06:55: White Blood Count 16.6, Red Blood Count 2.97, Hemoglobin 8.6, Hematocrit 27, Mean Corpuscular Volume 90, Mean Corpuscular Hemoglobin 29, Mean Corpuscular Hemoglobin Concent 32, Red Cell Distribution Width 17.5, Platelet Count 303, Mean Platelet Volume 9.8, Sodium Level 128, Potassium Level 4.5, Chloride Level 98, Carbon Dioxide Level 18, Anion Gap 12, Blood Urea Nitrogen 32, Creatinine 0.92, Estimat Glomerular Filtration Rate 59, BUN/Creatinine Ratio 35, Glucose Level 141, Calcium Level 8.2, Magnesium Level 1.2 07/27/19 05:00: White Blood Count 13.8, Red Blood Count 2.43, Hemoglobin 7.0, Hematocrit 22, Mean Corpuscular Volume 91, Mean Corpuscular Hemoglobin 29, Mean Corpuscular Hemoglobin Concent 32, Red Cell Distribution Width 17.4, Platelet Count 289, Mean Platelet Volume 9.2, Neutrophils (%) (Auto) 79, Lymphocytes (%) (Auto) 8, Monocytes (%) (Auto) 10, Eosinophils (%) (Auto) 3, Basophils (%) (Auto) 0, Neutrophils # (Auto) 10.9, Lymphocytes # (Auto) 1.1, Monocytes # (Auto) 1.3, Eosinophils # (Auto) 0.5, Basophils # (Auto) 0.0, Sodium Level 128, Potassium Level 4.8, Chloride Level 100, Carbon Dioxide Level 22, Anion Gap 6, Blood Urea Nitrogen 21, Creatinine 0.73, Estimat Glomerular Filtration Rate > 60, BUN/Creatinine Ratio 29, Glucose Level 114, Calcium Level 8.0, Corrected Calcium 9.0, Total Bilirubin 0.3, Aspartate Amino Transf (AST/SGOT) 15, Alanine Aminotransferase (ALT/SGPT) 14, Alkaline Phosphatase 177, Total Protein 5.1, Albumin 2.7 07/28/19 00:41: Stool Occult Blood Immunoassay POSITIVE 07/28/19 06:55: White Blood Count 15.4, Red Blood Count 3.06, Hemoglobin 8.5, Hematocrit 26, Mean Corpuscular Volume 86, Mean Corpuscular Hemoglobin 28, Mean Corpuscular Hemoglobin Concent 32, Red Cell Distribution Width 20.5, Platelet Count 334, Mean Platelet Volume 9.7, Neutrophils (%) (Auto) 81, Lymphocytes (%) (Auto) 8, Monocytes (%) (Auto) 9, Eosinophils (%) (Auto) 2, Basophils (%) (Auto) 0, Neutrophils # (Auto) 12.6, Lymphocytes # (Auto) 1.2, Monocytes # (Auto) 1.4, Eosinophils # (Auto) 0.3, Basophils # (Auto) 0.0, Neutrophils % (Manual) 84, Lymphocytes % (Manual) 4, Monocytes % (Manual) 11, Eosinophils % (Manual) 1, Basophils % (Manual) 0, Band Neutrophils 0, Anisocytosis MODERATE, Elliptocytes SLIGHT, Sodium Level 130, Potassium Level 5.1, Chloride Level 100, Carbon Dioxide Level 21, Anion Gap 9, Blood Urea Nitrogen 19, Creatinine 0.72, Estimat Glomerular Filtration Rate > 60, BUN/Creatinine Ratio 26, Glucose Level 98, Calcium Level 8.2 9/4/19 04:55: White Blood Count 13.3, Red Blood Count 2.99, Hemoglobin 8.1, Hematocrit 26, Mean Corpuscular Volume 87, Mean Corpuscular Hemoglobin 27, Mean Corpuscular Hemoglobin Concent 31, Red Cell Distribution Width 20.0, Platelet Count 381, Mean Platelet Volume 9.5, Sodium Level 132, Potassium Level 5.2, Chloride Level 101, Carbon Dioxide Level 22, Anion Gap 9, Blood Urea Nitrogen 17, Creatinine 0.74, Estimat Glomerular Filtration Rate > 60, BUN/Creatinine Ratio 23, Glucose Level 100, Calcium Level 8.3 07/31/19 05:30: White Blood Count 13.5, Red Blood Count 2.68, Hemoglobin 7.4, Hematocrit 24, Mean Corpuscular Volume 88, Mean Corpuscular Hemoglobin 28, Mean Corpuscular Hemoglobin Concent 31, Red Cell Distribution Width 19.0, Platelet Count 333, Mean Platelet Volume 9.0, Neutrophils (%) (Auto) 79, Lymphocytes (%) (Auto) 6, Monocytes (%) (Auto) 10, Eosinophils (%) (Auto) 5, Basophils (%) (Auto) 0, Neutrophils # (Auto) 10.6, Lymphocytes # (Auto) 0.8, Monocytes # (Auto) 1.3, Eosinophils # (Auto) 0.7, Basophils # (Auto) 0.0, Sodium Level 132, Potassium Level 4.5, Chloride Level 101, Carbon Dioxide Level 23, Anion Gap 8, Blood Urea Nitrogen 18, Creatinine 0.69, Estimat Glomerular Filtration Rate > 60, BUN/Creatinine Ratio 26, Glucose Level 98, Calcium Level 8.1, Magnesium Level 1.7 Discharge Home Medications: Active Scripts Active Pantoprazole Sodium 40 Mg Tablet.dr 40 Mg PO DAILY Magnesium Oxide 400 Mg Tablet 400 Mg PO BIDPC Hydrocodone-Acetamin 5-325 mg (Hydrocodone/Acetaminophen) 1 Each Tablet 1 Tab PO Q4H PRN Reported Aspirin EC (Aspirin) 81 Mg Tablet.dr 81 Mg PO DAILY Prochlorperazine Maleate 10 Mg Tablet 10 Mg PO Q6H PRN Folic Acid 1 Mg Tablet 1 Mg PO DAILY Ventolin Hfa (Albuterol Sulfate) 18 Gm Hfa.aer.ad 2 Puff IH Q4H PRN Cartia Xt (Diltiazem HCl) 180 Mg Cap.er.24h 180 Mg PO BID Metoprolol Tartrate 100 Mg Tablet 100 Mg PO BID Furosemide 20 Mg Tablet 20 Mg PO HS PRN Symbicort 160-4.5 Mcg Inhaler (Budesonide/Formoterol Fumarate) 10.2 Gm Hfa.aer.ad 2 Puff INH BID PRN LAST FILLED 04-07-2019 #1 INHALER Furosemide 20 Mg Tablet 20 Mg PO DAILY Instructions to patient/family Please see electronic discharge instructions given to patient. Diagnosis/Problems Diagnosis/Problems (1) Debility (2) Atrial fibrillation with RVR (3) Congestive heart failure Status: Acute (4) Hypokalemia (5) Anemia of chronic disease (6) Weakness (7) Non-small cell carcinoma of lung (8) Diastolic dysfunction Status: Acute (9) Afib (10) Transfusion of blood during current hospitalization (11) Dark stools (12) Dementia (13) Somatic complaints, multiple (14) Occult blood in stools Clinical Quality Measures DVT/VTE Risk/Contraindication: Risk Factor Score Per Nursin RFS Level Per Nursing on Admit: 4+=Very High MARIA GUADALUPE VELASQUEZ DO Jul 31, 2019 09:05
--- NOTE | 2019-07-31 09:11 | Progress Note - Surgery ---
MCKENZIE CASTILLO, 07/31/19 0911: Subjective Date Seen by a Provider: Jul 31, 2019 Time Seen by a Provider: 08:45 Subjective/Events-last exam Pt does not have any nausea today. She states "it comes and goes". Pt was carrying around a basket yesterday in case of vomiting, but she never did. She denies hematemesis. She still is having black diarrhea along with cramps. Her diarrhea floats in the toilet bin. Her last BM was 07/29. She has not been eating much as she does not want to have a BM. Pt had coughed up blood about a month ago, but has not done so since. Pt is complaining of LLQ pain along with urinary urgency and frequency. She denies painful urination or hematuria. Her last colonoscopy was 2 years ago. Her hemoglobin is down to 7.4 today from being 8.1 on 07/29. Her sodium is still low at 132, but potassium has stabilized at 4.5. Objective Exam Vital Signs Date Time Temp Pulse Resp B/P (MAP) Pulse Ox O2 Delivery O2 Flow Rate FiO2 07/31/19 05:30 97.3 110 20 118/66 (83) 96 Room Air 07/30/19 21:05 Room Air 07/30/19 20:55 114 20 112/65 (81) 97 Room Air 07/30/19 18:43 97 Room Air 07/30/19 16:14 96.5 109 14 126/77 (93) 97 Room Air I & O 07/31/19 07:00 Intake Total 1065 ml Balance 1065 ml Capillary Refill : General Appearance: No Apparent Distress, WD/WN, Chronically ill, Cachetic, Thin HEENT: PERRL/EOMI, Normal ENT Inspection, Pharynx Normal, Moist Mucous Membranes Neck: Full Range of Motion, Normal Inspection, Non Tender, Supple Respiratory: Chest Non Tender, Lungs Clear, Normal Breath Sounds, No Accessory Muscle Use, No Respiratory Distress Cardiovascular: No Edema, No Gallop, No JVD, No Murmur, Irregularly Irregular Gastrointestinal: normal bowel sounds, non tender, soft, no organomegaly, no pulsatile mass Extremity: Normal Capillary Refill, Normal Inspection, Normal Range of Motion, Non Tender, No Calf Tenderness, No Pedal Edema Neurologic/Psychiatric: Alert, No Motor/Sensory Deficits, Normal Mood/Affect, Motor Weakness (generalized legs greater than arms) Skin: Normal Color, Warm/Dry Lymphatic: No Adenopathy Results Lab Laboratory Tests 07/31/19 05:30: White Blood Count 13.5H, Red Blood Count 2.68L, Hemoglobin 7.4L, Hematocrit 24L, Mean Corpuscular Volume 88, Mean Corpuscular Hemoglobin 28, Mean Corpuscular Hemoglobin Concent 31L, Red Cell Distribution Width 19.0H, Platelet Count 333, Mean Platelet Volume 9.0, Neutrophils (%) (Auto) 79H, Lymphocytes (%) (Auto) 6L, Monocytes (%) (Auto) 10, Eosinophils (%) (Auto) 5, Basophils (%) (Auto) 0, Neutrophils # (Auto) 10.6H, Lymphocytes # (Auto) 0.8L, Monocytes # (Auto) 1.3H, Eosinophils # (Auto) 0.7H, Basophils # (Auto) 0.0, Sodium Level 132L, Potassium Level 4.5, Chloride Level 101, Carbon Dioxide Level 23, Anion Gap 8, Blood Urea Nitrogen 18, Creatinine 0.69, Estimat Glomerular Filtration Rate > 60, BUN/Creatinine Ratio 26, Glucose Level 98, Calcium Level 8.1L, Magnesium Level 1.7 Assessment/Plan Assessment/Plan Assessment/Plan Anemia possibly of chronic disease Melena with Hemoccult + Lung CA LLQ pain Nausea CAD, CHF, Afib Hyponatremia Plan is to discharge pt home with son today and will do an EGD/colonoscopy as an outpatient to determine cause of anemia and melena with Hemoccult + stools along with possibly determining the cause of LLQ pain and nausea. Continue to restrict free water to address pt's hyponatremia. Clinical Quality Measures DVT/VTE Risk/Contraindication: Risk Factor Score Per Nursin RFS Level Per Nursing on Admit: 4+=Very High JESUS ESPARZA DO 07/31/19 1236: Subjective Time Seen by a Provider: 12:06 Assessment/Plan Assessment/Plan Assessment/Plan Pt is scheduled for saturday and was given Bowel Prep instruction sheet, can call this weekend if she has questions Supervisory-Addendum Brief Verification & Attestation Participated in pt care: history, MDM, physical Personally performed: exam, history, MDM Care discussed with: Medical Student Procedures: n/a Verification and Attestation of Medical Student E/M Service A medical student performed and documented this service in my presence. I reviewed and verified all information documented by the medical student and made modifications to such information, when appropriate. I personally performed the physical exam and medical decision making. Jesus Esparza, Jul 31, 2019,12:36 MCKENZIE CASTILLO, Jul 31, 2019 09:11 JESUS ESPARZA DO Jul 31, 2019 12:36
--- NOTE | 2019-07-31 09:30 | NUR ---
DR. VELASQUEZ INFORMED OF CARDIOLOGY ORDERING 2 U PRBC TO BE GIVEN TODAY PRIOR TO DISCHARGE, BUT PLANS FOR NEW PATIENT ALREADY GOING TO THAT ROOM. DR. VELASQUEZ STATES FOR PATIENT TO GO TO DAY SURGERY TO RECEIVE BLOOD.
--- NOTE | 2019-07-31 10:00 | NUR ---
ARRANGEMENTS HAVE BEEN MADE WITH DR. VARELA'S OFFICE FOR OUTPATIENT EGD AND COLONOSCOPY FOR SATURDAY. PATIENT AND SON HAVE VOICED UNDERSTANDING OF PREP.
--- NOTE | 2019-07-31 10:30 | NUR ---
2 UNITS OF PRBC HAVE BEEN ORDERED FOR TODAY, BUT DISCHARGE HAS ALREADY BEEN PLANNED AND ROOM CLAIMED FOR NEW ADMISSION. PATIENT DISCHARGED ACCOMPANIED BY SON AND NURSE AIDE TO DAY SURGERY WHERE WILL RECEIVE THE PRBC.
[2019-07-31 11:10] VITALS: BP 118/66
--- NOTE | 2019-07-31 13:09 | Therapy Team Discharge Summary ---
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 Upon evaluation patient performed bed mobility with SBA and transfers with CGA, car transfer CGA, ambulated 150' with a rolling walker with CGA (including 50' with at least 2 turns of 90 degrees and 10' over an uneven surface), and went up and down 4 steps using 2 handrails with CGA. Patient has been performing bed mobility and transfer training, balance and endurance training, functional strengthening, stair training, gait training, and education. Patient has made fair progress but has only achieved her technician terminal and repeater goals for bed mobility and transfers. Now, patient performs bed mobility with mod I, supine <-> sit mod I, sit <-> stand mod I, transfers mod I, car transfer mod I, ambulates 150' with a rolling walker with SBA (including 50' with at least 2 turns of 90 degrees and 10' over an uneven surface), and can go up and down 4 steps using 2 handrails with CGA. Patient has discharged from this facility and will be discharged from PT at this time. Occupational Therapy Decreased Activ Tolerance PT Detention Goals Detention Goals PT Detention Goals Time Frame: Aug 06, 2019 Transfers (B,C,W/C) (FIM): 7 Roll Left to Right (QC): 6 Sit to Lying (QC): 6 Lying-Sitting on Side/Bed(QC): 6 Sit to Stand (QC): 6 Chair/Hkt-vq-Ekpsv Xfer(QC): 6 Car Transfer (QC): 6 Does the Patient Walk: Yes Gait (FIM): 6 Gait distance (FIM): 3=150 ft Walk 10 feet (QC): 6 Walk 10ft-Uneven Surface(QC): 6 Walk 50ft with 2 Turns (QC): 6 Walk 150 ft (QC): 6 Gait Assistive Device: FWW (or least restrictive device) Stairs (FIM): 5 # of Steps: 4 1 Step (curb) (QC): 6 4 Steps (QC): 6 12 Steps (QC): 6 Picking up an Object (QC): 88 OT Oncology Social Work Goals Detention Goals Time Frame: Aug 06, 2019 Eating (FIM): 6 (met-07/30/2019) Eating (QC): 6 (met-07/30/2019) Oral Hygiene (QC): 6 (met-07/30/2019) Grooming(FIM): 6 (07/30/2019) Bathing(FIM): 5 (07/30/2019) Shower/Bathe Self (QC): 4 (07/30/2019) Upper Body Dressing(FIM): 6 (07/30/2019) Upper Body Dressing (QC): 6 (07/30/2019) Lower Body Dressing(FIM): 6 (07/30/2019) Lower Body Dressing (QC): 6 (07/30/2019) On/Off Footwear (QC): 6 (07/30/2019) Toileting(FIM): 6 (07/30/2019) Toileting Hygiene (QC): 6 (07/30/2019) Transfers (B,C,W/C) (FIM): 6 (07/30/2019) Toilet/Commode Transfer(FIM): 6 (07/30/2019) Toilet/Commode Transfer (QC): 6 (07/30/2019) Additional Goals: 1-Demonstrate ADL Tasks, 2-Verbalize Understanding, 3- ImproveStrength/Phil 1=Demonstrate adherence to instructed precautions during ADL tasks. 2=Patient will verbalize/demonstrate understanding of assistive franco geno/modifications for ADL. 3=Patient will improve strength/tolerance for activity to enable patient to perform ADL's. Speech Oncology Social Work Goals Detention Goals The patient will improve cognitive function so that she may return safely. Met CAN CARTER PT Jul 31, 2019 13:09
--- NOTE | 2019-08-03 15:04 | Therapy Team Discharge Summary ---
Therapy Discharge Summary Discharge Recommendations Date of Discharge Jul 31, 2019 at 10:30 Therapy D/C Recommendations: Home w/ Family Support Occupational Therapy Pt. seen by occupational therapy to increase overall strength and independence. Pt. met all goals and discharged home with son. Pt. continuing with chemotherapy treatment at discharge. No further OT needs at this time. PT Dock Guard Goals Usp Goals PT Dock Guard Goals Time Frame: Aug 06, 2019 Transfers (B,C,W/C) (FIM): 7 Roll Left to Right (QC): 6 Sit to Lying (QC): 6 Lying-Sitting on Side/Bed(QC): 6 Sit to Stand (QC): 6 Chair/Ryy-ok-Xflfw Xfer(QC): 6 Car Transfer (QC): 6 Does the Patient Walk: Yes Gait (FIM): 6 Gait distance (FIM): 3=150 ft Walk 10 feet (QC): 6 Walk 10ft-Uneven Surface(QC): 6 Walk 50ft with 2 Turns (QC): 6 Walk 150 ft (QC): 6 Gait Assistive Device: FWW (or least restrictive device) Stairs (FIM): 5 # of Steps: 4 1 Step (curb) (QC): 6 4 Steps (QC): 6 12 Steps (QC): 6 Picking up an Object (QC): 88 OT Usp Goals Usp Goals Time Frame: Aug 06, 2019 Eating (FIM): 6 (met-07/30/2019) Eating (QC): 6 (met07/30/2019) Oral Hygiene (QC): 6 (met07/30/2019) Grooming(FIM): 6 (07/30/2019) Bathing(FIM): 5 (met07/30/2019) Shower/Bathe Self (QC): 4 (07/30/2019) Upper Body Dressing(FIM): 6 (met07/30/2019) Upper Body Dressing (QC): 6 (met07/30/2019) Lower Body Dressing(FIM): 6 (met07/30/2019) Lower Body Dressing (QC): 6 (07/30/2019) On/Off Footwear (QC): 6 (met07/30/2019) Toileting(FIM): 6 (met07/30/2019) Toileting Hygiene (QC): 6 (met-07/30/2019) Transfers (B,C,W/C) (FIM): 6 ([facility]-07/30/2019) Toilet/Commode Transfer(FIM): 6 ([facility]-07/30/2019) Toilet/Commode Transfer (QC): 6 ([facility]-07/30/2019) Additional Goals: 1-Demonstrate ADL Tasks, 2-Verbalize Understanding, 3- ImproveStrength/Phli 1=Demonstrate adherence to instructed precautions during ADL tasks. 2=Patient will verbalize/demonstrate understanding of assistive devices/modifications for ADL. 3=Patient will improve strength/tolerance for activity to enable patient to perform ADL's. Speech Usp Goals Usp Goals The patient will improve cognitive function so that she may return safely. Met KIMBERLY MARTÍNEZ OT Aug 03, 2019 15:04
== END 2019-07-31 10:30 | disposition home or self-care (01) | DRG 92 ==
PROVIDERS: ADMIT Internal Medicine; ATTEND Internal Medicine
DX: G72.0 Drug-induced myopathy (principal); T45.1X5A Adverse effect of antineoplastic and immunosuppressive drugs, initial encounter; I48.0 Paroxysmal atrial fibrillation; C34.91 Malignant neoplasm of unspecified part of right bronchus or lung; I25.10 Atherosclerotic heart disease of native coronary artery without angina pectoris; I11.0 Hypertensive heart disease with heart failure; I50.32 Chronic diastolic (congestive) heart failure; E87.1 Hypo-osmolality and hyponatremia; K92.1 Melena; F41.9 Anxiety disorder, unspecified; F32.9 Major depressive disorder, single episode, unspecified; D63.8 Anemia in other chronic diseases classified elsewhere; E87.5 Hyperkalemia; F03.90 Unspecified dementia, unspecified severity, without behavioral disturbance, psychotic disturbance, mood disturbance, and anxiety; R35.0 Frequency of micturition; R39.15 Urgency of urination; R10.32 Left lower quadrant pain; F45.0 Somatization disorder; Z79.01 Long term (current) use of anticoagulants; Z95.0 Presence of cardiac pacemaker; Z87.891 Personal history of nicotine dependence
CPT/HCPCS: 36415; 80048; 80053; 82274; 83735; 85007; 85025; 85027; 86850; 86900; 86901; 86920; 93005; 93306; 94640; 94760

== ENCOUNTER 2019-07-31 10:46 | Outpatient (CLI) | payer MEDICARE ==
[~2019-07-31] VITALS: Ht 160 cm; Wt 55.0 kg
[~2019-07-31 10:46] MED LIST changes: +MAGN400T6 PO; +PANT40TA3 PO
[2019-07-31] MEDS ORDERED: NS IV 500 ML 500 ML ONE (11:55)
[2019-07-31 13:00] VITALS: BP 108/68
[2019-07-31] MEDS ORDERED: NS IV 500 ML 500 ML IV SCH (13:15)
--- NOTE | 2019-07-31 15:30 | NUR ---
REPORT RECEIVED FROM Rambo VASQUEZ RN, CARE OF PT ASSUMED AT THIS TIME. PT RESTING QUIETLY IN BED, RESPIRATIONS EASY UNLABORED, NO S/S OF DISTRESS. BLOOD INFUSING TO TO RIGHT UPPER CHEST PORT INFUSION AT 150 ML/HR. IV RATE TURNED DOWN TO 125 ML/HR. CALL LIGHT IN REACH, SIDE RAILS UP X2.
[2019-07-31 15:44] LABS: HEMOGLOBIN 10.1 G/DL (11.5-16.0)
[2019-07-31 18:20] VITALS: BP 108/68
[2019-07-31 18:21] VITALS: BP 135/70
[2019-07-31 18:26] LABS: HEMOGLOBIN 10.8 G/DL (11.5-16.0)
== END 2019-07-31 18:15 | disposition home or self-care (01) ==
LOC: SDC 10:46
PROVIDERS: ATTEND Nurse Practitioner Family
DX: Z01.89 Encounter for other specified special examinations (principal)
CPT/HCPCS: 36415; 36430; 85014; 85018; 86850; 86900; 86901; 86920

== ENCOUNTER 2019-08-03 09:37 | Day surgery (SDC) | payer MEDICARE ==
[2019-08-03] VITALS (7 sets, daily range): BP systolic 76–129; BP diastolic 50–75
[~2019-08-03] VITALS: Ht 160 cm; Wt 55.0 kg
[2019-08-03] MEDS ORDERED: LACTATED RINGERS 1,000 ML IV ONE (09:44)
[2019-08-03] MEDS ORDERED: LACTATED RINGERS 1,000 ML IV STA (10:02)
[2019-08-03] MEDS ORDERED: ONDANSETRON 4 MG/2 ML (SDV) Z0FRAN ONE (10:03)
[2019-08-03] MEDS ORDERED: PROPOFOL INJECTION 50 ML IV ONE (10:14)
[2019-08-03] MEDS ORDERED: MIDAZOLAM 2 MG/2 ML (VERSED) VIAL ONE (10:14)
[2019-08-03] MEDS ORDERED: HURRICAINE EXT TUBE (BENZOCAINE) XX PRN (10:15)
--- NOTE | 2019-08-03 10:22 | Progress Note-Pre Operative ---
Pre-Operative Progress Note H&P Reviewed The H&P was reviewed, patient examined and no changes noted. Time Seen by Provider: 10:19 Date H&P Reviewed: Aug 03, 2019 Time H&P Reviewed: 10:20 Pre-Operative Diagnosis: Anemia, melena, nausea CAMERON VARELA DO Aug 03, 2019 10:22
--- NOTE | 2019-08-03 11:02 | Progress Note-Post Operative ---
Post-Operative Progess Note Surgeon (s)/Seed Potato Arranger (s) Surgeon CAMERON VARELA DO Seed Potato Arranger: none Pre-Operative Diagnosis Anemia, melena, nausea Post-Operative Diagnosis Gastritis Esophagitis Hiatal hernia Diverticula Descending colon polyp poor prep internal hemorrhoids Procedure & Operative Findings Date of Procedure 08/03/19 Procedure Performed/Findings EGD with bx colon with bx Anesthesia Type IV sedation by ELECTRIC MOTOR TESTER ASSEMBLER Estimated Blood Loss Estimated blood loss (mL): scant Specimens/Packing Specimens Removed antral bx body bx GE jxn bx Descending colon polyp bx CAMERON VARELA DO Aug 03, 2019 11:02
--- NOTE | 2019-08-03 11:03 | Endoscopy Discharge Instruct ---
Endo Procedure/Findings Findings 1.: Gastritis 2.: Hiatal Hernia 3.: Polyp 4.: Diverticulosis, Internal Hemorrhoids Discharge Instructions - Activity: You might feel a little sleepy until tomorrow. This is due to the medicine you received to relax you. Until tomorrow, you should: NOT drive a car, operate machinery or power tools. NOT drink any alcoholic beverages. NOT make any important decisions or sign importortant papers. Do not return to work until tomorrow, unless otherwise instructed. Resume previous activities tomorrow. Diet: Start by taking liquids. If you tolerate liquids, advance to solid food. make an appointment for one week 1.: Colonoscopy in 1 year, EGD in 6-8 weeks Notify Physician - If you experience excessive bleeding, unusual abdominal pain, fever, or chest pain, contact your doctor immediately. CAMERON VARELA DO Aug 03, 2019 11:03
--- NOTE | 2019-08-04 17:28 | OPERATIVE REPORT ---
DATE OF SERVICE: 08/03/2019 PREOPERATIVE DIAGNOSES: Anemia, hemoccult positive and melanotic gastritis. POSTOPERATIVE DIAGNOSES: 1. Gastritis. 2. Esophagitis. 3. Hiatal hernia. 4. Diverticula. 5. Polyps. 6. Internal hemorrhoids. 7. Poor prep. PROCEDURES: 1. EGD with biopsy. 2. Colonoscopy with biopsy. SURGEON: Jesus Esparza, DO SPECIMEN: One biopsy from the antrum, one biopsy of body of stomach, one biopsy of the GE junction and then biopsy of the descending colon polyp. BLOOD LOSS: Scant. FLUIDS: Per anesthesia. POSTOPERATIVE CONDITION: Stable. INDICATION FOR PROCEDURE: The patient is a 78-year-old female who has been having some melena; when tested it was hemoccult positive. She also had some anemia and she was having some gastritis, needed a workup. FINDINGS: The patient had pre-severe gastritis and esophagitis. She also had a hiatal hernia, so a polyp was seen in the descending colon and she had a lot of diverticula as well as some internal hemorrhoids. Unfortunately, she had a poor prep and we were unable to get all the way to the cecum because of this poor prep. PROCEDURE NOTE: After informed consent was obtained, the patient was brought to the endoscopy suite and placed in the bed in left lateral decubitus position. She was administered IV sedation by the COMMERCIAL AGENT who monitored her vitals the entire time, heart rate, blood pressure and pulse ox and the scope was inserted starting first the EGD, pushing the scope down the mouth and through the esophagus and into the stomach and the stomach all the way down noted some moderate esophagitis, took a picture. Pushed into the stomach and saw lot of erythema in the antrum, pushed into the duodenum. Duodenum looked okay. Pulled back and did a biopsy in the antrum and then pulled back and did a biopsy of the body of stomach, retroflexed the scope, saw hiatal hernia and then pulled the scope up into the esophagus, did biopsies of the GE junction and then suctioned out the air and then pulled the scope up the esophagus and out the mouth. Switched gloves and switched cameras, went down below to do the colonoscopy. Unfortunately, the patient had a lot of retained fecal material. Pushed in. We were able to get all the way to the ascending colon and could almost see the cecum, but could not get there because of all of the fecal material did not want to cause any problems. At this point slowly withdrew the scope insufflating to look circumferentially at the kyle looking at the ascending colon up to the hepatic flexure, then down the transverse colon, splenic flexure, into the descending colon and then the descending colon, saw small flat polyp, I elected to do a biopsy of this, noted throughout the colon diverticula. Pulled the scope down into the sigmoid and finally into the rectum, retroflexed the rectal vault, saw some internal hemorrhoids, took a picture of this and then removed the scope. The patient was recovered in endoscopy suite, tolerated this well. Job ID: [id number] DocumentID: [id number] Dictated Date: 08/04/2019 10:02:10 Sprinkling Truck Driver Date: 08/04/2019 17:27:28 Dictated By: JESUS ESPARZA DO MTDArthur
== END 2019-08-03 12:15 | disposition home or self-care (01) ==
LOC: ENDO 09:37
PROVIDERS: ATTEND Surgery
DX: K29.70 Gastritis, unspecified, without bleeding (principal); D12.4 Benign neoplasm of descending colon; K20.9 Esophagitis, unspecified; D64.9 Anemia, unspecified; K31.89 Other diseases of stomach and duodenum; K44.9 Diaphragmatic hernia without obstruction or gangrene; K57.30 Diverticulosis of large intestine without perforation or abscess without bleeding; K64.8 Other hemorrhoids; I25.10 Atherosclerotic heart disease of native coronary artery without angina pectoris; J44.9 Chronic obstructive pulmonary disease, unspecified; I11.0 Hypertensive heart disease with heart failure; I50.9 Heart failure, unspecified; I48.91 Unspecified atrial fibrillation; I44.7 Left bundle-branch block, unspecified; M19.90 Unspecified osteoarthritis, unspecified site; F32.9 Major depressive disorder, single episode, unspecified; F41.9 Anxiety disorder, unspecified; Z95.0 Presence of cardiac pacemaker; Z90.710 Acquired absence of both cervix and uterus; Z88.0 Allergy status to penicillin; Z88.8 Allergy status to other drugs, medicaments and biological substances; Z79.82 Long term (current) use of aspirin; Z87.891 Personal history of nicotine dependence; Z85.118 Personal history of other malignant neoplasm of bronchus and lung; Z85.3 Personal history of malignant neoplasm of breast
CPT/HCPCS: 88305